=== PATIENT | female | born 1945 | race Caucasian/White ===

== ENCOUNTER 2016-08-27 12:50 | Emergency (ER) | payer OTHER ==
[~2016-08-27] VITALS: Ht 170.2 cm; Wt 98.1 kg
[~2016-08-27 12:50] MED LIST: ALPR1TAB3 PO; BUSP1TAB46 PO; CALC500C70 PO; EZET10TA47 PO; PARO30TA PO; SIMV40TA2 PO
[2016-08-27 12:54] VITALS: TEMP 37; Ht 170.2 cm; Wt 98.1 kg
[2016-08-27] MEDS ORDERED: BENZOCAIN/TETRACA/BUTAM SPRAY 200 APPLN/20 GM SPRY ONE (13:46)
[2016-08-27] MEDS ORDERED: CANNULA ONE ×2 (13:46)
--- NOTE | 2016-08-27 13:47 | EMERGENCY ROOM VISIT NOTE ---
ED Visit Note First contact with patient: 13:36 CHIEF COMPLAINT: Infection of the face HISTORY OF PRESENT ILLNESS: This 70-year-old female patient presents to the emergency department ambulatory after they noticed a hard, red, tender area beneath the left nare. The patient states it has been there for several days. She saw her family doctor 2 days ago and was started on Bactrim. She states that she squeezed it this morning and felt as though she got some pus out of it but it is now more painful and more swollen. She contacted her family doctor who referred her to the emergency department. It is slowly getting larger, more painful and tender. No fever, chills, or loss of appetite. There has been drainage from the area. There was no injury to the area preceding the infection. They rate the pain as sharp and 10/10. They have tried Bactrim and squeezing it. The patient has no history of subcutaneous abscesses. REVIEW OF SYSTEMS: A 6 system review of systems was completed with positives and pertinent negatives listed in the HPI. ALLERGIES: Known drug allergies MEDICATIONS: See nursing notes PMH: Asthma SOCIAL HISTORY: The patient lives locally PHYSICAL EXAM: Vital Signs: Reviewed Nurse's notes, vital signs stable. GENERAL : This is a 70 year old female, no acute distress, non toxic in appearance, well -developed well-nourished. SKIN: There is an erythematous indurated area beneath the left naris which measures about 0.5 cm in diameter. It is scabbed and indurated without fluctuance. There is a zone of inflammation around it but no lymphangitis. Capillary refill less than 2 seconds. EMERGENCY DEPARTMENT COURSE: I examined the patient. Initially, I did attempt to unroofing the scab with an 18-gauge needle. Cetacaine was used to attempt to topically anesthetize the skin. I was unable to unwilling the entire scab as the patient did not tolerate it. Therefore, incision and drainage was performed. After saline and Betadine cleansing and 3 mL of 1% buffered lidocaine anesthesia, the abscess was incised with a number 11 scalpel blade. There was no purulent drainage. There is a small amount of blood. There is no deep cavity. The area was cleaned with sterile saline and dressed with bacitracin and a bulky bandage. The patient tolerated the procedure well. The patient is already taking Bactrim. She will also be placed on Keflex. She was given Percocet in emergency department and will be given a small prescription for oxycodone. She states she has a follow-up appointment with her family doctor in 48 hours and is encouraged to keep this appointment for recheck. She should return sooner with any worsening swelling, fevers, pain. The patient was also seen and examined by Dr. da silva who agrees with the assessment and treatment plan. Blood pressure screening: The patient was found to have an elevated blood pressure and was referred to their primary care doctor for recheck and further treatment Medication Reconciliation: I attest that I have personally reviewed the patient' s current medication list. The patient was discharged home in stable condition. Problem List Medical Problems: (1) Asthma Status: Chronic Current/Historical Medications Scheduled Alprazolam (Xanax), 1 MG PO HS Buspirone Hcl (Buspirone Hcl), 7.5 MG PO BID Calcium/Vitamin D (Os-Vivek 500 Plus D), 1 TAB PO QPM Cephalexin Monohydrate (Keflex), 500 MG PO TID Ezetimibe (Zetia), 10 MG PO DAILY Paroxetine Hcl (Paxil), 60 MG PO DAILY Simvastatin (Zocor), 40 MG PO QPM Scheduled PRN Oxycodone Ir (Roxicodone Ir), 1-2 TAB PO Q4H PRN for Pain Allergies Coded Allergies: No Known Allergies (Verified , 08/27/16) Vital Signs Date Time Temp Pulse Resp B/P (MAP) Pulse Ox O2 Delivery O2 Flow Rate FiO2 08/27/16 15:15 76 18 200/110 92 08/27/16 12:54 37.0 89 20 198/115 93 Room Air Medications Administered Medications (Trade) Dose Ordered Sig/Kasie Route Start Time Stop Time Status Last Admin Dose Admin Benzocaine/ Butamben/ Tetracaine HCl (Cetacaine Christmas) 1 appln STK-MED ONCE .ROUTE 08/27/16 13:46 08/27/16 13:47 DC 08/27/16 13:46 1 APPLN Lidocaine HCl (Buffered Lidocaine 1% Inj) 20 ml NOW ONCE INFIL 08/27/16 14:00 08/27/16 14:01 DC 08/27/16 14:05 20 ML Oxycodone/ Acetaminophen (Percocet 5-325mg Tab) 1 tab NOW ONCE PO 08/27/16 14:00 08/27/16 14:01 DC 08/27/16 14:05 1 TAB Diphtheria/ Pertussis/Tetanus Vacc (Adacel Inj) 0.5 ml ONCE ONCE IM. 08/27/16 15:30 08/27/16 15:31 DC 08/27/16 15:23 0.5 ML Departure Information Impression Primary Impression: Facial cellulitis Dispostion Home / Self-Care Condition GOOD Prescriptions Oxycodone Ir (Roxicodone Ir) 5 Mg Tab 1-2 TAB PO Q4H Y for Pain, #15 TAB For Initial Treatment Prov: Marlene Huynh PA-C 08/27/16 Cephalexin Monohydrate (Keflex) 500 Mg Cap 500 MG PO TID for 7 Days, #21 CAP Prov: Marlene Huynh PA-C 08/27/16 Referrals Merlin Barrios M.D. (PCP) Patient Instructions ED [facility] Infec Abx Tx Only, [facility] Additional Instructions Continue the Bactrim as prescribed, until finished At the Keflex every 8 hours until finished Recheck with your family doctor on Sunday as scheduled Oxy IR 1-2 tablets every 4-6 hrs as needed for worse pain. No driving or alcohol use with Oxy IR. Return with any fevers, worsening swelling, worsening pain Do not squeeze or poke the area
[2016-08-27] MEDS ORDERED: XYLOCAINE 1%/SOD BICARB 20 ML VIAL INFIL ONE (14:00)
[2016-08-27] MEDS ORDERED: OXYCODONE/ACETAMINOPHEN 5-325 TAB PO ONE (14:00)
[2016-08-27] MEDS ORDERED: OXYC1TAB3 PO (14:35)
[2016-08-27] MEDS ORDERED: CEPH500C PO (14:35)
[2016-08-27 15:15] VITALS: BP 200/110; PULSE 76; O2SAT 92
[2016-08-27] MEDS ORDERED: DIPHTHERIA/TETANUS/PERTUSSIS 0.5 ML SYR/VIAL IM. ONE (15:30)
== END 2016-08-27 15:20 | disposition home or self-care (01) ==
LOC: C.EDB 12:51 → C.EDD 15:20
DX: L03.211 Cellulitis of face (principal); J45.909 Unspecified asthma, uncomplicated; Z23 Encounter for immunization

== ENCOUNTER → 2017-05-15 | Outpatient (CLI) | payer OTHER ==
[~2017-05-15] MED LIST changes: +APIX1TAB3 PO; +CALC-5 PO; +METO25TA4 PO; +OPTIRAY 320 IV PRN; +OXYC1TAB3 PO
--- NOTE | 2017-05-15 16:17 | DIAGNOSTIC IMAGING REPORT ---
CT OF THE CHEST WITH IV CONTRAST CLINICAL HISTORY: Pulmonary nodule. New opacity right medial lung base on chest radiograph. COMPARISON STUDY: Chest CT December 26, 2007, July 07, 2011 and chest radiograph May 26, 2015. TECHNIQUE: Following IV administration of 99 mL of Optiray-320, helical axial images of the chest were obtained. Sagittal and coronal reconstructions were viewed as well as maximal intensity projections on an independent 3-D workstation. A dose lowering technique was utilized adhering to the principles of ALARA. CT DOSE: 624.01 mGy.cm FINDINGS: No enlarged axillary, mediastinal or hilar lymph nodes are present. The size of the heart is at the upper limits of normal. There is no pneumothorax or pleural effusion. Linear right middle lobe and right lower lobe opacity represents atelectasis. There is no consolidation to suggest pneumonia. There are secretions within right lower lobe segmental bronchi. There is mild bronchial wall thickening. No suspicious osseous lesions are present. Prominent upper abdominal lymph nodes remain unchanged and CT of April 30, 2013. IMPRESSION: 1. No suspicious pulmonary nodules. Linear right middle lobe and right lower lobe opacities consistent with atelectasis. 2. No acute intrathoracic findings. Electronically signed by: Aston Dougherty M.D. 05/15/2017 4:16 PM Dictated Date/Time: 05/15/2017 4:10 PM
== END | disposition home or self-care (01) ==
LOC: C.CTS 15:46
PROVIDERS: ATTEND Family Medicine
DX: R91.1 Solitary pulmonary nodule (principal)

== ENCOUNTER 2017-05-18 14:35 | Emergency (ER) | payer OTHER ==
[~2017-05-18] VITALS: Ht 172.7 cm; Wt 99.9 kg
[~2017-05-18 14:35] MED LIST changes: -APIX1TAB3 PO; -BUSP1TAB46 PO; -CALC-5 PO; -METO25TA4 PO; -OPTIRAY 320 IV PRN
[2017-05-18 14:36] VITALS: TEMP 36.8
[2017-05-18] MEDS ORDERED: DILTIAZEM HCL 5 MG/ML 5 ML VIAL IV STA (14:54)
--- NOTE | 2017-05-18 15:09 | DIAGNOSTIC IMAGING REPORT ---
CHEST ONE VIEW PORTABLE CLINICAL HISTORY: EVALUATE RESPIRATORY DISTRESS.DYSPNEA dyspnea COMPARISON STUDY: 05/26/2015 FINDINGS: Mild cardiomegaly. Slight increase in pulmonary vasculature. Bibasilar atelectatic change. IMPRESSION: Mild cardiomegaly. Mild bibasilar atelectasis. The above report was generated using voice recognition software. It may contain grammatical, syntax or spelling errors. Electronically signed by: Merlin Preciado M.D. 05/18/2017 3:08 PM Dictated Date/Time: 05/18/2017 3:07 PM
[2017-05-18 15:14] VITALS: O2SAT 93; Ht 172.7 cm; Wt 99.9 kg
[2017-05-18 15:41] LABS: ISTAT CREATININE 0.8 mg/dl (0.6-1.3); ISTAT IONIZED CALCIUM 1.11 mmol/l (1.12-1.32)
[2017-05-18 15:42] LABS: BASO % 0.4 %; BASO ABS # 0.03 K/uL (0-0.2); EOS % 9.3 %; EOS ABS # 0.78 K/uL (0-0.5); HEMATOCRIT 46.9 % (37-47); HEMOGLOBIN 16.2 g/dL (12.0-16.0); IG# 0.01 K/uL (0.00-0.02); LYMPH % 34.1 %; LYMPH ABS # 2.86 K/uL (1.2-3.4); MEAN CELL VOLUME 96.1 fL (80-100); MEAN CORPUSCULAR HEMOGLOBIN 33.2 pg (25-34); MEAN CORPUSCULAR HGB CONC 34.5 g/dl (32-36); MONO % 6.2 %; MONO ABS # 0.52 K/uL (0.11-0.59); NEUT % 49.9 %; NEUT ABS # 4.19 K/uL (1.4-6.5); PLATELET COUNT 255 K/uL (130-400); RED CELL DISTRIBUTION WIDTH CV 14.3 % (11.5-14.5); RED CELL DISTRIBUTION WIDTH SD 50.9 fL (36.4-46.3); WHITE BLOOD COUNT 8.39 K/uL (4.8-10.8)
[2017-05-18] MEDS ORDERED: CALC-5 PO (15:44)
[2017-05-18 15:53] LABS: PTT PATIENT 26.3 SECONDS (21.0-31.0)
[2017-05-18] MEDS ORDERED: METOPROLOL SUCC 50MG EXT REL TAB PO STA (16:01)
[2017-05-18 16:07] LABS: ALBUMIN 3.3 gm/dl (3.4-5.0); CALCIUM 8.6 mg/dl (8.5-10.1); CREATININE 0.83 mg/dl (0.60-1.20)
[2017-05-18] MEDS ORDERED: APIXABAN 2.5 MG TAB PO STA (16:08)
[2017-05-18 16:18] LABS: PHOSPHORUS 3.9 mg/dl (2.5-4.9); TOTAL PROTEIN 6.6 gm/dl (6.4-8.2)
[2017-05-18] MEDS ORDERED: METO25TA4 PO (17:00)
[2017-05-18] MEDS ORDERED: APIX1TAB3 PO (17:00)
--- NOTE | 2017-05-18 17:00 | EMERGENCY ROOM VISIT NOTE ---
History Report prepared by Jennifer: Dawson Rollins Under the Supervision of: Dr. Seamus Flaherty M.D. First contact with patient: 14:41 Chief Complaint: CARDIAC ASSESSMENT Stated Complaint: HEART FLUTTER History of Present Illness The patient is a 71 year old white female with a past medical history of asthma , GERD, HLD, depression who presents to the ED with a cc of intermittent heart palpitations beginning a few weeks ago. Patient was seen by PCP today for symptoms of pneumonia and was found to have an irregular heart rhythm. Describes her palpitations as "fluttering" sensations in her chest. Positive shortness of breath, diaphoresis, and chest heaviness. Breathing worsened with laying down and exertion. Negative leg swelling, abdominal pain, vomiting. No problems with eating, drinking, defecation, or urination. No recent prolonged travel, or antibiotic use. No history of blood clots. Source of History: patient Onset: A few weeks ago Position: chest Quality: other ("fluttering" sensation) Timing: intermittent Associated Symptoms: + diaphoresis, + chest pain (heaviness), + SOB, + nausea, No vomiting Note: Negative leg swelling. Review of Systems See HPI for pertinent positives and negatives. A total of ten systems were reviewed and were otherwise negative. Past Medical & Surgical Medical Problems: (1) Asthma (2) Depressive Disorder Nec (3) Esophageal Reflux (4) Hyperlipidemia Nec/Nos Family History Heart disease Social History Smoking Status: Current Every Day Smoker Alcohol Use: none Drug Use: none Marital Status: single Housing Status: lives alone Occupation Status: retired Current/Historical Medications Scheduled Alprazolam (Xanax), 1 MG PO HS Apixaban (Eliquis), 5 MG PO BID Buspirone Hcl (Buspirone Hcl), 7.5 MG PO BID Calcium-Magnesium W/ Vitamin D (Calcium 500), 500 MG PO DAILY Ezetimibe (Zetia), 10 MG PO DAILY Metoprolol Succinate (Toprol Xl), 1 TAB PO DAILY Paroxetine Hcl (Paxil), 60 MG PO DAILY Simvastatin (Zocor), 40 MG PO QPM Allergies Coded Allergies: No Known Allergies (Verified , 08/27/16) Physical Exam Vital Signs Date Time Temp Pulse Resp B/P (MAP) Pulse Ox O2 Delivery O2 Flow Rate FiO2 05/18/17 17:16 107 20 165/112 92 Room Air 05/18/17 16:45 90 16 93 Room Air 05/18/17 16:31 133/84 05/18/17 16:15 56 22 92 05/18/17 16:10 63 14 148/78 92 Room Air 05/18/17 16:05 66 18 92 Room Air 05/18/17 16:01 125/87 05/18/17 16:00 62 22 91 Room Air 05/18/17 15:55 72 18 91 Room Air 05/18/17 15:50 78 16 91 05/18/17 15:46 131/80 05/18/17 15:45 75 15 91 05/18/17 15:40 76 19 92 05/18/17 15:35 77 20 92 05/18/17 15:33 79 18 121/81 94 Room Air 05/18/17 15:31 121/81 05/18/17 15:30 74 23 91 05/18/17 15:26 92 05/18/17 15:25 106 15 91 05/18/17 15:20 153 22 93 05/18/17 15:16 153 05/18/17 15:16 139/99 05/18/17 15:15 151 21 94 05/18/17 15:14 94 Room Air 05/18/17 15:14 93 Room Air 05/18/17 15:06 132/107 05/18/17 14:36 36.8 155 17 148/92 92 Room Air Physical Exam GENERAL: Awake, alert, well-appearing, NAD HENT: Normocephalic, atraumatic. EYES: Normal conjunctiva. Sclera non-icteric. NECK: Supple. No nuchal rigidity. FROM. RESPIRATORY: Trace wheezing on the right side. CARDIAC: Tachycardic rate, regular rhythm, no MRG ABDOMEN: Soft, NTND, BS+ MSK: No chest wall TTP, no LE edema NEURO: GCS 15, CN 2-12 intact, moves all 4s on command SKIN: No rash or jaundice noted. Medical Decision & Procedures ER Provider Diagnostic Interpretation: Radiology results as stated below per my review and radiologist interpretation: CHEST ONE VIEW PORTABLE FINDINGS: Mild cardiomegaly. Slight increase in pulmonary vasculature. Bibasilar atelectatic change. IMPRESSION: Mild cardiomegaly. Mild bibasilar atelectasis. The above report was generated using voice recognition software. It may contain grammatical, syntax or spelling errors. Electronically signed by: Merlin Preciado M.D. 05/18/2017 3:08 PM Laboratory Results 05/18/17 15:20 Red Blood Count 4.88, Mean Corpuscular Volume 96.1, Mean Corpuscular Hemoglobin 33.2, Mean Corpuscular Hemoglobin Concent 34.5, Mean Platelet Volume 10.0, Neutrophils (%) (Auto) 49.9, Lymphocytes (%) (Auto) 34.1, Monocytes (%) (Auto) 6.2, Eosinophils (%) (Auto) 9.3, Basophils (%) (Auto) 0.4, Neutrophils # (Auto) 4.19, Lymphocytes # (Auto) 2.86, Monocytes # (Auto) 0.52, Eosinophils # (Auto) 0.78, Basophils # (Auto) 0.03 05/18/17 15:20 Test 05/18/17 15:20 05/18/17 15:29 05/18/17 15:30 White Blood Count 8.39 K/uL (4.8-10.8) Red Blood Count 4.88 M/uL (4.2-5.4) Hemoglobin 16.2 g/dL (12.0-16.0) Hematocrit 46.9 % (37-47) Mean Corpuscular Volume 96.1 fL (80-100) Mean Corpuscular Hemoglobin 33.2 pg (25-34) Mean Corpuscular Hemoglobin Concent 34.5 g/dl (32-36) Platelet Count 255 K/uL (130-400) Mean Platelet Volume 10.0 fL (7.4-10.4) Neutrophils (%) (Auto) 49.9 % Lymphocytes (%) (Auto) 34.1 % Monocytes (%) (Auto) 6.2 % Eosinophils (%) (Auto) 9.3 % Basophils (%) (Auto) 0.4 % Neutrophils # (Auto) 4.19 K/uL (1.4-6.5) Lymphocytes # (Auto) 2.86 K/uL (1.2-3.4) Monocytes # (Auto) 0.52 K/uL (0.11-0.59) Eosinophils # (Auto) 0.78 K/uL (0-0.5) Basophils # (Auto) 0.03 K/uL (0-0.2) RDW Standard Deviation 50.9 fL (36.4-46.3) RDW Coefficient of Variation 14.3 % (11.5-14.5) Immature Granulocyte % (Auto) 0.1 % Immature Granulocyte # (Auto) 0.01 K/uL (0.00-0.02) Prothrombin Time 10.7 SECONDS (9.0-12.0) Prothromb Time International Ratio 1.0 (0.9-1.1) Activated Partial Thromboplast Time 26.3 SECONDS (21.0-31.0) Partial Thromboplastin Ratio 1.0 Est Creatinine Clear Calc Drug Dose 76.8 ml/min Estimated GFR () 82.2 Estimated GFR (Non- 70.9 BUN/Creatinine Ratio 27.1 (10-20) Calcium Level 8.6 mg/dl (8.5-10.1) Phosphorus Level 3.9 mg/dl (2.5-4.9) Magnesium Level 2.3 mg/dl (1.8-2.4) Total Bilirubin 0.7 mg/dl (0.2-1) Aspartate Amino Transf (AST/SGOT) 50 U/L (15-37) Alanine Aminotransferase (ALT/SGPT) 49 U/L (12-78) Alkaline Phosphatase 59 U/L (45-117) Troponin I 0.024 ng/ml (0-0.045) Pro-B-Type Natriuretic Peptide 1201 pg/ml (0-900) Total Protein 6.6 gm/dl (6.4-8.2) Albumin 3.3 gm/dl (3.4-5.0) Globulin 3.3 gm/dl (2.5-4.0) Albumin/Globulin Ratio 1.0 (0.9-2) Thyroid Stimulating Hormone (TSH) 2.590 uIu/ml (0.300-4.500) Bedside Troponin I < 0.030 ng/ml (0-0.045) Bedside Hemoglobin 16.3 g/dl (12.0-16.0) Bedside Hematocrit 48 % (37-47) Bedside Sodium 143 mEq/L (135-144) Bedside Potassium 4.0 mEq/L (3.3-5.0) Bedside Chloride 105 mEq/L (101-112) Bedside Total CO2 30 mEq/l (24-31) Anion Gap 13.0 mmol/L (16-25) Bedside Blood Urea Nitrogen 23 mg/dl (7-18) Bedside Creatinine 0.8 mg/dl (0.6-1.3) Bedside Glucose (other) 104 mg/dl (70-99) Bedside Ionized Calcium (Eriberto) 1.11 mmol/l (1.12-1.32) Laboratory results reviewed by me Medications Administered Medications (Trade) Dose Ordered Sig/Kasie Route Start Time Stop Time Status Last Admin Dose Admin Diltiazem HCl (Cardizem Inj) 25 mg NOW STAT IV 05/18/17 14:54 05/18/17 14:55 DC 05/18/17 15:21 25 MG Metoprolol Succinate (Toprol Xl Tab) 25 mg ONE STAT PO 05/18/17 16:01 05/18/17 16:02 DC 05/18/17 16:11 25 MG Apixaban (Eliquis Tab) 5 mg ONE STAT PO 05/18/17 16:08 05/18/17 16:10 DC 05/18/17 16:56 5 MG ECG Per My Interpretation Indication: palpitations Rate (beats per minute): V-rate 156 Rhythm: atrial flutter (2-1 conduction) Findings: T-wave inversion (slight, lateral leads), other (Normal intervals. Right axis deviation. ) Change: Repeat ECG shows Atrial Flutter with a variable block (more consistently 3-1). Ventricular rate of 85. TWI's seen laterally. ED Course 1445: The patient was evaluated in room C7. A complete history and physical exam was performed. 1702: I reevaluated the patient. Discussed results and discharge instructions: she verbalized understanding and agreement. The patient is ready for discharge. Medical Decision The patient is a 71 year old white female with a past medical history of asthma , GERD, HLD, depression who presents to the ED with a cc of intermittent heart palpitations beginning a few weeks ago. Differential diagnosis: Etiologies such as premature contractions, electrolyte abnormality, cardiac dysrhythmia, thyroid dysfunction, pulmonary embolism, infection, gastrointestinal, as well as others were entertained. Patient was seen and evaluated the bedside. Patient did complain of some rapid heart rate and some dyspnea. Patient states symptoms for approximately several weeks. Patient was seen by her primary care physician who noted she had an elevated heart rate and was referred in here. Patient denies any prior history of DVT or PE. Denies any recent prolonged car or plane travel. Patient denies any chest pains. Patient did have blood work, EKG, troponin, chest x-ray. Patient's EKG likely to show 2-1 atrial flutter. Patient was given 25 mg of Cardizem IV, and patient did have improvement in her ventricular rate with a variable but mostly 3-1 conduction in the 80s and 90s. Upon reassessment of the patient the patient was feeling improved. [id number] of 3. I discussed the patient with the on-call clinical engineering manager who recommended apixaban, Toprol 25 mg daily, and would call the patient to schedule a follow-up as well as outpatient echocardiogram. Upon reassessment the patient was feeling improved and no longer had any acute symptomatic complaints. Patient did receive her first dose of Toprol and apixaban. The patient prescriptions were provided. Patient was deemed suitable for outpatient follow-up and treatment at this time after consultation with the clinical engineering manager who agreed with the assessment and plan. Patient was given strict follow-up, discharge, and return precautions. All questions were answered. Patient was deemed suitable for outpatient follow-up at this time. Patient agreed with the plan of care and was safely discharged home. Medication Reconcilliation Current Medication List: was personally reviewed by me Blood Pressure Screening Patient's blood pressure: Normal blood pressure Blood pressure disposition: Did not require urgent referral Consults Time Called: [phone] Consulting Physician: Dr. Mora - Cardiology Returned Call: [phone] Discussed the patient's case. Dr. Mora recommends starting on Metoprolol, and NOAC. Will call patient to schedule follow up and outpatient echo. Impression Primary Impression: Atrial flutter with rapid ventricular response Additional Impression: SOB (shortness of breath) Critical Care I have personally spent greater than 35 minutes of critical care time in the direct management of this patient. This includes bedside care, interpretation of diagnostic studies, and testing, discussion with consultants, patient, and family members, and other required patient management activities. This 35 minutes is in excess of all separately billable procedures. Scribe Attestation The scribe's documentation has been prepared under my direction and personally reviewed by me in its entirety. I confirm that the note above accurately reflects all work, treatment, procedures, and medical decision making performed by me. Departure Information Dispostion Home / Self-Care Prescriptions Metoprolol Succinate (TOPROL XL) 25 Mg Tabcr 1 TAB PO DAILY for 30 Days, #30 TAB 5 Refills Prov: Seamus Flaherty M.D. 05/18/17 Apixaban (ELIQUIS) 5 Mg Tab 5 MG PO BID for 30 Days, #60 TAB Prov: Seamus Flaherty M.D. 05/18/17 Referrals Merlin Barrios M.D. (PCP) Patient Instructions Apixaban oral tablets, Atrial Flutter, My [facility] Additional Instructions Please return to the emergency department if you have worsening or recurrent symptoms not amenable to at-home treatment. Please call for a follow-up appointment with her primary care physician. Please take your medications as prescribed. If you have other concerns and/or complaints please feel free to also call your primary care physician's office or return the ED for further evaluation, management, and treatment. Please consider smoking cessation. Take your medications as prescribed. You will have a phonecall to arrange f/u with the clinical engineering manager likely within the week. If you do not receive a call by Sunday please call Dr. Mora's office to arrange a f/u appointment. You have been examined and treated today on an emergency basis only. This is not a substitute for, or an effort to provide, complete comprehensive medical care. It is impossible to recognize and treat all injuries or illnesses in a single emergency department visit. It is therefore important that you follow up closely with [facility], your PCP, and/or your specialist(s). Call as soon as possible for an appointment. Thank you for your time and consideration. I look forward to speaking with you again soon. Please don't hesitate to call us if you have any questions. Problem Qualifiers
[2017-05-18] MEDS ORDERED: BUSP1TAB46 PO (17:10)
[2017-05-18 17:16] VITALS: BP 165/112; PULSE 107; O2SAT 92
== END 2017-05-18 17:50 | disposition home or self-care (01) ==
LOC: C.EDB 14:35 → C.EDC 17:50
DX: I48.92 Unspecified atrial flutter (principal); J45.909 Unspecified asthma, uncomplicated; K21.9 Gastro-esophageal reflux disease without esophagitis; E78.5 Hyperlipidemia, unspecified; F32.9 Major depressive disorder, single episode, unspecified; F17.210 Nicotine dependence, cigarettes, uncomplicated; Z79.01 Long term (current) use of anticoagulants; Z79.899 Other long term (current) drug therapy

== ENCOUNTER 2017-11-13 14:50 | Observation (INO) | payer OTHER ==
[~2017-11-13] VITALS: Ht 172.7 cm; Wt 97.6 kg
[2017-11-13] VITALS (7 sets, daily range): BP systolic 134–180; BP diastolic 77–109; PULSE 62–78; TEMP 36.6–36.7; O2SAT 92; Ht 172.7 cm; Wt 97.6 kg
[~2017-11-13 14:50] MED LIST changes: +APIX1TAB3 PO; +ASCO500T16 PO; +BUSP1TAB46 PO; -CALC500C70 PO; +CALCTAB7 PO; +CHOL1000 PO; +CRS/10 PO; +CYAN10005 PO; +IBUP-1050 PO; +LSN10 PO; +METO25TA3 PO; -OXYC1TAB3 PO; -SIMV40TA2 PO; +SUMA100T16 PO; +VNTHFA/IN INH
--- NOTE | 2017-11-13 15:11 | EMERGENCY ROOM VISIT NOTE ---
History Report prepared by Jennifer: Mohamud Srivastava Under the Supervision of: Dr. Seamus Flaherty M.D. First contact with patient: 14:55 Stated Complaint: SOB/AFIB History of Present Illness The patient is a 71 year old white female with a past medical history of HTN, Hyperlipidemia, COPD, A-Flutter status post CTI Ablation May 2017 who is on Eliquis who presents to the Emergency Room with complaints of chest pain, shortness of breath, and rapid heart rate since yesterday. The patient states the symptoms started x26 hours ago and gradually came on. She states the symptoms have been constant, and notes nothing makes it worse. She does note the symptoms have started to get better at this time, but are still present. The patient states she is still an active 1 PPD smoker. She denies any leg swelling or unexplained recent weight gain. The patient denies a history of blood clots. The patient states she does note see a Zoo Director. Source of History: patient Onset: x1 day Position: chest Symptom Intensity: moderate Quality: ache Timing: constant Modifying Factors (Relieving): rest Associated Symptoms: + chills, + chest pain, + SOB, No fevers, No headache, No cough, No nausea, No vomiting, No abdominal pain, No diarrhea Review of Systems See HPI for pertinent positives and negatives. A total of ten systems were reviewed and were otherwise negative. Constitutional: No fever, No chills Respiratory: + shortness of breath Cardiovascular: + chest pain Abdomen: No pain, No nausea, No vomiting, No diarrhea Past Medical & Surgical Medical Problems: (1) Anxiety (2) Atrial flutter (3) COPD (chronic obstructive pulmonary disease) (4) Depressive Disorder Nec (5) Esophageal Reflux (6) Hyperlipidemia Nec/Nos (7) Hypertension (8) Left ventricular diastolic dysfunction (9) Tobacco abuse Surgical Problems: (1) History of breast biopsy (2) History of discectomy (3) History of laparoscopy (4) Status post ablation of atrial flutter Family History Heart disease Social History Smoking Status: Current Every Day Smoker Alcohol Use: none Drug Use: none Marital Status: single Housing Status: lives alone Occupation Status: retired Current/Historical Medications Scheduled Alprazolam (Xanax), 1.5 MG PO HS Apixaban (Eliquis), 5 MG PO BID Ascorbic Acid (Ascorbic Acid), 500 MG PO DAILY Buspirone Hcl (Buspirone Hcl), 7.5 MG PO BID Calcium Carbonate-Vitamin D W/ (Caltrate 600 Plus), 1 TAB PO DAILY Cholecalciferol (Vitamin D3), 1 TAB PO DAILY Cyanocobalamin (Vitamin B-12), 1,000 MCG PO DAILY Ibuprofen (Advil), 200 MG PO HS Lisinopril (Zestril), 10 MG PO QAM Paroxetine (Paroxetine HCl), 2 TAB PO DAILY Rosuvastatin Calcium (Crestor), 10 MG PO DAILY Sumatriptan Succinate (Imitrex), 100 MG PO PRN Allergies Coded Allergies: No Known Allergies (Verified , 11/13/17) Physical Exam Vital Signs Date Time Temp Pulse Resp B/P (MAP) Pulse Ox O2 Delivery O2 Flow Rate FiO2 11/13/17 16:31 177/92 11/13/17 16:27 48 17 92 11/13/17 16:01 165/83 11/13/17 15:58 45 16 91 Room Air 11/13/17 15:32 136/94 11/13/17 15:28 48 17 93 Room Air 11/13/17 15:19 95 Room Air 11/13/17 15:08 53 15 132/90 93 Room Air 11/13/17 15:05 48 11/13/17 14:57 37.1 49 149/76 95 Room Air 11/13/17 14:57 95 Room Air Physical Exam GENERAL: Wearing sunglasses. Awake, alert, well-appearing, NAD HENT: Normocephalic, atraumatic. EYES: Normal conjunctiva. Sclera non-icteric. PERRL. No anisocoria. NECK: Supple. No nuchal rigidity. FROM. RESPIRATORY: Crackles right base No rhonchi or wheezing. CARDIAC: Bradycardic. no MRG ABDOMEN: Soft, NTND, BS+ MSK: No calf pain. Negative Maia's sign. No chest wall TTP, no LE edema NEURO: GCS 15, CN 2-12 intact, moves all 4s on command SKIN: No rash or jaundice noted. Medical Decision & Procedures ER Provider Diagnostic Interpretation: Radiology results as stated below per my review and radiologist interpretation: CHEST ONE VIEW PORTABLE HISTORY: 71 years-old Female EVALUATE RESPIRATORY DISTRESS.DYSPNEA acute respiratory distress COMPARISON: Chest radiograph 05/18/2017 TECHNIQUE: Portable AP view of the chest. FINDINGS: The cardiac silhouette is mildly enlarged. Subsegmental bibasilar opacities redemonstrated. No pneumothorax, pleural effusion or overt pulmonary edema. Degenerative changes of the shoulders and spine. IMPRESSION: 1. Cardiomegaly without overt pulmonary edema. 2. Subsegmental bibasilar opacities suggest atelectasis/scarring. Laboratory Results 11/13/17 15:35 Red Blood Count 4.90, Mean Corpuscular Volume 95.9, Mean Corpuscular Hemoglobin 32.4, Mean Corpuscular Hemoglobin Concent 33.8, Mean Platelet Volume 10.0, Neutrophils (%) (Auto) 50.2, Lymphocytes (%) (Auto) 32.1, Monocytes (%) (Auto) 7.3, Eosinophils (%) (Auto) 9.9, Basophils (%) (Auto) 0.4, Neutrophils # (Auto) 3.81, Lymphocytes # (Auto) 2.43, Monocytes # (Auto) 0.55, Eosinophils # (Auto) 0.75, Basophils # (Auto) 0.03 11/13/17 15:35 Test 11/13/17 15:35 11/13/17 16:10 White Blood Count 7.58 K/uL (4.8-10.8) Red Blood Count 4.90 M/uL (4.2-5.4) Hemoglobin 15.9 g/dL (12.0-16.0) Hematocrit 47.0 % (37-47) Mean Corpuscular Volume 95.9 fL (80-100) Mean Corpuscular Hemoglobin 32.4 pg (25-34) Mean Corpuscular Hemoglobin Concent 33.8 g/dl (32-36) Platelet Count 226 K/uL (130-400) Mean Platelet Volume 10.0 fL (7.4-10.4) Neutrophils (%) (Auto) 50.2 % Lymphocytes (%) (Auto) 32.1 % Monocytes (%) (Auto) 7.3 % Eosinophils (%) (Auto) 9.9 % Basophils (%) (Auto) 0.4 % Neutrophils # (Auto) 3.81 K/uL (1.4-6.5) Lymphocytes # (Auto) 2.43 K/uL (1.2-3.4) Monocytes # (Auto) 0.55 K/uL (0.11-0.59) Eosinophils # (Auto) 0.75 K/uL (0-0.5) Basophils # (Auto) 0.03 K/uL (0-0.2) RDW Standard Deviation 50.1 fL (36.4-46.3) RDW Coefficient of Variation 14.2 % (11.5-14.5) Immature Granulocyte % (Auto) 0.1 % Immature Granulocyte # (Auto) 0.01 K/uL (0.00-0.02) Prothrombin Time 10.7 SECONDS (9.0-12.0) Prothromb Time International Ratio 1.0 (0.9-1.1) Activated Partial Thromboplast Time 28.8 SECONDS (21.0-31.0) Partial Thromboplastin Ratio 1.1 Anion Gap 8.0 mmol/L (3-11) Est Creatinine Clear Calc Drug Dose 97.5 ml/min Estimated GFR () 103.5 Estimated GFR (Non- 89.3 BUN/Creatinine Ratio 31.6 (10-20) Calcium Level 8.8 mg/dl (8.5-10.1) Phosphorus Level 4.4 mg/dl (2.5-4.9) Magnesium Level 2.2 mg/dl (1.8-2.4) Total Bilirubin 0.2 mg/dl (0.2-1) Aspartate Amino Transf (AST/SGOT) 41 U/L (15-37) Alanine Aminotransferase (ALT/SGPT) 51 U/L (12-78) Alkaline Phosphatase 71 U/L (45-117) Troponin I < 0.015 ng/ml (0-0.045) Pro-B-Type Natriuretic Peptide 347 pg/ml (0-900) Total Protein 6.6 gm/dl (6.4-8.2) Albumin 3.2 gm/dl (3.4-5.0) Globulin 3.4 gm/dl (2.5-4.0) Albumin/Globulin Ratio 0.9 (0.9-2) Thyroid Stimulating Hormone (TSH) 1.520 uIu/ml (0.300-4.500) Urine Color YELLOW Urine Appearance CLEAR (CLEAR) Urine pH 6.0 (4.5-7.5) Urine Specific [place] 1.020 (1.000-1.030) Urine Protein NEG (NEG) Urine Glucose (UA) NEG (NEG) Urine Ketones NEG (NEG) Urine Occult Blood NEG (NEG) Urine Nitrite NEG (NEG) Urine Bilirubin NEG (NEG) Urine Urobilinogen NEG (NEG) Urine Leukocyte Esterase SMALL (NEG) Urine WBC (Auto) 5-10 /hpf (0-5) Urine RBC (Auto) 0-4 /hpf (0-4) Urine Hyaline Casts (Auto) 1-5 /lpf (0-5) Urine Epithelial Cells (Auto) 5-10 /lpf (0-5) Urine Bacteria (Auto) NEG (NEG) Laboratory results reviewed by me ECG Per My Interpretation Indication: chest pain, SOB/dyspnea Rate (beats per minute): 53 Rhythm: other (Junctional escape rhythm) Findings: other (ventricular rate of 53, single PAC noted) Comparison ECG Date: Rhythm has changed when compared to May 2017, otherwise no significant changes Medical Decision Nursing notes reviewed. Ancillary studies and prior records reviewed. The patient is a 71 year old white female with a past medical history of HTN, Hyperlipidemia, COPD, A-Flutter status post CTI Ablation May 2017 who is on Eliquis who presents to the Emergency Room with complaints of chest pain, shortness of breath, and rapid heart rate since yesterday. Differential diagnosis: Etiologies such as infections, reactive airway disease, pneumonia, pneumothorax , COPD, CHF, cardiac ischemia, pulmonary embolism, musculoskeletal, gastrointestinal, as well as others were entertained. Patient was seen and evaluated the bedside. The patient is presenting with complaints of some shortness of breath and did complain of some palpitations. The patient does have a known history of atrial flutter and has been taking Toprol as well as blood thinning medication. The patient also did have an ablation completed back in May. The patient was referred from cardiology clinic. The patient does still smoke and she was counseled on smoking cessation. Patient did have blood work completed along with EKG troponin chest x-ray. Patient's chest x-ray shows atelectasis. EKG does show a possible junctional rhythm with a PAC. Difficult to see if the patient does have distinct P waves. Patient's other blood work is fairly unremarkable. I did discuss the case with the on-call accounts manager who did evaluate the patient at the bedside and recommended observation and with talked about a possible treadmill stress in the morning. I did convey this to the on-call hospitalist who agreed to further evaluate and treat the patient. Of note the patient reportedly had been continuing to take her Cardizem and had been told to stop this. This may be contributory to her bradycardia. Medication Reconcilliation Current Medication List: was personally reviewed by me Blood Pressure Screening Patient's blood pressure: Elevated blood pressure Blood pressure disposition: Referred to PCP Consults Consulting Physician: Dr. Boles Returned Call: [phone] Recommends observation, cardiac work up and possible treadmill stress test in AM. Additional Consults: Time Called: 1633 Consulted Physician: Dr. Sepulveda ([facility] Hospitalist) Returned Call: [phone] Additional Comments: Agrees to Admit Impression Primary Impression: SOB (shortness of breath) Additional Impressions: Junctional bradycardia Encounter for smoking cessation counseling Scribe Attestation The scribe's documentation has been prepared under my direction and personally reviewed by me in its entirety. I confirm that the note above accurately reflects all work, treatment, procedures, and medical decision making performed by me. Departure Information Dispostion Being Evaluated By Hospitalist Referrals Merlin Barrios M.D. (PCP) Forms HOME CARE DOCUMENTATION FORM, IMPORTANT VISIT INFORMATION Patient Instructions My [facility] Problem Qualifiers
--- NOTE | 2017-11-13 15:35 | DIAGNOSTIC IMAGING REPORT ---
CHEST ONE VIEW PORTABLE HISTORY: 71 years-old Female EVALUATE RESPIRATORY DISTRESS.DYSPNEA acute respiratory distress COMPARISON: Chest radiograph 05/18/2017 TECHNIQUE: Portable AP view of the chest. FINDINGS: The cardiac silhouette is mildly enlarged. Subsegmental bibasilar opacities redemonstrated. No pneumothorax, pleural effusion or overt pulmonary edema. Degenerative changes of the shoulders and spine. IMPRESSION: 1. Cardiomegaly without overt pulmonary edema. 2. Subsegmental bibasilar opacities suggest atelectasis/scarring. The above report was generated using voice recognition software. It may contain grammatical, syntax or spelling errors. Electronically signed by: John Andrews M.D. 11/13/2017 3:34 PM Dictated Date/Time: 11/13/2017 3:33 PM
[2017-11-13 15:43] LABS: BASO % 0.4 %; BASO ABS # 0.03 K/uL (0-0.2); EOS % 9.9 %; EOS ABS # 0.75 K/uL (0-0.5); HEMOGLOBIN 15.9 g/dL (12.0-16.0); IG# 0.01 K/uL (0.00-0.02); LYMPH % 32.1 %; LYMPH ABS # 2.43 K/uL (1.2-3.4); MEAN CELL VOLUME 95.9 fL (80-100); MEAN CORPUSCULAR HEMOGLOBIN 32.4 pg (25-34); MEAN CORPUSCULAR HGB CONC 33.8 g/dl (32-36); MONO % 7.3 %; MONO ABS # 0.55 K/uL (0.11-0.59); NEUT % 50.2 %; NEUT ABS # 3.81 K/uL (1.4-6.5); PLATELET COUNT 226 K/uL (130-400); RED CELL DISTRIBUTION WIDTH CV 14.2 % (11.5-14.5); RED CELL DISTRIBUTION WIDTH SD 50.1 fL (36.4-46.3); WHITE BLOOD COUNT 7.58 K/uL (4.8-10.8)
[2017-11-13 15:52] LABS: PTT PATIENT 28.8 SECONDS (21.0-31.0)
[2017-11-13 16:10] LABS: ALBUMIN 3.2 gm/dl (3.4-5.0); ALKALINE PHOSPHATASE 71 U/L (45-117); ALT/SGPT 51 U/L (12-78); AST/SGOT 41 U/L (15-37); BLOOD UREA NITROGEN 21 mg/dl (7-18); CALCIUM 8.8 mg/dl (8.5-10.1); CARBON DIOXIDE 26 mmol/L (21-32); CREATININE 0.65 mg/dl (0.60-1.20); GLUCOSE 90 mg/dl (70-99); PHOSPHORUS 4.4 mg/dl (2.5-4.9); POTASSIUM 4.3 mmol/L (3.5-5.1); SODIUM 141 mmol/L (136-145); TOTAL PROTEIN 6.6 gm/dl (6.4-8.2)
[2017-11-13] MEDS ORDERED: ACETAMINOPHEN 325 MG TAB PO PRN (17:15)
[2017-11-13] MEDS ORDERED: LEVALBUTEROL/IPRATROPIUM NEB INH PRN ×2 (17:15→17:30)
[2017-11-13] MEDS ORDERED: IPRATROPIUM BROMIDE NEB SOLN 0.02% 2.5 ML VIAL INH PRN (17:45)
[2017-11-13] MEDS ORDERED: LEVALBUTEROL 1.25MG/0.5ML NEB INH PRN (17:45)
--- NOTE | 2017-11-13 17:56 | History and Physical ---
History & Physical Date & Time of Service: Nov 13, 2017 at 17:30 Chief Complaint: Sob/Afib Primary Care Physician: Merlin Barrios M.D. History of Present Illness Source: patient This is a 71 year old white female with a PMH of Paroxysmal Atrial Flutter s/p ablation on 06/19/[address] Wilson, HTN, HLD, COPD, Tobacco Abuse, Anxiety, Depression, Left Ventricular Diastolic Dysfunction who presents to [facility] from outpatient cardiology office secondary to Bradycardia. Yesterday around 1 PM while resting in seated position she had episode lasted 1 hour with symptoms including diaphoresis, chills, feeling faint , pain in left arm, shortness of breath, palpitation. Nothing made symptoms better or worse. Symptoms resolved on their own. She tried to eat food, thought she was hungry but this did not help. Never had anything like this in the past. She denies syncope. She followed up in outpatient cardiology office today secondary to symptoms in which it was noted she had sinus bradycardia with possible junctional rhythm therefore referred to ED for further evaluation. Currently she feels, "fine." Denies fever, chills, sweats, lightheadedness, dizziness, chest pain, shortness of breath, wheezing, palpitations, nausea, vomiting, diarrhea. She has had no change in bowel or bladder habits. Appetite is normal. She is status post atrial flutter ablation on 06/19/17. She was treated with metoprolol, diltiazem, Eliquis for her atrial flutter. In July in follow-up with Dr. Wilson it was recommended to stop metoprolol secondary to bradycardia. When she returned to outpatient cardiology October 18, seen by Marisabel Palma PA-C it was recommended to stop diltiazem secondary to bradycardia. She had a ZIO monitor which did not reveal any A. fib/atrial flutter. Patient admits that she stopped her diltiazem for approximately 4-5 days; however restarted it for unknown reason. In the ED lab work was relatively unremarkable, troponin negative, BNP 347, TSH 1.52, chest x- ray cardiomegaly, atelectasis. EKG revealed junctional rhythm with bradycardia 53 bpm. Past Medical/Surgical History Medical Problems: (1) Anxiety Status: Chronic (2) Atrial flutter Permanent Comment: s/p Ablation 06/19/[address] Wilson Status: Chronic (3) COPD (chronic obstructive pulmonary disease) Status: Chronic (4) Depressive Disorder Nec Status: Chronic (5) Esophageal Reflux Status: Chronic (6) Hyperlipidemia Nec/Nos Status: Chronic (7) Hypertension Status: Chronic (8) Left ventricular diastolic dysfunction Permanent Comment: last echo 08/21/17 EF 55-59% with left ventricular DD Status: Chronic (9) Tobacco abuse Status: Chronic Surgical Problems: (1) History of breast biopsy Status: Chronic (2) History of discectomy Status: Chronic (3) History of laparoscopy Permanent Comment: endometriosis Status: Chronic (4) Status post ablation of atrial flutter Status: Chronic Family History Diabetes mellitus BROTHER SISTER FHx: thyroid disease MOTHER, Age:92 SISTER SISTER Social History Smoking Status: Current Every Day Smoker (50 pack year history) Smokeless Tobacco Use: No Alcohol Use: rare, 1-2x per year Drug Use: none Marital Status: single Housing status: lives alone Immunizations History of Influenza Vaccine: Yes Influenza Vaccine Date: Dec 07, 2015 History of Tetanus Vaccine?: Yes Tetanus Immunization Date: Jan 15, 2008 History of Pneumococcal: Yes Pneumococcal Date: Nov 07, 2016 History of Hepatitis B Vaccine: Unknown Allergies Coded Allergies: No Known Allergies (Verified , 11/13/17) Home Medications Scheduled Alprazolam (Xanax), 1.5 MG PO HS Apixaban (Eliquis), 5 MG PO BID Ascorbic Acid (Ascorbic Acid), 500 MG PO DAILY Buspirone Hcl (Buspirone Hcl), 7.5 MG PO BID Calcium Carbonate-Vitamin D W/ (Caltrate 600 Plus), 1 TAB PO DAILY Cholecalciferol (Vitamin D3), 1 TAB PO DAILY Cyanocobalamin (Vitamin B-12), 1,000 MCG PO DAILY Ibuprofen (Advil), 200 MG PO HS Lisinopril (Zestril), 10 MG PO QAM Paroxetine (Paroxetine HCl), 2 TAB PO DAILY Rosuvastatin Calcium (Crestor), 10 MG PO DAILY Sumatriptan Succinate (Imitrex), 100 MG PO PRN Review of Systems As noted per HPI, 10 systems reviewed and negative unless noted above. Physical Exam Vital Signs Date Time Temp Pulse Resp B/P (MAP) Pulse Ox O2 Delivery O2 Flow Rate FiO2 8/21/18 16:31 177/92 11/13/17 16:27 48 17 92 11/13/17 16:01 165/83 11/13/17 15:58 45 16 91 Room Air 11/13/17 15:32 136/94 11/13/17 15:28 48 17 93 Room Air 11/13/17 15:19 95 Room Air 11/13/17 15:08 53 15 132/90 93 Room Air 11/13/17 15:05 48 11/13/17 14:57 37.1 49 149/76 95 Room Air 11/13/17 14:57 95 Room Air General Appearance: WD/WN (F, lying in bed), no apparent distress, + obese Head: normocephalic, atraumatic Eyes: normal inspection, PERRL, sclerae normal ENT: normal ENT inspection, + pertinent finding (Mucous membranes moist) Neck: supple, no adenopathy, thyroid normal, no JVD Respiratory/Chest: chest non-tender, lungs clear, normal breath sounds, no respiratory distress, no accessory muscle use, + wheezing (expiratory wheezing throughout, not cleared with cough, ) Cardiovascular: no edema, no gallop, no JVD, no murmur, normal peripheral pulses, + bradycardia Abdomen/GI: normal bowel sounds, non tender, soft, + distended (secondary to obesity) Back: normal inspection, no muscle spasm, normal range of motion Extremities/Musculoskelatal: normal inspection, no calf tenderness, normal capillary refill, no pedal edema, normal range of motion 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, alert, normal mood/affect, oriented x 3 Skin: normal color, no rash Lymphatic: no adenopathy Diagnostics Laboratory Results Results Past 24 Hours Test 11/13/17 15:35 11/13/17 16:10 Range/Units White Blood Count 7.58 4.8-10.8 K/uL Red Blood Count 4.90 4.2-5.4 M/uL Hemoglobin 15.9 12.0-16.0 g/dL Hematocrit 47.0 37-47 % Mean Corpuscular Volume 95.9 80-100 fL Mean Corpuscular Hemoglobin 32.4 25-34 pg Mean Corpuscular Hemoglobin Concent 33.8 32-36 g/dl Platelet Count 226 130-400 K/uL Mean Platelet Volume 10.0 7.4-10.4 fL Neutrophils (%) (Auto) 50.2 % Lymphocytes (%) (Auto) 32.1 % Monocytes (%) (Auto) 7.3 % Eosinophils (%) (Auto) 9.9 % Basophils (%) (Auto) 0.4 % Neutrophils # (Auto) 3.81 1.4-6.5 K/uL Lymphocytes # (Auto) 2.43 1.2-3.4 K/uL Monocytes # (Auto) 0.55 0.11-0.59 K/uL Eosinophils # (Auto) 0.75 0-0.5 K/uL Basophils # (Auto) 0.03 0-0.2 K/uL RDW Standard Deviation 50.1 36.4-46.3 fL RDW Coefficient of Variation 14.2 11.5-14.5 % Immature Granulocyte % (Auto) 0.1 % Immature Granulocyte # (Auto) 0.01 0.00-0.02 K/uL Prothrombin Time 10.7 9.0-12.0 SECONDS Prothromb Time International Ratio 1.0 0.9-1.1 Activated Partial Thromboplast Time 28.8 21.0-31.0 SECONDS Partial Thromboplastin Ratio 1.1 Sodium Level 141 136-145 mmol/L Potassium Level 4.3 3.5-5.1 mmol/L Chloride Level 107 98-107 mmol/L Carbon Dioxide Level 26 21-32 mmol/L Anion Gap 8.0 3-11 mmol/L Blood Urea Nitrogen 21 7-18 mg/dl Creatinine 0.65 0.60-1.20 mg/dl Est Creatinine Clear Calc Drug Dose 97.5 ml/min Estimated GFR () 103.5 Estimated GFR (Non- 89.3 BUN/Creatinine Ratio 31.6 10-20 Random Glucose 90 70-99 mg/dl Calcium Level 8.8 8.5-10.1 mg/dl Phosphorus Level 4.4 2.5-4.9 mg/dl Magnesium Level 2.2 1.8-2.4 mg/dl Total Bilirubin 0.2 0.2-1 mg/dl Aspartate Amino Transf (AST/SGOT) 41 15-37 U/L Alanine Aminotransferase (ALT/SGPT) 51 12-78 U/L Alkaline Phosphatase 71 45-117 U/L Troponin I < 0.015 0-0.045 ng/ml Pro-B-Type Natriuretic Peptide 347 0-900 pg/ml Total Protein 6.6 6.4-8.2 gm/dl Albumin 3.2 3.4-5.0 gm/dl Globulin 3.4 2.5-4.0 gm/dl Albumin/Globulin Ratio 0.9 0.9-2 Thyroid Stimulating Hormone (TSH) 1.520 0.300-4.500 uIu/ml Urine Color YELLOW Urine Appearance CLEAR CLEAR Urine pH 6.0 4.5-7.5 Urine Specific [place] 1.020 1.000-1.030 Urine Protein NEG NEG Urine Glucose (UA) NEG NEG Urine Ketones NEG NEG Urine Occult Blood NEG NEG Urine Nitrite NEG NEG Urine Bilirubin NEG NEG Urine Urobilinogen NEG NEG Urine Leukocyte Esterase SMALL NEG Urine WBC (Auto) 5-10 0-5 /hpf Urine RBC (Auto) 0-4 0-4 /hpf Urine Hyaline Casts (Auto) 1-5 0-5 /lpf Urine Epithelial Cells (Auto) 5-10 0-5 /lpf Urine Bacteria (Auto) NEG NEG Diagnostic Radiology CXR: cardiomegaly, b/l atelectasis EKG 53bpm with junctional rhythm, QTC 416 Impression Assessment and Plan This is a 71 year old white female with a PMH of Paroxysmal Atrial Flutter s/p ablation on 06/19/[address] Wilson, HTN, HLD, COPD, Tobacco Abuse, Anxiety, Depression, Left Ventricular Diastolic Dysfunction who presents to [facility] from outpatient cardiology office secondary to Bradycardia. She is status post atrial flutter ablation on 06/19/17. She was treated with metoprolol, diltiazem, Eliquis for her atrial flutter. In July in follow-up with Dr. Wilson it was recommended to stop metoprolol secondary to bradycardia. When she returned to outpatient cardiology October 18, seen by Marisabel Palma PA-C it was recommended to stop diltiazem secondary to bradycardia. She had a ZIO monitor which did not reveal any A. fib/atrial flutter. Patient admits that she stopped her diltiazem for approximately 4-5 days; however restarted it for unknown reason. In the ED lab work was relatively unremarkable, troponin negative, BNP 347, TSH 1.52, chest x-ray cardiomegaly, atelectasis. EKG revealed junctional rhythm with bradycardia 53 bpm. BRADYCARDIA WITH JUNCTIONAL RHYTHM -admit to telemetry under observation -Repeat ECG in a.m. -N.p.o. after midnight -Resting echo in a.m. -Cardiology consulted, spoke with Dr. Boles -Avoid BB and CCB. Diltiazem discontinued -Maintain adequate blood pressure -CBC, BMP in a.m. PAROXYSMAL ATRIAL FLUTTER -Continue Eliquis -Stop diltiazem -Monitor on telemetry HTN -bp currently on high side, monitor -continue lisinopril -monitor for hypotension HLD -continue statin therapy LEFT VENTRICULAR DIASTOLIC DYSFUNCTION -continue Lisinopril -Resting Echo in a.m. COPD -recommend tobacco cessation -add levalbuterol/ipratropium q6hr prn for SOB/Wheezing -Patient most likely could benefit from ICS/ TOBACCO ABUSE -nicotine patch 21mg -recommend tobacco cessation ANXIETY -continue buspar, xanax DEPRESSION -continue paxil, mood stable DISPOSITION -discharge to home when medical able ADDENDUM: This is a 71 year old female with paroxysmal atrial flutter s/p ablation on long -term anticoagulation, HTN, HLD, tobacco use disorder, COPD, depression/anxiety - presents with dizziness, sweatiness, shortness of breath, etc. Currently patient is not having any symptoms. Was sent by cardiology for stress test. On exam: wheezing diffusely, bradycardic Plan: hold CCB, B-micky NPO after midnight resting echo, possible stress echo nebs for her wheezing counseled on smoking cessation Resuscitation Status DNR Spoke with patient and wishes to be DNR VTE Prophylaxis Will order VTE Prophylaxis: Yes (We will continue eliquis)
[2017-11-13] MEDS ORDERED: PARO30TA4 PO (18:01)
[2017-11-13] MEDS ORDERED: IV FLUIDS COMPLETED PRN (18:30)
[2017-11-13] MEDS ORDERED: ENALAPRILAT IV 1.25 MG in DEXTROSE 5% 25ML 25 ML IV STA (19:55)
[2017-11-13] MEDS: BusPIRone 15 MG TAB PO SCH (20:21)
[2017-11-13] MEDS: APIXABAN 5 MG TAB PO SCH (20:23)
[2017-11-13] MEDS ORDERED: IBUPROFEN 200 MG TAB PO SCH (21:00)
[2017-11-13] MEDS ORDERED: IPRATROPIUM BROMIDE NEB SOLN 0.02% 2.5 ML VIAL INH SCH (21:00)
[2017-11-13] MEDS ORDERED: ALPRAZOLAM 0.5 MG TAB PO SCH (21:00)
[2017-11-13] MEDS ORDERED: LEVALBUTEROL 1.25MG/0.5ML NEB INH SCH (21:00)
[2017-11-13] MEDS ORDERED: HydrALAZINE 10 MG TAB PO PRN (23:30)
[2017-11-14 03:01] VITALS: BP_SYST 109; BP_SYST 148; BP_DIAS 67; BP_DIAS 75; PULSE 68; TEMP 36.7; O2SAT 91
[2017-11-14 06:57] VITALS: BP 152/92; PULSE 68; TEMP 36.8; O2SAT 90
[2017-11-14 07:08] LABS: HEMATOCRIT 47.8 % (37-47); MEAN CELL VOLUME 96.8 fL (80-100); MEAN CORPUSCULAR HEMOGLOBIN 32.4 pg (25-34); MEAN CORPUSCULAR HGB CONC 33.5 g/dl (32-36); MEAN PLATELET VOLUME 10.2 fL (7.4-10.4); PLATELET COUNT 230 K/uL (130-400); RED CELL DISTRIBUTION WIDTH CV 14.2 % (11.5-14.5); RED CELL DISTRIBUTION WIDTH SD 50.7 fL (36.4-46.3); WHITE BLOOD COUNT 7.02 K/uL (4.8-10.8)
[2017-11-14 07:23] LABS: CALCIUM 8.5 mg/dl (8.5-10.1); CREATININE 0.69 mg/dl (0.60-1.20); POTASSIUM 3.9 mmol/L (3.5-5.1)
[2017-11-14 08:00] VITALS: PULSE 64; O2SAT 90
[2017-11-14] MEDS: APIXABAN 5 MG TAB PO SCH (08:04)
[2017-11-14] MEDS: BusPIRone 15 MG TAB PO SCH (08:05)
--- NOTE | 2017-11-14 08:42 | ECHOCARDIOGRAM REPORT ---
*NOTICE TO RECEIVING [employer] This information is strictly Confidential and protected under [place] law. [place] law prohibits you from making any further disclosure of this information unless further disclosure is expressly permitted by the written consent of the person to whom it pertains or is authorized by law. A general authorization for the release of medical or other information is not sufficient for this purpose. Hospital accepts no responsibility if the information is made available to any other person, INCLUDING THE PATIENT. Interpretation Summary * Name: PACO JOHNSON Study Date: 11/14/2017 06:37 AM BP: 152/92 mmHg * Patient Location: C.2T\S\S243\S\1 HR: 57 * : 1945 (M/d/yyyy) Gender: Female Height: 68 in * Age: 71 yrs Ethnicity: CA Weight: 217 lb * Ordering Physician: Ayse White * Referring Physician: Self, Referred * Performed By: Marlene Collins RDCS * * Reason For Study: BRADYCARDIA * BSA: 2.1 m2 * -- Conclusions -- * No significant change compared to previous study of 08/21/17. * Normal LV chamber size with mild concentric LVH. * Normal LV systolic function, EF 60-65%. * No segmental left ventricular wall motion abnormalities are noted. * Grade I diastolic dysfunction. * No significant valvular pathology. Procedure Details * A contrast injection of Definity was performed to improve assessment of LV function. * Contrast was injected into an intravenous site in the right arm. * One vial of Definity ultrasound contrast was diluted in normal saline to a total volume of 10 ml. A total of '2' ml of solution was administered during imaging. * Lot # [id number] of Definity utilized for procedure. * Expiration date 1 OCT 11. * The attending nurse who injected the contrast agent was ZULEMA SAWYER RN. Left Ventricle * The left ventricle is normal in size. * There is mild concentric left ventricular hypertrophy. * Ejection Fraction = 60-65%. * Left ventricular systolic function is normal. * No segmental left ventricular wall motion abnormalities are noted. * The left ventricular wall motion is normal. Right Ventricle * The right ventricular cavity size is normal (basal dimension <4.2 cm in right ventricular apical 4-chamber view). * The right ventricular systolic function is normal as assessed by tricuspid annular plane systolic excursion (TAPSE) (normal >1.5 cm). Atria * The left atrial size is normal. * Right atrial size is normal. * No ASD detected; PFO is not assessed. Mitral Valve * The mitral valve is normal in structure and function. Tricuspid Valve * The tricuspid valve is normal in structure and function. Aortic Valve * The aortic valve is normal in structure and function. Pulmonic Valve * The pulmonary valve is not well seen, but the Doppler examination is normal without significant regurgitation or stenosis. Great Vessels * The aortic root is normal size. Pericardium/Pleural * There is no pericardial effusion. Left Ventricular Diastolic Function * Grade I diastolic dysfunction, (abnormal relaxation pattern). MMode 2D Measurements and Calculations IVSd 1.4 cm IVSs 2.0 cm LVIDd 4.3 cm LVIDs 2.9 cm LVPWd 1.3 cm LVPWs 1.5 cm IVS/LVPW 1.1 FS 32.7 % EDV(Teich) 83.6 ml ESV(Teich) 32.3 ml EF(Teich) 61.4 % EDV(cubed) 80.2 ml ESV(cubed) 24.5 ml EF(cubed) 69.5 % % IVS thick 42.7 % % LVPW thick 18.2 % LV mass(C)d 218.4 grams LV mass(C)dI 103.2 grams/m\S\2 LV mass(C)s 199.5 grams LV mass(C)sI 94.3 grams/m\S\2 SV(Teich) 51.4 ml SI(Teich) 24.3 ml/m\S\2 SV(cubed) 55.8 ml SI(cubed) 26.3 ml/m\S\2 LVAd ap4 31.1 cm\S\2 LVLd ap4 7.9 cm EDV(MOD-sp4) 98.2 ml EDV(sp4-el) 103.8 ml LVAs ap4 17.2 cm\S\2 LVLs ap4 6.4 cm ESV(MOD-sp4) 39.7 ml ESV(sp4-el) 39.2 ml EF(MOD-sp4) 59.6 % EF(sp4-el) 62.2 % LVAd ap2 29.4 cm\S\2 LVLd ap2 7.5 cm EDV(MOD-sp2) 92.7 ml EDV(sp2-el) 97.3 ml LVAs ap2 15.9 cm\S\2 LVLs ap2 6.4 cm ESV(MOD-sp2) 33.7 ml ESV(sp2-el) 33.5 ml EF(MOD-sp2) 63.6 % EF(sp2-el) 65.6 % LVLd %diff -5.19 % EDV(MOD-bp) 97.8 ml LVLs %diff 0.28 % ESV(MOD-bp) 36.7 ml EF(MOD-bp) 62.5 % SV(MOD-sp4) 58.5 ml SI(MOD-sp4) 27.6 ml/m\S\2 SV(MOD-sp2) 58.9 ml SI(MOD-sp2) 27.9 ml/m\S\2 SV(MOD-bp) 61.1 ml SI(MOD-bp) 28.9 ml/m\S\2 SV(sp4-el) 64.6 ml SI(sp4-el) 30.5 ml/m\S\2 SV(sp2-el) 63.8 ml SI(sp2-el) 30.2 ml/m\S\2 Doppler Measurements and Calculations MV E max montrell 57.4 cm/sec MV A max montrell 65.1 cm/sec MV E/A 0.88 MV dec time 0.37 sec Ao V2 max 138.0 cm/sec Ao max PG 7.6 mmHg Ao max PG (full) 2.1 mmHg LV V1 max PG 5.5 mmHg LV V1 max 117.7 cm/sec
[2017-11-14] MEDS ORDERED: CYANOCOBALAMIN 500 MCG TAB (VIT B-12) PO SCH (09:00)
[2017-11-14] MEDS ORDERED: ASCORBIC ACID 500 MG TAB PO SCH (09:00)
[2017-11-14] MEDS ORDERED: LISINOPRIL 10 MG TAB PO SCH (09:00)
[2017-11-14] MEDS ORDERED: CALCIUM 600MG + VIT D 400 IU TAB PO SCH (09:00)
[2017-11-14] MEDS ORDERED: NICOTINE 21 MG/24 HR TDSY TD SCH (09:00)
[2017-11-14] MEDS ORDERED: CHOLECALCIFEROL 1000 INTER.UNIT TAB PO SCH (09:00)
[2017-11-14] MEDS ORDERED: PAROXETINE 30 MG TAB PO SCH (09:00)
[2017-11-14] MEDS ORDERED: ROSUVASTATIN CALCIUM 10 MG TAB PO SCH (09:00)
--- NOTE | 2017-11-14 11:41 | Progress Note ---
Medicine Progress Note Date & Time of Visit: Nov 14, 2017 at 11:33. Subjective seen resting in bed, comfortable in good spirits states she feels better denies dizziness, chest pain, palpitations, dyspnea no other symptoms Objective Last 8 Hrs Date Time Temp Pulse Resp B/P (MAP) Pulse Ox O2 Delivery O2 Flow Rate FiO2 11/14/17 08:00 90 Room Air 11/14/17 08:00 64 11/14/17 06:57 36.8 68 18 152/92 (112) 90 Room Air Physical Exam: General- oriented x 3 not in distress, speaks in sentences with no effort Head- atraumatic Eyes- PERRL, EOMI, anicteric ENT- oropharynx clear Neck- supple, no JVD, no adenopathy, no thyromegaly Lungs- clear breath sounds bilaterally, no rales/wheezes Heart- regular rhythm; no murmur, normal rate Abdomen- normal bowel sounds, soft, nontender Extremities- no pretibial edema, no calf tenderness Neuro- alert, oriented x 3; no gross focal deficits Skin- warm & dry Laboratory Results: Last 24 Hours Test 11/13/17 15:35 11/13/17 16:10 11/14/17 06:24 White Blood Count 7.58 K/uL 7.02 K/uL Red Blood Count 4.90 M/uL 4.94 M/uL Hemoglobin 15.9 g/dL 16.0 g/dL Hematocrit 47.0 % 47.8 % Mean Corpuscular Volume 95.9 fL 96.8 fL Mean Corpuscular Hemoglobin 32.4 pg 32.4 pg Mean Corpuscular Hemoglobin Concent 33.8 g/dl 33.5 g/dl Platelet Count 226 K/uL 230 K/uL Mean Platelet Volume 10.0 fL 10.2 fL Neutrophils (%) (Auto) 50.2 % Lymphocytes (%) (Auto) 32.1 % Monocytes (%) (Auto) 7.3 % Eosinophils (%) (Auto) 9.9 % Basophils (%) (Auto) 0.4 % Neutrophils # (Auto) 3.81 K/uL Lymphocytes # (Auto) 2.43 K/uL Monocytes # (Auto) 0.55 K/uL Eosinophils # (Auto) 0.75 K/uL Basophils # (Auto) 0.03 K/uL RDW Standard Deviation 50.1 fL 50.7 fL RDW Coefficient of Variation 14.2 % 14.2 % Immature Granulocyte % (Auto) 0.1 % Immature Granulocyte # (Auto) 0.01 K/uL Prothrombin Time 10.7 SECONDS Prothromb Time International Ratio 1.0 Activated Partial Thromboplast Time 28.8 SECONDS Partial Thromboplastin Ratio 1.1 Sodium Level 141 mmol/L 142 mmol/L Potassium Level 4.3 mmol/L 3.9 mmol/L Chloride Level 107 mmol/L 106 mmol/L Carbon Dioxide Level 26 mmol/L 29 mmol/L Anion Gap 8.0 mmol/L 8.0 mmol/L Blood Urea Nitrogen 21 mg/dl 17 mg/dl Creatinine 0.65 mg/dl 0.69 mg/dl Est Creatinine Clear Calc Drug Dose 97.5 ml/min 91.8 ml/min Estimated GFR () 103.5 101.5 Estimated GFR (Non- 89.3 87.6 BUN/Creatinine Ratio 31.6 25.1 Random Glucose 90 mg/dl 94 mg/dl Calcium Level 8.8 mg/dl 8.5 mg/dl Phosphorus Level 4.4 mg/dl Magnesium Level 2.2 mg/dl Total Bilirubin 0.2 mg/dl Aspartate Amino Transf (AST/SGOT) 41 U/L Alanine Aminotransferase (ALT/SGPT) 51 U/L Alkaline Phosphatase 71 U/L Troponin I < 0.015 ng/ml Pro-B-Type Natriuretic Peptide 347 pg/ml Total Protein 6.6 gm/dl Albumin 3.2 gm/dl Globulin 3.4 gm/dl Albumin/Globulin Ratio 0.9 Thyroid Stimulating Hormone (TSH) 1.520 uIu/ml Urine Color YELLOW Urine Appearance CLEAR Urine pH 6.0 Urine Specific [place] 1.020 Urine Protein NEG Urine Glucose (UA) NEG Urine Ketones NEG Urine Occult Blood NEG Urine Nitrite NEG Urine Bilirubin NEG Urine Urobilinogen NEG Urine Leukocyte Esterase SMALL Urine WBC (Auto) 5-10 /hpf Urine RBC (Auto) 0-4 /hpf Urine Hyaline Casts (Auto) 1-5 /lpf Urine Epithelial Cells (Auto) 5-10 /lpf Urine Bacteria (Auto) NEG Assessment & Plan This is a 71 year old white female with a PMH of Paroxysmal Atrial Flutter s/p ablation on 06/19/[address] Wilson, HTN, HLD, COPD, Tobacco Abuse, Anxiety, Depression, Left Ventricular Diastolic Dysfunction who presents to [facility] from outpatient cardiology office secondary to Bradycardia. She is status post atrial flutter ablation on 06/19/17. She was treated with metoprolol, diltiazem, Eliquis for her atrial flutter. In July in follow-up with Dr. Wilson it was recommended to stop metoprolol secondary to bradycardia. When she returned to outpatient cardiology October 18, seen by Marisabel Palma PA-C it was recommended to stop diltiazem secondary to bradycardia. She had a ZIO monitor which did not reveal any A. fib/atrial flutter. Patient admits that she stopped her diltiazem for approximately 4-5 days; however restarted it for unknown reason. In the ED lab work was relatively unremarkable, troponin negative, BNP 347, TSH 1.52, chest x-ray cardiomegaly, atelectasis. EKG revealed junctional rhythm with bradycardia 53 bpm. BRADYCARDIA SECONDARY TO DILTIAZEM - patient observed in Tele overnight HR improved from 40s to 60s - Echo: * No significant change compared to previous study of 08/21/17. * Normal LV chamber size with mild concentric LVH. * Normal LV systolic function, EF 60-65%. * No segmental left ventricular wall motion abnormalities are noted. * Grade I diastolic dysfunction. * No significant valvular pathology. - Cardiology consulted Dr. Boles no other cardiac testing at this time - discussed with and emphasized with patient that she is not to take Diltiazem anymore patient verbalized understanding and agreement - cleared for discharge by Dr. Boles PAROXYSMAL ATRIAL FLUTTER -Continue Eliquis HTN -continue lisinopril HLD -continue statin therapy LEFT VENTRICULAR DIASTOLIC DYSFUNCTION - patient is euvolemic COPD -recommend tobacco cessation - not in exacerbation TOBACCO ABUSE -nicotine patch 21mg -recommend tobacco cessation ANXIETY -continue buspar, xanax DEPRESSION -continue paxil, mood stable DISPOSITION d/c home ff up with PCP in 3-5 days, details in d/c instructions ff up with Cardiology as scheduled Current Inpatient Medications: Current Inpatient Medications Medications (Trade) Dose Ordered Sig/Kasie Route Start Time Stop Time Status Last Admin Dose Admin Acetaminophen (Tylenol Tab) 650 mg Q4H PRN PO 11/13/17 17:15 12/13/17 17:14 Apixaban (Eliquis) 5 mg BID PO 11/13/17 21:00 12/13/17 20:59 11/14/17 08:04 5 MG Ascorbic Acid (Vitamin C Tab) 500 mg DAILY PO 11/14/17 09:00 12/14/17 08:59 11/14/17 08:04 500 MG Calcium/Vitamin D (Caltrate Plus Tab) 1 tab DAILY PO 11/14/17 09:00 12/14/17 08:59 11/14/17 08:05 1 TAB Cholecalciferol (Vitamin D Tab) 1,000 inter.unit DAILY PO 11/14/17 09:00 12/14/17 08:59 11/14/17 08:04 1,000 INTER.UNIT Cyanocobalamin (Vitamin B-12 Tab) 1,000 mcg DAILY PO 11/14/17 09:00 12/14/17 08:59 11/14/17 08:04 1,000 MCG Ibuprofen (Advil Tab) 200 mg HS PO 11/13/17 21:00 12/13/17 20:59 11/13/17 20:21 200 MG Lisinopril (Zestril Tab) 10 mg QAM PO 11/14/17 09:00 12/14/17 08:59 11/14/17 08:05 10 MG Buspirone HCl (BusPAR TAB) 7.5 mg BID PO 11/13/17 21:00 12/13/17 20:59 11/14/17 08:05 7.5 MG Nicotine (Nicoderm Cq 21MG Patch) 1 patch QAM TD 11/14/17 09:00 12/14/17 08:59 11/14/17 08:06 1 PATCH Miscellaneous (Remove Nicoderm Patch) 1 ea HS N/A 11/13/17 21:00 12/13/17 20:59 Ipratropium [place] (Atrovent 0.02% 0.5MG/2.5ML Neb) 0.5 mg Q6R PRN INH 11/13/17 17:45 12/13/17 17:44 Levalbuterol (Xopenex 1.25MG/ 0.5ML Neb) 1.25 mg Q6R PRN INH 11/13/17 17:45 12/13/17 17:44 Alprazolam (Xanax Tab) 1.5 mg HS PO 11/13/17 21:00 12/13/17 20:59 11/13/17 23:47 1.5 MG Paroxetine HCl (pAXil) 60 mg DAILY PO 11/14/17 09:00 12/14/17 08:59 11/14/17 08:05 60 MG Miscellaneous (Iv Fluids Completed) 1 ea PRN PRN N/A 11/13/17 18:30 11/13/18 18:29 Hydralazine HCl (Apresoline Tab) 10 mg QID PRN PO 11/13/17 23:30 12/13/17 23:29 11/14/17 00:10 10 MG Rosuvastatin Calcium (Crestor Tab) 10 mg HS PO 11/15/17 21:00 12/14/17 08:59
--- NOTE | 2017-11-14 11:53 | Discharge Instructions ---
Discharge Instructions Date of Service Nov 14, 2017. Admission Reason for Admission: Bradycardia Discharge Discharge Diagnosis / Problem: SLOW HEART RATE SECONDARY TO DILTIAZEM Discharge Goals Goal(s): Diagnostic testing, Therapeutic intervention Activity Recommendations Activity Limitations: as noted below (RESUME ACTIVITY GRADUALLY TOLERATED) Lifting Limitations: until after follow-up appointment Exercise/Sports Limitations: until after follow-up appointment Driving or Machine Use: NO DRIVING UNTIL RE-EVALUATED BY PRIMARY CARE PHYSICIAN . Instructions / Follow-Up Instructions / Follow-Up DO NOT TAKE DILTIAZEM OR METOPROLOL UNLESS ADVISED BY YOUR DOCTOR. PLASE BE CAREFUL WITH TAKING YOUR MEDICATIONS AND FOLLOW INSTRUCTIONS CAREFULLY. CALL PRIMARY CARE PHYSICIAN OR RETURN TO ER IMMEDIATELY IF WITH RECURRENCE OF SYMPTOMS, DIZZINESS, WEAKNESS, PALPITATIONS, NAUSEA, CHEST PAIN, SHORTNESS OF BREATH. FOLLOW UP WITH DR. LOVE ON SUNDAY, NOVEMBER 21, 2017 AT 10:45AM. FOLLOW UP WITH PLASTIC EXTRUDING MACHINE OPERATOR SCHEDULED. Current Hospital Diet Patient's current hospital diet: AHA Diet (Heart Healthy) Discharge Diet Recommended Diet: AHA Diet (Heart Healthy) Procedures Procedures Performed: ECHOCARDIOGRAM Pending Studies Studies pending at discharge: no Medical Emergencies . Who to Call and When: Medical Emergencies: If at any time you feel your situation is an emergency, please call 911 immediately. . Non-Emergent Contact Non-Emergency issues call your: Primary Care Provider, Manager Diesel Call Non-Emergent contact if: you have a fever, you have any medication questions . . "Provider Documentation" section prepared by Killian Fontana. .
[2017-11-14 11:55] VITALS: BP 143/82; PULSE 73; TEMP 37; O2SAT 90
[2017-11-14 12:00] VITALS: O2SAT 90
--- NOTE | 2017-11-14 12:14 | CARDIOLOGY CONSULTATION ---
DATE OF CONSULTATION: 11/13/2017 CONSULTATION REQUESTED BY: Ayse White PA-C REASON FOR CONSULTATION: Bradycardia with junctional escape rhythm. HISTORY OF PRESENT ILLNESS: Ms. Wilder is a very pleasant 71-year-old woman who normally follows with Dr. Wilson and Marisabel Palma of our cardiology practice. The patient underwent aflutter ablation in June with Dr. Wilson and after performing outpatient telemetry monitoring, she was instructed to discontinue Eliquis and diltiazem. Unfortunately, there was some confusion on the patient's part and she stopped her diltiazem for 4 days, but then restarted on 11/12/2017. The patient states that she woke up and became very dizzy, developed significant diaphoresis, lightheadedness and felt very weak. She initially called into our cardiology office and was recommend she go to the Emergency Room; however, the patient states that she preferred to wait it out overnight and see how she did. Then on 11/13/2017, she walked in to [facility] cardiology office requesting to be seen. She was seen urgently by Dr. Merino. A 12-lead EKG was performed which showed sinus lashanda with competing junctional rhythm and possible AV dissociation and she was taken by EMS to [facility]. At that time, she was not sure if she was still taking the diltiazem, but was confused, but today after further thought, she realized that she has been taking it even though she was instructed not to. Now, her lightheadedness, dizziness and sweating have resolved and she feels back to normal. PAST SURGICAL HISTORY: 1. Atrial flutter ablation, June 2017. 2. Breast biopsy. 3. Foot surgery. 4. Lumbar discectomy. 5. Hernia repair. 6. Colonoscopy. 7. x2. 8. Eye surgery. MEDICAL ILLNESSES: 1. Atrial flutter, status post ablation. 2. Mild COPD. 3. History of migraines. 4. Spastic dysphonia. 5. Chronic back pain. 6. Tobacco abuse. 7. Anxiety. FAMILY HISTORY: Noncontributory. SOCIAL HISTORY: The patient is a lifelong smoker, continues to smoke. Drinks occasional alcohol. Denies any recreational drug use. She is with 2 children. She is retired. REVIEW OF SYSTEMS: As per HPI, all other review of systems reviewed and negative at this time. ALLERGIES: No known drug allergies. MEDICATIONS AN OUTPATIENT: 1. Lisinopril 10 mg daily. 2. Paxil daily. 3. Xanax daily. 4. Crestor 10 mg daily. PHYSICAL EXAMINATION: VITALS: Temperature 36.8, pulse 64, respiratory rate 12, blood pressure 152/92. GENERAL: Awake, alert, oriented x3, in no acute distress. HEENT: Normocephalic, atraumatic. Pupils equal, round, reactive to light and accommodation. Extraocular muscles intact. Anicteric sclerae. Moist mucous membranes. NECK: No JVD, no bruit. CARDIOVASCULAR: Regular. Positive S4. Normal S1 and S2. No S3. No murmurs or rubs. PULMONARY: Clear to auscultation bilaterally. No rales, rhonchi, or wheezing. ABDOMEN: Bowel sounds x4, soft. No rebound, guarding, tenderness. No organomegaly. EXTREMITIES: No clubbing, cyanosis or edema. +2 pedal pulses bilaterally. SKIN: Warm and dry. TEST RESULTS: A 12-lead EKG performed in the Emergency Department independently reviewed shows a junctional rhythm with retrograde conduction and occasional PVCs. Repeat EKG this a.m. shows sinus bradycardia. A 2D echocardiogram performed 11/14/2017 was read as no significant change compared to previous study of 08/21/2017, normal LV chamber size, mild concentric LVH, normal LV systolic function, EF 60-65%, no segmental left ventricular wall motion abnormalities are noted, grade 1 diastolic dysfunction, no significant valvular pathology. IMPRESSION: 1. A junctional bradycardia due to accidental medication ingestion, resolved. 2. History of atrial flutter, status post ablation. RECOMMENDATIONS: It was my pleasure to see Mrs. Wilder in consultation today. From a cardiac standpoint, it appears that her transient bradycardia is easily explained by her mistakenly taking her diltiazem and given the fact that after being without the medication for 24 hours, her heart rates are now back in the 70s. No further testing is necessary. So, it is okay to discharge the patient to home from a cardiac standpoint. She is already scheduled for followup with Dr. Prabhakar in April. I recommend she follow up as scheduled.
[2017-11-14 15:30] VITALS: BP 143/82; PULSE 73; TEMP 37; O2SAT 90
[2017-11-15] MEDS ORDERED: ROSUVASTATIN CALCIUM 10 MG TAB PO SCH (21:00)
== END 2017-11-14 16:47 | disposition home or self-care (01) ==
LOC: EDBD 14:50 → C.EDA 14:51 → C.2T 17:07 → ENRESERV 17:25
PROVIDERS: ADMIT Family Medicine; ATTEND Internal Medicine
DX: R00.1 Bradycardia, unspecified (principal); T46.1X1A Poisoning by calcium-channel blockers, accidental (unintentional), initial encounter; I48.91 Unspecified atrial fibrillation; I48.92 Unspecified atrial flutter; F41.9 Anxiety disorder, unspecified; I10 Essential (primary) hypertension; J44.9 Chronic obstructive pulmonary disease, unspecified; F17.210 Nicotine dependence, cigarettes, uncomplicated; F32.9 Major depressive disorder, single episode, unspecified; K21.9 Gastro-esophageal reflux disease without esophagitis; E78.5 Hyperlipidemia, unspecified; Z79.01 Long term (current) use of anticoagulants; Z79.899 Other long term (current) drug therapy; Z83.3 Family history of diabetes mellitus; Z82.49 Family history of ischemic heart disease and other diseases of the circulatory system; Z66 Do not resuscitate

== ENCOUNTER 2018-05-10 08:02 | Inpatient (IN) ==
[2018-05-10] MEDS ORDERED: ALBUT/IPRATROP 3MG/0.5MG NEB 3 ML VIAL NEB ONE (08:18)
[2018-05-10] MEDS ORDERED: methylPREDNISolone 125 MG/2 ML VIAL IV STA (08:18)
[2018-05-10 08:31] LABS: Basophils # (auto) 0.02 K/uL (0-0.2); Basophils % (auto) 0.2 %; Eosinophils # (auto) 0.02 K/uL (0-0.5); Eosinophils % (auto) 0.2 %; Hematocrit (blood only) 50.3 % (37-47); Hemoglobin 16.7 g/dL (12.0-16.0); Immature Granulocytes # (auto) 0.02 K/uL (0.00-0.02); Immature Granulocytes % (auto) 0.2 %; Lymphocytes # (auto) 2.31 K/uL (1.2-3.4); Mean Corpuscular Hgb Conc 33.2 g/dL (32-36); Mean Corpuscular Volume 98.4 fL (80-100); Mean Platelet Volume 9.8 fL (7.4-10.4); Monocytes # (auto) 0.87 K/uL (0.11-0.59); Monocytes % (auto) 7.9 %; Neutrophils # (auto) 7.76 K/uL (1.4-6.5); Neutrophils % (auto) 70.5 %; Platelet Count 237 K/uL (130-400); RDW Coefficient of Variation 14.3 % (11.5-14.5); RDW Standard Deviation 51.9 fL (36.4-46.3); Red Blood Count 5.11 M/uL (4.2-5.4)
[2018-05-10 08:33] LABS: iSTAT Hemoglobin 17.7 g/dl (12.0-16.0); iSTAT Ionized Calcium 1.11 mmol/l (1.12-1.32)
--- NOTE | 2018-05-10 08:36 | Emergency Department Note ---
History of Present Illness General Chief complaint: Shortness of Breath/Dyspnea Time Seen by Provider: 05/10/18 08:06 History of Present Illness 72-year-old female with a history of COPD and atrial flutter presents the ER via EMS with chief complaint of shortness of breath. The patient states that she has had cold symptoms with head congestion and cough for several days. She does not know if she has had a fever. The patient admits to severe chest tightness and not being able to breathe. The patient states that she was seen by her family doctor, Dr. Tavera and was placed on Augmentin and prednisone. She took the 2 days worth of 40 mg a day of the prednisone. She has also taken the Augmentin as directed. The patient states her symptoms continue to worsen. She normally uses 2.3 L of oxygen at night but that is not helping her at all. She also has been doing a nebulizer every evening for months. She is taking all other medications as prescribed. She did not take her medications today. Home Medications Home Medications Medication Instructions Recorded Confirmed Type albuterol sulfate [ProAir HFA] 1 inh INHALATION PRN 05/10/18 History alprazolam 1.5 mg PO QPM 05/10/18 05/10/18 History amoxicillin-pot clavulanate 1 tab PO BID 05/10/18 05/10/18 History ascorbic acid (vitamin C) [Vitamin 500 mg PO QPM 05/10/18 05/10/18 History C] aspirin 81 mg PO DAILY 05/10/18 05/10/18 History calcium carbonate-vitamin D3 1 tab PO BID 05/10/18 05/10/18 History [Caltrate 600 + D] cyanocobalamin (vitamin B-12) 1,000 mcg PO QPM 05/10/18 05/10/18 History [Vitamin B-12] ibuprofen 200 mg PO DIRECTED PRN 05/10/18 05/10/18 History lisinopril 10 mg PO QPM 05/10/18 05/10/18 History omega 2-nks-lgs-fish oil [Fish Oil] 1 cap PO QPM 05/10/18 05/10/18 History paroxetine HCl 60 mg PO HS 05/10/18 05/10/18 History prednisone 10 mg PO UD 05/10/18 05/10/18 History rosuvastatin 10 mg PO HS 05/10/18 05/10/18 History sumatriptan succinate [Imitrex] 1 dose PO DIRECTED PRN 05/10/18 05/10/18 History Allergies Allergy/AdvReac Type Severity Reaction Status Date / Time No Known Allergies Allergy Verified 05/10/18 08:32 Past Med/Surg History Medical History Hypertension (Chronic) Tobacco abuse (Chronic) COPD (chronic obstructive pulmonary disease) (Chronic) Anxiety (Chronic) Atrial flutter (Chronic) "s/p Ablation 06/19/[address] Wilson" Left ventricular diastolic dysfunction (Chronic) "last echo 08/21/17 EF 55-59% with left ventricular DD" Surgical History History of discectomy (Chronic) History of breast biopsy (Chronic) History of laparoscopy (Chronic) "endometriosis" Status post ablation of atrial flutter (Chronic) Family History Father Hypertension Brother Diabetes Social History Current Living Situation: Alone Feels Safe at Home: Yes Safety Concerns: Feels Safe At This Time Smoking Status: Current every day smoker Tobacco Type: cigarettes Cigarettes per Day: 1 PPD Do You Dip or Chew Tobacco: No Second Hand Exposure: Yes Tobacco Cessation Education Requested by Patient: No Hx Alcohol Use: Yes Alcohol type: wine Alcohol Intake Frequency: holidays/ special occasions only Hx Substance Use: No Beliefs That Will Affect Care: None Preferred Language: Algerian Communication Ability: Effective Communication Ability Comment: Inhibited only by SOB. Glass Blowing Instructor Required: No Review of Systems A total of 10 systems reviewed and were otherwise negative Physical Exam Vital Signs Vital Signs - 24 hr 05/10/18 08:09 05/10/18 08:15 05/10/18 08:17 Temperature 37.1 C Temperature Source Oral Sepsis Recent Fever Within 48 Hours No Sepsis Action Taken by Nursing No Action Required Pulse Rate 116 H Pulse Rate [Finger] Pulse Rhythm Pulse Rhythm [Finger] Pulse Strength [Finger] Respiratory Rate 36 H Respiratory Effort / Characteristics Respiratory Depth Respiratory Pattern Blood Pressure 225/144 H Blood Pressure [Left Arm] Blood Pressure Mean 171 Blood Pressure Mean [Left Arm] Blood Pressure Position [Left Arm] Pulse Oximetry 88 L 88 L 94 Oxygen Delivery Method Room Air Room Air Oxymask Oxygen Flow Rate 7 05/10/18 08:35 05/10/18 08:56 05/10/18 09:00 Temperature Temperature Source Sepsis Recent Fever Within 48 Hours Sepsis Action Taken by Nursing Pulse Rate 104 H Pulse Rate [Finger] 104 H 106 H Pulse Rhythm Regular Pulse Rhythm [Finger] Regular Pulse Strength [Finger] Respiratory Rate 31 H 20 30 H Respiratory Effort / Characteristics Spontaneous Short of Breath Respiratory Depth Respiratory Pattern Blood Pressure Blood Pressure [Left Arm] 181/105 H Blood Pressure Mean Blood Pressure Mean [Left Arm] 130 Blood Pressure Position [Left Arm] Pulse Oximetry 97 96 95 Oxygen Delivery Method Oxymask Oxymask Oxymask Oxygen Flow Rate 7 7 05/10/18 10:21 05/10/18 10:32 05/10/18 11:04 Temperature Temperature Source Sepsis Recent Fever Within 48 Hours Sepsis Action Taken by Nursing Pulse Rate Pulse Rate [Finger] 106 H Pulse Rhythm Pulse Rhythm [Finger] Regular Pulse Strength [Finger] Respiratory Rate 28 H Respiratory Effort / Characteristics Accessory Muscle Use Labored Short of Breath SOB on Exertion Respiratory Depth Shallow Respiratory Pattern Regular Blood Pressure Blood Pressure [Left Arm] 177/89 H Blood Pressure Mean Blood Pressure Mean [Left Arm] 118 Blood Pressure Position [Left Arm] Pulse Oximetry 97 Oxygen Delivery Method Oxymask Oxymask Oxymask Oxygen Flow Rate 6 6 6 05/10/18 11:19 05/10/18 12:08 05/10/18 14:05 Temperature 37.4 C Temperature Source Oral Sepsis Recent Fever Within 48 Hours Sepsis Action Taken by Nursing Pulse Rate Pulse Rate [Finger] 110 H 91 H Pulse Rhythm Pulse Rhythm [Finger] Regular Pulse Strength [Finger] Normal Respiratory Rate 20 22 Respiratory Effort / Characteristics Non-Labored Spontaneous SOB on Exertion Non-Labored Spontaneous SOB on Exertion Non-Labored Respiratory Depth Normal Normal Respiratory Pattern Regular Regular Blood Pressure Blood Pressure [Left Arm] 155/95 H Blood Pressure Mean Blood Pressure Mean [Left Arm] 115 Blood Pressure Position [Left Arm] Sitting Pulse Oximetry 95 83 L Oxygen Delivery Method Oxymask Oxymask Room Air Oxygen Flow Rate 3 3 PHYSICAL EXAM: Vital Signs were reviewed: Reviewed Nurse's notes and agree. Oxygen saturation is 88 % on room air which is low. GENERAL: 72-year-old female appears in respiratory distress MENTAL STATUS: Alert, oriented, coherent. EARS: Canals clear. TMs good light reflex, no erythema or fluid level noted. NOSE: Nasal mucosa with moderate erythema engorgement. PHARYNX: No erythema, no edema noted. No exudate noted. Airway is adequate. NECK: Supple, non-tender. No lymphadenopathy noted. LUNGS: Patient has diffuse inspiratory and expiratory wheezing bilaterally. Also rhonchi throughout both lung milner. . CARDIAC: Tachycardic at a rate of 115, normal rhythm without murmur. SKIN: No rashes noted. Course Administered Medications Azithromycin 500 mg/ Dextrose 255 mls @ 125 mls/hr IV DAILY HUSSEIN Stop: 05/17/18 10:14 Last Admin: 05/10/18 13:30 Dose: 125 mls/hr Ceftriaxone Sodium (Rocephin) 1,000 mg in 50 mls @ 100 mls/hr IV DAILY HUSSEIN Stop: 05/17/18 10:14 Last Infusion: 05/10/18 10:44 Dose: 0 mls/hr Admin: 05/10/18 10:14 Dose: 100 mls/hr Sodium Chloride (Nss 1000ml) 1,000 mls @ 80 mls/hr IV .[id number] HUSSEIN Stop: 06/09/18 10:14 Last Infusion: 05/10/18 13:31 Dose: 0 mls/hr Admin: 05/10/18 10:16 Dose: 80 mls/hr Ipratropium [place] (Atrovent 0.02% 0.5mg/2.5ml) 0.5 mg INH Q4R HUSSEIN Stop: 06/09/18 15:59 Last Admin: 05/10/18 13:55 Dose: 0.5 mg Levalbuterol HCl (Xopenex 1.25mg/0.5ml Neb) 1.25 mg INH Q4R HUSSEIN Stop: 06/09/18 15:59 Last Admin: 05/10/18 13:55 Dose: 1.25 mg Sumatriptan Succinate (Imitrex) 100 mg PO UD PRN PRN Reason: Migraine Headache Stop: 06/09/18 12:29 Last Admin: 05/10/18 13:30 Dose: 100 mg Discontinued Medications Albuterol (Duoneb) 12 ml NEB ONE ONE Stop: 05/10/18 08:19 Last Admin: 05/10/18 08:53 Dose: 12 ml Methylprednisolone (Solumedrol) 125 mg IV NOW STA Stop: 05/10/18 08:19 Last Admin: 05/10/18 08:46 Dose: 125 mg Medical Decision Making Medical Records Attestation: I reviewed the patient's medical records. Home Medications Current Medication List: was personally reviewed by me Laboratory Data Attestation: I reviewed the patient's lab results. Result diagrams: 05/10/18 08:15 05/10/18 08:15 Lab Results 05/10/18 05/10/18 05/10/18 Range/Units 08:05 08:15 08:15 WBC 11.00 H (4.8-10.8) K/uL RBC 5.11 (4.2-5.4) M/uL Hgb 16.7 H (12.0-16.0) g/dL POC Hgb (12.0-16.0) g/dl Hct 50.3 H (37-47) % POC Hct (37-47) % MCV 98.4 (80-100) fL MCH 32.7 (25-34) pg MCHC 33.2 (32-36) g/dL RDW Std Deviation 51.9 H (36.4-46.3) fL RDW Coeff of Bryan 14.3 (11.5-14.5) % Plt Count 237 (130-400) K/uL MPV 9.8 (7.4-10.4) fL Immature Gran % (Auto) 0.2 % Neut % (Auto) 70.5 % Lymph % (Auto) 21.0 % Mora % (Auto) 7.9 % Eos % (Auto) 0.2 % Baso % (Auto) 0.2 % Immature Gran # (Auto) 0.02 (0.00-0.02) K/uL Neut # (Auto) 7.76 H (1.4-6.5) K/uL Lymph # (Auto) 2.31 (1.2-3.4) K/uL Mora # (Auto) 0.87 H (0.11-0.59) K/uL Eos # (Auto) 0.02 (0-0.5) K/uL Baso # (Auto) 0.02 (0-0.2) K/uL PT (9.0-12.0) Seconds INR (0.9-1.1) ABG pH (7.35-7.45) ABG pCO2 (35-46) mmHg ABG pO2 (80-95) mm/Hg ABG HCO3 (19-24) mmol/L ABG O2 Saturation (90-95) % ABG Base Excess (-9-1.8) mEq/L Scotty Test (Pos) Barometric Pressure mm/Hg Oxygen Given POC Sodium (135-144) mEq/L Sodium 140 (136-145) mmol/L POC Potassium (3.3-5.0) mEq/L Potassium 3.6 (3.5-5.1) mmol/L POC Chloride (101-112) mEq/L Chloride 104 (98-107) mmol/L Carbon Dioxide 31 (21-32) mmol/L POC Total CO2 (24-31) mEq/l Anion Gap 5.0 (3-11) POC Anion Gap (16-25) mmol/L POC BUN (7-18) mg/dl BUN 15 (7-18) mg/dl Creatinine 0.70 (0.6-1.2) mg/dl POC Creatinine (0.6-1.3) mg/dl Est Cr Clr Drug Dosing 90.3 ml/min Est GFR ( Amer) 100.3 Est GFR (Non-Af Amer) 86.6 BUN/Creatinine Ratio 21.2 H (10-20) Glucose 145 H (70-99) mg/dl POC Glucose (other) (70-99) mg/dl POC Lactic Acid Issac (0.90-1.70) mmol/L Calcium 8.6 (8.5-10.1) mg/dl POC Ioniz Calcium Eriberto (1.12-1.32) mmol/l Total Bilirubin 0.5 (0.2-1) mg/dl AST 33 (15-37) U/L ALT 40 (12-78) U/L Alkaline Phosphatase 70 (45-117) U/L Troponin I (0-0.045) ng/ml Total Protein 7.8 (6.4-8.2) gm/dl Albumin 3.7 (3.4-5.0) gm/dl Globulin 4.1 H (2.5-4.0) gm/dl Albumin/Globulin Ratio 0.9 (0.9-2) Lipase 79 (73-393) U/L Urine Color Yellow Urine Appearance Clear (Clear) Urine pH 7.0 (4.5-7.5) Ur Specific [place] 1.017 (1.000-1.030) Urine Protein 4+ H (Negative) Urine Glucose (UA) Trace H (Negative) Urine Ketones Negative (Negative) Urine Blood Trace H (Negative) Urine Nitrite Negative (Negative) Urine Bilirubin Negative (Negative) Urine Urobilinogen Negative (Negative) Ur Leukocyte Esterase Negative (Negative) Urine WBC (Auto) 1-5 (0-5) /hpf Urine RBC (Auto) 0-4 (0-4) /hpf U Hyaline Cast (Auto) 1-5 (0-5) /lpf U Epithel Cells (Auto) >30 H (0-5) /lpf Urine Bacteria (Auto) Negative (Negative) Ur Renal Epithelial Cell Not Reportable Influenza Type A Ag (Neg) Influenza Type B Ag (Neg) 05/10/18 05/10/18 05/10/18 Range/Units 08:15 08:15 08:19 WBC (4.8-10.8) K/uL RBC (4.2-5.4) M/uL Hgb (12.0-16.0) g/dL POC Hgb 17.7 H (12.0-16.0) g/dl Hct (37-47) % POC Hct 52 H (37-47) % MCV (80-100) fL MCH (25-34) pg MCHC (32-36) g/dL RDW Std Deviation (36.4-46.3) fL RDW Coeff of Bryan (11.5-14.5) % Plt Count (130-400) K/uL MPV (7.4-10.4) fL Immature Gran % (Auto) % Neut % (Auto) % Lymph % (Auto) % Mora % (Auto) % Eos % (Auto) % Baso % (Auto) % Immature Gran # (Auto) (0.00-0.02) K/uL Neut # (Auto) (1.4-6.5) K/uL Lymph # (Auto) (1.2-3.4) K/uL Mora # (Auto) (0.11-0.59) K/uL Eos # (Auto) (0-0.5) K/uL Baso # (Auto) (0-0.2) K/uL PT 10.3 (9.0-12.0) Seconds INR 1.0 (0.9-1.1) ABG pH (7.35-7.45) ABG pCO2 (35-46) mmHg ABG pO2 (80-95) mm/Hg ABG HCO3 (19-24) mmol/L ABG O2 Saturation (90-95) % ABG Base Excess (-9-1.8) mEq/L Scotty Test (Pos) Barometric Pressure mm/Hg Oxygen Given POC Sodium 142 (135-144) mEq/L Sodium (136-145) mmol/L POC Potassium 3.6 (3.3-5.0) mEq/L Potassium (3.5-5.1) mmol/L POC Chloride 100 L (101-112) mEq/L Chloride (98-107) mmol/L Carbon Dioxide (21-32) mmol/L POC Total CO2 30 (24-31) mEq/l Anion Gap (3-11) POC Anion Gap 16.0 (16-25) mmol/L POC BUN 14 (7-18) mg/dl BUN (7-18) mg/dl Creatinine (0.6-1.2) mg/dl POC Creatinine 0.5 L (0.6-1.3) mg/dl Est Cr Clr Drug Dosing ml/min Est GFR ( Amer) Est GFR (Non-Af Amer) BUN/Creatinine Ratio (10-20) Glucose (70-99) mg/dl POC Glucose (other) 149 H (70-99) mg/dl POC Lactic Acid Issac (0.90-1.70) mmol/L Calcium (8.5-10.1) mg/dl POC Ioniz Calcium Eriberto 1.11 L (1.12-1.32) mmol/l Total Bilirubin (0.2-1) mg/dl AST (15-37) U/L ALT (12-78) U/L Alkaline Phosphatase (45-117) U/L Troponin I 0.075 H* (0-0.045) ng/ml Total Protein (6.4-8.2) gm/dl Albumin (3.4-5.0) gm/dl Globulin (2.5-4.0) gm/dl Albumin/Globulin Ratio (0.9-2) Lipase (73-393) U/L Urine Color Urine Appearance (Clear) Urine pH (4.5-7.5) Ur Specific [place] (1.000-1.030) Urine Protein (Negative) Urine Glucose (UA) (Negative) Urine Ketones (Negative) Urine Blood (Negative) Urine Nitrite (Negative) Urine Bilirubin (Negative) Urine Urobilinogen (Negative) Ur Leukocyte Esterase (Negative) Urine WBC (Auto) (0-5) /hpf Urine RBC (Auto) (0-4) /hpf U Hyaline Cast (Auto) (0-5) /lpf U Epithel Cells (Auto) (0-5) /lpf Urine Bacteria (Auto) (Negative) Ur Renal Epithelial Cell Influenza Type A Ag (Neg) Influenza Type B Ag (Neg) 05/10/18 05/10/18 05/10/18 Range/Units 08:23 08:50 10:40 WBC (4.8-10.8) K/uL RBC (4.2-5.4) M/uL Hgb (12.0-16.0) g/dL POC Hgb (12.0-16.0) g/dl Hct (37-47) % POC Hct (37-47) % MCV (80-100) fL MCH (25-34) pg MCHC (32-36) g/dL RDW Std Deviation (36.4-46.3) fL RDW Coeff of Bryan (11.5-14.5) % Plt Count (130-400) K/uL MPV (7.4-10.4) fL Immature Gran % (Auto) % Neut % (Auto) % Lymph % (Auto) % Mora % (Auto) % Eos % (Auto) % Baso % (Auto) % Immature Gran # (Auto) (0.00-0.02) K/uL Neut # (Auto) (1.4-6.5) K/uL Lymph # (Auto) (1.2-3.4) K/uL Mora # (Auto) (0.11-0.59) K/uL Eos # (Auto) (0-0.5) K/uL Baso # (Auto) (0-0.2) K/uL PT (9.0-12.0) Seconds INR (0.9-1.1) ABG pH 7.38 (7.35-7.45) ABG pCO2 51 H (35-46) mmHg ABG pO2 87 (80-95) mm/Hg ABG HCO3 29 H (19-24) mmol/L ABG O2 Saturation 96.5 H (90-95) % ABG Base Excess 3.1 H (-9-1.8) mEq/L Scotty Test Pos (Pos) Barometric Pressure 722.1 mm/Hg Oxygen Given 7 POC Sodium (135-144) mEq/L Sodium (136-145) mmol/L POC Potassium (3.3-5.0) mEq/L Potassium (3.5-5.1) mmol/L POC Chloride (101-112) mEq/L Chloride (98-107) mmol/L Carbon Dioxide (21-32) mmol/L POC Total CO2 (24-31) mEq/l Anion Gap (3-11) POC Anion Gap (16-25) mmol/L POC BUN (7-18) mg/dl BUN (7-18) mg/dl Creatinine (0.6-1.2) mg/dl POC Creatinine (0.6-1.3) mg/dl Est Cr Clr Drug Dosing ml/min Est GFR ( Amer) Est GFR (Non-Af Amer) BUN/Creatinine Ratio (10-20) Glucose (70-99) mg/dl POC Glucose (other) (70-99) mg/dl POC Lactic Acid Issac 1.66 (0.90-1.70) mmol/L Calcium (8.5-10.1) mg/dl POC Ioniz Calcium Eriberto (1.12-1.32) mmol/l Total Bilirubin (0.2-1) mg/dl AST (15-37) U/L ALT (12-78) U/L Alkaline Phosphatase (45-117) U/L Troponin I (0-0.045) ng/ml Total Protein (6.4-8.2) gm/dl Albumin (3.4-5.0) gm/dl Globulin (2.5-4.0) gm/dl Albumin/Globulin Ratio (0.9-2) Lipase (73-393) U/L Urine Color Urine Appearance (Clear) Urine pH (4.5-7.5) Ur Specific [place] (1.000-1.030) Urine Protein (Negative) Urine Glucose (UA) (Negative) Urine Ketones (Negative) Urine Blood (Negative) Urine Nitrite (Negative) Urine Bilirubin (Negative) Urine Urobilinogen (Negative) Ur Leukocyte Esterase (Negative) Urine WBC (Auto) (0-5) /hpf Urine RBC (Auto) (0-4) /hpf U Hyaline Cast (Auto) (0-5) /lpf U Epithel Cells (Auto) (0-5) /lpf Urine Bacteria (Auto) (Negative) Ur Renal Epithelial Cell Influenza Type A Ag Neg for Influ A (Neg) Influenza Type B Ag Neg for Influ B (Neg) Imaging Data Attestation: I personally reviewed and interpreted this imaging study as follows : My Impression: Bilateral lower lobe infiltrates Radiologist's Impression: XR chest 1V portable CLINICAL HISTORY: Shortness of breath. COMPARISON STUDY: Chest CT May 15, 2017 and chest radiograph November 13, 2017. FINDINGS: Lung points are normal. There is no pneumothorax or pleural effusion. There is no evidence for pulmonary edema. Cardiomediastinal silhouette is stable. Mild left lower opacity has developed. Minimal right lower lung opacity is unchanged. IMPRESSION: Interval development of mild left basilar opacity which may reflect pneumonia or atelectasis. Radiographic follow-up is recommended. Electronically signed by: Aston Dougherty M.D. 05/10/2018 8:46 AM ECG Data Attestation: I personally reviewed and interpreted this ECG as follows: Indication: SOB/dyspnea Rate (beats per minute): 115 Rhythm: normal sinus Findings: + nonspecific-ST abn Blood Pressure Blood Pressure Findings: Elevated blood pressure MDM Narrative The patient was evaluated. The patient was placed on supplemental oxygen of 11 L. She was placed on a conveyor monitor. IV access was obtained. The patient was given Solu-Medrol 125 mg IV. She was given an hour-long DuoNeb. Lactic acid [id number] was 1.66. Ice tests were reviewed. Sodium 142 potassium 3.6 glucose 149 BUN 14 and creatinine 0.5. CBC and differential, renal profile , LFTs were ordered. Chest x-ray was ordered interpreted by the radiologist and myself as above with a new infiltrate noted at the left base.. Rapid influenza was negative for influenza B and influenza A. Labs are reviewed and were unremarkable. White count was only slightly elevated at 11. The nurse took the patient off oxygen briefly and her O2 sat went down to 88. Currently after receiving a breathing treatment she is satting 97% on 6 L of oxygen. The patient was independently evaluated by Dr. Anne who agrees with treatment plan. The hospitalist was consulted for admission. Attending Attestation: Loren Anne MD independently saw and evaluated this patient and agree with history and physical is otherwise documented by the physician learning and development assistant. See their note for full details. Impression & Plan Pneumonia, COPD with hypoxia Discharge Plan Visit Data *Final* Discharge Date/Time: 05/10/18 10:32 Chief Complaint: Shortness of Breath/Dyspnea ED Provider: Luis Antonio Anne ED Midlevel Provider: Chelsey Preciado Discharge Problem: Pneumonia, COPD with hypoxia Patient Disposition: Admitted As Inpatient Condition: Good Discharge Instructions Interventions: ED Discharge Assessment Last Done: 05/10/18 10:32
[2018-05-10 08:41] LABS: Albumin Level 3.7 gm/dl (3.4-5.0); BUN Creatinine Ratio 21.2 (10-20); Calcium 8.6 mg/dl (8.5-10.1); Creatinine Clr Calc Pharmacy 90.3 ml/min; Est GFR (African American) 100.3; Est GFR (Non-African American) 86.6; Potassium 3.6 mmol/L (3.5-5.1)
[2018-05-10 08:43] LABS: Appearance Urine Clear (Clear); Bacteria Urine Automated Negative (Negative); Bilirubin Urine Negative (Negative); Color Urine Yellow; Epithelial Cell Urine Auto >30 /lpf (0-5); Glucose Urine UA Trace (Negative); Ketones Urine Negative (Negative); Leukocyte Esterase Urine Negative (Negative); Nitrite Urine Negative (Negative); Protein Urine 4+ (Negative); Specific Gravity Urine 1.017 (1.000-1.030); Urobilinogen Urine Negative (Negative)
[2018-05-10 08:43] LABS: Albumin Globulin Ratio 0.9 (0.9-2); Bilirubin,Total 0.5 mg/dl (0.2-1); Globulin 4.1 gm/dl (2.5-4.0); Total Protein 7.8 gm/dl (6.4-8.2)
--- NOTE | 2018-05-10 08:48 | XRay Report ---
XR chest 1V portable CLINICAL HISTORY: Shortness of breath. COMPARISON STUDY: Chest CT May 15, 2017 and chest radiograph November 13, 2017. FINDINGS: Lung points are normal. There is no pneumothorax or pleural effusion. There is no evidence for pulmonary edema. Cardiomediastinal silhouette is stable. Mild left lower opacity has developed. M inimal right lower lung opacity is unchanged. IMPRESSION: Interval development of mild left basilar opacity which may reflect pneumonia or atelect asis. Radiographic follow-up is recommended. Electronically signed by: Aston Dougherty M.D. 05/10/2018 8:46 AM
[2018-05-10] MEDS: cefTRIAXone SODIUM 1,000 MG/50 ML BAG IV SCH (10:14)
[2018-05-10] MEDS: SODIUM CHLORIDE 0.9% 1000ML 1,000 ML IV SCH ×2 (10:16→23:12)
[2018-05-10 11:02] LABS: Allen Test Pos (Pos); HCO3 ABG 29 mmol/L (19-24); Oxygen Saturation ABG 96.5 % (90-95); PCO2 ABG 51 mmHg (35-46); PO2 ABG 87 mm/Hg (80-95); pH ABG 7.38 (7.35-7.45)
[2018-05-10] MEDS ORDERED: ONDANSETRON INJ 2 MG/ML 2 ML VIAL IV PRN (11:18)
[2018-05-10] MEDS ORDERED: ACETAMINOPHEN 325 MG TAB PO PRN (11:18)
[2018-05-10] MEDS ORDERED: SUMAtriptan succinate 100 MG TAB PO PRN (12:30)
[2018-05-10] MEDS: AZITHROMYCIN 500 MG in DEXTROSE 5% 250 ML IV SCH (13:30)
[2018-05-10] MEDS: IPRATROPIUM BROMIDE NEB SOLN 0.02% 2.5 ML VIAL INH SCH ×3 (13:55→23:41)
[2018-05-10] MEDS: LEVALBUTEROL 1.25MG/0.5ML NEB INH SCH ×3 (13:55→23:41)
[2018-05-10] MEDS ORDERED: LEVALBUTEROL HCL 1.25 MG/3 ML NEB NEB SCH (14:00)
[2018-05-10] MEDS ORDERED: XOPENEX/ATROVENT 1.25mg/0.5MG NEB COMBO NEB SCH (14:00)
[2018-05-10 14:21] LABS: Prothrombin Time 10.3 Seconds (9.0-12.0)
--- NOTE | 2018-05-10 15:02 | History & Physical Report ---
Date of Service May 10, 2018 Assessment & Plan (1) Acute respiratory failure with hypoxia: (2) COPD exacerbation: (3) Pneumonia: -admit to tele -Patient presenting from home with reports of worsening cough and shortness of breath x 1 week -In the ED, hypoxic on room air at 87%, CXR showing left basilar opacity suggestive of pneumonia -WBC 11K, mildly tachycardic (tachycardia likely due to neb/resp distress); BP stable, afebrile, lactic acid 1.6 -Do not suspect sespsis -s/p neb and solumedrol 125mg in the ED -start azithro and ceftriaxone -IV steroids, around the clock nebs, pulmonary toilet with IS and flutter valve -wean 02 as able (4) Abnormal EKG: (5) Elevated troponin: -EKG demonstrates ST depressions in the inferior and lateral leads - likely tachycardia induced -no reports of chest pain, initial trop 0.075 -mild trop bump likley due to demand ischemia from hypoxia -continue trend cardiac enzymes, if significant elevation, consider echo / cardio consult -of note, patient was evaluated by cardiology as an outpatient one month ago and was advised a stress test however patient no-showed for the appt; would not advise stress testing at this time due to acute illness however do recommend close outpatient follow up (6) Hypertension: -BP elevated, likely situational -continue home dose of Lisinopril, make adjustments as needed (7) Atrial flutter: -s/p ablation -currently in NSR -was advised by cardio to stop rate controlling meds due to bradycardia, anticoagulation also no longer indicated (8) Tobacco abuse: -nicotine patch -patient counseled regarding tobacco cessation (9) Anxiety: -continue Xanax and paroxetine (10) DVT prophylaxis: -SQ Lovenox History of Present Illness Chief Complaint: Cough, shortness of breath Primary Care Provider: Mrelin A Denis 72-year-old female who presents to the ED for evaluation of cough and shortness of breath. Patient reports she has not felt well since Jimbo. She reports she was on a course of medications for upper respiratory infection however does not remember which ones or specifically when she was taking them. She reports her sister at the beginning of the year and she feels as though her health has been going downhill since. She notices her breathing getting worse over the past week or so. She was seen by her PCP a couple of days ago who placed her on Augmentin and prednisone taper. Patient reports persistent shortness of breath with exertion and dry nonproductive cough. She reports chest tightness however denies chest pain or pressure. No fevers or chills. She denies lightheadedness, dizziness, diaphoresis, syncopal events. No abdominal pain, nausea, vomiting, diarrhea. She denies any urinary symptoms. In the ER, patient was saturating 88% on room air. She required oxygen 7 L via oxygen mask to maintain saturations ~ 95%. CXR shows interval development of mild left basilar opacity which may reflect pneumonia or atelectasis. She was given Solu-Medrol 125 mg IV and nebulizer treatment. Allergies Allergy/AdvReac Type Severity Reaction Status Date / Time No Known Allergies Allergy Verified 05/10/18 08:32 Home Medications Home Medications Medication Instructions Recorded Confirmed Type albuterol sulfate [ProAir HFA] 1 inh INHALATION PRN 05/10/18 History alprazolam 1.5 mg PO QPM 05/10/18 05/10/18 History amoxicillin-pot clavulanate 1 tab PO BID 05/10/18 05/10/18 History ascorbic acid (vitamin C) [Vitamin 500 mg PO QPM 05/10/18 05/10/18 History C] aspirin 81 mg PO DAILY 05/10/18 05/10/18 History calcium carbonate-vitamin D3 1 tab PO BID 05/10/18 05/10/18 History [Caltrate 600 + D] cyanocobalamin (vitamin B-12) 1,000 mcg PO QPM 05/10/18 05/10/18 History [Vitamin B-12] ibuprofen 200 mg PO DIRECTED PRN 05/10/18 05/10/18 History lisinopril 10 mg PO QPM 05/10/18 05/10/18 History omega 7-[id number]-[id number]-fish oil [Fish Oil] 1 cap PO QPM 05/10/18 05/10/18 History paroxetine HCl 60 mg PO HS 05/10/18 05/10/18 History prednisone 10 mg PO UD 05/10/18 05/10/18 History rosuvastatin 10 mg PO HS 05/10/18 05/10/18 History sumatriptan succinate [Imitrex] 1 dose PO DIRECTED PRN 05/10/18 05/10/18 History Past Med/Surg History Medical History Hypertension (Chronic) Tobacco abuse (Chronic) COPD (chronic obstructive pulmonary disease) (Chronic) Anxiety (Chronic) Atrial flutter (Chronic) "s/p Ablation 06/19/[address] Wilson" Left ventricular diastolic dysfunction (Chronic) "last echo 08/21/17 EF 55-59% with left ventricular DD" Surgical History History of discectomy (Chronic) History of breast biopsy (Chronic) History of laparoscopy (Chronic) "endometriosis" Status post ablation of atrial flutter (Chronic) Family History Father Hypertension Brother Diabetes Social History Current Living Situation: Alone Feels Safe at Home: Yes Safety Concerns: Feels Safe At This Time Smoking Status: Current every day smoker Tobacco Type: cigarettes Cigarettes per Day: 1 PPD Do You Dip or Chew Tobacco: No Second Hand Exposure: Yes Tobacco Cessation Education Requested by Patient: No Hx Alcohol Use: Yes Alcohol type: wine Alcohol Intake Frequency: holidays/ special occasions only Hx Substance Use: No Beliefs That Will Affect Care: None Preferred Language: Korean Communication Ability: Effective Communication Ability Comment: Inhibited only by SOB. Fur Buyer Required: No Review of Systems ROS per HPI, all other systems reviewed and negative Physical Exam 2 Vital Signs (Past 24 Hours): Last Vital Signs Temp 37.4 C 05/10/18 11:19 Pulse 91 H 05/10/18 14:05 Resp 22 05/10/18 14:05 BP 155/95 H 05/10/18 11:19 Pulse Ox 83 L 05/10/18 14:05 Constitutional: WD/WN, vitals as above Eyes: PERRL, conjunctivae normal, anicteric sclerae ENMT: external ear and nose normal, oropharynx normal Respiratory: + labored breathing (Mild) and + audible wheezes; + not able to speak in complete sentence (Mild difficulty) Auscultation: + diminished lung sounds and + wheezes (Bilateral, expiratory) Cardiovascular: Rate/Rhythm: regular rhythm and + tachycardic Vessels: normal peripheral pulses Extremities: no edema Gastrointestinal (Abdomen): normal bowel sounds, soft, nontender, no hepatosplenomegaly Musculoskeletal: no cyanosis or clubbing, extremities motor strength 5/5 Skin: no rashes, warm and dry Neurologic: PERRL, EOMI, accommodation nl, no face palsy, no dysarthria Psychiatric: A+Ox3, euthymic affect Results & Data Laboratory Results Laboratory Last Values WBC 11.00 K/uL (4.8-10.8) H 05/10/18 08:15 RBC 5.11 M/uL (4.2-5.4) 05/10/18 08:15 Hgb 16.7 g/dL (12.0-16.0) H 05/10/18 08:15 POC Hgb 17.7 g/dl (12.0-16.0) H 05/10/18 08:19 Hct 50.3 % (37-47) H 05/10/18 08:15 POC Hct 52 % (37-47) H 05/10/18 08:19 MCV 98.4 fL (80-100) 05/10/18 08:15 MCH 32.7 pg (25-34) 05/10/18 08:15 MCHC 33.2 g/dL (32-36) 05/10/18 08:15 RDW Std Deviation 51.9 fL (36.4-46.3) H 05/10/18 08:15 RDW Coeff of Bryan 14.3 % (11.5-14.5) 05/10/18 08:15 Plt Count 237 K/uL (130-400) 05/10/18 08:15 MPV 9.8 fL (7.4-10.4) 05/10/18 08:15 Immature Gran % (Auto) 0.2 % 05/10/18 08:15 Neut % (Auto) 70.5 % 05/10/18 08:15 Lymph % (Auto) 21.0 % 05/10/18 08:15 [place] % (Auto) 7.9 % 05/10/18 08:15 Eos % (Auto) 0.2 % 05/10/18 08:15 Baso % (Auto) 0.2 % 05/10/18 08:15 Immature Gran # (Auto) 0.02 K/uL (0.00-0.02) 05/10/18 08:15 Neut # (Auto) 7.76 K/uL (1.4-6.5) H 05/10/18 08:15 Lymph # (Auto) 2.31 K/uL (1.2-3.4) 05/10/18 08:15 [place] # (Auto) 0.87 K/uL (0.11-0.59) H 05/10/18 08:15 Eos # (Auto) 0.02 K/uL (0-0.5) 05/10/18 08:15 Baso # (Auto) 0.02 K/uL (0-0.2) 05/10/18 08:15 PT 10.3 Seconds (9.0-12.0) 05/10/18 08:15 INR 1.0 (0.9-1.1) 05/10/18 08:15 ABG pH 7.38 (7.35-7.45) 05/10/18 10:40 ABG pCO2 51 mmHg (35-46) H 05/10/18 10:40 ABG pO2 87 mm/Hg (80-95) 05/10/18 10:40 ABG HCO3 29 mmol/L (19-24) H 05/10/18 10:40 ABG O2 Saturation 96.5 % (90-95) H 05/10/18 10:40 ABG Base Excess 3.1 mEq/L (-9-1.8) H 05/10/18 10:40 Scotty Test Pos (Pos) 05/10/18 10:40 Barometric Pressure 722.1 mm/Hg 05/10/18 10:40 Oxygen Given 7 05/10/18 10:40 POC Sodium 142 mEq/L (135-144) 05/10/18 08:19 Sodium 140 mmol/L (136-145) 05/10/18 08:15 POC Potassium 3.6 mEq/L (3.3-5.0) 05/10/18 08:19 Potassium 3.6 mmol/L (3.5-5.1) 05/10/18 08:15 POC Chloride 100 mEq/L (101-112) L 05/10/18 08:19 Chloride 104 mmol/L (98-107) 05/10/18 08:15 Carbon Dioxide 31 mmol/L (21-32) 05/10/18 08:15 POC Total CO2 30 mEq/l (24-31) 05/10/18 08:19 Anion Gap 5.0 (3-11) 05/10/18 08:15 POC Anion Gap 16.0 mmol/L (16-25) 05/10/18 08:19 POC BUN 14 mg/dl (7-18) 05/10/18 08:19 BUN 15 mg/dl (7-18) 05/10/18 08:15 Creatinine 0.70 mg/dl (0.6-1.2) 05/10/18 08:15 POC Creatinine 0.5 mg/dl (0.6-1.3) L 05/10/18 08:19 Est Cr Clr Drug Dosing 90.3 ml/min 05/10/18 08:15 Est GFR ( Amer) 100.3 05/10/18 08:15 Est GFR (Non-Af Amer) 86.6 05/10/18 08:15 BUN/Creatinine Ratio 21.2 (10-20) H 05/10/18 08:15 Glucose 145 mg/dl (70-99) H 05/10/18 08:15 POC Glucose (other) 149 mg/dl (70-99) H 05/10/18 08:19 POC Lactic Acid Issac 1.66 mmol/L (0.90-1.70) 05/10/18 08:23 Calcium 8.6 mg/dl (8.5-10.1) 05/10/18 08:15 POC Ioniz Calcium Eriberto 1.11 mmol/l (1.12-1.32) L 05/10/18 08:19 Total Bilirubin 0.5 mg/dl (0.2-1) 05/10/18 08:15 AST 33 U/L (15-37) 05/10/18 08:15 ALT 40 U/L (12-78) 05/10/18 08:15 Alkaline Phosphatase 70 U/L (45-117) 05/10/18 08:15 Troponin I 0.075 ng/ml (0-0.045) H* 05/10/18 08:15 Total Protein 7.8 gm/dl (6.4-8.2) 05/10/18 08:15 Albumin 3.7 gm/dl (3.4-5.0) 05/10/18 08:15 Globulin 4.1 gm/dl (2.5-4.0) H 05/10/18 08:15 Albumin/Globulin Ratio 0.9 (0.9-2) 05/10/18 08:15 Lipase 79 U/L (73-393) 05/10/18 08:15 Urine Color Yellow 05/10/18 08:05 Urine Appearance Clear (Clear) 05/10/18 08:05 Urine pH 7.0 (4.5-7.5) 05/10/18 08:05 Ur Specific [place] 1.017 (1.000-1.030) 05/10/18 08:05 Urine Protein 4+ (Negative) H 05/10/18 08:05 Urine Glucose (UA) Trace (Negative) H 05/10/18 08:05 Urine Ketones Negative (Negative) 05/10/18 08:05 Urine Blood Trace (Negative) H 05/10/18 08:05 Urine Nitrite Negative (Negative) 05/10/18 08:05 Urine Bilirubin Negative (Negative) 05/10/18 08:05 Urine Urobilinogen Negative (Negative) 05/10/18 08:05 Ur Leukocyte Esterase Negative (Negative) 05/10/18 08:05 Urine WBC (Auto) 1-5 /hpf (0-5) 05/10/18 08:05 Urine RBC (Auto) 0-4 /hpf (0-4) 05/10/18 08:05 U Hyaline Cast (Auto) 1-5 /lpf (0-5) 05/10/18 08:05 U Epithel Cells (Auto) >30 /lpf (0-5) H 05/10/18 08:05 Urine Bacteria (Auto) Negative (Negative) 05/10/18 08:05 Ur Renal Epithelial Cell Not Reportable 05/10/18 08:05 Influenza Type A Ag Neg for Influ A (Neg) 05/10/18 08:50 Influenza Type B Ag Neg for Influ B (Neg) 05/10/18 08:50 Diagnostic Findings CXR IMPRESSION: Interval development of mild left basilar opacity which may reflect pneumonia or atelectasis. Radiographic follow-up is recommended. Code Status & VTE Plan VTE Prophylaxis Plan VTE Prophylaxis will be ordered: Yes Supervising Physician Co-Signing Physician Notes Attending Addendum: care coordinated with KAREEN Chen please refer to her notes for full details, I agree with her notes patient seen and examined, records reviewed by myself as well on exam, patient seen resting in bed, comfortable, not in distress states she feels improved compared to admission still has dry cough no chest pain, headache, dizziness, nausea/vomiting, palpitaitons no other symptoms VS noted and reviewed oriented x 2, not in distress, speaks in sentences with no effort nor accessory muscle use normal rate, regular rhythm, no murmurs mild scattered wheeze and rhonchi bilaterally non distended, soft, nontender no bipedal edema, erythema, warmth no neuro deficits WBC 11 Hg 16 Crea 0.7 ASSESSMENT AND PLAN PNEUMONIA, COPD EXACERBATION Ceftri, Azithro Solumedrol Nebs ELEVATED TROPONIN denies chest pain EKG no signs of acute ischemia likely from demand ischemia secondary to hypoxia, tachycardia, hypertension repeat level at 930pm may need heparin drip if continues to trend up other diagnoses and plan of care as per KAREEN Chen's notes Killian Fontana MD
[2018-05-10] MEDS: methylPREDNISolone 40 MG in SYRINGE 0 ML IV SCH ×2 (15:46→23:37)
[2018-05-10] MEDS: LISINOPRIL 10 MG TAB PO SCH (16:48)
[2018-05-10] MEDS: NICOTINE 21 MG/24 HR TDSY TD SCH (17:12)
[2018-05-10] MEDS ORDERED: ENOXAPARIN INJ 40 MG/0.4 ML SYR SQ SCH (18:00)
[2018-05-10] MEDS ORDERED: AMLODIPINE BESYLATE 5 MG TAB PO PRN (18:39)
[2018-05-10] MEDS: PARoxetine HCl 20 MG TAB PO SCH (20:34)
[2018-05-10] MEDS: ROSUVASTATIN CALCIUM 10 MG TAB PO SCH (20:35)
[2018-05-10] MEDS: ALPRAZolam 0.5 MG TABLET PO SCH (20:40)
[2018-05-10] MEDS ORDERED: LISINOPRIL 10 MG TAB PO SCH (21:00)
[2018-05-10] MEDS ORDERED: LACTATED RINGER'S 1,000 ML IV ONE (23:15)
[2018-05-10] MEDS ORDERED: OPTIRAY 320 125ml IV PRN (23:22)
--- NOTE | 2018-05-11 00:42 | Hospitalist Progress Note ---
Date of Service May 11, 2018 Subjective Made aware by RN of increasing troponin levels. Initiate IV heparin if CT angio head negative for significant vascular ectasia as per discussion with AM provider. Physical Exam 2 Vital Signs (Past 24 Hours): Last Vital Signs Temp 37 C 05/10/18 23:34 Pulse 90 05/10/18 23:42 Resp 16 05/10/18 23:42 BP 161/87 H 05/10/18 23:34 Pulse Ox 93 05/10/18 23:42
[2018-05-11] MEDS ORDERED: Heparin IV Standard *NO* Bolus IV ONE (00:45)
[2018-05-11 01:52] LABS: Partial Thromboplastin Ratio 1.1; Partial Thromboplastin Time 28.1 Seconds (21.0-31.0)
[2018-05-11] MEDS ORDERED: HEPARIN IV BOLUS 6,000 UNITS in SYRINGE 0 ML IV ONE (02:12)
[2018-05-11] MEDS: HEPARIN STANDARD DEXTROSE 25,000 UNITS/500 ML IV SCH ×2 (02:24→17:42)
[2018-05-11] MEDS: LEVALBUTEROL 1.25MG/0.5ML NEB INH SCH ×6 (03:19→23:26)
[2018-05-11] MEDS: IPRATROPIUM BROMIDE NEB SOLN 0.02% 2.5 ML VIAL INH SCH ×6 (03:19→23:26)
[2018-05-11] MEDS: NICOTINE 21 MG/24 HR TDSY TD SCH (07:58)
[2018-05-11] MEDS: ASPIRIN 81 MG ECTAB PO SCH (07:58)
[2018-05-11] MEDS: methylPREDNISolone 40 MG in SYRINGE 0 ML IV SCH ×3 (07:58→23:52)
--- NOTE | 2018-05-11 08:27 | Hospitalist Progress Note ---
Date of Service May 11, 2018 Assessment & Plan (1) Acute respiratory failure with hypoxia: (2) COPD exacerbation: (3) Pneumonia: -admit to tele -Patient presenting from home with reports of worsening cough and shortness of breath x 1 week -In the ED, hypoxic on room air at 87%, CXR showing left basilar opacity suggestive of pneumonia -WBC 11K, mildly tachycardic (tachycardia likely due to neb/resp distress); BP stable, afebrile, lactic acid 1.6 - clinically improving obtain sputum cultures - continue Ceftri, Azithro Nebs Solumedrol - wean off O2 - may benefit from Advair smoking cessation counselling (4) Abnormal EKG: (5) Elevated troponin: -of note, patient was evaluated by cardiology as an outpatient one month ago and was advised a stress test however patient no-showed for the appt; would not advise stress testing at this time due to acute illness however do recommend close outpatient follow up - troponin trended up to 3 EKG inverted t waves anterior leads - patient chest pain free - possible NSTEMI vs Demand Ischemia started on Heparin drip added Metoprolol tartrate 12.5mg BID (monitor HR, has history of bradycardia) already on ASA, Crestor CT angio head ordered to evaluate vascular ectasia noted in 2013 (6) Hypertension: uncontrolled added Metoprolol tartrate 12.5mg BID (monitor HR, has history of bradycardia) continue Lisinopril (7) Atrial flutter: -s/p ablation -currently in NSR -was advised by cardio to stop rate controlling meds due to bradycardia, anticoagulation also no longer indicated in light of elevated troponin with ekg changes, added Metoprolol tartrate 12.5mg BID (monitor HR, has history of bradycardia) (8) Tobacco abuse: -nicotine patch -patient counseled regarding tobacco cessation (9) Anxiety: -continue Xanax and paroxetine - feels anxious, hypervigilant all the time 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 - discussed with patient she is agreeable for Psych consultation (10) DVT prophylaxis: on Heparin drip Disposition pending anticipate d/c home when medically stable Subjective ff up for pneumonia, copd exacerbation, elevated troponins seen sitting up in bed, having breakfast states she continues to feel improved no dyspnea, less cough and sputum production, less chest congestion denies chest pain, palpitations, nausea, dizziness, headache 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 notes paranoid statements from patient she reports her screen printing loader unloader has been "stalking" her for the past 15 years, blocking phone calls/emails states she always feels anxious, hypervigilant has been taking Paroxetine for years, not able to see a therapist due to cost denies depression, states her mood is positive this morning no other symptoms Physical Exam 2 Vital Signs (Past 24 Hours): Last Vital Signs Temp 36.9 C 05/11/18 07:56 Pulse 94 H 05/11/18 07:56 Resp 16 05/11/18 07:56 BP 147/88 H 05/11/18 07:56 Pulse Ox 96 05/11/18 07:56 Physical Exam: General- oriented x 3, not in distress, speaks in sentences with no effort or accessory muscle use Eyes- anicteric Neck- no JVD Lungs- faint occasional wheeze bilaterally no crackles good air entry bilaterally Heart- normal rate, regular rhythm; no murmurs Abdomen- normal bowel sounds, nondistended, soft, nontender Extremities- no pretibial edema, no calf tenderness Neuro- alert, oriented x 3; no gross focal neurologic deficits Skin- warm & dry Psych- affect appropriate, mood bright, denies suicidality Results & Data Laboratory Results Laboratory Results - last 24 hr 05/10/18 05/10/18 05/10/18 08:05 08:15 08:15 WBC 11.00 H RBC 5.11 Hgb 16.7 H POC Hgb Hct 50.3 H POC Hct MCV 98.4 MCH 32.7 MCHC 33.2 RDW Std Deviation 51.9 H RDW Coeff of Bryan 14.3 Plt Count 237 MPV 9.8 Immature Gran % (Auto) 0.2 Neut % (Auto) 70.5 Lymph % (Auto) 21.0 [place] % (Auto) 7.9 Eos % (Auto) 0.2 Baso % (Auto) 0.2 Immature Gran # (Auto) 0.02 Neut # (Auto) 7.76 H Lymph # (Auto) 2.31 [place] # (Auto) 0.87 H Eos # (Auto) 0.02 Baso # (Auto) 0.02 PT INR APTT PTT Ratio ABG pH ABG pCO2 ABG pO2 ABG HCO3 ABG O2 Saturation ABG Base Excess Scotty Test Barometric Pressure Oxygen Given POC Sodium Sodium 140 POC Potassium Potassium 3.6 POC Chloride Chloride 104 Carbon Dioxide 31 POC Total CO2 Anion Gap 5.0 POC Anion Gap POC BUN BUN 15 Creatinine 0.70 POC Creatinine Est Cr Clr Drug Dosing 90.3 Est GFR ( Amer) 100.3 Est GFR (Non-Af Amer) 86.6 BUN/Creatinine Ratio 21.2 H Glucose 145 H POC Glucose (other) POC Lactic Acid Issac Calcium 8.6 POC Ioniz Calcium Eriberto Total Bilirubin 0.5 AST 33 ALT 40 Alkaline Phosphatase 70 Troponin I Total Protein 7.8 Albumin 3.7 Globulin 4.1 H Albumin/Globulin Ratio 0.9 Lipase 79 Urine Color Yellow Urine Appearance Clear Urine pH 7.0 Ur Specific [place] 1.017 Urine Protein 4+ H Urine Glucose (UA) Trace H Urine Ketones Negative Urine Blood Trace H Urine Nitrite Negative Urine Bilirubin Negative Urine Urobilinogen Negative Ur Leukocyte Esterase Negative Urine WBC (Auto) 1-5 Urine RBC (Auto) 0-4 U Hyaline Cast (Auto) 1-5 U Epithel Cells (Auto) >30 H Urine Bacteria (Auto) Negative Ur Renal Epithelial Cell Not Reportable Influenza Type A Ag Influenza Type B Ag 05/10/18 05/10/18 05/10/18 08:15 08:15 08:19 WBC RBC Hgb POC Hgb 17.7 H Hct POC Hct 52 H MCV MCH MCHC RDW Std Deviation RDW Coeff of Bryan Plt Count MPV Immature Gran % (Auto) Neut % (Auto) Lymph % (Auto) [place] % (Auto) Eos % (Auto) Baso % (Auto) Immature Gran # (Auto) Neut # (Auto) Lymph # (Auto) [place] # (Auto) Eos # (Auto) Baso # (Auto) PT 10.3 INR 1.0 APTT PTT Ratio ABG pH ABG pCO2 ABG pO2 ABG HCO3 ABG O2 Saturation ABG Base Excess Scotty Test Barometric Pressure Oxygen Given POC Sodium 142 Sodium POC Potassium 3.6 Potassium POC Chloride 100 L Chloride Carbon Dioxide POC Total CO2 30 Anion Gap POC Anion Gap 16.0 POC BUN 14 BUN Creatinine POC Creatinine 0.5 L Est Cr Clr Drug Dosing Est GFR ( Amer) Est GFR (Non-Af Amer) BUN/Creatinine Ratio Glucose POC Glucose (other) 149 H POC Lactic Acid Issac Calcium POC Ioniz Calcium Eriberto 1.11 L Total Bilirubin AST ALT Alkaline Phosphatase Troponin I 0.075 H* Total Protein Albumin Globulin Albumin/Globulin Ratio Lipase Urine Color Urine Appearance Urine pH Ur Specific [place] Urine Protein Urine Glucose (UA) Urine Ketones Urine Blood Urine Nitrite Urine Bilirubin Urine Urobilinogen Ur Leukocyte Esterase Urine WBC (Auto) Urine RBC (Auto) U Hyaline Cast (Auto) U Epithel Cells (Auto) Urine Bacteria (Auto) Ur Renal Epithelial Cell Influenza Type A Ag Influenza Type B Ag 05/10/18 05/10/18 05/10/18 08:23 08:50 10:40 WBC RBC Hgb POC Hgb Hct POC Hct MCV MCH MCHC RDW Std Deviation RDW Coeff of Bryan Plt Count MPV Immature Gran % (Auto) Neut % (Auto) Lymph % (Auto) [place] % (Auto) Eos % (Auto) Baso % (Auto) Immature Gran # (Auto) Neut # (Auto) Lymph # (Auto) [place] # (Auto) Eos # (Auto) Baso # (Auto) PT INR APTT PTT Ratio ABG pH 7.38 ABG pCO2 51 H ABG pO2 87 ABG HCO3 29 H ABG O2 Saturation 96.5 H ABG Base Excess 3.1 H Scotty Test Pos Barometric Pressure 722.1 Oxygen Given 7 POC Sodium Sodium POC Potassium Potassium POC Chloride Chloride Carbon Dioxide POC Total CO2 Anion Gap POC Anion Gap POC BUN BUN Creatinine POC Creatinine Est Cr Clr Drug Dosing Est GFR ( Amer) Est GFR (Non-Af Amer) BUN/Creatinine Ratio Glucose POC Glucose (other) POC Lactic Acid Issac 1.66 Calcium POC Ioniz Calcium Eriberto Total Bilirubin AST ALT Alkaline Phosphatase Troponin I Total Protein Albumin Globulin Albumin/Globulin Ratio Lipase Urine Color Urine Appearance Urine pH Ur Specific [place] Urine Protein Urine Glucose (UA) Urine Ketones Urine Blood Urine Nitrite Urine Bilirubin Urine Urobilinogen Ur Leukocyte Esterase Urine WBC (Auto) Urine RBC (Auto) U Hyaline Cast (Auto) U Epithel Cells (Auto) Urine Bacteria (Auto) Ur Renal Epithelial Cell Influenza Type A Ag Neg for Influ A Influenza Type B Ag Neg for Influ B 05/10/18 05/10/18 05/11/18 15:37 21:35 01:27 WBC RBC Hgb POC Hgb Hct POC Hct MCV MCH MCHC RDW Std Deviation RDW Coeff of Bryan Plt Count MPV Immature Gran % (Auto) Neut % (Auto) Lymph % (Auto) [place] % (Auto) Eos % (Auto) Baso % (Auto) Immature Gran # (Auto) Neut # (Auto) Lymph # (Auto) [place] # (Auto) Eos # (Auto) Baso # (Auto) PT INR APTT 28.1 PTT Ratio 1.1 ABG pH ABG pCO2 ABG pO2 ABG HCO3 ABG O2 Saturation ABG Base Excess Scotty Test Barometric Pressure Oxygen Given POC Sodium Sodium POC Potassium Potassium POC Chloride Chloride Carbon Dioxide POC Total CO2 Anion Gap POC Anion Gap POC BUN BUN Creatinine POC Creatinine Est Cr Clr Drug Dosing Est GFR ( Amer) Est GFR (Non-Af Amer) BUN/Creatinine Ratio Glucose POC Glucose (other) POC Lactic Acid Issac Calcium POC Ioniz Calcium Eriberto Total Bilirubin AST ALT Alkaline Phosphatase Troponin I 2.780 H* 3.760 H* Total Protein Albumin Globulin Albumin/Globulin Ratio Lipase Urine Color Urine Appearance Urine pH Ur Specific [place] Urine Protein Urine Glucose (UA) Urine Ketones Urine Blood Urine Nitrite Urine Bilirubin Urine Urobilinogen Ur Leukocyte Esterase Urine WBC (Auto) Urine RBC (Auto) U Hyaline Cast (Auto) U Epithel Cells (Auto) Urine Bacteria (Auto) Ur Renal Epithelial Cell Influenza Type A Ag Influenza Type B Ag
--- NOTE | 2018-05-11 08:49 | Cardiology Consultation ---
Date of Consultation May 11, 2018 Assessment & Plan (1) NSTEMI (non-ST elevated myocardial infarction): The troponin elevation is a little bit beyond what I would consider just from stress due to hypoxia. She most likely had a non-STEMI and given her history of cigarette smoking most likely has underlying coronary artery disease. She is currently clinically stable and I believe conservative management is indicated at this time. I would continue to treat her pneumonia and exacerbation of COPD. I would agree with starting heparin as well as a beta -micky. I would be careful with the beta-micky due to her acute pulmonary problems. I do not believe that this is congestive heart failure and I would lean more towards exacerbation of COPD and pneumonia. She is currently on aspirin and I will add Plavix to her medical regimen. I have stopped her IV fluids as she is not dehydrated and eating a normal diet. An echocardiogram is pending which I will review when it is completed. (2) COPD exacerbation: (3) Pneumonia: (4) Acute respiratory failure with hypoxia: (5) Tobacco abuse: History of Present Illness Attending Physician: Killian Fontana MD History of Present Illness This is a pleasant 72-year-old female who has been followed in our practice most recently by Dr. Prabhakar. She has a history of atrial flutter and is status post isthmus ablation. After that procedure she had some bradycardia and junctional rhythm felt due to continued calcium channel blockers after the ablation. Once the diltiazem was discontinued, she had no additional bradycardia arrhythmias and overall has done well. She was admitted with acute exacerbation of COPD and pneumonia. She was hypoxic on admission. There were no acute changes on her EKG that would suggest ACS however, after admission she has had an elevation in her cardiac troponins. This morning she is pain-free. She feels less short of breath. On the monitor she is maintained a sinus rhythm Allergies Allergy/AdvReac Type Severity Reaction Status Date / Time No Known Allergies Allergy Verified 05/10/18 08:32 Home Medications Home Medications Medication Instructions Recorded Confirmed Type albuterol sulfate [ProAir HFA] 1 inh INHALATION PRN 05/10/18 History alprazolam 1.5 mg PO QPM 05/10/18 05/10/18 History amoxicillin-pot clavulanate 1 tab PO BID 05/10/18 05/10/18 History ascorbic acid (vitamin C) [Vitamin 500 mg PO QPM 05/10/18 05/10/18 History C] aspirin 81 mg PO DAILY 05/10/18 05/10/18 History calcium carbonate-vitamin D3 1 tab PO BID 05/10/18 05/10/18 History [Caltrate 600 + D] cyanocobalamin (vitamin B-12) 1,000 mcg PO QPM 05/10/18 05/10/18 History [Vitamin B-12] ibuprofen 200 mg PO DIRECTED PRN 05/10/18 05/10/18 History lisinopril 10 mg PO QPM 05/10/18 05/10/18 History omega 1-dbj-xto-fish oil [Fish Oil] 1 cap PO QPM 05/10/18 05/10/18 History paroxetine HCl 60 mg PO HS 05/10/18 05/10/18 History prednisone 10 mg PO UD 05/10/18 05/10/18 History rosuvastatin 10 mg PO HS 05/10/18 05/10/18 History sumatriptan succinate [Imitrex] 1 dose PO DIRECTED PRN 05/10/18 05/10/18 History Patient History Medical History Hypertension (Chronic) Tobacco abuse (Chronic) COPD (chronic obstructive pulmonary disease) (Chronic) Anxiety (Chronic) Atrial flutter (Chronic) "s/p Ablation 06/19/[address] Wilson" Left ventricular diastolic dysfunction (Chronic) "last echo 08/21/17 EF 55-59% with left ventricular DD" Surgical History History of discectomy (Chronic) History of breast biopsy (Chronic) History of laparoscopy (Chronic) "endometriosis" Status post ablation of atrial flutter (Chronic) Social History marital status: Single Current Living Situation: Alone Feels Safe at Home: Yes Safety Concerns: Feels Safe At This Time Smoking Status: Current every day smoker Tobacco Type: cigarettes Cigarettes per Day: 1 PPD Do You Dip or Chew Tobacco: No Second Hand Exposure: Yes Tobacco Cessation Education Requested by Patient: No Hx Alcohol Use: Yes Alcohol type: wine Alcohol Intake Frequency: holidays/ special occasions only Hx Substance Use: No Beliefs That Will Affect Care: None Communication Ability: Effective Review of Systems Review of Systems: See HPI for pertinent positives. All other 10 point review of systems are negative. Physical Exam 2 Vital Signs (Past 24 Hours): Last Vital Signs Temp 36.9 C 05/11/18 07:56 Pulse 94 H 05/11/18 07:56 Resp 16 05/11/18 07:56 BP 147/88 H 05/11/18 07:56 Pulse Ox 96 05/11/18 07:56 Physical Exam: General: no acute distress and stated age Head: normocephalic, no masses, lesions, tenderness or abnormalities Eyes: conjunctiva are pink and non-injected, sclera clear Neck: supple, no adenopathy, no bruits, normal jugular venous pulse, no hepatojugular reflux Chest: normal shape and normal respiratory effort Lungs: Diffuse wheezing and rhonchi and rales at the left base. Cardiac Exam: - regular rate & rhythm, no murmurs gallops or rubs - normal S1, normal S2 Pulses: 2(+) throughout Abdomen: abdomen soft, non-tender, no abnormal masses and no hepatosplenomegaly Musculoskeletal: no gait disturbance, no joint inflammation, no deforming arthritis Extremities: no edema and no cyanosis Neuro: grossly normal exam Results & Data Laboratory Results Laboratory Results - last 24 hr 05/10/18 05/10/18 05/10/18 08:05 08:15 08:15 PT 10.3 INR 1.0 APTT PTT Ratio ABG pH ABG pCO2 ABG pO2 ABG HCO3 ABG O2 Saturation ABG Base Excess Scotty Test Barometric Pressure Oxygen Given Troponin I 0.075 H* Ur Renal Epithelial Cell Not Reportable Influenza Type A Ag Influenza Type B Ag 05/10/18 05/10/18 05/10/18 08:50 10:40 15:37 PT INR APTT PTT Ratio ABG pH 7.38 ABG pCO2 51 H ABG pO2 87 ABG HCO3 29 H ABG O2 Saturation 96.5 H ABG Base Excess 3.1 H Scotty Test Pos Barometric Pressure 722.1 Oxygen Given 7 Troponin I 2.780 H* Ur Renal Epithelial Cell Influenza Type A Ag Neg for Influ A Influenza Type B Ag Neg for Influ B 05/10/18 05/11/18 21:35 01:27 PT INR APTT 28.1 PTT Ratio 1.1 ABG pH ABG pCO2 ABG pO2 ABG HCO3 ABG O2 Saturation ABG Base Excess Scotty Test Barometric Pressure Oxygen Given Troponin I 3.760 H* Ur Renal Epithelial Cell Influenza Type A Ag Influenza Type B Ag Medications Administered Current Inpatient Medications Acetaminophen (Tylenol) 650 mg PO Q4H PRN PRN Reason: Pain or Fever Stop: 06/09/18 11:17 Alprazolam (Xanax) 1.5 mg PO QPM HUSSEIN Stop: 06/09/18 20:59 Last Admin: 05/10/18 20:40 Dose: 1.5 mg Amlodipine Besylate (Norvasc) 2.5 mg PO DAILY PRN PRN Reason: Hypertension Stop: 06/09/18 18:38 Aspirin (Ecotrin Ectab) 81 mg PO DAILY [facility] Stop: 06/10/18 08:59 Last Admin: 05/11/18 07:58 Dose: 81 mg Clopidogrel Bisulfate (Plavix) 75 mg PO QAM [facility] Stop: 06/10/18 08:59 Azithromycin 500 mg/ Dextrose 255 mls @ 125 mls/hr IV DAILY [facility] Stop: 05/17/18 10:14 Last Infusion: 05/10/18 15:49 Dose: Infused Ceftriaxone Sodium (Rocephin) 1,000 mg in 50 mls @ 100 mls/hr IV DAILY [facility] Stop: 05/17/18 10:14 Last Admin: 05/11/18 08:50 Dose: 50 mls/hr Methylprednisolone 40 mg/ (Syringe) 0.64 mls @ 1.5 mls/min IV Q8H [facility] Stop: 06/09/18 15:59 Last Admin: 05/11/18 07:58 Dose: 1.5 mls/min Heparin Sodium/Dextrose (Heparin Sodium/Dextrose) 25,000 units in 500 mls @ 28 mls/hr IV .[id number] [facility]; Protocol Stop: 06/10/18 01:00 Last Admin: 05/11/18 02:24 Dose: 1,400 units/hr, 28 mls/hr Ioversol (Optiray 320 125ml) 119 ml IV ONCE PRN PRN Reason: Interaction Checking Stop: 05/14/18 23:21 Last Admin: 05/10/18 23:22 Dose: 119 ml Ipratropium [place] (Atrovent 0.02% 0.5mg/2.5ml) 0.5 mg INH Q4R HUSSEIN Stop: 06/09/18 15:59 Last Admin: 05/11/18 07:30 Dose: 0.5 mg Levalbuterol HCl (Xopenex 1.25mg/0.5ml Neb) 1.25 mg INH Q4R HUSSEIN Stop: 06/09/18 15:59 Last Admin: 05/11/18 07:30 Dose: 1.25 mg Lisinopril (Zestril) 10 mg PO QPM HUSSEIN Stop: 06/09/18 16:44 Last Admin: 05/10/18 16:48 Dose: 10 mg Miscellaneous (Remove Nicoderm Patch) 1 ea N/A HS HUSSEIN Stop: 06/09/18 20:59 Last Admin: 05/10/18 21:14 Dose: Not Given Nicotine (Nicoderm Cq) 21 mg TD QAM HUSSEIN Stop: 06/09/18 16:44 Last Admin: 05/11/18 07:58 Dose: 21 mg Ondansetron HCl (Zofran) 4 mg IV Q6H PRN PRN Reason: Nausea Stop: 06/09/18 11:17 Paroxetine HCl (Paxil) 60 mg PO HS HUSSEIN Stop: 06/09/18 20:59 Last Admin: 05/10/18 20:34 Dose: 60 mg Rosuvastatin Calcium (Crestor) 10 mg PO HS HUSSEIN Stop: 06/09/18 20:59 Last Admin: 05/10/18 20:35 Dose: 10 mg Sumatriptan Succinate (Imitrex) 100 mg PO UD PRN PRN Reason: Migraine Headache Stop: 06/09/18 12:29 Last Admin: 05/10/18 13:30 Dose: 100 mg
[2018-05-11] MEDS: cefTRIAXone SODIUM 1,000 MG/50 ML BAG IV SCH (08:50)
[2018-05-11] MEDS ORDERED: METOPROLOL TARTRATE 25 MG TAB PO SCH ×3 (09:00→21:00)
[2018-05-11 09:12] LABS: Basophils # (auto) 0.01 K/uL (0-0.2); Basophils % (auto) 0.1 %; Hematocrit (blood only) 46.7 % (37-47); Hemoglobin 15.5 g/dL (12.0-16.0); Immature Granulocytes # (auto) 0.03 K/uL (0.00-0.02); Immature Granulocytes % (auto) 0.2 %; Lymphocytes # (auto) 0.99 K/uL (1.2-3.4); Mean Corpuscular Volume 98.3 fL (80-100); Monocytes % (auto) 6.4 %; Neutrophils # (auto) 12.12 K/uL (1.4-6.5); Neutrophils % (auto) 86.3 %; Platelet Count 238 K/uL (130-400); RDW Coefficient of Variation 14.5 % (11.5-14.5); RDW Standard Deviation 52.1 fL (36.4-46.3); Red Blood Count 4.75 M/uL (4.2-5.4); White Blood Count 14.05 K/uL (4.8-10.8)
[2018-05-11 09:17] LABS: Mean Corpuscular Hgb Conc 33.2 g/dL (32-36)
[2018-05-11 09:23] LABS: BUN Creatinine Ratio 18.1 (10-20); Calcium 8.4 mg/dl (8.5-10.1); Creatinine Clr Calc Pharmacy 71.6 ml/min; Est GFR (African American) 80.5; Est GFR (Non-African American) 69.4; Potassium 3.8 mmol/L (3.5-5.1)
[2018-05-11 09:24] LABS: Partial Thromboplastin Ratio 2.1
[2018-05-11] MEDS: AZITHROMYCIN 500 MG in DEXTROSE 5% 250 ML IV SCH (09:25)
[2018-05-11] MEDS: CLOPIDOGREL BISULFATE 75 MG TAB PO SCH (09:25)
[2018-05-11] MEDS ORDERED: PERFLUTREN LIPID MICROSPHERE (DEFINITY) IV ONE (09:27)
[2018-05-11 09:31] LABS: Troponin I 2.23 ng/ml (0-0.045)
[2018-05-11 09:48] LABS: Partial Thromboplastin Time 54.7 Seconds (21.0-31.0)
--- NOTE | 2018-05-11 11:22 | CT Scan Report ---
CT angio head wo/w CLINICAL HISTORY: hx intracranial vascular ectasia (asperdrpanlilio) COMPARISON STUDY: Head CT and CTA of the head April 30, 2013. TECHNIQUE: Unenhanced and arterial phase imaging of the head was performed. Intravenous injection of 119 cc of Optiray 320 IV was uneventful. Sagittal and coronal reconstructions were viewed as well as maximal intensity projections on an independent 3-D workstation. Study was performed utilizing automa lucas exposure control for dose reduction and according to ALARA principles. FINDINGS: No acute intracranial hemorrhage, midline shift or mass effect is present. Ventricular syst em is stable. Basilar cisterns are patent. There are no extra-axial collections. Mild white matter hy podensity suggests small vessel disease. There are no findings to suggest acute dural sinus thrombosi s or acute territorial infarct. There are no significant calvarial abnormalities. There is mild sinus mucosal thickening. The bilateral M1, M2, A1 and A2 segments are patent. Slight prominence of the right MCA trifurcation is similar to exam of April 30, 2013. No saccular aneurysm is identified. There is no abrupt vessel cut off. There is no dissection. The appearance of the intracranial vessels is similar to prior exam . IMPRESSION: 1. No acute intracranial findings. 2. Unremarkable CTA of the head. No change in slight prominence of the right MCA trifurcation since C TA of April 30, 2013. No saccular aneurysm. No abrupt vessel cut. Electronically signed by: Aston Dougherty M.D. 05/11/2018 11:21 AM
--- NOTE | 2018-05-11 11:55 | CT Scan Report ---
CT ANGIOGRAPHY OF THE CHEST, PULMONARY EMBOLUS PROTOCOL CLINICAL HISTORY: Shortness of breath. Evaluate for pulmonary embolus. COMPARISON STUDY: Chest CT May 15, 2017. Chest radiograph performed earlier today. TECHNIQUE: Following IV administration of 119 mL of Optiray-320, helical axial images of the chest we re obtained utilizing the pulmonary embolus protocol. Maximal intensity projections and sagittal and coronal reformats were viewed on an independent 3D workstation. IV contrast was administered withou t complication. Automated exposure control was utilized for the study. A dose lowering technique wa s utilized adhering to the principles of ALARA. FINDINGS: No pulmonary emboli are identified. There is no thoracic aortic dissection. No enlarged th oracic lymph nodes are present. A small hiatal hernia is present. Linear opacities reflect atelectasi s. There is no consolidation. No pneumothorax or pleural effusions are noted. There is minimal tree-i n-bud opacity within the left lung apex. Bony thorax is unremarkable as is the upper abdomen. IMPRESSION: 1. No pulmonary emboli identified. 2. No consolidation. Linear opacities scattered throughout the lungs suggestive of atelectasis. Electronically signed by: Aston Dougherty M.D. 05/11/2018 11:54 AM
[2018-05-11] MEDS ORDERED: METOPROLOL TARTRATE 25 MG TAB PO ONE (17:00)
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
[2018-05-11] MEDS ORDERED: NITROGLYCERIN SL 0.4 MG/TAB TAB SL PRN (18:59)
[2018-05-11] MEDS ORDERED: NITROGLYCERIN SL 0.4 MG/TAB TAB ONE (19:00)
[2018-05-11] MEDS: NITROGLYCERIN 2% OINTMENT 30GM TUBE EXT SCH (19:32)
[2018-05-11] MEDS: ALPRAZolam 0.5 MG TABLET PO SCH (20:25)
[2018-05-11] MEDS: PARoxetine HCl 20 MG TAB PO SCH (20:26)
[2018-05-11] MEDS: ROSUVASTATIN CALCIUM 10 MG TAB PO SCH (20:26)
[2018-05-11] MEDS: LISINOPRIL 10 MG TAB PO SCH (20:27)
[2018-05-11] MEDS ORDERED: OLANZapine 10 MG/2.1 ML SDV IM PRN (22:16)
[2018-05-11] MEDS ORDERED: OLANZapine 10 MG/2.1 ML SDV IM ONE (22:30)
[2018-05-11] MEDS ORDERED: OLANZapine 10 MG/2.1 ML SDV IM STA (22:50)
[2018-05-11] MEDS ORDERED: NICOTINE POLACRILEX 2 MG GUM MT PRN (22:51)
[2018-05-12] MEDS: NITROGLYCERIN 2% OINTMENT 30GM TUBE EXT SCH ×4 (00:50→17:20)
[2018-05-12] MEDS: LEVALBUTEROL 1.25MG/0.5ML NEB INH SCH ×6 (03:13→23:25)
[2018-05-12] MEDS: IPRATROPIUM BROMIDE NEB SOLN 0.02% 2.5 ML VIAL INH SCH ×6 (03:13→23:25)
[2018-05-12 07:08] LABS: Partial Thromboplastin Ratio 3.6
[2018-05-12 07:29] LABS: Partial Thromboplastin Time 94.7 Seconds (21.0-31.0)
[2018-05-12] MEDS: cefTRIAXone SODIUM 1,000 MG/50 ML BAG IV SCH (08:58)
[2018-05-12] MEDS: methylPREDNISolone 40 MG in SYRINGE 0 ML IV SCH ×2 (08:59→21:34)
[2018-05-12] MEDS: ASPIRIN 81 MG ECTAB PO SCH (08:59)
[2018-05-12] MEDS: CLOPIDOGREL BISULFATE 75 MG TAB PO SCH (09:00)
[2018-05-12] MEDS ORDERED: METOPROLOL TARTRATE 25 MG TAB PO SCH (09:00)
[2018-05-12] MEDS: NICOTINE 21 MG/24 HR TDSY TD SCH (09:00)
[2018-05-12] MEDS: AZITHROMYCIN 500 MG in DEXTROSE 5% 250 ML IV SCH (09:01)
[2018-05-12 09:13] LABS: Calcium 8.3 mg/dl (8.5-10.1); Creatinine Clr Calc Pharmacy 75.2 ml/min; Est GFR (African American) 81.7; Est GFR (Non-African American) 70.4; Potassium 4.3 mmol/L (3.5-5.1)
[2018-05-12 09:19] LABS: Troponin I 0.938 ng/ml (0-0.045)
--- NOTE | 2018-05-12 12:00 | Cardiology Progress Note ---
Date of Service May 12, 2018 Assessment & Plan (1) NSTEMI (non-ST elevated myocardial infarction): As mentioned above the events of last night with EKG changes are of concern despite cardiac markers decreasing. I think prior to discharge she will require cardiac catheterization. I would like to have her exacerbation of COPD and pneumonia further treated before we proceed. I will reevaluate her tomorrow. If she continues to improve then we may consider trying for Sunday. Of course if she has additional chest pain or becomes unstable then we will proceed earlier. So far she is doing well and has not had a real chest pain since we started her on nitro paste yesterday. The psychiatry consult is appreciated. (2) COPD exacerbation: (3) Pneumonia: (4) Acute respiratory failure with hypoxia: (5) Tobacco abuse: Subjective The patient's cardiac markers have been trending down since her peak 2 days ago. Unfortunately, she did have additional chest pain last night which was relieved with one sublingual nitroglycerin. The EKG during this event however, is concerning with T wave inversions in the inferior leads suggesting ischemia. The psychiatry consult is appreciated. Physical Exam 2 Vital Signs (Past 24 Hours): Last Vital Signs Temp 36.8 C 05/12/18 11:28 Pulse 56 L 05/12/18 11:28 Resp 18 05/12/18 11:28 BP 102/53 L 05/12/18 11:28 Pulse Ox 94 05/12/18 11:28 Physical Exam: General: no acute distress and stated age Head: normocephalic, no masses, lesions, tenderness or abnormalities Eyes: conjunctiva are pink and non-injected, sclera clear Neck: supple, no adenopathy, no bruits, normal jugular venous pulse, no hepatojugular reflux Chest: normal shape and normal respiratory effort Lungs: clear to auscultation and percussion Cardiac Exam: - regular rate & rhythm, no murmurs gallops or rubs - normal S1, normal S2 Pulses: 2(+) throughout Abdomen: abdomen soft, non-tender, no abnormal masses and no hepatosplenomegaly Musculoskeletal: no gait disturbance, no joint inflammation, no deforming arthritis Extremities: no edema and no cyanosis Neuro: grossly normal exam Results & Data Laboratory Results Laboratory Results - last 24 hr 05/12/18 05/12/18 06:04 06:04 APTT 94.7 H* PTT Ratio 3.6 Sodium 142 Potassium 4.3 Chloride 104 Carbon Dioxide 34 H Anion Gap 4.0 BUN 24 H D Creatinine 0.83 Est Cr Clr Drug Dosing 75.2 Est GFR ( Amer) 81.7 Est GFR (Non-Af Amer) 70.4 BUN/Creatinine Ratio 29.0 H Glucose 143 H Calcium 8.3 L Troponin I 0.938 H* Medications Administered Current Inpatient Medications Acetaminophen (Tylenol) 650 mg PO Q4H PRN PRN Reason: Pain or Fever Stop: 06/09/18 11:17 Alprazolam (Xanax) 1.5 mg PO QPM [facility] Stop: 06/09/18 20:59 Last Admin: 05/11/18 20:25 Dose: 1.5 mg Amlodipine Besylate (Norvasc) 2.5 mg PO DAILY PRN PRN Reason: Hypertension Stop: 06/09/18 18:38 Aspirin (Ecotrin Ectab) 81 mg PO DAILY [facility] Stop: 06/10/18 08:59 Last Admin: 05/12/18 08:59 Dose: 81 mg Clopidogrel Bisulfate (Plavix) 75 mg PO QAM [facility] Stop: 06/10/18 08:59 Last Admin: 05/12/18 09:00 Dose: 75 mg Azithromycin 500 mg/ Dextrose 255 mls @ 125 mls/hr IV DAILY [facility] Stop: 05/17/18 10:14 Last Infusion: 05/12/18 11:07 Dose: Infused Ceftriaxone Sodium (Rocephin) 1,000 mg in 50 mls @ 100 mls/hr IV DAILY [facility] Stop: 05/17/18 10:14 Last Infusion: 05/12/18 10:30 Dose: Infused Heparin Sodium/Dextrose (Heparin Sodium/Dextrose) 25,000 units in 500 mls @ 25 mls/hr IV .[id number] [facility]; Protocol Stop: 06/10/18 01:00 Last Titration: 05/12/18 07:31 Dose: 1,250 units/hr, 25 mls/hr Methylprednisolone 40 mg/ (Syringe) 0.64 mls @ 1.5 mls/min IV Q12H [facility] Stop: 06/11/18 20:59 Ioversol (Optiray 320 125ml) 119 ml IV ONCE PRN PRN Reason: Interaction Checking Stop: 05/14/18 23:21 Last Admin: 05/10/18 23:22 Dose: 119 ml Ipratropium [place] (Atrovent 0.02% 0.5mg/2.5ml) 0.5 mg INH Q4R [facility] Stop: 06/09/18 15:59 Last Admin: 05/12/18 11:17 Dose: 0.5 mg Levalbuterol HCl (Xopenex 1.25mg/0.5ml Neb) 1.25 mg INH Q4R [facility] Stop: 06/09/18 15:59 Last Admin: 05/12/18 11:17 Dose: 1.25 mg Lisinopril (Zestril) 10 mg PO QPM [facility] Stop: 06/09/18 16:44 Last Admin: 05/11/18 20:27 Dose: 10 mg Miscellaneous (Remove Nicoderm Patch) 1 ea N/A HS [facility] Stop: 06/09/18 20:59 Last Admin: 05/11/18 20:26 Dose: Not Given Nicotine (Nicoderm Cq) 21 mg TD QAM [facility] Stop: 06/09/18 16:44 Last Admin: 05/12/18 09:00 Dose: 21 mg Nicotine Polacrilex (Nicorette 2mg) 1 piece MT Q1H PRN PRN Reason: smoking urge Stop: 06/10/18 22:50 Nitroglycerin (Nitrostat) 0.4 mg SL UD PRN PRN Reason: Chest Pain Stop: 06/10/18 18:58 Nitroglycerin (Nitro-Bid 2%) 0.5 inch EXT Q6H [facility] Stop: 06/10/18 19:14 Last Admin: 05/12/18 07:17 Dose: Not Given Olanzapine (Zyprexa) 2.5 mg IM Q4H PRN PRN Reason: Anxiety/Agitation Stop: 06/10/18 22:15 Ondansetron HCl (Zofran) 4 mg IV Q6H PRN PRN Reason: Nausea Stop: 06/09/18 11:17 Last Admin: 05/11/18 18:54 Dose: 4 mg Paroxetine HCl (Paxil) 60 mg PO HS [facility] Stop: 06/09/18 20:59 Last Admin: 05/11/18 20:26 Dose: 60 mg Rosuvastatin Calcium (Crestor) 10 mg PO HS [facility] Stop: 06/09/18 20:59 Last Admin: 05/11/18 20:26 Dose: 10 mg Sumatriptan Succinate (Imitrex) 100 mg PO UD PRN PRN Reason: Migraine Headache Stop: 06/09/18 12:29 Last Admin: 05/10/18 13:30 Dose: 100 mg
[2018-05-12] MEDS: HEPARIN STANDARD DEXTROSE 25,000 UNITS/500 ML IV SCH (12:20)
--- NOTE | 2018-05-12 12:39 | Psychiatric Progress Note ---
Date of Service May 12, 2018 Impression / Recommendations Impression Patient demonstrated some impulsivity and mild agitation overnight receiving IM olanzapine 2.5 mg x2. Still cannot r/o possibility of waxing and waning mental status assoc w/ delirium. This morning she appears notably more relaxed, at ease , and less preoccupied with delusional thought content. While the olanzapine is not preferred from a metabolic standpoint, it does have a low risk for QTc prolongation and will continue olanzapine at 2.5 mg p.o. nightly for now to temporize her delusions, reduce anxiety, and prophylax against impulsive or agitated behaviors to improve her safety here in the hospital. Patient was ultimately agreeable to allowing us to talk with her son in her presence when he visits today and hopefully this will help to clarify her diagnosis as it remains unclear if her delusions are long-standing and chronic or a more recent development which might suggest an organic etiology or possibly associated with worsening depression however this is not typical for the psychosis associated with depression. At the present time it remains unclear if she will require long-term treatment with an antipsychotic. We again reviewed some of the common risks and benefits associated with olanzapine and she will require monitoring for EPS/tardive dyskinesia, and potential metabolic side effects. 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 nightly for now. Will schedule olanzapine at dinnertime as she is taking standing benzodiazepine at at bedtime. If she ultimately remains on the antipsychotic, future consideration to optimize sedating effect of the antipsychotic at bedtime may provide opportunity to wean her from the Xanax - will attempt to expand database w/ son today as able (2) Depression: 05/12 -affect brighter and more at ease today. Possibly associated with olanzapine treatment last evening. Olanzapine is FDA approved for augmentation of antidepressants and she may glean some mood benefit from this medication (3) Generalized anxiety disorder: (4) Bereavement: Risk Factors Assessment Do You Have Access To A Gun?: No Interval History Chief Complaint "They thought I had another heart attack but I feel a lot better". Review of Systems Notes Chest pain resolved. Denies hallucinations overnight or presently. Denies confusion. Subjective Subjective Patient was seen & assessed and interval progress reviewed with treatment team. Patient had a bit of an uneventful night with some mild agitation resulting in IM olanzapine 2.5 mg x2. It appears her attempt to leave the unit was motivated by a desire to smoke. She is provided with nicotine supplementation. Patient has also complained of recurrence of chest pain and it appears she may require cardiac catheterization within the next few days. At times her QTc interval has been above 500. On interview this morning the patient demonstrates a more relaxed demeanor and smiles more easily. She frames her behavior last night as "just something I do when I am in the hospital. I try to escape so that I can smoke." She indicates that she would have returned after her smoke. She acknowledges that smoking is counterproductive to her medical health and agrees that she should consider quitting while in the hospital and receiving nicotine supplementation. She smokes 1 pack/day at home. She is fully oriented. She demonstrates mildly delayed retrieval at times and calculation is a little imprecise and she requires 2 attempts to correctly spell world backwards. She does not spontaneously demonstrate paranoia during interview today and she does not spontaneously disclose concerns regarding her delusional persecutory beliefs. She is aware that she may require a catheterization and appears resigned to the need for additional medical workup. Physical Exam Psychiatric Orientation: alert, oriented x 3 and cooperative Apperance: + disheveled She is laying with her head at the foot of her bed Eye Contact: + fair eye contact Motor Behavior: + psychomotor retardation Speech: normal rate/rhythm/volume of speech (More spontaneous today) Affect: no depressed affect (Affect is a little brighter and more at ease today) "Better" Thought Process: thought association intact (She is seemingly less delusionally preoccupied and perseverative this morning) She does not spontaneously disclose paranoid ideation apart from wariness regarding contact with son Hallucinations: no auditory hallucinations and no visual hallucinations Cognition: language grossly intact Insight: + limited insight Judgement: + limited judgement Vital Signs (Past 24 Hours) Last Vital Signs Temp 36.8 C 05/12/18 11:28 Pulse 56 L 05/12/18 11:28 Resp 18 05/12/18 11:28 BP 102/53 L 05/12/18 11:28 Pulse Ox 94 05/12/18 11:28 Results & Data Laboratory Results Laboratory Results - last 24 hr 05/12/18 05/12/18 06:04 06:04 APTT 94.7 H* PTT Ratio 3.6 Sodium 142 Potassium 4.3 Chloride 104 Carbon Dioxide 34 H Anion Gap 4.0 BUN 24 H D Creatinine 0.83 Est Cr Clr Drug Dosing 75.2 Est GFR ( Amer) 81.7 Est GFR (Non-Af Amer) 70.4 BUN/Creatinine Ratio 29.0 H Glucose 143 H Calcium 8.3 L Troponin I 0.938 H* Current Inpatient Medications Current Inpatient Medications: Current Inpatient Medications Acetaminophen (Tylenol) 650 mg PO Q4H PRN PRN Reason: Pain or Fever Stop: 06/09/18 11:17 Alprazolam (Xanax) 1.5 mg PO QPM [facility] Stop: 06/09/18 20:59 Last Admin: 05/11/18 20:25 Dose: 1.5 mg Amlodipine Besylate (Norvasc) 2.5 mg PO DAILY PRN PRN Reason: Hypertension Stop: 06/09/18 18:38 Aspirin (Ecotrin Ectab) 81 mg PO DAILY [facility] Stop: 06/10/18 08:59 Last Admin: 05/12/18 08:59 Dose: 81 mg Clopidogrel Bisulfate (Plavix) 75 mg PO QAM [facility] Stop: 06/10/18 08:59 Last Admin: 05/12/18 09:00 Dose: 75 mg Azithromycin 500 mg/ Dextrose 255 mls @ 125 mls/hr IV DAILY [facility] Stop: 05/17/18 10:14 Last Infusion: 05/12/18 11:07 Dose: Infused Ceftriaxone Sodium (Rocephin) 1,000 mg in 50 mls @ 100 mls/hr IV DAILY [facility] Stop: 05/17/18 10:14 Last Infusion: 05/12/18 10:30 Dose: Infused Heparin Sodium/Dextrose (Heparin Sodium/Dextrose) 25,000 units in 500 mls @ 25 mls/hr IV .[id number] [facility]; Protocol Stop: 06/10/18 01:00 Last Titration: 05/12/18 07:31 Dose: 1,250 units/hr, 25 mls/hr Methylprednisolone 40 mg/ (Syringe) 0.64 mls @ 1.5 mls/min IV Q12H [facility] Stop: 06/11/18 20:59 Ioversol (Optiray 320 125ml) 119 ml IV ONCE PRN PRN Reason: Interaction Checking Stop: 05/14/18 23:21 Last Admin: 05/10/18 23:22 Dose: 119 ml Ipratropium Adona (Atrovent 0.02% 0.5mg/2.5ml) 0.5 mg INH Q4R [facility] Stop: 06/09/18 15:59 Last Admin: 05/12/18 11:17 Dose: 0.5 mg Levalbuterol HCl (Xopenex 1.25mg/0.5ml Neb) 1.25 mg INH Q4R [facility] Stop: 06/09/18 15:59 Last Admin: 05/12/18 11:17 Dose: 1.25 mg Lisinopril (Zestril) 10 mg PO QPM [facility] Stop: 06/09/18 16:44 Last Admin: 05/11/18 20:27 Dose: 10 mg Miscellaneous (Remove Nicoderm Patch) 1 ea N/A HS [facility] Stop: 06/09/18 20:59 Last Admin: 05/11/18 20:26 Dose: Not Given Nicotine (Nicoderm Cq) 21 mg TD QAM [facility] Stop: 06/09/18 16:44 Last Admin: 05/12/18 09:00 Dose: 21 mg Nicotine Polacrilex (Nicorette 2mg) 1 piece MT Q1H PRN PRN Reason: smoking urge Stop: 06/10/18 22:50 Nitroglycerin (Nitrostat) 0.4 mg SL UD PRN PRN Reason: Chest Pain Stop: 06/10/18 18:58 Nitroglycerin (Nitro-Bid 2%) 0.5 inch EXT Q6H [facility] Stop: 06/10/18 19:14 Last Admin: 05/12/18 12:14 Dose: Not Given Olanzapine (Zyprexa) 2.5 mg IM Q4H PRN PRN Reason: Anxiety/Agitation Stop: 06/10/18 22:15 Ondansetron HCl (Zofran) 4 mg IV Q6H PRN PRN Reason: Nausea Stop: 06/09/18 11:17 Last Admin: 05/11/18 18:54 Dose: 4 mg Paroxetine HCl (Paxil) 60 mg PO [facility] Stop: 06/09/18 20:59 Last Admin: 05/11/18 20:26 Dose: 60 mg Rosuvastatin Calcium (Crestor) 10 mg PO HS [facility] Stop: 06/09/18 20:59 Last Admin: 05/11/18 20:26 Dose: 10 mg Sumatriptan Succinate (Imitrex) 100 mg PO UD PRN PRN Reason: Migraine Headache Stop: 06/09/18 12:29 Last Admin: 05/10/18 13:30 Dose: 100 mg CPT Code CPT Code 44287
[2018-05-12 15:30] LABS: Partial Thromboplastin Ratio 2.7
[2018-05-12] MEDS: OLANZAPINE 2.5 MG TAB PO SCH (16:10)
[2018-05-12 16:21] LABS: Partial Thromboplastin Time 69.5 Seconds (21.0-31.0)
--- NOTE | 2018-05-12 16:24 | Hospitalist Progress Note ---
Date of Service May 12, 2018 Assessment & Plan (1) Acute respiratory failure with hypoxia: (2) COPD exacerbation: (3) Pneumonia: -admit to tele -Patient presenting from home with reports of worsening cough and shortness of breath x 1 week -In the ED, hypoxic on room air at 87%, CXR showing left basilar opacity suggestive of pneumonia -WBC 11K, mildly tachycardic (tachycardia likely due to neb/resp distress); BP stable, afebrile, lactic acid 1.6 - wheezing resolving - continue Ceftri, Azithro Nebs Solumedrol --> taper down to q12h - wean off O2 - may benefit from Advair smoking cessation counselling (4) Abnormal EKG: (5) Elevated troponin: NSTEMI -of note, patient was evaluated by cardiology as an outpatient one month ago and was advised a stress test however patient no-showed for the appt; would not advise stress testing at this time due to acute illness however do recommend close outpatient follow up - troponin trending down EKG inverted t waves anterior leads and inferior leads--> improved today -- continue Heparin continue Nitropaste Metoprolol discontinued due to bradycardia already on ASA, Crestor CT angio head ordered to evaluate vascular ectasia noted in 2013: unchanged -- plan for possible Cardiac Cath on (6) Hypertension: Nitropaste added BP improved continue Lisinopril monitor (7) Atrial flutter: -s/p ablation -currently in NSR -was advised by cardio to stop rate controlling meds due to bradycardia, anticoagulation also no longer indicated (8) Tobacco abuse: -nicotine patch -patient counseled regarding tobacco cessation (9) Anxiety: -continue Xanax and paroxetine - feels anxious, hypervigilant all the time 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 - Psych consulted - Zyprexa HS ordered - monitor response (10) DVT prophylaxis: on Heparin drip Disposition pending anticipate d/c home when medically stable Subjective ff up for copd exacerbation, NSTEMI required Zyprexa overnight for agitation seen resting in bed, sitting up comfortable RN at bedside throughout whole encounter in good spirits states she feels better today chest pain free breathing and cough continues to improve states mood is fine, denies anxiety no other symptoms Physical Exam 2 Vital Signs (Past 24 Hours): Last Vital Signs Temp 36.8 C 05/12/18 11:28 Pulse 63 05/12/18 15:12 Resp 18 05/12/18 15:12 BP 102/53 L 05/12/18 11:28 Pulse Ox 94 05/12/18 15:12 Physical Exam: General- oriented x 2, not in distress, speaks in sentences with no effort or accessory muscle use Eyes- anicteric Neck- no JVD Lungs- diminished breath sounds but clear bilaterally no wheezing/rhonchi Heart- normal rate, regular rhythm; no murmurs Abdomen- normal bowel sounds, nondistended, soft, nontender Extremities- no pretibial edema, no calf tenderness Neuro- alert, oriented x 2; no gross focal neurologic deficits Skin- warm & dry Results & Data Laboratory Results Laboratory Results - last 24 hr 05/12/18 05/12/18 06:04 06:04 APTT 94.7 H* PTT Ratio 3.6 Sodium 142 Potassium 4.3 Chloride 104 Carbon Dioxide 34 H Anion Gap 4.0 BUN 24 H D Creatinine 0.83 Est Cr Clr Drug Dosing 75.2 Est GFR ( Amer) 81.7 Est GFR (Non-Af Amer) 70.4 BUN/Creatinine Ratio 29.0 H Glucose 143 H Calcium 8.3 L Troponin I 0.938 H*
[2018-05-12] MEDS: ROSUVASTATIN CALCIUM 10 MG TAB PO SCH (21:32)
[2018-05-12] MEDS: PARoxetine HCl 20 MG TAB PO SCH (21:33)
[2018-05-12] MEDS: ALPRAZolam 0.5 MG TABLET PO SCH (21:34)
[2018-05-12] MEDS: LISINOPRIL 10 MG TAB PO SCH (21:35)
[2018-05-13] MEDS: NITROGLYCERIN 2% OINTMENT 30GM TUBE EXT SCH ×4 (00:41→20:05)
[2018-05-13] MEDS: LEVALBUTEROL 1.25MG/0.5ML NEB INH SCH ×5 (03:21→19:33)
[2018-05-13] MEDS: IPRATROPIUM BROMIDE NEB SOLN 0.02% 2.5 ML VIAL INH SCH ×5 (03:22→19:33)
[2018-05-13 05:49] LABS: Hematocrit (blood only) 45.9 % (37-47); Hemoglobin 14.7 g/dL (12.0-16.0); Mean Corpuscular Volume 101.3 fL (80-100); Mean Platelet Volume 9.9 fL (7.4-10.4); Platelet Count 219 K/uL (130-400); RDW Coefficient of Variation 14.5 % (11.5-14.5); RDW Standard Deviation 53.9 fL (36.4-46.3); Red Blood Count 4.53 M/uL (4.2-5.4); White Blood Count 9.46 K/uL (4.8-10.8)
[2018-05-13 06:18] LABS: BUN Creatinine Ratio 35.4 (10-20); Calcium 7.9 mg/dl (8.5-10.1); Creatinine Clr Calc Pharmacy 80.9 ml/min; Est GFR (African American) 89.4; Est GFR (Non-African American) 77.1; Potassium 4.5 mmol/L (3.5-5.1)
[2018-05-13 06:27] LABS: Partial Thromboplastin Ratio 3.1
[2018-05-13] MEDS: HEPARIN STANDARD DEXTROSE 25,000 UNITS/500 ML IV SCH (07:28)
[2018-05-13] MEDS: NICOTINE 21 MG/24 HR TDSY TD SCH (07:30)
[2018-05-13] MEDS: CLOPIDOGREL BISULFATE 75 MG TAB PO SCH (07:31)
[2018-05-13] MEDS: methylPREDNISolone 40 MG in SYRINGE 0 ML IV SCH ×2 (07:32→20:07)
[2018-05-13] MEDS: ASPIRIN 81 MG ECTAB PO SCH (07:32)
[2018-05-13] MEDS: cefTRIAXone SODIUM 1,000 MG/50 ML BAG IV SCH (07:32)
--- NOTE | 2018-05-13 09:44 | Cardiology Progress Note ---
Date of Service May 13, 2018 Assessment & Plan (1) NSTEMI (non-ST elevated myocardial infarction): The patient's pneumonia and COPD have improved. 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 At this point I recommended that we proceed with a cardiac catheterization. I explained the risk benefit and intent of the procedure to her including the potential for a catheter-based intervention. She is understanding and willing to proceed. We will performed this study later today. (2) COPD exacerbation: (3) Pneumonia: (4) Acute respiratory failure with hypoxia: (5) Tobacco abuse: Subjective The patient had an uneventful night. No additional chest pain. Physical Exam 2 Vital Signs (Past 24 Hours): Last Vital Signs Temp 37.0 C 05/13/18 07:43 Pulse 64 05/13/18 08:00 Resp 20 05/13/18 07:43 BP 114/54 L 05/13/18 07:43 Pulse Ox 96 05/13/18 07:43 Physical Exam: General: no acute distress and stated age Head: normocephalic, no masses, lesions, tenderness or abnormalities Eyes: conjunctiva are pink and non-injected, sclera clear Neck: supple, no adenopathy, no bruits, normal jugular venous pulse, no hepatojugular reflux Chest: normal shape and normal respiratory effort Lungs: clear to auscultation and percussion Cardiac Exam: - regular rate & rhythm, no murmurs gallops or rubs - normal S1, normal S2 Pulses: 2(+) throughout Abdomen: abdomen soft, non-tender, no abnormal masses and no hepatosplenomegaly Musculoskeletal: no gait disturbance, no joint inflammation, no deforming arthritis Extremities: no edema and no cyanosis Neuro: grossly normal exam Results & Data Laboratory Results Laboratory Results - last 24 hr 05/12/18 05/13/18 05/13/18 14:46 05:26 05:26 WBC 9.46 RBC 4.53 Hgb 14.7 Hct 45.9 MCV 101.3 H MCH 32.5 MCHC 32.0 RDW Std Deviation 53.9 H RDW Coeff of Bryan 14.5 Plt Count 219 MPV 9.9 APTT 69.5 H* PTT Ratio 2.7 Sodium 141 Potassium 4.5 Chloride 104 Carbon Dioxide 34 H Anion Gap 3.0 BUN 27 H Creatinine 0.77 Est Cr Clr Drug Dosing 80.9 Est GFR ( Amer) 89.4 Est GFR (Non-Af Amer) 77.1 BUN/Creatinine Ratio 35.4 H Glucose 150 H Calcium 7.9 L 05/13/18 05:26 WBC RBC Hgb Hct MCV MCH MCHC RDW Std Deviation RDW Coeff of Bryan Plt Count MPV APTT 80.0 H* PTT Ratio 3.1 Sodium Potassium Chloride Carbon Dioxide Anion Gap BUN Creatinine Est Cr Clr Drug Dosing Est GFR ( Amer) Est GFR (Non-Af Amer) BUN/Creatinine Ratio Glucose Calcium Medications Administered Current Inpatient Medications Acetaminophen (Tylenol) 650 mg PO Q4H PRN PRN Reason: Pain or Fever Stop: 06/09/18 11:17 Alprazolam (Xanax) 1.5 mg PO QPM [facility] Stop: 06/09/18 20:59 Last Admin: 05/12/18 21:34 Dose: 1.5 mg Amlodipine Besylate (Norvasc) 2.5 mg PO DAILY PRN PRN Reason: Hypertension Stop: 06/09/18 18:38 Aspirin (Ecotrin Ectab) 81 mg PO DAILY [facility] Stop: 06/10/18 08:59 Last Admin: 05/13/18 07:32 Dose: 81 mg Clopidogrel Bisulfate (Plavix) 75 mg PO QAM [facility] Stop: 06/10/18 08:59 Last Admin: 05/13/18 07:31 Dose: 75 mg Azithromycin 500 mg/ Dextrose 255 mls @ 125 mls/hr IV DAILY [facility] Stop: 05/17/18 10:14 Last Infusion: 05/12/18 11:07 Dose: Infused Ceftriaxone Sodium (Rocephin) 1,000 mg in 50 mls @ 100 mls/hr IV DAILY [facility] Stop: 05/17/18 10:14 Last Infusion: 05/13/18 08:06 Dose: Infused Methylprednisolone 40 mg/ (Syringe) 0.64 mls @ 1.5 mls/min IV Q12H [facility] Stop: 06/11/18 20:59 Last Admin: 05/13/18 07:32 Dose: 1.5 mls/min Sodium Chloride (Nss 1000ml) 1,000 mls @ 1 mls/hr IV .Q24H [facility] Stop: 06/12/18 09:44 Ioversol (Optiray 320 125ml) 119 ml IV ONCE PRN PRN Reason: Interaction Checking Stop: 05/14/18 23:21 Last Admin: 05/10/18 23:22 Dose: 119 ml Ipratropium Kamas (Atrovent 0.02% 0.5mg/2.5ml) 0.5 mg INH Q4R [facility] Stop: 06/09/18 15:59 Last Admin: 05/13/18 07:01 Dose: 0.5 mg Levalbuterol HCl (Xopenex 1.25mg/0.5ml Neb) 1.25 mg INH Q4R [facility] Stop: 06/09/18 15:59 Last Admin: 05/13/18 07:01 Dose: 1.25 mg Lisinopril (Zestril) 10 mg PO QPM [facility] Stop: 06/09/18 16:44 Last Admin: 05/12/18 21:35 Dose: 10 mg Miscellaneous (Remove Nicoderm Patch) 1 ea N/A HS [facility] Stop: 06/09/18 20:59 Last Admin: 05/12/18 21:34 Dose: Not Given Nicotine (Nicoderm Cq) 21 mg TD QAM [facility] Stop: 06/09/18 16:44 Last Admin: 05/13/18 07:30 Dose: 21 mg Nicotine Polacrilex (Nicorette 2mg) 1 piece MT Q1H PRN PRN Reason: smoking urge Stop: 06/10/18 22:50 Nitroglycerin (Nitrostat) 0.4 mg SL UD PRN PRN Reason: Chest Pain Stop: 06/10/18 18:58 Nitroglycerin (Nitro-Bid 2%) 0.5 inch EXT Q6H [facility] Stop: 06/10/18 19:14 Last Admin: 05/13/18 08:59 Dose: Not Given Olanzapine (Zyprexa) 2.5 mg IM Q4H PRN PRN Reason: Anxiety/Agitation Stop: 06/10/18 22:15 Olanzapine (Zyprexa) 2.5 mg PO QDD [facility] Stop: 06/11/18 16:29 Last Admin: 05/12/18 16:10 Dose: 2.5 mg Ondansetron HCl (Zofran) 4 mg IV Q6H PRN PRN Reason: Nausea Stop: 06/09/18 11:17 Last Admin: 05/11/18 18:54 Dose: 4 mg Paroxetine HCl (Paxil) 60 mg PO HS [facility] Stop: 06/09/18 20:59 Last Admin: 05/12/18 21:33 Dose: 60 mg Rosuvastatin Calcium (Crestor) 10 mg PO HS [facility] Stop: 06/09/18 20:59 Last Admin: 05/12/18 21:32 Dose: 10 mg Sumatriptan Succinate (Imitrex) 100 mg PO UD PRN PRN Reason: Migraine Headache Stop: 06/09/18 12:29 Last Admin: 05/10/18 13:30 Dose: 100 mg
[2018-05-13] MEDS ORDERED: SODIUM CHLORIDE 0.9% 1000ML 1,000 ML IV SCH (09:45)
[2018-05-13] MEDS: AZITHROMYCIN 500 MG in DEXTROSE 5% 250 ML IV SCH (09:46)
--- NOTE | 2018-05-13 11:46 | Psychiatric Progress Note ---
Date of Service May 13, 2018 Impression / Recommendations Impression Although there may be a component of delirium affecting her symptoms and behavior here, the patient's son reports several year history of a false, fixed belief that her assistant prosecuting attorney is stalking her, which has resulted in her remaining in her home when it is dark out, and at times misidentifying her son as the assistant prosecuting attorney when he calls her. She appears to meet criteria for delusional disorder. Olanzapine was started to target delusions, reduce anxiety , and decrease impulsivity and agitation. She will need outpatient psychiatric follow-up as well as therapy. 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 nightly for now. Will schedule olanzapine at dinnertime as she is taking standing benzodiazepine at at bedtime. If she ultimately remains on the antipsychotic, future consideration to optimize sedating effect of the antipsychotic at bedtime may provide opportunity to wean her from the Xanax - will attempt to expand database w/ son today as able 05/13 -son provides information indicating the patient has endorsed false, fixed beliefs for years that her assistant prosecuting attorney has been stalking her, and most appropriate diagnosis at this time is delusional disorder. Continue olanzapine , and refer for outpatient mental health treatment (liaison nurse will assist with referral). The patient's son denies any acute safety concerns, and it appears that she has been functioning safely at home for years despite her delusional thinking. -Agree with Dr. Florence's recommendation to taper off alprazolam, as it may disinhibit her and increases her risk of falls and memory impairment. Present on Admission?: Yes (2) Depression: 05/12 -affect brighter and more at ease today. Possibly associated with olanzapine treatment last evening. Olanzapine is FDA approved for augmentation of antidepressants and she may glean some mood benefit from this medication 05/13 -patient reports mood is improving and more stable. Present on Admission?: Yes (3) Bereavement: 05/13 - Refer for outpatient therapy. Present on Admission?: Yes Risk Factors Assessment Male: No : Yes Do You Have Access To A Gun?: No Health Problems: Yes Mental Health Diagnoses: Yes Substance Use Disorders: No Previous Attempt: No Family History of Suicide: No Previous Psychiatric Hospitalization: No Hopelessness: No Protective Factors Assessment : No Responsible for Young Children: No Employed: No Stable Relationships: Yes Supportive Family: Yes Good Rapport with Provider: Yes Absence of Any Risk Factors Above: Yes (No suicidal or homicidal thoughts, no history of violence or self injury.) Interval History Chief Complaint "I had a question for you, but I forgot what it was". Review of Systems Notes Denies daytime sedation. Reports memory problems. Subjective Subjective Patient was seen & assessed, and chart reviewed. She was seen by Dr. Florence over the weekend, and started on olanzapine, while home doses of alprazolam 1.5 mg daily and paroxetine 60 mg at bedtime were continued. On my assessment today, she states that the olanzapine has been very helpful for sleep , which she describes as "wonderful." This in turn has helped her mood, which she describes as "really level, which is unusual for me." She states that mood is typically "up and down a lot," and is willing to follow up with a psychiatrist and therapist for ongoing treatment as an outpatient. She denies hallucinations and paranoia, and does not voice any delusions during the interview. The psychiatric liaison nurse spoke with her son yesterday for collateral information, who reported that she has a long history of depression and anxiety , as well as prescription medication abuse, which the patient did not want him to discuss further. He also reported that she has voiced a delusion that her assistant prosecuting attorney is stalking her for many years, which has resulted in her refusal to go outside of her house after sunset. At times she believes that her son is a assistant prosecuting attorney when he calls her on the phone. Although he expressed concern about her thinking, he did not feel that she is a danger to herself or others, stated that she completes her ADLs independently, goes out to run errands during the day, and denied any safety concerns with her being discharged home. Physical Exam Psychiatric Orientation: alert and cooperative Apperance: appropriately dressed, appropriately groomed and appeared stated age Eye Contact: + fair eye contact Motor Behavior: no abnormal motor movements Lying in bed, with a stuffed animal next to her. Speech: normal rate/rhythm/volume of speech Affect: euthymic affect and mood congruent with affect Mood: no depressed mood and no anxious mood Thought Process: goal directed thought process Thought Content: reality based without delusions Suicidal Thoughts: denies suicidal thoughts Homicidal Thoughts: denies homicidal thoughts Hallucinations: no auditory hallucinations and no visual hallucinations Cognition: recent memory grossly intact, attention grossly intact and language grossly intact Vital Signs (Past 24 Hours) Last Vital Signs Temp 37.0 C 05/13/18 07:43 Pulse 68 05/13/18 10:58 Resp 16 05/13/18 10:58 BP 114/54 L 05/13/18 07:43 Pulse Ox 93 05/13/18 10:58 Results & Data Laboratory Results Laboratory Results - last 24 hr 05/12/18 05/13/18 05/13/18 14:46 05:26 05:26 WBC 9.46 RBC 4.53 Hgb 14.7 Hct 45.9 MCV 101.3 H MCH 32.5 MCHC 32.0 RDW Std Deviation 53.9 H RDW Coeff of Bryan 14.5 Plt Count 219 MPV 9.9 APTT 69.5 H* PTT Ratio 2.7 Sodium 141 Potassium 4.5 Chloride 104 Carbon Dioxide 34 H Anion Gap 3.0 BUN 27 H Creatinine 0.77 Est Cr Clr Drug Dosing 80.9 Est GFR ( Amer) 89.4 Est GFR (Non-Af Amer) 77.1 BUN/Creatinine Ratio 35.4 H Glucose 150 H Calcium 7.9 L 05/13/18 05:26 WBC RBC Hgb Hct MCV MCH MCHC RDW Std Deviation RDW Coeff of Bryan Plt Count MPV APTT 80.0 H* PTT Ratio 3.1 Sodium Potassium Chloride Carbon Dioxide Anion Gap BUN Creatinine Est Cr Clr Drug Dosing Est GFR ( Amer) Est GFR (Non-Af Amer) BUN/Creatinine Ratio Glucose Calcium Current Inpatient Medications Current Inpatient Medications: Current Inpatient Medications Acetaminophen (Tylenol) 650 mg PO Q4H PRN PRN Reason: Pain or Fever Stop: 06/09/18 11:17 Alprazolam (Xanax) 1.5 mg PO QPM HUSSEIN Stop: 06/09/18 20:59 Last Admin: 05/12/18 21:34 Dose: 1.5 mg Amlodipine Besylate (Norvasc) 2.5 mg PO DAILY PRN PRN Reason: Hypertension Stop: 06/09/18 18:38 Aspirin (Ecotrin Ectab) 81 mg PO DAILY HUSSEIN Stop: 06/10/18 08:59 Last Admin: 05/13/18 07:32 Dose: 81 mg Azithromycin (Zithromax) 500 mg PO DAILY HUSSEIN Stop: 05/16/18 09:01 Clopidogrel Bisulfate (Plavix) 75 mg PO QAM HUSSEIN Stop: 06/10/18 08:59 Last Admin: 05/13/18 07:31 Dose: 75 mg Ceftriaxone Sodium (Rocephin) 1,000 mg in 50 mls @ 100 mls/hr IV DAILY HUSSEIN Stop: 05/17/18 10:14 Last Infusion: 05/13/18 08:06 Dose: Infused Methylprednisolone 40 mg/ (Syringe) 0.64 mls @ 1.5 mls/min IV Q12H HUSSEIN Stop: 06/11/18 20:59 Last Admin: 05/13/18 07:32 Dose: 1.5 mls/min Sodium Chloride (Nss 1000ml) 1,000 mls @ 98 mls/hr IV .[id number] HUSSEIN Stop: 06/12/18 09:44 Ioversol (Optiray 320 125ml) 119 ml IV ONCE PRN PRN Reason: Interaction Checking Stop: 05/14/18 23:21 Last Admin: 05/10/18 23:22 Dose: 119 ml Ipratropium [place] (Atrovent 0.02% 0.5mg/2.5ml) 0.5 mg INH Q4R HUSSEIN Stop: 06/09/18 15:59 Last Admin: 05/13/18 10:56 Dose: 0.5 mg Levalbuterol HCl (Xopenex 1.25mg/0.5ml Neb) 1.25 mg INH Q4R HUSSEIN Stop: 06/09/18 15:59 Last Admin: 05/13/18 10:56 Dose: 1.25 mg Lisinopril (Zestril) 10 mg PO QPM HUSSEIN Stop: 06/09/18 16:44 Last Admin: 05/12/18 21:35 Dose: 10 mg Miscellaneous (Remove Nicoderm Patch) 1 ea N/A HS [facility] Stop: 06/09/18 20:59 Last Admin: 05/12/18 21:34 Dose: Not Given Nicotine (Nicoderm Cq) 21 mg TD QAM HUSSEIN Stop: 06/09/18 16:44 Last Admin: 05/13/18 07:30 Dose: 21 mg Nicotine Polacrilex (Nicorette 2mg) 1 piece MT Q1H PRN PRN Reason: smoking urge Stop: 06/10/18 22:50 Nitroglycerin (Nitrostat) 0.4 mg SL UD PRN PRN Reason: Chest Pain Stop: 06/10/18 18:58 Nitroglycerin (Nitro-Bid 2%) 0.5 inch EXT Q6H HUSSEIN Stop: 06/10/18 19:14 Last Admin: 05/13/18 08:59 Dose: Not Given Olanzapine (Zyprexa) 2.5 mg IM Q4H PRN PRN Reason: Anxiety/Agitation Stop: 06/10/18 22:15 Olanzapine (Zyprexa) 2.5 mg PO QDD HUSSEIN Stop: 06/11/18 16:29 Last Admin: 05/12/18 16:10 Dose: 2.5 mg Ondansetron HCl (Zofran) 4 mg IV Q6H PRN PRN Reason: Nausea Stop: 06/09/18 11:17 Last Admin: 05/11/18 18:54 Dose: 4 mg Paroxetine HCl (Paxil) 60 mg PO HS HUSSEIN Stop: 06/09/18 20:59 Last Admin: 05/12/18 21:33 Dose: 60 mg Rosuvastatin Calcium (Crestor) 10 mg PO HS HUSSEIN Stop: 06/09/18 20:59 Last Admin: 05/12/18 21:32 Dose: 10 mg Sumatriptan Succinate (Imitrex) 100 mg PO UD PRN PRN Reason: Migraine Headache Stop: 06/09/18 12:29 Last Admin: 05/10/18 13:30 Dose: 100 mg CPT Code CPT Code [id number]
[2018-05-13 13:49] LABS: Partial Thromboplastin Time 53.2 Seconds (21.0-31.0)
[2018-05-13] MEDS ORDERED: MIDAZOLAM HCL 1 MG/ML 2ML VIAL ONE (15:19)
[2018-05-13] MEDS ORDERED: HEPARIN (PORCINE) 1000 UNIT/ML 10 ML (CATH LAB USE ONLY) ONE (15:19)
[2018-05-13] MEDS ORDERED: NiCARDipine HCL INJ 2.5 MG/ML 10 ML AMP ONE (15:19)
[2018-05-13] MEDS ORDERED: fentaNYL citrate 100 MCG/2 ML VIAL ONE (15:19)
[2018-05-13] MEDS ORDERED: NITROGLYCERIN/D5W 100MCG/ML 20ML SYR ONE (15:21)
[2018-05-13] MEDS ORDERED: ADENOSINE IV SOLN 3 MG/ML 20 ML VIAL IV ONE (16:19)
--- NOTE | 2018-05-13 16:28 | Cardiac Catheterization ---
Date of Service May 13, 2018 Cardiac Cath Report Cardiac Cath Report History: This is a 72-year-old female with a history of cigarette smoking and previous isthmus ablation for atrial flutter. She presented with respiratory failure due to acute exacerbation of COPD with pneumonia. Her cardiac troponins were elevated after admission. She also had additional chest pain relieved with sublingual nitroglycerin at which time she had EKG changes. Procedure: 1. Coronary angiography Procedure summary: After informed consent was obtained the patient was taken to the cardiac catheterization lab where she was prepped and draped in usual manner for right transradial approach. Preformed 5 Syrian diagnostic catheters were utilized for the coronary angiograms. Following the procedure the patient underwent FFR of the LAD and then was returned to her room in stable condition. ACC data: Start time 1538 End time 1615 Opening aortic pressure 110/72 Closing aortic pressure 122/73 LV pressure�valve not crossed Sedation Versed 1 mg IV IV fluid 32 cc normal saline Contrast 93 cc VIS Fluoroscopy time 3.7 minutes Radiation 1707 mGy The AP 10,000 [id number] AUC score 9 Right dominant system Coronary angiography: Selective injections of the left coronary artery revealed the left main trunk to be widely patent. There is a high ramus branch from the left circumflex artery which is widely patent. The left circumflex artery consists principally of a large lateral marginal branch which supplies the majority of the lateral myocardium. The left circumflex system is widely patent. The LAD system bifurcates distally into 2 almost equal size branches all the way to the apex of the heart. There is a single large first diagonal branch. Just before the takeoff of this diagonal branch there is a 60-70% eccentric stenosis. The remainder of the left anterior descending system is widely patent. Selective injections of the right coronary artery reveal it to be dominant. The right coronary artery is widely patent. Summary: The patient has single-vessel coronary artery disease with a 60-70% proximal eccentric stenosis of the LAD. The remainder the coronary anatomy is widely patent. Recommendations: The case will be reviewed by interventional cardiology for FFR and possible stenting of the LAD.
--- NOTE | 2018-05-13 16:51 | Cardiac Catheterization ---
Cardiac Cath Procedure Full Procedure Date May 13, 2018 Pre-Procedure Diagnosis Pre-Procedure Diagnosis: Non STEMI AUC Score AUC Score: 7 Post-Procedure Diagnosis Post-Procedure Diagnosis: Moderate CAD Procedure(s) Performed Procedure(s) Performed: Fractional Flow [address] Administrative Engineer Khris Yun MD [employer] Worker Helper(s) FFR of mid LAD For full details of patient's coronary angiography please see cath report dictated by Dr. Haynes. Next Briefly, patient found to have a moderate stenosis in a large caliber proximal to mid LAD at the bifurcation of first diagonal. Decision made to proceed with further assessment with FFR. Procedure: �Left main cannulated with EBU 3.5 guide �Straight FFR wire placed into distal LAD �IFR 0.93 �FFR 0.88 �Post procedure angiography revealed no apparent complications Summary: 1. Nonobstructive moderate proximal to mid LAD disease FFR 0.88 Recommendations: Continued ASCVD risk factor modification per Dr. Haynes Estimated Blood Loss Estimated Blood Loss: None Medication(s) Medication(s): Fentanyl, Heparin, Nitroglycerin and Versed Summary of Findings -- Hemodynamics Rest Ao:: 132/68/97 Final Ao: 149/78/110 LV: -- Recommendations Recommendations: Medical Therapy and/or Counseling Specimens Specimens: None Radiation Exposure (mGy) 2098 Contrast (mls) 123 Fluids (cc crystalloids) Fluids (cc crystalloids): 35 Drains Drains: none Anesthesia moderate Procedural Complication(s) None Disposition PCU ACC Data: [place] Cardiac Status Clinical evaluation leading to the procedure CAD Presenation: Non STEMI Anginal Classification: CCS III Heart Failure: No Cardiogenic Shock within 24 Hours: No Cardiac Arrest within 24 Hours: No Imaging Studies Past 6 Months: Yes Stress Studies Past 6 Months: No Diagnostic Physicians Name: Khris Yun MD Status: Elective Closure Device Percutaneous Entry Location: Radial Closure Device: Radial Band Recommendations: Medical Therapy and/or Counseling Intraprocedure Events Significant Disection: No Perforation: No
[2018-05-13] MEDS: OLANZAPINE 2.5 MG TAB PO SCH (17:05)
[2018-05-13] MEDS: SODIUM CHLORIDE 0.9% 1000ML 1,000 ML IV SCH (17:05)
[2018-05-13] MEDS: ROSUVASTATIN CALCIUM 10 MG TAB PO SCH (20:06)
[2018-05-13] MEDS: ALPRAZolam 0.5 MG TABLET PO SCH (20:06)
[2018-05-13] MEDS: PARoxetine HCl 20 MG TAB PO SCH (20:06)
[2018-05-13] MEDS: LISINOPRIL 10 MG TAB PO SCH (20:07)
[2018-05-14] MEDS: NITROGLYCERIN 2% OINTMENT 30GM TUBE EXT SCH ×2 (00:06→08:30)
[2018-05-14] MEDS: LEVALBUTEROL 1.25MG/0.5ML NEB INH SCH ×3 (01:51→14:05)
[2018-05-14] MEDS: IPRATROPIUM BROMIDE NEB SOLN 0.02% 2.5 ML VIAL INH SCH ×3 (01:53→14:05)
--- NOTE | 2018-05-14 03:56 | Hospitalist Progress Note ---
Date of Service May 14, 2018 delayed entry date of service as noted above seen with RN Liset murphy whole encounter Assessment & Plan (1) Acute respiratory failure with hypoxia: (2) COPD exacerbation: (3) Pneumonia: -admit to tele -Patient presenting from home with reports of worsening cough and shortness of breath x 1 week -In the ED, hypoxic on room air at 87%, CXR showing left basilar opacity suggestive of pneumonia -WBC 11K, mildly tachycardic (tachycardia likely due to neb/resp distress); BP stable, afebrile, lactic acid 1.6 - wheezing resolved - continue Ceftri, Azithro Nebs Solumedrol --> tapered down to q12h - wean off O2 smoking cessation counselling (4) Abnormal EKG: (5) Elevated troponin: NSTEMI -of note, patient was evaluated by cardiology as an outpatient one month ago and was advised a stress test however patient no-showed for the appt; would not advise stress testing at this time due to acute illness however do recommend close outpatient follow up - troponin trending down EKG inverted t waves anterior leads and inferior leads--> improved -- placed on Heparin, Nitropaste Metoprolol discontinued due to bradycardia already on ASA, Crestor CT angio head ordered to evaluate vascular ectasia noted in 2013: unchanged -- s/p Cardiac Cath by Dr. Yun Nonobstructive moderate proximal to mid LAD disease FFR 0.88 Recommendations: Continued ASCVD risk factor modification per Dr. Haynes -- chest pain free on ASA, Plavix (6) Hypertension: Nitropaste added BP improved continue Lisinopril monitor (7) Atrial flutter: -s/p ablation -currently in NSR -was advised by cardio to stop rate controlling meds due to bradycardia, anticoagulation also no longer indicated (8) Tobacco abuse: -nicotine patch -patient counseled regarding tobacco cessation (9) Anxiety: -continue Xanax and paroxetine - feels anxious, hypervigilant all the time reports being "stalked" by her stack yield engineer for 15 years - Psych consulted - Zyprexa HS ordered - improving continue to monitor (10) DVT prophylaxis: was on Heparin drip Disposition pending anticipate d/c home when medically stable PT OT Subjective ff up for copd exacerbation, NSTEMI s/p Cardiac cath seen resting in bed, comfortable states she feels continued improvement no dyspnea, less cough no chest pain mood is better, no anxiety/depression no other symptoms Physical Exam 2 Vital Signs (Past 24 Hours): Last Vital Signs Temp 37.0 C 05/14/18 03:51 Pulse 86 05/14/18 03:51 Resp 19 05/14/18 03:51 BP 143/90 H 05/14/18 03:51 Pulse Ox 92 05/14/18 03:51 Physical Exam: General- oriented x 3, not in distress, speaks in sentences with no effort or accessory muscle use Eyes- anicteric Neck- no JVD Lungs- better air entry, no wheezing, rales Heart- normal rate, regular rhythm; no murmurs Abdomen- normal bowel sounds, nondistended, soft, nontender Extremities- no pretibial edema, no calf tenderness Neuro- alert, oriented x 3; no gross focal neurologic deficits Skin- warm & dry Results & Data Laboratory Results Laboratory Results - last 24 hr 05/14/18 05/14/18 05/14/18 05:36 05:36 05:36 APTT 24.0 PTT Ratio 0.9 Sodium 140 Potassium 4.4 Chloride 104 Carbon Dioxide 32 Anion Gap 4.0 BUN 22 H Creatinine 0.69 Est Cr Clr Drug Dosing 90.2 Est GFR ( Amer) 100.8 Est GFR (Non-Af Amer) 87.0 BUN/Creatinine Ratio 31.7 H Glucose 123 H Estimat Average Glucose 134 Hemoglobin A1c 6.3 H Calcium 7.6 L
[2018-05-14] MEDS: SODIUM CHLORIDE 0.9% 1000ML 1,000 ML IV SCH (06:10)
[2018-05-14 06:32] LABS: BUN Creatinine Ratio 31.7 (10-20); Calcium 7.6 mg/dl (8.5-10.1); Creatinine Clr Calc Pharmacy 90.2 ml/min; Est GFR (African American) 100.8; Potassium 4.4 mmol/L (3.5-5.1)
[2018-05-14 06:55] LABS: Partial Thromboplastin Ratio 0.9
[2018-05-14 06:57] LABS: Estimated Average Glucose 134 mg/dl
[2018-05-14] MEDS: cefTRIAXone SODIUM 1,000 MG/50 ML BAG IV SCH (08:29)
[2018-05-14] MEDS: AZITHROMYCIN 250 MG TAB PO SCH (08:29)
[2018-05-14] MEDS: NICOTINE 21 MG/24 HR TDSY TD SCH (08:29)
[2018-05-14] MEDS: CLOPIDOGREL BISULFATE 75 MG TAB PO SCH (08:29)
[2018-05-14] MEDS: ASPIRIN 81 MG ECTAB PO SCH (08:29)
[2018-05-14] MEDS: methylPREDNISolone 40 MG in SYRINGE 0 ML IV SCH ×2 (08:30→21:52)
[2018-05-14] MEDS ORDERED: ISOSORBIDE MONO EXTENDED REL 30 MG TABCR PO ONE (12:44)
[2018-05-14] MEDS ORDERED: AMLODIPINE BESYLATE 5 MG TAB PO PRN (12:44)
--- NOTE | 2018-05-14 12:59 | Cardiology Progress Note ---
Date of Service May 14, 2018 Assessment & Plan (1) NSTEMI (non-ST elevated myocardial infarction): The patient had single-vessel coronary artery disease of proximal or mid LAD. It was tested with an FFR and found not to be hemodynamically non- significant however, given her presentation with elevated troponins and EKG changes she at least has a component coronary spasm. I will change her Nitropaste to isosorbide mononitrate. She will also be started on a calcium channel micky. Her lisinopril will also be increased because of hypertension. Increase her Crestor to a moderate/high dose at 20 mg daily. 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 Subjective No new cardiac complaints today. She does have difficult to control hypertension plan we will make medication adjustments. She will also need to be on a moderate to high dose of statin so I will increase her atorvastatin to 20 mg daily. Her IV fluids can be stopped today. Physical Exam 2 Vital Signs (Past 24 Hours): Last Vital Signs Temp 37 C 05/14/18 11:30 Pulse 68 05/14/18 11:30 Resp 16 05/14/18 11:30 BP 184/90 H 05/14/18 11:57 Pulse Ox 89 L 05/14/18 11:30 Physical Exam: General: no acute distress and stated age Head: normocephalic, no masses, lesions, tenderness or abnormalities Eyes: conjunctiva are pink and non-injected, sclera clear Neck: supple, no adenopathy, no bruits, normal jugular venous pulse, no hepatojugular reflux Chest: normal shape and normal respiratory effort Lungs: clear to auscultation and percussion Cardiac Exam: - regular rate & rhythm, no murmurs gallops or rubs - normal S1, normal S2 Pulses: 2(+) throughout Abdomen: abdomen soft, non-tender, no abnormal masses and no hepatosplenomegaly Musculoskeletal: no gait disturbance, no joint inflammation, no deforming arthritis Extremities: no edema and no cyanosis Neuro: grossly normal exam Results & Data Laboratory Results Laboratory Results - last 24 hr 05/13/18 05/14/18 05/14/18 13:00 05:36 05:36 APTT 53.2 H* 24.0 PTT Ratio 2.0 0.9 Sodium 140 Potassium 4.4 Chloride 104 Carbon Dioxide 32 Anion Gap 4.0 BUN 22 H Creatinine 0.69 Est Cr Clr Drug Dosing 90.2 Est GFR ( Amer) 100.8 Est GFR (Non-Af Amer) 87.0 BUN/Creatinine Ratio 31.7 H Glucose 123 H Estimat Average Glucose Hemoglobin A1c Calcium 7.6 L 05/14/18 05:36 APTT PTT Ratio Sodium Potassium Chloride Carbon Dioxide Anion Gap BUN Creatinine Est Cr Clr Drug Dosing Est GFR ( Amer) Est GFR (Non-Af Amer) BUN/Creatinine Ratio Glucose Estimat Average Glucose 134 Hemoglobin A1c 6.3 H Calcium
[2018-05-14] MEDS: OLANZAPINE 2.5 MG TAB PO SCH (16:51)
[2018-05-14] MEDS ORDERED: LEVALBUTEROL 1.25MG/0.5ML NEB INH PRN (18:57)
[2018-05-14] MEDS ORDERED: IPRATROPIUM BROMIDE NEB SOLN 0.02% 2.5 ML VIAL INH PRN (18:57)
[2018-05-14] MEDS ORDERED: LISINOPRIL 20 MG TAB PO SCH (21:00)
[2018-05-14] MEDS ORDERED: ROSUVASTATIN CALCIUM 20 MG TAB PO SCH (21:00)
[2018-05-14] MEDS: ALPRAZolam 0.5 MG TABLET PO SCH (21:52)
[2018-05-14] MEDS: PARoxetine HCl 20 MG TAB PO SCH (21:54)
[2018-05-15 06:07] LABS: Hemoglobin 14.7 g/dL (12.0-16.0); Mean Corpuscular Hgb Conc 32.7 g/dL (32-36); Mean Corpuscular Volume 99.8 fL (80-100); Mean Platelet Volume 9.8 fL (7.4-10.4); Platelet Count 227 K/uL (130-400); RDW Coefficient of Variation 14.2 % (11.5-14.5); RDW Standard Deviation 52.1 fL (36.4-46.3); Red Blood Count 4.51 M/uL (4.2-5.4); White Blood Count 6.99 K/uL (4.8-10.8)
--- NOTE | 2018-05-15 06:09 | Hospitalist Progress Note ---
Date of Service May 15, 2018 delayed entry date of service 05/14/18 JODI Hutchins at bedside [facility] whole encounter Assessment & Plan (1) Acute respiratory failure with hypoxia: (2) COPD exacerbation: (3) Pneumonia: -admit to tele -Patient presenting from home with reports of worsening cough and shortness of breath x 1 week -In the ED, hypoxic on room air at 87%, CXR showing left basilar opacity suggestive of pneumonia -WBC 11K, mildly tachycardic (tachycardia likely due to neb/resp distress); BP stable, afebrile, lactic acid 1.6 - wheezing resolved - continue Ceftri, Azithro Nebs changed to PRN Solumedrol --> tapered down to q12h--> transition to Prednisone tomorrow - wean off O2 smoking cessation counselling - 2 step walk test prior to discharge (4) Abnormal EKG: (5) Elevated troponin: NSTEMI -of note, patient was evaluated by cardiology as an outpatient one month ago and was advised a stress test however patient no-showed for the appt; would not advise stress testing at this time due to acute illness however do recommend close outpatient follow up - troponin trending down EKG inverted t waves anterior leads and inferior leads--> improved -- placed on Heparin, Nitropaste Metoprolol discontinued due to bradycardia already on ASA, Crestor CT angio head ordered to evaluate vascular ectasia noted in 2013: unchanged -- s/p Cardiac Cath by Dr. Yun Nonobstructive moderate proximal to mid LAD disease FFR 0.88 Recommendations: Continued ASCVD risk factor modification per Dr. Haynes -- chest pain free on ASA, Plavix (6) Hypertension: Imdur and Amlodipine started Lisinopril increased monitor BP (7) Atrial flutter: -s/p ablation -currently in NSR -was advised by cardio to stop rate controlling meds due to bradycardia, anticoagulation also no longer indicated (8) Tobacco abuse: -nicotine patch -patient counseled regarding tobacco cessation (9) Anxiety: -continue Xanax and paroxetine - feels anxious, hypervigilant all the time reports being "stalked" by her chemical engineering professor for 15 years - Psych consulted - Zyprexa HS ordered - improving continue to monitor (10) DVT prophylaxis: was on Heparin drip SCDs Disposition pending anticipate d/c home when medically stable, will need home health [facility] PT OT ff up with PCP, Cardiology, Psych Subjective ff up for COPD , NSTEMI seen resting in bed, comforatable in good spirits states she feels improved daily no chest pain, dyspnea, dizziness no cough, sputum mood also better, denies anxiety/depression symptoms no other symptoms Physical Exam 2 Vital Signs (Past 24 Hours): Last Vital Signs Temp 36.7 C 05/15/18 03:23 Pulse 56 L 05/15/18 03:23 Resp 16 05/15/18 03:23 BP 161/86 H 05/15/18 03:23 Pulse Ox 90 05/15/18 03:23 Physical Exam: General- oriented x 3, not in distress, speaks in sentences with no effort or accessory muscle use Eyes- anicteric Neck- no JVD Lungs- clear BS BL, no rales/wheezes Heart- normal rate, regular rhythm; no murmurs Abdomen- normal bowel sounds, nondistended, soft, nontender Extremities- no pretibial edema, no calf tenderness Neuro- alert, oriented x 3; no gross focal neurologic deficits Skin- warm & dry Psych- appropriate affect, mood is happy Results & Data Laboratory Results all noted and reviewed
[2018-05-15 06:38] LABS: Partial Thromboplastin Ratio 0.9; Partial Thromboplastin Time 24.2 Seconds (21.0-31.0)
[2018-05-15 06:42] LABS: BUN Creatinine Ratio 25.1 (10-20); Creatinine Clr Calc Pharmacy 78.2 ml/min; Est GFR (African American) 84.1; Est GFR (Non-African American) 72.6; Potassium 4.9 mmol/L (3.5-5.1)
[2018-05-15] MEDS ORDERED: ISOSORBIDE MONO EXTENDED REL 30 MG TABCR PO SCH (09:00)
[2018-05-15] MEDS ORDERED: AMLODIPINE BESYLATE 5 MG TAB PO SCH (09:00)
--- NOTE | 2018-05-15 09:41 | Cardiology Progress Note ---
Date of Service May 15, 2018 Assessment & Plan (1) NSTEMI (non-ST elevated myocardial infarction): The patient had single-vessel coronary artery disease of proximal or mid LAD. It was tested with an FFR and found not to be hemodynamically non- significant however, given her presentation with elevated troponins and EKG changes she at least has a component coronary spasm. The patient is currently tolerating her medications. Her blood pressure is still little bit elevated and I will increase her lisinopril to 20 mg daily. At this point I believe the patient could be discharged to outpatient follow-up and I will make arrangements for her to be seen through our clinic. 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 Subjective The patient had an uneventful night. She is currently ambulating in the [place] without difficulty. She has no new cardiac complaints today. Physical Exam 2 Vital Signs (Past 24 Hours): Last Vital Signs Temp 36.8 C 05/15/18 08:28 Pulse 69 05/15/18 08:28 Resp 18 05/15/18 08:28 BP 154/72 H 05/15/18 08:28 Pulse Ox 99 05/15/18 08:28 Physical Exam: General: no acute distress and stated age Head: normocephalic, no masses, lesions, tenderness or abnormalities Eyes: conjunctiva are pink and non-injected, sclera clear Neck: supple, no adenopathy, no bruits, normal jugular venous pulse, no hepatojugular reflux Chest: normal shape and normal respiratory effort Lungs: clear to auscultation and percussion Cardiac Exam: - regular rate & rhythm, no murmurs gallops or rubs - normal S1, normal S2 Pulses: 2(+) throughout Abdomen: abdomen soft, non-tender, no abnormal masses and no hepatosplenomegaly Musculoskeletal: no gait disturbance, no joint inflammation, no deforming arthritis Extremities: no edema and no cyanosis Neuro: grossly normal exam
[2018-05-15] MEDS: CLOPIDOGREL BISULFATE 75 MG TAB PO SCH (10:03)
[2018-05-15] MEDS: AZITHROMYCIN 250 MG TAB PO SCH (10:03)
[2018-05-15] MEDS: cefTRIAXone SODIUM 1,000 MG/50 ML BAG IV SCH (10:05)
[2018-05-15] MEDS: ASPIRIN 81 MG ECTAB PO SCH (10:05)
[2018-05-15] MEDS: NICOTINE 21 MG/24 HR TDSY TD SCH (10:06)
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
[2018-05-15] MEDS ORDERED: AMOXICILLIN/CLAVULANATE 875 MG TAB PO SCH (17:00)
[2018-05-15] MEDS ORDERED: LISINOPRIL 40 MG TAB PO SCH (21:00)
[2018-05-15] MEDS ORDERED: FLUTICASONE/SALMETEROL 100/50 (ADVAIR) 14 PUFF/1 INHALER INH SCH (21:00)
[2018-05-16] MEDS ORDERED: predniSONE 20 MG TAB PO SCH (09:00)
== END 2018-05-15 16:18 | disposition home health service (06) | DRG 280 ==
LOC: ED 08:02 → 2E 10:03 → SUATTDRO 10:03 → 2E 10:32
PROC: CLB.CCO (2018-05-13 09:30)

== ENCOUNTER 2020-02-10 11:53 | Inpatient (IN) ==
[2020-02-10 12:33] LABS: Basophils # (auto) 0.01 K/uL (0-0.2); Basophils % (auto) 0.2 %; Eosinophils # (auto) 0.02 K/uL (0-0.5); Eosinophils % (auto) 0.3 %; Hematocrit (blood only) 45.9 % (37-47); Hemoglobin 15.4 g/dL (12.0-16.0); Immature Granulocytes # (auto) 0.03 K/uL (0.00-0.02); Immature Granulocytes % (auto) 0.5 %; Lymphocytes # (auto) 0.87 K/uL (1.2-3.4); Lymphocytes % (auto) 13.3 %; Mean Corpuscular Hemoglobin 32.6 pg (25-34); Mean Corpuscular Hgb Conc 33.6 g/dL (32-36); Mean Corpuscular Volume 97.2 fL (80-100); Mean Platelet Volume 9.8 fL (7.4-10.4); Monocytes # (auto) 0.55 K/uL (0.11-0.59); Monocytes % (auto) 8.4 %; Neutrophils # (auto) 5.04 K/uL (1.4-6.5); Neutrophils % (auto) 77.3 %; Platelet Count 246 K/uL (130-400); RDW Coefficient of Variation 14.7 % (11.5-14.5); RDW Standard Deviation 52.3 fL (36.4-46.3); Red Blood Count 4.72 M/uL (4.2-5.4); White Blood Count 6.52 K/uL (4.8-10.8)
[2020-02-10 12:49] LABS: INR 1.1 (0.9-1.1); Partial Thromboplastin Ratio 1.2; Partial Thromboplastin Time 32.1 Seconds (21.0-31.0)
[2020-02-10] MEDS ORDERED: ALBUTEROL HFA 8 GM INHALER INH ONE (12:49)
[2020-02-10] MEDS ORDERED: DEXAMETHASONE SOD INJ 10 MG/ML VIAL IV ONE (12:49)
[2020-02-10] MEDS ORDERED: ACETAMINOPHEN 1,000 MG/100 ML VIAL IV STA (12:50)
[2020-02-10] MEDS ORDERED: CEFEPIME 2,000 MG/20 ML VIAL IV STA (12:50)
[2020-02-10] MEDS ORDERED: ONDANSETRON INJ 2 MG/ML 2 ML VIAL IV STA (12:51)
[2020-02-10] MEDS ORDERED: HYDROmorphone INJ 0.5 MG/0.5 ML SYR IV PRN (12:51)
[2020-02-10 12:53] LABS: Albumin Level 2.9 gm/dl (3.4-5.0); BUN Creatinine Ratio 13.6 (10-20); Calcium 8.4 mg/dl (8.5-10.1); Creatinine Clr Calc Pharmacy 100.7 ml/min; Est GFR (Non-African American) 88.8; Magnesium 1.8 mg/dl (1.8-2.4); Potassium 3.8 mmol/L (3.5-5.1)
[2020-02-10 12:57] LABS: Albumin Globulin Ratio 0.7 (0.9-2); Bilirubin,Total 0.6 mg/dl (0.2-1); Globulin 3.9 gm/dl (2.5-4.0); Total Protein 6.8 gm/dl (6.4-8.2); Troponin I 0.017 ng/ml (0-0.045)
[2020-02-10 13:04] LABS: iSTAT Creatinine 0.6 mg/dl (0.6-1.3); iSTAT Ionized Calcium 1.06 mmol/l (1.12-1.32); iSTAT Potassium 3.9 mmol/L (3.3-5.0)
--- NOTE | 2020-02-10 13:24 | XRay Report ---
SINGLE VIEW CHEST CLINICAL HISTORY: Sepsis. FINDINGS: An AP, portable, upright chest radiograph is compared to study dated 02/03/2020. The examin ation is degraded by portable technique and patient rotation. The heart is enlarged. There is mild pu lmonary vascular congestion. Airspace consolidation is seen at both lung bases. No large pleural effu massimo or pneumothorax is seen. The skeletal structures are osteopenic. The bony thorax is grossly inta ct. IMPRESSION: 1. Cardiomegaly with mild pulmonary vascular congestion. 2. Airspace consolidation is seen at both lung bases. Correlate clinically for evidence of pneumonia/ aspiration pneumonitis. Radiographic follow-up to resolution is recommended. ACT 112: Negative or not required by law. Electronically signed by: Stevo Jackson M.D. 02/10/2020 1:23 PM
[2020-02-10 14:33] LABS: C Reactive Protein 7.04 mg/dl (0-0.29); Ferritin 212.3 ng/ml (8-388)
--- NOTE | 2020-02-10 14:34 | History & Physical Report ---
Date of Service February 10, 2020 Assessment & Plan (1) Pneumonia due to COVID-19 virus: Admitted with cough, fever, shortness of breath, hypoxia Chest x-ray shows bibasilar consolidation, COVID-19 positive Patient started with IV dexamethasone in the ER given 10 mg x 1 dose Patient will be continued with dexamethasone 6 mg IV daily for total 10 days Steroid can be changed to equivalent glucocorticoid: Prednisone 40 mg daily to complete the course when clinically appropriate Patient started with a remdesivir as per protocol-complete total 5 days of treatment Daily LFTs will be monitored while on IV remdesivir Chest x-ray suggestive of possible aspiration, will continue patient on empiric antibiotic with IV Zosyn, added doxycycline Aspiration precaution Consult speech when clinically appropriate [facility] infectious disease consult requested (2) COVID-19: Management as outlined above (3) Hypoxia: Due to COVID-19 pneumonia, Continue supplemental oxygen to keep SPO2 above 90%, as needed inhalers, IV dexamethasone and remdesivir as per protocol (4) CAD (coronary artery disease): Complaint of chest pain, ongoing shortness of breath dyspnea on exertion secondary to COVID-19 pneumonia Continue outpatient cardiac meds (5) COPD (chronic obstructive pulmonary disease): Treatment for COVID-19 pneumonia as outlined above, No audible wheeze, continue outpatient inhalers Started with dexamethasone secondary to Covid 19 pneumonia Nausea /vomiting /diarrhea : symptoms has improved now Stool for C. difficile, stool culture ordered CT abdomen/pelvis : IMPRESSION: 1. There is right basilar airspace consolidation. Correlate clinically for evidence of pneumonia/aspiration pneumonitis. 2. There is mild wall thickening and edema involving the gastric antrum with faint perigastric inflammation. This could be seen in the setting of gastritis or possibly ulcer disease and clinical correlation will be required. Nonemergent follow-up with endoscopy is recommended to assess for the less likely possibility of underlying mass lesion. 3. There is mild to moderate diverticulosis of the left colon without CT evidence of acute diverticulitis. Continue PPI for possible GERD/peptic ulcer disease Outpatient EGD after patient completely recovered from COVID-19 infection (6) Hypertension: Blood pressure stable, continue outpatient meds CODE STATUS: Full code DVT prophylaxis subcu Lovenox 40 mg twice daily as per Covid 19 DVT prophylaxis protocol Disposition: Patient will need PT OT evaluation prior to discharge home, social service consulted for discharge planning History of Present Illness Chief Complaint: Weakness Primary Care Provider: Merlin Barrios MD This is a 74 y/o female with a PMH of CAD with hx of NSTEMI, COPD, HTN, dyslipidemia, atrial flutter, anxiety, depression, and prediabetes who presented to the ED today via EMS. Of note, pt underwent right knee arthroscopy on 01/21/20 and was discharged home. However, she apparently fell multiple times at home and was subsequently evaluated in the ED on 01/22/20. From there, she was sent to rehab and subsequently discharged home. Pt was again seen in the ED on 02/03/20 due to recurrent falls and lumbar contusion. Work-up was negative for fracture so pt was discharged to home. Her Epic chart was extensively reviewed. She called into her PCP office this morning due to complaints of progressive weakness, abdominal pain, vomiting and diarrhea for the past few weeks. They offered her an office visit but she reported being too ill to come to the office so EMS was ultimately called and patient was brought to the ED. In the ED, she was noted to be febrile and hypoxic. Pt was unaware of any known contact with someone who has COVID-19 but testing in the ED was positive. Allergies Allergy/AdvReac Type Severity Reaction Status Date / Time No Known Allergies Allergy Verified 02/03/20 16:53 Home Medications Medication Instructions Recorded Confirmed Type Caltrate 600 plus D 1 tab PO BID 05/10/18 02/10/20 History alprazolam 1 mg PO HS 05/10/18 02/10/20 History ascorbic acid (vitamin C) [Vitamin 500 mg PO DAILY 05/10/18 02/10/20 History C] aspirin 81 mg PO HS 05/10/18 02/10/20 History omega 5-[id number]-ngz-fish oil [Fish Oil] 1 cap PO HS 05/10/18 02/10/20 History paroxetine HCl 60 mg PO HS 05/10/18 02/10/20 History lisinopril 10 mg PO QPM 08/11/18 02/10/20 History albuterol sulfate 2 puff INHALATION Q6H PRN 01/14/19 02/10/20 History cyanocobalamin (vitamin B-12) 1,000 mcg PO HS 01/14/19 02/10/20 History nitroglycerin 0.4 mg SUBLINGUAL USEASDIRECTD PRN 01/14/19 02/10/20 History sumatriptan succinate 100 mg PO UD PRN 01/14/19 02/10/20 History rosuvastatin 40 mg PO HS 10/10/19 02/10/20 History tizanidine 4 mg PO TID PRN 12/26/19 02/10/20 History oxycodone-acetaminophen [Percocet] 1 tab PO Q4H PRN #20 tab 01/21/20 02/10/20 Rx ibuprofen 400 mg PO Q6H PRN 02/03/20 02/03/20 History fluticasone propion-salmeterol 1 inh INHALATION BID 02/10/20 02/10/20 History [Advair Diskus] umeclidinium [Incruse Ellipta] 1 inh INHALATION DAILY 02/10/20 02/10/20 History Past Med/Surg History Medical History Anxiety and depression Atrial flutter s/p ablation 05/2017. Follows with [facility] cardio. CAD (coronary artery disease) Nonobstructive by 2018 cardiac cath. NSTEMI ruled 2/2 coronary spasm. COPD (chronic obstructive pulmonary disease) 2.5 LPM VIA N/C ONLY AT HS. Advair daily, rarely using rescue inhaler, ~ 3x per month Continues to smoke 1ppd Degenerative disc disease Hyperlipidemia Hypertension Myocardial Infarction NSTEMI 04/2018 [facility] On home oxygen therapy 2.5L AT HS Osteoarthritis Sleep apnea "MILD" ONLY WEARS O2 AT 2.5L AT HS Tobacco abuse Surgical History History of breast biopsy History of cardiac cath 04/2018 for NSTEMI, Nonobstructive moderate proximal to mid LAD disease. History of cardiac radiofrequency ablation 2018 History of section X 2 History of colonoscopy History of dilatation and curettage History of discectomy LUMBAR History of eye surgery RT EYE (CAN'T REMEMBER WHAT FOR) History of laparoscopy 2/2 endometriosis History of open reduction and internal fixation (ORIF) procedure RT ANKLE History of tooth extraction Family History Father Hypertension Brother Diabetes Depression Family history of diabetes mellitus Sister Depression Family history of diabetes mellitus Social History Smoking Status: Current every day smoker Tobacco Type: Cigarettes Cigarettes Per Day: 20 DAILY; Second Hand Exposure: No; Do You Dip or Chew Tobacco: No; Tobacco Cessation Education Requested by Patient: No Hx Alcohol Use: No Hx Substance Use: No Preferred Language: Singaporean Communication Ability: Effective Visual Impairment: No Limitations Hearing Ability: Normal Chemical Weigher Required: No Beliefs That Will Affect Care: None marital status: Single Current Living Situation: Alone Other Information That Helps Us Care for You: No Feels Safe at Home: Yes Safety Concerns: Feels Safe At This Time Assistive Devices: Cane Review of Systems Review of Systems: All systems reviewed & are unremarkable except as noted in HPI & below Constitutional: + fever, + chills, + sweats, + body aches, + fatigue, + malaise and + weakness Respiratory: + cough, + dyspnea, + dyspnea on exertion and + pain with cough Cardiovascular: + dyspnea, + dyspnea on exertion and + orthopnea Gastrointestinal: + abdominal pain, + nausea and + diarrhea/loose stools; no vomiting Neurologic: + generalized weakness Physical Exam Constitutional: WD/WN, vitals as above + ill appearing Eyes: + anicteric sclerae ENMT: external ear and nose normal, oropharynx normal Neck: trachea midline, no thyromegaly Respiratory: no respiratory distress Auscultation: + diminished lung sounds, + crackles, + wheezes and + pleural rub present Cardiovascular: Rate/Rhythm: regular rate and regular rhythm Extremities: no edema Gastrointestinal (Abdomen): Percussion/Palpation: abdomen soft; abdomen nontender Skin: no rashes, warm and dry Neurologic: PERRL, EOMI, accommodation nl, no face palsy, no dysarthria no focal motor deficits Psychiatric: A+Ox3, euthymic affect Results & Data Results & Data ([facility]) Vital Signs (Past 12 Hours) Vital Signs Temp Pulse Resp BP Pulse Ox 02/10/20 13:01 88 28 H 91 02/10/20 13:00 82 29 H 158/106 H 91 02/10/20 12:45 87 27 H 157/99 H 92 02/10/20 12:30 85 29 H 165/95 H 92 02/10/20 12:26 39.4 C H 90 18 186/127 H 90 02/10/20 12:23 87 20 193/105 H 94 02/10/20 12:15 86 26 H 02/10/20 12:04 85 27 H 90 02/10/20 12:00 85 20 186/127 H 90 Laboratory Results Laboratory Results - last 24 hr 02/10/20 02/10/20 02/10/20 12:18 12:18 12:18 WBC 6.52 RBC 4.72 Hgb 15.4 POC Hgb Hct 45.9 POC Hct MCV 97.2 MCH 32.6 MCHC 33.6 RDW Std Deviation 52.3 H RDW Coeff of Bryan 14.7 H Plt Count 246 MPV 9.8 Immature Gran % (Auto) 0.5 Neut % (Auto) 77.3 Lymph % (Auto) 13.3 Wilson % (Auto) 8.4 Eos % (Auto) 0.3 Baso % (Auto) 0.2 Neut # (Auto) 5.04 Lymph # (Auto) 0.87 L Wilson # (Auto) 0.55 Eos # (Auto) 0.02 Baso # (Auto) 0.01 Immature Gran # (Auto) 0.03 H ESR PT 12.0 INR 1.1 APTT 32.1 H PTT Ratio 1.2 POC Sodium Sodium 136 POC Potassium Potassium 3.8 POC Chloride Chloride 101 Carbon Dioxide 27 POC Total CO2 Anion Gap 8.0 POC Anion Gap POC BUN BUN 9 Creatinine 0.62 POC Creatinine Est Cr Clr Drug Dosing 100.7 Est GFR ( Amer) 103.0 Est GFR (Non-Af Amer) 88.8 BUN/Creatinine Ratio 13.6 Glucose 115 H POC Glucose (other) Lactate Calcium 8.4 L POC Ioniz Calcium Eriberto Magnesium 1.8 Ferritin Total Bilirubin 0.6 AST 30 ALT 22 Alkaline Phosphatase 52 Lactate Dehydrogenase Troponin I 0.017 C-Reactive Protein Total Protein 6.8 Albumin 2.9 L Globulin 3.9 Albumin/Globulin Ratio 0.7 L Procalcitonin COVID-19 Eval Order SARS-CoV-2, RNA, NAAT Blood Type Antibody Screen 02/10/20 02/10/20 02/10/20 12:18 12:18 12:18 WBC RBC Hgb POC Hgb Hct POC Hct MCV MCH MCHC RDW Std Deviation RDW Coeff of Bryan Plt Count MPV Immature Gran % (Auto) Neut % (Auto) Lymph % (Auto) Wilson % (Auto) Eos % (Auto) Baso % (Auto) Neut # (Auto) Lymph # (Auto) Wilson # (Auto) Eos # (Auto) Baso # (Auto) Immature Gran # (Auto) ESR PT INR APTT PTT Ratio POC Sodium Sodium POC Potassium Potassium POC Chloride Chloride Carbon Dioxide POC Total CO2 Anion Gap POC Anion Gap POC BUN BUN Creatinine POC Creatinine Est Cr Clr Drug Dosing Est GFR ( Amer) Est GFR (Non-Af Amer) BUN/Creatinine Ratio Glucose POC Glucose (other) Lactate 1.1 Calcium POC Ioniz Calcium Eriberto Magnesium Ferritin Total Bilirubin AST ALT Alkaline Phosphatase Lactate Dehydrogenase Troponin I C-Reactive Protein Total Protein Albumin Globulin Albumin/Globulin Ratio Procalcitonin < 0.05 COVID-19 Eval [facility] SARS-CoV-2, RNA, NAAT Blood Type Antibody Screen 02/10/20 02/10/20 02/10/20 12:18 12:41 13:09 WBC RBC Hgb POC Hgb 16.0 Hct POC Hct 47 MCV MCH MCHC RDW Std Deviation RDW Coeff of Bryan Plt Count MPV Immature Gran % (Auto) Neut % (Auto) Lymph % (Auto) Wilson % (Auto) Eos % (Auto) Baso % (Auto) Neut # (Auto) Lymph # (Auto) Wilson # (Auto) Eos # (Auto) Baso # (Auto) Immature Gran # (Auto) ESR PT INR APTT PTT Ratio POC Sodium 136 Sodium POC Potassium 3.9 Potassium POC Chloride 96 L Chloride Carbon Dioxide POC Total CO2 28 Anion Gap POC Anion Gap 16.0 POC BUN 8 BUN Creatinine POC Creatinine 0.6 Est Cr Clr Drug Dosing Est GFR ( Amer) Est GFR (Non-Af Amer) BUN/Creatinine Ratio Glucose POC Glucose (other) 117 H Lactate Calcium POC Ioniz Calcium Eriberto 1.06 L Magnesium Ferritin Total Bilirubin AST ALT Alkaline Phosphatase Lactate Dehydrogenase Troponin I C-Reactive Protein Total Protein Albumin Globulin Albumin/Globulin Ratio Procalcitonin COVID-19 Eval Order SARS-CoV-2, RNA, NAAT POSITIVE A* Blood Type O Positive Antibody Screen NEGATIVE 02/10/20 02/10/20 02/10/20 13:09 13:09 13:09 WBC RBC Hgb POC Hgb Hct POC Hct MCV MCH MCHC RDW Std Deviation RDW Coeff of Bryan Plt Count MPV Immature Gran % (Auto) Neut % (Auto) Lymph % (Auto) Wilson % (Auto) Eos % (Auto) Baso % (Auto) Neut # (Auto) Lymph # (Auto) Wilson # (Auto) Eos # (Auto) Baso # (Auto) Immature Gran # (Auto) ESR 45 H PT INR APTT PTT Ratio POC Sodium Sodium POC Potassium Potassium POC Chloride Chloride Carbon Dioxide POC Total CO2 Anion Gap POC Anion Gap POC BUN BUN Creatinine POC Creatinine Est Cr Clr Drug Dosing Est GFR ( Amer) Est GFR (Non-Af Amer) BUN/Creatinine Ratio Glucose POC Glucose (other) Lactate Calcium POC Ioniz Calcium Eriberto Magnesium Ferritin Pending Total Bilirubin AST ALT Alkaline Phosphatase Lactate Dehydrogenase 363 H Troponin I C-Reactive Protein Pending Total Protein Albumin Globulin Albumin/Globulin Ratio Procalcitonin COVID-19 Eval Order SARS-CoV-2, RNA, NAAT Blood Type Antibody Screen Diagnostic Findings Portable chest x-ray: IMPRESSION: 1. Cardiomegaly with mild pulmonary vascular congestion. 2. Airspace consolidation is seen at both lung bases. Correlate clinically for evidence of pneumonia/aspiration pneumonitis. Radiographic follow-up to resolution is recommended. CT abdomen pelvis with IV contrast: IMPRESSION: 1. There is right basilar airspace consolidation. Correlate clinically for evidence of pneumonia/aspiration pneumonitis. 2. There is mild wall thickening and edema involving the gastric antrum with faint perigastric inflammation. This could be seen in the setting of gastritis or possibly ulcer disease and clinical correlation will be required. Nonemergent follow-up with endoscopy is recommended to assess for the less likely possibility of underlying mass lesion. 3. There is mild to moderate diverticulosis of the left colon without CT evidence of acute diverticulitis. 4. Additional findings as above. Medications Administered Hydromorphone HCl (Hydromorphone Inj 0.5 Mg/0.5 Ml Syr) 0.5 mg IV Q15M PRN PRN Reason: Pain Stop: 02/24/20 12:50 Last Admin: 02/10/20 13:23 Dose: 0.5 mg Documented by: [id number] Discontinued Medications Albuterol (Albuterol Hfa 8 Gm Inhaler) 2 puffs INH NOW ONE Stop: 02/10/20 12:50 Last Admin: 02/10/20 13:31 Dose: 2 puffs Documented by: [id number] Dexamethasone (Dexamethasone Sod Inj 10 Mg/Ml Vial) 10 mg IV NOW ONE Stop: 02/10/20 12:50 Last Admin: 02/10/20 13:26 Dose: 10 mg Documented by: [id number] Acetaminophen (Ofirmev) 1,000 mg in 100 mls @ 400 mls/hr IV NOW STA Stop: 02/10/20 13:04 Last Admin: 02/10/20 13:24 Dose: 400 mls/hr Documented by: [id number] Cefepime HCl (Maxipime) 2,000 mg in 20 mls @ 5 mls/min IV NOW STA Stop: 02/10/20 12:53 Last Admin: 02/10/20 13:31 Dose: 5 mls/min Documented by: [id number] Ondansetron HCl (Ondansetron Inj 2 Mg/Ml 2 Ml Vial) 4 mg IV NOW STA Stop: 02/10/20 12:52 Last Admin: 02/10/20 13:21 Dose: 4 mg Documented by: [id number] Code Status & VTE Plan Code Status Full code VTE Prophylaxis Plan VTE Prophylaxis will be ordered: Yes (1) CAD (coronary artery disease) Associated angina: without angina Coronary Disease-Associated Artery/Lesion type: false pass artery [place] vs. transplanted heart: false pass heart Qualified Code(s): I25.10 - Atherosclerotic heart disease of false pass coronary artery without angina pectoris (2) COPD (chronic obstructive pulmonary disease) COPD type: COPD with acute exacerbation Qualified Code(s): J44.1 - Chronic obstructive pulmonary disease with (acute) exacerbation (3) Hypertension Hypertension type: essential hypertension Qualified Code(s): I10 - Essential (primary) hypertension
[2020-02-10] MEDS ORDERED: IOVERSOL 100ml IV ONE (15:43)
--- NOTE | 2020-02-10 16:20 | CT Scan Report ---
CT SCAN OF THE ABDOMEN AND PELVIS WITH IV CONTRAST CLINICAL HISTORY: Left lower quadrant abdominal pain. COMPARISON STUDY: Abdominal CT dated 10/30/2019. TECHNIQUE: Following the IV administration of 94 cc of Optiray 320, CT scan of the abdomen and pelvi s is performed from the lung bases to the proximal femora. Images are reviewed in the axial, sagittal , and coronal planes. IV contrast was administered without complication. A dose lowering technique wa s utilized adhering to the principles of ALARA. CT DOSE: 973.56 mGycm FINDINGS: Lung bases: The heart is normal in size and without pericardial effusion. There is airspace consolida tion at the right lung base. Atelectasis is seen at the left lung base. A punctate calcified granulom a seen in the right lower lobe. No pleural effusion is identified. There is a small hiatal hernia. Liver: The contrast-enhanced liver is normal in size, contour, and attenuation. There is no intrahepa tic biliary ductal dilatation. The hepatic veins and portal veins are patent. Gallbladder: Unremarkable. Spleen: Normal in size and attenuation. Pancreas: Moderately atrophic and grossly unremarkable. Adrenal glands: Mild nodularity of the adrenal glands is unchanged. Kidneys: The contrast enhanced kidneys demonstrate cortical atrophy and are without hydronephrosis. T he kidneys enhance symmetrically. Abdominal vasculature: The abdominal aorta is normal in course and caliber noting mild atheroscleroti c calcification. Bowel: There is mild wall thickening edema of the gastric antrum with surrounding infiltration. This is best seen on axial image #165. A 1 cm perigastric lymph node is seen on image #176. There is mild to moderate diverticulosis of the left colon without CT evidence of acute diverticulitis. No bowel ob struction is seen. The appendix is well-visualized and normal. Peritoneum: There is no intraperitoneal free air or abdominal ascites. There is evidence of previous ventral hernia repair. A fat-containing ventral hernia is seen in the right upper quadrant abdominal wall on image #111. A fat-containing umbilical hernia is seen on image #251. Lymphadenopathy: None. Pelvic viscera: The bladder, uterus, and adnexa are normal as visualized. Skeletal structures: The skeletal structures are osteopenic. There is moderate lumbosacral spondylosi s. Postlaminectomy change is seen in the lower lumbar spine. No lytic or blastic lesions are seen. IMPRESSION: 1. There is right basilar airspace consolidation. Correlate clinically for evidence of pneumonia/aspi ration pneumonitis. 2. There is mild wall thickening and edema involving the gastric antrum with faint perigastric inflam mation. This could be seen in the setting of gastritis or possibly ulcer disease and clinical correla tion will be required. Nonemergent follow-up with endoscopy is recommended to assess for the less lik scott possibility of underlying mass lesion. 3. There is mild to moderate diverticulosis of the left colon without CT evidence of acute diverticul itis. 4. Additional findings as above. ACT 112: Negative or not required by law. Electronically signed by: Stevo Jackson M.D. 02/10/2020 3:59 PM
[2020-02-10] MEDS ORDERED: ACETAMINOPHEN 325 MG TAB PO PRN (16:25)
[2020-02-10] MEDS ORDERED: NITROGLYCERIN SL 0.4 MG/TAB TAB SL PRN ×2 (16:25→20:36)
[2020-02-10] MEDS ORDERED: PIPERACILL/TAZOBAC CONSULT ACTIVE PRN (16:36)
[2020-02-10] MEDS ORDERED: LEVALBUTEROL TARTRATE 15 GM HFA.AER.AD INH PRN (16:38)
[2020-02-10] MEDS ORDERED: PIPERACILLIN/TAZOBACTAM 3.375 GM in DEXTROSE 5% 100 ML IV SCH (16:45)
--- NOTE | 2020-02-10 16:52 | Emergency Department Note ---
History of Present Illness General Chief complaint: Abdominal Pain Stated complaint: Abd pain Fever Hypoxia Time Seen by Provider: 02/10/20 12:01 Source: patient, EMS, RN notes reviewed and old records reviewed Mode of arrival: EMS Limitations: no limitations History of Present Illness Provider complaint: Abdominal pain Onset (ago): day(s) 1 Location: abdomen Radiation: back Severity: moderate Pain Consistency: + intermittent Maximum Pain Intensity: 5 Current Pain Intensity: 5 Quality: + aching Relieved By: + immobilization Associated symptoms: + fever/chills, + nausea/vomiting and + shortness of breath; no chest pain, no diaphoresis and no headaches Treatments prior to arrival: none This is a 74-year-old female who presents emergency department complaining of abdominal pain diarrhea fevers chills aches. The patient reports she recently had knee surgery several weeks ago. She then went to rehab and was discharged to home almost 1 week ago. Since that time starting yesterday the patient developed fevers chills body aches and pains she is also complaining of left lower quadrant abdominal pain. She describes the pain as an ache. She reports movement makes the pain worse however immobilization makes the pain better. She has not taken anything for the pain today. Home Medications Medication Instructions Recorded Confirmed Type Caltrate 600 plus D 1 tab PO BID 05/10/18 02/10/20 History alprazolam 1 mg PO HS 05/10/18 02/10/20 History ascorbic acid (vitamin C) [Vitamin 500 mg PO DAILY 05/10/18 02/10/20 History C] aspirin 81 mg PO HS 05/10/18 02/10/20 History omega 5-xxz-szj-fish oil [Fish Oil] 1 cap PO HS 05/10/18 02/10/20 History paroxetine HCl 60 mg PO HS 05/10/18 02/10/20 History lisinopril 10 mg PO QPM 08/11/18 02/10/20 History albuterol sulfate 2 puff INHALATION Q6H PRN 01/14/19 02/10/20 History cyanocobalamin (vitamin B-12) 1,000 mcg PO HS 01/14/19 02/10/20 History nitroglycerin 0.4 mg SUBLINGUAL USEASDIRECTD PRN 01/14/19 02/10/20 History sumatriptan succinate 100 mg PO UD PRN 01/14/19 02/10/20 History rosuvastatin 40 mg PO HS 10/10/19 02/10/20 History tizanidine 4 mg PO TID PRN 12/26/19 02/10/20 History oxycodone-acetaminophen [Percocet] 1 tab PO Q4H PRN #20 tab 01/21/20 02/10/20 Rx ibuprofen 400 mg PO Q6H PRN 02/03/20 02/03/20 History fluticasone propion-salmeterol 1 inh INHALATION BID 02/10/20 02/10/20 History [Advair Diskus] umeclidinium [Incruse Ellipta] 1 inh INHALATION DAILY 02/10/20 02/10/20 History Allergies Allergy/AdvReac Type Severity Reaction Status Date / Time No Known Allergies Allergy Verified 02/03/20 16:53 Past Med/Surg History Medical History Anxiety and depression Atrial flutter s/p ablation 05/2017. Follows with [facility] cardio. CAD (coronary artery disease) Nonobstructive by 2018 cardiac cath. NSTEMI ruled 2/2 coronary spasm. COPD (chronic obstructive pulmonary disease) 2.5 LPM VIA N/C ONLY AT HS. Advair daily, rarely using rescue inhaler, ~ 3x per month Continues to smoke 1ppd Degenerative disc disease Hyperlipidemia Hypertension Myocardial Infarction NSTEMI 04/2018 [facility] On home oxygen therapy 2.5L AT HS Osteoarthritis Sleep apnea "MILD" ONLY WEARS O2 AT 2.5L AT HS Tobacco abuse Surgical History History of breast biopsy History of cardiac cath 04/2018 for NSTEMI, Nonobstructive moderate proximal to mid LAD disease. History of cardiac radiofrequency ablation 2018 History of section X 2 History of colonoscopy History of dilatation and curettage History of discectomy LUMBAR History of eye surgery RT EYE (CAN'T REMEMBER WHAT FOR) History of laparoscopy 2/2 endometriosis History of open reduction and internal fixation (ORIF) procedure RT ANKLE History of tooth extraction Family History Father Hypertension Brother Diabetes Depression Family history of diabetes mellitus Sister Depression Family history of diabetes mellitus Social History Smoking Status: Current every day smoker Tobacco Type: Cigarettes Cigarettes Per Day: 20 DAILY; Second Hand Exposure: No; Do You Dip or Chew Tobacco: No; Tobacco Cessation Education Requested by Patient: No Hx Alcohol Use: No Hx Substance Use: No Preferred Language: Gabonese Communication Ability: Effective Visual Impairment: No Limitations Hearing Ability: Normal Utility [employer] Required: No Beliefs That Will Affect Care: None marital status: Single Current Living Situation: Alone Other Information That Helps Us Care for You: No Feels Safe at Home: Yes Safety Concerns: Feels Safe At This Time Assistive Devices: Cane Review of Systems A total of 10 systems reviewed and were otherwise negative Physical Exam Vital Signs Vital Signs - 24 hr 02/10/20 12:00 02/10/20 12:04 02/10/20 12:15 Temperature Temperature Source Pulse Rate 85 85 86 Pulse Rate from SpO2 Sensor 86 88 Respiratory Rate 20 27 H 26 H Blood Pressure 186/127 H Blood Pressure Mean 144 Pulse Oximetry 90 90 Oxygen Delivery Method Oxygen Flow Rate 2 2 2 Sepsis Recent Fever Within 48 Hours Sepsis New/Unexplained Change in Mental Status Sepsis Action Taken by Nursing 02/10/20 12:23 02/10/20 12:26 02/10/20 12:30 Temperature 39.4 C H Temperature Source Oral Pulse Rate 87 90 85 Pulse Rate from SpO2 Sensor 85 86 Respiratory Rate 20 18 29 H Blood Pressure 193/105 H 186/127 H 165/95 H Blood Pressure Mean 120 146 107 Pulse Oximetry 94 90 92 Oxygen Delivery Method Room Air Oxygen Flow Rate 2 2 Sepsis Recent Fever Within 48 Hours Yes Sepsis New/Unexplained Change in Mental Status No Sepsis Action Taken by Nursing No Action Required 02/10/20 12:45 02/10/20 13:00 02/10/20 13:01 Temperature Temperature Source Pulse Rate 87 82 88 Pulse Rate from SpO2 Sensor 88 84 87 Respiratory Rate 27 H 29 H 28 H Blood Pressure 157/99 H 158/106 H Blood Pressure Mean 112 134 Pulse Oximetry 92 91 91 Oxygen Delivery Method Oxygen Flow Rate 2 2 2 Sepsis Recent Fever Within 48 Hours Sepsis New/Unexplained Change in Mental Status Sepsis Action Taken by Nursing 02/10/20 13:15 02/10/20 13:30 02/10/20 13:31 Temperature Temperature Source Pulse Rate 92 H 89 89 Pulse Rate from SpO2 Sensor 87 91 H 90 Respiratory Rate 19 19 17 Blood Pressure 170/117 H 194/85 H Blood Pressure Mean 130 122 Pulse Oximetry 93 91 91 Oxygen Delivery Method Oxygen Flow Rate Sepsis Recent Fever Within 48 Hours Sepsis New/Unexplained Change in Mental Status Sepsis Action Taken by Nursing 02/10/20 13:45 02/10/20 14:00 02/10/20 14:19 Temperature Temperature Source Pulse Rate 87 92 H 97 H Pulse Rate from SpO2 Sensor Respiratory Rate 16 18 17 Blood Pressure Blood Pressure Mean Pulse Oximetry Oxygen Delivery Method Oxygen Flow Rate Sepsis Recent Fever Within 48 Hours Sepsis New/Unexplained Change in Mental Status Sepsis Action Taken by Nursing 02/10/20 14:20 02/10/20 14:30 02/10/20 14:31 Temperature Temperature Source Pulse Rate 93 H 88 88 Pulse Rate from SpO2 Sensor 96 H Respiratory Rate 21 19 20 Blood Pressure 183/101 H 165/88 H Blood Pressure Mean 123 103 Pulse Oximetry 84 L Oxygen Delivery Method Oxygen Flow Rate Sepsis Recent Fever Within 48 Hours Sepsis New/Unexplained Change in Mental Status Sepsis Action Taken by Nursing VITAL SIGNS - Vital signs and nursing notes were reviewed. GENERAL - 74-year-old female appearing ill. Communicates well with provider and answers questions appropriately. SKIN - Without rashes. HEAD - NC/AT. EYES - PERRL with EOMI bilaterally. Sclera anicteric. Palpebral conjunctiva pink and moist with no injection noted. EARS - No deformities of external structures noted on gross examination bilaterally. No pain elicited with palpation of the tragus bilaterally. External auditory canals without discharge or otorrhea. Tympanic membranes pearly gerard without retraction or bulging. No fluid or purulent material visualized behind the TM. Handle of malleus, umbo, cone of light, pars tensa/flaccid all easily visualized. NOSE - Midline and without cyanosis. No epistaxis or purulent drainage noted. Septum midline without deviation or septal hematoma noted. MOUTH/OROPHARYNX - Without perioral cyanosis. Buccal mucosa pink and moist and without leukoplakia. Tongue midline with equal elevation of palate bilaterally. No tonsillar hypertrophy, erythema, or exudates noted. dentition noted. NECK - Neck with FROM. Supple to palpation. lymphadenopathy noted. No nuchal rigidity. LUNGS - Chest wall symmetric without accessory muscle use, intercostals retractions, or central cyanosis. Normal vesicular breath sounds CTA B/L. No wheezes, rales, or rhonchi appreciated. CARDIAC - RRR with S1/S2. No murmur, rubs, or gallops appreciated. ABDOMEN - + tenderness LLQ EXTREMITIES - No clubbing or peripheral cyanosis. No pretibial edema present. +3/5 radial, posterior tibial, and dorsalis pedis pulses palpated throughout. +5/5 strength noted in UE/LE bilaterally. NEUROLOGIC - Cranial nerves II through XII grossly intact. Sensory intact to light touch throughout. Patellar reflexes +2/4. PSYCH - A&Ox3 and cooperates fully with examiner. Pt is very pleasant and interacts well with examiner. Course Administered Medications Hydromorphone HCl (Hydromorphone Inj 0.5 Mg/0.5 Ml Syr) 0.5 mg IV Q15M PRN PRN Reason: Pain Stop: 02/24/20 12:50 Last Admin: 02/10/20 13:23 Dose: 0.5 mg Documented by: [id number] Doxycycline Hyclate 100 mg/ (Dextrose) 110 mls @ 50 mls/hr IV BID@0800,1999 HUSSEIN Stop: 02/17/20 16:59 Last Admin: 02/10/20 17:40 Dose: 50 mls/hr Documented by: [id number] Discontinued Medications Albuterol (Albuterol Hfa 8 Gm Inhaler) 2 puffs INH NOW ONE Stop: 02/10/20 12:50 Last Admin: 02/10/20 13:31 Dose: 2 puffs Documented by: [id number] Dexamethasone (Dexamethasone Sod Inj 10 Mg/Ml Vial) 10 mg IV NOW ONE Stop: 02/10/20 12:50 Last Admin: 02/10/20 13:26 Dose: 10 mg Documented by: [id number] Acetaminophen (Ofirmev) 1,000 mg in 100 mls @ 400 mls/hr IV NOW STA Stop: 02/10/20 13:04 Last Infusion: 02/10/20 13:40 Dose: 0 mls/hr Documented by: [id number] Admin: 02/10/20 13:24 Dose: 400 mls/hr Documented by: [id number] Cefepime HCl (Maxipime) 2,000 mg in 20 mls @ 5 mls/min IV NOW STA Stop: 02/10/20 12:53 Last Admin: 02/10/20 13:31 Dose: 5 mls/min Documented by: [id number] Remdesivir 200 mg/ Sodium (Chloride) 250 mls @ 125 mls/hr IV ONE ONE; Protocol Stop: 02/10/20 18:59 Last Admin: 02/10/20 17:40 Dose: 125 mls/hr Documented by: [id number] Piperacillin Sod/Tazobactam (Sod 3.375 gm/ Dextrose) 115 mls @ 28.75 mls/hr IV Q8H [facility]; Protocol Stop: 02/17/20 16:44 Last Admin: 02/10/20 17:40 Dose: Not Given Documented by: [id number] Piperacillin Sod/Tazobactam (Sod 3.375 gm/ Dextrose) 115 mls @ 230 mls/hr IV ONE ONE; Protocol Stop: 02/10/20 17:29 Last Infusion: 02/10/20 18:15 Dose: 0 mls/hr Documented by: [id number] Admin: 02/10/20 17:40 Dose: 230 mls/hr Documented by: [id number] Ondansetron HCl (Ondansetron Inj 2 Mg/Ml 2 Ml Vial) 4 mg IV NOW STA Stop: 02/10/20 12:52 Last Admin: 02/10/20 13:21 Dose: 4 mg Documented by: [id number] Medical Decision Making Differential Diagnosis Appendicitis, ovarian cyst, ovarian torsion, ectopic , TOA, PID, infections, diverticulitis, UTI, obstruction, mesenteric ischemia, aortic pathology, inflammatory bowel disease, renal colic, PUD, pancreatitis, biliary pathology, hernia, volvulus, constipation, as well as other pathologies. Medical Records Attestation: I reviewed the patient's medical records. Home Medications Current Medication List: was personally reviewed by me Laboratory Data Attestation: I reviewed the patient's lab results. Result diagrams: 02/10/20 12:18 02/10/20 12:18 Lab Results 02/10/20 02/10/20 02/10/20 Range/Units 12:18 12:18 12:18 WBC 6.52 (4.8-10.8) K/uL RBC 4.72 (4.2-5.4) M/uL Hgb 15.4 (12.0-16.0) g/dL POC Hgb (12.0-16.0) g/dl Hct 45.9 (37-47) % POC Hct (37-47) % MCV 97.2 (80-100) fL MCH 32.6 (25-34) pg MCHC 33.6 (32-36) g/dL RDW Std Deviation 52.3 H (36.4-46.3) fL RDW Coeff of Bryan 14.7 H (11.5-14.5) % Plt Count 246 (130-400) K/uL MPV 9.8 (7.4-10.4) fL Immature Gran % (Auto) 0.5 % Neut % (Auto) 77.3 % Lymph % (Auto) 13.3 % Elliott % (Auto) 8.4 % Eos % (Auto) 0.3 % Baso % (Auto) 0.2 % Neut # (Auto) 5.04 (1.4-6.5) K/uL Lymph # (Auto) 0.87 L (1.2-3.4) K/uL Elliott # (Auto) 0.55 (0.11-0.59) K/uL Eos # (Auto) 0.02 (0-0.5) K/uL Baso # (Auto) 0.01 (0-0.2) K/uL Immature Gran # (Auto) 0.03 H (0.00-0.02) K/uL ESR (0-21) mm/hr PT 12.0 (9.0-12.0) Seconds INR 1.1 (0.9-1.1) APTT 32.1 H (21.0-31.0) Seconds PTT Ratio 1.2 POC Sodium (135-144) mmol/L Sodium 136 (136-145) mmol/L POC Potassium (3.3-5.0) mmol/L Potassium 3.8 (3.5-5.1) mmol/L POC Chloride (101-112) mmol/L Chloride 101 (98-107) mmol/L Carbon Dioxide 27 (21-32) mmol/L POC Total CO2 (24-31) mmol/L Anion Gap 8.0 (3-11) POC Anion Gap (16-25) mmol/L POC BUN (7-18) mg/dl BUN 9 (7-18) mg/dl Creatinine 0.62 (0.6-1.2) mg/dl POC Creatinine (0.6-1.3) mg/dl Est Cr Clr Drug Dosing 100.7 ml/min Est GFR ( Amer) 103.0 Est GFR (Non-Af Amer) 88.8 BUN/Creatinine Ratio 13.6 (10-20) Glucose 115 H (70-99) mg/dl POC Glucose (other) (70-99) mg/dl Lactate (0.4-2.0) mmol/L Calcium 8.4 L (8.5-10.1) mg/dl POC Ioniz Calcium Eriberto (1.12-1.32) mmol/l Magnesium 1.8 (1.8-2.4) mg/dl Ferritin (8-388) ng/ml Total Bilirubin 0.6 (0.2-1) mg/dl AST 30 (15-37) U/L ALT 22 (12-78) U/L Alkaline Phosphatase 52 (45-117) U/L Lactate Dehydrogenase (84-246) U/L Troponin I 0.017 (0-0.045) ng/ml C-Reactive Protein (0-0.29) mg/dl Total Protein 6.8 (6.4-8.2) gm/dl Albumin 2.9 L (3.4-5.0) gm/dl Globulin 3.9 (2.5-4.0) gm/dl Albumin/Globulin Ratio 0.7 L (0.9-2) Procalcitonin (0-0.5) ng/ml COVID-19 Eval Order SARS-CoV-2, RNA, NAAT (NEGATIVE) Blood Type Antibody Screen 02/10/20 02/10/20 02/10/20 Range/Units 12:18 12:18 12:18 WBC (4.8-10.8) K/uL RBC (4.2-5.4) M/uL Hgb (12.0-16.0) g/dL POC Hgb (12.0-16.0) g/dl Hct (37-47) % POC Hct (37-47) % MCV (80-100) fL MCH (25-34) pg MCHC (32-36) g/dL RDW Std Deviation (36.4-46.3) fL RDW Coeff of Bryan (11.5-14.5) % Plt Count (130-400) K/uL MPV (7.4-10.4) fL Immature Gran % (Auto) % Neut % (Auto) % Lymph % (Auto) % Elliott % (Auto) % Eos % (Auto) % Baso % (Auto) % Neut # (Auto) (1.4-6.5) K/uL Lymph # (Auto) (1.2-3.4) K/uL Elliott # (Auto) (0.11-0.59) K/uL Eos # (Auto) (0-0.5) K/uL Baso # (Auto) (0-0.2) K/uL Immature Gran # (Auto) (0.00-0.02) K/uL ESR (0-21) mm/hr PT (9.0-12.0) Seconds INR (0.9-1.1) APTT (21.0-31.0) Seconds PTT Ratio POC Sodium (135-144) mmol/L Sodium (136-145) mmol/L POC Potassium (3.3-5.0) mmol/L Potassium (3.5-5.1) mmol/L POC Chloride (101-112) mmol/L Chloride (98-107) mmol/L Carbon Dioxide (21-32) mmol/L POC Total CO2 (24-31) mmol/L Anion Gap (3-11) POC Anion Gap (16-25) mmol/L POC BUN (7-18) mg/dl BUN (7-18) mg/dl Creatinine (0.6-1.2) mg/dl POC Creatinine (0.6-1.3) mg/dl Est Cr Clr Drug Dosing ml/min Est GFR ( Amer) Est GFR (Non-Af Amer) BUN/Creatinine Ratio (10-20) Glucose (70-99) mg/dl POC Glucose (other) (70-99) mg/dl Lactate 1.1 (0.4-2.0) mmol/L Calcium (8.5-10.1) mg/dl POC Ioniz Calcium Eriberto (1.12-1.32) mmol/l Magnesium (1.8-2.4) mg/dl Ferritin (8-388) ng/ml Total Bilirubin (0.2-1) mg/dl AST (15-37) U/L ALT (12-78) U/L Alkaline Phosphatase (45-117) U/L Lactate Dehydrogenase (84-246) U/L Troponin I (0-0.045) ng/ml C-Reactive Protein (0-0.29) mg/dl Total Protein (6.4-8.2) gm/dl Albumin (3.4-5.0) gm/dl Globulin (2.5-4.0) gm/dl Albumin/Globulin Ratio (0.9-2) Procalcitonin < 0.05 (0-0.5) ng/ml COVID-19 Eval [email or web address] SARS-CoV-2, RNA, NAAT (NEGATIVE) Blood Type Antibody Screen 02/10/20 02/10/20 02/10/20 Range/Units 12:18 12:41 13:09 WBC (4.8-10.8) K/uL RBC (4.2-5.4) M/uL Hgb (12.0-16.0) g/dL POC Hgb 16.0 (12.0-16.0) g/dl Hct (37-47) % POC Hct 47 (37-47) % MCV (80-100) fL MCH (25-34) pg MCHC (32-36) g/dL RDW Std Deviation (36.4-46.3) fL RDW Coeff of Bryan (11.5-14.5) % Plt Count (130-400) K/uL MPV (7.4-10.4) fL Immature Gran % (Auto) % Neut % (Auto) % Lymph % (Auto) % Elliott % (Auto) % Eos % (Auto) % Baso % (Auto) % Neut # (Auto) (1.4-6.5) K/uL Lymph # (Auto) (1.2-3.4) K/uL Elliott # (Auto) (0.11-0.59) K/uL Eos # (Auto) (0-0.5) K/uL Baso # (Auto) (0-0.2) K/uL Immature Gran # (Auto) (0.00-0.02) K/uL ESR (0-21) mm/hr PT (9.0-12.0) Seconds INR (0.9-1.1) APTT (21.0-31.0) Seconds PTT Ratio POC Sodium 136 (135-144) mmol/L Sodium (136-145) mmol/L POC Potassium 3.9 (3.3-5.0) mmol/L Potassium (3.5-5.1) mmol/L POC Chloride 96 L (101-112) mmol/L Chloride (98-107) mmol/L Carbon Dioxide (21-32) mmol/L POC Total CO2 28 (24-31) mmol/L Anion Gap (3-11) POC Anion Gap 16.0 (16-25) mmol/L POC BUN 8 (7-18) mg/dl BUN (7-18) mg/dl Creatinine (0.6-1.2) mg/dl POC Creatinine 0.6 (0.6-1.3) mg/dl Est Cr Clr Drug Dosing ml/min Est GFR ( Amer) Est GFR (Non-Af Amer) BUN/Creatinine Ratio (10-20) Glucose (70-99) mg/dl POC Glucose (other) 117 H (70-99) mg/dl Lactate (0.4-2.0) mmol/L Calcium (8.5-10.1) mg/dl POC Ioniz Calcium Eriberto 1.06 L (1.12-1.32) mmol/l Magnesium (1.8-2.4) mg/dl Ferritin (8-388) ng/ml Total Bilirubin (0.2-1) mg/dl AST (15-37) U/L ALT (12-78) U/L Alkaline Phosphatase (45-117) U/L Lactate Dehydrogenase (84-246) U/L Troponin I (0-0.045) ng/ml C-Reactive Protein (0-0.29) mg/dl Total Protein (6.4-8.2) gm/dl Albumin (3.4-5.0) gm/dl Globulin (2.5-4.0) gm/dl Albumin/Globulin Ratio (0.9-2) Procalcitonin (0-0.5) ng/ml COVID-19 Eval Order SARS-CoV-2, RNA, NAAT POSITIVE A* (NEGATIVE) Blood Type O Positive Antibody Screen NEGATIVE 02/10/20 02/10/20 02/10/20 Range/Units 13:09 13:09 13:09 WBC (4.8-10.8) K/uL RBC (4.2-5.4) M/uL Hgb (12.0-16.0) g/dL POC Hgb (12.0-16.0) g/dl Hct (37-47) % POC Hct (37-47) % MCV (80-100) fL MCH (25-34) pg MCHC (32-36) g/dL RDW Std Deviation (36.4-46.3) fL RDW Coeff of Bryan (11.5-14.5) % Plt Count (130-400) K/uL MPV (7.4-10.4) fL Immature Gran % (Auto) % Neut % (Auto) % Lymph % (Auto) % Elliott % (Auto) % Eos % (Auto) % Baso % (Auto) % Neut # (Auto) (1.4-6.5) K/uL Lymph # (Auto) (1.2-3.4) K/uL Elliott # (Auto) (0.11-0.59) K/uL Eos # (Auto) (0-0.5) K/uL Baso # (Auto) (0-0.2) K/uL Immature Gran # (Auto) (0.00-0.02) K/uL ESR 45 H (0-21) mm/hr PT (9.0-12.0) Seconds INR (0.9-1.1) APTT (21.0-31.0) Seconds PTT Ratio POC Sodium (135-144) mmol/L Sodium (136-145) mmol/L POC Potassium (3.3-5.0) mmol/L Potassium (3.5-5.1) mmol/L POC Chloride (101-112) mmol/L Chloride (98-107) mmol/L Carbon Dioxide (21-32) mmol/L POC Total CO2 (24-31) mmol/L Anion Gap (3-11) POC Anion Gap (16-25) mmol/L POC BUN (7-18) mg/dl BUN (7-18) mg/dl Creatinine (0.6-1.2) mg/dl POC Creatinine (0.6-1.3) mg/dl Est Cr Clr Drug Dosing ml/min Est GFR ( Amer) Est GFR (Non-Af Amer) BUN/Creatinine Ratio (10-20) Glucose (70-99) mg/dl POC Glucose (other) (70-99) mg/dl Lactate (0.4-2.0) mmol/L Calcium (8.5-10.1) mg/dl POC Ioniz Calcium Eriberto (1.12-1.32) mmol/l Magnesium (1.8-2.4) mg/dl Ferritin 212.3 (8-388) ng/ml Total Bilirubin (0.2-1) mg/dl AST (15-37) U/L ALT (12-78) U/L Alkaline Phosphatase (45-117) U/L Lactate Dehydrogenase 363 H (84-246) U/L Troponin I (0-0.045) ng/ml C-Reactive Protein 7.04 H (0-0.29) mg/dl Total Protein (6.4-8.2) gm/dl Albumin (3.4-5.0) gm/dl Globulin (2.5-4.0) gm/dl Albumin/Globulin Ratio (0.9-2) Procalcitonin (0-0.5) ng/ml COVID-19 Eval Order SARS-CoV-2, RNA, NAAT (NEGATIVE) Blood Type Antibody Screen Imaging Data Radiologist's Impression: [place], [place] [phone] CT Scan Report Patient: PACO JOHNSON Admit Date: 02/10/20 MR#: [id number] Address1: Elieser HARVEY Acct ID:[id number] Address2: Date: 1945 [facility] Zip: [place] [address] Age: 74 Location: 2E Sex: F Room/Bed: [facility] Att Phy: Renee Mares MD Diagnosis: COVID-19, HYPOXIA Fransisca Phy: Merlin Barrios MD Service Date: 02/10/20 Fam Phy: Interpreting Phy: Stevo Jackson MD Admit Phy: Renee Mares MD Ordering Phy: Johnathon Bocanegra MD cc: ~ CT SCAN OF THE ABDOMEN AND PELVIS WITH IV CONTRAST CLINICAL HISTORY: Left lower quadrant abdominal pain. COMPARISON STUDY: Abdominal CT dated 10/30/2019. TECHNIQUE: Following the IV administration of 94 cc of Optiray 320, CT scan of the abdomen and pelvis is performed from the lung bases to the proximal femora. Images are reviewed in the axial, sagittal, and coronal planes. IV contrast was administered without complication. A dose lowering technique was utilized adhering to the principles of ALARA. CT DOSE: 973.56 mGycm FINDINGS: Lung bases: The heart is normal in size and without pericardial effusion. There is airspace consolidation at the right lung base. Atelectasis is seen at the left lung base. A punctate calcified granuloma seen in the right lower lobe. No pleural effusion is identified. There is a small hiatal hernia. Liver: The contrast-enhanced liver is normal in size, contour, and attenuation. There is no intrahepatic biliary ductal dilatation. The hepatic veins and portal veins are patent. Gallbladder: Unremarkable. Spleen: Normal in size and attenuation. Pancreas: Moderately atrophic and grossly unremarkable. Adrenal glands: Mild nodularity of the adrenal glands is unchanged. Kidneys: The contrast enhanced kidneys demonstrate cortical atrophy and are without hydronephrosis. The kidneys enhance symmetrically. Abdominal vasculature: The abdominal aorta is normal in course and caliber noting mild atherosclerotic calcification. Bowel: There is mild wall thickening edema of the gastric antrum with surrounding infiltration. This is best seen on axial image #165. A 1 cm perigastric lymph node is seen on image #176. There is mild to moderate dive rticulosis of the left colon without CT evidence of acute diverticulitis. No bowel obstruction is seen. The appendix is well-visualized and normal. Peritoneum: There is no intraperitoneal free air or abdominal ascites. There is evidence of previous ventral hernia repair. A fat-containing ventral hernia is seen in the right upper quadrant abdominal wall on image #111. A fat-containing umbilical hernia is seen on image #251. Lymphadenopathy: None. Pelvic viscera: The bladder, uterus, and adnexa are normal as visualized. Skeletal structures: The skeletal structures are osteopenic. There is moderate lumbosacral spondylosis. Postlaminectomy change is seen in the lower lumbar spine. No lytic or blastic lesions are seen. IMPRESSION: 1. There is right basilar airspace consolidation. Correlate clinically for evidence of pneumonia/aspiration pneumonitis. 2. There is mild wall thickening and edema involving the gastric antrum with faint perigastric inflammation. This could be seen in the setting of gastritis or possibly ulcer disease and clinical correlation will be required. Nonemergent follow-up with endoscopy is recommended to assess for the less likely possibility of underlying mass lesion. 3. There is mild to moderate diverticulosis of the left colon without CT evidence of acute diverticulitis. 4. Additional findings as above. ACT 112: Negative or not required by law. Electronically signed by: Stevo Jackson M.D. 02/10/2020 3:59 PM Dictated: 02/10/20 1549 Transcribed: 02/10/201548 [facility], [id number] XRay Report Patient: PACO JOHNSON Date: 02/10/20MR#: [id number]: [address] ID:[id number]: Date: 1945[facility] Zip: [place], [place] [address]Hko: 74Location: EDSex: FRoom/Bed:Att Phy:Diagnosis: Abd pain Fever HypoxiaPri Phy: Merlin Barrios MDService Date: 02/10/20Fa Phy:Interpreting Phy: Stevo Jackson MDAdmit Phy: Ordering Phy: Johnathon Bocanegra MD cc: ~ SINGLE VIEW CHEST CLINICAL HISTORY: Sepsis. FINDINGS: An AP, portable, upright chest radiograph is compared to study dated 02/03/2020. The examination is degraded by portable technique and patient rotation. The heart is enlarged. There is mild pulmonary vascular congestion. Airspace consolidation is seen at both lung bases. No large pleural effusion or pneumothorax is seen. The skeletal structures are osteopenic. The bony thorax is grossly intact. IMPRESSION: 1. Cardiomegaly with mild pulmonary vascular congestion. 2. Airspace consolidation is seen at both lung bases. Correlate clinically for evidence of pneumonia/aspiration pneumonitis. Radiographic follow-up to resolution is recommended. ACT 112: Negative or not required by law. Electronically signed by: Stevo Jackson M.D. 02/10/2020 1:23 PM Dictated: 02/10/20 1322Transcribed: 02/10/20 1322 ECG Data Attestation: I personally reviewed and interpreted this ECG as follows: Indication: abdominal pain Rate (beats per minute): 88 Rhythm: sinus tachycardia Findings: + mobitz I block; no ST depression and no ST elevation Comparison ECG Date: from (02/03/2020) Change: the following changes noted (Sinus Tach with 2nd degree has replaced NSR) MDM Narrative This 74-year-old female who presents emergency department complaining generalized aches and pains. Patient is running a fever here. She is positive for Covid. She is hypoxic and is requiring oxygen. She was placed on oxygen and given 10 mg of Decadron. She was also started on cefepime. She appears to have Covid pneumonia on her chest x-ray. She does not have an elevation in her white blood cell count. I did discuss these findings with the hospitalist service due to the fact that the patient is requiring oxygen. She was also typed and screened Patient was seen and evaluated as above in room C10. Review was performed of nursing notes and vital signs. I did review pertinent previous visits and patient history. After obtaining a thorough history and physical examination the above work up was performed. An order was placed for continuous cardiac monitoring. The monitor shows a rate of 82 with Normal SInus rhythm. The patient was evaluated during the global COVID-19 pandemic, and that diagnosis was suspected/considered upon their initial presentation. Their evaluation, treatment and testing was consistent with current guidelines for patients who present with complaints or symptoms that may be related to COVID- 19. Impression & Plan COVID-19, Pneumonia, Hypoxia Critical Care Time I have personally spent greater than 90 minutes of critical care time in the direct management of this patient. This includes bedside care, interpretation of diagnostic studies, and testing, discussion with consultants, patient, and family members, and other required patient management activities. This 90 minutes is in excess of all separately billable procedures. Discharge Plan Visit Data Chief Complaint: Abdominal Pain Stated Complaint: Abd pain Fever Hypoxia ED Provider: Johnathon Bocanegra Discharge Problem: COVID-19, Pneumonia, Hypoxia Patient Disposition: Admitted As Inpatient Discharge Instructions Interventions: ED Discharge Assessment Last Done: 02/10/20 15:15 Discharge Problem: Pneumonia Qualifiers: Pneumonia type: due to unspecified organism Laterality: unspecified laterality Lung location: unspecified part of lung Qualified Code(s): J18.9 - Pneumonia, unspecified organism
[2020-02-10] MEDS ORDERED: PIPERACILLIN/TAZOBACTAM 3.375 GM in DEXTROSE 5% 100 ML IV ONE (17:00)
[2020-02-10] MEDS ORDERED: REMDESIVIR 200 MG in SODIUM CHLORIDE 0.9% 210 ML IV ONE (17:00)
--- NOTE | 2020-02-10 17:01 | Electrocardiogram Report ---
Test Reason : Blood Pressure : / mmHG Vent. Rate : 088 BPM Atrial Rate : 101 BPM P-R Int : 000 ms QRS Dur : 098 ms QT Int : 332 ms P-R-T Axes : 064 -03 102 degrees QTc Int : 401 ms Sinus tachycardia with frequent Premature atrial complexes Nonspecific ST and T wave abnormality Abnormal ECG When compared with ECG of 03-FEB-2020 16:02, No significant change Confirmed by Adin Wood ([id number]) on 02/10/2020 5:00:57 PM Referred By: Confirmed By:Adin Wood
[2020-02-10] MEDS: DOXYCYCLINE HYCLATE 100 MG in DEXTROSE 5% 100 ML IV SCH (17:40)
[2020-02-10] MEDS: ENOXAPARIN INJ 40 MG/0.4 ML SYR SQ SCH (20:22)
[2020-02-10] MEDS ORDERED: oxyCODONE/ACETAMINOPHEN 5mg/325mg TAB PO PRN (20:36)
[2020-02-10] MEDS ORDERED: SODIUM CHLORIDE 0.9% 1000ML 1,000 ML IV SCH (20:45)
[2020-02-10] MEDS: SODIUM CHLORIDE 0.9% 10ML FLUSH IV SCH (21:42)
[2020-02-10] MEDS: SUCRALFATE 1 GM/10 ML UDC PO SCH (21:44)
[2020-02-10] MEDS: lisinopril 10 MG TAB PO SCH (21:44)
[2020-02-10] MEDS: ASPIRIN 81 MG ECTAB PO SCH (21:44)
[2020-02-10] MEDS: PARoxetine HCL 20 MG TAB PO SCH (21:45)
[2020-02-10] MEDS: ROSUVASTATIN CALCIUM 20 MG TAB PO SCH (21:45)
[2020-02-10] MEDS: OMEGA-3 (PURIFIED FISH OIL) 1 GM CAP PO SCH (21:45)
[2020-02-10] MEDS: CYANOCOBALAMIN 500 MCG TABLET (VITAMIN B-12) PO SCH (21:46)
[2020-02-10] MEDS: ALPRAZolam 0.5 MG TABLET PO SCH (21:48)
[2020-02-10] MEDS: PIPERACILLIN/TAZOBACTAM 3.375 GM in DEXTROSE 5% 100 ML IV SCH (21:49)
[2020-02-11] MEDS: PIPERACILLIN/TAZOBACTAM 3.375 GM in DEXTROSE 5% 100 ML IV SCH ×2 (05:52→13:21)
[2020-02-11 06:20] LABS: Basophils # (auto) 0.01 K/uL (0-0.2); Basophils % (auto) 0.2 %; Hematocrit (blood only) 43.6 % (37-47); Hemoglobin 14.2 g/dL (12.0-16.0); Immature Granulocytes # (auto) 0.05 K/uL (0.00-0.02); Immature Granulocytes % (auto) 1.2 %; Lymphocytes # (auto) 0.82 K/uL (1.2-3.4); Lymphocytes % (auto) 19.4 %; Mean Corpuscular Hemoglobin 32.2 pg (25-34); Mean Corpuscular Hgb Conc 32.6 g/dL (32-36); Mean Corpuscular Volume 98.9 fL (80-100); Mean Platelet Volume 10.1 fL (7.4-10.4); Monocytes # (auto) 0.33 K/uL (0.11-0.59); Monocytes % (auto) 7.8 %; Neutrophils # (auto) 3.02 K/uL (1.4-6.5); Neutrophils % (auto) 71.4 %; Platelet Count 262 K/uL (130-400); RDW Coefficient of Variation 14.8 % (11.5-14.5); RDW Standard Deviation 53.7 fL (36.4-46.3); Red Blood Count 4.41 M/uL (4.2-5.4); White Blood Count 4.23 K/uL (4.8-10.8)
[2020-02-11 06:42] LABS: Albumin Level 2.4 gm/dl (3.4-5.0); Bilirubin Direct 0.2 mg/dl (0-0.2); Calcium 8.3 mg/dl (8.5-10.1); Creatinine Clr Calc Pharmacy 82.3 ml/min; Est GFR (African American) 92.5; Est GFR (Non-African American) 79.8
[2020-02-11 06:45] LABS: Bilirubin,Total 0.4 mg/dl (0.2-1); Total Protein 5.8 gm/dl (6.4-8.2)
[2020-02-11] MEDS: DOXYCYCLINE HYCLATE 100 MG in DEXTROSE 5% 100 ML IV SCH ×2 (08:06→20:34)
[2020-02-11] MEDS: CALCIUM 600MG + VIT D 400 IU TAB PO SCH ×2 (08:09→20:28)
[2020-02-11] MEDS: UMECLIDINIUM BROMIDE 62.5MCG/BLISTER 7 PUFFS/INHALER INH SCH (08:09)
[2020-02-11] MEDS: tiZANidine HCL 4 MG TABLET PO PRN ×2 (08:09→20:26)
[2020-02-11] MEDS: ASCORBIC ACID 500 MG TAB PO SCH (08:09)
[2020-02-11] MEDS: FLUTICASONE/VILANTEROL 100/25MCG 14 PUFFS/INHALER INH SCH (08:09)
[2020-02-11] MEDS: dexAMETHasone 6 MG in SYRINGE 0 ML IV SCH (08:09)
[2020-02-11] MEDS: SUCRALFATE 1 GM/10 ML UDC PO SCH ×4 (08:10→20:29)
[2020-02-11] MEDS: PANTOprazole 40 MG TAB PO SCH (08:10)
[2020-02-11] MEDS: ENOXAPARIN INJ 40 MG/0.4 ML SYR SQ SCH ×2 (08:10→20:26)
--- NOTE | 2020-02-11 16:10 | Hospitalist Progress Note ---
Date of Service February 11, 2020 Assessment & Plan (1) Pneumonia due to COVID-19 virus: Symptoms reported since post op period, roughly 01/22. Usually patient is on no oxygen supplementation during the day and uses 2-3 L PM at night. Uses daily inhalers for a h/o COPD and reports compliance with these. Recent GI issues thought to be COVID related. Cont supportive care efforts. Cont dexamethasone, remdesivir. Will further discuss convalescent plasma with her moving forward as notes do not reflect an initial discussion about this. Check inflammatory markers in am. Receiving broad abx in addition to this including Zosyn and doxycycline. Will change this to Rocephin and doxycycline to complete the course. Although there was concern for aspiration, and the patient has had some vomiting reported at home she is clinically improved overall, and passed her speech evaluation today without issue. It is noted that procalcitonin was negative initially and the CXR revealed bilateral infiltrates, with a RLL infiltrate more clearly seen on the CT a/p. Throat spray PRN, start scheduled Tylenol for covid-associated muscle aches. Avoid narcotics if possible as patient has GI upset from COVID. (2) Hypoxia: Inceased needs from baseline 2/ #1. Cont current medical management and wean as tolerated. (3) CAD (coronary artery disease): chronic, stable, no events on telemetry review overnight. Cont current medical therapy. (4) COPD (chronic obstructive pulmonary disease): chronic, stable, not in exacerbation. Cont current inhaler therapy and dexamethasone as above. (5) Hypertension: controlled, cont lisinopril per home regimen. (6) Abnormal CT scan, stomach: There is mild wall thickening edema of the gastric antrum with surrounding infiltration. Mass cannot be excluded and a nonurgent endoscopic follow-up is recommended. Cont supportive care for upset stomach/nausea PRN. (7) DVT prophylaxis: Lovenox 40mg SQ q12h Full Code-sone is mPOA Dispo-cont monitoring in COVID unit. Plan for home when medically stable but may need PT/OT to work with her if not from a physical standpoint, she could use the motivation. Tylenol will also help with the aches and hopefully help to mobilize her more around the room. Pt instructed to prone when able. She verbalized understanding with intent to change position as much as able. Rosa Olvera DO [facility] Hospitalist Admission and Anticipated Discharge Date Admission Date: February 10, 2020 Subjective 74 yo F with symptoms reported for the past 3 weeks, admitted on 02/09 with COVID-19 pneumonia reports having all over body aches feels nauseous with occasional vomiting since all this started. feels overall clinically better today than yesterday thought she may have gotten infected from a recent rehab stay for her R knee where she was post-op. states she was seen by her ortho post-op and had stitches removed. knee is feeling well. some sore throat. Review of Systems Review of Systems: All systems reviewed & are unremarkable except as noted in Subjective Physical Exam Physical Exam: CONSTITUTIONAL: WNWD, vitals as above, generally well- appearing EYES: normal conjunctivae, no scleral icterus ENT: external ear and nose normal, MMM NECK: trachea midline RESPIRATORY: clear to auscultation bilaterally, no crackles, rales or wheezes, normal respiratory effort CARDIOVASCULAR: regular rate and rhythm, S1 and 2 heard without murmurs, gallops or rubs, no JVD, no peripheral edema GASTROINTESTINAL: soft, nontender, protuberant, no distension, no guarding. MUSCULOSKELETAL: strength 5/5 throughout, head is normocephalic and atraumatic, painful with movement around the bed. SKIN: warm and dry NEUROLOGIC: CN 2-12 grossly intact, normal cognition, normal speech, no tremor. No gross focal deficits. PSYCHIATRIC: alert cooperative and oriented to person, place and time. Results & Data Results & Data ([facility]) Vital Signs (Past 12 Hours) Vital Signs Temp Pulse Resp BP BP Pulse Ox 02/11/20 15:57 65 20 119/63 91 02/11/20 12:47 36.6 C 70 24 128/68 02/11/20 07:23 36.6 C 70 20 142/85 H 90 02/11/20 04:21 36.6 C 72 18 143/95 H 90 Laboratory Results Short CBC 02/11/20 Range/Units 05:37 WBC 4.23 L (4.8-10.8) K/uL Hgb 14.2 (12.0-16.0) g/dL Hct 43.6 (37-47) % Plt Count 262 (130-400) K/uL BMP 02/11/20 05:37 Sodium 138 Potassium 4.0 Chloride 103 Carbon Dioxide 28 BUN 17 D Creatinine 0.74 Glucose 130 H Calcium 8.3 L Liver Function 02/11/20 Range/Units 05:37 Total Bilirubin 0.4 (0.2-1) mg/dl Direct Bilirubin 0.2 (0-0.2) mg/dl AST 24 (15-37) U/L ALT 17 (12-78) U/L Alkaline Phosphatase 44 L (45-117) U/L Albumin 2.4 L (3.4-5.0) gm/dl Medications Administered Current Inpatient Medications Acetaminophen (Acetaminophen 325 Mg Tab) 650 mg PO Q4H PRN PRN Reason: Pain or Fever Stop: 03/11/20 16:24 Alprazolam (Alprazolam 0.5 Mg Tablet) 1 mg PO HS@1999 [facility] Stop: 03/11/20 20:59 Last Admin: 02/10/20 21:48 Dose: 1 mg Documented by: Ascorbic Acid (Ascorbic Acid 500 Mg Tab) 500 mg PO DAILY@0800 [facility] Stop: 03/12/20 07:59 Last Admin: 02/11/20 08:09 Dose: 500 mg Documented by: Aspirin (Aspirin 81 Mg Ectab) 81 mg PO HS@1999 [facility] Stop: 03/11/20 20:59 Last Admin: 02/10/20 21:44 Dose: 81 mg Documented by: Cyanocobalamin (Cyanocobalamin 500 Mcg Tablet (Vitamin B-12)) 1,000 mcg PO HS@1999 [facility] Stop: 03/11/20 20:59 Last Admin: 02/10/20 21:46 Dose: 1,000 mcg Documented by: Enoxaparin Sodium (Enoxaparin Inj 40 Mg/0.4 Ml Syr) 40 mg SQ Q12H [facility] Stop: 03/11/20 19:59 Last Admin: 02/11/20 08:10 Dose: 40 mg Documented by: Fish Oil ([place]-3 (Purified Fish Oil) 1 Gm Cap) 1 gm PO HS@1999 [facility] Stop: 03/11/20 20:59 Last Admin: 02/10/20 21:45 Dose: 1 gm Documented by: Fluticasone/Vilanterol (Fluticasone/Vilanterol 100/25mcg 14 Puffs/Inhaler) 1 puffs INH DAILY@0800 [facility]; Protocol Stop: 03/12/20 07:59 Last Admin: 02/11/20 08:09 Dose: 1 puffs Documented by: Dexamethasone 6 mg/ Syringe 1.5 mls @ 1 mls/min IV DAILY@0800 [facility] Stop: 02/19/20 08:02 Last Admin: 02/11/20 08:09 Dose: 1 mls/min Documented by: Remdesivir 100 mg/ Sodium (Chloride) 250 mls @ 250 mls/hr IV Q24H [facility]; Protocol Stop: 02/14/20 17:59 Doxycycline Hyclate 100 mg/ (Dextrose) 110 mls @ 50 mls/hr IV BID@ [facility] Stop: 02/17/20 16:59 Last Infusion: 02/11/20 10:55 Dose: Infused Documented by: Piperacillin Sod/Tazobactam (Sod 3.375 gm/ Dextrose) 115 mls @ 28.75 mls/hr IV Q8H [facility]; Protocol Stop: 02/17/20 21:59 Last Admin: 02/11/20 13:21 Dose: 28.8 mls/hr Documented by: Levalbuterol HCl (Levalbuterol Tartrate 15 Gm Hfa.Aer.Ad) 2 puffs INH QID PRN PRN Reason: wheeze Stop: 03/11/20 16:39 Lisinopril (Lisinopril 10 Mg Tab) 10 mg PO QPM@1999 [facility] Stop: 03/11/20 20:59 Last Admin: 02/10/20 21:44 Dose: 10 mg Documented by: Miscellaneous Information (Piperacill/Tazobac Consult Active) 1 ea N/A UD PRN PRN Reason: Consult Stop: 03/11/20 16:35 Multivitamins/Minerals (Calcium 600mg + Vit D 400 Iu Tab) 1 tab PO BID@ [facility] Stop: 03/12/20 07:59 Last Admin: 02/11/20 08:09 Dose: 1 tab Documented by: Nitroglycerin (Nitroglycerin Sl 0.4 Mg/Tab Tab) 0.4 mg SL UD PRN PRN Reason: Chest Pain Stop: 03/11/20 16:24 Oxycodone/Acetaminophen (Oxycodone/Acetaminophen 5mg/325mg Tab) 1 tab PO Q4H PRN PRN Reason: pain Stop: 02/24/20 20:35 Pantoprazole Sodium (Pantoprazole 40 Mg Tab) 40 mg PO QAM [facility] Stop: 03/12/20 08:59 Last Admin: 02/11/20 08:10 Dose: 40 mg Documented by: Paroxetine HCl (Paroxetine Hcl 20 Mg Tab) 60 mg PO HS@1999 [facility] Stop: 03/11/20 20:59 Last Admin: 02/10/20 21:45 Dose: 60 mg Documented by: Rosuvastatin Calcium (Rosuvastatin Calcium 20 Mg Tab) 40 mg PO HS@1999 [facility] Stop: 03/11/20 20:59 Last Admin: 02/10/20 21:45 Dose: 40 mg Documented by: Sodium Chloride (Sodium Chloride 0.9% 10ml Flush) 30 ml IV Q24H [facility] Stop: 02/14/20 17:01 Last Admin: 02/10/20 21:42 Dose: Not Given Documented by: Sucralfate (Sucralfate 1 Gm/10 Ml Udc) 1 gm PO QID [facility] Stop: 03/11/20 20:59 Last Admin: 02/11/20 12:44 Dose: 1 gm Documented by: Sumatriptan Succinate (Sumatriptan Succinate 100 Mg Tab) 100 mg PO UD PRN PRN Reason: Migraine Headache Stop: 03/11/20 20:35 Tizanidine HCl (Tizanidine Hcl 4 Mg Tablet) 4 mg PO TID PRN PRN Reason: MUSCLE SPASMS Stop: 03/11/20 20:35 Last Admin: 02/11/20 08:09 Dose: 4 mg Documented by: Umeclidinium [place] (Umeclidinium [place] 62.5mcg/Blister 7 Puffs/Inhaler) 1 puffs INH DAILY@0800 [facility] Stop: 03/12/20 07:59 Last Admin: 02/11/20 08:09 Dose: 1 puffs Documented by: (1) CAD (coronary artery disease) Associated angina: without angina Coronary Disease-Associated Artery/Lesion type: [place] artery [place] vs. transplanted heart: [place] heart Qualified Code(s): I25.10 - Atherosclerotic heart disease of [place] coronary artery without angina pectoris (2) COPD (chronic obstructive pulmonary disease) COPD type: COPD with acute exacerbation Qualified Code(s): J44.1 - Chronic obstructive pulmonary disease with (acute) exacerbation (3) Hypertension Hypertension type: essential hypertension Qualified Code(s): I10 - Essential (primary) hypertension
[2020-02-11] MEDS: REMDESIVIR 100 MG in SODIUM CHLORIDE 0.9% 230 ML IV SCH (17:19)
[2020-02-11] MEDS ORDERED: CHLORASEPTIC 1.4% SOLN 180 ML BTL MT PRN (20:23)
[2020-02-11] MEDS: ROSUVASTATIN CALCIUM 20 MG TAB PO SCH (20:26)
[2020-02-11] MEDS: ASPIRIN 81 MG ECTAB PO SCH (20:27)
[2020-02-11] MEDS: PARoxetine HCL 20 MG TAB PO SCH (20:28)
[2020-02-11] MEDS: lisinopril 10 MG TAB PO SCH (20:28)
[2020-02-11] MEDS: CYANOCOBALAMIN 500 MCG TABLET (VITAMIN B-12) PO SCH (20:28)
[2020-02-11] MEDS: OMEGA-3 (PURIFIED FISH OIL) 1 GM CAP PO SCH (20:29)
[2020-02-11] MEDS: ALPRAZolam 0.5 MG TABLET PO SCH (20:33)
[2020-02-11] MEDS ORDERED: ACETAMINOPHEN 325 MG TAB PO PRN (21:08)
[2020-02-11] MEDS: SODIUM CHLORIDE 0.9% 10ML FLUSH IV SCH (21:13)
[2020-02-11] MEDS ORDERED: ACETAMINOPHEN 500 MG TAB PO SCH (22:00)
[2020-02-11] MEDS: IBUPROFEN 600 MG TAB PO PRN (22:50)
[2020-02-12 03:50] LABS: Appearance Urine Clear (Clear); Bacteria Urine Automated Negative (Negative); Bilirubin Urine Negative (Negative); Blood Urine Negative (Negative); Color Urine Yellow; Glucose Urine UA Negative (Negative); Ketones Urine Trace (Negative); Leukocyte Esterase Urine Trace (Negative); Nitrite Urine Negative (Negative); Protein Urine Negative (Negative); RBC Urine Automated 0-4 /hpf (0-4); Urobilinogen Urine Negative (Negative); pH Urine 5.5 (4.5-7.5)
[2020-02-12 06:37] LABS: Basophils # (auto) 0.01 K/uL (0-0.2); Basophils % (auto) 0.1 %; Hematocrit (blood only) 39.3 % (37-47); Hemoglobin 13.2 g/dL (12.0-16.0); Immature Granulocytes # (auto) 0.04 K/uL (0.00-0.02); Immature Granulocytes % (auto) 0.4 %; Lymphocytes # (auto) 1.14 K/uL (1.2-3.4); Lymphocytes % (auto) 12.4 %; Mean Corpuscular Hemoglobin 32.6 pg (25-34); Mean Corpuscular Hgb Conc 33.6 g/dL (32-36); Mean Platelet Volume 10.3 fL (7.4-10.4); Monocytes # (auto) 0.72 K/uL (0.11-0.59); Monocytes % (auto) 7.8 %; Neutrophils # (auto) 7.32 K/uL (1.4-6.5); Neutrophils % (auto) 79.3 %; Platelet Count 286 K/uL (130-400); RDW Coefficient of Variation 14.7 % (11.5-14.5); RDW Standard Deviation 53.1 fL (36.4-46.3); Red Blood Count 4.05 M/uL (4.2-5.4); White Blood Count 9.23 K/uL (4.8-10.8)
[2020-02-12 07:06] LABS: BUN Creatinine Ratio 33.3 (10-20); Calcium 8.2 mg/dl (8.5-10.1); Creatinine Clr Calc Pharmacy 78.4 ml/min; Est GFR (African American) 85.5; Est GFR (Non-African American) 73.7; Magnesium 2.2 mg/dl (1.8-2.4); Potassium 3.9 mmol/L (3.5-5.1)
[2020-02-12 07:11] LABS: C Reactive Protein 3.09 mg/dl (0-0.29); Ferritin 163.3 ng/ml (8-388); Phosphorus 3.9 mg/dl (2.5-4.9)
[2020-02-12] MEDS: ASCORBIC ACID 500 MG TAB PO SCH (07:23)
[2020-02-12] MEDS: CALCIUM 600MG + VIT D 400 IU TAB PO SCH ×2 (07:23→20:17)
[2020-02-12] MEDS: cefTRIAXone SODIUM 2,000 MG in DEXTROSE 5% 50 ML IV SCH (07:23)
[2020-02-12] MEDS: DOXYCYCLINE HYCLATE 100 MG in DEXTROSE 5% 100 ML IV SCH ×2 (07:23→20:34)
[2020-02-12] MEDS: UMECLIDINIUM BROMIDE 62.5MCG/BLISTER 7 PUFFS/INHALER INH SCH (07:23)
[2020-02-12] MEDS: dexAMETHasone 6 MG in SYRINGE 0 ML IV SCH (07:23)
[2020-02-12] MEDS: ENOXAPARIN INJ 40 MG/0.4 ML SYR SQ SCH ×2 (07:24→20:17)
[2020-02-12] MEDS: tiZANidine HCL 4 MG TABLET PO PRN (07:24)
[2020-02-12] MEDS: FLUTICASONE/VILANTEROL 100/25MCG 14 PUFFS/INHALER INH SCH (07:24)
[2020-02-12] MEDS: PANTOprazole 40 MG TAB PO SCH (07:25)
[2020-02-12] MEDS: IBUPROFEN 600 MG TAB PO PRN (08:04)
[2020-02-12] MEDS: REMDESIVIR 100 MG in SODIUM CHLORIDE 0.9% 230 ML IV SCH (16:43)
[2020-02-12] MEDS: SODIUM CHLORIDE 0.9% 10ML FLUSH IV SCH (16:43)
--- NOTE | 2020-02-12 18:16 | Hospitalist Progress Note ---
Date of Service February 12, 2020 Assessment & Plan (1) Pneumonia due to COVID-19 virus: (2) Hypoxia: COVID 19 POSITIVE Present on admission with worsening SOB associated with hypoxia, cough and fever CXR showed right basilar airspace consolidation. Correlate clinically for evidence of pneumonia/aspiration pneumonitis. CXR on admission showed airspace consolidation is seen at both lung bases. Inflammatory marker ESR trending down from 45, CRP from 7.04 to 3.09, ferritin wnl and procalcitonin normal Continue dexamethasone and Remdesevir to complete 5 days course Continue oxygen supplement and inhaler therapy Will continue Rocephin and doxy for now for possible aspiration Pneumonia Advised pt to continue with proning Clinically improved (3) CAD (coronary artery disease): Continue aspirin and statin Stable (4) COPD (chronic obstructive pulmonary disease): Continue oxygen supplement and dexamethasone and inaler (5) Hypertension: BP stable Continue Lisinopril per home regimen. (6) Abnormal CT scan, stomach: There is mild wall thickening edema of the gastric antrum with surrounding infiltration. Mass cannot be excluded and a nonurgent endoscopic follow-up is recommended. Will need outpatient follow up Elevated BS Mostly due to IV steroid Will check Hba1c in am Will start on insulin sliding scale (7) DVT prophylaxis: Continue Lovenox 40mg SQ q12h CODE STATUS Full Code Disposition Continue monitoring in COVID unit. Admission and Anticipated Discharge Date Admission Date: February 10, 2020 Subjective Pt was seen and examined Lying in bed with no distress Pt said that she feels a little better She continues to cough a lot She said that her breathing is ok with the oxygen supplement She denies any chest pain, palpitation, dizziness and fever Physical Exam Physical Exam: General- No acute distress Head- atraumatic Eyes- PERRL, EOMI, ENT- oropharynx clear Neck- supple, no JVD Lungs- No wheezing and no crackles Heart- regular rhythm; no murmur Abdomen- normal bowel sounds, soft, nontender Extremities- no calf tenderness Neuro- alert, oriented x 3; PERRL, EOMI; no facial palsy; no dysarthria Skin- warm & dry Results & Data Results & Data ([facility]) Vital Signs (Past 12 Hours) Vital Signs Temp Pulse Resp BP Pulse Ox 02/12/20 16:13 36.8 C 56 L 18 123/67 92 11/19/20 12:07 36.9 C 50 L 20 115/66 92 02/12/20 08:43 36.6 C 68 18 111/63 93 (1) CAD (coronary artery disease) Associated angina: without angina Coronary Disease-Associated Artery/Lesion type: [place] artery [place] vs. transplanted heart: [place] heart Qualified Code(s): I25.10 - Atherosclerotic heart disease of [place] coronary artery without angina pectoris (2) COPD (chronic obstructive pulmonary disease) COPD type: COPD with acute exacerbation Qualified Code(s): J44.1 - Chronic obstructive pulmonary disease with (acute) exacerbation (3) Hypertension Hypertension type: essential hypertension Qualified Code(s): I10 - Essential (primary) hypertension
[2020-02-12] MEDS: ONDANSETRON INJ 2 MG/ML 2 ML VIAL IV PRN (18:17)
[2020-02-12] MEDS ORDERED: GLUCOSE 40% GEL 15 GM TUBE PO PRN (19:47)
[2020-02-12] MEDS ORDERED: CARBOHYDRATES FOR HYPOGLYCEMIA PO PRN (19:47)
[2020-02-12] MEDS ORDERED: GLUCOSE 10 TABS/TUBE PO PRN (19:47)
[2020-02-12] MEDS ORDERED: GLUCAGON FOR INJ 1 MG VIAL SQ PRN (19:47)
[2020-02-12] MEDS ORDERED: DEXTROSE 50% 50 ML SYRINGE IV PRN (19:47)
[2020-02-12] MEDS: lisinopril 10 MG TAB PO SCH (20:17)
[2020-02-12] MEDS: ASPIRIN 81 MG ECTAB PO SCH (20:17)
[2020-02-12] MEDS: ROSUVASTATIN CALCIUM 20 MG TAB PO SCH (20:17)
[2020-02-12] MEDS: OMEGA-3 (PURIFIED FISH OIL) 1 GM CAP PO SCH (20:17)
[2020-02-12] MEDS: CYANOCOBALAMIN 500 MCG TABLET (VITAMIN B-12) PO SCH (20:17)
[2020-02-12] MEDS: PARoxetine HCL 20 MG TAB PO SCH (20:17)
[2020-02-12] MEDS: ALPRAZolam 0.5 MG TABLET PO SCH (20:17)
[2020-02-12] MEDS: CALCIUM CARBONATE 500 MG CHEWABLE TAB PO PRN (20:34)
[2020-02-12] MEDS: INSULIN ASPART 100 UNITS/ML 3 ML PEN SC SCH (20:50)
[2020-02-13] MEDS ORDERED: lisinopril 10 MG TAB PO STA ×2 (04:10→21:29)
[2020-02-13 07:34] LABS: Basophils # (auto) 0.01 K/uL (0-0.2); Basophils % (auto) 0.1 %; Hematocrit (blood only) 40.5 % (37-47); Hemoglobin 13.2 g/dL (12.0-16.0); Immature Granulocytes # (auto) 0.05 K/uL (0.00-0.02); Immature Granulocytes % (auto) 0.6 %; Lymphocytes # (auto) 1.12 K/uL (1.2-3.4); Lymphocytes % (auto) 13.7 %; Mean Corpuscular Hgb Conc 32.6 g/dL (32-36); Mean Corpuscular Volume 98.1 fL (80-100); Mean Platelet Volume 10.5 fL (7.4-10.4); Monocytes # (auto) 0.76 K/uL (0.11-0.59); Monocytes % (auto) 9.3 %; Neutrophils # (auto) 6.25 K/uL (1.4-6.5); Neutrophils % (auto) 76.3 %; Platelet Count 351 K/uL (130-400); RDW Coefficient of Variation 14.6 % (11.5-14.5); RDW Standard Deviation 52.3 fL (36.4-46.3); Red Blood Count 4.13 M/uL (4.2-5.4); White Blood Count 8.19 K/uL (4.8-10.8)
[2020-02-13 08:00] LABS: BUN Creatinine Ratio 29.2 (10-20); Calcium 8.7 mg/dl (8.5-10.1); Creatinine Clr Calc Pharmacy 91.2 ml/min; Est GFR (African American) 99.9; Est GFR (Non-African American) 86.2
[2020-02-13 08:19] LABS: Estimated Average Glucose 128 mg/dl; Hemoglobin A1C 6.1 % (4.5-5.6)
[2020-02-13] MEDS: INSULIN ASPART 100 UNITS/ML 3 ML PEN SC SCH ×4 (08:37→21:23)
[2020-02-13] MEDS: DOXYCYCLINE HYCLATE 100 MG in DEXTROSE 5% 100 ML IV SCH ×2 (08:50→20:25)
[2020-02-13] MEDS: dexAMETHasone 6 MG in SYRINGE 0 ML IV SCH (08:51)
[2020-02-13] MEDS: PANTOprazole 40 MG TAB PO SCH (08:51)
[2020-02-13] MEDS: CALCIUM 600MG + VIT D 400 IU TAB PO SCH ×2 (08:51→20:10)
[2020-02-13] MEDS: ASCORBIC ACID 500 MG TAB PO SCH (08:51)
[2020-02-13] MEDS: UMECLIDINIUM BROMIDE 62.5MCG/BLISTER 7 PUFFS/INHALER INH SCH (08:52)
[2020-02-13] MEDS: FLUTICASONE/VILANTEROL 100/25MCG 14 PUFFS/INHALER INH SCH (08:52)
[2020-02-13] MEDS: ENOXAPARIN INJ 40 MG/0.4 ML SYR SQ SCH ×2 (08:52→20:09)
[2020-02-13] MEDS: cefTRIAXone SODIUM 2,000 MG in DEXTROSE 5% 50 ML IV SCH (11:24)
[2020-02-13] MEDS: REMDESIVIR 100 MG in SODIUM CHLORIDE 0.9% 230 ML IV SCH (17:54)
[2020-02-13] MEDS: SODIUM CHLORIDE 0.9% 10ML FLUSH IV SCH (18:32)
--- NOTE | 2020-02-13 19:16 | Hospitalist Progress Note ---
Date of Service February 13, 2020 Assessment & Plan (1) Pneumonia due to COVID-19 virus: (2) Hypoxia: COVID 19 POSITIVE Present on admission with worsening SOB associated with hypoxia, cough and fever CXR showed right basilar airspace consolidation. Correlate clinically for evidence of pneumonia/aspiration pneumonitis. CXR on admission showed airspace consolidation is seen at both lung bases. Inflammatory marker ESR trending down from 45, CRP from 7.04 to 3.09, ferritin wnl and procalcitonin normal Continue dexamethasone and Remdesevir to complete 5 days course Continue oxygen supplement and inhaler therapy Continue Rocephin and doxy for now for possible aspiration Pneumonia Advised pt to continue with proning Clinically improved (3) CAD (coronary artery disease): Continue aspirin and statin Stable (4) COPD (chronic obstructive pulmonary disease): Continue oxygen supplement and dexamethasone and inaler (5) Hypertension: BP stable Continue Lisinopril per home regimen. (6) Abnormal CT scan, stomach: There is mild wall thickening edema of the gastric antrum with surrounding infiltration. Mass cannot be excluded and a nonurgent endoscopic follow-up is recommended. Will need outpatient follow up Elevated BS Mostly due to IV steroid Hba1c 6.1 on 02/13/20 Continue novolog sliding scale Continue monitor BS (7) DVT prophylaxis: Continue Lovenox 40mg SQ q12h CODE STATUS Full Code Disposition Continue monitoring in COVID unit. Admission and Anticipated Discharge Date Admission Date: February 10, 2020 Subjective Pt was seen and examined Lying in bed with no distress Pt said that she feels a little better compared to yesterday She said that her cough improves Denies any chest pain, palpitation, dizziness and fever Physical Exam Physical Exam: General- No acute distress Head- atraumatic Eyes- PERRL, EOMI, ENT- oropharynx clear Neck- supple, no JVD Lungs- No wheezing and no crackles Heart- regular rhythm; no murmur Abdomen- normal bowel sounds, soft, nontender Extremities- no calf tenderness Neuro- alert, oriented x 3; PERRL, EOMI; no facial palsy; no dysarthria Skin- warm & dry Results & Data Results & Data ([facility]) Vital Signs (Past 12 Hours) Vital Signs Temp Pulse Pulse Resp BP BP Pulse Ox 02/13/20 15:43 36.5 C 67 22 176/78 H 91 02/13/20 11:11 37.1 C 59 L 19 176/96 H 92 02/13/20 08:00 61 02/13/20 07:27 37.1 C 60 18 176/75 H 93 (1) CAD (coronary artery disease) Associated angina: without angina Coronary Disease-Associated Artery/Lesion type: [place] artery [place] vs. transplanted heart: [place] heart Qualified Code(s): I25.10 - Atherosclerotic heart disease of [place] coronary artery without angina pectoris (2) COPD (chronic obstructive pulmonary disease) COPD type: COPD with acute exacerbation Qualified Code(s): J44.1 - Chronic obstructive pulmonary disease with (acute) exacerbation (3) Hypertension Hypertension type: essential hypertension Qualified Code(s): I10 - Essential (primary) hypertension
[2020-02-13] MEDS: ALPRAZolam 0.5 MG TABLET PO SCH (20:09)
[2020-02-13] MEDS: ASPIRIN 81 MG ECTAB PO SCH (20:09)
[2020-02-13] MEDS: lisinopril 10 MG TAB PO SCH (20:09)
[2020-02-13] MEDS: CALCIUM CARBONATE 500 MG CHEWABLE TAB PO PRN (20:09)
[2020-02-13] MEDS: ROSUVASTATIN CALCIUM 20 MG TAB PO SCH (20:09)
[2020-02-13] MEDS: PARoxetine HCL 20 MG TAB PO SCH (20:10)
[2020-02-13] MEDS: OMEGA-3 (PURIFIED FISH OIL) 1 GM CAP PO SCH (20:10)
[2020-02-13] MEDS: CYANOCOBALAMIN 500 MCG TABLET (VITAMIN B-12) PO SCH (20:10)
[2020-02-13 22:13] LABS: Partial Thromboplastin Ratio 1.1; Partial Thromboplastin Time 30.1 Seconds (21.0-31.0)
[2020-02-14] MEDS ORDERED: lisinopril 10 MG TAB PO STA (00:28)
[2020-02-14] MEDS: SUMAtriptan succinate 100 MG TAB PO PRN (05:31)
[2020-02-14 06:50] LABS: Basophils # (auto) 0.01 K/uL (0-0.2); Basophils % (auto) 0.1 %; Hematocrit (blood only) 41.8 % (37-47); Hemoglobin 13.6 g/dL (12.0-16.0); Immature Granulocytes # (auto) 0.15 K/uL (0.00-0.02); Immature Granulocytes % (auto) 1.9 %; Lymphocytes % (auto) 13.9 %; Mean Corpuscular Hemoglobin 31.9 pg (25-34); Mean Corpuscular Hgb Conc 32.5 g/dL (32-36); Mean Corpuscular Volume 97.9 fL (80-100); Mean Platelet Volume 10.5 fL (7.4-10.4); Monocytes # (auto) 0.96 K/uL (0.11-0.59); Monocytes % (auto) 12.1 %; Neutrophils # (auto) 5.72 K/uL (1.4-6.5); Platelet Count 339 K/uL (130-400); RDW Coefficient of Variation 14.7 % (11.5-14.5); RDW Standard Deviation 52.8 fL (36.4-46.3); Red Blood Count 4.27 M/uL (4.2-5.4); White Blood Count 7.94 K/uL (4.8-10.8)
[2020-02-14 07:27] LABS: BUN Creatinine Ratio 25.9 (10-20); Calcium 8.2 mg/dl (8.5-10.1); Creatinine Clr Calc Pharmacy 91.1 ml/min; Est GFR (African American) 99.9; Est GFR (Non-African American) 86.2
[2020-02-14] MEDS: FLUTICASONE/VILANTEROL 100/25MCG 14 PUFFS/INHALER INH SCH (08:47)
[2020-02-14] MEDS: INSULIN ASPART 100 UNITS/ML 3 ML PEN SC SCH ×4 (08:47→20:33)
[2020-02-14] MEDS: ASCORBIC ACID 500 MG TAB PO SCH (08:48)
[2020-02-14] MEDS: CALCIUM 600MG + VIT D 400 IU TAB PO SCH ×2 (08:48→19:46)
[2020-02-14] MEDS: ENOXAPARIN INJ 40 MG/0.4 ML SYR SQ SCH ×2 (08:48→19:45)
[2020-02-14] MEDS: PANTOprazole 40 MG TAB PO SCH (08:48)
[2020-02-14] MEDS: UMECLIDINIUM BROMIDE 62.5MCG/BLISTER 7 PUFFS/INHALER INH SCH (08:49)
[2020-02-14] MEDS: dexAMETHasone 6 MG in SYRINGE 0 ML IV SCH (08:52)
[2020-02-14] MEDS: DOXYCYCLINE HYCLATE 100 MG in DEXTROSE 5% 100 ML IV SCH ×2 (08:52→19:45)
[2020-02-14] MEDS: cefTRIAXone SODIUM 2,000 MG in DEXTROSE 5% 50 ML IV SCH (08:52)
--- NOTE | 2020-02-14 16:46 | Hospitalist Progress Note ---
Date of Service February 14, 2020 Assessment & Plan (1) Pneumonia due to COVID-19 virus: (2) Hypoxia: COVID 19 POSITIVE Present on admission with worsening SOB associated with hypoxia, cough and fever CXR showed right basilar airspace consolidation. Correlate clinically for evidence of pneumonia/aspiration pneumonitis. CXR on admission showed airspace consolidation is seen at both lung bases. Inflammatory marker ESR trending down from 45, CRP from 7.04 to 3.09, ferritin wnl and procalcitonin normal Continue dexamethasone will complete Remdesevir course today Continue oxygen supplement and inhaler therapy Continue Rocephin and doxy for now for possible aspiration Pneumonia Advised pt to continue with proning Clinically improved (3) CAD (coronary artery disease): Continue aspirin and statin Stable (4) COPD (chronic obstructive pulmonary disease): Continue oxygen supplement and dexamethasone and inaler (5) Hypertension: BP elevated possible related to steroid Lisinopril increased to 40mg will add hydralazine prn (6) Abnormal CT scan, stomach: There is mild wall thickening edema of the gastric antrum with surrounding infiltration. Mass cannot be excluded and a nonurgent endoscopic follow-up is recommended. Will need outpatient follow up Elevated BS Mostly due to IV steroid Hba1c 6.1 on 02/13/20 Continue novolog sliding scale Continue monitor BS (7) DVT prophylaxis: Continue Lovenox 40mg SQ q12h CODE STATUS Full Code Disposition Continue monitoring in COVID unit. Admission and Anticipated Discharge Date Admission Date: February 10, 2020 Subjective Pt was seen and examined Lying in bed with no distress Pt said that her breathing is much better spoke to case investigator and pt not interested to go to [facility] or [facility] denies any chest pain, palpitation, dizziness and fever Physical Exam Physical Exam: General- No acute distress Head- atraumatic Eyes- PERRL, EOMI, ENT- oropharynx clear Neck- supple, no JVD Lungs- No wheezing and no crackles Heart- regular rhythm; no murmur Abdomen- normal bowel sounds, soft, nontender Extremities- no calf tenderness Neuro- alert, oriented x 3; PERRL, EOMI; no facial palsy; no dysarthria Skin- warm & dry Results & Data Results & Data ([facility]) Vital Signs (Past 12 Hours) Vital Signs Temp Pulse Resp BP BP Pulse Ox 02/14/20 15:20 37.3 C 60 18 177/90 H 94 02/14/20 11:17 37.2 C 65 20 133/73 92 02/14/20 07:47 36.9 C 49 L 18 162/79 H 95 (1) CAD (coronary artery disease) Associated angina: without angina Coronary Disease-Associated Artery/Lesion type: [place] artery [place] vs. transplanted heart: [place] heart Qualified Code(s): I25.10 - Atherosclerotic heart disease of [place] coronary artery without angina pectoris (2) COPD (chronic obstructive pulmonary disease) COPD type: COPD with acute exacerbation Qualified Code(s): J44.1 - Chronic obstructive pulmonary disease with (acute) exacerbation (3) Hypertension Hypertension type: essential hypertension Qualified Code(s): I10 - Essential (primary) hypertension
[2020-02-14] MEDS: REMDESIVIR 100 MG in SODIUM CHLORIDE 0.9% 230 ML IV SCH (17:35)
[2020-02-14] MEDS: SODIUM CHLORIDE 0.9% 10ML FLUSH IV SCH (17:36)
[2020-02-14] MEDS: CALCIUM CARBONATE 500 MG CHEWABLE TAB PO PRN (19:44)
[2020-02-14] MEDS: PARoxetine HCL 20 MG TAB PO SCH (19:44)
[2020-02-14] MEDS: OMEGA-3 (PURIFIED FISH OIL) 1 GM CAP PO SCH (19:44)
[2020-02-14] MEDS: hydrALAZINE HCL 20 MG/ML VIAL IV PRN (19:45)
[2020-02-14] MEDS: CYANOCOBALAMIN 500 MCG TABLET (VITAMIN B-12) PO SCH (19:45)
[2020-02-14] MEDS: ROSUVASTATIN CALCIUM 20 MG TAB PO SCH (19:45)
[2020-02-14] MEDS: ASPIRIN 81 MG ECTAB PO SCH (19:45)
[2020-02-14] MEDS: lisinopril 40 MG TAB PO SCH (19:45)
[2020-02-14] MEDS: ALPRAZolam 0.5 MG TABLET PO SCH (19:45)
[2020-02-14] MEDS ORDERED: lisinopril 10 MG TAB PO SCH (20:00)
[2020-02-15] MEDS: SUMAtriptan succinate 100 MG TAB PO PRN ×2 (00:14→20:23)
[2020-02-15] MEDS: hydrALAZINE HCL 20 MG/ML VIAL IV PRN ×2 (03:36→20:38)
--- NOTE | 2020-02-15 06:23 | Electrocardiogram Report ---
Test Reason : Blood Pressure : / mmHG Vent. Rate : 059 BPM Atrial Rate : 059 BPM P-R Int : 154 ms QRS Dur : 094 ms QT Int : 388 ms P-R-T Axes : 049 003 077 degrees QTc Int : 384 ms Sinus bradycardia with marked sinus arrhythmia Otherwise normal ECG When compared with ECG of 10-FEB-2020 12:04, Premature atrial complexes are no longer Present Vent. rate has decreased BY 29 BPM Confirmed by Farhat Vazquez ([id number]) on 02/15/2020 6:22:56 AM Referred By: REFERRED SELF Confirmed By:Farhat Vazquez
[2020-02-15 07:17] LABS: Basophils # (auto) 0.02 K/uL (0-0.2); Basophils % (auto) 0.2 %; Hematocrit (blood only) 45.8 % (37-47); Hemoglobin 14.9 g/dL (12.0-16.0); Immature Granulocytes # (auto) 0.19 K/uL (0.00-0.02); Immature Granulocytes % (auto) 1.7 %; Lymphocytes # (auto) 1.55 K/uL (1.2-3.4); Lymphocytes % (auto) 14.2 %; Mean Corpuscular Hemoglobin 31.6 pg (25-34); Mean Corpuscular Hgb Conc 32.5 g/dL (32-36); Mean Corpuscular Volume 97.2 fL (80-100); Mean Platelet Volume 10.3 fL (7.4-10.4); Monocytes # (auto) 1.07 K/uL (0.11-0.59); Monocytes % (auto) 9.8 %; Neutrophils # (auto) 8.11 K/uL (1.4-6.5); Neutrophils % (auto) 74.1 %; Platelet Count 399 K/uL (130-400); RDW Coefficient of Variation 14.5 % (11.5-14.5); RDW Standard Deviation 51.8 fL (36.4-46.3); Red Blood Count 4.71 M/uL (4.2-5.4); White Blood Count 10.94 K/uL (4.8-10.8)
[2020-02-15 07:36] LABS: BUN Creatinine Ratio 25.2 (10-20); Calcium 9.2 mg/dl (8.5-10.1); Creatinine Clr Calc Pharmacy 95.3 ml/min; Est GFR (African American) 101.4; Est GFR (Non-African American) 87.5
[2020-02-15] MEDS: INSULIN ASPART 100 UNITS/ML 3 ML PEN SC SCH ×4 (08:30→20:43)
[2020-02-15] MEDS: ENOXAPARIN INJ 40 MG/0.4 ML SYR SQ SCH ×2 (08:35→20:26)
[2020-02-15] MEDS: ASCORBIC ACID 500 MG TAB PO SCH (08:35)
[2020-02-15] MEDS: dexAMETHasone 6 MG in SYRINGE 0 ML IV SCH (08:35)
[2020-02-15] MEDS: PANTOprazole 40 MG TAB PO SCH (08:35)
[2020-02-15] MEDS: CALCIUM 600MG + VIT D 400 IU TAB PO SCH ×2 (08:35→20:27)
[2020-02-15] MEDS: UMECLIDINIUM BROMIDE 62.5MCG/BLISTER 7 PUFFS/INHALER INH SCH (08:37)
[2020-02-15] MEDS: FLUTICASONE/VILANTEROL 100/25MCG 14 PUFFS/INHALER INH SCH (08:37)
[2020-02-15] MEDS: DOXYCYCLINE HYCLATE 100 MG in DEXTROSE 5% 100 ML IV SCH ×2 (08:39→20:29)
[2020-02-15] MEDS: cefTRIAXone SODIUM 2,000 MG in DEXTROSE 5% 50 ML IV SCH (08:40)
--- NOTE | 2020-02-15 18:35 | Hospitalist Progress Note ---
Date of Service February 15, 2020 Assessment & Plan (1) Pneumonia due to COVID-19 virus: (2) Hypoxia: COVID 19 POSITIVE Present on admission with worsening SOB associated with hypoxia, cough and fever CXR showed right basilar airspace consolidation. Correlate clinically for evidence of pneumonia/aspiration pneumonitis. CXR on admission showed airspace consolidation is seen at both lung bases. Inflammatory marker ESR trending down from 45, CRP from 7.04 to 3.09, ferritin wnl and procalcitonin normal Continue dexamethasone Completed 5 days course of Remdesevir Continue oxygen supplement and inhaler therapy Continue Rocephin and doxy for now for possible aspiration Pneumonia Advised pt to continue with proning Clinically improved significantly (3) CAD (coronary artery disease): Continue aspirin and statin Stable (4) COPD (chronic obstructive pulmonary disease): Continue oxygen supplement and dexamethasone and inaler (5) Hypertension: BP elevated possible related to steroid Lisinopril increased to 40mg will add hydralazine prn (6) Abnormal CT scan, stomach: There is mild wall thickening edema of the gastric antrum with surrounding infiltration. Mass cannot be excluded and a nonurgent endoscopic follow-up is recommended. Will need outpatient follow up Elevated BS Mostly due to IV steroid Hba1c 6.1 on 02/13/20 Continue novolog sliding scale Continue monitor BS S/P Right knee arthroscopy with partial medial meniscectomy performed by Dr. Arauz on 01/20 Continue PT/OT Fall precaution Might consider rehab (7) DVT prophylaxis: Continue Lovenox 40mg SQ q12h CODE STATUS Full Code Disposition Continue monitoring in COVID unit. Admission and Anticipated Discharge Date Admission Date: February 10, 2020 Subjective Pt was seen and examined Sitting in bed with no distress eating lunch Her breathing improves significantly She is not coughing anymore She does not feel that she can take care herself if she goes home She is thinking about to go to rehab Denies any chest pain, palpitation, dizziness and fever Physical Exam Physical Exam: General- No acute distress Head- atraumatic Eyes- PERRL, EOMI, ENT- oropharynx clear Neck- supple, no JVD Lungs- No wheezing and no crackles Heart- regular rhythm; no murmur Abdomen- normal bowel sounds, soft, nontender Extremities- no calf tenderness Neuro- alert, oriented x 3; PERRL, EOMI; no facial palsy; no dysarthria Skin- warm & dry Results & Data Results & Data ([facility]) Vital Signs (Past 12 Hours) Vital Signs Temp Pulse Resp BP Pulse Ox 02/15/20 16:40 37 C 76 17 152/84 H 89 L 02/15/20 07:57 37.3 C 75 151/79 H 93 (1) CAD (coronary artery disease) Associated angina: without angina Coronary Disease-Associated Artery/Lesion type: [place] artery [place] vs. transplanted heart: [place] heart Qualified Code(s): I25.10 - Atherosclerotic heart disease of [place] coronary artery without angina pectoris (2) COPD (chronic obstructive pulmonary disease) COPD type: COPD with acute exacerbation Qualified Code(s): J44.1 - Chronic obstructive pulmonary disease with (acute) exacerbation (3) Hypertension Hypertension type: essential hypertension Qualified Code(s): I10 - Essential (primary) hypertension
[2020-02-15] MEDS: ONDANSETRON INJ 2 MG/ML 2 ML VIAL IV PRN (18:54)
[2020-02-15] MEDS: ASPIRIN 81 MG ECTAB PO SCH (20:24)
[2020-02-15] MEDS: CYANOCOBALAMIN 500 MCG TABLET (VITAMIN B-12) PO SCH (20:25)
[2020-02-15] MEDS: OMEGA-3 (PURIFIED FISH OIL) 1 GM CAP PO SCH (20:25)
[2020-02-15] MEDS: lisinopril 40 MG TAB PO SCH (20:25)
[2020-02-15] MEDS: PARoxetine HCL 20 MG TAB PO SCH (20:25)
[2020-02-15] MEDS: ROSUVASTATIN CALCIUM 20 MG TAB PO SCH (20:26)
[2020-02-15] MEDS: ALPRAZolam 0.5 MG TABLET PO SCH (20:29)
[2020-02-15] MEDS: CALCIUM CARBONATE 500 MG CHEWABLE TAB PO PRN (22:00)
[2020-02-16 08:00] LABS: Est GFR (African American) 101.9; Est GFR (Non-African American) 87.9
[2020-02-16] MEDS: INSULIN ASPART 100 UNITS/ML 3 ML PEN SC SCH ×4 (08:20→20:57)
[2020-02-16] MEDS: cefTRIAXone SODIUM 2,000 MG in DEXTROSE 5% 50 ML IV SCH (09:23)
[2020-02-16] MEDS: DOXYCYCLINE HYCLATE 100 MG in DEXTROSE 5% 100 ML IV SCH ×2 (09:23→19:51)
[2020-02-16] MEDS: UMECLIDINIUM BROMIDE 62.5MCG/BLISTER 7 PUFFS/INHALER INH SCH (09:24)
[2020-02-16] MEDS: dexAMETHasone 6 MG in SYRINGE 0 ML IV SCH (09:24)
[2020-02-16] MEDS: ENOXAPARIN INJ 40 MG/0.4 ML SYR SQ SCH ×2 (09:24→19:46)
[2020-02-16] MEDS: ASCORBIC ACID 500 MG TAB PO SCH (09:24)
[2020-02-16] MEDS: PANTOprazole 40 MG TAB PO SCH (09:24)
[2020-02-16] MEDS: FLUTICASONE/VILANTEROL 100/25MCG 14 PUFFS/INHALER INH SCH (09:24)
[2020-02-16] MEDS: CALCIUM 600MG + VIT D 400 IU TAB PO SCH ×2 (09:25→19:47)
[2020-02-16] MEDS: NICOTINE 21 MG/24 HR TDSY TD SCH (11:30)
--- NOTE | 2020-02-16 17:44 | Hospitalist Progress Note ---
Date of Service February 16, 2020 Assessment & Plan (1) Pneumonia due to COVID-19 virus: (2) Hypoxia: COVID 19 POSITIVE Present on admission with worsening SOB associated with hypoxia, cough and fever CXR showed right basilar airspace consolidation. Correlate clinically for evidence of pneumonia/aspiration pneumonitis. CXR on admission showed airspace consolidation is seen at both lung bases. Inflammatory marker ESR trending down from 45, CRP from 7.04 to 3.09, ferritin wnl and procalcitonin normal Continue dexamethasone Completed 5 days course of Remdesevir Continue oxygen supplement and inhaler therapy Continue Rocephin and doxy for now for possible aspiration Pneumonia Advised pt to continue with proning 2 step exercise order, but pt refused to do it Clinically improved significantly (3) CAD (coronary artery disease): Continue aspirin and statin Stable (4) COPD (chronic obstructive pulmonary disease): Continue oxygen supplement and dexamethasone and inaler (5) Hypertension: BP elevated possible related to steroid Lisinopril increased to 40mg will add hydralazine prn (6) Abnormal CT scan, stomach: There is mild wall thickening edema of the gastric antrum with surrounding infiltration. Mass cannot be excluded and a nonurgent endoscopic follow-up is recommended. Will need outpatient follow up Elevated BS Mostly due to IV steroid Hba1c 6.1 on 02/13/20 Continue novolog sliding scale Continue monitor BS S/P Right knee arthroscopy with partial medial meniscectomy performed by Dr. Arauz on 01/20 Continue PT/OT Fall precaution Consider inpatient rehab (7) DVT prophylaxis: Continue Lovenox 40mg SQ q12h CODE STATUS Full Code Disposition Continue monitoring in COVID unit. Admission and Anticipated Discharge Date Admission Date: February 10, 2020 Subjective Pt was seen and examined Sitting in bed with no distress Pt said that she feels much better She is very anxious to go home because she has no help I spoke to his son over the phone that lives in [place] Pt refused to get 2 step done and did not participate any therapy today Denies any chest pain, palpitation, dizziness and SOB Physical Exam Physical Exam: General- No acute distress Head- atraumatic Eyes- PERRL, EOMI, ENT- oropharynx clear Neck- supple, no JVD Lungs- No wheezing and no crackles Heart- regular rhythm; no murmur Abdomen- normal bowel sounds, soft, nontender Extremities- no calf tenderness Neuro- alert, oriented x 3; PERRL, EOMI; no facial palsy; no dysarthria Skin- warm & dry Results & Data Results & Data ([facility]) Vital Signs (Past 12 Hours) Vital Signs Temp Pulse Pulse Resp BP BP Pulse Ox 02/16/20 15:27 37.0 C 74 18 130/62 91 02/16/20 08:00 73 02/16/20 07:59 36.9 C 74 18 159/69 H 94 (1) CAD (coronary artery disease) Associated angina: without angina Coronary Disease-Associated Artery/Lesion type: [place] artery [place] vs. transplanted heart: [place] heart Qualified Code(s): I25.10 - Atherosclerotic heart disease of [place] coronary artery without angina pectoris (2) COPD (chronic obstructive pulmonary disease) COPD type: COPD with acute exacerbation Qualified Code(s): J44.1 - Chronic obstructive pulmonary disease with (acute) exacerbation (3) Hypertension Hypertension type: essential hypertension Qualified Code(s): I10 - Essential (primary) hypertension
[2020-02-16] MEDS: ROSUVASTATIN CALCIUM 20 MG TAB PO SCH (19:44)
[2020-02-16] MEDS: lisinopril 40 MG TAB PO SCH (19:45)
[2020-02-16] MEDS: ASPIRIN 81 MG ECTAB PO SCH (19:45)
[2020-02-16] MEDS: CYANOCOBALAMIN 500 MCG TABLET (VITAMIN B-12) PO SCH (19:45)
[2020-02-16] MEDS: OMEGA-3 (PURIFIED FISH OIL) 1 GM CAP PO SCH (19:45)
[2020-02-16] MEDS: PARoxetine HCL 20 MG TAB PO SCH (19:45)
[2020-02-16] MEDS: ALPRAZolam 0.5 MG TABLET PO SCH (19:51)
[2020-02-17] MEDS: DOXYCYCLINE HYCLATE 100 MG in DEXTROSE 5% 100 ML IV SCH (07:23)
[2020-02-17] MEDS: NICOTINE 21 MG/24 HR TDSY TD SCH (07:23)
[2020-02-17] MEDS: dexAMETHasone 6 MG in SYRINGE 0 ML IV SCH (07:23)
[2020-02-17] MEDS: UMECLIDINIUM BROMIDE 62.5MCG/BLISTER 7 PUFFS/INHALER INH SCH (07:24)
[2020-02-17] MEDS: FLUTICASONE/VILANTEROL 100/25MCG 14 PUFFS/INHALER INH SCH (07:24)
[2020-02-17] MEDS: ENOXAPARIN INJ 40 MG/0.4 ML SYR SQ SCH ×2 (07:25→20:42)
[2020-02-17] MEDS: CALCIUM 600MG + VIT D 400 IU TAB PO SCH ×2 (07:25→20:40)
[2020-02-17] MEDS: ASCORBIC ACID 500 MG TAB PO SCH (07:26)
[2020-02-17] MEDS: PANTOprazole 40 MG TAB PO SCH (07:27)
[2020-02-17] MEDS: INSULIN ASPART 100 UNITS/ML 3 ML PEN SC SCH ×4 (08:26→20:52)
[2020-02-17] MEDS: cefTRIAXone SODIUM 2,000 MG in DEXTROSE 5% 50 ML IV SCH (09:37)
--- NOTE | 2020-02-17 19:09 | Hospitalist Progress Note ---
Date of Service February 17, 2020 Assessment & Plan (1) Pneumonia due to COVID-19 virus: (2) Hypoxia: COVID 19 POSITIVE Present on admission with worsening SOB associated with hypoxia, cough and fever CXR showed right basilar airspace consolidation. Correlate clinically for evidence of pneumonia/aspiration pneumonitis. CXR on admission showed airspace consolidation is seen at both lung bases. Inflammatory marker ESR trending down from 45, CRP from 7.04 to 3.09, ferritin wnl and procalcitonin normal Continue dexamethasone Completed 5 days course of Remdesevir Continue oxygen supplement and inhaler therapy Continue Rocephin and doxy for now for possible aspiration Pneumonia Advised pt to continue with proning 2 step exercise order, but pt refused to do it Clinically improved significantly (3) CAD (coronary artery disease): Continue aspirin and statin Stable (4) COPD (chronic obstructive pulmonary disease): Continue oxygen supplement and dexamethasone and inaler (5) Hypertension: BP elevated possible related to steroid Lisinopril increased to 40mg On hydralazine prn (6) Abnormal CT scan, stomach: There is mild wall thickening edema of the gastric antrum with surrounding infiltration. Mass cannot be excluded and a nonurgent endoscopic follow-up is recommended. Will need outpatient follow up Elevated BS Mostly due to IV steroid Hba1c 6.1 on 02/13/20 Continue novolog sliding scale Continue monitor BS S/P Right knee arthroscopy with partial medial meniscectomy performed by Dr. Arauz on 01/20 Continue PT/OT Fall precaution Consider inpatient rehab (7) DVT prophylaxis: Continue Lovenox 40mg SQ q12h CODE STATUS Full Code Disposition Continue monitoring in COVID unit. waiting for placement to rehab Admission and Anticipated Discharge Date Admission Date: February 10, 2020 Subjective Pt was seen and examined Lying in bed with no distress Pt said that she feels much better today She does not want to go to E, but agreed to go to [facility] if she can get a private room She said that she walked with therapy today Denies any chest pain, palpitation, dizziness and SOB Physical Exam Physical Exam: General- No acute distress Head- atraumatic Eyes- PERRL, EOMI, ENT- oropharynx clear Neck- supple, no JVD Lungs- No wheezing and no crackles Heart- regular rhythm; no murmur Abdomen- normal bowel sounds, soft, nontender Extremities- no calf tenderness Neuro- alert, oriented x 3; PERRL, EOMI; no facial palsy; no dysarthria Skin- warm & dry Results & Data Results & Data ([facility]) Vital Signs (Past 12 Hours) Vital Signs Temp Pulse Pulse Resp BP BP Pulse Ox 02/17/20 15:50 37.1 C 64 18 160/79 H 94 02/17/20 11:31 36.9 C 70 19 133/63 93 02/17/20 11:15 02/17/20 07:50 36.7 C 72 21 140/81 92 02/17/20 07:12 68 Pulse Ox Pulse Ox 02/17/20 15:50 02/17/20 11:31 02/17/20 11:15 94 90 02/17/20 07:50 02/17/20 07:12 (1) CAD (coronary artery disease) Coronary Disease-Associated Artery/Lesion type: [place] artery [place] vs. transplanted heart: [place] heart Associated angina: without angina Qualified Code(s): I25.10 - Atherosclerotic heart disease of [place] coronary artery without angina pectoris (2) COPD (chronic obstructive pulmonary disease) COPD type: COPD with acute exacerbation Qualified Code(s): J44.1 - Chronic obstructive pulmonary disease with (acute) exacerbation (3) Hypertension Hypertension type: essential hypertension Qualified Code(s): I10 - Essential (primary) hypertension
[2020-02-17] MEDS: ROSUVASTATIN CALCIUM 20 MG TAB PO SCH (20:41)
[2020-02-17] MEDS: ASPIRIN 81 MG ECTAB PO SCH (20:41)
[2020-02-17] MEDS: OMEGA-3 (PURIFIED FISH OIL) 1 GM CAP PO SCH (20:44)
[2020-02-17] MEDS: CYANOCOBALAMIN 500 MCG TABLET (VITAMIN B-12) PO SCH (20:44)
[2020-02-17] MEDS: lisinopril 40 MG TAB PO SCH (20:44)
[2020-02-17] MEDS: PARoxetine HCL 20 MG TAB PO SCH (20:45)
[2020-02-17] MEDS: ALPRAZolam 0.5 MG TABLET PO SCH (20:53)
[2020-02-18] MEDS: UMECLIDINIUM BROMIDE 62.5MCG/BLISTER 7 PUFFS/INHALER INH SCH (08:24)
[2020-02-18] MEDS: CALCIUM 600MG + VIT D 400 IU TAB PO SCH (08:24)
[2020-02-18] MEDS: FLUTICASONE/VILANTEROL 100/25MCG 14 PUFFS/INHALER INH SCH (08:24)
[2020-02-18] MEDS: PANTOprazole 40 MG TAB PO SCH (08:25)
[2020-02-18] MEDS: ASCORBIC ACID 500 MG TAB PO SCH (08:25)
[2020-02-18] MEDS: ENOXAPARIN INJ 40 MG/0.4 ML SYR SQ SCH (08:26)
[2020-02-18] MEDS: NICOTINE 21 MG/24 HR TDSY TD SCH (08:27)
[2020-02-18] MEDS: INSULIN ASPART 100 UNITS/ML 3 ML PEN SC SCH ×2 (08:28→12:48)
[2020-02-18] MEDS: cefTRIAXone SODIUM 2,000 MG in DEXTROSE 5% 50 ML IV SCH (08:42)
[2020-02-18] MEDS ORDERED: predniSONE 20 MG TAB PO SCH (09:00)
--- NOTE | 2020-02-18 18:04 | Discharge Summary ---
Date of Service February 18, 2020 Admission HPI Per Admitting Provider This is a 74 y/o female with a PMH of CAD with hx of NSTEMI, COPD, HTN, dyslipidemia, atrial flutter, anxiety, depression, and prediabetes who presented to the ED today via EMS. Of note, pt underwent right knee arthroscopy on 01/21/20 and was discharged home. However, she apparently fell multiple times at home and was subsequently evaluated in the ED on 01/22/20. From there, she was sent to rehab and subsequently discharged home. Pt was again seen in the ED on 02/03/20 due to recurrent falls and lumbar contusion. Work-up was negative for fracture so pt was discharged to home. Her Epic chart was extensively reviewed. She called into her PCP office this morning due to complaints of progressive weakness, abdominal pain, vomiting and diarrhea for the past few weeks. They offered her an office visit but she reported being too ill to come to the office so EMS was ultimately called and patient was brought to the ED. In the ED, she was noted to be febrile and hypoxic. Pt was unaware of any known contact with someone who has COVID-19 but testing in the ED was positive. Principal Diagnosis RESPIRATORY FAILURE COVID 19 S/P Right knee arthroscopy with partial medial meniscectomy performed by Dr. Arauz on 01/20 Discharge Exam Constitutional WD/WN, vitals as above + ill appearing Eyes + anicteric sclerae ENMT external ear and nose normal, oropharynx normal Neck trachea midline, no thyromegaly Respiratory no respiratory distress Auscultation: + diminished lung sounds, + crackles, + wheezes and + pleural rub present Cardiovascular Rate/Rhythm: regular rate and regular rhythm Extremities: no edema Gastrointestinal (Abdomen) Percussion/Palpation: abdomen soft; abdomen nontender Skin no rashes, warm and dry Neurologic PERRL, EOMI, accommodation nl, no face palsy, no dysarthria no focal motor deficits Psychiatric A+Ox3, euthymic affect Discharge Data Allergies Allergy/AdvReac Type Severity Reaction Status Date / Time No Known Allergies Allergy Verified 02/03/20 16:53 Consultations 02/10/20 13:49 ED Decision to Admit Stat 02/10/20 20:50 Consult Infectious Diseases Routine Ordered Studies 02/10/20 12:08 CT abd pelvis IV con only Stat Hospital Course (1) Pneumonia due to COVID-19 virus: respiratory status improve, no cough /denies of any SOB requiring 2 L 02 , was on 2-3L o2 at night before admission was on IV dexamethasone, changed to PO prednsione 40 mg daily to complete total 10 days tx completed IV remdesivir. completed abx tx for underlying community acquired pneumonia (2) Hypoxia: due to COVID 19 pneumonia Present on admission with worsening SOB associated with hypoxia, cough and fever CXR showed right basilar airspace consolidation. Correlate clinically for evidence of pneumonia/aspiration pneumonitis. CXR on admission showed airspace consolidation is seen at both lung bases. Inflammatory marker ESR trending down from 45, CRP from 7.04 to 3.09, ferritin wnl and procalcitonin normal Continue steroid to complete 10 days tx Completed 5 days course of Remdesevir Continue oxygen supplement and inhaler therapy Continue Rocephin and doxy for now for possible aspiration Pneumonia Advised pt to continue with proning 2 step exercise order, but pt refused to do it Clinically improved significantly stable to be discharged to rehab (3) CAD (coronary artery disease): Continue aspirin and statin Stable (4) COPD (chronic obstructive pulmonary disease): no wheeze on steroid for COVID 19 pneumonia (5) Hypertension: BP improved after adjusting meds Lisinopril increased to 40mg (6) Abnormal CT scan, stomach: There is mild wall thickening edema of the gastric antrum with surrounding infiltration. Mass cannot be excluded and a nonurgent endoscopic follow-up is recommended. Will need outpatient GI follow up Elevated BS Mostly due to IV steroid Hba1c 6.1 on 02/13/20 Continue novolog sliding scale Continue monitor BS S/P Right knee arthroscopy with partial medial meniscectomy performed by Dr. Arauz on 01/20 Continue PT/OT Fall precaution pt is discharged to SNF will be discharged on PO Eliquis 2.5 mg BID for DVT prophylaxis ( high risk given recent Rt knee surgery and COVID 19 infection ) (7) DVT prophylaxis: was treated with Lovenox 40mg SQ q12h while in patient will be discharged with PO Eliquis for 4 weeks CODE STATUS Full Code Disposition discharged to SNF today Total Time Total Time Spent Total Time Spent (In Minutes): approx 30 mins Total Time Includes: Discharge Planning and Medication Reconciliation Discharge Plan Discharge Items Patient Disposition: Transfer [facility] Reason For Visit: COVID-19, HYPOXIA Discharge Diagnosis: RESPIRATORY FAILURE COVID 19 S/P Right knee arthroscopy with partial medial meniscectomy performed by Dr. Arauz on 01/20 Activity: As commented below Activity Comment: CONTINUE PHYSICAL THERAPY /OCCUPATIONAL THERAPY Non-emergency contact: Primary Care Provider Call non-emergency contact if: you have any medication questions Follow-up/Referrals: Merlin Barrios MD [Primary Care Provider] - (Date & Time 02/20/2020 12:20 PM Provider Merlin Barrios MD [facility] PLEASE NOTE: THIS IS A TELEPHONE APPOINTMENT. YOUR PHYSICIAN WILL CALL YOU ON THE TELEPHONE AT THE APPOINTMENT TIME. IF YOU HAVE ANY QUESTIONS, PLEASE CALL ) Diet: Carb Count or DM1 and Heart Healthy Addtl Attending Provider Instructions: YOU WILL NEED TO ASSESS FOR HOME OXYGEN NEEDS BEFORE DISCHARGED TO HOME FROM REHAB FOLLOW UP WITH GI IN CLINIC IN 406 WEEKS FOR CONSIDERATION OF EGD Pending Studies at Discharge: No Stand-Alone Forms: My [facility] Skilled Items Patient informed of condition?: Yes DNR: No Discharge Level of Care: Skilled Communicable Disease: Yes Discharge Prognosis: Stable Lines: None Urinary Catheter: No Medications and DC Order Prescriptions: New prednisone 20 mg Tablet 40 mg PO DAILY 2 Days Qty: 4 RF: 0 pantoprazole 40 mg Tablet,Delayed Release (Dr/Ec) 40 mg PO QAM 30 Days Qty: 30 RF: 0 lisinopril [Zestril] 40 mg Tablet 40 mg PO QPM@2000 Qty: 0 RF: 0 Eliquis 2.5 mg tablet 2.5 mg PO Q12H Qty: 30 RF: 0 Continued fluticasone propion-salmeterol [Advair Diskus] 100-50 mcg/dose blister with device 1 inh INHALATION BID RF: 0 Incruse Ellipta 62.5 mcg/actuation blister with device 1 inh INHALATION DAILY RF: 0 alprazolam 1 mg Tablet 1 mg PO HS Qty: 10 RF: 0 oxycodone-acetaminophen [Percocet] 5-325 mg tablet 1 tab PO Q4H PRN (Reason: pain) Qty: 20 RF: 0 ascorbic acid (vitamin C) [Vitamin C] 1,000 mg Tablet 500 mg PO DAILY RF: 0 paroxetine HCl 30 mg tablet 60 mg PO HS RF: 0 omega 5-izi-ynt-fish oil [Fish Oil] 1,000 mg (120 mg-180 mg) Capsule 1 cap PO HS RF: 0 aspirin 81 mg Tablet,Delayed Release (Dr/Ec) 81 mg PO HS RF: 0 Caltrate 600 plus D 600 mg (1,500 mg)-800 unit Tablet,Chewable 1 tab PO BID RF: 0 sumatriptan succinate 100 mg Tablet 100 mg PO UD PRN (Reason: Migraine Headache) RF: 0 cyanocobalamin (vitamin B-12) 1,000 mcg Tablet 1,000 mcg PO HS RF: 0 nitroglycerin 0.4 mg Tablet, Sublingual 0.4 mg sublingual USEASDIRECTD PRN (Reason: Chest Pain) RF: 0 albuterol sulfate 90 mcg/actuation Hfa Aerosol Inhaler 2 puff INHALATION Q6H PRN (Reason: SHORT OF BREATH) RF: 0 rosuvastatin 40 mg tablet 40 mg PO HS RF: 0 tizanidine 4 mg Tablet 4 mg PO TID PRN (Reason: MUSCLE SPASMS) RF: 0 ibuprofen 200 mg Tablet 400 mg PO Q6H PRN (Reason: Pain) RF: 0 Discontinued lisinopril 10 mg tablet 10 mg PO QPM RF: 0 Discharge Orders: Discharge Order (Routine); Ordered 02/18/20 Ordered By: Renee Grove/Other Patient Handouts: Prediabetes, A1C, Disinfecting Your Home of COVID-19, How COVID-19 Spreads, Symptoms of COVID-19 Infection Admission Data Admit Date/Time: 02/10/20 14:40 Attending Provider: Renee Mares Admit Provider: Renee Mares Primary Care Provider: Merlin Barrios Other Providers: Renee Mares ; Epifanio Diaz ; Ty Amin ; Tal Galloway I. ; Relily Reveles II ; Nyasia Plunkett ; Merlin Aly ; [facility] ; [facility] [place] ; [facility], ; Dianna Garber Other Interventions: Discharge Summary Assessment (RN) Last Done: 02/18/20 15:09
== END 2020-02-18 17:53 | DRG 177 ==
LOC: ED 11:53 → 2E 14:40 → SUATTDRO 14:40 → 2E 15:15

== ENCOUNTER 2021-11-09 20:10 | Inpatient (IN) ==
--- NOTE | 2021-11-09 20:19 | Emergency Department Note ---
Impression & Plan Acute exacerbation of chronic obstructive pulmonary disease (COPD), Tobacco abuse, Acute electrocardiogram changes ED Provider Note NAME: PACO JOHNSON AGE: 75 SEX: F : 1945 ARRIVES VIA: Walk-In INFORMANT: Patient, ED PROVIDER(S): Seamus Flaherty MD Chief Complaint: Shortness of breath HPI: Patient presents due to concern for shortness of breath. The patient does have a known history of COPD and is a smoker. The patient has had symptoms for approximately 1 week in duration with an increase in sputum production. Patient does wear oxygen as needed as well as at nighttime and has been using it more frequently and has been using her inhalers more frequently but without improvement in symptoms. No prior history of DVT or PE. The patient denies any chest pains. Patient does relate that her symptoms of gotten increasingly worse. Does complain of worsening symptoms with exertion. Patient denies any leg swelling or calf pain. Patient denies any recent surgeries procedures or hospitalizations. ROS: See HPI for pertinent positives and negatives. A total of 10 systems were reviewed and otherwise negative. Past medical history: See below Surgical history: See below Social history: See below Physical Exam: GENERAL: NAD, non-toxic. Wearing glasses EYE EXAM: Normal conjunctiva. PERRL, no anisocoria and EOM's grossly intact w/o pain. NECK: Supple, no nuchal rigidity, no adenopathy, non-tender. No signs of meningismus. FROM of the neck with good chin to chest and neck extension. No stridor. LUNGS: Occasional crackles with wheezing in the bilateral lower lungs but more prominent on the right side. Normal chest wall mechanics. HEART: NSR, no MRG. ABDOMEN: Abdomen soft, non-tender, normo-active bowel sounds, no masses, no rebound or guarding. BACK: No CVA TTP. SKIN: No rashes and no bruising. UPPER EXTREMITIES: Upper extremities are grossly normal. LOWER EXTREMITIES: Grossly normal, no edema. Negative Homans' sign bilaterally. NEURO EXAM: A&O x3, cranial nerves II-XII grossly intact, normal speech, moves all 4 extremities. Differential diagnoses: Reactive airway disease, pneumonia, pneumothorax, COPD, CHF, infections, cardiac ischemia, pulmonary embolism, musculoskeletal, gastrointestinal, as well as other pathologies. Course: Patient was seen and evaluated the bedside. Full history physical exam was performed. EKG interpreted by me Sinus rhythm, rate of 71, normal intervals, normal axis, T wave version in V2, lateral, and high lateral leads. T wave versions in the high lateral are old while T wave version in the lateral leads are new from comparison completed February 13, 2021. Repeat EKG interpreted by me Sinus rhythm, rate of 78, normal intervals, left axis deviation, T wave version in V2 as well as in the lateral and high lateral leads. This appears grossly unchanged from comparison completed earlier. Imaging Studies: Chest x-ray as interpreted by me Bibasilar densities which may be consistent with atelectasis versus pneumonia Cardiac monitoring: An order was placed for continuous cardiac monitoring. The monitor shows a rate of 75 with sinus rhythm. MDM: Patient presented due to concern for shortness of breath. Blood work is obtain ed along with an EKG troponin and chest x-ray. The patient did have duo nebs given in addition to Solu-Medrol and magnesium. Patient has a normal white count and hemoglobin with a normal platelet count. Kidney function is unremarkable. Troponin is not elevated. Patient's EKG does show some nons pecific changes in lateral leads. No STEMI. COVID-negative. Patient's chest x- ray by read my read does show bibasilar densities which may be atelectatic but in light of the patient's COPD history and increasing sputum production may be a pneumonia. Patient does not describe purulent sputum but the patient was treated with Rocephin and azithromycin as a precaution. I did reevaluate the patient who stated that she felt better after treatments. I did speak the on- call hospitalist Dr. Jeffery and the patient was admitted to the medicine service. Patient did have some left-sided chest pain when I was speaking the patient. This was brief. Patient did have a repeat EKG completed would which did not show any acute obvious changes at this time. Patient was admitted by Dr. Jeffery. Past Med/Surg History Medical History Anxiety and depression Atrial flutter s/p ablation 05/2017. Follows with [facility] cardio. CAD (coronary artery disease) Nonobstructive by 2018 cardiac cath. NSTEMI ruled 2/2 coronary spasm. COPD (chronic obstructive pulmonary disease) 2.5 LPM VIA N/C ONLY AT HS. Advair daily, rarely using rescue inhaler, ~ 3x per month Continues to smoke 1ppd Degenerative disc disease Hyperlipidemia Hypertension Myocardial Infarction NSTEMI 04/2018 [facility] On home oxygen therapy 2.5L AT HS Osteoarthritis Sleep apnea "MILD" ONLY WEARS O2 AT 2.5L AT HS Tobacco abuse Surgical History History of breast biopsy History of cardiac cath 04/2018 for NSTEMI, Nonobstructive moderate proximal to mid LAD disease. History of cardiac radiofrequency ablation 2018 History of section X 2 History of colonoscopy History of dilatation and curettage History of discectomy LUMBAR History of eye surgery RT EYE (CAN'T REMEMBER WHAT FOR) History of laparoscopy / endometriosis History of open reduction and internal fixation (ORIF) procedure RT ANKLE History of tooth extraction Family History Father Hypertension Brother Diabetes Depression Family history of diabetes mellitus Sister Depression Family history of diabetes mellitus Social History Smoking Status: Current every day smoker Tobacco Type: Cigars Cigarettes Per Day: 20 DAILY; Second Hand Exposure: No; Hx Alcohol Use: No Hx Substance Use: No Preferred Language: Turkish Communication Ability: Effective Visual Impairment: No Limitations Hearing Ability: Normal 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 Beliefs That Will Affect Care: None marital status: Current Living Situation: Alone How many Children do You have: 2 Feels Safe at Home: Declines to Answer Assistive Devices: Cane Allergies Allergies Allergy/AdvReac Type Severity Reaction Status Date / Time No Known Allergies Allergy Verified 12/07/20 15:42 Home Meds Home Medications Medication Instructions Recorded Confirmed ascorbic acid (vitamin C) 1,000 mg 500 mg PO DAILY 05/10/18 12/07/20 tablet (Vitamin C) aspirin 81 mg tablet,delayed 81 mg PO HS 05/10/18 12/07/20 release calcium carbonate 600 mg-vitamin 1 tab PO BID 05/10/18 12/07/20 D3 20 mcg (800 unit) chewable tablet (Caltrate 600 plus D) omega 3-wrt-mmi-fish oil 1,000 mg 1 cap PO HS 05/10/18 12/07/20 (120 mg-180 mg) capsule (Fish Oil) paroxetine HCl 30 mg tablet 60 mg PO HS 05/10/18 12/07/20 albuterol sulfate 90 mcg/actuation 2 puff inhalation Q6H PRN SHORT OF 01/14/19 12/07/20 aerosol inhaler BREATH cyanocobalamin (vitamin B-12) 1,000 mcg PO HS 01/14/19 12/07/20 1,000 mcg tablet nitroglycerin 0.4 mg sublingual 0.4 mg sublingual USEASDIRECTD PRN 01/14/19 12/07/20 tablet Chest Pain sumatriptan succinate 100 mg tablet 100 mg PO UD PRN Migraine Headache 01/14/19 12/07/20 rosuvastatin 40 mg tablet 40 mg PO HS 10/10/19 12/07/20 tizanidine 4 mg tablet 4 mg PO TID PRN MUSCLE SPASMS 12/26/19 12/07/20 ibuprofen 200 mg tablet 400 mg PO Q6H PRN Pain 02/03/20 12/07/20 fluticasone 100 mcg-salmeterol 50 1 inh inhalation BID 02/10/20 12/07/20 mcg/dose blistr powdr for inhalation (Advair Diskus) umeclidinium 62.5 mcg/actuation 1 inh inhalation DAILY 02/10/20 12/07/20 blister powder for inhalation (Incruse Ellipta) lisinopril 10 mg tablet 10 mg PO DAILY 12/07/20 12/07/20 Previous Rx's Medication Instructions Recorded alprazolam 1 mg tablet 1 mg PO HS #10 tabs 02/18/20 benzonatate 100 mg capsule 100 mg PO TID PRN cough #30 caps 12/07/20 (Whit Lang) Results & Data (ED) Vital Signs Vital Signs - 24 hr 11/09/21 20:11 11/09/21 20:41 11/09/21 20:51 Temperature 36.8 C 36.8 C Temperature Source Temporal Artery Scan Oral Pulse Rate 86 69 Pulse Rate [Apical] 67 Pulse Rhythm Regular Pulse Rhythm [Apical] Regular Pulse Strength [Apical] Normal Respiratory Rate 18 20 20 Respiratory Effort / Characteristics Non-Labored Spontaneous Non-Labored Spontaneous Respiratory Depth Normal Normal Respiratory Pattern Regular Blood Pressure 216/123 H Blood Pressure [Right Arm] 204/116 H Blood Pressure Mean 154 Blood Pressure Mean [Right Arm] 145 Blood Pressure Position [Right Arm] Lying Pulse Oximetry 92 93 93 Oxygen Delivery Method Room Air Room Air Room Air Sepsis Recent Fever Within 48 Hours No Sepsis New/Unexplained Change in Mental Status N/A Sepsis Action Taken by Nursing No Action Required Home Medications Current Medication List: was personally reviewed by me Laboratory Data Attestation: I reviewed the patient's lab results. Result diagrams: 11/09/21 20:54 11/09/21 20:54 Lab Results 11/09/21 11/09/21 11/09/21 Range/Units 20:54 20:54 20:54 WBC 6.90 (4.8-10.8) K/ul RBC 4.86 (3.93-5.22) M/uL Hgb 15.7 (12.0-16.0) g/dl Hct 47.5 H (34.1-44.9) % MCV 97.7 (80.0-100.0) fL MCH 32.3 (25.0-34.0) pg MCHC 33.1 (32.0-36.0) g/dL RDW Std Deviation 47.8 H (36.4-46.3) fL RDW Coeff of Bryan 13.2 (11.5-14.5) % Plt Count 220 (130-400) K/uL MPV 9.3 L (9.4-12.3) fL Immature Gran % (Auto) 0.4 % Neut % (Auto) 49.2 % Lymph % (Auto) 33.3 % [place] % (Auto) 6.8 % Eos % (Auto) 9.9 % Baso % (Auto) 0.4 % Neut # (Auto) 3.39 (1.4-6.5) K/uL Lymph # (Auto) 2.30 (1.2-3.4) K/uL [place] # (Auto) 0.47 (0.24-0.82) K/uL Eos # (Auto) 0.68 H (0-0.50) K/uL Baso # (Auto) 0.03 (0-0.2) K/uL Immature Gran # (Auto) 0.03 H (0.00-0.02) K/uL Sodium 142 (136-145) mmol/L Potassium 3.9 (3.5-5.1) mmol/L Chloride 105 (98-107) mmol/L Carbon Dioxide 30 (21-32) mmol/L Anion Gap 7 (3-11) BUN 14 (6-23) mg/dl Creatinine 0.66 (0.6-1.2) mg/dl Est Cr Clr Drug Dosing 100.2 ml/min Est GFR ( Amer) 100.2 ml/min Est GFR (Non-Af Amer) 86.4 ml/min BUN/Creatinine Ratio 21.2 H (10-20) Glucose 116 H (70-99(Fasting)) mg/dl Calcium 9.1 (8.5-10.1) mg/dl Total Bilirubin 0.5 (0.2-1.0) mg/dl AST 41 H (13-39) U/L ALT 42 (7-52) U/L Alkaline Phosphatase 59 (34-104) U/L Troponin I High Sens 12.8 (0-14) pg/ml Total Protein 6.4 (6.0-8.3) gm/dl Albumin 3.8 (3.4-5.0) gm/dl Globulin 2.6 (2.5-4.0) gm/dl Albumin/Globulin Ratio 1.5 (0.9-2) SARS-CoV-2, RNA, NAAT NEGATIVE (NEGATIVE) Administered Medications Discontinued Medications Albuterol (Albut/Ipratrop 3mg/0.5mg Neb 3 Ml Vial) 6 ml INH NOW STA Stop: 11/09/21 20:27 Last Admin: 11/09/21 21:04 Dose: 6 ml Documented By: DIMA Azithromycin (Azithromycin 250 Mg Tab) 500 mg PO NOW ONE Stop: 11/09/21 20:27 Last Admin: 11/09/21 21:04 Dose: 500 mg Documented By: DIMA Magnesium Sulfate/Dextrose (Magnesium Sulfate / D5w) 1 gm in 100 mls @ 100 mls/hr IV Q1H HUSSEIN Stop: 11/09/21 22:29 Last Admin: 11/09/21 22:10 Dose: 100 mls/hr Documented By: Infusion: 11/09/21 22:09 Dose: 0 mls/hr Documented By: Admin: 11/09/21 21:05 Dose: 100 mls/hr Documented By: DIMA Ceftriaxone Sodium (Rocephin) 2,000 mg in 70 mls @ 140 mls/hr IV NOW STA Stop: 11/09/21 20:55 Last Infusion: 11/09/21 22:10 Dose: 0 mls/hr Documented By: Admin: 11/09/21 21:05 Dose: 140 mls/hr Documented By: DIMA Methylprednisolone (Methylprednisolone 125 Mg/2 Ml Vial) 60 mg IV NOW STA Stop: 11/09/21 20:27 Last Admin: 11/09/21 21:04 Dose: 60 mg Documented By: DIMA Discharge Plan Visit Data Chief Complaint: Referred by Doctor Stated Complaint: REF BY ED Provider: Seamus Flaherty Discharge Problem: Acute exacerbation of chronic obstructive pulmonary disease (COPD), Tobacco abuse, Acute electrocardiogram changes Patient Disposition: Admitted As Inpatient Forms Stand Alone Forms: [facility] Prescriptions Prescriptions: No Action fluticasone propion-salmeterol [Advair Diskus] 100-50 mcg/dose blister with device 1 inh INHALATION BID Incruse Ellipta 62.5 mcg/actuation blister with device 1 inh INHALATION DAILY alprazolam 1 mg Tablet 1 mg PO HS Qty: 10 0RF ascorbic acid (vitamin C) [Vitamin C] 1,000 mg Tablet 500 mg PO DAILY paroxetine HCl 30 mg tablet 60 mg PO HS omega 2-oyg-zkr-fish oil [Fish Oil] 1,000 mg (120 mg-180 mg) Capsule 1 cap PO HS aspirin 81 mg Tablet,Delayed Release (Dr/Ec) 81 mg PO HS Caltrate 600 plus D 600 mg (1,500 mg)-800 unit Tablet,Chewable 1 tab PO BID sumatriptan succinate 100 mg Tablet 100 mg PO UD PRN (Reason: Migraine Headache) cyanocobalamin (vitamin B-12) 1,000 mcg Tablet 1,000 mcg PO HS nitroglycerin 0.4 mg Tablet, Sublingual 0.4 mg sublingual USEASDIRECTD PRN (Reason: Chest Pain) albuterol sulfate 90 mcg/actuation Hfa Aerosol Inhaler 2 puff INHALATION Q6H PRN (Reason: SHORT OF BREATH) rosuvastatin 40 mg tablet 40 mg PO HS tizanidine 4 mg Tablet 4 mg PO TID PRN (Reason: MUSCLE SPASMS) ibuprofen 200 mg Tablet 400 mg PO Q6H PRN (Reason: Pain) lisinopril 10 mg tablet 10 mg PO DAILY benzonatate [Tessalon Perles] 100 mg capsule 100 mg PO TID PRN (Reason: cough) Qty: 30 0RF Referrals Referrals: Merlin Barrios MD [Primary Care Provider] -
[2021-11-09] MEDS ORDERED: ALBUT/IPRATROP 3MG/0.5MG NEB 3 ML VIAL INH STA (20:26)
[2021-11-09] MEDS ORDERED: methylPREDNISolone 125 MG/2 ML VIAL IV STA (20:26)
[2021-11-09] MEDS ORDERED: AZITHROMYCIN 250 MG TAB PO ONE (20:26)
[2021-11-09] MEDS ORDERED: cefTRIAXone SODIUM 2,000 MG/70 ML BAG IV STA (20:26)
[2021-11-09] MEDS: MAGNESIUM SULFATE / D5W 1 GM/100 ML BAG IV SCH ×2 (21:05→22:10)
[2021-11-09 21:06] LABS: Basophils # (auto) 0.03 K/uL (0-0.2); Basophils % (auto) 0.4 %; Eosinophils # (auto) 0.68 K/uL (0-0.50); Eosinophils % (auto) 9.9 %; Hematocrit (blood only) 47.5 % (34.1-44.9); Hemoglobin 15.7 g/dl (12.0-16.0); Immature Granulocytes # (auto) 0.03 K/uL (0.00-0.02); Immature Granulocytes % (auto) 0.4 %; Lymphocytes % (auto) 33.3 %; Mean Corpuscular Hemoglobin 32.3 pg (25.0-34.0); Mean Corpuscular Hgb Conc 33.1 g/dL (32.0-36.0); Mean Corpuscular Volume 97.7 fL (80.0-100.0); Mean Platelet Volume 9.3 fL (9.4-12.3); Monocytes # (auto) 0.47 K/uL (0.24-0.82); Monocytes % (auto) 6.8 %; Neutrophils # (auto) 3.39 K/uL (1.4-6.5); Neutrophils % (auto) 49.2 %; Platelet Count 220 K/uL (130-400); RDW Coefficient of Variation 13.2 % (11.5-14.5); RDW Standard Deviation 47.8 fL (36.4-46.3); Red Blood Count 4.86 M/uL (3.93-5.22)
[2021-11-09 21:28] LABS: Albumin Globulin Ratio 1.5 (0.9-2); Albumin Level 3.8 gm/dl (3.4-5.0); BUN Creatinine Ratio 21.2 (10-20); Bilirubin,Total 0.5 mg/dl (0.2-1.0); Calcium 9.1 mg/dl (8.5-10.1); Creatinine Clr Calc Pharmacy 100.2 ml/min; Est GFR (African American) 100.2 ml/min; Est GFR (Non-African American) 86.4 ml/min; Globulin 2.6 gm/dl (2.5-4.0); Potassium 3.9 mmol/L (3.5-5.1); Total Protein 6.4 gm/dl (6.0-8.3)
[2021-11-09 21:34] LABS: Troponin I High Sensitivity 12.8 pg/ml (0-14)
[2021-11-10] MEDS ORDERED: LEVALBUTEROL HCL 1.25 MG/3 ML NEB NEB PRN (01:57)
[2021-11-10] MEDS ORDERED: ALBUTEROL HFA 8 GM INHALER INH PRN (01:57)
[2021-11-10] MEDS ORDERED: BENZONATATE 100 MG CAPSULE PO PRN (01:57)
[2021-11-10] MEDS ORDERED: ASPIRIN CHEW 324 MG PO STA (01:57)
[2021-11-10] MEDS ORDERED: XOPENEX/ATROVENT 1.25mg/0.5MG NEB COMBO NEB SCH (01:57)
[2021-11-10] MEDS: NITROGLYCERIN 2% OINTMENT 30GM TUBE EXT SCH ×2 (02:27→08:40)
--- NOTE | 2021-11-10 02:42 | History and Physical Report ---
DATE OF ADMISSION: 11/09/2021. CHIEF COMPLAINT: Chest pain and shortness of breath. HISTORY OF PRESENT ILLNESS: A 75-year-old female with past medical history significant for prediabetes, hyperlipidemia, COPD, hypertension, history of CAD, history of migraine, spastic dysphonia, depression, delusional disorder, ongoing tobacco abuse, anxiety, history of mild sleep apnea, uses oxygen in the nighttime, history of atrial flutter, status post ablation, history of non-ST elevated DC, presents with shortness of breath going on for last 1 week with cough and also with chest pain going on for last 1 week. Chest pain is mostly mild, but once in a while it gets severe. When she came in, chest pain was 6/10 in severity, and currently it is resolved. She is also having some cough. Denies any fevers. Feeling dizzy. She had migraine headaches a couple of times last week, which is unusual for her. Denies any blurred visions. Has some postnasal drip, has some sore throat, no difficulty swallowing. No nausea, no abdominal pain. Normal bowel and bladder movements. Ambulating okay with a cane. Lives alone. She is still smoking. ALLERGIES: No known drug allergies. PAST MEDICAL HISTORY: As mentioned above. PAST SURGICAL HISTORY: Biopsy of the breast, , colonoscopy, lumbar diskectomy, ventral hernia repair, laparoscopy for endometriosis, right eye surgery, foot surgery. MEDICATIONS: As per [facility], the patient is on lovastatin 40 mg p.o. daily, alprazolam 1 mg p.o. daily, oxygen 2 liters at bedtime, Advair Diskus 100/50 one inhalation b.i.d., paroxetine 60 mg p.o. daily, albuterol 2 puffs p.r.n., nitroglycerin 0.4 mg p.r.n., lisinopril 10 mg p.o. daily, Incruse Ellipta one inhalation daily, [place] 3 fatty acid 1000 mg p.o. daily, Caltrate 600 daily, Artificial Tears daily, vitamin C 500 mg p.o. daily, vitamin B12 1000 mcg p.o. daily, albuterol nebulization p.r.n. FAMILY HISTORY: Significant for father of heart disorder in mid 70s, had hypertension; mother had thyroid disorder, heart attack, in the mid 70s; sister has breast cancer, diabetes, heart disease, thyroid disorder; brother has heart attack, diabetes. SOCIAL HISTORY: . Smokes 1 pack a day for last 55 years. Alcohol rare, no drug use. REVIEW OF SYSTEMS: As per HPI. Rest of the review of systems is negative. PHYSICAL EXAMINATION: GENERAL: The patient is obese, not in acute distress. VITAL SIGNS: Temperature 36.8, pulse 73, respiratory rate 20, blood pressure 202/104, oxygen 97% on room air. HEENT: Pupils equal, round and reactive to light. Oral mucosa moist. NECK: No JVD. No neck masses. CARDIOVASCULAR: S1 and S2 heard. Regular rate and rhythm. No murmur, no gallop. RESPIRATORY SYSTEM: Normal AP diameter. No accessory muscle use. Mild bilateral wheezing and mild rhonchi. ABDOMEN: Soft, bowel sounds present, nontender, no distention. CENTRAL NERVOUS SYSTEM: Cranial nerves II-XII grossly intact, nonfocal. EXTREMITIES: Mild pedal edema present, no erythema seen. LABORATORY DATA: WBC 6.9, hemoglobin 15.7, hematocrit 47.5, platelets 220. Sodium 142, potassium 3.9, chloride 105, bicarb 20, BUN 14, creatinine 0.6, serum glucose 116, calcium 9.1, total bilirubin 0.5, AST 41, ALT 42, alkaline phosphatase 59. Troponin I high sensitivity 12.8. SARS-CoV-2 rapid test negative. IMAGING DATA: Chest x-ray, no obvious findings. EKG: Shows sinus rhythm with marked sinus arrhythmia at a rate of 71. T-wave inversion more evident in lateral leads, but they were present in previous EKG also. ASSESSMENT AND PLAN: This is a 75-year-old female who presents with shortness of breath and chest pain. 1. Shortness of breath: Chronic obstructive pulmonary disease exacerbation, ongoing tobacco abuse. Received Solu-Medrol and nebs in the ER. Will continue with Solu-Medrol 40 mg t.i.d., nebs around the clock and p.r.n. Continue home inhalers. Placed on p.o. doxycycline and monitor in the tele floor. 2. Chest pain: Troponin is negative. EKG is showing some worsening T-wave in the lateral leads. Will follow the serial enzymes, echo. Will keep her n.p.o. after midnight. Consult cardiology in the a.m. for further recommendations. 3. Hypertensive urgency: Continue her lisinopril. Placed on nitroglycerin paste and labetalol p.r.n. Could be contributing to her chest pain. 4. History of coronary artery disease: As per the cardiology notes, she had 60% or 70% stenosis of the proximal left anterior descending and medical management was recommended. As per the EPIC, aspirin was stopped, but will place on aspirin for now and continue her statin. Await Cardiology input. 5. History of atrial flutter: Status post successful cavotricuspid isthmus ablation in May 2017. 6. History of bradycardia after ablation and the patient's diltiazem was discontinued. 7. History of hyperlipidemia: Continue statin. 8. History of prediabetes: Diabetic diet. Follow HbA1c levels. 9. History of migraine: Will monitor. 10. History of depression, delusional disorder: On paroxetine. 11. History of tobacco use disorder: Counselling on smoking cessation. 12. History of anxiety: On alprazolam. 13. History of nocturnal hypoxia and mild sleep apnea: On oxygen while sleeping. 14. Deep venous thrombosis prophylaxis: Will be placed on Lovenox. DISPOSITION: Closely monitor in the tele floor. Level 1 full code. Expect to discharge home and follow with family doctor. Social service to help with discharge planning. Job ID: [id number] DUANE
[2021-11-10] MEDS: IPRATROPIUM BROMIDE NEB SOLN 0.02% 2.5 ML VIAL INH SCH ×4 (03:00→19:37)
[2021-11-10] MEDS: LEVALBUTEROL 1.25MG/0.5ML NEB INH SCH ×4 (03:14→19:37)
[2021-11-10] MEDS: methylPREDNISolone 40 MG in SYRINGE 0 ML IV SCH ×3 (05:37→20:56)
[2021-11-10] MEDS: ENOXAPARIN INJ 40 MG/0.4 ML SYR SQ SCH ×2 (05:37→20:52)
[2021-11-10 05:54] LABS: Basophils # (auto) 0.01 K/uL (0-0.2); Basophils % (auto) 0.2 %; Eosinophils # (auto) 0.01 K/uL (0-0.50); Eosinophils % (auto) 0.2 %; Hematocrit (blood only) 47.6 % (34.1-44.9); Hemoglobin 16.1 g/dl (12.0-16.0); Immature Granulocytes # (auto) 0.01 K/uL (0.00-0.02); Immature Granulocytes % (auto) 0.2 %; Lymphocytes # (auto) 1.07 K/uL (1.2-3.4); Lymphocytes % (auto) 18.9 %; Mean Corpuscular Hemoglobin 32.2 pg (25.0-34.0); Mean Corpuscular Hgb Conc 33.8 g/dL (32.0-36.0); Mean Corpuscular Volume 95.2 fL (80.0-100.0); Mean Platelet Volume 9.2 fL (9.4-12.3); Monocytes # (auto) 0.06 K/uL (0.24-0.82); Monocytes % (auto) 1.1 %; Neutrophils # (auto) 4.49 K/uL (1.4-6.5); Neutrophils % (auto) 79.4 %; Platelet Count 216 K/uL (130-400); RDW Coefficient of Variation 12.8 % (11.5-14.5); RDW Standard Deviation 44.6 fL (36.4-46.3); White Blood Count 5.65 K/ul (4.8-10.8)
[2021-11-10] MEDS: NICOTINE 21 MG/24 HR TDSY TD SCH (06:16)
[2021-11-10 06:20] LABS: Troponin I High Sensitivity 9.8 pg/ml (0-14)
[2021-11-10 06:24] LABS: BUN Creatinine Ratio 20.6 (10-20); Calcium 8.9 mg/dl (8.5-10.1); Creatinine Clr Calc Pharmacy 90.3 ml/min; Est GFR (African American) 99.2 ml/min; Est GFR (Non-African American) 85.6 ml/min; Magnesium 2.1 mg/dl (1.7-2.4); Potassium 4.2 mmol/L (3.5-5.1)
--- NOTE | 2021-11-10 06:35 | XRay Report ---
XR chest 1V portable HISTORY: 75 years-old Female Dyspnea acute shortness of breath COMPARISON: Chest radiograph 02/13/2021 TECHNIQUE: Portable AP view of the chest FINDINGS: Cardiac silhouette is enlarged. Pulmonary vascular congestion. Mild bibasilar opacities with blunting of the costophrenic angles. No pneumothorax or large pleural effusion. Degenerative changes of the s houlders and spine. IMPRESSION: 1. Cardiomegaly with pulmonary vascular congestion. 2. Bibasilar opacities favor atelectasis. ACT 112: Negative or not required by law. The above report was generated using voice recognition software. It may contain grammatical, syntax o r spelling errors. Electronically signed by: Jimmie Andrews M.D. 11/10/2021 6:34 AM
[2021-11-10 07:06] LABS: Estimated Average Glucose 126 mg/dl
[2021-11-10] MEDS: ASPIRIN 81 MG ECTAB PO SCH (08:31)
[2021-11-10] MEDS: ASCORBIC ACID 500 MG TAB PO SCH (08:31)
[2021-11-10] MEDS: UMECLIDINIUM BROMIDE 62.5MCG/BLISTER 7 PUFFS/INHALER INH SCH (08:34)
[2021-11-10] MEDS: DOXYCYCLINE HYCLATE 100 MG CAP PO SCH ×2 (08:40→20:54)
[2021-11-10] MEDS ORDERED: lisinopril 10 MG TAB PO SCH (09:00)
--- NOTE | 2021-11-10 09:37 | Cardiology Consultation ---
Date of Consultation November 10, 2021 Assessment & Plan (1) Acute exacerbation of chronic obstructive pulmonary disease (COPD): (2) Hypertensive urgency: (3) Chest pain at rest: (4) Abnormal EKG: (5) ASCVD (arteriosclerotic cardiovascular disease): (6) Dyslipidemia, goal LDL below 70: Plan COPD exacerbation. As per Hospitalist. Tobacco cessation recommended. Hypertension, hypertensive heart disease, hypertensive urgency. Increase lisinopril to 20 mg/day. Add low dose beta-micky therapy cautiously, carvedilol 3.125 mg twice a day. Add amlodipine 5 mg/day. Discontinue nitro paste, RE: headaches, nausea. Atypical chest pain, at rest. Abnormal EKG, more pronounced anterolateral ST-T wave abnormality; results similar to prior through the years. High sensitivity Troponin I negative. Resting echocardiography with normal wall motion, normal left ventricular systolic function. Continue aspirin, high intensity statin therapy, and as needed sublingual nitroglycerin. Add low dose beta-micky therapy and calcium channel micky therapy as above. Recommend referral for p harmacological stress testing once blood pressure is appropriately controlled and patient is over the acute COPD exacerbation Dyslipidemia. Continue high intensity statin therapy, rosuvastatin 40 mg/day. Recommend targeting an optimal LDL cholesterol goal of less than 70 mg/deciliter. Atrial flutter. 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 Supervising Physician Co-Signing Physician Notes 75-year-old female admitted with COPD exacerbation and chest discomfort. Cardiac enzymes within normal limits. ECG demonstrating lateral ST-T wave abnormality which is chronic and unchanged compared to prior studies. No recurrent chest discomfort since admission. Blood pressure markedly elevated. PE: VSS. Gen: NAD, AAO x3. Heart: Regular rhythm, normal S1-S2. No murmur. Lungs: Diminished breath sounds bilaterally. Soft right-sided end expiratory wheeze. Extremities: No edema. Neuro: No focal deficits. A/P: Agree with above PA-C history, physical exam, assessment and plan. Titrate lisinopril and add amlodipine to improve blood pressure control. Cautious addition of beta-micky therapy. ECG personally reviewed without significant changes compared to previous. Patient chest pain-free currently. Recommend further evaluation with pharmacologic stress testing when COPD exacerbation has resolved. Other cardiovascular medications including high intensity statin therapy and aspirin will be continued. Smoking cessation strongly advised. Thank you for allowing me to participate in the care of your patient. History of Present Illness Reason for Consultation: Chest pain, elevated blood pressure Requesting Physician: Jose D Attending Physician: Zac History of Present Illness Ms. aSmantha Wilder is a 75 year old female who presented to the [facility] Emergency Room with a chief complaint of worsening shorntess of breath. Patient notes worsening dyspnea over the last week or so, cough productive of sputum, increased oxygen demands. She describes chest discomfort that is reproducible with palpation of the chest and 2-3 attacks of chest pain occurring last Sunday and again two nights ago. The pain involved the entire chest bilaterallly and was nonradiating, lasting for about 15 mintues, occurred at rest (while sitting at home watching television). EKG on presentation revealed sinus rhythm at 71 bpm with sinus arrhythmia with ST-T wave changes laterally that are similar to prior tracings through the years. A second EKG on the day of admission revealed sinus rhythm at 78 bpm with sinus arrhythmia with similar ST-T wave changes anterolaterally. EKG this morning reveals sinus rhythm at 75 bpm with premature supraventricular complexes and more prominent T wave changes. High sensitivity Troponin I on presentation was 12.8 then 9.8 pg/ml. Resting echocardiography this morning showed no significant change compared to prior - normal LV wall motion, normal LV systolic funciton, EF 60-65%, mild concentric LVH, Grade I diastolic dysfunction. RV size and function was normal. No significant valvular pathology observed. Blood pressure was 216/123 on presentation and has remained elevated throughout. Additional complaints include a headache since admission that she attributes to abrupt tobacco cessation on presentation, typically smoking 1 ppd. She notes a history of sinus headaches and migraines. She notes dizziness and nausea "like when I had the Covid." She describes having brain fog since having Covid approximately two years ago. She describes being shaky, weak, and having no energy. She notes that all she wants to do is sleep. Cardiac history 1. Atrial flutter status post May 2017 successful caval tricuspid isthmus ablation with post procedure monitor revealing no recurrence leading to discontinuation of anticoagulation. 2. Type 2 NSTEMI associated with pneumonia/COPD exacerbation in April 2018. After her pulmonary status improved she underwent coronary angiography on 05/13/2018, revealing an intermediate 60-70% stenosis of the proximal LAD just before the bifurcation of a large diagonal branch that was not hemodynamically significant by FFR. 3. Hypertension 4. Dyslipidemia Allergies Allergy/AdvReac Type Severity Reaction Status Date / Time No Known Allergies Allergy Verified 12/07/20 15:42 Home Medications Medication Instructions Recorded Confirmed Type ascorbic acid (vitamin C) 1,000 mg 500 mg PO DAILY 05/10/18 12/07/20 History tablet (Vitamin C) aspirin 81 mg tablet,delayed 81 mg PO HS 05/10/18 12/07/20 History release calcium carbonate 600 mg-vitamin 1 tab PO BID 05/10/18 12/07/20 History D3 20 mcg (800 unit) chewable tablet (Caltrate 600 plus D) omega 6-tkp-iay-fish oil 1,000 mg 1 cap PO HS 05/10/18 12/07/20 History (120 mg-180 mg) capsule (Fish Oil) paroxetine HCl 30 mg tablet 60 mg PO HS 05/10/18 12/07/20 History albuterol sulfate 90 mcg/actuation 2 puff inhalation Q6H PRN SHORT OF 01/14/19 12/07/20 History aerosol inhaler BREATH cyanocobalamin (vitamin B-12) 1,000 mcg PO HS 01/14/19 12/07/20 History 1,000 mcg tablet nitroglycerin 0.4 mg sublingual 0.4 mg sublingual USEASDIRECTD PRN 01/14/19 12/07/20 History tablet Chest Pain sumatriptan succinate 100 mg tablet 100 mg PO UD PRN Migraine Headache 01/14/19 12/07/20 History rosuvastatin 40 mg tablet 40 mg PO HS 10/10/19 12/07/20 History tizanidine 4 mg tablet 4 mg PO TID PRN MUSCLE SPASMS 12/26/19 12/07/20 History ibuprofen 200 mg tablet 400 mg PO Q6H PRN Pain 02/03/20 12/07/20 History fluticasone 100 mcg-salmeterol 50 1 inh inhalation BID 02/10/20 12/07/20 History mcg/dose blistr powdr for inhalation (Advair Diskus) umeclidinium 62.5 mcg/actuation 1 inh inhalation DAILY 02/10/20 12/07/20 History blister powder for inhalation (Incruse Ellipta) alprazolam 1 mg tablet 1 mg PO HS #10 tabs 02/18/20 12/07/20 Rx benzonatate 100 mg capsule 100 mg PO TID PRN cough #30 caps 12/07/20 Rx (Tessalnéstor Lang) lisinopril 10 mg tablet 10 mg PO DAILY 12/07/20 12/07/20 History Patient History Medical History Anxiety and depression Atrial flutter s/p ablation 05/2017. Follows with [facility] cardio. CAD (coronary artery disease) Nonobstructive by 2018 cardiac cath. NSTEMI ruled 2/2 coronary spasm. COPD (chronic obstructive pulmonary disease) 2.5 LPM VIA N/C ONLY AT HS. Advair daily, rarely using rescue inhaler, ~ 3x per month Continues to smoke 1ppd Degenerative disc disease Hyperlipidemia Hypertension Myocardial Infarction NSTEMI 04/2018 [facility] On home oxygen therapy 2.5L AT HS Osteoarthritis Sleep apnea "MILD" ONLY WEARS O2 AT 2.5L AT HS Tobacco abuse Surgical History History of breast biopsy History of cardiac cath 04/2018 for NSTEMI, Nonobstructive moderate proximal to mid LAD disease. History of cardiac radiofrequency ablation 2018 History of section X 2 History of colonoscopy History of dilatation and curettage History of discectomy LUMBAR History of eye surgery RT EYE (CAN'T REMEMBER WHAT FOR) History of laparoscopy 2/2 endometriosis History of open reduction and internal fixation (ORIF) procedure RT ANKLE History of tooth extraction Family History Father Hypertension Brother Diabetes Depression Family history of diabetes mellitus Sister Depression Family history of diabetes mellitus Social History Smoking Status: Current every day smoker Tobacco Type: Cigars Cigarettes Per Day: 20 DAILY; Second Hand Exposure: No; Hx Alcohol Use: No Hx Substance Use: No Preferred Language: Italian Communication Ability: Effective Visual Impairment: No Limitations Hearing Ability: Normal Vp Home Health Required: No Beliefs That Will Affect Care: None marital status: Current Living Situation: Alone How many Children do You have: 2 Feels Safe at Home: Yes Safety Concerns: Feels Safe At This Time Assistive Devices: Cane, Oxygen - at Night and Walker Review of Systems Review of Systems: Complete Review of Systems is as stated above, negative, or noncontributory. Physical Exam Physical Exam: General: A&Ox3. NAD. Elevated BMI HENT: Normocephalic. Atraumatic. Eyes: PER. Conjunctiva pink, sclera clear. Neck: ? Left carotid bruit. No JVD. No HJR. Heart: Regular at 84 bpm. Distant heart sounds. No murmur appreciated. No rub. Lungs: Diminished. Decreased. Poor air exchange. Faint right sided wheeze. Abdomen: +BS. Soft. Nontender. No masses or organomegaly. Extremities: No clubbing, cyanosis, or edema. Limited neurological examination is without focal deficits. Pulses: radial=2/4, posterior tibial=1/4. Results & Data ([facility]) Vital Signs (Past 12 Hours) Vital Signs Temp Pulse Pulse Resp BP BP BP 11/10/21 07:42 83 11/10/21 07:41 36.4 C L 89 12 195/102 H 11/10/21 07:21 69 18 11/10/21 04:12 36.3 C L 80 18 11/10/21 04:09 89 11/10/21 01:50 11/10/21 01:50 36.3 C L 84 22 183/123 H 11/10/21 03:01 11/10/21 01:08 79 14 189/104 H 11/10/21 01:00 74 20 11/09/21 23:00 73 20 202/104 H 11/09/21 22:10 80 20 Pulse Ox O2 Del Method O2 Flow Rate 11/10/21 07:42 11/10/21 07:41 91 Nasal Cannula 2 11/10/21 07:21 94 Nasal Cannula 2 11/10/21 04:12 93 Nasal Cannula 2.0 11/10/21 04:09 11/10/21 01:50 Room Air, Nasal Cannula 2 11/10/21 01:50 92 Nasal Cannula 2 11/10/21 03:01 2 11/10/21 01:08 93 Room Air 11/10/21 01:00 97 Room Air 11/09/21 23:00 97 Room Air 11/09/21 22:10 97 Room Air Laboratory Results Cardiac Enzymes 11/09/21 11/10/21 Range/Units 20:54 05:39 AST 41 H (13-39) U/L Troponin I High Sens 12.8 9.8 (0-14) pg/ml CBC 11/09/21 11/10/21 Range/Units 20:54 05:39 WBC 6.90 5.65 (4.8-10.8) K/ul RBC 4.86 5.00 (3.93-5.22) M/uL Hgb 15.7 16.1 H (12.0-16.0) g/dl Hct 47.5 H 47.6 H (34.1-44.9) % Plt Count 220 216 (130-400) K/uL Neut # (Auto) 3.39 4.49 (1.4-6.5) K/uL Lymph # (Auto) 2.30 1.07 L (1.2-3.4) K/uL [place]ack[place]ord # (Auto) 0.47 0.06 L (0.24-0.82) K/uL Eos # (Auto) 0.68 H 0.01 (0-0.50) K/uL Baso # (Auto) 0.03 0.01 (0-0.2) K/uL Comprehensive Metabolic Panel 11/09/21 11/10/21 Range/Units 20:54 05:39 Sodium 142 138 (136-145) mmol/L Potassium 3.9 4.2 (3.5-5.1) mmol/L Chloride 105 103 (98-107) mmol/L Carbon Dioxide 30 29 (21-32) mmol/L BUN 14 14 (6-23) mg/dl Creatinine 0.66 0.68 (0.6-1.2) mg/dl Glucose 116 H 140 H (70-99(Fasting)) mg/dl Calcium 9.1 8.9 (8.5-10.1) mg/dl AST 41 H (13-39) U/L ALT 42 (7-52) U/L Alkaline Phosphatase 59 (34-104) U/L Total Protein 6.4 (6.0-8.3) gm/dl Albumin 3.8 (3.4-5.0) gm/dl Intake and Output 11/09/21 11/10/21 11/10/21 22:59 06:59 14:59 Intake Total 170 / 270 100 / 270 Balance 170 / 270 100 / 270 Intake: IV 170 / 270 100 / 270 Magnesium Sulfate / D5w 1 gm In 100 / 200 100 / 200 100 ml @ 100 mls/hr IV Q1H HUSSEIN Rx#:[id number] cefTRIAXone SODIUM 2,000 mg In 70 / 70 70 ml @ 140 mls/hr IV NOW STA Rx#:[id number] Other: Other Intake Source NPO # Unmeasured Voids 1 Weight 119.6 kg 104.2 kg Weight Measurement Method Built in Bedscale Standing Scale Diagnostic Findings Telemetry: Sinus in the 70's and 80's. No significant bradycardia. No atrial a rrhythmias.
[2021-11-10] MEDS: lisinopril 20 MG TAB PO SCH (09:42)
[2021-11-10] MEDS: amLODIPine BESYLATE 5 MG TAB PO SCH (10:54)
[2021-11-10] MEDS: carvediloL 3.125 MG TAB PO SCH ×2 (10:54→20:55)
[2021-11-10] MEDS ORDERED: ALPRAZolam 0.5 MG TABLET PO STA ×2 (10:59→11:23)
[2021-11-10] MEDS ORDERED: LORazepam 0.5 MG TAB PO STA (11:17)
[2021-11-10] MEDS: LABETALOL HCL IV 5 MG/ML 20ML IV PRN (11:25)
--- NOTE | 2021-11-10 12:48 | Electrocardiogram Report ---
Test Reason : Blood Pressure : / mmHG Vent. Rate : 071 BPM Atrial Rate : 071 BPM P-R Int : 144 ms QRS Dur : 098 ms QT Int : 370 ms P-R-T Axes : 062 -21 127 degrees QTc Int : 402 ms Sinus rhythm with marked sinus arrhythmia Abnormal ECG When compared with ECG of 13-FEB-2021 20:21, T wave inversion more evident in Lateral leads Confirmed by Adin Wood ([id number]) on 11/10/2021 12:48:13 PM Referred By: REFERRED SELF Confirmed By:Adin Wood
--- NOTE | 2021-11-10 12:50 | Electrocardiogram Report ---
Test Reason : Blood Pressure : / mmHG Vent. Rate : 078 BPM Atrial Rate : 078 BPM P-R Int : 160 ms QRS Dur : 102 ms QT Int : 392 ms P-R-T Axes : 062 -21 138 degrees QTc Int : 446 ms Sinus rhythm with marked sinus arrhythmia Abnormal ECG When compared with ECG of 09-NOV-2021 20:34, (unconfirmed) No significant change was found Confirmed by Adin Wood ([id number]) on 11/10/2021 12:50:26 PM Referred By: REFERRED SELF Confirmed By:Adin Wood
--- NOTE | 2021-11-10 12:54 | Electrocardiogram Report ---
Test Reason : Blood Pressure : / mmHG Vent. Rate : 075 BPM Atrial Rate : 075 BPM P-R Int : 160 ms QRS Dur : 092 ms QT Int : 406 ms P-R-T Axes : 066 -26 119 degrees QTc Int : 453 ms Sinus rhythm with Premature supraventricular complexes Abnormal ECG When compared with ECG of 09-NOV-2021 22:46, (unconfirmed) Premature supraventricular complexes are now Present T wave inversion more evident in Anterolateral leads Confirmed by Adin Wood ([id number]) on 11/10/2021 12:54:45 PM Referred By: REFERRED SELF Confirmed By:Adin Wood
[2021-11-10] MEDS ORDERED: LABETALOL HCL IV 5 MG/ML 20ML IV STA (14:59)
--- NOTE | 2021-11-10 15:01 | Hospitalist Progress Note ---
Date of Service November 10, 2021 Assessment & Plan (1) Acute exacerbation of chronic obstructive pulmonary disease (COPD): Plan: Admitted with increasing shortness of breath noted to have wheezing all over Chest x-ray did not show pneumonia She was started with intravenous Solu-Medrol and nebulized bronchodilator and IV doxycycline Clinically improving (2) Chest pain at rest: Plan: Complaint to have nonspecific chest pain Has significant cardiac disease including CAD and history of atrial flutter Serial troponins have been negative for any ACS Appreciate cardiology input and recommendation Echo of the heart showed EF of 60 to 65%, there is mild concentric LVH, grade 1 diastolic dysfunction, RV size is normal, RV systolic function is qualitatively normal and no significant valvular pathology (3) Hypertensive urgency: Plan: Noted to have very high blood pressure on admission Remained hypertensive at 211/119 Lisinopril dose has been increased to 20 mg from 10 mg and Amlodipine 5 mg and carvedilol were added this morning We will continue with as needed intravenous labetalol (4) CAD (coronary artery disease): (5) Atrial flutter: Plan: Heart rate remains elevated at 100 Denies any chest pain and/or palpitation (6) Hypertension: Plan: As above (7) Depression: Plan: Has history of anxiety and depression We will continue current medications including Xanax (8) Dyslipidemia, goal LDL below 70: Plan: Continue statin Admission and Anticipated Discharge Date Admission Date: November 09, 2021 Subjective 11/10/2021 The patient was seen and examined in telemetry unit She has been complaining of headache, nausea without vomiting and generalized discomfort due to anxiety Denies any chest pain and/or palpitation Her shortness of breath is better Review of Systems Review of Systems: All systems reviewed and are unremarkable except as noted below Respiratory: Minimal shortness of breath at rest Psychiatric: Generalized anxiety Physical Exam Physical Exam: Lying in bed with some distress due to headache and nausea Constitutional: well developed, well nourished, + ill appearing and + obese Eyes: PERRL, conjunctivae normal, anicteric sclerae ENMT: external ear and nose normal, oropharynx normal Neck: trachea midline, no thyromegaly Respiratory: no respiratory distress Auscultation: + diminished lung sounds, + crackles (Bibasilar) and + wheezes (Minimal wheezing all over) Gastrointestinal (Abdomen): Inspection/Auscultation: normal bowel sounds; abdomen not distended Percussion/Palpation: abdomen soft; abdomen nontender Musculoskeletal: No acute arthritis in any joint Neurologic: normal touch/pain/proprioception and moves all extremities; no focal motor deficits and not confused Psychiatric: Very anxious Lymphatic: no cervical or axillary lymphadenopathy Results & Data Results & Data ([facility]) Vital Signs (Past 12 Hours) Vital Signs Temp Pulse Pulse Resp BP Pulse Ox O2 Del Method 11/10/21 11:48 36.5 C 100 H 22 211/119 H 91 Room Air 11/10/21 10:53 102 H 195/118 H 11/10/21 10:15 Nasal Cannula 11/10/21 09:40 179/108 H 11/10/21 07:42 83 11/10/21 07:41 36.4 C L 89 12 195/102 H 91 Nasal Cannula 11/10/21 07:21 69 18 94 Nasal Cannula 11/10/21 04:12 36.3 C L 80 18 93 Nasal Cannula 11/10/21 04:09 89 11/10/21 03:01 O2 Flow Rate 11/10/21 11:48 11/10/21 10:53 11/10/21 10:15 2 11/10/21 09:40 11/10/21 07:42 11/10/21 07:41 2 11/10/21 07:21 2 11/10/21 04:12 2.0 11/10/21 04:09 11/10/21 03:01 2 Laboratory Results Short CBC 11/09/21 11/10/21 Range/Units 20:54 05:39 WBC 6.90 5.65 (4.8-10.8) K/ul Hgb 15.7 16.1 H (12.0-16.0) g/dl Hct 47.5 H 47.6 H (34.1-44.9) % Plt Count 220 216 (130-400) K/uL BMP 11/09/21 11/10/21 20:54 05:39 Sodium 142 138 Potassium 3.9 4.2 Chloride 105 103 Carbon Dioxide 30 29 BUN 14 14 Creatinine 0.66 0.68 Glucose 116 H 140 H Calcium 9.1 8.9 Liver Function 11/09/21 Range/Units 20:54 Total Bilirubin 0.5 (0.2-1.0) mg/dl AST 41 H (13-39) U/L ALT 42 (7-52) U/L Alkaline Phosphatase 59 (34-104) U/L Albumin 3.8 (3.4-5.0) gm/dl Medications Administered Current Inpatient Medications Acetaminophen (Acetaminophen 325 Mg Tab) 650 mg PO Q4H PRN PRN Reason: Pain or Fever Stop: 12/10/21 01:56 Albuterol (Albuterol Hfa 8 Gm Inhaler) 2 puffs INH Q6H PRN PRN Reason: SHORT OF BREATH Stop: 12/10/21 01:56 Alprazolam (Alprazolam 0.5 Mg Tablet) 1 mg PO HS HUSSEIN Stop: 12/10/21 20:59 Amlodipine Besylate (Amlodipine Besylate 5 Mg Tab) 5 mg PO QAM HUSSEIN Stop: 12/10/21 10:29 Last Admin: 11/10/21 10:54 Dose: 5 mg Ascorbic Acid (Ascorbic Acid 500 Mg Tab) 500 mg PO DAILY HUSSEIN Stop: 12/10/21 08:59 Last Admin: 11/10/21 08:31 Dose: 500 mg Aspirin (Aspirin 81 Mg Ectab) 81 mg PO DAILY HUSSEIN Stop: 12/10/21 08:59 Last Admin: 11/10/21 08:31 Dose: 81 mg Benzonatate (Benzonatate 100 Mg Capsule) 100 mg PO TID PRN PRN Reason: cough Stop: 12/10/21 01:56 Carvedilol (Carvedilol 3.125 Mg Tab) 3.125 mg PO BID HUSSEIN Stop: 12/10/21 10:29 Last Admin: 11/10/21 10:54 Dose: 3.125 mg Cyanocobalamin (Cyanocobalamin (B-12) 500 Mcg Tablet) 1,000 mcg PO HS HUSSEIN Stop: 12/10/21 20:59 Doxycycline Hyclate (Doxycycline Hyclate 100 Mg Cap) 100 mg PO BID HUSSEIN Stop: 11/17/21 08:59 Last Admin: 11/10/21 08:40 Dose: 100 mg Enoxaparin Sodium (Enoxaparin Inj 40 Mg/0.4 Ml Syr) 40 mg SQ Q12 [facility]USSEIN Stop: 12/10/21 04:59 Last Admin: 11/10/21 05:37 Dose: Not Given Methylprednisolone 40 mg/ (Syringe) 0.64 mls @ 1.5 mls/min IV Q8H HUSSEIN Stop: 12/10/21 04:59 Last Admin: 11/10/21 12:09 Dose: 1.5 mls/min Ipratropium Palo (Ipratropium [place] Neb Soln 0.02% 2.5 Ml Vial) 0.5 mg INH Q6R [facility]USSEIN Stop: 12/10/21 01:56 Last Admin: 11/10/21 14:14 Dose: Not Given Labetalol HCl (Labetalol Hcl Iv 5 Mg/Ml 20ml) 10 mg IV Q4H PRN PRN Reason: Hypertension Stop: 12/10/21 01:56 Last Admin: 11/10/21 11:25 Dose: 10 mg Levalbuterol HCl (Levalbuterol 1.25mg/0.5ml Neb) 1.25 mg INH Q6R HUSSEIN Stop: 12/10/21 01:56 Last Admin: 11/10/21 14:15 Dose: Not Given Levalbuterol HCl (Levalbuterol Hcl 1.25 Mg/3 Ml Neb) 1.25 mg NEB Q4H PRN; Protocol PRN Reason: Shortness Of Breath Or Wheezing Stop: 12/10/21 01:56 Lisinopril (Lisinopril 20 Mg Tab) 20 mg PO DAILY [facility] Stop: 12/10/21 08:59 Last Admin: 11/10/21 09:42 Dose: 20 mg Miscellaneous (Remove Nicoderm Patch) 1 each N/A DAILY@0859 [facility] Stop: 12/11/21 08:58 Nicotine (Nicotine 21 Mg/24 Hr Tdsy) 21 mg TD QAM [facility] Stop: 12/10/21 05:49 Last Admin: 11/10/21 06:16 Dose: 21 mg Nitroglycerin (Nitroglycerin Sl 0.4 Mg/Tab Tab) 0.4 mg SL UD PRN PRN Reason: Chest Pain Stop: 12/10/21 01:56 Paroxetine HCl (Paroxetine Hcl 20 Mg Tab) 60 mg PO HS [facility]IN Stop: 12/10/21 20:59 Rosuvastatin Calcium (Rosuvastatin Calcium 20 Mg Tab) 40 mg PO HS [facility]IN Stop: 12/10/21 20:59 Sumatriptan Succinate (Sumatriptan Succinate 100 Mg Tab) 100 mg PO DAILY PRN PRN Reason: Migraine Headache Stop: 12/10/21 01:56 Umeclidinium Palo (Umeclidinium [place] 62.5mcg/Blister 7 Puffs/Inhaler) 1 puffs INH DAILY [facility]IN Stop: 12/10/21 08:59 Last Admin: 11/10/21 08:34 Dose: 1 puffs (1) CAD (coronary artery disease) Coronary Disease-Associated Artery/Lesion type: ruby artery [place] vs. transplanted heart: ruby heart Associated angina: without angina Qualified Code(s): I25.10 - Atherosclerotic heart disease of ruby coronary artery without angina pectoris (2) Hypertension Hypertension type: essential hypertension Qualified Code(s): I10 - Essential (primary) hypertension
[2021-11-10] MEDS: ALPRAZolam 0.5 MG TABLET PO SCH (20:52)
[2021-11-10] MEDS: ROSUVASTATIN CALCIUM 20 MG TAB PO SCH (20:54)
[2021-11-10] MEDS: CYANOCOBALAMIN (B-12) 500 MCG TABLET PO SCH (20:55)
[2021-11-10] MEDS: PARoxetine HCL 20 MG TAB PO SCH (20:55)
[2021-11-10] MEDS: SUMAtriptan succinate 100 MG TAB PO PRN (23:36)
[2021-11-11] MEDS: IPRATROPIUM BROMIDE NEB SOLN 0.02% 2.5 ML VIAL INH SCH ×4 (01:28→19:15)
[2021-11-11] MEDS: LEVALBUTEROL 1.25MG/0.5ML NEB INH SCH ×4 (01:28→19:15)
[2021-11-11] MEDS: methylPREDNISolone 40 MG in SYRINGE 0 ML IV SCH (04:29)
[2021-11-11 07:19] LABS: Basophils # (auto) 0.01 K/uL (0-0.2); Basophils % (auto) 0.1 %; Hemoglobin 16.6 g/dl (12.0-16.0); Immature Granulocytes # (auto) 0.04 K/uL (0.00-0.02); Immature Granulocytes % (auto) 0.3 %; Lymphocytes # (auto) 1.23 K/uL (1.2-3.4); Lymphocytes % (auto) 10.3 %; Mean Corpuscular Hemoglobin 32.5 pg (25.0-34.0); Mean Corpuscular Hgb Conc 33.9 g/dL (32.0-36.0); Mean Corpuscular Volume 95.9 fL (80.0-100.0); Mean Platelet Volume 9.4 fL (9.4-12.3); Monocytes # (auto) 0.23 K/uL (0.24-0.82); Monocytes % (auto) 1.9 %; Neutrophils # (auto) 10.39 K/uL (1.4-6.5); Neutrophils % (auto) 87.4 %; Platelet Count 235 K/uL (130-400); RDW Coefficient of Variation 13.2 % (11.5-14.5); RDW Standard Deviation 46.7 fL (36.4-46.3); Red Blood Count 5.11 M/uL (3.93-5.22)
[2021-11-11 07:45] LABS: BUN Creatinine Ratio 29.6 (10-20); Calcium 9.4 mg/dl (8.5-10.1); Est GFR (African American) 96.6 ml/min; Est GFR (Non-African American) 83.3 ml/min; Magnesium 2.1 mg/dl (1.7-2.4); Potassium 4.2 mmol/L (3.5-5.1)
[2021-11-11] MEDS: carvediloL 3.125 MG TAB PO SCH ×2 (08:59→20:23)
[2021-11-11] MEDS: ASPIRIN 81 MG ECTAB PO SCH (09:00)
[2021-11-11] MEDS: lisinopril 20 MG TAB PO SCH (09:00)
[2021-11-11] MEDS: DOXYCYCLINE HYCLATE 100 MG CAP PO SCH ×2 (09:00→20:24)
[2021-11-11] MEDS: amLODIPine BESYLATE 5 MG TAB PO SCH (09:01)
[2021-11-11] MEDS: ASCORBIC ACID 500 MG TAB PO SCH (09:01)
[2021-11-11] MEDS: NICOTINE 21 MG/24 HR TDSY TD SCH (09:02)
[2021-11-11] MEDS: UMECLIDINIUM BROMIDE 62.5MCG/BLISTER 7 PUFFS/INHALER INH SCH (09:02)
[2021-11-11] MEDS: ENOXAPARIN INJ 40 MG/0.4 ML SYR SQ SCH (09:03)
--- NOTE | 2021-11-11 10:34 | Electrocardiogram Report ---
Test Reason : Blood Pressure : / mmHG Vent. Rate : 071 BPM Atrial Rate : 071 BPM P-R Int : 174 ms QRS Dur : 100 ms QT Int : 422 ms P-R-T Axes : 062 -10 169 degrees QTc Int : 458 ms Sinus rhythm with marked sinus arrhythmia Abnormal ECG When compared with ECG of 10-NOV-2021 05:22, Premature supraventricular complexes are no longer Present Nonspecific T wave abnormality now evident in Inferior leads Confirmed by Adin Wood ([id number]) on 11/11/2021 10:34:36 AM Referred By: REFERRED SELF Confirmed By:Adin Wood
--- NOTE | 2021-11-11 11:33 | Cardiology Progress Note ---
Date of Service November 11, 2021 Assessment & Plan (1) Acute exacerbation of chronic obstructive pulmonary disease (COPD): (2) Hypertensive urgency: (3) Chest pain at rest: (4) Abnormal EKG: (5) ASCVD (arteriosclerotic cardiovascular disease): (6) Dyslipidemia, goal LDL below 70: Plan COPD exacerbation. As per Hospitalist. Tobacco cessation recommended. Hypertension, hypertensive heart disease, hypertensive urgency. Blood pressures have improved from a high of 216/123 on presentation to 150/73 this morning, following titration of lisinopril to 20 mg/day, the addition of carvedilol 3.125 mg BID, and the addition of amlodipine 5 mg/day. Continue as prescribed for now. Atypical chest pain, at rest. Abnormal EKG, more pronounced anterolateral ST-T wave abnormality; results similar to prior through the years. High sensitivity Troponin I negative. Resting echocardiography with normal wall motion, normal left ventricular systolic function. Continue aspirin, high intensity statin therapy, as needed sublingual nitroglycerin, low dose beta-micky therapy, and calcium channel micky therapy as above. Recommend pharmacological stress testing once blood pressure is appropriately controlled and patient is over the acute COPD exacerbation, as an outpatient. Dyslipidemia. Continue high intensity statin therapy, rosuvastatin 40 mg/day. Recommend targeting an optimal LDL cholesterol goal of less than 70 mg/dL Atrial flutter. 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 Admission and Anticipated Discharge Date Admission Date: November 09, 2021 Supervising Physician Co-Signing Physician Notes 75-year-old female admitted with COPD exacerbation and chest discomfort. Respiratory status and blood pressure improving. Telemetry reveals sinus rhythm. No orthopnea or PND. Tolerating medication changes listed above. PE: VSS. Gen: NAD, AAO x3. Heart: Regular rhythm, normal S1-S2. No murmur. Lungs: Diminished breath sounds bilaterally. B/L expiratory wheeze. Extremities: No edema. Neuro: No focal deficits. A/P: Agree with above PA-C history, physical exam, assessment and plan. Continue current antihypertensive medications including cautious addition of beta-micky therapy. Outpatient pharmacologic stress test when COPD exacerbation has resolved. Smoking cessation advised. Cardiology will sign off for the weekend. Please call with any concerns/questions. Subjective Patient seen and examined. Chart, medications, and telemetry reviewed. Patient feels better overall. Headaches have resolved. Breathing has improved. No further chest pain. Ongoing cough, chronic expiratory wheezing. EKG this morning reveals sinus rhythm at 71 bpm with sinus arrhythmia and stable ST-T wave changes anterolaterally. Continuous telemetry monitoring reveals sinus rhythm predominantly in the 60s and 70s. No significant bradycardia. No atrial arrhythmias. Review of Systems Review of Systems: Complete Review of Systems is as stated above, negative, or noncontributory. Physical Exam Physical Exam: General: A&Ox3. NAD. Elevated BMI HENT: Normocephalic. Atraumatic. Eyes: PER. Conjunctiva pink, sclera clear. Neck: ? Left carotid bruit. No JVD. No HJR. Heart: Regular at 72 bpm. Distant heart sounds. No murmur appreciated. No rub. Lungs: Diminished. Decreased. Poor air exchange. Diffuse expiratory wheezing heard throughout. Abdomen: +BS. Soft. Nontender. No masses or organomegaly. Extremities: No clubbing, cyanosis, or edema. Limited neurological examination is without focal deficits. Pulses: radial=2/4, posterior tibial=1/4. Results & Data ([facility]) Vital Signs (Past 12 Hours) Vital Signs Temp Pulse Pulse Resp BP Pulse Ox Pulse Ox 11/11/21 08:12 90 11/11/21 08:00 61 11/11/21 08:00 11/11/21 08:00 90 11/11/21 07:16 71 17 90 11/11/21 01:57 93 11/11/21 03:00 36.7 C 78 18 150/73 H 96 11/11/21 01:29 64 18 94 11/11/21 00:33 67 O2 Del Method O2 Del Method O2 Flow Rate O2 Flow Rate 11/11/21 08:12 Room Air 11/11/21 08:00 11/11/21 08:00 Room Air 11/11/21 08:00 Room Air 11/11/21 07:16 Room Air 11/11/21 01:57 Nasal Cannula 3 11/11/21 03:00 Nasal Cannula 3 11/11/21 01:29 Nasal Cannula 3 11/11/21 00:33 Laboratory Results Cardiac Enzymes 11/10/21 11/10/21 Range/Units 11:02 17:44 Troponin I High Sens 8.5 12.2 (0-14) pg/ml CBC 11/11/21 Range/Units 07:02 WBC 11.90 H (4.8-10.8) K/ul RBC 5.11 (3.93-5.22) M/uL Hgb 16.6 H (12.0-16.0) g/dl Hct 49.0 H (34.1-44.9) % Plt Count 235 (130-400) K/uL Neut # (Auto) 10.39 H (1.4-6.5) K/uL Lymph # (Auto) 1.23 (1.2-3.4) K/uL [place] # (Auto) 0.23 L (0.24-0.82) K/uL Eos # (Auto) 0.00 (0-0.50) K/uL Baso # (Auto) 0.01 (0-0.2) K/uL Comprehensive Metabolic Panel 11/11/21 Range/Units 07:02 Sodium 136 (136-145) mmol/L Potassium 4.2 (3.5-5.1) mmol/L Chloride 101 (98-107) mmol/L Carbon Dioxide 26 (21-32) mmol/L BUN 21 (6-23) mg/dl Creatinine 0.71 (0.6-1.2) mg/dl Glucose 149 H (70-99(Fasting)) mg/dl Calcium 9.4 (8.5-10.1) mg/dl Intake and Output 11/10/21 11/11/21 11/11/21 22:59 06:59 14:59 Intake Total 300 / 1020 720 / 1020 Output Total 300 / 301 Balance 300 / 719 420 / 719 Intake: Oral 300 / 1020 720 / 1020 Output: Urine 300 / 300 Other: # Unmeasured Voids 2 Weight 104.2 kg 103 kg Weight Measurement Method Built in [facility]
[2021-11-11] MEDS: LABETALOL HCL IV 5 MG/ML 20ML IV PRN ×2 (11:48→18:00)
--- NOTE | 2021-11-11 15:49 | Hospitalist Progress Note ---
Date of Service November 11, 2021 Assessment & Plan (1) Acute exacerbation of chronic obstructive pulmonary disease (COPD): Plan: Admitted with increasing shortness of breath noted to have wheezing all over Chest x-ray did not show pneumonia She was started with intravenous Solu-Medrol and nebulized bronchodilator and IV doxycycline Clinically improving Will change the Solu-Medrol to oral prednisone from tomorrow We will get PT and OT evaluation and possible discharge in a day or 2 (2) Chest pain at rest: Plan: Complaint to have nonspecific chest pain Has significant cardiac disease including CAD and history of atrial flutter Serial troponins have been negative for any ACS Appreciate cardiology input and recommendation Echo of the heart showed EF of 60 to 65%, there is mild concentric LVH, grade 1 diastolic dysfunction, RV size is normal, RV systolic function is qualitatively normal and no significant valvular pathology No more chest pain and no ACS Pharmacological stress test as an outpatient (3) Hypertensive urgency: Plan: Noted to have very high blood pressure on admission Remained hypertensive at 211/119 Lisinopril dose has been increased to 20 mg from 10 mg and Amlodipine 5 mg and carvedilol were added this morning We will continue with as needed intravenous labetalol Blood pressure is well controlled (4) CAD (coronary artery disease): (5) Atrial flutter: Plan: Heart rate remains elevated at 100 Denies any chest pain and/or palpitation (6) Hypertension: Plan: As above (7) Depression: Plan: Has history of anxiety and depression We will continue current medications including Xanax (8) Dyslipidemia, goal LDL below 70: Plan: Continue statin Admission and Anticipated Discharge Date Admission Date: November 09, 2021 Subjective 11/10/2021 The patient was seen and examined in telemetry unit She has been complaining of headache, nausea without vomiting and generalized discomfort due to anxiety Denies any chest pain and/or palpitation Her shortness of breath is better 11/11/2021 The patient was seen and examined in telemetry unit She has been feeling much better but complains to have severe attacks of migr saravanan for that she has to take Imitrex Her blood pressure seems to be stable Her breathing is much better Review of Systems Review of Systems: All systems reviewed and are unremarkable except as noted below Neurologic: Migraine headache Physical Exam Physical Exam: Lying in bed with some distress due to headache and nausea Constitutional: well developed, well nourished, + ill appearing and + obese Eyes: PERRL, conjunctivae normal, anicteric sclerae ENMT: external ear and nose normal, oropharynx normal Neck: trachea midline, no thyromegaly Respiratory: no respiratory distress Auscultation: + diminished lung sounds, + crackles (Bibasilar) and + wheezes (Minimal wheezing all over) Gastrointestinal (Abdomen): Inspection/Auscultation: normal bowel sounds; abdomen not distended Percussion/Palpation: abdomen soft; abdomen nontender Musculoskeletal: No acute arthritis in any joint Neurologic: normal touch/pain/proprioception and moves all extremities; no focal motor deficits and not confused Psychiatric: Very anxious Lymphatic: no cervical or axillary lymphadenopathy Results & Data Results & Data ([facility]) Vital Signs (Past 12 Hours) Vital Signs Temp Pulse Pulse Resp BP Pulse Ox Pulse Ox 11/11/21 13:27 71 19 92 11/11/21 11:00 36.5 C 83 16 110/72 97 11/11/21 08:12 90 11/11/21 08:00 61 11/11/21 08:00 11/11/21 08:00 90 11/11/21 07:16 71 17 90 O2 Del Method O2 Del Method O2 Flow Rate 11/11/21 13:27 Nasal Cannula 2 11/11/21 11:00 11/11/21 08:12 Room Air 11/11/21 08:00 11/11/21 08:00 Room Air 11/11/21 08:00 Room Air 11/11/21 07:16 Room Air Laboratory Results Short CBC 11/11/21 Range/Units 07:02 WBC 11.90 H (4.8-10.8) K/ul Hgb 16.6 H (12.0-16.0) g/dl Hct 49.0 H (34.1-44.9) % Plt Count 235 (130-400) K/uL BMP 11/11/21 07:02 Sodium 136 Potassium 4.2 Chloride 101 Carbon Dioxide 26 BUN 21 Creatinine 0.71 Glucose 149 H Calcium 9.4 Medications Administered Current Inpatient Medications Acetaminophen (Acetaminophen 325 Mg Tab) 650 mg PO Q4H PRN PRN Reason: Pain or Fever Stop: 12/10/21 01:56 Albuterol (Albuterol Hfa 8 Gm Inhaler) 2 puffs INH Q6H PRN PRN Reason: SHORT OF BREATH Stop: 12/10/21 01:56 Alprazolam (Alprazolam 0.5 Mg Tablet) 1 mg PO HS HUSSEIN Stop: 12/10/21 20:59 Last Admin: 11/10/21 20:52 Dose: 1 mg Amlodipine Besylate (Amlodipine Besylate 5 Mg Tab) 5 mg PO QAM HUSSEIN Stop: 12/10/21 10:29 Last Admin: 11/11/21 09:01 Dose: 5 mg Ascorbic Acid (Ascorbic Acid 500 Mg Tab) 500 mg PO DAILY HUSSEIN Stop: 12/10/21 08:59 Last Admin: 11/11/21 09:01 Dose: 500 mg Aspirin (Aspirin 81 Mg Ectab) 81 mg PO DAILY HUSSEIN Stop: 12/10/21 08:59 Last Admin: 11/11/21 09:00 Dose: 81 mg Benzonatate (Benzonatate 100 Mg Capsule) 100 mg PO TID PRN PRN Reason: cough Stop: 12/10/21 01:56 Last Admin: 11/11/21 12:26 Dose: 100 mg Carvedilol (Carvedilol 3.125 Mg Tab) 3.125 mg PO BID HUSSEIN Stop: 12/10/21 10:29 Last Admin: 11/11/21 08:59 Dose: 3.125 mg Cyanocobalamin (Cyanocobalamin (B-12) 500 Mcg Tablet) 1,000 mcg PO HS HUSSEIN Stop: 12/10/21 20:59 Last Admin: 11/10/21 20:55 Dose: 1,000 mcg Doxycycline Hyclate (Doxycycline Hyclate 100 Mg Cap) 100 mg PO BID HUSSEIN Stop: 11/17/21 08:59 Last Admin: 11/11/21 09:00 Dose: 100 mg Enoxaparin Sodium (Enoxaparin Inj 40 Mg/0.4 Ml Syr) 40 mg SQ Q12 HUSSEIN Stop: 12/10/21 04:59 Last Admin: 11/11/21 09:03 Dose: 40 mg Ipratropium [place] (Ipratropium [place] Neb Soln 0.02% 2.5 Ml Vial) 0.5 mg INH Q6R HUSSEIN Stop: 12/10/21 01:56 Last Admin: 11/11/21 13:27 Dose: 0.5 mg Labetalol HCl (Labetalol Hcl Iv 5 Mg/Ml 20ml) 10 mg IV Q4H PRN PRN Reason: Hypertension Stop: 12/10/21 01:56 Last Admin: 11/11/21 11:48 Dose: 10 mg Levalbuterol HCl (Levalbuterol 1.25mg/0.5ml Neb) 1.25 mg INH Q6R HUSSEIN Stop: 12/10/21 01:56 Last Admin: 11/11/21 13:27 Dose: 1.25 mg Levalbuterol HCl (Levalbuterol Hcl 1.25 Mg/3 Ml Neb) 1.25 mg NEB Q4H PRN; Protocol PRN Reason: Shortness Of Breath Or Wheezing Stop: 12/10/21 01:56 Lisinopril (Lisinopril 20 Mg Tab) 20 mg PO DAILY [facility] Stop: 12/10/21 08:59 Last Admin: 11/11/21 09:00 Dose: 20 mg Miscellaneous (Remove Nicoderm Patch) 1 each N/A DAILY@0859 [facility] Stop: 12/11/21 08:58 Last Admin: 11/11/21 08:59 Dose: 1 each Nicotine (Nicotine 21 Mg/24 Hr Tdsy) 21 mg TD QAM HUSSEIN Stop: 12/10/21 05:49 Last Admin: 11/11/21 09:02 Dose: 21 mg Nitroglycerin (Nitroglycerin Sl 0.4 Mg/Tab Tab) 0.4 mg SL UD PRN PRN Reason: Chest Pain Stop: 12/10/21 01:56 Paroxetine HCl (Paroxetine Hcl 20 Mg Tab) 60 mg PO HS [facility] Stop: 12/10/21 20:59 Last Admin: 11/10/21 20:55 Dose: 60 mg Prednisone (Prednisone 20 Mg Tab) 40 mg PO DAILY HUSSEIN Stop: 12/12/21 08:59 Rosuvastatin Calcium (Rosuvastatin Calcium 20 Mg Tab) 40 mg PO HS [facility] Stop: 12/10/21 20:59 Last Admin: 11/10/21 20:54 Dose: 40 mg Sumatriptan Succinate (Sumatriptan Succinate 100 Mg Tab) 100 mg PO DAILY PRN PRN Reason: Migraine Headache Stop: 12/10/21 01:56 Last Admin: 11/10/21 23:36 Dose: 100 mg Umeclidinium [place] (Umeclidinium [place] 62.5mcg/Blister 7 Puffs/Inhaler) 1 puffs INH DAILY HUSSEIN Stop: 12/10/21 08:59 Last Admin: 11/11/21 09:02 Dose: 1 puffs (1) CAD (coronary artery disease) Coronary Disease-Associated Artery/Lesion type: [place] artery [place] vs. transplanted heart: [place] heart Associated angina: without angina Qualified Code(s): I25.10 - Atherosclerotic heart disease of [place] coronary artery without angina pectoris (2) Hypertension Hypertension type: essential hypertension Qualified Code(s): I10 - Essential (primary) hypertension
[2021-11-11] MEDS ORDERED: LORazepam 2 MG/1 ML VIAL IV STA (17:45)
[2021-11-11] MEDS: NITROGLYCERIN SL 0.4 MG/TAB TAB SL PRN ×2 (17:55→18:00)
[2021-11-11] MEDS ORDERED: MoRPHine SULFATE 4 MG/ML 1 ML CARP\\VIAL IV STA ×2 (18:02→20:58)
--- NOTE | 2021-11-11 18:06 | Communication Note ---
Date of Service: November 11, 2021 The patient complained to have severe chest pain in the precordial area and around the left breast associated with minimal shortness of breath but noted to have very high blood pressure of systolic more than 200 Stat EKG was unremarkable and stat troponin has been sent She received sublingual nitro x2 without much improvement of the precordial pain Will give 4 mg of morphine IV for anxiety and pain She has been feeling better with this management at the bedside Pressure has been improving and her pain seems to be improving to Will observe in the telemetry unit DR Regino mora
[2021-11-11] MEDS ORDERED: Heparin IV Adult Wt-Based Standard *NO* Bolus Protocol IV SCH (19:48)
[2021-11-11] MEDS ORDERED: HEPARIN SODIUM/DEXTROSE 25,000 UNITS/500 ML BAG IV SCH (20:15)
[2021-11-11] MEDS: NITROGLYCERIN 2% OINTMENT 30GM TUBE EXT SCH (20:22)
[2021-11-11] MEDS: CYANOCOBALAMIN (B-12) 500 MCG TABLET PO SCH (20:24)
[2021-11-11] MEDS: PARoxetine HCL 20 MG TAB PO SCH (20:24)
[2021-11-11] MEDS: ROSUVASTATIN CALCIUM 20 MG TAB PO SCH (20:24)
[2021-11-11 21:21] LABS: INR 1.1 (0.9-1.1); Partial Thromboplastin Ratio 0.9; Partial Thromboplastin Time 25.6 Seconds (21.0-31.0); Prothrombin Time 11.4 Seconds (9.0-12.0)
[2021-11-11] MEDS: ALPRAZolam 0.5 MG TABLET PO SCH (21:25)
[2021-11-12] MEDS: IPRATROPIUM BROMIDE NEB SOLN 0.02% 2.5 ML VIAL INH SCH ×4 (01:09→19:06)
[2021-11-12] MEDS: LEVALBUTEROL 1.25MG/0.5ML NEB INH SCH ×4 (01:09→19:06)
[2021-11-12] MEDS: NITROGLYCERIN 2% OINTMENT 30GM TUBE EXT SCH ×2 (01:58→08:08)
[2021-11-12 03:39] LABS: Basophils # (auto) 0.01 K/uL (0-0.2); Basophils % (auto) 0.1 %; Eosinophils # (auto) 0.01 K/uL (0-0.50); Eosinophils % (auto) 0.1 %; Hematocrit (blood only) 44.2 % (34.1-44.9); Hemoglobin 14.8 g/dl (12.0-16.0); Immature Granulocytes # (auto) 0.03 K/uL (0.00-0.02); Immature Granulocytes % (auto) 0.3 %; Lymphocytes # (auto) 2.38 K/uL (1.2-3.4); Lymphocytes % (auto) 21.8 %; Mean Corpuscular Hemoglobin 32.6 pg (25.0-34.0); Mean Corpuscular Hgb Conc 33.5 g/dL (32.0-36.0); Mean Corpuscular Volume 97.4 fL (80.0-100.0); Mean Platelet Volume 9.2 fL (9.4-12.3); Monocytes # (auto) 0.84 K/uL (0.24-0.82); Monocytes % (auto) 7.7 %; Neutrophils # (auto) 7.64 K/uL (1.4-6.5); Platelet Count 217 K/uL (130-400); RDW Coefficient of Variation 13.5 % (11.5-14.5); RDW Standard Deviation 48.3 fL (36.4-46.3); Red Blood Count 4.54 M/uL (3.93-5.22); White Blood Count 10.91 K/ul (4.8-10.8)
[2021-11-12 04:04] LABS: BUN Creatinine Ratio 35.1 (10-20); Calcium 8.5 mg/dl (8.5-10.1); Creatinine Clr Calc Pharmacy 79.3 ml/min; Est GFR (African American) 87.5 ml/min; Est GFR (Non-African American) 75.5 ml/min; Potassium 4.2 mmol/L (3.5-5.1)
[2021-11-12 04:07] LABS: Partial Thromboplastin Ratio 2.8
[2021-11-12 04:11] LABS: Partial Thromboplastin Time 77.6 Seconds (21.0-31.0)
[2021-11-12 04:12] LABS: Troponin I High Sensitivity 111.9 pg/ml (0-14)
[2021-11-12] MEDS: lisinopril 20 MG TAB PO SCH (08:06)
[2021-11-12] MEDS: ASCORBIC ACID 500 MG TAB PO SCH (08:06)
[2021-11-12] MEDS: predniSONE 20 MG TAB PO SCH (08:06)
[2021-11-12] MEDS: amLODIPine BESYLATE 5 MG TAB PO SCH (08:07)
[2021-11-12] MEDS: DOXYCYCLINE HYCLATE 100 MG CAP PO SCH ×2 (08:07→21:23)
[2021-11-12] MEDS: ASPIRIN 81 MG ECTAB PO SCH (08:07)
[2021-11-12] MEDS: carvediloL 3.125 MG TAB PO SCH ×2 (08:07→21:24)
[2021-11-12] MEDS: NICOTINE 21 MG/24 HR TDSY TD SCH (08:07)
[2021-11-12] MEDS: UMECLIDINIUM BROMIDE 62.5MCG/BLISTER 7 PUFFS/INHALER INH SCH (08:08)
--- NOTE | 2021-11-12 08:19 | Communication Note ---
Date of Service: November 12, 2021 Patient was till having chest pain radiating to left arm after morphine. Troponin elevated at 130. EKG no acute findings. Placed on nitropaste, started on iv heparin, npo after midnight, and repeat troponin levels. Gave another dose of morphine. Cardiology already consulted.Thanks
[2021-11-12 11:01] LABS: Partial Thromboplastin Ratio 3.9
--- NOTE | 2021-11-12 11:45 | Cardiology Progress Note ---
Date of Service November 12, 2021 Assessment & Plan (1) Acute exacerbation of chronic obstructive pulmonary disease (COPD): (2) Hypertensive urgency: (3) Chest pain at rest: (4) Abnormal EKG: (5) ASCVD (arteriosclerotic cardiovascular disease): (6) Dyslipidemia, goal LDL below 70: Plan COPD exacerbation. As per Hospitalist. Tobacco cessation recommended. Hypertension, hypertensive heart disease, hypertensive urgency. Blood pressures have improved from a high of 216/123 on presentation to 150/73 this morning, following titration of lisinopril to 20 mg/day, the addition of carvedilol 3.125 mg BID, and the addition of amlodipine 5 mg/day. Continue as prescribed for now. Atypical chest pain, at rest. Abnormal EKG, more pronounced anterolateral ST-T wave abnormality; results similar to prior through the years. High sensitivity Troponin I negative. Resting echocardiography with normal wall motion, normal left ventricular systolic function. Continue aspirin, high intensity statin therapy, as needed sublingual nitroglycerin, low dose beta-micky therapy, and calcium channel micky therapy as above. Recommend pharmacological stress testing once blood pressure is appropriately controlled and patient is over the acute COPD exacerbation, as an outpatient. Dyslipidemia. Continue high intensity statin therapy, rosuvastatin 40 mg/day. Recommend targeting an optimal LDL cholesterol goal of less than 70 mg/dL Atrial flutter. 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 11/12/2021 Slowly improving as blood pressure improves. Episode of chest discomfort last night and persistent throughout the night not aided by sublingual nitroglycerin, relieved with morphine. Troponins elevated but flat no acute EKG changes. Patient has a history of known single-vessel branch coronary artery disease by cardiac catheterization 2019 suspect exacerbation of symptoms in association with hypertensive urgency and acute pulmonary complaints We will discontinue IV heparin Add oral isosorbide mononitrate at 60 mg/day to above regimen. No further room to titrate carvedilol given resting bradycardia. Continue lisinopril and amlodipine Taper corticosteroids when able Admission and Anticipated Discharge Date Admission Date: November 09, 2021 Subjective Patient seen and examined, chart, medications, telemetry reviewed. Patient notable for hypertensive event last evening with associated persistent chest pain no acute changes on EKG Begun on IV heparin. Troponins elevated but flat Current with chronic pain respiratory status improved. Hypertension slowly improving with relative resting bradycardia Review of Systems Review of Systems: All systems reviewed & are unremarkable except as noted in Subjective Physical Exam Physical Exam: General: A&Ox3. NAD. Elevated BMI HENT: Normocephalic. Atraumatic. Eyes: PER. Conjunctiva pink, sclera clear. Neck: No JVD. No HJR. Heart: Regular at 72 bpm. Distant heart sounds. No murmur appreciated. No rub. Lungs: Diminished. Decreased. Poor air exchange. Diffuse expiratory wheezing heard throughout. Abdomen: +BS. Soft. Nontender. No masses or organomegaly. Extremities: No clubbing, cyanosis, or edema. Limited neurological examination is without focal deficits. Pulses: radial=2/4, posterior tibial=1/4. Results & Data ([facility]) Vital Signs (Past 12 Hours) Vital Signs Temp Pulse Pulse Resp BP Pulse Ox O2 Del Method 11/12/21 08:00 51 L 11/12/21 08:00 Nasal Cannula 11/12/21 08:11 36.9 C 48 L 18 159/91 H 95 Room Air 11/12/21 07:06 71 16 95 Nasal Cannula 11/12/21 04:00 36.6 C 61 18 166/81 H 91 11/12/21 01:55 78 143/83 H 11/12/21 01:09 70 18 95 Nasal Cannula O2 Flow Rate 11/12/21 08:00 11/12/21 08:00 2 11/12/21 08:11 11/12/21 07:06 3 11/12/21 04:00 11/12/21 01:55 11/12/21 01:09 3 Laboratory Results Laboratory Results - last 24 hr 11/11/21 11/11/21 11/11/21 17:58 17:59 20:51 WBC RBC Hgb Hct MCV MCH MCHC RDW Std Deviation RDW Coeff of Bryan Plt Count MPV Immature Gran % (Auto) Neut % (Auto) Lymph % (Auto) [place] % (Auto) Eos % (Auto) Baso % (Auto) Neut # (Auto) Lymph # (Auto) [place] # (Auto) Eos # (Auto) Baso # (Auto) Immature Gran # (Auto) PT 11.4 INR 1.1 APTT 25.6 PTT Ratio 0.9 Sodium Potassium Chloride Carbon Dioxide Anion Gap BUN Creatinine Est Cr Clr Drug Dosing Est GFR ( Amer) Est GFR (Non-Af Amer) BUN/Creatinine Ratio Glucose POC Glucose 184 H Calcium Troponin I High Sens 138.2 H* D 11/12/21 11/12/21 11/12/21 00:19 03:26 03:26 WBC 10.91 H RBC 4.54 Hgb 14.8 Hct 44.2 MCV 97.4 MCH 32.6 MCHC 33.5 RDW Std Deviation 48.3 H RDW Coeff of Bryan 13.5 Plt Count 217 MPV 9.2 L Immature Gran % (Auto) 0.3 Neut % (Auto) 70.0 Lymph % (Auto) 21.8 [place] % (Auto) 7.7 Eos % (Auto) 0.1 Baso % (Auto) 0.1 Neut # (Auto) 7.64 H Lymph # (Auto) 2.38 [place] # (Auto) 0.84 H Eos # (Auto) 0.01 Baso # (Auto) 0.01 Immature Gran # (Auto) 0.03 H PT INR APTT 77.6 H* PTT Ratio 2.8 Sodium Potassium Chloride Carbon Dioxide Anion Gap BUN Creatinine Est Cr Clr Drug Dosing Est GFR ( Amer) Est GFR (Non-Af Amer) BUN/Creatinine Ratio Glucose POC Glucose Calcium Troponin I High Sens 118.2 H* 11/12/21 11/12/21 03:26 10:14 WBC RBC Hgb Hct MCV MCH MCHC RDW Std Deviation RDW Coeff of Bryan Plt Count MPV Immature Gran % (Auto) Neut % (Auto) Lymph % (Auto) [place] % (Auto) Eos % (Auto) Baso % (Auto) Neut # (Auto) Lymph # (Auto) [place] # (Auto) Eos # (Auto) Baso # (Auto) Immature Gran # (Auto) PT INR APTT 107.0 H* PTT Ratio 3.9 Sodium 139 Potassium 4.2 Chloride 105 Carbon Dioxide 29 Anion Gap 5 BUN 27 H Creatinine 0.77 Est Cr Clr Drug Dosing 79.3 Est GFR ( Amer) 87.5 Est GFR (Non-Af Amer) 75.5 BUN/Creatinine Ratio 35.1 H Glucose 124 H POC Glucose Calcium 8.5 Troponin I High Sens 111.9 H*
[2021-11-12] MEDS ORDERED: ISOSORBIDE MONO EXTENDED REL 30 MG TABCR PO SCH (12:00)
[2021-11-12] MEDS: ISOSORBIDE MONO EXTENDED REL 60 MG TABCR PO SCH (13:07)
[2021-11-12] MEDS: ENOXAPARIN INJ 40 MG/0.4 ML SYR SQ SCH ×2 (13:07→23:03)
--- NOTE | 2021-11-12 15:18 | Hospitalist Progress Note ---
Date of Service November 12, 2021 Assessment & Plan (1) Acute exacerbation of chronic obstructive pulmonary disease (COPD): Plan: Admitted with increasing shortness of breath noted to have wheezing all over Chest x-ray did not show pneumonia She was started with intravenous Solu-Medrol and nebulized bronchodilator and IV doxycycline Clinically improving Will change the Solu-Medrol to oral prednisone from tomorrow We will get PT and OT evaluation and possible discharge in a day or 2 (2) Chest pain at rest: Plan: Complaint to have nonspecific chest pain Has significant cardiac disease including CAD and history of atrial flutter Serial troponins have been negative for any ACS Appreciate cardiology input and recommendation Echo of the heart showed EF of 60 to 65%, there is mild concentric LVH, grade 1 diastolic dysfunction, RV size is normal, RV systolic function is qualitatively normal and no significant valvular pathology No more chest pain and no ACS Pharmacological stress test as an outpatient Significant chest in the evening of 11/11/2021 Did not relieve with sublingual nitro x2 but later on relieved with intravenous morphine of 4 mg Initial EKG was unremarkable and troponin noted to be elevated at 130s She was started with intravenous heparin by the night doctor Subsequent troponin came out to be negative and EKG did not show any change Elevation of troponin likely secondary to a stress induced cardiac ischemia secondary to high blood pressure Heparin discontinued Appreciate cardiology recommendation of adding isosorbide mononitrate (3) Hypertensive urgency: Plan: Noted to have very high blood pressure on admission Remained hypertensive at 211/119 Lisinopril dose has been increased to 20 mg from 10 mg and Amlodipine 5 mg and carvedilol were added this morning We will continue with as needed intravenous labetalol Blood pressure is well controlled (4) CAD (coronary artery disease): (5) Atrial flutter: Plan: Heart rate remains elevated at 100 Denies any chest pain and/or palpitation (6) Hypertension: Plan: As above (7) Depression: Plan: Has history of anxiety and depression We will continue current medications including Xanax (8) Dyslipidemia, goal LDL below 70: Plan: Continue statin Admission and Anticipated Discharge Date Admission Date: November 09, 2021 Subjective 11/10/2021 The patient was seen and examined in telemetry unit She has been complaining of headache, nausea without vomiting and generalized discomfort due to anxiety Denies any chest pain and/or palpitation Her shortness of breath is better 11/11/2021 The patient was seen and examined in telemetry unit She has been feeling much better but complains to have severe attacks of migraine for that she has to take Imitrex Her blood pressure seems to be stable Her breathing is much better 11/12/2021 The patient was seen and examined in telemetry unit Still complains some precordial pain Denies any other symptoms No shortness of breath, wheezing, nausea and or vomiting Review of Systems Review of Systems: All systems reviewed and are unremarkable except as noted below Respiratory: Minimal shortness of breath at rest Neurologic: Migraine headache Psychiatric: Generalized anxiety Physical Exam Physical Exam: Lying in bed without any acute distress Constitutional: well developed, well nourished, + ill appearing and + obese Eyes: PERRL, conjunctivae normal, anicteric sclerae ENMT: external ear and nose normal, oropharynx normal Neck: trachea midline, no thyromegaly Respiratory: no respiratory distress Auscultation: + diminished lung sounds, + crackles (Bibasilar) and + wheezes (Minimal wheezing all over) Chest (Breasts): Additional Comments: Significant tenderness over costochondral junction on the left side on palpation Gastrointestinal (Abdomen): Inspection/Auscultation: normal bowel sounds; abdomen not distended Percussion/Palpation: abdomen soft; abdomen nontender Musculoskeletal: No acute arthritis involving any of the joint Neurologic: normal touch/pain/proprioception and moves all extremities; no focal motor deficits and not confused Lymphatic: no cervical or axillary lymphadenopathy Results & Data Results & Data ([facility]) Vital Signs (Past 12 Hours) Vital Signs Temp Pulse Pulse Resp BP Pulse Ox O2 Del Method 11/12/21 14:07 69 16 93 Nasal Cannula 11/12/21 12:39 36.8 C 58 L 16 168/94 H 91 Nasal Cannula 11/12/21 08:00 51 L 11/12/21 08:00 Nasal Cannula 11/12/21 08:11 36.9 C 48 L 18 159/91 H 95 Room Air 11/12/21 07:06 71 16 95 Nasal Cannula 11/12/21 04:00 36.6 C 61 18 166/81 H 91 O2 Flow Rate 11/12/21 14:07 3 11/12/21 12:39 3 11/12/21 08:00 11/12/21 08:00 2 11/12/21 08:11 11/12/21 07:06 3 11/12/21 04:00 Laboratory Results Short CBC 11/12/21 Range/Units 03:26 WBC 10.91 H (4.8-10.8) K/ul Hgb 14.8 (12.0-16.0) g/dl Hct 44.2 (34.1-44.9) % Plt Count 217 (130-400) K/uL BMP 11/12/21 03:26 Sodium 139 Potassium 4.2 Chloride 105 Carbon Dioxide 29 BUN 27 H Creatinine 0.77 Glucose 124 H Calcium 8.5 Medications Administered Current Inpatient Medications Acetaminophen (Acetaminophen 325 Mg Tab) 650 mg PO Q4H PRN PRN Reason: Pain or Fever Stop: 12/10/21 01:56 Albuterol (Albuterol Hfa 8 Gm Inhaler) 2 puffs INH Q6H PRN PRN Reason: SHORT OF BREATH Stop: 12/10/21 01:56 Alprazolam (Alprazolam 0.5 Mg Tablet) 1 mg PO HS [facility] Stop: 12/10/21 20:59 Last Admin: 11/11/21 21:25 Dose: 1 mg Amlodipine Besylate (Amlodipine Besylate 5 Mg Tab) 5 mg PO QAM [facility] Stop: 12/10/21 10:29 Last Admin: 11/12/21 08:07 Dose: 5 mg Ascorbic Acid (Ascorbic Acid 500 Mg Tab) 500 mg PO DAILY [facility] Stop: 12/10/21 08:59 Last Admin: 11/12/21 08:06 Dose: 500 mg Aspirin (Aspirin 81 Mg Ectab) 81 mg PO DAILY [facility] Stop: 12/10/21 08:59 Last Admin: 11/12/21 08:07 Dose: 81 mg Benzonatate (Benzonatate 100 Mg Capsule) 100 mg PO TID PRN PRN Reason: cough Stop: 12/10/21 01:56 Last Admin: 11/11/21 12:26 Dose: 100 mg Carvedilol (Carvedilol 3.125 Mg Tab) 3.125 mg PO BID [facility] Stop: 12/10/21 10:29 Last Admin: 11/12/21 08:07 Dose: 3.125 mg Cyanocobalamin (Cyanocobalamin (B-12) 500 Mcg Tablet) 1,000 mcg PO HS [facility] Stop: 12/10/21 20:59 Last Admin: 11/11/21 20:24 Dose: 1,000 mcg Doxycycline Hyclate (Doxycycline Hyclate 100 Mg Cap) 100 mg PO BID [facility] Stop: 11/17/21 08:59 Last Admin: 11/12/21 08:07 Dose: 100 mg Enoxaparin Sodium (Enoxaparin Inj 40 Mg/0.4 Ml Syr) 40 mg SQ Q12H [facility] Stop: 12/12/21 11:59 Last Admin: 11/12/21 13:07 Dose: 40 mg Ipratropium [place] (Ipratropium [place] Neb Soln 0.02% 2.5 Ml Vial) 0.5 mg INH Q6R [facility] Stop: 12/10/21 01:56 Last Admin: 11/12/21 14:07 Dose: 0.5 mg Isosorbide Mononitrate (Isosorbide [place] Extended Rel 60 Mg Tabcr) 60 mg PO QAM [facility] Stop: 12/12/21 11:59 Last Admin: 11/12/21 13:07 Dose: 60 mg Labetalol HCl (Labetalol Hcl Iv 5 Mg/Ml 20ml) 10 mg IV Q4H PRN PRN Reason: Hypertension Stop: 12/10/21 01:56 Last Admin: 11/11/21 18:00 Dose: 10 mg Levalbuterol HCl (Levalbuterol 1.25mg/0.5ml Neb) 1.25 mg INH Q6R [facility] Stop: 12/10/21 01:56 Last Admin: 11/12/21 14:06 Dose: 1.25 mg Levalbuterol HCl (Levalbuterol Hcl 1.25 Mg/3 Ml Neb) 1.25 mg NEB Q4H PRN; Protocol PRN Reason: Shortness Of Breath Or Wheezing Stop: 12/10/21 01:56 Lisinopril (Lisinopril 20 Mg Tab) 20 mg PO DAILY [facility] Stop: 12/10/21 08:59 Last Admin: 11/12/21 08:06 Dose: 20 mg Miscellaneous (Remove Nicoderm Patch) 1 each N/A DAILY@0859 [facility] Stop: 12/11/21 08:58 Last Admin: 11/12/21 08:08 Dose: 1 each Nicotine (Nicotine 21 Mg/24 Hr Tdsy) 21 mg TD QAM [facility] Stop: 12/10/21 05:49 Last Admin: 11/12/21 08:07 Dose: 21 mg Nitroglycerin (Nitroglycerin Sl 0.4 Mg/Tab Tab) 0.4 mg SL UD PRN PRN Reason: Chest Pain Stop: 12/10/21 01:56 Last Admin: 11/11/21 18:00 Dose: 0.4 mg Paroxetine HCl (Paroxetine Hcl 20 Mg Tab) 60 mg PO HS [facility] Stop: 12/10/21 20:59 Last Admin: 11/11/21 20:24 Dose: 60 mg Prednisone (Prednisone 20 Mg Tab) 40 mg PO DAILY [facility] Stop: 12/12/21 08:59 Last Admin: 11/12/21 08:06 Dose: 40 mg Rosuvastatin Calcium (Rosuvastatin Calcium 20 Mg Tab) 40 mg PO HS [facility] Stop: 12/10/21 20:59 Last Admin: 11/11/21 20:24 Dose: 40 mg Sumatriptan Succinate (Sumatriptan Succinate 100 Mg Tab) 100 mg PO DAILY PRN PRN Reason: Migraine Headache Stop: 12/10/21 01:56 Last Admin: 11/10/21 23:36 Dose: 100 mg Umeclidinium [place] (Umeclidinium [place] 62.5mcg/Blister 7 Puffs/Inhaler) 1 puffs INH DAILY [facility] Stop: 12/10/21 08:59 Last Admin: 11/12/21 08:08 Dose: 1 puffs (1) CAD (coronary artery disease) Coronary Disease-Associated Artery/Lesion type: [place] artery [place] vs. transplanted heart: [place] heart Associated angina: without angina Qualified Code(s): I25.10 - Atherosclerotic heart disease of [place] coronary artery witho ut angina pectoris (2) Hypertension Hypertension type: essential hypertension Qualified Code(s): I10 - Essential (primary) hypertension
[2021-11-12] MEDS: ROSUVASTATIN CALCIUM 20 MG TAB PO SCH (21:23)
[2021-11-12] MEDS: ALPRAZolam 0.5 MG TABLET PO SCH (21:23)
[2021-11-12] MEDS: PARoxetine HCL 20 MG TAB PO SCH (21:24)
[2021-11-12] MEDS: CYANOCOBALAMIN (B-12) 500 MCG TABLET PO SCH (21:24)
--- NOTE | 2021-11-12 22:21 | Electrocardiogram Report ---
Test Reason : Blood Pressure : / mmHG Vent. Rate : 088 BPM Atrial Rate : 088 BPM P-R Int : 158 ms QRS Dur : 092 ms QT Int : 342 ms P-R-T Axes : 054 -14 100 degrees QTc Int : 413 ms Normal sinus rhythm with sinus arrhythmia Nonspecific T wave abnormality Abnormal ECG When compared with ECG of 11-NOV-2021 04:44, T wave inversion less evident in Anterolateral leads Confirmed by Farhat Vazquez ([id number]) on 11/12/2021 10:20:58 PM Referred By: REFERRED SELF Confirmed By:Farhat Vazquez
--- NOTE | 2021-11-12 22:53 | Electrocardiogram Report ---
Test Reason : Blood Pressure : / mmHG Vent. Rate : 066 BPM Atrial Rate : 066 BPM P-R Int : 154 ms QRS Dur : 098 ms QT Int : 416 ms P-R-T Axes : 051 -01 134 degrees QTc Int : 436 ms Sinus rhythm with marked sinus arrhythmia T wave abnormality, consider anterior ischemia Abnormal ECG When compared with ECG of 11-NOV-2021 17:39, Inverted T waves have replaced nonspecific T wave abnormality in Anterior leads Confirmed by Farhat Vazquez ([id number]) on 11/12/2021 10:53:08 PM Referred By: REFERRED SELF Confirmed By:Farhat Vazquez
[2021-11-12] MEDS: SUMAtriptan succinate 100 MG TAB PO PRN (23:44)
[2021-11-13] MEDS: LEVALBUTEROL 1.25MG/0.5ML NEB INH SCH ×4 (00:07→19:27)
[2021-11-13] MEDS: IPRATROPIUM BROMIDE NEB SOLN 0.02% 2.5 ML VIAL INH SCH ×4 (00:08→19:27)
[2021-11-13] MEDS: ACETAMINOPHEN 325 MG TAB PO PRN ×3 (05:05→21:56)
--- NOTE | 2021-11-13 07:19 | Electrocardiogram Report ---
Test Reason : Blood Pressure : / mmHG Vent. Rate : 052 BPM Atrial Rate : 052 BPM P-R Int : 152 ms QRS Dur : 100 ms QT Int : 456 ms P-R-T Axes : 048 -02 167 degrees QTc Int : 424 ms Sinus bradycardia with marked sinus arrhythmia Abnormal ECG When compared with ECG of 11-NOV-2021 20:04, No significant change was found Confirmed by Farhat Vazquez ([id number]) on 11/13/2021 7:18:57 AM Referred By: REFERRED SELF Confirmed By:Farhat Vazquez
[2021-11-13 07:33] LABS: BUN Creatinine Ratio 35.5 (10-20); Calcium 8.4 mg/dl (8.5-10.1); Creatinine Clr Calc Pharmacy 79.9 ml/min; Est GFR (African American) 88.9 ml/min; Est GFR (Non-African American) 76.7 ml/min; Magnesium 2.2 mg/dl (1.7-2.4); Potassium 3.6 mmol/L (3.5-5.1)
[2021-11-13] MEDS: predniSONE 20 MG TAB PO SCH (08:07)
[2021-11-13] MEDS: ASPIRIN 81 MG ECTAB PO SCH (08:07)
[2021-11-13] MEDS: NICOTINE 21 MG/24 HR TDSY TD SCH (08:07)
[2021-11-13] MEDS: DOXYCYCLINE HYCLATE 100 MG CAP PO SCH ×2 (08:07→20:04)
[2021-11-13] MEDS: ASCORBIC ACID 500 MG TAB PO SCH (08:07)
[2021-11-13] MEDS: lisinopril 20 MG TAB PO SCH (08:08)
[2021-11-13] MEDS: UMECLIDINIUM BROMIDE 62.5MCG/BLISTER 7 PUFFS/INHALER INH SCH (08:08)
[2021-11-13] MEDS: amLODIPine BESYLATE 5 MG TAB PO SCH (08:08)
[2021-11-13] MEDS: carvediloL 3.125 MG TAB PO SCH ×2 (08:08→20:05)
[2021-11-13] MEDS: ISOSORBIDE MONO EXTENDED REL 60 MG TABCR PO SCH (09:55)
[2021-11-13] MEDS: ENOXAPARIN INJ 40 MG/0.4 ML SYR SQ SCH ×2 (11:57→23:23)
--- NOTE | 2021-11-13 12:45 | Cardiology Progress Note ---
Date of Service November 13, 2021 Assessment & Plan (1) Acute exacerbation of chronic obstructive pulmonary disease (COPD): (2) Hypertensive urgency: (3) Chest pain at rest: (4) Abnormal EKG: (5) ASCVD (arteriosclerotic cardiovascular disease): (6) Dyslipidemia, goal LDL below 70: Plan COPD exacerbation. As per Hospitalist. Tobacco cessation recommended. Hypertension, hypertensive heart disease, hypertensive urgency. Blood pressures have improved from a high of 216/123 on presentation to 150/73 this morning, following titration of lisinopril to 20 mg/day, the addition of carvedilol 3.125 mg BID, and the addition of amlodipine 5 mg/day. Continue as prescribed for now. Atypical chest pain, at rest. Abnormal EKG, more pronounced anterolateral ST-T wave abnormality; results similar to prior through the years. High sensitivity Troponin I negative. Resting echocardiography with normal wall motion, normal left ventricular systolic function. Continue aspirin, high intensity statin therapy, as needed sublingual nitroglycerin, low dose beta-micky therapy, and calcium channel micky therapy as above. Recommend pharmacological stress testing once blood pressure is appropriately controlled and patient is over the acute COPD exacerbation, as an outpatient. Dyslipidemia. Continue high intensity statin therapy, rosuvastatin 40 mg/day. Recommend targeting an optimal LDL cholesterol goal of less than 70 mg/dL Atrial flutter. 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 11/12/2021 Slowly improving as blood pressure improves. Episode of chest discomfort last night and persistent throughout the night not aided by sublingual nitroglycerin, relieved with morphine. Troponins elevated but flat no acute EKG changes. Patient has a history of known single-vessel branch coronary artery disease by cardiac catheterization 2019 suspect exacerbation of symptoms in association with hypertensive urgency and acute pulmonary complaints We will discontinue IV heparin Add oral isosorbide mononitrate at 60 mg/day to above regimen. No further room to titrate carvedilol given resting bradycardia. Continue lisinopril and amlodipine Taper corticosteroids when able 11/13/2021 Slowly improving today blood pressure trending towards better control no chest pain discomfort this morning. Recommend continuing multiple drug regimen expect several days before full combination and therapy efficacy Recommend stress nuclear imaging post hospital discharge Admission and Anticipated Discharge Date Admission Date: November 09, 2021 Subjective Patient seen and examined, chart, medications, telemetry reviewed. Patient awakened from sleep. No current complaints of chest pain or discomfort. Blood pressure trending towards better control with multiple new medications initiated Review of Systems Review of Systems: All systems reviewed & are unremarkable except as noted in Subjective Physical Exam Physical Exam: General: A&Ox3. NAD. Elevated BMI HENT: Normocephalic. Atraumatic. Eyes: PER. Conjunctiva pink, sclera clear. Neck: No JVD. No HJR. Heart: Regular at 72 bpm. Distant heart sounds. No murmur appreciated. No rub. Lungs: Diminished. Decreased. Poor air exchange. Diffuse expiratory wheezing heard throughout. Abdomen: +BS. Soft. Nontender. No masses or organomegaly. Extremities: No clubbing, cyanosis, or edema. Limited neurological examination is without focal deficits. Pulses: radial=2/4, posterior tibial=1/4. Results & Data ([facility]) Vital Signs (Past 12 Hours) Vital Signs Temp Pulse Pulse Resp BP Pulse Ox Pulse Ox 11/13/21 11:45 37.3 C 74 18 162/93 H 91 11/13/21 11:52 91 11/13/21 07:40 36.7 C 53 L 20 136/73 95 11/13/21 07:58 11/13/21 07:39 71 18 95 11/13/21 03:20 36.6 C 58 L 16 161/84 H 94 Pulse Ox O2 Del Method O2 Flow Rate O2 Flow Rate O2 Flow Rate 11/13/21 11:45 11/13/21 11:52 83 L 2 0 11/13/21 07:40 Nasal Cannula 2 11/13/21 07:58 Nasal Cannula 2 11/13/21 07:39 Nasal Cannula 2 11/13/21 03:20 Nasal Cannula 2 Laboratory Results Laboratory Results - last 24 hr 11/13/21 06:44 Sodium 140 Potassium 3.6 Chloride 104 Carbon Dioxide 32 Anion Gap 4 BUN 27 H Creatinine 0.76 Est Cr Clr Drug Dosing 79.9 Est GFR ( Amer) 88.9 Est GFR (Non-Af Amer) 76.7 BUN/Creatinine Ratio 35.5 H Glucose 133 H Calcium 8.4 L Magnesium 2.2
--- NOTE | 2021-11-13 13:26 | Hospitalist Progress Note ---
Date of Service November 13, 2021 Assessment & Plan (1) Acute exacerbation of chronic obstructive pulmonary disease (COPD): Plan: Admitted with increasing shortness of breath noted to have wheezing all over Chest x-ray did not show pneumonia She was started with intravenous Solu-Medrol and nebulized bronchodilator and IV doxycycline Clinically improving Will change the Solu-Medrol to oral prednisone from tomorrow We will get PT and OT evaluation and possible discharge in a day or 2 Likely discharge tomorrow (2) Chest pain at rest: Plan: Complaint to have nonspecific chest pain Has significant cardiac disease including CAD and history of atrial flutter Serial troponins have been negative for any ACS Appreciate cardiology input and recommendation Echo of the heart showed EF of 60 to 65%, there is mild concentric LVH, grade 1 diastolic dysfunction, RV size is normal, RV systolic function is qualitatively normal and no significant valvular pathology No more chest pain and no ACS Pharmacological stress test as an outpatient Significant chest in the evening of 11/11/2021 Did not relieve with sublingual nitro x2 but later on relieved with intravenous morphine of 4 mg Initial EKG was unremarkable and troponin noted to be elevated at 130s She was started with intravenous heparin by the night doctor Subsequent troponin came out to be negative and EKG did not show any change Elevation of troponin likely secondary to a stress induced cardiac ischemia secondary to high blood pressure Heparin discontinued Appreciate cardiology recommendation of adding isosorbide mononitrate Denies any more chest pain (3) Hypertensive urgency: Plan: Noted to have very high blood pressure on admission Remained hypertensive at 211/119 Lisinopril dose has been increased to 20 mg from 10 mg and Amlodipine 5 mg and carvedilol were added this morning We will continue with as needed intravenous labetalol Blood pressure is well controlled-occasionally blood pressure is going as high as 162/93 (4) CAD (coronary artery disease): (5) Atrial flutter: Plan: Heart rate remains elevated at 100 Denies any chest pain and/or palpitation (6) Hypertension: Plan: As above (7) Depression: Plan: Has history of anxiety and depression We will continue current medications including Xanax (8) Dyslipidemia, goal LDL below 70: Plan: Continue statin Admission and Anticipated Discharge Date Admission Date: November 09, 2021 Subjective 11/10/2021 The patient was seen and examined in telemetry unit She has been complaining of headache, nausea without vomiting and generalized discomfort due to anxiety Denies any chest pain and/or palpitation Her shortness of breath is better 11/11/2021 The patient was seen and examined in telemetry unit She has been feeling much better but complains to have severe attacks of migraine for that she has to take Imitrex Her blood pressure seems to be stable Her breathing is much better 11/12/2021 The patient was seen and examined in telemetry unit Still complains some precordial pain Denies any other symptoms No shortness of breath, wheezing, nausea and or vomiting 11/13/2021 The patient was seen and examined in telemetry unit She remained stable and denies any more precordial pain Denies any shortness of breath or palpitation at rest We will get PT and OT evaluation and to a step O2 saturation prior to discharge tomorrow Review of Systems Review of Systems: All systems reviewed and are unremarkable except as noted below Respiratory: Minimal shortness of breath at rest Neurologic: Migraine headache Psychiatric: Generalized anxiety Physical Exam Physical Exam: Lying in bed without any acute distress Constitutional: well developed, well nourished, + ill appearing and + obese Eyes: PERRL, conjunctivae normal, anicteric sclerae ENMT: external ear and nose normal, oropharynx normal Neck: trachea midline, no thyromegaly Respiratory: no respiratory distress Auscultation: + diminished lung sounds, + crackles (Bibasilar) and + wheezes (Minimal wheezing all over) Cardiovascular: Rate/Rhythm: regular rate and regular rhythm; not tachycardic Heart Sounds: normal S1 and normal S2; no murmur Extremities: + edema (Trace edema bilaterally) Gastrointestinal (Abdomen): Inspection/Auscultation: normal bowel sounds; abdomen not distended Percussion/Palpation: abdomen soft; abdomen nontender Musculoskeletal: No acute arthritis in any joint Neurologic: normal touch/pain/proprioception and moves all extremities; no focal motor deficits and not confused Lymphatic: no cervical or axillary lymphadenopathy Results & Data Results & [facility] ([facility]) Vital Signs (Past 12 Hours) Vital Signs Temp Pulse Pulse Resp BP Pulse Ox Pulse Ox 11/13/21 13:20 70 20 96 11/13/21 11:45 37.3 C 74 18 162/93 H 91 11/13/21 11:52 91 11/13/21 07:40 36.7 C 53 L 20 136/73 95 11/13/21 07:58 11/13/21 07:39 71 18 95 11/13/21 03:20 36.6 C 58 L 16 161/84 H 94 Pulse Ox O2 Del Method O2 Flow Rate O2 Flow Rate O2 Flow Rate 11/13/21 13:20 Nasal Cannula 2 11/13/21 11:45 11/13/21 11:52 83 L 2 0 11/13/21 07:40 Nasal Cannula 2 11/13/21 07:58 Nasal Cannula 2 11/13/21 07:39 Nasal Cannula 2 11/13/21 03:20 Nasal Cannula 2 Laboratory Results BMP 11/13/21 06:44 Sodium 140 Potassium 3.6 Chloride 104 Carbon Dioxide 32 BUN 27 H Creatinine 0.76 Glucose 133 H Calcium 8.4 L Medications Administered Current Inpatient Medications Acetaminophen (Acetaminophen 325 Mg Tab) 650 mg PO Q4H PRN PRN Reason: Pain or Fever Stop: 12/10/21 01:56 Last Admin: 11/13/21 05:05 Dose: 650 mg Albuterol (Albuterol Hfa 8 Gm Inhaler) 2 puffs INH Q6H PRN PRN Reason: SHORT OF BREATH Stop: 12/10/21 01:56 Alprazolam (Alprazolam 0.5 Mg Tablet) 1 mg PO HS [facility] Stop: 12/10/21 20:59 Last Admin: 11/12/21 21:23 Dose: 1 mg Amlodipine Besylate (Amlodipine Besylate 5 Mg Tab) 5 mg PO QAM [facility] Stop: 12/10/21 10:29 Last Admin: 11/13/21 08:08 Dose: 5 mg Ascorbic Acid (Ascorbic Acid 500 Mg Tab) 500 mg PO DAILY [facility] Stop: 12/10/21 08:59 Last Admin: 11/13/21 08:07 Dose: 500 mg Aspirin (Aspirin 81 Mg Ectab) 81 mg PO DAILY [facility] Stop: 12/10/21 08:59 Last Admin: 11/13/21 08:07 Dose: 81 mg Benzonatate (Benzonatate 100 Mg Capsule) 100 mg PO TID PRN PRN Reason: cough Stop: 12/10/21 01:56 Last Admin: 11/11/21 12:26 Dose: 100 mg Carvedilol (Carvedilol 3.125 Mg Tab) 3.125 mg PO BID [facility] Stop: 12/10/21 10:29 Last Admin: 11/13/21 08:08 Dose: 3.125 mg Cyanocobalamin (Cyanocobalamin (B-12) 500 Mcg Tablet) 1,000 mcg PO HS [facility] Stop: 12/10/21 20:59 Last Admin: 11/12/21 21:24 Dose: 1,000 mcg Doxycycline Hyclate (Doxycycline Hyclate 100 Mg Cap) 100 mg PO BID [facility] Stop: 11/17/21 08:59 Last Admin: 11/13/21 08:07 Dose: 100 mg Enoxaparin Sodium (Enoxaparin Inj 40 Mg/0.4 Ml Syr) 40 mg SQ Q12H [facility] Stop: 12/12/21 11:59 Last Admin: 11/13/21 11:57 Dose: 40 mg Ipratropium [place] (Ipratropium [place] Neb Soln 0.02% 2.5 Ml Vial) 0.5 mg INH Q6R [facility] Stop: 12/10/21 01:56 Last Admin: 11/13/21 13:19 Dose: 0.5 mg Isosorbide Mononitrate (Isosorbide [place] Extended Rel 60 Mg Tabcr) 60 mg PO QAM [facility] Stop: 12/12/21 11:59 Last Admin: 11/13/21 09:55 Dose: 60 mg Labetalol HCl (Labetalol Hcl Iv 5 Mg/Ml 20ml) 10 mg IV Q4H PRN PRN Reason: Hypertension Stop: 12/10/21 01:56 Last Admin: 11/11/21 18:00 Dose: 10 mg Levalbuterol HCl (Levalbuterol 1.25mg/0.5ml Neb) 1.25 mg INH Q6R [facility] Stop: 12/10/21 01:56 Last Admin: 11/13/21 13:19 Dose: 1.25 mg Levalbuterol HCl (Levalbuterol Hcl 1.25 Mg/3 Ml Neb) 1.25 mg NEB Q4H PRN; Protocol PRN Reason: Shortness Of Breath Or Wheezing Stop: 12/10/21 01:56 Lisinopril (Lisinopril 20 Mg Tab) 20 mg PO DAILY [facility] Stop: 12/10/21 08:59 Last Admin: 11/13/21 08:08 Dose: 20 mg Miscellaneous (Remove Nicoderm Patch) 1 each N/A DAILY@0859 [facility] Stop: 12/11/21 08:58 Last Admin: 11/13/21 08:08 Dose: 1 each Nicotine (Nicotine 21 Mg/24 Hr Tdsy) 21 mg TD QAM [facility] Stop: 12/10/21 05:49 Last Admin: 11/13/21 08:07 Dose: 21 mg Nitroglycerin (Nitroglycerin Sl 0.4 Mg/Tab Tab) 0.4 mg SL UD PRN PRN Reason: Chest Pain Stop: 12/10/21 01:56 Last Admin: 11/11/21 18:00 Dose: 0.4 mg Paroxetine HCl (Paroxetine Hcl 20 Mg Tab) 60 mg PO HS [facility] Stop: 12/10/21 20:59 Last Admin: 11/12/21 21:24 Dose: 60 mg Prednisone (Prednisone 20 Mg Tab) 40 mg PO DAILY [facility] Stop: 12/12/21 08:59 Last Admin: 11/13/21 08:07 Dose: 40 mg Rosuvastatin Calcium (Rosuvastatin Calcium 20 Mg Tab) 40 mg PO HS [facility] Stop: 12/10/21 20:59 Last Admin: 11/12/21 21:23 Dose: 40 mg Sumatriptan Succinate (Sumatriptan Succinate 100 Mg Tab) 100 mg PO DAILY PRN PRN Reason: Migraine Headache Stop: 12/10/21 01:56 Last Admin: 11/12/21 23:44 Dose: 100 mg Umeclidinium [place] (Umeclidinium [place] 62.5mcg/Blister 7 Puffs/Inhaler) 1 puffs INH DAILY [facility] Stop: 12/10/21 08:59 Last Admin: 11/13/21 08:08 Dose: 1 puffs (1) CAD (coronary artery disease) Coronary Disease-Associated Artery/Lesion type: [place] artery [place] vs. transplanted heart: [place] heart Associated angina: without angina Qualified Code(s): I25.10 - Atherosclerotic heart disease of [place] coronary artery without angina pectoris (2) Hypertension Hypertension type: essential hypertension Qualified Code(s): I10 - Essential (primary) hypertension
[2021-11-13] MEDS: CYANOCOBALAMIN (B-12) 500 MCG TABLET PO SCH (20:05)
[2021-11-13] MEDS: ROSUVASTATIN CALCIUM 20 MG TAB PO SCH (20:05)
[2021-11-13] MEDS: PARoxetine HCL 20 MG TAB PO SCH (20:05)
[2021-11-13] MEDS: ALPRAZolam 0.5 MG TABLET PO SCH (21:56)
[2021-11-14] MEDS: IPRATROPIUM BROMIDE NEB SOLN 0.02% 2.5 ML VIAL INH SCH ×3 (00:06→12:58)
[2021-11-14] MEDS: LEVALBUTEROL 1.25MG/0.5ML NEB INH SCH ×3 (00:06→12:58)
[2021-11-14] MEDS: ASCORBIC ACID 500 MG TAB PO SCH (08:20)
[2021-11-14] MEDS: ASPIRIN 81 MG ECTAB PO SCH (08:20)
[2021-11-14] MEDS: lisinopril 20 MG TAB PO SCH (08:20)
[2021-11-14] MEDS: predniSONE 20 MG TAB PO SCH (08:21)
[2021-11-14] MEDS: NICOTINE 21 MG/24 HR TDSY TD SCH (08:21)
[2021-11-14] MEDS: carvediloL 3.125 MG TAB PO SCH (08:22)
[2021-11-14] MEDS: amLODIPine BESYLATE 5 MG TAB PO SCH (08:22)
[2021-11-14] MEDS: DOXYCYCLINE HYCLATE 100 MG CAP PO SCH (08:22)
[2021-11-14] MEDS: ISOSORBIDE MONO EXTENDED REL 60 MG TABCR PO SCH (08:22)
[2021-11-14] MEDS: UMECLIDINIUM BROMIDE 62.5MCG/BLISTER 7 PUFFS/INHALER INH SCH (08:23)
--- NOTE | 2021-11-14 13:06 | Hospitalist Progress Note ---
Date of Service November 14, 2021 Assessment & Plan (1) Acute exacerbation of chronic obstructive pulmonary disease (COPD): Plan: Admitted with increasing shortness of breath noted to have wheezing all over Chest x-ray did not show pneumonia She was started with intravenous Solu-Medrol and nebulized bronchodilator and IV doxycycline Clinically improving Will change the Solu-Medrol to oral prednisone from tomorrow We will get PT and OT evaluation and possible discharge in a day or 2 Has had PT evaluation and recommended home Remains stable without any shortness of breath at rest Two-step O2 saturation test recommended 3 L of oxygen with ambulation She will be discharged home this afternoon (2) Chest pain at rest: Plan: Complaint to have nonspecific chest pain Has significant cardiac disease including CAD and history of atrial flutter Serial troponins have been negative for any ACS Appreciate cardiology input and recommendation Echo of the heart showed EF of 60 to 65%, there is mild concentric LVH, grade 1 diastolic dysfunction, RV size is normal, RV systolic function is qualitatively normal and no significant valvular pathology No more chest pain and no ACS Pharmacological stress test as an outpatient Significant chest in the evening of 11/11/2021 Did not relieve with sublingual nitro x2 but later on relieved with intravenous morphine of 4 mg Initial EKG was unremarkable and troponin noted to be elevated at 130s She was started with intravenous heparin by the night doctor Subsequent troponin came out to be negative and EKG did not show any change Elevation of troponin likely secondary to a stress induced cardiac ischemia secondary to high blood pressure Heparin discontinued Appreciate cardiology recommendation of adding isosorbide mononitrate Denies any more chest pain Remained stable (3) Hypertensive urgency: Plan: Noted to have very high blood pressure on admission Remained hypertensive at 211/119 Lisinopril dose has been increased to 20 mg from 10 mg and Amlodipine 5 mg and carvedilol were added this morning We will continue with as needed intravenous labetalol Blood pressure is well controlled-occasionally blood pressure is going as high as 162/93 Blood pressure remains controlled with current medication (4) CAD (coronary artery disease): (5) Atrial flutter: Plan: Heart rate remains elevated at 100 Denies any chest pain and/or palpitation (6) Hypertension: Plan: As above (7) Depression: Plan: Has history of anxiety and depression We will continue current medications including Xanax (8) Dyslipidemia, goal LDL below 70: Plan: Continue statin Admission and Anticipated Discharge Date Admission Date: November 09, 2021 Subjective 11/10/2021 The patient was seen and examined in telemetry unit She has been complaining of headache, nausea without vomiting and generalized discomfort due to anxiety Denies any chest pain and/or palpitation Her shortness of breath is better 11/11/2021 The patient was seen and examined in telemetry unit She has been feeling much better but complains to have severe attacks of migraine for that she has to take Imitrex Her blood pressure seems to be stable Her breathing is much better 11/12/2021 The patient was seen and examined in telemetry unit Still complains some precordial pain Denies any other symptoms No shortness of breath, wheezing, nausea and or vomiting 11/13/2021 The patient was seen and examined in telemetry unit She remained stable and denies any more precordial pain Denies any shortness of breath or palpitation at rest We will get PT and OT evaluation and to a step O2 saturation prior to discharge tomorrow 11/14/2021 The patient was seen and examined in telemetry unit She has been feeling much better and denies any significant symptoms No more chest pain and or wheezing at rest She has had 2 step O2 saturation test and she will need 3 L with ambulation Review of Systems Review of Systems: All systems reviewed and are unremarkable except as noted below Respiratory: Minimal shortness of breath at rest Neurologic: Migraine headache Psychiatric: Generalized anxiety Physical Exam Physical Exam: Lying in bed without any acute distress Constitutional: well developed, well nourished and + obese; not ill appearing Eyes: PERRL, conjunctivae normal, anicteric sclerae ENMT: external ear and nose normal, oropharynx normal Neck: trachea midline, no thyromegaly Respiratory: no respiratory distress Auscultation: + diminished lung sounds, + crackles (Bibasilar) and + wheezes (Minimal wheezing all over) Cardiovascular: Rate/Rhythm: regular rate and regular rhythm; not tachycardic Heart Sounds: normal S1 and normal S2; no murmur Extremities: + edema (Trace edema bilaterally) Gastrointestinal (Abdomen): Inspection/Auscultation: normal bowel sounds; abdomen not distended Percussion/Palpation: abdomen soft; abdomen nontender Musculoskeletal: No acute arthritis in any joint Neurologic: normal touch/pain/proprioception and moves all extremities; no focal motor deficits and not confused Psychiatric: A+Ox3, euthymic affect Lymphatic: no cervical or axillary lymphadenopathy Results & Data Results & Data ([facility]) Vital Signs (Past 12 Hours) Vital Signs Temp Pulse Pulse Pulse Pulse Pulse Pulse 11/14/21 12:58 81 11/14/21 12:25 37.0 C 66 11/14/21 08:00 11/14/21 10:36 11/14/21 08:52 81 73 73 75 11/14/21 08:04 37.1 C 63 11/14/21 07:03 84 11/14/21 04:00 36.8 C 55 L Pulse Resp Resp Resp Resp Resp Resp 11/14/21 12:58 18 11/14/21 12:25 20 11/14/21 08:00 11/14/21 10:36 11/14/21 08:52 68 19 19 19 18 18 11/14/21 08:04 20 11/14/21 07:03 18 11/14/21 04:00 16 BP BP Pulse Ox Pulse Ox Pulse Ox Pulse Ox Pulse Ox 11/14/21 12:58 94 11/14/21 12:25 146/74 H 90 11/14/21 08:00 11/14/21 10:36 11/14/21 08:52 86 L 92 86 L 94 11/14/21 08:04 175/94 H 94 11/14/21 07:03 92 11/14/21 04:00 167/90 H 95 Pulse Ox O2 Del Method O2 Del Method O2 Flow Rate O2 Flow Rate O2 Flow Rate 11/14/21 12:58 Nasal Cannula 2 11/14/21 12:25 Nasal Cannula 3.5 11/14/21 08:00 Nasal Cannula 11/14/21 10:36 Nasal Cannula 3 11/14/21 08:52 92 2 3 11/14/21 08:04 Nasal Cannula 4 11/14/21 07:03 Nasal Cannula 2 11/14/21 04:00 Room Air Medications Administered Current Inpatient Medications Acetaminophen (Acetaminophen 325 Mg Tab) 650 mg PO Q4H PRN PRN Reason: Pain or Fever Stop: 12/10/21 01:56 Last Admin: 11/13/21 21:56 Dose: 650 mg Albuterol (Albuterol Hfa 8 Gm Inhaler) 2 puffs INH Q6H PRN PRN Reason: SHORT OF BREATH Stop: 12/10/21 01:56 Alprazolam (Alprazolam 0.5 Mg Tablet) 1 mg PO HS [facility] Stop: 12/10/21 20:59 Last Admin: 11/13/21 21:56 Dose: 1 mg Amlodipine Besylate (Amlodipine Besylate 5 Mg Tab) 5 mg PO QAM [facility] Stop: 12/10/21 10:29 Last Admin: 11/14/21 08:22 Dose: 5 mg Ascorbic Acid (Ascorbic Acid 500 Mg Tab) 500 mg PO DAILY [facility] Stop: 12/10/21 08:59 Last Admin: 11/14/21 08:20 Dose: 500 mg Aspirin (Aspirin 81 Mg Ectab) 81 mg PO DAILY [facility] Stop: 12/10/21 08:59 Last Admin: 11/14/21 08:20 Dose: 81 mg Benzonatate (Benzonatate 100 Mg Capsule) 100 mg PO TID PRN PRN Reason: cough Stop: 12/10/21 01:56 Last Admin: 11/11/21 12:26 Dose: 100 mg Carvedilol (Carvedilol 3.125 Mg Tab) 3.125 mg PO BID [facility] Stop: 12/10/21 10:29 Last Admin: 11/14/21 08:22 Dose: 3.125 mg Cyanocobalamin (Cyanocobalamin (B-12) 500 Mcg Tablet) 1,000 mcg PO HS [facility] Stop: 12/10/21 20:59 Last Admin: 11/13/21 20:05 Dose: 1,000 mcg Doxycycline Hyclate (Doxycycline Hyclate 100 Mg Cap) 100 mg PO BID [facility] Stop: 11/17/21 08:59 Last Admin: 11/14/21 08:22 Dose: 100 mg Enoxaparin Sodium (Enoxaparin Inj 40 Mg/0.4 Ml Syr) 40 mg SQ Q12H [facility] Stop: 12/12/21 11:59 Last Admin: 11/13/21 23:23 Dose: 40 mg Ipratropium [place] (Ipratropium [place] Neb Soln 0.02% 2.5 Ml Vial) 0.5 mg INH Q6R [facility] Stop: 12/10/21 01:56 Last Admin: 11/14/21 12:58 Dose: 0.5 mg Isosorbide Mononitrate (Isosorbide [place] Extended Rel 60 Mg Tabcr) 60 mg PO QAM [facility] Stop: 12/12/21 11:59 Last Admin: 11/14/21 08:22 Dose: 60 mg Labetalol HCl (Labetalol Hcl Iv 5 Mg/Ml 20ml) 10 mg IV Q4H PRN PRN Reason: Hypertension Stop: 12/10/21 01:56 Last Admin: 11/11/21 18:00 Dose: 10 mg Levalbuterol HCl (Levalbuterol 1.25mg/0.5ml Neb) 1.25 mg INH Q6R [facility] Stop: 12/10/21 01:56 Last Admin: 11/14/21 12:58 Dose: 1.25 mg Levalbuterol HCl (Levalbuterol Hcl 1.25 Mg/3 Ml Neb) 1.25 mg NEB Q4H PRN; Protocol PRN Reason: Shortness Of Breath Or Wheezing Stop: 12/10/21 01:56 Lisinopril (Lisinopril 20 Mg Tab) 20 mg PO DAILY [facility] Stop: 12/10/21 08:59 Last Admin: 11/14/21 08:20 Dose: 20 mg Miscellaneous (Remove Nicoderm Patch) 1 each N/A DAILY@0859 [facility] Stop: 12/11/21 08:58 Last Admin: 11/14/21 08:22 Dose: 1 each Nicotine (Nicotine 21 Mg/24 Hr Tdsy) 21 mg TD QAM [facility] Stop: 12/10/21 05:49 Last Admin: 11/14/21 08:21 Dose: 21 mg Nitroglycerin (Nitroglycerin Sl 0.4 Mg/Tab Tab) 0.4 mg SL UD PRN PRN Reason: Chest Pain Stop: 12/10/21 01:56 Last Admin: 11/11/21 18:00 Dose: 0.4 mg Paroxetine HCl (Paroxetine Hcl 20 Mg Tab) 60 mg PO HS [facility] Stop: 12/10/21 20:59 Last Admin: 11/13/21 20:05 Dose: 60 mg Prednisone (Prednisone 20 Mg Tab) 40 mg PO DAILY [facility] Stop: 12/12/21 08:59 Last Admin: 11/14/21 08:21 Dose: 40 mg Rosuvastatin Calcium (Rosuvastatin Calcium 20 Mg Tab) 40 mg PO HS [facility] Stop: 12/10/21 20:59 Last Admin: 11/13/21 20:05 Dose: 40 mg Sumatriptan Succinate (Sumatriptan Succinate 100 Mg Tab) 100 mg PO DAILY PRN PRN Reason: Migraine Headache Stop: 12/10/21 01:56 Last Admin: 11/12/21 23:44 Dose: 100 mg Umeclidinium [place] (Umeclidinium [place] 62.5mcg/Blister 7 Puffs/Inhaler) 1 puffs INH DAILY [facility] Stop: 12/10/21 08:59 Last Admin: 11/14/21 08:23 Dose: 1 puffs (1) CAD (coronary artery disease) Coronary Disease-Associated Artery/Lesion type: [place] artery [place] vs. transplanted heart: [place] heart Associated angina: without angina Qualified Code(s): I25.10 - Atherosclerotic heart disease of [place] coronary artery without angina pectoris (2) Hypertension Hypertension type: essential hypertension Qualified Code(s): I10 - Essential (primary) hypertension
--- NOTE | 2021-11-15 08:23 | Discharge Summary ---
Date of Service November 15, 2021 Admission HPI Per Admitting Provider DICTATED BY:Bjorn Jeffery MD DATE OF ADMISSION: 11/09/2021. CHIEF COMPLAINT: Chest pain and shortness of breath. HISTORY OF PRESENT ILLNESS: A 75-year-old female with past medical history significant for prediabetes, hyperlipidemia, COPD, hypertension, history of CAD, history of migraine, spastic dysphonia, depression, delusional disorder, ongoing tobacco abuse, anxiety, history of mild sleep apnea, uses oxygen in the nighttime, history of atrial flutter, status post ablation, history of non-ST elevated MA, presents with shortness of breath going on for last 1 week with cough and also with chest pain going on for last 1 week. Chest pain is mostly mild, but once in a while it gets severe. When she came in, chest pain was 6/10 in severity, and currently it is resolved. She is also having some cough. Denies any fevers. Feeling dizzy. She had migraine headaches a couple of times last week, which is unusual for her. Denies any blurred visions. Has some postnasal drip, has some sore throat, no difficulty swallowing. No nausea, no abdominal pain. Normal bowel and bladder movements. Ambulating okay with a cane. Lives alone. She is still smoking. Admission Exam Per Admitting Provider GENERAL: The patient is obese, not in acute distress. VITAL SIGNS: Temperature 36.8, pulse 73, respiratory rate 20, blood pressure 202/104, oxygen 97% on room air. HEENT: Pupils equal, round and reactive to light. Oral mucosa moist. NECK: No JVD. No neck masses. CARDIOVASCULAR: S1 and S2 heard. Regular rate and rhythm. No murmur, no gallop. RESPIRATORY SYSTEM: Normal AP diameter. No accessory muscle use. Mild bilateral wheezing and mild rhonchi. ABDOMEN: Soft, bowel sounds present, nontender, no distention. CENTRAL NERVOUS SYSTEM: Cranial nerves II-XII grossly intact, nonfocal. EXTREMITIES: Mild pedal edema present, no erythema seen. Principal Diagnosis Acute exacerbation of COPD, chest pain-no ACS, hypertensive urgency, depression Discharge Exam Lying in bed without any acute distress Constitutional well developed, well nourished and + obese; not ill appearing Eyes PERRL, conjunctivae normal, anicteric sclerae ENMT external ear and nose normal, oropharynx normal Neck trachea midline, no thyromegaly Respiratory no respiratory distress Auscultation: + diminished lung sounds, + crackles (Bibasilar) and + wheezes (Minimal wheezing all over) Cardiovascular Rate/Rhythm: regular rate and regular rhythm; not tachycardic Heart Sounds: normal S1 and normal S2; no murmur Extremities: + edema (Trace edema bilaterally) Gastrointestinal (Abdomen) Inspection/Auscultation: normal bowel sounds; abdomen not distended Percussion/Palpation: abdomen soft; abdomen nontender Neurologic normal touch/pain/proprioception and moves all extremities; no focal motor deficits and not confused Psychiatric A+Ox3, euthymic affect Lymphatic no cervical or axillary lymphadenopathy Discharge Data Allergies Allergy/AdvReac Type Severity Reaction Status Date / Time No Known Allergies Allergy Verified 12/07/20 15:42 Consultations 11/09/21 21:56 ED Decision to Admit Stat 11/10/21 08:00 Consult Cardiology Routine Hospital Course (1) Acute exacerbation of chronic obstructive pulmonary disease (COPD): Admitted with increasing shortness of breath noted to have wheezing all over Chest x-ray did not show pneumonia She was started with intravenous Solu-Medrol and nebulized bronchodilator and IV doxycycline Clinically improving Will change the Solu-Medrol to oral prednisone from tomorrow We will get PT and OT evaluation and possible discharge in a day or 2 Has had PT evaluation and recommended home Remains stable without any shortness of breath at rest Two-step O2 saturation test recommended 3 L of oxygen with ambulation She will be discharged home this afternoon (2) Chest pain at rest: Complaint to have nonspecific chest pain Has significant cardiac disease including CAD and history of atrial flutter Serial troponins have been negative for any ACS Appreciate cardiology input and recommendation Echo of the heart showed EF of 60 to 65%, there is mild concentric LVH, grade 1 diastolic dysfunction, RV size is normal, RV systolic function is qualitatively normal and no significant valvular pathology No more chest pain and no ACS Pharmacological stress test as an outpatient Significant chest in the evening of 11/11/2021 Did not relieve with sublingual nitro x2 but later on relieved with intravenous morphine of 4 mg Initial EKG was unremarkable and troponin noted to be elevated at 130s She was started with intravenous heparin by the night doctor Subsequent troponin came out to be negative and EKG did not show any change Elevation of troponin likely secondary to a stress induced cardiac ischemia secondary to high blood pressure Heparin discontinued Appreciate cardiology recommendation of adding isosorbide mononitrate Denies any more chest pain Remained stable (3) Hypertensive urgency: Noted to have very high blood pressure on admission Remained hypertensive at 211/119 Lisinopril dose has been increased to 20 mg from 10 mg and Amlodipine 5 mg and carvedilol were added this morning We will continue with as needed intravenous labetalol Blood pressure is well controlled-occasionally blood pressure is going as high as 162/93 Blood pressure remains controlled with current medication (4) CAD (coronary artery disease): (5) Atrial flutter: Heart rate remains elevated at 100 Denies any chest pain and/or palpitation (6) Hypertension: As above (7) Depression: Has history of anxiety and depression We will continue current medications including Xanax (8) Dyslipidemia, goal LDL below 70: Continue statin Total Time Total Time Spent Total Time Spent (In Minutes): 35 minutes Discharge Plan Discharge Items Patient Disposition: Home - Home Health Services Reason For Visit: SOB/CHEST PAIN Discharge Diagnosis: Acute exacerbation of COPD, chest pain-no ACS, hypertensive urgency, depression Activity: Resume your previous activity Non-emergency contact: Primary Care Provider Call non-emergency contact if: you have any medication questions and your symptoms worsen Follow-up/Referrals: Merlin Barrios MD [Primary Care Provider] - (Date & Time 11/18/2021 3:00 PM Provider Merlin Barrios MD [facility] ) Diet: Heart Healthy and Low Sodium (2gm) Addtl Attending Provider Instructions: Please take precautions to avoid fall Please take your medications as advised Finish the course of antibiotic Please have follow-up appointment with your healthcare provider Pending Studies at Discharge: No Stand-Alone Forms: My [employer], Smoking Cessation Medications and DC Order Prescriptions: New doxycycline hyclate 100 mg Capsule 100 mg PO BID Qty: 10 0RF lisinopril 20 mg Tablet 20 mg PO DAILY Qty: 30 0RF nicotine [Nicoderm CQ] 21 mg/24 hr Patch 24 Hour 21 mg transdermal QAM 30 Days Qty: 30 0RF amlodipine [Norvasc] 5 mg Tablet 5 mg PO QAM Qty: 30 0RF carvedilol 3.125 mg Tablet 3.125 mg PO BID Qty: 60 0RF isosorbide mononitrate 60 mg Tablet Extended Release 24 Hr 60 mg PO QAM Qty: 30 0RF prednisone 10 mg tablet 10 mg PO UD Qty: 30 0RF Rx Instructions: 4 a day for 3 days, 3 a day for 3 days, 2 a day for 3 days and then 1 a day for 3 days Continued fluticasone propion-salmeterol [Advair Diskus] 100-50 mcg/dose blister with device 1 inh INHALATION BID Incruse Ellipta 62.5 mcg/actuation blister with device 1 inh INHALATION DAILY alprazolam 1 mg Tablet 1 mg PO HS Qty: 10 0RF ascorbic acid (vitamin C) [Vitamin C] 1,000 mg Tablet 500 mg PO DAILY paroxetine HCl 30 mg tablet 60 mg PO HS omega [id number]-fish oil [Fish Oil] 1,000 mg (120 mg-180 mg) Capsule 1 cap PO HS aspirin 81 mg Tablet,Delayed Release (Dr/Ec) 81 mg PO HS Caltrate 600 plus D 600 mg (1,500 mg)-800 unit Tablet,Chewable 1 tab PO BID sumatriptan succinate 100 mg Tablet 100 mg PO UD PRN (Reason: Migraine Headache) cyanocobalamin (vitamin B-12) 1,000 mcg Tablet 1,000 mcg PO HS nitroglycerin 0.4 mg Tablet, Sublingual 0.4 mg sublingual USEASDIRECTD PRN (Reason: Chest Pain) albuterol sulfate 90 mcg/actuation Hfa Aerosol Inhaler 2 puff INHALATION Q6H PRN (Reason: SHORT OF BREATH) rosuvastatin 40 mg tablet 40 mg PO HS tizanidine 4 mg Tablet 4 mg PO TID PRN (Reason: MUSCLE SPASMS) benzonatate [Tessalon Perles] 100 mg capsule 100 mg PO TID PRN (Reason: cough) Qty: 30 0RF Discontinued ibuprofen 200 mg Tablet 400 mg PO Q6H PRN (Reason: Pain) lisinopril 10 mg tablet 10 mg PO DAILY Discharge Orders: Discharge Order (Routine); Ordered 11/14/21 Ordered By: [place]a [place]/Other Patient Handouts: Prediabetes, 5 Steps for Eating Healthier Admission Data Admit Date/Time: 11/09/21 23:06 Attending Provider: Shagufta Frank Admit Provider: Bjorn Jeffery Primary Care Provider: Merlin Barrios Other Providers: Bjorn Jeffery ; Juan Boles ; Kb Prabhakar ; Modesto Mora ; Rob Merino ; Juan Haynes ; Merlin Hastings ; Marisabel Palma ; Latanya Wilson ; Liset Gaitan ; Nicanor Osborn Other Interventions: Discharge Summary Assessment (RN) Last Done: 11/14/21 13:34
== END 2021-11-14 16:30 | disposition home health service (06) | DRG 191 ==
LOC: ED 20:10 → 2S 23:06
DX: F17.210 Nicotine dependence, cigarettes, uncomplicated; I25.2 Old myocardial infarction; R07.89 Other chest pain; E78.5 Hyperlipidemia, unspecified; I25.10 Atherosclerotic heart disease of native coronary artery without angina pectoris; R94.31 Abnormal electrocardiogram [ECG] [EKG]; I10 Essential (primary) hypertension; J44.1 Chronic obstructive pulmonary disease with (acute) exacerbation; F32.A Depression, unspecified; R73.03 Prediabetes; I48.92 Unspecified atrial flutter; I16.0 Hypertensive urgency

== ENCOUNTER 2022-01-16 04:50 | Inpatient (IN) ==
[2022-01-16] MEDS ORDERED: MAGNESIUM SULFATE / D5W 1 GM/100 ML BAG IV STA (04:58)
[2022-01-16] MEDS ORDERED: ALBUT/IPRATROP 3MG/0.5MG NEB 3 ML VIAL NEB STA ×2 (04:58→06:17)
--- NOTE | 2022-01-16 05:14 | Emergency Department Note ---
History of Present Illness General Chief complaint: Shortness of Breath/Dyspnea Time Seen by Provider: 01/16/22 04:52 Source: patient and EMS Mode of arrival: EMS Limitations: no limitations History of Present Illness Provider complaint: Increased shortness of breath Onset (ago): day(s) Maximum Pain Intensity: 9 This is a 76-year-old female presents with increasing shortness of breath of the last several days. Patient does wear oxygen at home at night, not typically during the day. She does have a history of COPD and only recently quit smoking. Patient states she was admitted with a similar episode approximately a month ago. Patient states she does have MDI/nebulizer treatments at home which she has been using although she does not feel they are helping her as much. She states she has had increased cough, nasal congestion, rhinorrhea, sore throat, and is now developed bilateral rib pain from all of her coughing. She denies any change in the color of her sputum and denies any hemoptysis. She denies fevers and chills. Denies any known sick contacts. EMS gave patient additional nebulizer treatments as well as Solu-Medrol 125 mg in route. Home Medications Medication Instructions Recorded Confirmed Type ascorbic acid (vitamin C) 1,000 mg 500 mg PO DAILY 05/10/18 01/16/22 History tablet (Vitamin C) aspirin 81 mg tablet,delayed 81 mg PO HS 05/10/18 01/16/22 History release calcium carbonate 600 mg-vitamin 1 tab PO BID 05/10/18 01/16/22 History D3 20 mcg (800 unit) chewable tablet (Caltrate 600 plus D) omega 1-hdv-rtn-fish oil 1,000 mg 1 cap PO HS 05/10/18 01/16/22 History (120 mg-180 mg) capsule (Fish Oil) paroxetine HCl 30 mg tablet 60 mg PO DAILY 05/10/18 01/16/22 History albuterol sulfate 90 mcg/actuation 2 puff inhalation Q6H PRN SHORT OF 01/14/19 01/16/22 History aerosol inhaler BREATH cyanocobalamin (vitamin B-12) 1,000 mcg PO HS 01/14/19 01/16/22 History 1,000 mcg tablet nitroglycerin 0.4 mg sublingual 0.4 mg sublingual USEASDIRECTD PRN 01/14/19 01/16/22 History tablet Chest Pain sumatriptan succinate 100 mg tablet 100 mg PO UD PRN Migraine Headache 01/14/19 01/16/22 History rosuvastatin 40 mg tablet 40 mg PO HS 10/10/19 01/16/22 History fluticasone 100 mcg-salmeterol 50 1 inh inhalation BID 02/10/20 01/16/22 History mcg/dose blistr powdr for inhalation (Advair Diskus) umeclidinium 62.5 mcg/actuation 1 inh inhalation DAILY 02/10/20 01/16/22 History blister powder for inhalation (Incruse Ellipta) alprazolam 1 mg tablet 1 mg PO HS #10 tabs 02/18/20 01/16/22 Rx amlodipine 5 mg tablet (Norvasc) 5 mg PO QAM #30 tabs 11/14/21 01/16/22 Rx carvedilol 3.125 mg tablet 3.125 mg PO BID #60 tabs 11/14/21 01/16/22 Rx isosorbide mononitrate 60 mg 60 mg PO QAM #30 tabs 11/14/21 01/16/22 Rx tablet,extended release 24 hr lisinopril 20 mg tablet 20 mg PO DAILY #30 tabs 11/14/21 01/16/22 Rx Allergies Allergy/AdvReac Type Severity Reaction Status Date / Time No Known Allergies Allergy Verified 12/07/20 15:42 Past Med/Surg History Medical History Anxiety and depression Atrial flutter s/p ablation 05/2017. Follows with [facility] cardio. CAD (coronary artery disease) Nonobstructive by 2019 cardiac cath. NSTEMI ruled 2/2 coronary spasm. COPD (chronic obstructive pulmonary disease) 2.5 LPM VIA N/C ONLY AT HS. Advair daily, rarely using rescue inhaler, ~ 3x per month Continues to smoke 1ppd COVID-19 Degenerative disc disease Delusional disorder Hyperlipidemia Hypertension Migraines Myocardial Infarction NSTEMI 04/2018 [facility] NSTEMI (non-ST elevated myocardial infarction) On home oxygen therapy 2.5L AT HS Osteoarthritis Prediabetes Sleep apnea "MILD" ONLY WEARS O2 AT 2.5L AT HS Tear of lateral meniscus of right knee Tear of medial meniscus of right knee Tobacco abuse Surgical History History of breast biopsy History of cardiac cath 04/2018 for NSTEMI, Nonobstructive moderate proximal to mid LAD disease. History of cardiac radiofrequency ablation 2018 History of section X 2 History of colonoscopy History of dilatation and curettage History of discectomy LUMBAR History of eye surgery RT EYE (CAN'T REMEMBER WHAT FOR) History of laparoscopy 2/2 endometriosis History of open reduction and internal fixation (ORIF) procedure RT ANKLE History of tooth extraction Family History Father Hypertension Brother Diabetes Depression Family history of diabetes mellitus Sister Depression Family history of diabetes mellitus Social History Smoking Status: Former smoker Tobacco Type: Cigarettes Cigarettes Per Day: 10; Second Hand Exposure: No; Tobacco Cessation Education Requested by Patient: No Hx Alcohol Use: Yes Alcohol type: hard liquor Hx Substance Use: No Preferred Language: Cymraes Communication Ability: Effective Visual Impairment: No Limitations Hearing Ability: Normal Wind Site Manager Required: No Beliefs That Will Affect Care: None marital status: Current Living Situation: Alone How many Children do You have: 2 Other Information That Helps Us Care for You: No Feels Safe at Home: Yes Safety Concerns: Feels Safe At This Time Assistive Devices: Cane and Walker Assistive Devices Comment: does not have cane Review of Systems A total of 10 systems reviewed and were otherwise negative All systems reviewed & are unremarkable except as noted in HPI & below Physical Exam Vital Signs Vital Signs - 24 hr 01/16/22 04:53 01/16/22 05:03 01/16/22 05:30 Temperature 37.0 C Temperature Source Axillary Pulse Rate 75 75 Pulse Rate from SpO2 Sensor 75 Respiratory Rate 24 24 Blood Pressure 187/120 H 173/89 H Blood Pressure Mean 142 117 Pulse Oximetry 87 L 92 93 Oxygen Delivery Method Room Air Nasal Cannula Nasal Cannula Oxygen Flow Rate 3 3 Sepsis New/Unexplained Change in Mental Status N/A Sepsis Action Taken by Nursing No Action Required 01/16/22 06:00 01/16/22 06:30 01/16/22 07:00 Temperature Temperature Source Pulse Rate 67 68 Pulse Rate from SpO2 Sensor 65 73 Respiratory Rate 24 18 Blood Pressure 179/103 H 185/86 H 177/88 H Blood Pressure Mean 128 119 117 Pulse Oximetry 92 92 Oxygen Delivery Method Nasal Cannula Nasal Cannula Oxygen Flow Rate 3 3 Sepsis New/Unexplained Change in Mental Status Sepsis Action Taken by Nursing 01/16/22 07:00 Temperature Temperature Source Pulse Rate 74 Pulse Rate from SpO2 Sensor Respiratory Rate 21 Blood Pressure Blood Pressure Mean Pulse Oximetry 94 Oxygen Delivery Method Nasal Cannula Oxygen Flow Rate 3 Sepsis New/Unexplained Change in Mental Status Sepsis Action Taken by Nursing GENERAL: alert, well appearing, well nourished, no distress, non-toxic, BMI>35 EYE EXAM: normal conjunctiva, PERRL and EOM's grossly intact OROPHARYNX: no exudate, no erythema, lips, buccal mucosa, and tongue normal and mucous membranes are moist NECK: supple, no nuchal rigidity, no adenopathy, non-tender LUNGS: Coarse b/l to auscultation. Normal chest wall mechanics, no w/r/r, mild pursed lip breathing and conversational dyspnea HEART: no murmurs, S1 normal and S2 normal ABDOMEN: abdomen soft, non-tender, normo-active bowel sounds, no masses, no rebound or guarding. BACK: Back is symmetrical on inspection and there is no deformity, no midline tenderness, no CVA tenderness. SKIN: no rashes and no bruising UPPER EXTREMITIES: upper extremities are grossly normal. FROM, nml pulses b/l. LOWER EXTREMITIES: No pitting edema. FROM, nml pulses b/l. NEURO EXAM: Normal sensorium, cranial nerves II-XII grossly intact, normal speech, no gross weakness of arms, no gross weakness of legs. Gross sensation intact. Course Course 0602: Patient states she is feeling better at rest. Will try ambulatory trial. 0815: Administered Medications Acetaminophen (Acetaminophen 325 Mg Tab) 650 mg PO Q4H PRN PRN Reason: Pain or Fever Stop: 02/15/22 13:23 Last Admin: 01/16/22 13:50 Dose: 650 mg Documented By: FRANDY Albuterol (Albut/Ipratrop 3mg/0.5mg Neb 3 Ml Vial) 3 ml NEB QIDR [facility]; Protocol Stop: 02/15/22 13:23 Last Admin: 01/18/22 10:46 Dose: 3 ml Documented By: JBZoë Admin: 01/18/22 07:04 Dose: 3 ml Documented By: Admin: 01/17/22 20:00 Dose: Not Given Documented By: Admin: 01/17/22 14:13 Dose: 3 ml Documented By: Admin: 01/17/22 11:18 Dose: 3 ml Documented By: Admin: 01/17/22 06:20 Dose: 3 ml Documented By: Admin: 01/16/22 19:09 Dose: 3 ml Documented By: Admin: 01/16/22 14:51 Dose: 3 ml Documented By: Admin: 01/16/22 14:51 Dose: Not Given Documented By: NOLAN Alprazolam (Alprazolam 0.5 Mg Tablet) 1 mg PO HUSSEIN Stop: 02/15/22 20:59 Last Admin: 01/17/22 20:19 Dose: 1 mg Documented By: Admin: 01/16/22 20:51 Dose: 1 mg Documented By: JESSICA Amlodipine Besylate (Amlodipine Besylate 5 Mg Tab) 5 mg PO QA HUSSEIN Stop: 02/16/22 08:59 Last Admin: 01/18/22 09:29 Dose: 5 mg Documented By: Admin: 01/17/22 08:22 Dose: 5 mg Documented By: GERALD Aspirin (Aspirin 81 Mg Ectab) 81 mg PO HUSSEIN Stop: 02/15/22 20:59 Last Admin: 01/17/22 20:20 Dose: 81 mg Documented By: Admin: 01/16/22 21:34 Dose: 81 mg Documented By: JESSICA Azithromycin (Azithromycin 250 Mg Tab) 500 mg PO Q24H HUSSEIN Stop: 01/23/22 15:44 Last Admin: 01/17/22 15:19 Dose: 500 mg Documented By: Admin: 01/16/22 16:49 Dose: 500 mg Documented By: GERALD Carvedilol (Carvedilol 3.125 Mg Tab) 3.125 mg PO BID HUSSEIN Stop: 02/15/22 20:59 Last Admin: 01/18/22 09:29 Dose: 3.125 mg Documented By: Admin: 01/17/22 20:21 Dose: 3.125 mg Documented By: Admin: 01/17/22 08:22 Dose: 3.125 mg Documented By: Admin: 01/16/22 20:52 Dose: 3.125 mg Documented By: JESSICA Cyanocobalamin (Cyanocobalamin (B-12) 500 Mcg Tablet) 1,000 mcg PO HS HUSSEIN Stop: 02/15/22 20:59 Last Admin: 01/17/22 20:21 Dose: 1,000 mcg Documented By: Admin: 01/16/22 20:52 Dose: 1,000 mcg Documented By: JESSICA Enoxaparin Sodium (Enoxaparin Inj 40 Mg/0.4 Ml Syr) 40 mg SQ QAM HUSSEIN Stop: 02/16/22 08:59 Last Admin: 01/18/22 09:29 Dose: 40 mg Documented By: Admin: 01/17/22 15:16 Dose: 40 mg Documented By: Admin: 01/17/22 09:29 Dose: Not Given Documented By: GERALD Ceftriaxone Sodium 2,000 mg/ (Dextrose) 70 mls @ 100 mls/hr IV Q24H HUSSEIN; Protocol Stop: 01/23/22 15:44 Last Infusion: 01/17/22 16:07 Dose: 0 mls/hr Documented By: Admin: 01/17/22 15:09 Dose: 100 mls/hr Documented By: Infusion: 01/16/22 17:20 Dose: 0 mls/hr Documented By: Admin: 01/16/22 16:35 Dose: 100 mls/hr Documented By: GERALD Methylprednisolone 40 mg/ (Syringe) 0.64 mls @ 1.5 mls/min IV DAILY HUSSEIN Stop: 02/17/22 08:59 Last Admin: 01/18/22 09:31 Dose: 1.5 mls/min Documented By: FEDERICO Isosorbide Mononitrate (Isosorbide Cascade Extended Rel 60 Mg Tabcr) 60 mg PO QAM HUSSEIN Stop: 02/16/22 08:59 Last Admin: 01/18/22 09:28 Dose: 60 mg Documented By: Admin: 01/17/22 08:22 Dose: 60 mg Documented By: GERALD Lisinopril (Lisinopril 10 Mg Tab) 30 mg PO DAILY HUSSEIN Stop: 02/16/22 03:59 Last Admin: 01/18/22 09:28 Dose: 30 mg Documented By: Admin: 01/17/22 04:24 Dose: 30 mg Documented By: JESSICA Miscellaneous (Remove Nicoderm Patch) 1 each N/A DAILY@0859 [facility] Stop: 02/16/22 08:58 Last Admin: 01/18/22 09:31 Dose: 1 each Documented By: Admin: 01/17/22 08:51 Dose: 1 each Documented By: GERALD Nicotine (Nicotine 14 Mg/24 Hr Patch) 14 mg TD QAM HUSSEIN Stop: 02/15/22 13:29 Last Admin: 01/18/22 09:28 Dose: 14 mg Documented By: Admin: 01/17/22 08:23 Dose: 14 mg Documented By: Admin: 01/16/22 13:50 Dose: 14 mg Documented By: FRANDY Paroxetine HCl (Paroxetine Hcl 20 Mg Tab) 60 mg PO DAILY HUSSEIN Stop: 02/16/22 08:59 Last Admin: 01/18/22 09:29 Dose: 60 mg Documented By: Admin: 01/17/22 08:22 Dose: 60 mg Documented By: GERALD Rosuvastatin Calcium (Rosuvastatin Calcium 20 Mg Tab) 40 mg PO HS [facility] Stop: 02/15/22 20:59 Last Admin: 01/17/22 20:21 Dose: 40 mg Documented By: Admin: 01/16/22 20:52 Dose: 40 mg Documented By: JESSICA Discontinued Medications Albuterol (Albut/Ipratrop 3mg/0.5mg Neb 3 Ml Vial) 3 ml NEB NOW STA; Protocol Stop: 01/16/22 04:59 Last Admin: 01/16/22 05:10 Dose: 3 ml Documented By: MADALYN Albuterol (Albut/Ipratrop 3mg/0.5mg Neb 3 Ml Vial) 3 ml NEB NOW STA; Protocol Stop: 01/16/22 06:18 Last Admin: 01/16/22 06:34 Dose: 3 ml Documented By: ASAEL Co-signed By: MADALYN Magnesium Sulfate/Dextrose (Magnesium Sulfate / D5w) 1 gm in 100 mls @ 100 mls/hr IV NOW STA Stop: 01/16/22 05:57 Last Infusion: 01/16/22 06:12 Dose: 0 mls/hr Documented By: Admin: 01/16/22 05:21 Dose: 100 mls/hr Documented By: MADALYN Sodium Chloride (Nss 1000ml) 1,000 mls @ 125 mls/hr IV .Q8H HUSSEIN Stop: 02/15/22 04:59 Last Infusion: 01/16/22 15:49 Dose: 0 mls/hr Documented By: Admin: 01/16/22 15:02 Dose: 125 mls/hr Documented By: Infusion: 01/16/22 14:39 Dose: 0 mls/hr Documented By: Admin: 01/16/22 05:21 Dose: 125 mls/hr Documented By: MADALYN Acetaminophen (Ofirmev) 1,000 mg in 100 mls @ 400 mls/hr IV NOW STA Stop: 01/16/22 05:59 Last Infusion: 01/16/22 06:39 Dose: 0 mls/hr Documented By: Admin: 01/16/22 06:07 Dose: 400 mls/hr Documented By: GINGER Co-signed By: MADALYN Doxycycline Hyclate 100 mg/ (Dextrose) 110 mls @ 50 mls/hr IV NOW STA Stop: 01/16/22 10:31 Last Infusion: 01/16/22 12:19 Dose: 0 mls/hr Documented By: Admin: 01/16/22 10:02 Dose: 50 mls/hr Documented By: FRANDY Methylprednisolone 40 mg/ (Syringe) 0.64 mls @ 1.5 mls/min IV Q6H HUSSEIN Stop: 02/15/22 15:29 Last Admin: 01/17/22 20:19 Dose: 1.5 mls/min Documented By: Admin: 01/17/22 15:09 Dose: 1.5 mls/min Documented By: Admin: 01/17/22 08:22 Dose: 1.5 mls/min Documented By: Admin: 01/17/22 02:49 Dose: 1.5 mls/min Documented By: Admin: 01/16/22 21:34 Dose: 1.5 mls/min Documented By: Admin: 01/16/22 15:58 Dose: 1.5 mls/min Documented By: GERALD Methylprednisolone (Methylprednisolone 40 Mg/Ml Vial) 40 mg IV Q6H HUSSEIN Stop: 02/15/22 13:59 Last Admin: 01/16/22 15:56 Dose: Not Given Documented By: GERALD Sumatriptan Succinate (Sumatriptan Succinate 100 Mg Tab) 100 mg PO ONE STA Stop: 01/16/22 20:33 Last Admin: 01/16/22 20:50 Dose: 100 mg Documented By: JESSICA Sumatriptan Succinate (Sumatriptan Succinate 50 Mg Tab) 50 mg PO NOW STA Stop: 01/17/22 20:56 Last Admin: 01/17/22 22:29 Dose: 50 mg Documented By: JESSICA Medical Decision Making Differential Diagnosis Differential diagnoses includes but is not limited to pneumonia, bronchitis, COPD/Asthma exacerbation, pneumothorax, pulmonary embolism, congestive heart failure, acute coronary syndrome Medical Records Attestation: I reviewed the patient's medical records. Home Medications Current Medication List: was personally reviewed by me Laboratory Data Attestation: I reviewed the patient's lab results. Result diagrams: 01/17/22 06:54 01/17/22 06:54 Lab Results 01/16/22 01/16/22 01/16/22 Range/Units 05:08 05:08 05:08 WBC 7.01 (4.8-10.8) K/ul RBC 4.58 (3.93-5.22) M/uL Hgb 15.1 (12.0-16.0) g/dl Hct 44.7 (34.1-44.9) % MCV 97.6 (80.0-100.0) fL MCH 33.0 (25.0-34.0) pg MCHC 33.8 (32.0-36.0) g/dL RDW Std Deviation 47.8 H (36.4-46.3) fL RDW Coeff of Bryan 13.3 (11.5-14.5) % Plt Count 192 (130-400) K/uL MPV 9.8 (9.4-12.3) fL Immature Gran % (Auto) 0.3 % Neut % (Auto) 76.6 % Lymph % (Auto) 12.0 % Cascade % (Auto) 5.1 % Eos % (Auto) 5.7 % Baso % (Auto) 0.3 % Neut # (Auto) 5.37 (1.4-6.5) K/uL Lymph # (Auto) 0.84 L (1.2-3.4) K/uL Cascade # (Auto) 0.36 (0.24-0.82) K/uL Eos # (Auto) 0.40 (0-0.50) K/uL Baso # (Auto) 0.02 (0-0.2) K/uL Immature Gran # (Auto) 0.02 (0.00-0.02) K/uL Toxic Vacuolation 1+ Sodium 138 (136-145) mmol/L Potassium 4.0 (3.5-5.1) mmol/L Chloride 103 (98-107) mmol/L Carbon Dioxide 27 (21-32) mmol/L Anion Gap 8 (3-11) BUN 18 (6-23) mg/dl Creatinine 0.70 (0.6-1.2) mg/dl Est Cr Clr Drug Dosing 87.0 ml/min Est GFR ( Amer) 97.5 ml/min Est GFR (Non-Af Amer) 84.2 ml/min BUN/Creatinine Ratio 25.7 H (10-20) Glucose 200 H (70-99(Fasting)) mg/dl Calcium 9.4 (8.5-10.1) mg/dl Magnesium 1.9 (1.7-2.4) mg/dl Total Bilirubin 1.0 (0.2-1.0) mg/dl AST 31 (13-39) U/L ALT 23 (7-52) U/L Alkaline Phosphatase 53 (34-104) U/L Troponin I High Sens 11.3 D (0-14) pg/ml Total Protein 6.8 (6.0-8.3) gm/dl Albumin 4.2 (3.4-5.0) gm/dl Globulin 2.6 (2.5-4.0) gm/dl Albumin/Globulin Ratio 1.6 (0.9-2) Lipase 11 (11-82) U/L Adenovirus (PCR) Not Detected (NotDetected) B. pertussis DNA (PCR) Not Detected (NotDetected) B.parapertussis DNA PCR Not Detected (NotDetected) C. pneumoniae DNA (PCR) Not Detected (NotDetected) Coronavirus OC43 (PCR) Not Detected (NotDetected) Coronavirus HKU1 (PCR) Not Detected (NotDetected) Coronavirus 229E (PCR) Not Detected (NotDetected) SARS-CoV-2 (PCR) Not Detected (NotDetected) Coronavirus NL63 (PCR) Not Detected (NotDetected) Human Metapneumovir PCR Not Detected (NotDetected) Influenza Type A (PCR) Not Detected (NotDetected) Influenza Type B (PCR) Not Detected (NotDetected) M. pneumoniae (PCR) Not Detected (NotDetected) Parainfluenza 1 (PCR) Not Detected (NotDetected) Parainfluenza 2 (PCR) Not Detected (NotDetected) Parainfluenza 3 (PCR) Not Detected (NotDetected) Parainfluenza 4 (PCR) Not Detected (NotDetected) RSV (PCR) Not Detected (NotDetected) Entero/Rhino (PCR) Not Detected (NotDetected) Imaging Data My Impression: X-ray: I interpreted the following studies. Chest: A single view study of the chest was reviewed and was negative for focal infiltrate, effusion, pulmonary edema, or wide mediastinum. Mild CM. ECG Data Attestation: I personally reviewed and interpreted this ECG as follows: Indication: + SOB/dyspnea Rate (beats per minute): 72 Rhythm: + normal sinus ECG Intervals/blocks: + Normal QRS and + Normal QT ECG [place]: + Normal ECG ST segments: + Nonspecific ST abnormalities MDM Narrative An order was placed for continuous cardiac monitoring. The monitor shows a rate of _76__ with __normal sinus_ rhythm. This is a 76-year-old female presents emergency department due to increasing shortness of breath over the last few days, history of significant COPD and only recently quitting smoking. Patient does wear oxygen at night, however not typically during the day. She states she was using her MDIs at home very frequently without any significant relief. She states she felt significantly winded with any exertion, and was concerned that she also lives alone. Labs drawn and sent, chest x-ray performed. Patient given additional nebulizer treatments here. She had been given steroids by EMS in route. While patient reported feeling improved and had improvement in her work of breathing, she was still dyspneic and would easily desaturate with any attempts at ambulatory trial. Due to concern for risk, worsening condition, possible occult pneumonia, and patient social situation, case discussed with hospitalist for additional evaluation and management. Patient started on doxycycline as a precaution. This time I do not suspect other occult cardiac etiology of her symptoms. Impression & Plan Dyspnea, Tobacco abuse, Acute exacerbation of chronic obstructive pulmonary disease (COPD) Discharge Plan Visit Data Chief Complaint: Shortness of Breath/Dyspnea ED Provider: Keisha Ferraro Discharge Problem: Dyspnea, Tobacco abuse, Acute exacerbation of chronic obstructive pulmonary disease (COPD) Patient Disposition: Admitted As Inpatient Discharge Instructions Interventions: ED Discharge Assessment Last Done: 01/16/22 13:13
[2022-01-16] MEDS: SODIUM CHLORIDE 0.9% 1000ML 1,000 ML IV SCH ×2 (05:21→15:02)
[2022-01-16] MEDS ORDERED: ACETAMINOPHEN 1,000 MG/100 ML VIAL IV STA (05:45)
[2022-01-16 06:32] LABS: Albumin Globulin Ratio 1.6 (0.9-2); Albumin Level 4.2 gm/dl (3.4-5.0); BUN Creatinine Ratio 25.7 (10-20); Calcium 9.4 mg/dl (8.5-10.1); Est GFR (African American) 97.5 ml/min; Est GFR (Non-African American) 84.2 ml/min; Globulin 2.6 gm/dl (2.5-4.0); Magnesium 1.9 mg/dl (1.7-2.4); Total Protein 6.8 gm/dl (6.0-8.3); Troponin I High Sensitivity 11.3 pg/ml (0-14)
[2022-01-16 06:41] LABS: Hematocrit (blood only) 44.7 % (34.1-44.9); Hemoglobin 15.1 g/dl (12.0-16.0); Mean Corpuscular Hgb Conc 33.8 g/dL (32.0-36.0); Mean Corpuscular Volume 97.6 fL (80.0-100.0); Mean Platelet Volume 9.8 fL (9.4-12.3); Platelet Count 192 K/uL (130-400); RDW Coefficient of Variation 13.3 % (11.5-14.5); RDW Standard Deviation 47.8 fL (36.4-46.3); Red Blood Count 4.58 M/uL (3.93-5.22); White Blood Count 7.01 K/ul (4.8-10.8)
[2022-01-16 06:42] LABS: Basophils # (auto) 0.02 K/uL (0-0.2); Basophils % (auto) 0.3 %; Eosinophils % (auto) 5.7 %; Immature Granulocytes # (auto) 0.02 K/uL (0.00-0.02); Immature Granulocytes % (auto) 0.3 %; Lymphocytes # (auto) 0.84 K/uL (1.2-3.4); Monocytes # (auto) 0.36 K/uL (0.24-0.82); Monocytes % (auto) 5.1 %; Neutrophils # (auto) 5.37 K/uL (1.4-6.5); Neutrophils % (auto) 76.6 %; Toxic Vacuolation 1+
[2022-01-16 07:11] LABS: Adenovirus PCR Not Detected (NotDetected); Bordetella parapertussis PCR Not Detected (NotDetected); Bordetella pertussis PCR Not Detected (NotDetected); Chlamydia pneumoniae PCR Not Detected (NotDetected); Coronavirus 229E PCR Not Detected (NotDetected); Coronavirus CoV-2 (COVID19)PCR Not Detected (NotDetected); Coronavirus HKU1 PCR Not Detected (NotDetected); Coronavirus NL63 PCR Not Detected (NotDetected); Coronavirus OC43PCR Not Detected (NotDetected); Human Metapneumovirus PCR Not Detected (NotDetected); Influenza A PCR Not Detected (NotDetected); Influenza B PCR Not Detected (NotDetected); Mycoplasma pneumoniae PCR Not Detected (NotDetected); Parainfluenza Virus 1 PCR Not Detected (NotDetected); Parainfluenza Virus 2 PCR Not Detected (NotDetected); Parainfluenza Virus 3 PCR Not Detected (NotDetected); Parainfluenza Virus 4 PCR Not Detected (NotDetected); Respiratory Syncytial VirusPCR Not Detected (NotDetected); Rhinovirus/Enterovirus PCR Not Detected (NotDetected)
[2022-01-16] MEDS ORDERED: DOXYCYCLINE HYCLATE 100 MG in DEXTROSE 5% 100 ML IV STA (08:20)
--- NOTE | 2022-01-16 09:42 | History & Physical Report ---
Date of Service January 16, 2022 Assessment & Plan (1) Acute exacerbation of chronic obstructive pulmonary disease (COPD): Plan: Gradually worsening symptoms outpatient. Hypoxia noted in the ED with any exertion, which is new per pt. - Admit to PCU - IV Solumedrol 40 mg Q6 hrs, continue doxycycline started in the ED - DuoNebs Q6 hrs ATC and Q2 hrs prn SOB/Wheezing - Has appt to establish with outpatient pulm - Continue O2 for now - discussed with patient that she may need to wear with activity as well as at night moving forward - Incentive spirometry/flutter valve - PT/OT evaluations since pt lives alone (2) Hypoxia: (3) CAD (coronary artery disease): (4) Dyslipidemia, goal LDL below 70: (5) Generalized anxiety disorder: (6) Tobacco abuse: Plan: Pt willing to try nicotine patch - has been cutting back over the last few days from 1 PPD to 2 cig/day (7) Hypertension: (8) Prediabetes: Plan: Due to addition of solu-medrol will follow blood glucose - may need to add coverage depending on course (9) Delusional disorder: (10) Pneumonia: Plan Continue other home medications as appropriate Pt seen and reviewed with collaborating physician, Dr. Olvera. Plan of care discussed and as outlined above. Code Status: Full Code DVT Prophylaxis: Derek Pamla PA-C History of Present Illness Chief Complaint: Worsening shortness of breath Primary Care Provider: Merlin Barrios MD This is a 76 y/o female with a PMH of COPD, mild sleep apnea on O2 at , HTN, CAD with prior NSTEMI, prediabetes, hyperlipidemia, migraines, spastic dysphonia, depression, delusional disorder, prior atrial flutter s/p ablation, and anxiety presents with worsening shortness of breath and hypoxia. Pt reports that she saw PCP last week (01/12) for a routine follow-up and was feeling fine at this appointment. However, shortly after the appointment, she developed chills, fatigue, and worsening SOB, both at rest and with exertion. Her difficultly breathing has been increasing over the last few days. She woke up around 3 am today and decided to come to the ED for evaluation due to the severity of her symptoms. She wears oxygen at night at baseline (3L). She was admitted to [facility] in October with a COPD exacerbation - treated with steroids and doxycycline. It was recommended that she start using O2 with activity at home but pt reports that she has not been doing this. She has noted a cough productive of green mucus, no hemoptysis. She is wheezing even with taking inhalers as prescribed and using her albuterol inhaler "a lot" over the last few days. Initially the albuterol seemed to help but it no longer seems effective. Her entire chest and ribcage feels sore, which she attributes to the cough. Appetite is decreased with associated nausea but no vomiting or diarrhea. She has been dizzy at times and notes a PIÑA over the last two days. She reports that she has been taking her nitro multiple times over the last two days because she was anxious and thought she was dying and that the nitro might help. She denies syncope, peripheral edema, documented fever, dysuria or hematuria. She has noted neck pain and has chronic issues with back pain. She has a history of prediabetes but has not been modifying her diet and does not check her sugars. She is still smoking but reports she has cut back from 1 PPD to 2 cig per day over the last few days. She was recommended to use a nicotine patch in the past but she has not started this. In the ED, her sats have repeatedly dropped to the 80s with any exertion when off oxygen. Allergies Allergy/AdvReac Type Severity Reaction Status Date / Time No Known Allergies Allergy Verified 12/07/20 15:42 Home Medications Medication Instructions Recorded Confirmed Type ascorbic acid (vitamin C) 1,000 mg 500 mg PO DAILY 05/10/18 01/16/22 History tablet (Vitamin C) aspirin 81 mg tablet,delayed 81 mg PO HS 05/10/18 01/16/22 History release calcium carbonate 600 mg-vitamin 1 tab PO BID 05/10/18 01/16/22 History D3 20 mcg (800 unit) chewable tablet (Caltrate 600 plus D) omega 0-god-mcg-fish oil 1,000 mg 1 cap PO HS 05/10/18 01/16/22 History (120 mg-180 mg) capsule (Fish Oil) paroxetine HCl 30 mg tablet 60 mg PO DAILY 05/10/18 01/16/22 History albuterol sulfate 90 mcg/actuation 2 puff inhalation Q6H PRN SHORT OF 01/14/19 01/16/22 History aerosol inhaler BREATH cyanocobalamin (vitamin B-12) 1,000 mcg PO HS 01/14/19 01/16/22 History 1,000 mcg tablet nitroglycerin 0.4 mg sublingual 0.4 mg sublingual USEASDIRECTD PRN 01/14/19 01/16/22 History tablet Chest Pain sumatriptan succinate 100 mg tablet 100 mg PO UD PRN Migraine Headache 01/14/19 01/16/22 History rosuvastatin 40 mg tablet 40 mg PO HS 10/10/19 01/16/22 History fluticasone 100 mcg-salmeterol 50 1 inh inhalation BID 02/10/20 01/16/22 History mcg/dose blistr powdr for inhalation (Advair Diskus) umeclidinium 62.5 mcg/actuation 1 inh inhalation DAILY 02/10/20 01/16/22 History blister powder for inhalation (Incruse Ellipta) alprazolam 1 mg tablet 1 mg PO HS #10 tabs 02/18/20 01/16/22 Rx amlodipine 5 mg tablet (Norvasc) 5 mg PO QAM #30 tabs 11/14/21 01/16/22 Rx carvedilol 3.125 mg tablet 3.125 mg PO BID #60 tabs 11/14/21 01/16/22 Rx isosorbide mononitrate 60 mg 60 mg PO QAM #30 tabs 11/14/21 01/16/22 Rx tablet,extended release 24 hr lisinopril 20 mg tablet 20 mg PO DAILY #30 tabs 11/14/21 01/16/22 Rx Past Med/Surg History Medical History Anxiety and depression Atrial flutter s/p ablation 05/2017. Follows with [facility] cardio. CAD (coronary artery disease) Nonobstructive by 2018 cardiac cath. NSTEMI ruled 2/2 coronary spasm. COPD (chronic obstructive pulmonary disease) 2.5 LPM VIA N/C ONLY AT HS. Advair daily, rarely using rescue inhaler, ~ 3x per month Continues to smoke 1ppd COVID-19 Degenerative disc disease Delusional disorder Hyperlipidemia Hypertension Migraines Myocardial Infarction NSTEMI 04/2018 [facility] NSTEMI (non-ST elevated myocardial infarction) On home oxygen therapy 2.5L AT HS Osteoarthritis Prediabetes Sleep apnea "MILD" ONLY WEARS O2 AT 2.5L AT HS Tear of lateral meniscus of right knee Tear of medial meniscus of right knee Tobacco abuse Surgical History History of breast biopsy History of cardiac cath 04/2018 for NSTEMI, Nonobstructive moderate proximal to mid LAD disease. History of cardiac radiofrequency ablation 2018 History of section X 2 History of colonoscopy History of dilatation and curettage History of discectomy LUMBAR History of eye surgery RT EYE (CAN'T REMEMBER WHAT FOR) History of laparoscopy 2/2 endometriosis History of open reduction and internal fixation (ORIF) procedure RT ANKLE History of tooth extraction Family History Father Hypertension Brother Diabetes Depression Family history of diabetes mellitus Sister Depression Family history of diabetes mellitus Social History Smoking Status: Current every day smoker Tobacco Type: Cigarettes Cigarettes Per Day: 20 DAILY; Second Hand Exposure: No; Hx Alcohol Use: No Hx Substance Use: No Preferred Language: [place]uran Communication Ability: Effective Visual Impairment: No Limitations Hearing Ability: Normal Director Validation Required: No Beliefs That Will Affect Care: None marital status: Current Living Situation: Alone How many Children do You have: 2 Feels Safe at Home: Yes Assistive Devices: Cane, Oxygen - at Night and Walker Review of Systems Review of Systems: All systems reviewed & are unremarkable except as noted in HPI & below Constitutional: + chills, + fatigue and + anorexia; no fever Eyes: no diplopia Ear, Nose, Mouth, Throat: no nasal congestion and no sore throat Respiratory: + cough, + dyspnea, + dyspnea on exertion and + wheezing; no hemoptysis Cardiovascular: no palpitations, no syncope and no edema Gastrointestinal: + nausea; no vomiting, no diarrhea/loose stools and no blood in stools Genitourinary: no dysuria and no hematuria Musculoskeletal: + back pain Integumentary: no yellowing of the skin Neurologic: + generalized weakness, + dizziness and + headache(s) Psychiatric: + anxiety Physical Exam Constitutional: well developed and well nourished; no acute distress Eyes: + anicteric sclerae Neck: trachea midline Respiratory: no respiratory distress and no labored breathing Auscultation: + diminished lung sounds and + wheezes (occasional faint expiratory); no rales and no rhonchi Cardiovascular: Rate/Rhythm: regular rate and regular rhythm Vessels: dorsalis pedis pulses present and radial pulses present Extremities: no pedal edema mild diffuse chest wall tenderness Gastrointestinal (Abdomen): Inspection/Auscultation: normal bowel sounds; abdomen not distended Percussion/Palpation: abdomen soft; abdomen nontender Musculoskeletal: Head/Neck/Chest: normocephalic, head atraumatic and neck supple Skin: no jaundice Neurologic: moves all extremities; no focal motor deficits and not confused Psychiatric: Affect: + anxious affect Results & Data Results & Data ([facility]) Vital Signs (Past 12 Hours) Vital Signs Temp Pulse Resp BP Pulse Ox O2 Del Method O2 Flow Rate 01/16/22 07:00 74 21 94 Nasal Cannula 3 01/16/22 07:00 177/88 H 01/16/22 06:30 68 18 185/86 H 92 Nasal Cannula 3 01/16/22 06:00 67 24 179/103 H 92 Nasal Cannula 3 01/16/22 05:30 75 24 173/89 H 93 Nasal Cannula 3 01/16/22 05:03 92 Nasal Cannula 3 01/16/22 04:53 37.0 C 75 24 187/120 H 87 L Room Air Laboratory Results Laboratory Results - last 24 hr 01/16/22 01/16/22 01/16/22 05:08 05:08 05:08 WBC 7.01 RBC 4.58 Hgb 15.1 Hct 44.7 MCV 97.6 MCH 33.0 MCHC 33.8 RDW Std Deviation 47.8 H RDW Coeff of Bryan 13.3 Plt Count 192 MPV 9.8 Immature Gran % (Auto) 0.3 Neut % (Auto) 76.6 Lymph % (Auto) 12.0 [place] % (Auto) 5.1 Eos % (Auto) 5.7 Baso % (Auto) 0.3 Neut # (Auto) 5.37 Lymph # (Auto) 0.84 L [place] # (Auto) 0.36 Eos # (Auto) 0.40 Baso # (Auto) 0.02 Immature Gran # (Auto) 0.02 Toxic Vacuolation 1+ Sodium 138 Potassium 4.0 Chloride 103 Carbon Dioxide 27 Anion Gap 8 BUN 18 Creatinine 0.70 Est Cr Clr Drug Dosing 87.0 Est GFR ( Amer) 97.5 Est GFR (Non-Af Amer) 84.2 BUN/Creatinine Ratio 25.7 H Glucose 200 H Calcium 9.4 Magnesium 1.9 Total Bilirubin 1.0 AST 31 ALT 23 Alkaline Phosphatase 53 Troponin I High Sens 11.3 D Total Protein 6.8 Albumin 4.2 Globulin 2.6 Albumin/Globulin Ratio 1.6 Lipase 11 Adenovirus (PCR) Not Detected B. pertussis DNA (PCR) Not Detected B.parapertussis DNA PCR Not Detected C. pneumoniae DNA (PCR) Not Detected Coronavirus OC43 (PCR) Not Detected Coronavirus HKU1 (PCR) Not Detected Coronavirus 229E (PCR) Not Detected SARS-CoV-2 (PCR) Not Detected Coronavirus NL63 (PCR) Not Detected Human Metapneumovir PCR Not Detected Influenza Type A (PCR) Not Detected Influenza Type B (PCR) Not Detected M. pneumoniae (PCR) Not Detected Parainfluenza 1 (PCR) Not Detected Parainfluenza 2 (PCR) Not Detected Parainfluenza 3 (PCR) Not Detected Parainfluenza 4 (PCR) Not Detected RSV (PCR) Not Detected Entero/Rhino (PCR) Not Detected Diagnostic Findings Chest X-ray 01/16/22 - IMPRESSION: 1. Small left lower lung airspace opacity may represent atelectasis, pneumonia, and/or aspiration. 2. Cardiomegaly and mild pulmonary edema. Medications Administered Sodium Chloride (Nss 1000ml) 1,000 mls @ 125 mls/hr IV .Q8H [facility] Stop: 02/15/22 04:59 Last Admin: 01/16/22 05:21 Dose: 125 mls/hr Documented By: MADALYN Discontinued Medications Albuterol (Albut/Ipratrop 3mg/0.5mg Neb 3 Ml Vial) 3 ml NEB NOW STA; Protocol Stop: 01/16/22 04:59 Last Admin: 01/16/22 05:10 Dose: 3 ml Documented By: MADALYN Albuterol (Albut/Ipratrop 3mg/0.5mg Neb 3 Ml Vial) 3 ml NEB NOW STA; Protocol Stop: 01/16/22 06:18 Last Admin: 01/16/22 06:34 Dose: 3 ml Documented By: ASAEL Co-signed By: MADALYN Magnesium Sulfate/Dextrose (Magnesium Sulfate / D5w) 1 gm in 100 mls @ 100 mls/hr IV NOW STA Stop: 01/16/22 05:57 Last Infusion: 01/16/22 06:12 Dose: 0 mls/hr Documented By: Admin: 01/16/22 05:21 Dose: 100 mls/hr Documented By: MADALYN Acetaminophen (Ofirmev) 1,000 mg in 100 mls @ 400 mls/hr IV NOW STA Stop: 01/16/22 05:59 Last Infusion: 01/16/22 06:39 Dose: 0 mls/hr Documented By: Admin: 01/16/22 06:07 Dose: 400 mls/hr Documented By: ASAEL Co-signed By: MADALYN Code Status & VTE Plan VTE Prophylaxis Plan VTE Prophylaxis will be ordered: Yes Supervising Physician Co-Signing Physician Notes I have seen and examined the patient and have discussed the case with the provider above. I agree with the assessment and plan as stated with the following exceptions: 76-year-old female presented to the ER with increasing shortness of breath of the last couple of days. She was found to be hypoxic and only wears oxygen at home during the night, not typically during the day. She recently quit smoking and has a history of COPD that is known. She reports increased cough nasal congestion sore throat runny nose and now has bilateral rib pain from all of her coughing. EMS provider gave nebulizer treatments and Solu-Medrol 125 IV in route to the hospital. She also received additional nebulizer treatment after arriving in the ER. At this time she reports feeling better. Physical exam reveals an anxious appearing obese female in no acute distress who is speaking in full sentences. She does not have any increased work of breathing and submental oxygen is in place. She is mentating normally and able to give a history of the last couple of days. She is oriented to person place and time. Lung exam reveals decreased breath sounds throughout with no evidence of wheezing rhonchi or rales. Cardiac exam reveals S1/S2 with no evidence of murmurs rubs or gallops. Abdomen is obese, nondistended, nontender. She has no focal tenderness in her lower lateral ribs bilaterally. Work-up reveals normal CBC, normal BMP with the glucose of 200. Renal function is normal with a BUN 18 creatinine 0.70. Calcium, LFTs and bilirubin are all within normal limits. Highly sensitive troponin is normal at 11.3. Lipase is 11. Bio fire respiratory panel was negative chest x-ray revealed small left lower lung space opacity and mild pulmonary edema. EKG reveals sinus rhythm with PACs. There are ST changes that are unchanged from prior EKG. 76-year-old female presents with COPD exacerbation secondary to pneumonia. She is requiring a small amount of oxygen supplementation and not working too hard to breathe. She is improved after immediate treatment in the ER including nebulizer therapies and Solu-Medrol. Agree with plan to monitor her blood sugars. Given her history of metabolic syndrome. Her blood pressure is elevated, however, she is very anxious. We will continue to monitor this on the floor and if necessary give additional blood pressure medications and/or Xanax which she takes at home. We will discontinue IV fluids at this time given hypertension and pulmonary congestion on chest x-ray. There is no evidence of sepsis. We will adjust doxycycline to Rocephin and azithromycin. Agree with continuation of steroids at this point given history of wheezing for several days. Continue nebulizer therapy. Smoking cessation strongly advised. Nicotine patch was given. Patient has a history of delusional disorder which may be contributing to her anxiety. If she does not improve, may consider psychiatry consult. DO Wade (1) CAD (coronary artery disease) Associated angina: without angina Coronary Disease-Associated Artery/Lesion type: [place] artery [place] vs. transplanted heart: [place] heart Qualified Code(s): I25.10 - Atherosclerotic heart disease of [place] coronary artery without angina pectoris (2) Hypertension Hypertension type: essential hypertension Qualified Code(s): I10 - Essential (primary) hypertension (3) Pneumonia Pneumonia type: due to unspecified organism Laterality: left Lung location: lower lobe of lung Qualified Code(s): J18.9 - Pneumonia, unspecified organism
--- NOTE | 2022-01-16 12:10 | XRay Report ---
XR chest 1V portable CLINICAL HISTORY: sob TECHNIQUE: Single frontal radiograph of the chest was obtained. Comparison: Comparison is made to chest radiograph 11/09/2021 FINDINGS: No lines and tubes are seen. Cardiomegaly is noted. Prominence and cephalization of the vasculature i s seen. There is a small focus of airspace opacity in the left lower lobe. Eventration of the diaphra gm is noted in the right. No evidence of pleural effusion or pneumothorax. IMPRESSION: 1. Small left lower lung airspace opacity may represent atelectasis, pneumonia, and/or aspiration. 2. Cardiomegaly and mild pulmonary edema. ACT 112: Negative or not required by law. Electronically signed by: Cuong Alcazar M.D. 01/16/2022 12:09 PM
[2022-01-16] MEDS: NICOTINE 14 MG/24 HR PATCH TD SCH (13:50)
[2022-01-16] MEDS: ACETAMINOPHEN 325 MG TAB PO PRN (13:50)
[2022-01-16] MEDS: ALBUT/IPRATROP 3MG/0.5MG NEB 3 ML VIAL NEB SCH ×3 (14:51→19:09)
[2022-01-16] MEDS: methylPREDNISolone 40 MG in SYRINGE 0 ML IV SCH ×2 (15:58→21:34)
[2022-01-16] MEDS: cefTRIAXone SODIUM 2,000 MG in DEXTROSE 5% 50 ML IV SCH (16:35)
[2022-01-16] MEDS: AZITHROMYCIN 250 MG TAB PO SCH (16:49)
[2022-01-16] MEDS ORDERED: SUMAtriptan succinate 100 MG TAB PO STA (20:32)
[2022-01-16] MEDS: ALPRAZolam 0.5 MG TABLET PO SCH (20:51)
[2022-01-16] MEDS: CYANOCOBALAMIN (B-12) 500 MCG TABLET PO SCH (20:52)
[2022-01-16] MEDS: ROSUVASTATIN CALCIUM 20 MG TAB PO SCH (20:52)
[2022-01-16] MEDS: carvediloL 3.125 MG TAB PO SCH (20:52)
[2022-01-16] MEDS ORDERED: DOXYCYCLINE HYCLATE 100 MG CAP PO SCH (21:00)
[2022-01-16] MEDS: ASPIRIN 81 MG ECTAB PO SCH (21:34)
[2022-01-17] MEDS: methylPREDNISolone 40 MG in SYRINGE 0 ML IV SCH ×4 (02:49→20:19)
[2022-01-17] MEDS: lisinopril 10 MG TAB PO SCH (04:24)
--- NOTE | 2022-01-17 05:19 | Electrocardiogram Report ---
Test Reason : Blood Pressure : / mmHG Vent. Rate : 072 BPM Atrial Rate : 072 BPM P-R Int : 152 ms QRS Dur : 090 ms QT Int : 386 ms P-R-T Axes : 053 -28 134 degrees QTc Int : 422 ms Sinus rhythm with Premature atrial complexes Abnormal ECG When compared with ECG of 12-NOV-2021 06:06, Premature atrial complexes are now Present T wave inversion less evident in Anterior leads Confirmed by Farhat Vazquez ([id number]) on 01/17/2022 5:18:50 AM Referred By: REFERRED SELF Confirmed By:Farhat Vazquez
[2022-01-17] MEDS: ALBUT/IPRATROP 3MG/0.5MG NEB 3 ML VIAL NEB SCH ×4 (06:20→20:00)
[2022-01-17 07:37] LABS: Basophils # (auto) 0.01 K/uL (0-0.2); Basophils % (auto) 0.1 %; Hematocrit (blood only) 45.9 % (34.1-44.9); Hemoglobin 15.3 g/dl (12.0-16.0); Immature Granulocytes % (auto) 1.4 %; Lymphocytes # (auto) 1.01 K/uL (1.2-3.4); Lymphocytes % (auto) 14.4 %; Mean Corpuscular Hemoglobin 32.8 pg (25.0-34.0); Mean Corpuscular Hgb Conc 33.3 g/dL (32.0-36.0); Mean Corpuscular Volume 98.3 fL (80.0-100.0); Mean Platelet Volume 9.5 fL (9.4-12.3); Monocytes % (auto) 2.8 %; Neutrophils % (auto) 81.3 %; Platelet Count 212 K/uL (130-400); RDW Coefficient of Variation 13.7 % (11.5-14.5); RDW Standard Deviation 49.9 fL (36.4-46.3); Red Blood Count 4.67 M/uL (3.93-5.22); White Blood Count 7.02 K/ul (4.8-10.8)
[2022-01-17 08:08] LABS: BUN Creatinine Ratio 19.7 (10-20); Calcium 9.2 mg/dl (8.5-10.1); Creatinine Clr Calc Pharmacy 86.4 ml/min; Est GFR (African American) 95.9 ml/min; Est GFR (Non-African American) 82.7 ml/min; Potassium 4.3 mmol/L (3.5-5.1)
[2022-01-17] MEDS: PARoxetine HCL 20 MG TAB PO SCH (08:22)
[2022-01-17] MEDS: carvediloL 3.125 MG TAB PO SCH ×2 (08:22→20:21)
[2022-01-17] MEDS: amLODIPine BESYLATE 5 MG TAB PO SCH (08:22)
[2022-01-17] MEDS: ISOSORBIDE MONO EXTENDED REL 60 MG TABCR PO SCH (08:22)
[2022-01-17] MEDS: ENOXAPARIN INJ 40 MG/0.4 ML SYR SQ SCH ×3 (08:23→15:16)
[2022-01-17] MEDS: NICOTINE 14 MG/24 HR PATCH TD SCH (08:23)
[2022-01-17] MEDS ORDERED: lisinopril 20 MG TAB PO SCH (09:00)
[2022-01-17] MEDS: cefTRIAXone SODIUM 2,000 MG in DEXTROSE 5% 50 ML IV SCH (15:09)
[2022-01-17] MEDS: AZITHROMYCIN 250 MG TAB PO SCH (15:19)
--- NOTE | 2022-01-17 15:37 | Hospitalist Progress Note ---
Date of Service January 17, 2022 Assessment & Plan (1) Acute exacerbation of chronic obstructive pulmonary disease (COPD): Plan: Left lower lobe pneumonia Chest x-ray: Lower lobe pneumonia Remains on 2 L of oxygen via nasal cannula Sputum culture: Pending Continue Solu-Medrol 40 mg every 8 hours then prednisone taper Continue ceftriaxone plus azithromycin Continue DuoNeb 4 times daily (2) Hypoxia: Plan: Secondary to #1 (3) CAD (coronary artery disease): Plan: Continue usual aspirin, Imdur, carvedilol, lisinopril, Crestor (4) Dyslipidemia, goal LDL below 70: (5) Generalized anxiety disorder: Plan: Continue usual Paxil, Xanax (6) Tobacco abuse: Plan: Pt willing to try nicotine patch - has been cutting back over the last few days from 1 PPD to 2 cig/day (7) Hypertension: Plan: Continue usual meds per above (8) Prediabetes: Plan: A1c 6.0 BSG 1 57-1 64 (9) Delusional disorder: Plan Code Status: Full Code DVT Prophylaxis: Lovenox Disposition Discharge to home when medically stable May need oxygen supplement upon discharge Admission and Anticipated Discharge Date Admission Date: January 16, 2022 Subjective Follow-up for acute COPD exacerbation, pneumonia, etc. Seen resting in bed, sitting up, not in distress On 2 L of oxygen by nasal cannula States she feels improved compared to yesterday during admission Still having productive cough but less Breathing is improving No chills No chest pain No other symptom Review of Systems Review of Systems: all noted and negative except for above Physical Exam Physical Exam: General- oriented x 3, not in distress, speaks in sentences with no effort or accessory muscle use Eyes- anicteric Neck- no JVD Lungs- positive mild crackles in left base No wheezing Heart- normal rate, regular rhythm; no murmurs Abdomen- normal bowel sounds, nondistended, soft, no tenderness Extremities- no pretibial edema, no calf tenderness Neuro- alert, oriented x 3; no gross focal neurologic deficits Skin- warm & dry Results & Data Results & Data ([facility]) Vital Signs (Past 12 Hours) Vital Signs Temp Pulse Pulse Resp BP Pulse Ox Pulse Ox 01/17/22 14:13 78 18 92 01/17/22 11:43 92 01/17/22 11:19 72 20 96 01/17/22 10:48 36.6 C 87 18 101/41 L 92 01/17/22 07:30 78 01/17/22 07:30 01/17/22 07:44 36.9 C 79 20 175/104 H 91 01/17/22 06:21 88 20 92 01/17/22 05:41 145/78 H Pulse Ox Pulse Ox O2 Del Method O2 Flow Rate O2 Flow Rate O2 Flow Rate O2 Flow Rate 01/17/22 14:13 Nasal Cannula 3 01/17/22 11:43 91 84 L 3 3 0 01/17/22 11:19 Nasal Cannula 4 01/17/22 10:48 Nasal Cannula 4.0 01/17/22 07:30 01/17/22 07:30 Nasal Cannula 4 01/17/22 07:44 Nasal Cannula 4.0 01/17/22 06:21 Nasal Cannula 3 01/17/22 05:41 all noted and reviewed including below (1) CAD (coronary artery disease) Coronary Disease-Associated Artery/Lesion type: [place] artery [place] vs. transplanted heart: [place] heart Associated angina: without angina Qualified Code(s): I25.10 - Atherosclerotic heart disease of [place] coronary artery without angina pectoris (2) Hypertension Hypertension type: essential hypertension Qualified Code(s): I10 - Essential (primary) hypertension
[2022-01-17] MEDS: ALPRAZolam 0.5 MG TABLET PO SCH (20:19)
[2022-01-17] MEDS: ASPIRIN 81 MG ECTAB PO SCH (20:20)
[2022-01-17] MEDS: ROSUVASTATIN CALCIUM 20 MG TAB PO SCH (20:21)
[2022-01-17] MEDS: CYANOCOBALAMIN (B-12) 500 MCG TABLET PO SCH (20:21)
[2022-01-17] MEDS ORDERED: SUMAtriptan succinate 50 MG TAB PO STA (20:55)
[2022-01-18] MEDS: ALBUT/IPRATROP 3MG/0.5MG NEB 3 ML VIAL NEB SCH ×4 (07:04→19:33)
[2022-01-18] MEDS ORDERED: methylPREDNISolone 40 MG in SYRINGE 0 ML IV SCH (09:00)
[2022-01-18] MEDS: NICOTINE 14 MG/24 HR PATCH TD SCH (09:28)
[2022-01-18] MEDS: ISOSORBIDE MONO EXTENDED REL 60 MG TABCR PO SCH (09:28)
[2022-01-18] MEDS: lisinopril 10 MG TAB PO SCH (09:28)
[2022-01-18] MEDS: ENOXAPARIN INJ 40 MG/0.4 ML SYR SQ SCH (09:29)
[2022-01-18] MEDS: amLODIPine BESYLATE 5 MG TAB PO SCH (09:29)
[2022-01-18] MEDS: PARoxetine HCL 20 MG TAB PO SCH (09:29)
[2022-01-18] MEDS: carvediloL 3.125 MG TAB PO SCH ×2 (09:29→20:23)
[2022-01-18] MEDS ORDERED: COUGH DROP (SUGAR FREE) LOZ 24 LOZ/1 BOX BUCCAL ONE (11:24)
[2022-01-18] MEDS: ACETAMINOPHEN 325 MG TAB PO PRN (13:31)
--- NOTE | 2022-01-18 13:37 | Hospitalist Progress Note ---
Date of Service January 18, 2022 Assessment & Plan (1) Acute exacerbation of chronic obstructive pulmonary disease (COPD): Plan: - CXR with Left lower lobe pneumonia - Remains on 2 L of oxygen via nasal cannula - reportedly wears at home - IV steroids - transition to Prednisone 40mg daily for total of 5 days - continue abx for 5-7 days - duoneb prn - continue home inhalers - 2-step prior to discharge for home O2 requirements (2) CAD (coronary artery disease): Plan: - Continue usual aspirin, Imdur, carvedilol, lisinopril, Crestor - no chest pain currently - monitor (3) Dyslipidemia, goal LDL below 70: Plan: - continue statin (4) Generalized anxiety disorder: Plan: - Continue usual Paxil, Xanax (5) Tobacco abuse: Plan: - Pt willing to try nicotine patch - has been cutting back over the last few days from 1 PPD to 2 cig/day - smoking cessation encouraged (6) Hypertension: Plan: - Continue usual meds per above (7) Prediabetes: Plan: - A1c 6.0% - noted (8) Delusional disorder: Plan: - noted Plan Code Status: Full Code DVT Prophylaxis: Lovenox Disposition Discharge to home when medically stable May need oxygen supplement upon discharge Sahil Joseph MD Hospital Medicine Admission and Anticipated Discharge Date Admission Date: January 16, 2022 Subjective Patient admitted with COPD exacerbation, started on steroids and abx. Wears oxygen at home, patient reports at night. Requiring oxygen while inpatient. Patient reports improvement in her symptoms. Denies chest pain, shortness of breath, wheezing, n/v/d, abdominal pain, dysuria. Review of Systems Review of Systems: All systems reviewed & are unremarkable except as noted in Subjective Physical Exam Physical Exam: General- oriented x 3, not in distress, speaks in sentences with no effort or accessory muscle use Eyes- anicteric Neck- no JVD Lungs- positive mild crackles in left base No wheezing Heart- normal rate, regular rhythm; no murmurs Abdomen- normal bowel sounds, nondistended, soft, no tenderness Extremities- no pretibial edema, no calf tenderness Neuro- alert, oriented x 3; no gross focal neurologic deficits Skin- warm & dry Results & Data Results & Data ([facility]) Vital Signs (Past 12 Hours) Vital Signs Temp Pulse Pulse Resp BP Pulse Ox O2 Del Method 01/18/22 11:49 36.7 C 73 19 168/104 H 90 Nasal Cannula 01/18/22 08:00 74 01/18/22 08:00 Nasal Cannula 01/18/22 10:46 74 18 97 Nasal Cannula 01/18/22 08:00 36.6 C 83 18 156/79 H 97 01/18/22 07:05 83 18 98 Nasal Cannula 01/18/22 04:12 165/78 H 01/18/22 03:13 36.6 C 74 18 185/73 H 94 O2 Flow Rate 01/18/22 11:49 3.0 01/18/22 08:00 01/18/22 08:00 4 01/18/22 10:46 3 01/18/22 08:00 01/18/22 07:05 3 01/18/22 04:12 01/18/22 03:13 Diagnostic Findings Laboratory Results WBC 7.02 K/ul (4.8-10.8) 01/17/22 06:54 RBC 4.67 M/uL (3.93-5.22) 01/17/22 06:54 Hgb 15.3 g/dl (12.0-16.0) 01/17/22 06:54 Hct 45.9 % (34.1-44.9) H 01/17/22 06:54 MCV 98.3 fL (80.0-100.0) 01/17/22 06:54 MCH 32.8 pg (25.0-34.0) 01/17/22 06:54 MCHC 33.3 g/dL (32.0-36.0) 01/17/22 06:54 RDW Std Deviation 49.9 fL (36.4-46.3) H 01/17/22 06:54 RDW Coeff of Bryan 13.7 % (11.5-14.5) 01/17/22 06:54 Plt Count 212 K/uL (130-400) 01/17/22 06:54 MPV 9.5 fL (9.4-12.3) 01/17/22 06:54 Immature Gran % (Auto) 1.4 % 01/17/22 06:54 Neut % (Auto) 81.3 % 01/17/22 06:54 Lymph % (Auto) 14.4 % 01/17/22 06:54 [place] % (Auto) 2.8 % 01/17/22 06:54 Eos % (Auto) 0.0 % 01/17/22 06:54 Baso % (Auto) 0.1 % 01/17/22 06:54 Neut # (Auto) 5.70 K/uL (1.4-6.5) 01/17/22 06:54 Lymph # (Auto) 1.01 K/uL (1.2-3.4) L 01/17/22 06:54 [place] # (Auto) 0.20 K/uL (0.24-0.82) L 01/17/22 06:54 Eos # (Auto) 0.00 K/uL (0-0.50) 01/17/22 06:54 Baso # (Auto) 0.01 K/uL (0-0.2) 01/17/22 06:54 Immature Gran # (Auto) 0.10 K/uL (0.00-0.02) H 01/17/22 06:54 Toxic Vacuolation 1+ 01/16/22 05:08 Sodium 139 mmol/L (136-145) 01/17/22 06:54 Potassium 4.3 mmol/L (3.5-5.1) 01/17/22 06:54 Chloride 102 mmol/L (98-107) 01/17/22 06:54 Carbon Dioxide 32 mmol/L (21-32) 01/17/22 06:54 Anion Gap 5 (3-11) 01/17/22 06:54 BUN 14 mg/dl (6-23) 01/17/22 06:54 Creatinine 0.71 mg/dl (0.6-1.2) 01/17/22 06:54 Est Cr Clr Drug Dosing 86.4 ml/min 01/17/22 06:54 Est GFR ( Amer) 95.9 ml/min 01/17/22 06:54 Est GFR (Non-Af Amer) 82.7 ml/min 01/17/22 06:54 BUN/Creatinine Ratio 19.7 (10-20) 01/17/22 06:54 Glucose 165 mg/dl (70-99(Fasting)) H 01/17/22 06:54 POC Glucose 132 mg/dl (70-99) H 01/18/22 11:25 Calcium 9.2 mg/dl (8.5-10.1) 01/17/22 06:54 Magnesium 1.9 mg/dl (1.7-2.4) 01/16/22 05:08 Total Bilirubin 1.0 mg/dl (0.2-1.0) 01/16/22 05:08 AST 31 U/L (13-39) 01/16/22 05:08 ALT 23 U/L (7-52) 01/16/22 05:08 Alkaline Phosphatase 53 U/L (34-104) 01/16/22 05:08 Troponin I High Sens 11.3 pg/ml (0-14) D 01/16/22 05:08 Total Protein 6.8 gm/dl (6.0-8.3) 01/16/22 05:08 Albumin 4.2 gm/dl (3.4-5.0) 01/16/22 05:08 Globulin 2.6 gm/dl (2.5-4.0) 01/16/22 05:08 Albumin/Globulin Ratio 1.6 (0.9-2) 01/16/22 05:08 Lipase 11 U/L (11-82) 01/16/22 05:08 Adenovirus (PCR) Not Detected (NotDetected) 01/16/22 05:08 B. pertussis DNA (PCR) Not Detected (NotDetected) 01/16/22 05:08 B.parapertussis DNA PCR Not Detected (NotDetected) 01/16/22 05:08 C. pneumoniae DNA (PCR) Not Detected (NotDetected) 01/16/22 05:08 Coronavirus OC43 (PCR) Not Detected (NotDetected) 01/16/22 05:08 Coronavirus HKU1 (PCR) Not Detected (NotDetected) 01/16/22 05:08 Coronavirus 229E (PCR) Not Detected (NotDetected) 01/16/22 05:08 SARS-CoV-2 (PCR) Not Detected (NotDetected) 01/16/22 05:08 Coronavirus NL63 (PCR) Not Detected (NotDetected) 01/16/22 05:08 Human Metapneumovir PCR Not Detected (NotDetected) 01/16/22 05:08 Influenza Type A (PCR) Not Detected (NotDetected) 01/16/22 05:08 Influenza Type B (PCR) Not Detected (NotDetected) 01/16/22 05:08 M. pneumoniae (PCR) Not Detected (NotDetected) 01/16/22 05:08 Parainfluenza 1 (PCR) Not Detected (NotDetected) 01/16/22 05:08 Parainfluenza 2 (PCR) Not Detected (NotDetected) 01/16/22 05:08 Parainfluenza 3 (PCR) Not Detected (NotDetected) 01/16/22 05:08 Parainfluenza 4 (PCR) Not Detected (NotDetected) 01/16/22 05:08 RSV (PCR) Not Detected (NotDetected) 01/16/22 05:08 Entero/Rhino (PCR) Not Detected (NotDetected) 01/16/22 05:08 Impressions Chest X-Ray 01/16/22 04:58 XR chest 1V portable CLINICAL HISTORY: sob TECHNIQUE: Single frontal radiograph of the chest was obtained. Comparison: Comparison is made to chest radiograph 11/09/2021 FINDINGS: No lines and tubes are seen. Cardiomegaly is noted. Prominence and cephalization of the vasculature is seen. There is a small focus of airspace opacity in the left lower lobe. Eventration of the diaphragm is noted in the right. No evidence of pleural effusion or pneumothorax. IMPRESSION: 1. Small left lower lung airspace opacity may represent atelectasis, pneumonia, and/or aspiration. 2. Cardiomegaly and mild pulmonary edema. ACT 112: Negative or not required by law. Electronically signed by: Cuong Alcazar M.D. 01/16/2022 12:09 PM Medications Administered Current Inpatient Medications Acetaminophen (Acetaminophen 325 Mg Tab) 650 mg PO Q4H PRN PRN Reason: Pain or Fever Stop: 02/15/22 13:23 Last Admin: 01/18/22 13:31 Dose: 650 mg Albuterol (Albut/Ipratrop 3mg/0.5mg Neb 3 Ml Vial) 3 ml NEB QIDR [facility]; Protocol Stop: 02/15/22 13:23 Last Admin: 01/18/22 10:46 Dose: 3 ml Alprazolam (Alprazolam 0.5 Mg Tablet) 1 mg PO [facility] Stop: 02/15/22 20:59 Last Admin: 01/17/22 20:19 Dose: 1 mg Amlodipine Besylate ([facility]odipine Besylate 5 Mg Tab) [facility]: 02/16/22 08:59 Last Admin: 01/18/22 09:29 Dose: 5 mg Aspirin (Aspirin 81 Mg Ectab) 81 mg PO [facility] Stop: 02/15/22 20:59 Last Admin: 01/17/22 20:20 Dose: 81 mg Azithromycin (Azithromycin 250 Mg Tab) 500 mg PO Q24H [facility] Stop: 01/23/22 15:44 Last Admin: 01/17/22 15:19 Dose: 500 mg Carvedilol (Carvedilol 3.125 Mg Tab) 3.125 mg PO BID [facility] Stop: 02/15/22 20:59 Last Admin: 01/18/22 09:29 Dose: 3.125 mg Cyanocobalamin (Cyanocobalamin (B-12) 500 Mcg Tablet) 1,000 mcg PO [facility] Stop: 02/15/22 20:59 Last Admin: 01/17/22 20:21 Dose: 1,000 mcg Enoxaparin Sodium (Enoxaparin Inj 40 Mg/0.4 Ml Syr) 40 mg SQ QAM [facility] Stop: 02/16/22 08:59 Last Admin: 01/18/22 09:29 Dose: 40 mg Ceftriaxone Sodium 2,000 mg/ (Dextrose) 70 mls @ 100 mls/hr IV Q24H [facility]; Protocol Stop: 01/23/22 15:44 Last Infusion: 01/17/22 16:07 Dose: Infused Isosorbide Mononitrate (Isosorbide [place] Extended Rel 60 Mg Tabcr) [facility] [place] Stop: 02/16/22 08:59 Last Admin: 01/18/22 09:28 Dose: 60 mg Lisinopril (Lisinopril 10 Mg Tab) 30 mg PO DAILY [facility] Stop: 02/16/22 03:59 Last Admin: 01/18/22 09:28 Dose: 30 mg Miscellaneous (Remove Nicoderm Patch) 1 each N/A DAILY@0859 [facility] Stop: 02/16/22 08:58 Last Admin: 01/18/22 09:31 Dose: 1 each Nicotine (Nicotine 14 Mg/24 Hr Patch) 14 mg TD QAM [facility] Stop: 02/15/22 13:29 Last Admin: 01/18/22 09:28 Dose: 14 mg Paroxetine HCl (Paroxetine Hcl 20 Mg Tab) 60 mg PO DAILY [facility] Stop: 02/16/22 08:59 Last Admin: 01/18/22 09:29 Dose: 60 mg Prednisone (Prednisone 20 Mg Tab) 40 mg PO DAILY [facility] Stop: 02/17/22 13:44 Rosuvastatin Calcium (Rosuvastatin Calcium 20 Mg Tab) 40 mg PO HS [facility] Stop: 02/15/22 20:59 Last Admin: 01/17/22 20:21 Dose: 40 mg (1) CAD (coronary artery disease) Coronary Disease-Associated Artery/Lesion type: [place] artery [place] vs. transplanted heart: [place] heart Associated angina: without angina Qualified Code(s): I25.10 - Atherosclerotic heart disease of [place] coronary artery without angina pectoris (2) Hypertension Hypertension type: essential hypertension Qualified Code(s): I10 - Essential (primary) hypertension
[2022-01-18] MEDS: hydrOXYzine HCl 25 MG TAB PO PRN ×2 (15:27→23:32)
[2022-01-18] MEDS: BUTALBITAL/ACETAMIN/CAFFEINE TAB PO PRN ×2 (15:27→23:32)
[2022-01-18] MEDS: cefTRIAXone SODIUM 2,000 MG in DEXTROSE 5% 50 ML IV SCH (17:50)
[2022-01-18] MEDS: AZITHROMYCIN 250 MG TAB PO SCH (17:51)
[2022-01-18] MEDS: ROSUVASTATIN CALCIUM 20 MG TAB PO SCH (20:22)
[2022-01-18] MEDS: CYANOCOBALAMIN (B-12) 500 MCG TABLET PO SCH (20:22)
[2022-01-18] MEDS: ALPRAZolam 0.5 MG TABLET PO SCH (20:23)
[2022-01-18] MEDS: ASPIRIN 81 MG ECTAB PO SCH (20:23)
[2022-01-19] MEDS: ALBUT/IPRATROP 3MG/0.5MG NEB 3 ML VIAL NEB SCH ×3 (07:14→14:30)
[2022-01-19 07:29] LABS: Basophils # (auto) 0.01 K/uL (0-0.2); Basophils % (auto) 0.1 %; Hematocrit (blood only) 42.3 % (34.1-44.9); Hemoglobin 14.4 g/dl (12.0-16.0); Immature Granulocytes # (auto) 0.03 K/uL (0.00-0.02); Immature Granulocytes % (auto) 0.4 %; Lymphocytes # (auto) 2.17 K/uL (1.2-3.4); Lymphocytes % (auto) 26.3 %; Mean Corpuscular Hemoglobin 33.3 pg (25.0-34.0); Mean Corpuscular Volume 97.9 fL (80.0-100.0); Mean Platelet Volume 9.6 fL (9.4-12.3); Monocytes # (auto) 0.76 K/uL (0.24-0.82); Monocytes % (auto) 9.2 %; Neutrophils # (auto) 5.28 K/uL (1.4-6.5); Platelet Count 231 K/uL (130-400); RDW Coefficient of Variation 13.6 % (11.5-14.5); RDW Standard Deviation 49.3 fL (36.4-46.3); Red Blood Count 4.32 M/uL (3.93-5.22); White Blood Count 8.25 K/ul (4.8-10.8)
[2022-01-19 08:03] LABS: Albumin Globulin Ratio 1.7 (0.9-2); Albumin Level 3.5 gm/dl (3.4-5.0); BUN Creatinine Ratio 32.9 (10-20); Bilirubin,Total 0.4 mg/dl (0.2-1.0); Calcium 8.5 mg/dl (8.5-10.1); Creatinine Clr Calc Pharmacy 88.1 ml/min; Est GFR (African American) 97.5 ml/min; Est GFR (Non-African American) 84.2 ml/min; Globulin 2.1 gm/dl (2.5-4.0); Magnesium 2.3 mg/dl (1.7-2.4); Phosphorus 3.4 mg/dl (2.5-4.9); Potassium 4.1 mmol/L (3.5-5.1); Total Protein 5.6 gm/dl (6.0-8.3)
[2022-01-19] MEDS ORDERED: predniSONE 20 MG TAB PO SCH (09:00)
[2022-01-19] MEDS ORDERED: carvediloL 6.25 MG TAB PO SCH (09:00)
[2022-01-19] MEDS ORDERED: carvediloL 3.125 MG TAB PO SCH (09:00)
[2022-01-19] MEDS ORDERED: lisinopril 40 MG TAB PO SCH (09:00)
[2022-01-19] MEDS: NICOTINE 14 MG/24 HR PATCH TD SCH (09:07)
[2022-01-19] MEDS: amLODIPine BESYLATE 5 MG TAB PO SCH (09:09)
[2022-01-19] MEDS: ENOXAPARIN INJ 40 MG/0.4 ML SYR SQ SCH (09:14)
[2022-01-19] MEDS: ISOSORBIDE MONO EXTENDED REL 60 MG TABCR PO SCH (09:17)
[2022-01-19] MEDS: PARoxetine HCL 20 MG TAB PO SCH (09:19)
[2022-01-19] MEDS ORDERED: amLODIPine BESYLATE 5 MG TAB PO ONE (11:26)
--- NOTE | 2022-01-19 11:30 | Hospitalist Progress Note ---
Date of Service January 19, 2022 Assessment & Plan (1) Acute exacerbation of chronic obstructive pulmonary disease (COPD): Plan: - CXR with Left lower lobe pneumonia - Remains on 2 L of oxygen via nasal cannula - reportedly wears at home - IV steroids - transition to Prednisone 40mg daily for total of 5 days - continue abx for 5 days - duoneb prn - continue home inhalers - 2-step prior to discharge for home O2 requirements - will need 2L NC with ambulation (2) CAD (coronary artery disease): Plan: - Continue usual aspirin, Imdur, carvedilol, lisinopril, Crestor - no chest pain currently - monitor (3) Dyslipidemia, goal LDL below 70: Plan: - continue statin (4) Generalized anxiety disorder: Plan: - Continue usual Paxil, Xanax (5) Tobacco abuse: Plan: - Pt willing to try nicotine patch - has been cutting back over the last few days from 1 PPD to 2 cig/day - smoking cessation encouraged (6) Hypertension: Plan: - Continue usual meds per above (7) Prediabetes: Plan: - A1c 6.0% - noted (8) Delusional disorder: Plan: - noted Plan Code Status: Full Code DVT Prophylaxis: Lovenox Disposition Discharge to home when medically stable Discharge with 2L NC with ambulation. Sahil Joseph MD [facility] Medicine Admission and Anticipated Discharge Date Admission Date: January 16, 2022 Subjective Patient admitted with COPD exacerbation, started on steroids and abx. Wears oxygen at home, patient reports at night. Requiring oxygen while inpatient, has 2L NC at home. Patient reports improvement in her symptoms. Denies chest pain, shortness of breath, wheezing, n/v/d, abdominal pain, dysuria. Patient had 2 step and requiring oxygen 2L NC with ambulation Review of Systems Review of Systems: All systems reviewed & are unremarkable except as noted in Subjective Physical Exam Physical Exam: General- oriented x 3, not in distress, speaks in sentences with no effort or accessory muscle use Eyes- anicteric Neck- no JVD Lungs- CTAB, No wheezing Heart- normal rate, regular rhythm; no murmurs Abdomen- normal bowel sounds, nondistended, soft, no tenderness Extremities- no pretibial edema, no calf tenderness Neuro- alert, oriented x 3; no gross focal neurologic deficits Skin- warm & dry Results & Data Results & Data ([place]) Vital Signs (Past 12 Hours) Vital Signs Temp Pulse Pulse Pulse Pulse Pulse Pulse 01/19/22 11:00 36.6 C 77 01/19/22 09:51 92 H 84 86 87 01/19/22 09:00 58 L 01/19/22 09:00 01/19/22 07:30 36.7 C 01/19/22 07:00 56 L 01/19/22 07:15 71 01/19/22 03:00 36.8 C 71 Resp Resp Resp Resp Resp BP Pulse Ox 01/19/22 11:00 16 170/90 H 96 01/19/22 09:51 20 18 18 16 01/19/22 09:00 01/19/22 09:00 01/19/22 07:30 01/19/22 07:00 18 178/93 H 97 01/19/22 07:15 16 98 01/19/22 03:00 18 146/69 H 96 Pulse Ox Pulse Ox Pulse Ox Pulse Ox O2 Del Method O2 Flow Rate O2 Flow Rate 01/19/22 11:00 Nasal Cannula 2 01/19/22 09:51 90 86 L 90 93 2 01/19/22 09:00 01/19/22 09:00 Nasal Cannula 3 01/19/22 07:30 01/19/22 07:00 Nasal Cannula 2 01/19/22 07:15 Nasal Cannula 3 01/19/22 03:00 Nasal Cannula 3 Diagnostic Findings Laboratory Results WBC 8.25 K/ul (4.8-10.8) 01/19/22 06:41 RBC 4.32 M/uL (3.93-5.22) 01/19/22 06:41 Hgb 14.4 g/dl (12.0-16.0) 01/19/22 06:41 Hct 42.3 % (34.1-44.9) 01/19/22 06:41 MCV 97.9 fL (80.0-100.0) 01/19/22 06:41 MCH 33.3 pg (25.0-34.0) 01/19/22 06:41 MCHC 34.0 g/dL (32.0-36.0) 01/19/22 06:41 RDW Std Deviation 49.3 fL (36.4-46.3) H 01/19/22 06:41 RDW Coeff of Bryan 13.6 % (11.5-14.5) 01/19/22 06:41 Plt Count 231 K/uL (130-400) 01/19/22 06:41 MPV 9.6 fL (9.4-12.3) 01/19/22 06:41 Immature Gran % (Auto) 0.4 % 01/19/22 06:41 Neut % (Auto) 64.0 % 01/19/22 06:41 Lymph % (Auto) 26.3 % 01/19/22 06:41 [place] % (Auto) 9.2 % 01/19/22 06:41 Eos % (Auto) 0.0 % 01/19/22 06:41 Baso % (Auto) 0.1 % 01/19/22 06:41 Neut # (Auto) 5.28 K/uL (1.4-6.5) 01/19/22 06:41 Lymph # (Auto) 2.17 K/uL (1.2-3.4) 01/19/22 06:41 [place] # (Auto) 0.76 K/uL (0.24-0.82) 01/19/22 06:41 Eos # (Auto) 0.00 K/uL (0-0.50) 01/19/22 06:41 Baso # (Auto) 0.01 K/uL (0-0.2) 01/19/22 06:41 Immature Gran # (Auto) 0.03 K/uL (0.00-0.02) H 01/19/22 06:41 Toxic Vacuolation 1+ 01/16/22 05:08 Sodium 140 mmol/L (136-145) 01/19/22 06:41 Potassium 4.1 mmol/L (3.5-5.1) 01/19/22 06:41 Chloride 105 mmol/L (98-107) 01/19/22 06:41 Carbon Dioxide 30 mmol/L (21-32) 01/19/22 06:41 Anion Gap 5 (3-11) 01/19/22 06:41 BUN 23 mg/dl (6-23) 01/19/22 06:41 Creatinine 0.70 mg/dl (0.6-1.2) 01/19/22 06:41 Est Cr Clr Drug Dosing 88.1 ml/min 01/19/22 06:41 Est GFR ( Amer) 97.5 ml/min 01/19/22 06:41 Est GFR (Non-Af Amer) 84.2 ml/min 01/19/22 06:41 BUN/Creatinine Ratio 32.9 (10-20) H 01/19/22 06:41 Glucose 103 mg/dl (70-99(Fasting)) H 01/19/22 06:41 POC Glucose 100 mg/dl (70-99) H 01/19/22 10:58 Calcium 8.5 mg/dl (8.5-10.1) 01/19/22 06:41 Phosphorus 3.4 mg/dl (2.5-4.9) 01/19/22 06:41 Magnesium 2.3 mg/dl (1.7-2.4) 01/19/22 06:41 Total Bilirubin 0.4 mg/dl (0.2-1.0) 01/19/22 06:41 AST 25 U/L (13-39) 01/19/22 06:41 ALT 22 U/L (7-52) 01/19/22 06:41 Alkaline Phosphatase 38 U/L (34-104) 01/19/22 06:41 Troponin I High Sens 11.3 pg/ml (0-14) D 01/16/22 05:08 Total Protein 5.6 gm/dl (6.0-8.3) L 01/19/22 06:41 Albumin 3.5 gm/dl (3.4-5.0) 01/19/22 06:41 Globulin 2.1 gm/dl (2.5-4.0) L 01/19/22 06:41 Albumin/Globulin Ratio 1.7 (0.9-2) 01/19/22 06:41 Lipase 11 U/L (11-82) 01/16/22 05:08 Adenovirus (PCR) Not Detected (NotDetected) 01/16/22 05:08 B. pertussis DNA (PCR) Not Detected (NotDetected) 01/16/22 05:08 B.parapertussis DNA PCR Not Detected (NotDetected) 01/16/22 05:08 C. pneumoniae DNA (PCR) Not Detected (NotDetected) 01/16/22 05:08 Coronavirus OC43 (PCR) Not Detected (NotDetected) 01/16/22 05:08 Coronavirus HKU1 (PCR) Not Detected (NotDetected) 01/16/22 05:08 Coronavirus 229E (PCR) Not Detected (NotDetected) 01/16/22 05:08 SARS-CoV-2 (PCR) Not Detected (NotDetected) 01/16/22 05:08 Coronavirus NL63 (PCR) Not Detected (NotDetected) 01/16/22 05:08 Human Metapneumovir PCR Not Detected (NotDetected) 01/16/22 05:08 Influenza Type A (PCR) Not Detected (NotDetected) 01/16/22 05:08 Influenza Type B (PCR) Not Detected (NotDetected) 01/16/22 05:08 M. pneumoniae (PCR) Not Detected (NotDetected) 01/16/22 05:08 Parainfluenza 1 (PCR) Not Detected (NotDetected) 01/16/22 05:08 Parainfluenza 2 (PCR) Not Detected (NotDetected) 01/16/22 05:08 Parainfluenza 3 (PCR) Not Detected (NotDetected) 01/16/22 05:08 Parainfluenza 4 (PCR) Not Detected (NotDetected) 01/16/22 05:08 RSV (PCR) Not Detected (NotDetected) 01/16/22 05:08 Entero/Rhino (PCR) Not Detected (NotDetected) 01/16/22 05:08 Impressions Chest X-Ray 01/16/22 04:58 XR chest 1V portable CLINICAL HISTORY: sob TECHNIQUE: Single frontal radiograph of the chest was obtained. Comparison: Comparison is made to chest radiograph 11/09/2021 FINDINGS: No lines and tubes are seen. Cardiomegaly is noted. Prominence and cephalization of the vasculature is seen. There is a small focus of airspace opacity in the left lower lobe. Eventration of the diaphragm is noted in the right. No evidence of pleural effusion or pneumothorax. IMPRESSION: 1. Small left lower lung airspace opacity may represent atelectasis, pneumonia, and/or aspiration. 2. Cardiomegaly and mild pulmonary edema. ACT 112: Negative or not required by law. Electronically signed by: Cuong Alcazar M.D. 01/16/2022 12:09 PM Medications Administered Current Inpatient Medications Acetaminophen (Acetaminophen 325 Mg Tab) 650 mg PO Q4H PRN PRN Reason: Pain or Fever Stop: 02/15/22 13:23 Last Admin: 01/18/22 13:31 Dose: 650 mg Acetaminophen/Butalbital/Caffeine (Butalbital/Acetamin/Caffeine Tab) 1 tab PO Q4H PRN PRN Reason: Headache Stop: 01/20/22 15:01 Last Admin: 01/18/22 23:32 Dose: 1 tab Albuterol (Albut/Ipratrop 3mg/0.5mg Neb 3 Ml Vial) 3 ml NEB QIDR [facility]; Protocol Stop: 02/15/22 13:23 Last Admin: 01/19/22 11:17 Dose: Not Given Alprazolam (Alprazolam 0.5 Mg Tablet) 1 mg PO HS [facility] Stop: 02/15/22 20:59 Last Admin: 01/18/22 20:23 Dose: 1 mg Amlodipine Besylate (Amlodipine Besylate 5 Mg Tab) 5 mg PO QAM [facility] Stop: 02/16/22 08:59 Last Admin: 01/19/22 09:09 Dose: 5 mg Aspirin (Aspirin 81 Mg Ectab) 81 mg PO HS [facility] Stop: 02/15/22 20:59 Last Admin: 01/18/22 20:23 Dose: 81 mg Azithromycin (Azithromycin 250 Mg Tab) 500 mg PO Q24H [facility] Stop: 01/21/22 15:44 Last Admin: 01/18/22 17:51 Dose: 500 mg Carvedilol (Carvedilol 3.125 Mg Tab) 3.125 mg PO BID [facility] Stop: 02/18/22 08:59 Last Admin: 01/19/22 09:13 Dose: 3.125 mg Cyanocobalamin (Cyanocobalamin (B-12) 500 Mcg Tablet) 1,000 mcg PO HS [facility] Stop: 02/15/22 20:59 Last Admin: 01/18/22 20:22 Dose: 1,000 mcg Enoxaparin Sodium (Enoxaparin Inj 40 Mg/0.4 Ml Syr) 40 mg SQ QAM [facility] Stop: 02/16/22 08:59 Last Admin: 01/19/22 09:14 Dose: 40 mg Hydroxyzine HCl (Hydroxyzine Hcl 25 Mg Tab) 25 mg PO Q6 PRN PRN Reason: anxiety Stop: 02/17/22 15:00 Last Admin: 01/18/22 23:32 Dose: 25 mg Ceftriaxone Sodium 2,000 mg/ (Dextrose) 70 mls @ 100 mls/hr IV Q24H [facility]; Protocol Stop: 01/21/22 15:44 Last Infusion: 01/18/22 20:16 Dose: Infused Isosorbide Mononitrate (Isosorbide [place] Extended Rel 60 Mg Tabcr) 60 mg PO QAM [facility] Stop: 02/16/22 08:59 Last Admin: 01/19/22 09:17 Dose: 60 mg Lisinopril (Lisinopril 40 Mg Tab) 40 mg PO DAILY [facility] Stop: 02/18/22 08:59 Last Admin: 01/19/22 09:18 Dose: 40 mg Miscellaneous (Remove Nicoderm Patch) 1 each N/A DAILY@0859 [facility] Stop: 02/16/22 08:58 Last Admin: 01/19/22 09:09 Dose: 1 each Nicotine (Nicotine 14 Mg/24 Hr Patch) 14 mg TD QAM [facility] Stop: 02/15/22 13:29 Last Admin: 01/19/22 09:07 Dose: 14 mg Paroxetine HCl (Paroxetine Hcl 20 Mg Tab) 60 mg PO DAILY [facility] Stop: 02/16/22 08:59 Last Admin: 01/19/22 09:19 Dose: 60 mg Prednisone (Prednisone 20 Mg Tab) 40 mg PO DAILY [facility] Stop: 02/18/22 08:59 Last Admin: 01/19/22 09:20 Dose: 40 mg Rosuvastatin Calcium (Rosuvastatin Calcium 20 Mg Tab) 40 mg PO HS [facility] Stop: 02/15/22 20:59 Last Admin: 01/18/22 20:22 Dose: 40 mg (1) CAD (coronary artery disease) Coronary Disease-Associated Artery/Lesion type: [place] artery [place] vs. transplanted heart: [place] heart Associated angina: without angina Qualified Code(s): I25.10 - Atherosclerotic heart disease of [place] coronary artery without angina pectoris (2) Hypertension Hypertension type: essential hypertension Qualified Code(s): I10 - Essential (primary) hypertension
--- NOTE | 2022-01-19 14:56 | Discharge Summary ---
Date of Service January 19, 2022 Admission HPI Per Admitting Provider This is a 76 y/o female with a PMH of COPD, mild sleep apnea on O2 at , HTN, CAD with prior NSTEMI, prediabetes, hyperlipidemia, migraines, spastic dysphonia, depression, delusional disorder, prior atrial flutter s/p ablation, and anxiety presents with worsening shortness of breath and hypoxia. Pt reports that she saw PCP last week (01/12) for a routine follow-up and was feeling fine at this appointment. However, shortly after the appointment, she developed chills, fatigue, and worsening SOB, both at rest and with exertion. Her difficultly breathing has been increasing over the last few days. She woke up around 3 am today and decided to come to the ED for evaluation due to the severity of her symptoms. She wears oxygen at night at baseline (3L). She was admitted to [facility] in October with a COPD exacerbation - treated with steroids and doxycycline. It was recommended that she start using O2 with activity at home but pt reports that she has not been doing this. She has noted a cough productive of green mucus, no hemoptysis. She is wheezing even with taking inhalers as prescribed and using her albuterol inhaler "a lot" over the last few days. Initially the albuterol seemed to help but it no longer seems effective. Her entire chest and ribcage feels sore, which she attributes to the cough. Appetite is decreased with associated nausea but no vomiting or diarrhea. She has been dizzy at times and notes a PIÑA over the last two days. She reports that she has been taking her nitro multiple times over the last two days because she was anxious and thought she was dying and that the nitro might help. She denies syncope, peripheral edema, documented fever, dysuria or hematuria. She has noted neck pain and has chronic issues with back pain. She has a history of prediabetes but has not been modifying her diet and does not check her sugars. She is still smoking but reports she has cut back from 1 PPD to 2 cig per day over the last few days. She was recommended to use a nicotine patch in the past but she has not started this. In the ED, her sats have repeatedly dropped to the 80s with any exertion when off oxygen. Admission Exam Per Admitting Provider Constitutional: well developed and well nourished; no acute distress Eyes: + anicteric sclerae Neck: trachea midline Respiratory: no respiratory distress and no labored breathing Auscultation: + diminished lung sounds and + wheezes (occasional faint expiratory); no rales and no rhonchi Cardiovascular: Rate/Rhythm: regular rate and regular rhythm Vessels: dorsalis pedis pulses present and radial pulses present Extremities: no pedal edema mild diffuse chest wall tenderness Gastrointestinal (Abdomen): Inspection/Auscultation: normal bowel sounds; abdomen not distended Percussion/Palpation: abdomen soft; abdomen nontender Musculoskeletal: Head/Neck/Chest: normocephalic, head atraumatic and neck supple Skin: no jaundice Neurologic: moves all extremities; no focal motor deficits and not confused Psychiatric: Affect: + anxious affect Principal Diagnosis COPD exacerbation Discharge Exam General- oriented x 3, not in distress, speaks in sentences with no effort or accessory muscle use Eyes- anicteric Neck- no JVD Lungs- CTAB, No wheezing Heart- normal rate, regular rhythm; no murmurs Abdomen- normal bowel sounds, nondistended, soft, no tenderness Extremities- no pretibial edema, no calf tenderness Neuro- alert, oriented x 3; no gross focal neurologic deficits Skin- warm & dry Discharge Data Allergies Allergy/AdvReac Type Severity Reaction Status Date / Time No Known Allergies Allergy Verified 12/07/20 15:42 Consultations 01/16/22 09:02 ED Decision to Admit Stat Hospital Course (1) Acute exacerbation of chronic obstructive pulmonary disease (COPD): - CXR with Left lower lobe pneumonia - Remains on 2 L of oxygen via nasal cannula - reportedly wears at home - IV steroids - transition to Prednisone 40mg daily for total of 5 days - continue abx for 5 days - duoneb prn - continue home inhalers - 2-step prior to discharge for home O2 requirements - will need 2L NC with ambulation - patient ok for discharge to finish steroid and abx course with ambulatory oxygen - advised to reassess with PCP on follow up in about 1 week (2) CAD (coronary artery disease): - Continue usual aspirin, Imdur, carvedilol, lisinopril, Crestor - no chest pain currently - monitor (3) Dyslipidemia, goal LDL below 70: - continue statin (4) Generalized anxiety disorder: - Continue usual Paxil, Xanax (5) Tobacco abuse: - Pt willing to try nicotine patch - has been cutting back over the last few days from 1 PPD to 2 cig/day - smoking cessation encouraged (6) Hypertension: - Continue usual meds per above (7) Prediabetes: - A1c 6.0% - noted (8) Delusional disorder: - noted Plan Code Status: Full Code DVT Prophylaxis: Lovenox Disposition Discharge to home when medically stable Discharge with 2L NC with ambulation. Sahil Joseph MD [facility] Medicine Total Time Total Time Spent Total Time Spent (In Minutes): 27 Total Time Includes: Examination of the Patient, Discharge Planning and Medication Reconciliation Discharge Plan Discharge Items Patient Disposition: Home - Self-Care Reason For Visit: COPD EXACERBATION, HYPOXIA Discharge Diagnosis: COPD exacerbation Activity: Resume your previous activity Non-emergency contact: Primary Care Provider and Interventional Tech Call non-emergency contact if: you have any medication questions and your symptoms worsen Follow-up/Referrals: Merlin Barrios MD [Primary Care Provider] - (Date & Time 01/26/2022 10:20 AM Provider Merlin Barrios MD [facility] ) Diet: Heart Healthy Addtl Attending Provider Instructions: You were admitted for an exacerbation of your COPD. You were started on steroids, antibiotics, and breathing treatments with improvement. You were seen by physical therapy who felt you would be ok to return home on discharge. You were also seen by respiratory therapy who assessed your oxygen needs with activity. You will need 2L NC oxygen support with activity at home but should follow up with your Primary Care doctor to re assess this need in about 1 week, they can do this in the office. You should finish 2 more days of steroid and antibiotics with Augmentin. You should continue your inhalers that you take daily on discharge. Please follow up with your Primary Care doctor within 1 week of discharge. Pending Studies at Discharge: No Stand-Alone Forms: My [facility] eyefactive, Smoking Cessation Medications and DC Order Prescriptions: New ipratropium-albuterol 0.5 mg-3 mg(2.5 mg base)/3 mL Solution For Nebulization 3 ml NEB QIDR Qty: 90 0RF nicotine 7 mg/24 hr Patch 24 Hour 14 mg transdermal QAM Qty: 14 0RF prednisone 20 mg Tablet 40 mg PO DAILY Qty: 2 0RF amoxicillin-pot clavulanate 875-125 mg tablet 1 tab PO BID Qty: 4 0RF Continued fluticasone propion-salmeterol [Advair Diskus] 100-50 mcg/dose blister with device 1 inh INHALATION BID Incruse Ellipta 62.5 mcg/actuation blister with device 1 inh INHALATION DAILY alprazolam 1 mg Tablet 1 mg PO HS Qty: 10 0RF ascorbic acid (vitamin C) [Vitamin C] 1,000 mg Tablet 500 mg PO DAILY paroxetine HCl 30 mg tablet 60 mg PO DAILY omega 2-kfg-rli-fish oil [Fish Oil] 1,000 mg (120 mg-180 mg) Capsule 1 cap PO HS aspirin 81 mg Tablet,Delayed Release (Dr/Ec) 81 mg PO HS Caltrate 600 plus D 600 mg (1,500 mg)-800 unit Tablet,Chewable 1 tab PO BID sumatriptan succinate 100 mg Tablet 100 mg PO UD PRN (Reason: Migraine Headache) cyanocobalamin (vitamin B-12) 1,000 mcg Tablet 1,000 mcg PO HS nitroglycerin 0.4 mg Tablet, Sublingual 0.4 mg sublingual USEASDIRECTD PRN (Reason: Chest Pain) albuterol sulfate 90 mcg/actuation Hfa Aerosol Inhaler 2 puff INHALATION Q6H PRN (Reason: SHORT OF BREATH) rosuvastatin 40 mg tablet 40 mg PO HS amlodipine [Norvasc] 5 mg Tablet 5 mg PO QAM Qty: 30 0RF carvedilol 3.125 mg Tablet 3.125 mg PO BID Qty: 60 0RF isosorbide mononitrate 60 mg Tablet Extended Release 24 Hr 60 mg PO QAM Qty: 30 0RF Changed lisinopril 20 mg Tablet 40 mg PO DAILY Qty: 60 0RF Discharge Orders: Discharge Order (Routine); Ordered 01/19/22 Ordered By: Sahil Joseph Admission Data Admit Date/Time: 01/16/22 09:19 Attending Provider: Sahil Joseph Admit Provider: Rosa Olvera Primary Care Provider: Merlin Barrios Other Providers: Rosa Olvera
[2022-01-19] MEDS: AZITHROMYCIN 250 MG TAB PO SCH (16:20)
[2022-01-19] MEDS: cefTRIAXone SODIUM 2,000 MG in DEXTROSE 5% 50 ML IV SCH (16:25)
== END 2022-01-19 18:31 | disposition home or self-care (01) | DRG 190 ==
LOC: ED 04:50 → EDINP 09:19 → SUATTDRO 09:19 → 2S 13:13

== ENCOUNTER 2022-10-20 20:55 | Observation (INO) ==
[2022-10-20 21:34] LABS: Appearance Urine Clear (Clear); Bilirubin Urine Negative (Negative); Blood Urine Negative (Negative); Color Urine Yellow; Glucose Urine UA Negative (Negative); Ketones Urine Negative (Negative); Leukocyte Esterase Urine Negative (Negative); Nitrite Urine Negative (Negative); Protein Urine Negative (Negative); Specific Gravity Urine 1.005 (1.000-1.030); Urobilinogen Urine Negative (Negative)
[2022-10-20] MEDS ORDERED: METOCLOPRAMIDE HCL INJ 5 MG/ML 2 ML VIAL IV STA (21:35)
[2022-10-20] MEDS ORDERED: SODIUM CHLORIDE 0.9% 1000ML 500 ML IV ONE (21:35)
[2022-10-20] MEDS ORDERED: diphenhydrAMINE 50 MG/ML VIAL IV STA (21:35)
[2022-10-20 21:37] LABS: Basophils # (auto) 0.04 K/uL (0-0.2); Basophils % (auto) 0.6 %; Eosinophils # (auto) 0.98 K/uL (0-0.50); Eosinophils % (auto) 15.4 %; Hematocrit (blood only) 43.2 % (37.0-47.0); Hemoglobin 14.5 g/dl (12.0-16.0); Immature Granulocytes # (auto) 0.01 K/uL (0.01-0.20); Immature Granulocytes % (auto) 0.2 %; Lymphocytes # (auto) 2.27 K/uL (1.2-3.4); Lymphocytes % (auto) 35.7 %; Mean Corpuscular Hemoglobin 32.7 pg (25.0-34.0); Mean Corpuscular Hgb Conc 33.6 g/dL (32.0-36.0); Mean Corpuscular Volume 97.3 fL (80.0-100.0); Mean Platelet Volume 9.1 fL (9.4-12.4); Monocytes # (auto) 0.47 K/uL (0.11-0.59); Monocytes % (auto) 7.4 %; Neutrophils # (auto) 2.58 K/uL (1.40-6.50); Neutrophils % (auto) 40.7 %; Platelet Count 260 K/uL (130-400); RDW Coefficient of Variation 14.4 % (11.5-14.5); RDW Standard Deviation 51.8 fL (36.4-46.3); Red Blood Count 4.44 M/uL (4.20-5.40); White Blood Count 6.35 K/ul (4.8-10.8)
[2022-10-20 21:53] LABS: Alanine Aminotransferase 24 U/L (7-52); Albumin Globulin Ratio 1.6 (0.9-2); Albumin Level 3.9 gm/dl (3.4-5.0); Alkaline Phosphatase 52 U/L (34-104); Anion Gap 7 (3-11); Aspartate Aminotransferase 28 U/L (13-39); BUN Creatinine Ratio 21.1 (10-20); Bilirubin,Total 0.5 mg/dl (0.2-1.0); Blood Urea Nitrogen 15 mg/dl (6-23); Carbon Dioxide 28 mmol/L (21-32); Chloride 106 mmol/L (98-107); Est GFR (African American) 95.9 ml/min; Est GFR (Non-African American) 82.7 ml/min; Globulin 2.5 gm/dl (2.5-4.0); Glucose 103 mg/dl (70-99(Fasting)); Sodium 141 mmol/L (136-145); Total Protein 6.4 gm/dl (6.0-8.3)
--- NOTE | 2022-10-20 22:00 | CT Scan Report ---
CT SCAN OF THE BRAIN WITHOUT IV CONTRAST CLINICAL HISTORY: Headache. COMPARISON STUDY: CT of the brain dated 10/10/2019. TECHNIQUE: Unenhanced axial CT scan of the brain is performed from the vertex to the skull base. A do se lowering technique was utilized adhering to the principles of ALARA. CT DOSE: 703.85 mGy.cm FINDINGS: Brain parenchyma: There is age-related involutional change noting moderate subcortical and periventri cular microangiopathic disease. There is no hemorrhage, mass effect, or evidence of acute territorial ischemia by CT criteria. Garrett-white matter differentiation is preserved. No extra-axial fluid collec tion is seen. Ventricles, sulci, cisterns: Prominent secondary to involutional change. Intracranial vasculature: There is mild atherosclerotic calcification of the cavernous carotid arteri es. Calvarium: Unremarkable. Sinuses and mastoids: The visualized paranasal sinuses are clear. The mastoid air cells are well pneu matized. Orbits: The bony orbits are grossly intact. There are bilateral ocular lens implants. IMPRESSION: There is no hemorrhage, mass effect, or evidence of acute territorial ischemia by CT michael reyes. ACT 112: Negative or not required by law. Electronically signed by: Stevo Jackson M.D. 10/20/2022 9:58 PM
--- NOTE | 2022-10-20 22:04 | Emergency Department Note ---
History of Present Illness General Chief complaint: Headache Stated complaint: HEADACHE Time Seen by Provider: 10/20/22 21:22 History of Present Illness Maximum Pain Intensity: 7 This 76-year-old female presents to the ER complaining of severe headache for the past few days. Patient denies chest pain, dyspnea, numbness, tingling, localized weakness. Patient states she occasionally has some pain down the left arm. Patient states she used to have a history of migraines and nothing recent. She is tried multiple medications with no relief of symptoms. Home Medications Medication Instructions Recorded Confirmed Type ascorbic acid (vitamin C) 1,000 mg 500 mg PO DAILY 05/10/18 10/20/22 History tablet (Vitamin C) aspirin 81 mg tablet,delayed 81 mg PO HS 05/10/18 10/20/22 History release calcium carbonate 600 mg-vitamin 1 tab PO BID 05/10/18 10/20/22 History D3 20 mcg (800 unit) chewable tablet (Caltrate 600 plus D) omega [id number]-fish oil 1,000 mg 1 cap PO HS 05/10/18 10/20/22 History (120 mg-180 mg) capsule (Fish Oil) paroxetine HCl 30 mg tablet 60 mg PO DAILY 05/10/18 10/20/22 History albuterol sulfate 90 mcg/actuation 2 puff inhalation Q6H PRN SHORT OF 01/14/19 10/20/22 History aerosol inhaler BREATH cyanocobalamin (vitamin B-12) 1,000 mcg PO HS 01/14/19 10/20/22 History 1,000 mcg tablet nitroglycerin 0.4 mg sublingual 0.4 mg sublingual USEASDIRECTD PRN 01/14/19 10/20/22 History tablet Chest Pain sumatriptan succinate 100 mg tablet 100 mg PO UD PRN Migraine Headache 01/14/19 10/20/22 History rosuvastatin 40 mg tablet 40 mg PO HS 10/10/19 10/20/22 History fluticasone 100 mcg-salmeterol 50 1 inh inhalation AMHS 02/10/20 10/20/22 Hi story mcg/dose blistr powdr for inhalation (Advair Diskus) umeclidinium 62.5 mcg/actuation 1 inh inhalation DAILY 02/10/20 10/20/22 History blister powder for inhalation (Incruse Ellipta) alprazolam 1 mg tablet 1 mg PO HS #10 tabs 02/18/20 10/20/22 Rx amlodipine 5 mg tablet (Norvasc) 5 mg PO QAM #30 tabs 11/14/21 10/20/22 Rx carvedilol 3.125 mg tablet 3.125 mg PO BID #60 tabs 11/14/21 10/20/22 Rx isosorbide mononitrate 60 mg 60 mg PO QAM #30 tabs 11/14/21 10/20/22 Rx tablet,extended release 24 hr ipratropium 0.5 mg-albuterol 3 mg 3 ml NEB QIDR #90 mL 01/19/22 10/20/22 Rx (2.5 mg base)/3 mL nebulization soln gabapentin 300 mg capsule 300 mg PO BID PRN arm,leg pain 10/20/22 10/20/22 History lisinopril 40 mg tablet 40 mg PO QAM 10/20/22 10/20/22 History Allergies Allergy/AdvReac Type Severity Reaction Status Date / Time No Known Allergies Allergy Verified 10/20/22 23:13 Past Med/Surg History Medical History Acute exacerbation of chronic obstructive pulmonary disease (COPD) Anxiety and depression Atrial flutter s/p ablation 05/2017. Follows with [facility] cardio. CAD (coronary artery disease) Nonobstructive by 2018 cardiac cath. NSTEMI ruled 2/2 coronary spasm. COPD (chronic obstructive pulmonary disease) 2.5 LPM VIA N/C ONLY AT HS. Advair daily, rarely using rescue inhaler, ~ 3x per month Continues to smoke 1ppd COVID-19 Degenerative disc disease Hyperlipidemia Hypertension Migraines Myocardial Infarction NSTEMI 04/2018 [facility] NSTEMI (non-ST elevated myocardial infarction) On home oxygen therapy 2.5L AT HS Osteoarthritis Prediabetes Sleep apnea "MILD" ONLY WEARS O2 AT 2.5L AT HS Tear of lateral meniscus of right knee Tear of medial meniscus of right knee Surgical History History of breast biopsy History of cardiac cath 04/2018 for NSTEMI, Nonobstructive moderate proximal to mid LAD disease. History of cardiac radiofrequency ablation 2018 History of section X 2 History of colonoscopy History of dilatation and curettage History of discectomy LUMBAR History of eye surgery RT EYE (CAN'T REMEMBER WHAT FOR) History of laparoscopy 2/2 endometriosis History of open reduction and internal fixation (ORIF) procedure RT ANKLE History of tooth extraction Family History Father Hypertension Brother Diabetes Depression Family history of diabetes mellitus Sister Depression Family history of diabetes mellitus Social History Smoking Status: Current every day smoker Tobacco Type: Cigarettes Cigarettes Per Day: 10; Second Hand Exposure: No; Do You Dip or Chew Tobacco: No; Hx Alcohol Use: Yes Alcohol type: hard liquor Hx Substance Use: No Preferred Language: Maltese Communication Ability: Effective Communication Ability Comment: Inhibited only by SOB. Visual Impairment: No Limitations Hearing Ability: Normal Traffic Control Supervisor Required: No Beliefs That Will Affect Care: None marital status: Current Living Situation: Alone How many Children do You have: 2 Feels Safe at Home: Yes Assistive Devices: Cane and Walker Review of Systems A total of 10 systems reviewed and were otherwise negative Physical Exam Vital Signs Vital Signs - 24 hr 10/20/22 21:02 10/20/22 21:02 10/20/22 21:41 Temperature 36.9 C 36.9 C Temperature Source Oral Oral Pulse Rate 60 60 Pulse Rate [Apical] Pulse Rate from SpO2 Sensor Respiratory Rate 16 15 Respiratory Effort / Characteristics Respiratory Depth Blood Pressure 191/97 H Blood Pressure [Left Arm] Blood Pressure Mean 128 Blood Pressure Mean [Left Arm] Pulse Oximetry 94 Oxygen Delivery Method Room Air Oxygen Flow Rate Sepsis Recent Fever Within 48 Hours No Sepsis New/Unexplained Change in Mental Status N/A Sepsis Action Taken by Nursing No Action Required Oxygen Flow Rate - Titration Pulse Oximetry Post Tiitration 10/20/22 21:40 10/20/22 21:55 10/20/22 22:00 Temperature Temperature Source Pulse Rate 60 63 59 L Pulse Rate [Apical] Pulse Rate from SpO2 Sensor 60 62 60 Respiratory Rate 16 15 21 Respiratory Effort / Characteristics Respiratory Depth Blood Pressure Blood Pressure [Left Arm] Blood Pressure Mean Blood Pressure Mean [Left Arm] Pulse Oximetry 90 93 92 Oxygen Delivery Method Oxygen Flow Rate Sepsis Recent Fever Within 48 Hours Sepsis New/Unexplained Change in Mental Status Sepsis Action Taken by Nursing Oxygen Flow Rate - Titration Pulse Oximetry Post Tiitration 10/20/22 22:10 10/20/22 22:20 10/20/22 22:30 Temperature Temperature Source Pulse Rate 61 61 59 L Pulse Rate [Apical] Pulse Rate from SpO2 Sensor 64 59 L 60 Respiratory Rate 16 17 17 Respiratory Effort / Characteristics Respiratory Depth Blood Pressure Blood Pressure [Left Arm] Blood Pressure Mean Blood Pressure Mean [Left Arm] Pulse Oximetry 91 94 90 Oxygen Delivery Method Oxygen Flow Rate Sepsis Recent Fever Within 48 Hours Sepsis New/Unexplained Change in Mental Status Sepsis Action Taken by Nursing Oxygen Flow Rate - Titration Pulse Oximetry Post Tiitration 10/20/22 23:00 10/20/22 23:21 10/20/22 22:50 Temperature Temperature Source Pulse Rate 65 Pulse Rate [Apical] 63 Pulse Rate from SpO2 Sensor 64 Respiratory Rate 20 16 Respiratory Effort / Characteristics Non-Labored Spontaneous Respiratory Depth Normal Blood Pressure 159/77 H Blood Pressure [Left Arm] 159/77 H Blood Pressure Mean 104 Blood Pressure Mean [Left Arm] 104 Pulse Oximetry 92 88 L 94 Oxygen Delivery Method Room Air Room Air Nasal Cannula Oxygen Flow Rate 0 Sepsis Recent Fever Within 48 Hours Sepsis New/Unexplained Change in Mental Status Sepsis Action Taken by Nursing Oxygen Flow Rate - Titration 2.5 Pulse Oximetry Post Tiitration 95 10/20/22 23:00 10/20/22 23:10 10/20/22 23:20 Temperature Temperature Source Pulse Rate 62 69 68 Pulse Rate [Apical] Pulse Rate from SpO2 Sensor 61 67 65 Respiratory Rate 13 20 16 Respiratory Effort / Characteristics Respiratory Depth Blood Pressure Blood Pressure [Left Arm] Blood Pressure Mean Blood Pressure Mean [Left Arm] Pulse Oximetry 91 92 94 Oxygen Delivery Method Oxygen Flow Rate Sepsis Recent Fever Within 48 Hours Sepsis New/Unexplained Change in Mental Status Sepsis Action Taken by Nursing Oxygen Flow Rate - Titration Pulse Oximetry Post Tiitration 10/20/22 23:30 10/20/22 23:40 10/20/22 23:49 Temperature Temperature Source Pulse Rate 62 66 63 Pulse Rate [Apical] Pulse Rate from SpO2 Sensor 63 69 63 Respiratory Rate 15 15 16 Respiratory Effort / Characteristics Respiratory Depth Blood Pressure 173/81 H Blood Pressure [Left Arm] Blood Pressure Mean 111 Blood Pressure Mean [Left Arm] Pulse Oximetry 94 95 95 Oxygen Delivery Method Oxygen Flow Rate Sepsis Recent Fever Within 48 Hours Sepsis New/Unexplained Change in Mental Status Sepsis Action Taken by Nursing Oxygen Flow Rate - Titration Pulse Oximetry Post Tiitration 10/21/22 00:37 10/21/22 00:40 10/21/22 00:44 Temperature Temperature Source Pulse Rate Pulse Rate [Apical] Pulse Rate from SpO2 Sensor 61 63 61 Respiratory Rate Respiratory Effort / Characteristics Respiratory Depth Blood Pressure 191/97 H 163/91 H Blood Pressure [Left Arm] Blood Pressure Mean 128 115 Blood Pressure Mean [Left Arm] Pulse Oximetry 96 95 94 Oxygen Delivery Method Oxygen Flow Rate Sepsis Recent Fever Within 48 Hours Sepsis New/Unexplained Change in Mental Status Sepsis Action Taken by Nursing Oxygen Flow Rate - Titration Pulse Oximetry Post Tiitration 10/21/22 00:50 10/21/22 01:00 10/21/22 01:10 Temperature Temperature Source Pulse Rate Pulse Rate [Apical] Pulse Rate from SpO2 Sensor 59 L 58 L 59 L Respiratory Rate Respiratory Effort / Characteristics Respiratory Depth Blood Pressure 168/80 H Blood Pressure [Left Arm] Blood Pressure Mean 109 Blood Pressure Mean [Left Arm] Pulse Oximetry 95 94 94 Oxygen Delivery Method Oxygen Flow Rate Sepsis Recent Fever Within 48 Hours Sepsis New/Unexplained Change in Mental Status Sepsis Action Taken by Nursing Oxygen Flow Rate - Titration Pulse Oximetry Post Tiitration 10/21/22 01:20 10/21/22 01:30 10/21/22 01:40 Temperature Temperature Source Pulse Rate Pulse Rate [Apical] Pulse Rate from SpO2 Sensor 62 60 57 L Respiratory Rate Respiratory Effort / Characteristics Respiratory Depth Blood Pressure 183/89 H Blood Pressure [Left Arm] Blood Pressure Mean 120 Blood Pressure Mean [Left Arm] Pulse Oximetry 94 95 95 Oxygen Delivery Method Oxygen Flow Rate Sepsis Recent Fever Within 48 Hours Sepsis New/Unexplained Change in Mental Status Sepsis Action Taken by Nursing Oxygen Flow Rate - Titration Pulse Oximetry Post Tiitration 10/21/22 01:50 10/21/22 02:00 10/21/22 02:01 Temperature Temperature Source Pulse Rate Pulse Rate [Apical] Pulse Rate from SpO2 Sensor 58 L 75 61 Respiratory Rate Respiratory Effort / Characteristics Respiratory Depth Blood Pressure 160/100 H Blood Pressure [Left Arm] Blood Pressure Mean 120 Blood Pressure Mean [Left Arm] Pulse Oximetry 96 96 94 Oxygen Delivery Method Oxygen Flow Rate Sepsis Recent Fever Within 48 Hours Sepsis New/Unexplained Change in Mental Status Sepsis Action Taken by Nursing Oxygen Flow Rate - Titration Pulse Oximetry Post Tiitration 10/21/22 02:10 10/21/22 02:20 Temperature Temperature Source Pulse Rate Pulse Rate [Apical] Pulse Rate from SpO2 Sensor 61 57 L Respiratory Rate Respiratory Effort / Characteristics Respiratory Depth Blood Pressure Blood Pressure [Left Arm] Blood Pressure Mean Blood Pressure Mean [Left Arm] Pulse Oximetry 95 95 Oxygen Delivery Method Oxygen Flow Rate Sepsis Recent Fever Within 48 Hours Sepsis New/Unexplained Change in Mental Status Sepsis Action Taken by Nursing Oxygen Flow Rate - Titration Pulse Oximetry Post Tiitration VITALS: Vitals are noted on the nurse's note and reviewed by myself. Vital signs stable. GENERAL: Pleasant female following commands, in no acute distress, nondiaphoretic, well-developed well-nourished. SKIN: The skin was without rashes, erythema, edema, or bruising. There is no tenting of the skin. Capillary reflex less than 2 seconds. HEAD: Normocephalic atraumatic. EARS: External auditory canals clear, tympanic membranes pearly garrett without erythema or effusion bilaterally. EYES: Pupils equal round and reactive to light and accommodation. Conjunctivae without injection, sclerae without icterus. Extraocular movements intact. NOSE: Patent, turbinates without inflammation or discharge. No sinus tenderness. MOUTH: Mucous membranes moist. Pharynx without erythema or exudate. Uvula midline. Airway patent. Tongue does not deviate. NECK: Supple without nuchal rigidity. No lymphadenopathy. No thyromegaly. Cervical spine is nontender. No JVD. HEART: Regular rate and rhythm LUNGS: Clear to auscultation bilaterally without wheezes, rales or rhonchi. No retractions or accessory muscle use. ABDOMEN: Positive bowel sounds x 4. Normal tympanic percussion. Soft, nontender, without masses or organomegaly. Kim sign negative. No guarding or rebound tenderness. No CVA tenderness MUSCULOSKELETAL: No muscle atrophy, erythema, or edema noted. NEURO: Patient was alert and oriented to person place and time. Normal sensation to light and sharp touch. Cranial nerves II through XII grossly intact. No pronator drift. Cerebellar exam intact. No focal neurological deficits. Course Administered Medications Discontinued Medications Dexamethasone Sodium Phosphate (DexamethasonePf 10 Mg/Ml Vial) 10 mg IV NOW ONE Stop: 10/21/22 00:17 Last Admin: 10/21/22 00:30 Dose: 10 mg Documented By: DILLAN Diphenhydramine HCl (Diphenhydramine 50 Mg/Ml Vial) 12.5 mg IV NOW STA Stop: 10/20/22 21:36 Last Admin: 10/20/22 22:20 Dose: 12.5 mg Documented By: NOAH Sodium Chloride (Nss 1000ml) 500 mls @ 999 mls/hr IV .Q31M ONE Stop: 10/20/22 22:05 Last Infusion: 10/20/22 22:55 Dose: 0 mls/hr Documented By: Admin: 10/20/22 22:20 Dose: 999 mls/hr Documented By: NOAH Acetaminophen (Ofirmev) 1,000 mg in 100 mls @ 400 mls/hr IV NOW STA Stop: 10/20/22 23:09 Last Infusion: 10/20/22 23:21 Dose: 0 mls/hr Documented By: Admin: 10/20/22 23:01 Dose: 400 mls/hr Documented By: DILLAN Magnesium Sulfate/Dextrose (Magnesium Sulfate / D5w) 1 gm in 100 mls @ 100 mls/hr IV NOW STA Stop: 10/21/22 01:16 Last Infusion: 10/21/22 01:42 Dose: 0 mls/hr Documented By: Admin: 10/21/22 00:30 Dose: 100 mls/hr Documented By: DILLAN Ioversol (Ioversol 350 Mg 125ml Prefilled Syringe) 117 ml IV ONCE ONE Stop: 10/21/22 00:11 Last Admin: 10/21/22 00:10 Dose: 117 ml Documented By: AMOR Ketorolac Tromethamine (Ketorolac Tromethamine 15 Mg/Ml Vial) 10 mg IV NOW STA Stop: 10/21/22 00:17 Last Admin: 10/21/22 00:30 Dose: 10 mg Documented By: DILLAN Lorazepam (Lorazepam 2 Mg/1 Ml Vial) 0.5 mg IV NOW STA Stop: 10/20/22 22:56 Last Admin: 10/20/22 23:01 Dose: 0.5 mg Documented By: DILLAN Metoclopramide HCl (Metoclopramide Hcl Inj 5 Mg/Ml 2 Ml Vial) 10 mg IV NOW STA Stop: 10/20/22 21:36 Last Admin: 10/20/22 22:20 Dose: 10 mg Documented By: NOAH Morphine Sulfate (Morphine Sulfate 4 Mg/Ml 1 Ml Carp\\Vial) 4 mg IV NOW STA Stop: 10/21/22 01:40 Last Admin: 10/21/22 01:52 Dose: 4 mg Documented By: DILLAN Medical Decision Making Medical Records Attestation: I reviewed the patient's medical records. Home Medications Current Medication List: was personally reviewed by me Laboratory Data Attestation: I reviewed the patient's lab results. 10/20/22 21:10 10/20/22 21:10 Lab Results 10/20/22 10/20/22 10/20/22 Range/Units 21:10 21:10 21:10 WBC 6.35 (4.8-10.8) K/ul RBC 4.44 (4.20-5.40) M/uL Hgb 14.5 (12.0-16.0) g/dl Hct 43.2 (37.0-47.0) % MCV 97.3 (80.0-100.0) fL MCH 32.7 (25.0-34.0) pg MCHC 33.6 (32.0-36.0) g/dL RDW Std Deviation 51.8 H (36.4-46.3) fL RDW Coeff of Bryan 14.4 (11.5-14.5) % Plt Count 260 (130-400) K/uL MPV 9.1 L (9.4-12.4) fL Immature Gran % (Auto) 0.2 % Neut % (Auto) 40.7 % Lymph % (Auto) 35.7 % [place] % (Auto) 7.4 % Eos % (Auto) 15.4 % Baso % (Auto) 0.6 % Neut # (Auto) 2.58 (1.40-6.50) K/uL Lymph # (Auto) 2.27 (1.2-3.4) K/uL [place] # (Auto) 0.47 (0.11-0.59) K/uL Eos # (Auto) 0.98 H (0-0.50) K/uL Baso # (Auto) 0.04 (0-0.2) K/uL Immature Gran # (Auto) 0.01 (0.01-0.20) K/uL Sodium 141 (136-145) mmol/L Potassium 4.0 (3.5-5.1) mmol/L Chloride 106 (98-107) mmol/L Carbon Dioxide 28 (21-32) mmol/L Anion Gap 7 (3-11) BUN 15 (6-23) mg/dl Creatinine 0.71 (0.6-1.2) mg/dl Est Cr Clr Drug Dosing Not Reportable Est GFR ( Amer) 95.9 ml/min Est GFR (Non-Af Amer) 82.7 ml/min BUN/Creatinine Ratio 21.1 H (10-20) Glucose 103 H (70-99(Fasting)) mg/dl Calcium 9.0 (8.6-10.3) mg/dl Magnesium 2.1 (1.7-2.4) mg/dl Total Bilirubin 0.5 (0.2-1.0) mg/dl AST 28 (13-39) U/L ALT 24 (7-52) U/L Alkaline Phosphatase 52 (34-104) U/L Troponin I High Sens 7.7 (0-14) pg/ml Total Protein 6.4 (6.0-8.3) gm/dl Albumin 3.9 (3.4-5.0) gm/dl Globulin 2.5 (2.5-4.0) gm/dl Albumin/Globulin Ratio 1.6 (0.9-2) Urine Color Yellow Urine Appearance Clear (Clear) Urine pH 7.0 (4.5-7.5) Ur Specific [place] 1.005 (1.000-1.030) Urine Protein Negative (Negative) Urine Glucose (UA) Negative (Negative) Urine Ketones Negative (Negative) Urine Blood Negative (Negative) Urine Nitrite Negative (Negative) Urine Bilirubin Negative (Negative) Urine Urobilinogen Negative (Negative) Ur Leukocyte Esterase Negative (Negative) Lyme Disease IgG Ab (Negative) Lyme Disease IgM Ab (Negative) 10/20/22 Range/Units 21:10 WBC (4.8-10.8) K/ul RBC (4.20-5.40) M/uL Hgb (12.0-16.0) g/dl Hct (37.0-47.0) % MCV (80.0-100.0) fL MCH (25.0-34.0) pg MCHC (32.0-36.0) g/dL RDW Std Deviation (36.4-46.3) fL RDW Coeff of Bryan (11.5-14.5) % Plt Count (130-400) K/uL MPV (9.4-12.4) fL Immature Gran % (Auto) % Neut % (Auto) % Lymph % (Auto) % [place] % (Auto) % Eos % (Auto) % Baso % (Auto) % Neut # (Auto) (1.40-6.50) K/uL Lymph # (Auto) (1.2-3.4) K/uL [place] # (Auto) (0.11-0.59) K/uL Eos # (Auto) (0-0.50) K/uL Baso # (Auto) (0-0.2) K/uL Immature Gran # (Auto) (0.01-0.20) K/uL Sodium (136-145) mmol/L Potassium (3.5-5.1) mmol/L Chloride (98-107) mmol/L Carbon Dioxide (21-32) mmol/L Anion Gap (3-11) BUN (6-23) mg/dl Creatinine (0.6-1.2) mg/dl Est Cr Clr Drug Dosing Est GFR ( Amer) ml/min Est GFR (Non-Af Amer) ml/min BUN/Creatinine Ratio (10-20) Glucose (70-99(Fasting)) mg/dl Calcium (8.6-10.3) mg/dl Magnesium (1.7-2.4) mg/dl Total Bilirubin (0.2-1.0) mg/dl AST (13-39) U/L ALT (7-52) U/L Alkaline Phosphatase (34-104) U/L Troponin I High Sens (0-14) pg/ml Total Protein (6.0-8.3) gm/dl Albumin (3.4-5.0) gm/dl Globulin (2.5-4.0) gm/dl Albumin/Globulin Ratio (0.9-2) Urine Color Urine Appearance (Clear) Urine pH (4.5-7.5) Ur Specific [place] (1.000-1.030) Urine Protein (Negative) Urine Glucose (UA) (Negative) Urine Ketones (Negative) Urine Blood (Negative) Urine Nitrite (Negative) Urine Bilirubin (Negative) Urine Urobilinogen (Negative) Ur Leukocyte Esterase (Negative) Lyme Disease IgG Ab Negative (Negative) Lyme Disease IgM Ab Negative (Negative) Imaging Data Attestation: I personally reviewed and interpreted this imaging study as follows: Radiologist's Impression: Head CT 10/20/22 21:35 CT SCAN OF THE BRAIN WITHOUT IV CONTRAST CLINICAL HISTORY: Headache. COMPARISON STUDY: CT of the brain dated 10/10/2019. TECHNIQUE: Unenhanced axial CT scan of the brain is performed from the vertex to the skull base. A dose lowering technique was utilized adhering to the principles of ALARA. CT DOSE: 703.85 mGy.cm FINDINGS: Brain parenchyma: There is age-related involutional change noting moderate subcortical and periventricular microangiopathic disease. There is no hemorrhage, mass effect, or evidence of acute territorial ischemia by CT criteria. Garrett-white matter differentiation is preserved. No extra-axial fluid collection is seen. Ventricles, sulci, cisterns: Prominent secondary to involutional change. Intracranial vasculature: There is mild atherosclerotic calcification of the cavernous carotid arteries. Calvarium: Unremarkable. Sinuses and mastoids: The visualized paranasal sinuses are clear. The mastoid air cells are well pneumatized. Orbits: The bony orbits are grossly intact. There are bilateral ocular lens implants. IMPRESSION: There is no hemorrhage, mass effect, or evidence of acute territorial ischemia by CT criteria. ACT 112: Negative or not required by law. Electronically signed by: Stevo Jackson M.D. 10/20/2022 9:58 PM Chest X-Ray 10/20/22 21:36 SINGLE VIEW CHEST CLINICAL HISTORY: Generalized weakness. FINDINGS: An AP, portable, upright chest radiograph is compared to study dated 06/13/2022. Correlation is made with chest CT dated 05/10/2018. The heart is enlarged. The pulmonary vasculature is noncongested. Chronic interstitial thickening is similar to previous. Scarring/atelectasis is noted at the lung bases. The lungs and pleural spaces are otherwise clear. No pneumothorax is seen. The skeletal structures are osteopenic. The bony thorax is grossly intact. IMPRESSION: No acute cardiopulmonary abnormality. ACT 112: Negative or not required by law. Electronically signed by: Stevo Jackson M.D. 10/20/2022 10:27 PM Head CTA 10/20/22 22:57 Exam(s): CTA HEAD With Contrast IV Amt: 117 cc's EXAM: CT Angiography Head With Intravenous Contrast CLINICAL HISTORY: Severe headache. TECHNIQUE: Axial computed tomographic angiography images of the head with intravenous contrast. Automated exposure control was utilized for the study. A dose lowering technique was utilized adhering to the principles of ALARA. MIP reconstructed images were created and reviewed. CONTRAST: Patient received 117 cc's of IV contrast COMPARISON: No relevant prior studies available. FINDINGS: Right internal carotid artery: No acute findings. Intracranial segment is patent with no significant stenosis. No aneurysm. Right anterior cerebral artery: Unremarkable. No occlusion or significant stenosis. No aneurysm. Right middle cerebral artery: Unremarkable. No occlusion or significant stenosis. No aneurysm. Right posterior cerebral artery: Unremarkable. No occlusion or significant stenosis. No aneurysm. Right vertebral artery: Unremarkable as visualized. Left internal carotid artery: No acute findings. Intracranial segment is patent with no significant stenosis. No aneurysm. Left anterior cerebral artery: Unremarkable. No occlusion or significant stenosis. No aneurysm. Left middle cerebral artery: Unremarkable. No occlusion or significant stenosis. No aneurysm. Left posterior cerebral artery: Unremarkable. No occlusion or significant stenosis. No aneurysm. Left vertebral artery: Unremarkable as visualized. Basilar artery: Unremarkable. No occlusion or significant stenosis. No aneurysm. IMPRESSION: No acute finding of the arteries of the head. Electronically signed by: Britney Leahy MD 10/21/22 02:16 AM [facility] Narrative Prior records/ancillary studies reviewed. Additional history obtained from nursing. Triage Nursing notes reviewed. The patient's history was concerning for headache. Differential diagnosis: Etiologies such as migraine headache, meningitis, sinusitis, CO exposure, ICH, SAH, infection, tumor, headache, sinus thrombosis, arterial dissection, as well as others were entertained. Physical examination findings: As above. Non-focal. ER treatment provided: Reglan Benadryl IV fluids ordered Ativan and Tylenol was ordered Toradol Decadron and magnesium was ordered On reassessment the patient felt better. Diagnostics interpreted by me: ECG: Ordered for weakness EKG: Normal sinus, normal intervals, T wave inversion in aVL, no other acute ST changes. Impression sinus bradycardia independently interpreted by myself and unchanged from prior I think arrhythmia is unlikely. EKG shows normal sinus rhythm with no interval abnormalities such as QT prolongation or WPW. There are no findings to suggest Brugada syndrome. Cardiac monitoring in the emergency department reveals no tachycardic or bradycardic dysrhythmia. Hypertrophic cardiomyopathy was considered but there are no clear historical elements pointing toward this. EKG is not suggestive. The QRS voltage is not extremely large and there are no suggestive Q waves. The labs Independently Interpreted by myself revealed no worrisome leukocytosis, stable H&H, Negative urine Imaging studies: Head CT negative for intracranial bleed per my independent interpretation And report was reviewed as above. Chest x-ray with no acute consolidation, pneumothorax or free air per my independent interpretation CTA of the head negative for bleed per my independent interpretation. Report was reviewed as above. Consultation: A consultation was placed with the hospitalist. The case was discussed and diagnostics were reviewed. The patient was evaluated in the ER for further treatment. This appears to be consistent with intractable headache. Patient was given multiple rounds of pain meds and still having severe headache. Labs and diagnostics were independent turbid by myself. Imaging was negative. Medicine is consulted and the case was discussed. She will be admitted for the intractable migraine. Patient's had a headache for a week. No signs of meningitis. She was afebrile nontoxic. She was neurovascularly and neurologically intact. By the evaluation outlined above emergent etiologies such as meningitis, sinusitis, CO exposure, ICH, SAH, infection, temporal arteri tis, tumor, sinus thrombosis, arterial dissection, as well as others were deemed relatively unlikely. The pt informed about the findings as listed above. All questions were answered and pleased with the treatment. The chart was completed utilizing [employer] Speech voice recognition software. Grammatical errors, random word insertions, pronoun errors, and incomplete sentences are an occassional consequence of this system due to software limitations, ambient noise, and hardware issues. Any formal questions or concerns about the content, text, or information contained within the body of t his dictation should be directly addressed to the physician bricklayer's assistant for clarification. Impression & Plan Acute intractable headache Discharge Plan Visit Data Chief Complaint: Headache Stated Complaint: HEADACHE ED Provider: Angelo Robles ED Midlevel Provider: Meghan Breen Discharge Problem: Acute intractable headache Patient Disposition: Being Evaluated by Hospitalist Condition: Good Forms Stand Alone Forms: [employer] Prescriptions Prescriptions: No Action fluticasone propion-salmeterol [Advair Diskus] 100-50 mcg/dose blister with device 1 inh INHALATION AMHS Incruse Ellipta 62.5 mcg/actuation blister with device 1 inh INHALATION DAILY alprazolam 1 mg Tablet 1 mg PO HS Qty: 10 0RF ascorbic acid (vitamin C) [Vitamin C] 1,000 mg Tablet 500 mg PO DAILY paroxetine HCl 30 mg tablet 60 mg PO DAILY omega 8-chr-fig-fish oil [Fish Oil] 1,000 mg (120 mg-180 mg) Capsule 1 cap PO HS aspirin 81 mg Tablet,Delayed Release (Dr/Ec) 81 mg PO HS Caltrate 600 plus D 600 mg (1,500 mg)-800 unit Tablet,Chewable 1 tab PO BID sumatriptan succinate 100 mg Tablet 100 mg PO UD PRN (Reason: Migraine Headache) cyanocobalamin (vitamin B-12) 1,000 mcg Tablet 1,000 mcg PO HS nitroglycerin 0.4 mg Tablet, Sublingual 0.4 mg sublingual USEASDIRECTD PRN (Reason: Chest Pain) albuterol sulfate 90 mcg/actuation Hfa Aerosol Inhaler 2 puff INHALATION Q6H PRN (Reason: SHORT OF BREATH) rosuvastatin 40 mg tablet 40 mg PO HS amlodipine [Norvasc] 5 mg Tablet 5 mg PO QAM Qty: 30 0RF carvedilol 3.125 mg Tablet 3.125 mg PO BID Qty: 60 0RF isosorbide mononitrate 60 mg Tablet Extended Release 24 Hr 60 mg PO QAM Qty: 30 0RF ipratropium-albuterol 0.5 mg-3 mg(2.5 mg base)/3 mL Solution For Nebulization 3 ml NEB QIDR Qty: 90 0RF gabapentin 300 mg capsule 300 mg PO BID PRN (Reason: arm,leg pain) lisinopril 40 mg tablet 40 mg PO QAM Referrals Referrals: Merlin Barrios MD [Primary Care Provider] - Acute intractable headache Qualifiers: Headache type: tension-type Qualified Code(s): G44.201 - Tension-type headache, unspecified, intractable
--- NOTE | 2022-10-20 22:28 | XRay Report ---
SINGLE VIEW CHEST CLINICAL HISTORY: Generalized weakness. FINDINGS: An AP, portable, upright chest radiograph is compared to study dated 06/13/2022. Correlation is made with chest CT dated 05/10/2018. The heart is enlarged. The pulmonary vasculature is nonconges lucas. Chronic interstitial thickening is similar to previous. Scarring/atelectasis is noted at the melissa g bases. The lungs and pleural spaces are otherwise clear. No pneumothorax is seen. The skeletal stru ctures are osteopenic. The bony thorax is grossly intact. IMPRESSION: No acute cardiopulmonary abnormality. ACT 112: Negative or not required by law. Electronically signed by: Stevo Jackson M.D. 10/20/2022 10:27 PM
[2022-10-20 22:50] LABS: Magnesium 2.1 mg/dl (1.7-2.4)
[2022-10-20] MEDS ORDERED: LORazepam 2 MG/1 ML VIAL IV STA (22:55)
[2022-10-20] MEDS ORDERED: ACETAMINOPHEN 1,000 MG/100 ML VIAL IV STA (22:55)
[2022-10-20 22:57] LABS: Troponin I High Sensitivity 7.7 pg/ml (0-14)
[2022-10-20 23:20] LABS: Lyme Ab IgG w/WB Rflx Negative (Negative); Lyme Ab IgM w/WB Rflx Negative (Negative)
[2022-10-21] MEDS ORDERED: IOVERSOL 350 MG 125mL Prefilled Syringe IV ONE (00:10)
[2022-10-21] MEDS ORDERED: KETOROLAC TROMETHAMINE 15 MG/ML VIAL IV STA (00:16)
[2022-10-21] MEDS ORDERED: dexAMETHasone**PF** 10 MG/ML VIAL IV ONE (00:16)
[2022-10-21] MEDS ORDERED: MAGNESIUM SULFATE / D5W 1 GM/100 ML BAG IV STA (00:17)
--- NOTE | 2022-10-21 01:38 | Emergency Department Note ---
ED Visit Note Physician Evaluation Note: I have personally evaluated and examined this patient. I agree with assessment and plan of Jeri Breen PA-C. 76-year-old female who has had a gradually onset headache for the last week. No other symptoms or inciting events. She notes the headache is throbbing and diffuse. She notes it is so bad she is having trouble getting around her house. Denies any neck stiffness, neurologic deficits, fevers, chills, nausea, vomiting or other concerning signs or symptoms. She has received an extensive cocktail of medications while here in the ER without really any improvement in her pain. At this point will start small dose IV narcotic and consult hospitalist given the persistent headache. She has a CT head is negative and a CT angio which is pending. Normal white blood cell count no fever and no nuchal rigidity I think LP would not be indicated at this point. Angelo Robles MD
[2022-10-21] MEDS ORDERED: MoRPHine SULFATE 4 MG/ML 1 ML CARP\\VIAL IV STA (01:39)
--- NOTE | 2022-10-21 02:17 | CT Scan Report ---
Exam(s): CTA HEAD With Contrast IV Amt: 117 cc's EXAM: CT Angiography Head With Intravenous Contrast CLINICAL HISTORY: Severe headache. TECHNIQUE: Axial computed tomographic angiography images of the head with intravenous contrast. Automated exposure control was utilized for the study. A dose lowering technique was utilized adhering to the principles of ALARA. MIP reconstructed images were created and reviewed. CONTRAST: Patient received 117 cc's of IV contrast COMPARISON: No relevant prior studies available. FINDINGS: Right internal carotid artery: No acute findings. Intracranial segment is patent with no significant stenosis. No aneurysm. Right anterior cerebral artery: Unremarkable. No occlusion or significant stenosis. No aneurysm. Right middle cerebral artery: Unremarkable. No occlusion or significant stenosis. No aneurysm. Right posterior cerebral artery: Unremarkable. No occlusion or significant stenosis. No aneurysm. Right vertebral artery: Unremarkable as visualized. Left internal carotid artery: No acute findings. Intracranial segment is patent with no significant stenosis. No aneurysm. Left anterior cerebral artery: Unremarkable. No occlusion or significant stenosis. No aneurysm. Left middle cerebral artery: Unremarkable. No occlusion or significant stenosis. No aneurysm. Left posterior cerebral artery: Unremarkable. No occlusion or significant stenosis. No aneurysm. Left vertebral artery: Unremarkable as visualized. Basilar artery: Unremarkable. No occlusion or significant stenosis. No aneurysm. IMPRESSION: No acute finding of the arteries of the head. Electronically signed by: Britney Leahy MD 10/21/22 02:16 AM
--- NOTE | 2022-10-21 03:18 | History & Physical Report ---
Date of Service October 21, 2022 Assessment & Plan (1) Acute intractable headache: Plan: 76-year-old female presents intractable headache. Intractable headache History of migraines Going on for the last 2 weeks but OTC meds and sumatriptan not helping In the ER received extensive medications which did not help But states morphine helped CT head and CTA head unremarkable Will admit to hospital Pain control with IV Dilaudid as needed, IV fluids, clear liquid diet as patient has nausea Consult neurology in a.m. for further recommendations History of CAD On statin Imdur Coreg and aspirin COPD Chronic respiratory failure with 2.5 l oxygen at nighttime Continue home inhalers and nebs Hypertension Continue amlodipine, Coreg, Imdur and lisinopril Monitor blood pressure closely Hyperlipidemia continue statin Depression and anxiety continue paroxetine and Xanax Prediabetes follow HbA1c levels DVT prophylaxis Lovenox Disposition med/telemetry Full code History of Present Illness Chief Complaint: Intractable headache Primary Care Provider: Merlin Barrios MD 76-year-old female past med significant for hyperlipidemia and prediabetes COPD, chronic respiratory failure with 2.4 L oxygen in the nighttime, hypertension, CAD s/p cardiac cath 04/2018 showing 60 to 70% stenosis of the proximal LAD just before the bifurcation of large diagonal branch, history of classical migraines, spastic dysphonia, depression, delusional disorder, tobacco use disorder, anxiety, history of atrial flutter s/p successful isthmus ablation in May 2017 and postprocedure potline monitor revealed no recurrence of atrial arrhythmias and therefore anticoagulation was discontinued as per cardiology notes and also diltiazem discontinued because of sinus bradycardia with occasional junctional rhythm and A-V dissociation noted on EKG in October 2017 which was resolved after stopping diltiazem as per cardiology notes, presents with ongoing headaches for last 2 weeks. Patient is really getting worse. She was taking [id number] pain medications and also her sumatriptan but is not helping. Lights and sounds bothering her. In the ER she was given IV Tylenol, Decadron, IV Benadryl, IV Toradol, IV Ativan and IV magnesium and IV Reglan but still did not help her headache. She got a dose of morphine and says that took away half of her headache. Says has some blurred vision. No earache runny nose or sore throat. States has chronic cough from her COPD. Is having a lot of nausea but no vomiting. Because of nausea she is not eating much. Denies any fevers. No chest pain. Says she always has some shortness of breath. Denies abdominal pain. Normal bowel and bladder movements. Could not ambulate much because of her shortness of breath. Says her headaches are running okay at home. Says she seems like a log. Currently resting comfortably hemogram stable Allergies Allergy/AdvReac Type Severity Reaction Status Date / Time No Known Allergies Allergy Verified 10/20/22 23:13 Home Medications Medication Instructions Recorded Confirmed Type ascorbic acid (vitamin C) 1,000 mg 500 mg PO DAILY 05/10/18 10/20/22 History tablet (Vitamin C) aspirin 81 mg tablet,delayed 81 mg PO HS 05/10/18 10/20/22 History release calcium carbonate 600 mg-vitamin 1 tab PO BID 05/10/18 10/20/22 History D3 20 mcg (800 unit) chewable tablet (Caltrate 600 plus D) omega 5-cao-knt-fish oil 1,000 mg 1 cap PO HS 05/10/18 10/20/22 History (120 mg-180 mg) capsule (Fish Oil) paroxetine HCl 30 mg tablet 60 mg PO DAILY 05/10/18 10/20/22 History albuterol sulfate 90 mcg/actuation 2 puff inhalation Q6H PRN SHORT OF 01/14/19 10/20/22 History aerosol inhaler BREATH cyanocobalamin (vitamin B-12) 1,000 mcg PO HS 01/14/19 10/20/22 History 1,000 mcg tablet nitroglycerin 0.4 mg sublingual 0.4 mg sublingual USEASDIRECTD PRN 01/14/19 10/20/22 History tablet Chest Pain sumatriptan succinate 100 mg tablet 100 mg PO UD PRN Migraine Headache 01/14/19 10/20/22 History rosuvastatin 40 mg tablet 40 mg PO HS 10/10/19 10/20/22 History fluticasone 100 mcg-salmeterol 50 1 inh inhalation AMHS 02/10/20 10/20/22 History mcg/dose blistr powdr for inhalation (Advair Diskus) umeclidinium 62.5 mcg/actuation 1 inh inhalation DAILY 02/10/20 10/20/22 History blister powder for inhalation (Incruse Ellipta) alprazolam 1 mg tablet 1 mg PO HS #10 tabs 02/18/20 10/20/22 Rx amlodipine 5 mg tablet (Norvasc) 5 mg PO QAM #30 tabs 11/14/21 10/20/22 Rx carvedilol 3.125 mg tablet 3.125 mg PO BID #60 tabs 11/14/21 10/20/22 Rx isosorbide mononitrate 60 mg 60 mg PO QAM #30 tabs 11/14/21 10/20/22 Rx tablet,extended release 24 hr ipratropium 0.5 mg-albuterol 3 mg 3 ml NEB QIDR #90 mL 01/19/22 10/20/22 Rx (2.5 mg base)/3 mL nebulization soln gabapentin 300 mg capsule 300 mg PO BID PRN arm,leg pain 10/20/22 10/20/22 History lisinopril 40 mg tablet 40 mg PO QAM 10/20/22 10/20/22 History Past Med/Surg History Medical History Acute exacerbation of chronic obstructive pulmonary disease (COPD) Anxiety and depression Atrial flutter s/p ablation 05/2017. Follows with [facility]. CAD (coronary artery disease) Nonobstructive by 2018 cardiac cath. NSTEMI ruled 2/2 coronary spasm. COPD (chronic obstructive pulmonary disease) 2.5 LPM VIA N/C ONLY AT HS. Advair daily, rarely using rescue inhaler, ~ 3x per month Continues to smoke 1ppd COVID-19 Degenerative disc disease Hyperlipidemia Hypertension Migraines Myocardial Infarction NSTEMI 04/2018 [facility] NSTEMI (non-ST elevated myocardial infarction) On home oxygen therapy 2.5L AT HS Osteoarthritis Prediabetes Sleep apnea "MILD" ONLY WEARS O2 AT 2.5L AT HS Tear of lateral meniscus of right knee Tear of medial meniscus of right knee Surgical History History of breast biopsy History of cardiac cath 04/2018 for NSTEMI, Nonobstructive moderate proximal to mid LAD disease. History of cardiac radiofrequency ablation 2018 History of section X 2 History of colonoscopy History of dilatation and curettage History of discectomy LUMBAR History of eye surgery RT EYE (CAN'T REMEMBER WHAT FOR) History of laparoscopy 2/2 endometriosis History of open reduction and internal fixation (ORIF) procedure RT ANKLE History of tooth extraction Family History Father Hypertension Brother Diabetes Depression Family history of diabetes mellitus Sister Depression Family history of diabetes mellitus Social History Smoking Status: Current every day smoker Tobacco Type: Cigarettes Cigarettes Per Day: 10; Second Hand Exposure: No; Do You Dip or Chew Tobacco: No; Hx Alcohol Use: Yes Alcohol type: hard liquor Hx Substance Use: No Preferred Language: Danish Communication Ability: Effective Communication Ability Comment: Inhibited only by SOB. Visual Impairment: No Limitations Hearing Ability: Normal Import Export Agent Required: No Beliefs That Will Affect Care: None marital status: Current Living Situation: Alone How many Children do You have: 2 Feels Safe at Home: Yes Assistive Devices: Cane and Walker Review of Systems Review of Systems: All systems reviewed & are unremarkable except as noted in Subjective Physical Exam Physical Exam: General- Not in distress. Head- atraumatic Eyes- PERRL ENT- oropharynx clear Neck- supple, no JVD Lungs- clear to auscultation and percussion no added sounds Heart- regular rate and rhythm; no murmur, no gallop, Abdomen- normal bowel sounds, soft, nontender, no distension Extremities- no pretibial edema, no erythema Neuro- alert, oriented x 3; PERRL, no facial palsy; no dysarthria; motor 5/5 bilaterally obeys commands Skin- warm & dry Results & Data Results & Data Vital Signs (Past 12 Hours) Vital Signs Temp Pulse Pulse Resp BP BP Pulse Ox 10/21/22 02:20 95 10/21/22 02:10 95 10/21/22 02:01 160/100 H 94 10/21/22 02:00 96 10/21/22 01:50 96 10/21/22 01:40 95 10/21/22 01:30 183/89 H 95 10/21/22 01:20 94 10/21/22 01:10 94 10/21/22 01:00 168/80 H 94 10/21/22 00:50 95 10/21/22 00:44 163/91 H 94 10/21/22 00:40 95 10/21/22 00:37 191/97 H 96 10/20/22 23:49 63 16 173/81 H 95 10/20/22 23:40 66 15 95 10/20/22 23:30 62 15 94 10/20/22 23:20 68 16 94 10/20/22 23:10 69 20 92 10/20/22 23:00 62 13 91 10/20/22 22:50 65 16 159/77 H 94 10/20/22 23:21 88 L 10/20/22 23:00 63 20 159/77 H 92 10/20/22 22:30 59 L 17 90 10/20/22 22:20 61 17 94 10/20/22 22:10 61 16 91 10/20/22 22:00 59 L 21 92 10/20/22 21:55 63 15 93 10/20/22 21:40 60 16 90 10/20/22 21:41 60 10/20/22 21:02 36.9 C 15 10/20/22 21:02 36.9 C 60 16 191/97 H 94 O2 Del Method O2 Flow Rate 10/21/22 02:20 10/21/22 02:10 10/21/22 02:01 10/21/22 02:00 10/21/22 01:50 10/21/22 01:40 10/21/22 01:30 10/21/22 01:20 10/21/22 01:10 10/21/22 01:00 10/21/22 00:50 10/21/22 00:44 10/21/22 00:40 10/21/22 00:37 10/20/22 23:49 10/20/22 23:40 10/20/22 23:30 10/20/22 23:20 10/20/22 23:10 10/20/22 23:00 10/20/22 22:50 10/20/22 23:21 Room Air, Nasal Cannula 0 10/20/22 23:00 Room Air 10/20/22 22:30 10/20/22 22:20 10/20/22 22:10 10/20/22 22:00 10/20/22 21:55 10/20/22 21:40 10/20/22 21:41 10/20/22 21:02 10/20/22 21:02 Room Air Diagnostic Findings Laboratory Results WBC 6.35 K/ul (4.8-10.8) 10/20/22 21:10 RBC 4.44 M/uL (4.20-5.40) 10/20/22 21:10 Hgb 14.5 g/dl (12.0-16.0) 10/20/22 21:10 Hct 43.2 % (37.0-47.0) 10/20/22 21:10 MCV 97.3 fL (80.0-100.0) 10/20/22 21:10 MCH 32.7 pg (25.0-34.0) 10/20/22 21:10 MCHC 33.6 g/dL (32.0-36.0) 10/20/22 21:10 RDW Std Deviation 51.8 fL (36.4-46.3) H 10/20/22 21:10 RDW Coeff of Bryan 14.4 % (11.5-14.5) 10/20/22 21:10 Plt Count 260 K/uL (130-400) 10/20/22 21:10 MPV 9.1 fL (9.4-12.4) L 10/20/22 21:10 Immature Gran % (Auto) 0.2 % 10/20/22 21:10 Neut % (Auto) 40.7 % 10/20/22 21:10 Lymph % (Auto) 35.7 % 10/20/22 21:10 [place] % (Auto) 7.4 % 10/20/22 21:10 Eos % (Auto) 15.4 % 10/20/22 21:10 Baso % (Auto) 0.6 % 10/20/22 21:10 Neut # (Auto) 2.58 K/uL (1.40-6.50) 10/20/22 21:10 Lymph # (Auto) 2.27 K/uL (1.2-3.4) 10/20/22 21:10 [place] # (Auto) 0.47 K/uL (0.11-0.59) 10/20/22 21:10 Eos # (Auto) 0.98 K/uL (0-0.50) H 10/20/22 21:10 Baso # (Auto) 0.04 K/uL (0-0.2) 10/20/22 21:10 Immature Gran # (Auto) 0.01 K/uL (0.01-0.20) 10/20/22 21:10 Sodium 141 mmol/L (136-145) 10/20/22 21:10 Potassium 4.0 mmol/L (3.5-5.1) 10/20/22 21:10 Chloride 106 mmol/L (98-107) 10/20/22 21:10 Carbon Dioxide 28 mmol/L (21-32) 10/20/22 21:10 Anion Gap 7 (3-11) 10/20/22 21:10 BUN 15 mg/dl (6-23) 10/20/22 21:10 Creatinine 0.71 mg/dl (0.6-1.2) 10/20/22 21:10 Est Cr Clr Drug Dosing Not Reportable 10/20/22 21:10 Est GFR ( Amer) 95.9 ml/min 10/20/22 21:10 Est GFR (Non-Af Amer) 82.7 ml/min 10/20/22 21:10 BUN/Creatinine Ratio 21.1 (10-20) H 10/20/22 21:10 Glucose 103 mg/dl (70-99(Fasting)) H 10/20/22 21:10 Calcium 9.0 mg/dl (8.6-10.3) 10/20/22 21:10 Magnesium 2.1 mg/dl (1.7-2.4) 10/20/22 21:10 Total Bilirubin 0.5 mg/dl (0.2-1.0) 10/20/22 21:10 AST 28 U/L (13-39) 10/20/22 21:10 ALT 24 U/L (7-52) 10/20/22 21:10 Alkaline Phosphatase 52 U/L (34-104) 10/20/22 21:10 Troponin I High Sens 7.7 pg/ml (0-14) 10/20/22 21:10 Total Protein 6.4 gm/dl (6.0-8.3) 10/20/22 21:10 Albumin 3.9 gm/dl (3.4-5.0) 10/20/22 21:10 Globulin 2.5 gm/dl (2.5-4.0) 10/20/22 21:10 Albumin/Globulin Ratio 1.6 (0.9-2) 10/20/22 21:10 Urine Color Yellow 10/20/22 21:10 Urine Appearance Clear (Clear) 10/20/22 21:10 Urine pH 7.0 (4.5-7.5) 10/20/22 21:10 Ur Specific [place] 1.005 (1.000-1.030) 10/20/22 21:10 Urine Protein Negative (Negative) 10/20/22 21:10 Urine Glucose (UA) Negative (Negative) 10/20/22 21:10 Urine Ketones Negative (Negative) 10/20/22 21:10 Urine Blood Negative (Negative) 10/20/22 21:10 Urine Nitrite Negative (Negative) 10/20/22 21:10 Urine Bilirubin Negative (Negative) 10/20/22 21:10 Urine Urobilinogen Negative (Negative) 10/20/22 21:10 Ur Leukocyte Esterase Negative (Negative) 10/20/22 21:10 Lyme Disease IgG Ab Negative (Negative) 10/20/22 21:10 Lyme Disease IgM Ab Negative (Negative) 10/20/22 21:[address] 10/20/22 21:35 CT SCAN OF THE BRAIN WITHOUT IV CONTRAST CLINICAL HISTORY: Headache. COMPARISON STUDY: CT of the brain dated 10/10/2019. TECHNIQUE: Unenhanced axial CT scan of the brain is performed from the vertex to the skull base. A dose lowering technique was utilized adhering to the principles of ALARA. CT DOSE: 703.85 mGy.cm FINDINGS: Brain parenchyma: There is age-related involutional change noting moderate subcortical and periventricular microangiopathic disease. There is no hemorrhage, mass effect, or evidence of acute territorial ischemia by CT criteria. Garrett-white matter differentiation is preserved. No extra-axial fluid collection is seen. Ventricles, sulci, cisterns: Prominent secondary to involutional change. Intracranial vasculature: There is mild atherosclerotic calcification of the cavernous carotid arteries. Calvarium: Unremarkable. Sinuses and mastoids: The visualized paranasal sinuses are clear. The mastoid air cells are well pneumatized. Orbits: The bony orbits are grossly intact. There are bilateral ocular lens implants. IMPRESSION: There is no hemorrhage, mass effect, or evidence of acute territorial ischemia by CT criteria. ACT 112: Negative or not required by law. Electronically signed by: Stevo Jackson M.D. 10/20/2022 9:58 PM Chest X-Ray 10/20/22 21:36 SINGLE VIEW CHEST CLINICAL HISTORY: Generalized weakness. FINDINGS: An AP, portable, upright chest radiograph is compared to study dated 06/13/2022. Correlation is made with chest CT dated 05/10/2018. The heart is enlarged. The pulmonary vasculature is noncongested. Chronic interstitial thickening is similar to previous. Scarring/atelectasis is noted at the lung bases. The lungs and pleural spaces are otherwise clear. No pneumothorax is seen. The skeletal structures are osteopenic. The bony thorax is grossly intact. IMPRESSION: No acute cardiopulmonary abnormality. ACT 112: Negative or not required by law. Electronically signed by: Stevo Jackson M.D. 10/20/2022 10:27 PM Head CTA 10/20/22 22:57 Exam(s): CTA HEAD With Contrast IV Amt: 117 cc's EXAM: CT Angiography Head With Intravenous Contrast CLINICAL HISTORY: Severe headache. TECHNIQUE: Axial computed tomographic angiography images of the head with intravenous contrast. Automated exposure control was utilized for the study. A dose lowering technique was utilized adhering to the principles of ALARA. MIP reconstructed images were created and reviewed. CONTRAST: Patient received 117 cc's of IV contrast COMPARISON: No relevant prior studies available. FINDINGS: Right internal carotid artery: No acute findings. Intracranial segment is patent with no significant stenosis. No aneurysm. Right anterior cerebral artery: Unremarkable. No occlusion or significant stenosis. No aneurysm. Right middle cerebral artery: Unremarkable. No occlusion or significant stenosis. No aneurysm. Right posterior cerebral artery: Unremarkable. No occlusion or significant stenosis. No aneurysm. Right vertebral artery: Unremarkable as visualized. Left internal carotid artery: No acute findings. Intracranial segment is patent with no significant stenosis. No aneurysm. Left anterior cerebral artery: Unremarkable. No occlusion or significant stenosis. No aneurysm. Left middle cerebral artery: Unremarkable. No occlusion or significant stenosis. No aneurysm. Left posterior cerebral artery: Unremarkable. No occlusion or significant stenosis. No aneurysm. Left vertebral artery: Unremarkable as visualized. Basilar artery: Unremarkable. No occlusion or significant stenosis. No aneurysm. IMPRESSION: No acute finding of the arteries of the head. Electronically signed by: Britney Leahy MD 10/21/22 02:16 AM ECG Additional Comments: ECG sinus bradycardia with PACs at a rate of 57. Nonspecific T wave abnormalities Code Status & VTE Plan VTE Prophylaxis Plan VTE Prophylaxis will be ordered: Yes (1) Acute intractable headache Headache type: tension-type Qualified Code(s): G44.201 - Tension-type headache, unspecified, intractable
[2022-10-21] MEDS ORDERED: ACETAMINOPHEN 325 MG TAB PO PRN (03:57)
[2022-10-21] MEDS ORDERED: POLYETHYLENE (MIRALAX) 17 GM PACK PO PRN (03:57)
[2022-10-21] MEDS ORDERED: SUMAtriptan succinate 100 MG TAB PO PRN (03:57)
[2022-10-21] MEDS ORDERED: ALBUTEROL HFA 8 GM INHALER INH PRN (03:57)
[2022-10-21] MEDS ORDERED: GABAPENTIN 300 MG CAP PO PRN (03:57)
[2022-10-21] MEDS ORDERED: NITROGLYCERIN SL 0.4 MG/TAB TAB SL PRN ×2 (03:57)
[2022-10-21] MEDS: SODIUM CHLORIDE 0.9% 1000ML 1,000 ML IV SCH ×2 (04:29→14:54)
[2022-10-21] MEDS ORDERED: ALBUT/IPRATROP 3MG/0.5MG NEB 3 ML VIAL NEB SCH (07:00)
[2022-10-21 07:21] LABS: Basophils # (auto) 0.03 K/uL (0-0.2); Basophils % (auto) 0.6 %; Eosinophils # (auto) 0.05 K/uL (0-0.50); Eosinophils % (auto) 0.9 %; Hematocrit (blood only) 46.5 % (37.0-47.0); Hemoglobin 15.6 g/dl (12.0-16.0); Immature Granulocytes # (auto) 0.02 K/uL (0.01-0.20); Immature Granulocytes % (auto) 0.4 %; Lymphocytes % (auto) 16.5 %; Mean Corpuscular Hemoglobin 32.4 pg (25.0-34.0); Mean Corpuscular Hgb Conc 33.5 g/dL (32.0-36.0); Mean Corpuscular Volume 96.7 fL (80.0-100.0); Mean Platelet Volume 8.9 fL (9.4-12.4); Monocytes # (auto) 0.06 K/uL (0.11-0.59); Monocytes % (auto) 1.1 %; Neutrophils # (auto) 4.38 K/uL (1.40-6.50); Neutrophils % (auto) 80.5 %; Platelet Count 255 K/uL (130-400); RDW Standard Deviation 50.1 fL (36.4-46.3); Red Blood Count 4.81 M/uL (4.20-5.40); White Blood Count 5.44 K/ul (4.8-10.8)
[2022-10-21 07:34] LABS: BUN Creatinine Ratio 14.9 (10-20); Calcium 9.1 mg/dl (8.6-10.3); Est GFR (African American) 91.2 ml/min; Est GFR (Non-African American) 78.7 ml/min; Magnesium 2.3 mg/dl (1.7-2.4); Potassium 4.6 mmol/L (3.5-5.1)
[2022-10-21] MEDS: HYDROmorphone INJ 0.5 MG/0.5 ML SYR IV PRN ×2 (08:37→17:57)
[2022-10-21] MEDS: ONDANSETRON INJ 2 MG/ML 2 ML VIAL IV PRN ×2 (08:46→17:09)
[2022-10-21] MEDS ORDERED: ALBUT/IPRATROP 3MG/0.5MG NEB 3 ML VIAL NEB PRN (09:18)
[2022-10-21] MEDS: FLUTICASONE/VILANTEROL 100/25MCG 14 PUFFS/INHALER INH SCH (09:47)
[2022-10-21] MEDS: carvediloL 3.125 MG TAB PO SCH ×2 (09:47→20:52)
[2022-10-21] MEDS: PARoxetine HCL 20 MG TAB PO SCH (09:47)
[2022-10-21] MEDS: UMECLIDINIUM BROMIDE 62.5MCG/BLISTER 7 PUFFS/INHALER INH SCH (09:47)
[2022-10-21] MEDS: amLODIPine BESYLATE 5 MG TAB PO SCH (09:47)
[2022-10-21] MEDS: lisinopril 40 MG TAB PO SCH (09:47)
[2022-10-21] MEDS: ISOSORBIDE MONO EXTENDED REL 60 MG TABCR PO SCH (09:48)
[2022-10-21] MEDS: CALCIUM 600MG + VIT D 400 IU TAB PO SCH ×2 (09:48→20:51)
[2022-10-21] MEDS: ENOXAPARIN INJ 40 MG/0.4 ML SYR SQ SCH (09:48)
[2022-10-21] MEDS: ASCORBIC ACID 500 MG TAB PO SCH (09:48)
--- NOTE | 2022-10-21 10:43 | Electrocardiogram Report ---
Test Reason : Blood Pressure : / mmHG Vent. Rate : 057 BPM Atrial Rate : 057 BPM P-R Int : 156 ms QRS Dur : 094 ms QT Int : 358 ms P-R-T Axes : 061 -08 099 degrees QTc Int : 348 ms Sinus bradycardia with Premature atrial complexes Nonspecific T wave abnormality Abnormal ECG When compared with ECG of 13-JUN-2022 13:35, Premature atrial complexes are now Present T wave inversion no longer evident in Lateral leads QT has shortened Confirmed by Reese Garg ([id number]) on 10/21/2022 10:42:54 AM Referred By: REFERRED SELF Confirmed By:Reese Garg
--- NOTE | 2022-10-21 13:43 | Communication Note ---
Date of Service: October 21, 2022 Patient admitted this morning by Dr Jeffery for intractable migraine headache. Patient reports a distant history of migraine headache but with no migraine for years. Until 2 weeks ago when she developed a headache which is described as bilateral frontal and posterior. Associated with nausea, worsened with light. She has been taking 6-8 pills of ibuprofen and acetaminophen daily for the headache but with no relieve. Prior to the onset of her headache, she was also taking 6-8 pills of ibuprofen and acetaminophen a day for chronic groin pain. Suddenly her groin pain resolved at the same time of her headache onset. Noted that in the ER yesterday, she received Decadron 10mg, toradol 10mg, Magnesium 1gram, ativan 0.5mg IV, tylenol 1gram IV, benadryl 12.5mg IV, reglan 10mg IV. Despite this, she has ongoing headache. A/P- 1) Intractable migraine headache -I suspect this may be due to medication overuse given her history of daily ibuprofen and tylenol use -Will discontinue further doses of acetaminophen -Neurology consulted to help with management 2) Nausea -Zofran as needed
[2022-10-21] MEDS ORDERED: METOCLOPRAMIDE HCL INJ 5 MG/ML 2 ML VIAL IV PRN (13:44)
--- NOTE | 2022-10-21 13:51 | Neurology Consultation ---
Date of Consultation October 21, 2022 Assessment & Plan (1) Status migrainosus without intractable migraine: Plan A 76 year old female with history of chronic migraine headache not on prophylactic medicaitons using Imitrex 100 mg PRN for abortive admitted with Status migrainosus. Clinical symptoms or headache phenotype are consistent with migraine. CT and CTA head and Neck reassuring. Patient wiht long standing history of headaches as seen in 2000 for longstanding headaches by Dr. Burch. While inpatient recommend cIVF, Reglan 10 mg IV Qhr, Benadryl 25 mg IV Qh8, and Depakote 750 mg IV Q12 hr. For prophylactic medication recommend starting Gabapentin 300 mg TID. Neuro follow up as outpatient. Would recommend obtaining follow up MRI as well given abnormal MRI imaging in the past. May need open MRI scanner. History of Present Illness Reason for Consultation: Intractable migraine Requesting Physician: Dr. Rees Attending Physician: Debbie Rees MD History of Present Illness A 76 year old female with long standing history of chronic migraine headaches previously [place] [address] Burch and more recently following with PCP for chronic headaches admitted with intractable migraine with nausea. She has suffered from headaches for more then 50+ years per chart review. Has family history of migraines as well as abnormal MRI imaging in the past. No recent MRI brain imaging. She is reporting a throbbing holocephalic headaches associated with N/V and photo and phonophobia. She has been using Imitrex as needed. Was previosuly on Topamax but did not tolerate. Allergies Allergy/AdvReac Type Severity Reaction Status Date / Time No Known Allergies Allergy Verified 10/20/22 23:13 Home Medications Medication Instructions Recorded Confirmed Type ascorbic acid (vitamin C) 1,000 mg 500 mg PO DAILY 05/10/18 10/20/22 History tablet (Vitamin C) aspirin 81 mg tablet,delayed 81 mg PO HS 05/10/18 10/20/22 History release calcium carbonate 600 mg-vitamin 1 tab PO BID 05/10/18 10/20/22 History D3 20 mcg (800 unit) chewable tablet (Caltrate 600 plus D) omega 1-mkt-fyc-fish oil 1,000 mg 1 cap PO HS 05/10/18 10/20/22 History (120 mg-180 mg) capsule (Fish Oil) paroxetine HCl 30 mg tablet 60 mg PO DAILY 05/10/18 10/20/22 History albuterol sulfate 90 mcg/actuation 2 puff inhalation Q6H PRN SHORT OF 01/14/19 10/20/22 History aerosol inhaler BREATH cyanocobalamin (vitamin B-12) 1,000 mcg PO HS 01/14/19 10/20/22 History 1,000 mcg tablet nitroglycerin 0.4 mg sublingual 0.4 mg sublingual USEASDIRECTD PRN 01/14/19 10/20/22 History tablet Chest Pain sumatriptan succinate 100 mg tablet 100 mg PO UD PRN Migraine Headache 01/14/19 10/20/22 History rosuvastatin 40 mg tablet 40 mg PO HS 10/10/19 10/20/22 History fluticasone 100 mcg-salmeterol 50 1 inh inhalation AMHS 02/10/20 10/20/22 History mcg/dose blistr powdr for inhalation (Advair Diskus) umeclidinium 62.5 mcg/actuation 1 inh inhalation DAILY 02/10/20 10/20/22 History blister powder for inhalation (Incruse Ellipta) alprazolam 1 mg tablet 1 mg PO HS #10 tabs 02/18/20 10/20/22 Rx amlodipine 5 mg tablet (Norvasc) 5 mg PO QAM #30 tabs 11/14/21 10/20/22 Rx carvedilol 3.125 mg tablet 3.125 mg PO BID #60 tabs 11/14/21 10/20/22 Rx isosorbide mononitrate 60 mg 60 mg PO QAM #30 tabs 11/14/21 10/20/22 Rx tablet,extended release 24 hr ipratropium 0.5 mg-albuterol 3 mg 3 ml NEB QIDR #90 mL 01/19/22 10/20/22 Rx (2.5 mg base)/3 mL nebulization soln gabapentin 300 mg capsule 300 mg PO BID PRN arm,leg pain 10/20/22 10/20/22 History lisinopril 40 mg tablet 40 mg PO QAM 10/20/22 10/20/22 History Patient History Medical History Acute exacerbation of chronic obstructive pulmonary disease (COPD) Anxiety and depression Atrial flutter s/p ablation 05/2017. Follows with [facility] cardio. CAD (coronary artery disease) Nonobstructive by 2018 cardiac cath. NSTEMI ruled 2/2 coronary spasm. COPD (chronic obstructive pulmonary disease) 2.5 LPM VIA N/C ONLY AT HS. Advair daily, rarely using rescue inhaler, ~ 3x per month Continues to smoke 1ppd COVID-19 Degenerative disc disease Hyperlipidemia Hypertension Migraines Myocardial Infarction NSTEMI 04/2018 [facility] NSTEMI (non-ST elevated myocardial infarction) On home oxygen therapy 2.5L AT HS Osteoarthritis Prediabetes Sleep apnea "MILD" ONLY WEARS O2 AT 2.5L AT HS Tear of lateral meniscus of right knee Tear of medial meniscus of right knee Surgical History History of breast biopsy History of cardiac cath 04/2018 for NSTEMI, Nonobstructive moderate proximal to mid LAD disease. History of cardiac radiofrequency ablation 2018 History of section X 2 History of colonoscopy History of dilatation and curettage History of discectomy LUMBAR History of eye surgery RT EYE (CAN'T REMEMBER WHAT FOR) History of laparoscopy 2/2 endometriosis History of open reduction and internal fixation (ORIF) procedure RT ANKLE History of tooth extraction Family History Father Hypertension Brother Diabetes Depression Family history of diabetes mellitus Sister Depression Family history of diabetes mellitus Social History Smoking Status: Current every day smoker Tobacco Type: Cigarettes Cigarettes Per Day: 10; Second Hand Exposure: No; Do You Dip or Chew Tobacco: No; Hx Alcohol Use: No Hx Substance Use: No Preferred Language: Dominican Communication Ability: Effective Communication Ability Comment: Inhibited only by SOB. Visual Impairment: No Limitations Hearing Ability: Normal Chemistry Department Chair Required: No Beliefs That Will Affect Care: None marital status: Current Living Situation: Alone How many Children do You have: 2 Feels Safe at Home: Yes Safety Concerns: Feels Safe At This Time Assistive Devices: Cane and Walker Physical Exam Physical Exam: Seen on televideo. Awake and alert. Following commands. No distress. Face symmetric. Eyes midline. Neck supple. No involuntary movements. Moving all 4 extremities. Sensation intact. Speech is clear and fluent. Results & Data Vital Signs (Past 12 Hours) Vital Signs Temp Pulse Pulse Resp BP BP Pulse Ox 10/21/22 11:47 36.7 C 84 20 171/93 H 93 10/21/22 10:21 80 10/21/22 08:35 36.8 C 75 20 181/97 H 93 10/21/22 08:47 74 16 91 10/21/22 08:24 84 18 173/90 H 92 10/21/22 06:50 72 15 95 10/21/22 06:40 69 14 94 10/21/22 06:30 82 13 199/110 H 95 10/21/22 06:20 71 14 94 10/21/22 06:10 72 13 94 10/21/22 06:00 80 13 95 10/21/22 05:50 76 13 94 10/21/22 05:40 67 12 95 10/21/22 05:30 68 12 168/91 H 94 10/21/22 05:20 73 13 95 10/21/22 05:10 72 18 95 10/21/22 05:00 68 13 175/85 H 94 10/21/22 04:50 64 19 94 10/21/22 04:40 64 17 94 10/21/22 04:31 62 14 94 10/21/22 04:30 73 13 94 10/21/22 04:56 65 10/21/22 04:20 69 23 176/80 H 93 10/21/22 04:16 64 17 94 10/21/22 04:00 94 10/21/22 04:14 10/21/22 04:14 36.6 C 78 18 176/80 H 95 10/21/22 04:00 10/21/22 03:50 94 10/21/22 03:40 94 10/21/22 03:30 170/82 H 95 10/21/22 03:20 95 10/21/22 03:10 94 10/21/22 03:00 171/94 H 95 10/21/22 02:50 96 10/21/22 02:40 93 10/21/22 02:30 170/86 H 93 10/21/22 02:20 95 10/21/22 02:10 95 10/21/22 02:01 160/100 H 94 10/21/22 02:00 96 Pulse Ox O2 Del Method O2 Del Method O2 Flow Rate O2 Flow Rate 10/21/22 11:47 Room Air 10/21/22 10:21 10/21/22 08:35 Room Air 10/21/22 08:47 Room Air 10/21/22 08:24 Room Air 10/21/22 06:50 10/21/22 06:40 10/21/22 06:30 10/21/22 06:20 10/21/22 06:10 10/21/22 06:00 10/21/22 05:50 10/21/22 05:40 10/21/22 05:30 10/21/22 05:20 10/21/22 05:10 10/21/22 05:00 10/21/22 04:50 10/21/22 04:40 10/21/22 04:31 10/21/22 04:30 10/21/22 04:56 10/21/22 04:20 10/21/22 04:16 10/21/22 04:00 10/21/22 04:14 Nasal Cannula 2.5 10/21/22 04:14 Nasal Cannula 2.5 10/21/22 04:00 95 Nasal Cannula 2.5 10/21/22 03:50 10/21/22 03:40 10/21/22 03:30 10/21/22 03:20 10/21/22 03:10 10/21/22 03:00 10/21/22 02:50 10/21/22 02:40 10/21/22 02:30 10/21/22 02:20 10/21/22 02:10 10/21/22 02:01 10/21/22 02:[address] head and CTA head and neck Negative.
[2022-10-21] MEDS: GABAPENTIN 300 MG CAP PO SCH ×2 (14:55→20:50)
[2022-10-21] MEDS ORDERED: ALPRAZolam 0.5 MG TABLET PO SCH (21:00)
[2022-10-21] MEDS ORDERED: ASPIRIN 81 MG ECTAB PO SCH (21:00)
[2022-10-21] MEDS ORDERED: GABAPENTIN 300 MG CAP PO SCH (21:00)
[2022-10-21] MEDS ORDERED: CYANOCOBALAMIN (B-12) 500 MCG TABLET PO SCH (21:00)
[2022-10-21] MEDS ORDERED: ROSUVASTATIN CALCIUM 20 MG TAB PO SCH (21:00)
[2022-10-22] MEDS: ISOSORBIDE MONO EXTENDED REL 60 MG TABCR PO SCH (08:51)
[2022-10-22] MEDS: amLODIPine BESYLATE 5 MG TAB PO SCH (08:52)
[2022-10-22] MEDS: PARoxetine HCL 20 MG TAB PO SCH (08:52)
[2022-10-22] MEDS: ASCORBIC ACID 500 MG TAB PO SCH (08:52)
[2022-10-22] MEDS: GABAPENTIN 300 MG CAP PO SCH (08:52)
[2022-10-22] MEDS: carvediloL 3.125 MG TAB PO SCH (08:53)
[2022-10-22] MEDS: FLUTICASONE/VILANTEROL 100/25MCG 14 PUFFS/INHALER INH SCH (08:53)
[2022-10-22] MEDS: ENOXAPARIN INJ 40 MG/0.4 ML SYR SQ SCH (08:53)
[2022-10-22] MEDS: CALCIUM 600MG + VIT D 400 IU TAB PO SCH (08:53)
[2022-10-22] MEDS: lisinopril 40 MG TAB PO SCH (08:53)
[2022-10-22] MEDS: UMECLIDINIUM BROMIDE 62.5MCG/BLISTER 7 PUFFS/INHALER INH SCH (08:54)
--- NOTE | 2022-10-22 10:41 | Communication Note ---
Date of Service: October 22, 2022 By CMS guidelines, a determination that the admission or continued stay is not medically necessary has been made by a member of the UR committee and a physi ernie for this hospital stay, therefore a Code 44 will be completed and the Inpatient admission will be changed to outpatient.
--- NOTE | 2022-10-22 10:48 | Discharge Summary ---
Date of Service October 22, 2022 Admission HPI Per Admitting Provider 76-year-old female past med significant for hyperlipidemia and prediabetes COPD, chronic respiratory failure with 2.4 L oxygen in the nighttime, hypertension, CAD s/p cardiac cath 04/2018 showing 60 to 70% stenosis of the proximal LAD just before the bifurcation of large diagonal branch, history of classical migraines, spastic dysphonia, depression, delusional disorder, tobacco use disorder, anxiety, history of atrial flutter s/p successful isthmus ablation in May 2017 and postprocedure lunchroom monitor revealed no recurrence of atrial arrhythmias and therefore anticoagulation was discontinued as per cardiology notes and also diltiazem discontinued because of sinus bradycardia with occasional junctional rhythm and A-V dissociation noted on EKG in October 2017 which was resolved after stopping diltiazem as per cardiology notes, presents with ongoing headaches for last 2 weeks. Patient is really getting worse. She was taking dvhq-ucm-jrczses pain medications and also her sumatriptan but is not helping. Lights and sounds bothering her. In the ER she was given IV Tylenol, Decadron, IV Benadryl, IV Toradol, IV Ativan and IV magnesium and IV Reglan but still did not help her headache. She got a dose of morphine and says that took away half of her headache. Says has some blurred vision. No earache runny nose or sore throat. States has chronic cough from her COPD. Is having a lot of nausea but no vomiting. Because of nausea she is not eating much. Denies any fevers. No chest pain. Says she always has some shortness of breath. Denies abdominal pain. Normal bowel and bladder movements. Could not ambulate much because of her shortness of breath. Says her headaches are running okay at home. Says she seems like a log. Currently resting comfortably hemogram stable Principal Diagnosis Intractable Migraine headache Discharge Exam Patient feels well Her migraine has subsided Her nausea/vomiting has resolved She has been eating, ambulating in room independently and feels comfortable going home On exam, she appears well. Pleasant, comfortable. Breathing comfortably on room air. Heart sounds are regular rate and rhythm. Awake and spontaneously moving extremities. Answering questions appropriately. Discharge Data Allergies Allergy/AdvReac Type Severity Reaction Status Date / Time No Known Allergies Allergy Verified 10/20/22 23:13 Consultations 10/21/22 01:39 ED Decision to Admit Stat 10/21/22 08:00 Consult Neurology Routine Ordered Studies 10/20/22 21:35 CT head/brain wo con Stat 10/20/22 22:57 CTA head w con [CT angio head w con] Stat Hospital Course (1) Acute intractable headache: 76-year-old female with distant history of migraine headaches, CAD, COPD, hypertension, hyperlipidemia, depression, anxiety presents to the ER with an intractable migraine headache that was ongoing for the past 2 weeks Patient had a CTA head and CT head which were unremarkable. She had multiple medications administered in the ER with limited effect. She had ongoing nausea/vomiting/headache. Upon further investigation, she reports taking about 6-8 tablets of ibuprofen and acetaminophen daily for past several months due to groin pain. Her groin pain has since resolved but she now has an unrelenting migraine. It is likely that her current migraine was triggered by analgesic medication overuse and this was explained to her. She was seen by Neurology and started on gabapentin 300mg TID. With supportive care (IV fluids, IV reglan, IV zofran) and initiation of gabapentin by the next day, her migraine had resolved. She was able to tolerate food and has been independent in her room. She lives alone at home and feels comfortable returning home. She will need to re-establish care with Neurology for management of her migraine headache. She was given a prescription for gabapentin 300mg TID. Her remaining home medications were unchanged. Initially, with her severe unrelenting symptoms requiring IV medication management, it was expected she would require at least 2 midnight stay for f urther stabilization so she was admitted as an inpatient. However, she quickly improved after the first day and so she was discharged after only 1 midnight here. Total Time Total Time Spent Total Time Spent (In Minutes): 35 Discharge Plan Discharge Items Patient Disposition: Home - Self-Care Reason For Visit: INTRACTABLE HEADACHE Discharge Diagnosis: Intractable migraine headache Condition on Discharge: Good Activity: Resume your previous activity Non-emergency contact: Primary Care Provider and Neurologist Call non-emergency contact if: you have any medication questions and your symptoms worsen Follow-up/Referrals: Merlin Barrios MD [Primary Care Provider] - Rowdy Ag DO [Physician] - (Follow up for management of your migraine headache. ) Diet: Heart Healthy Addtl Attending Provider Instructions: You were admitted for an intractable migraine headache which has now subsided You were started on Gabapentin 300mg three times a day to prevent future migraine headaches You should follow up with Neurology for management of your migraines You may need an MRI of your brain (open preferable due to your claustrophobia, closed MRI if you can tolerate it) Avoid overusing acetaminophen (tylenol) and ibuprofen (motrin, advil) as this may trigger your migraine headaches Pending Studies at Discharge: No Stand-Alone Forms: My [facility], Smoking Cessation Medications and DC Order Prescriptions: New gabapentin 300 mg Capsule 300 mg PO TID Qty: 90 1RF Continued fluticasone propion-salmeterol [Advair Diskus] 100-50 mcg/dose blister with device 1 inh INHALATION AMHS Incruse Ellipta 62.5 mcg/actuation blister with device 1 inh INHALATION DAILY alprazolam 1 mg Tablet 1 mg PO HS Qty: 10 0RF ascorbic acid (vitamin C) [Vitamin C] 1,000 mg Tablet 500 mg PO DAILY paroxetine HCl 30 mg tablet 60 mg PO DAILY omega 1-jhl-qxx-fish oil [Fish Oil] 1,000 mg (120 mg-180 mg) Capsule 1 cap PO HS aspirin 81 mg Tablet,Delayed Release (Dr/Ec) 81 mg PO HS Caltrate 600 plus D 600 mg (1,500 mg)-800 unit Tablet,Chewable 1 tab PO BID sumatriptan succinate 100 mg Tablet 100 mg PO UD PRN (Reason: Migraine Headache) cyanocobalamin (vitamin B-12) 1,000 mcg Tablet 1,000 mcg PO HS nitroglycerin 0.4 mg Tablet, Sublingual 0.4 mg sublingual USEASDIRECTD PRN (Reason: Chest Pain) albuterol sulfate 90 mcg/actuation Hfa Aerosol Inhaler 2 puff INHALATION Q6H PRN (Reason: SHORT OF BREATH) rosuvastatin 40 mg tablet 40 mg PO HS amlodipine [Norvasc] 5 mg Tablet 5 mg PO QAM Qty: 30 0RF carvedilol 3.125 mg Tablet 3.125 mg PO BID Qty: 60 0RF isosorbide mononitrate 60 mg Tablet Extended Release 24 Hr 60 mg PO QAM Qty: 30 0RF ipratropium-albuterol 0.5 mg-3 mg(2.5 mg base)/3 mL Solution For Nebulization 3 ml NEB QIDR Qty: 90 0RF lisinopril 40 mg tablet 40 mg PO QAM Discontinued gabapentin 300 mg capsule 300 mg PO BID PRN (Reason: arm,leg pain) Discharge Orders: Discharge Order (Routine); Ordered 10/22/22 Ordered By: Debbie Rees Admission Data Admit Date/Time: 10/21/22 03:03 Attending Provider: Debbie Rees Admit Provider: Bjorn Jeffery Primary Care Provider: Merlin Barrios Other Providers: Bjorn Jeffery ; Beltran Vaughn ; Tigre Erwin ; Summer Barajas ; Shy Sy ; Latanya Montano ; Elijah Chahal ; Latanya Hatfield ; Juan Caraballo ; Drew Matthews ; Rowdy Ag ; Mateus Hines ; Areli Lizarraga ; Tanya Edmond ; Ryan Perez ; Sherwin Alvarez ; Ayleen Levine ; Ronen Leong ; Kaylen Price
--- NOTE | 2022-10-22 15:53 | Communication Note ---
Date of Service: October 22, 2022 By CMS guidelines, a determination that the admission or continued stay is not medically necessary has been made by a member of the UR committee and a phys ician for this hospital stay, therefore a Code 44 will be completed and the Inpatient admission will be changed to outpatient. Casa Coronel MD Member, Utilization Committee
== END 2022-10-22 13:11 | disposition home or self-care (01) ==
LOC: ED 20:55 → EDINP 10-21 03:03 → INTOOBSV 10-21 03:03 → 2N 10-21 08:24

== ENCOUNTER 2024-05-10 11:39 | Inpatient (IN) ==
--- OUTSIDE RECORDS SUMMARY | 2024-05-10 11:49 | External Medical Summary | Summary of Care ---
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 [address] [place] [address] Brina Barrios MD [address] [place] [address] Anxiety Allergies No known active allergiesdocumented as of this encounter (statuses as of 05/08/2024) Medications Cyanocobalamin (B-12) 1000 MCG TBCR Take by mouth. Activ e vitamin c (ASCORBIC ACID) 500 MG Tablet Take 1 Tablet by mouth in the morning. Active ARTIFICIAL TEARS 0.1-0.3 % ophthalmic solution Instill 1 Drop into eye 3 times a day as needed. Active Calcium Carbonate 1500 (600 Ca) MG Oral Tablet Take 1 Tablet by mouth 2 times a day with morning and evening meals. 018 Active [place]-3 Fatty Acids (FISH OIL) 1000 MG Capsule Take 1 Capsule by mouth at bedtime. Active Ipratropium-Albut sammie 0.5-2.5 (3) MG/3ML Inhalation Solution (Duoneb)Indicatio ns:COPD, group C, by GOLD 2017 classification (HCC) 3ml 4 times daily as needed with nebulizer 200 mL 5 022 Active oxygen IN GASIndications:CO PD, group C, by GOLD 2017 classification ([facility]) Use 2 L/min(Oxygen) as directed at bedtime. Use 2 liters oxygen with activity. Needs small oxygen tanks as unable to move large tanks. Use 2 LPM with sleep 1 Each 022 Active Nicotine 21 MG/24HR Transdermal Patch 24 Hour (Nicoderm CQ) Place 1 Patch topically on the skin daily. 28 Patch 023 Active Additional Information Patient not taking.Reported on 04/09/2024 SUMAtriptan Succinate 100 MG Oral TabletIndications :Migraine with aura TAKE 1 TABLET AT ONSET OF MIGRAINE, MAY REPEAT ONCE IN 2 HOURS 6 Tablet 3 023 Active Nitroglycerin 0.4 MG Sublingual Tablet Sublingual (Nitrostat)Indica tions:Coronary artery disease of bypass graft of [place] heart with stable angina pectoris ([facility]) Place 1 Tablet under the tongue every 5 minutes as needed for Pain, Chest. up to 3 doses in 15 minutes 75 Tablet 3 023 Active Isosorbide Mononitrate ER 60 MG Oral Tablet Extended Release 24 Hour (Imdur) TAKE 1 TABLET BY MOUTH EVERY DAY 90 Tablet 3 024 Active PARoxetine HCl 30 MG Oral Tablet (Paxil) TAKE 2 TABLETS BY MOUTH EVERY DAY 180 Tablet 3 024 Active Fluticasone Furoate-Vilantero l 100-25 MCG/ACT Inhalation Aerosol Powder Breath Activated (BREO ellipta) Inhale 1 Puff by mouth in the morning. 180 Blister Dosing Unit 3 024 Active Albuterol Sulfate HFA 108 (90 Base) MCG/ACT Inhalation Aerosol SolutionIndicatio ns:COPD exacerbation ([facility]) TAKE 2 PUFFS BY MOUTH EVERY 6 HOURS NEEDED FOR WHEEZE 54 g 3 024 Active Rosuvastatin Calcium 40 MG Oral Tablet (Crestor)Indicati ons:Dyslipidemia, goal LDL below 70 TAKE 1 TABLET BY MOUTH EVERY DAY 90 Tablet 3 024 Active Lisinopril 40 MG Oral TabletIndications :HTN, goal below 140/90 TAKE 1 TABLET BY MOUTH EVERY DAY IN THE MORNING 90 Tablet 3 024 Active Incruse Ellipta 62.5 MCG/ACT Inhalation Aerosol Powder Breath Activated (umeclidinium [place]) INHALE 1 PUFF BY MOUTH EVERY DAY 90 Each 3 024 Active amLODIPine Besylate 5 MG Oral Tablet (Norvasc) TAKE 1 TABLET BY MOUTH EVERY DAY IN THE MORNING 90 Tablet 3 024 Active hydrOXYzine HCl 25 MG Oral TabletIndications :Anxiety TAKE 1 TABLET BY MOUTH THREE TIMES A DAY NEEDED FOR ANXIETY 60 Tablet 3 024 Active Carvedilol 3.125 MG Oral Tablet (Coreg)Indication s:Essential hypertension with goal blood pressure less than 130/80,History of atrial flutter,Coronary artery disease of bypass graft of [place] heart with stable angina pectoris (HCC) Take 1 Tablet by mouth 2 times a day with morning and evening meals. 180 Tablet 3 024 Active Amoxicillin-Pot Clavulanate 875-125 MG Oral Tablet (Augmentin)Indica tions:COPD exacerbation (HCC) RESCUE KIT: TAKE 1 TABLET BY MOUTH EVERY 12 HOURS FOR 10 DAYS 20 Tablet 024 Active Additional Information Patient not taking.Reported on 04/09/2024 buPROPion HCl ER (XL) 150 MG Oral Tablet Extended Release 24 Hour (Wellbutrin XL)Indications:Jose han depression, recurrent, chronic (HCC) Take 1 Tablet by mouth in the morning. 90 Tablet 3 025 Active predniSONE 10 MG Oral Tablet (Deltasone)Indica tions:COPD, group D, by GOLD 2017 classification ([facility]) RESCUE KIT TAKE 5 TABS DAILY X2 DAYS, 4 TABS X2 DAYS, 3 TABS X2 DAYS, 2 TABS X2 DAYS, 1 TAB X2 DAYS For rescue pack. 30 Tablet 1 025 Active ALPRAZolam 1 MG Oral Tablet (xaNAX)Indication s:Anxiety TAKE 1 TABLET BY MOUTH EVERY DAY IN THE EVENING 30 Tablet 025 Active ALPRAZolam 1 MG Oral Tablet (xaNAX)Indication s:Anxiety TAKE 1 TABLET BY MOUTH EVERY DAY IN THE EVENING 30 Tablet 025 2024 Discontinued documented as of this encounter (statuses as of 05/08/2024) Active Problems Problem Noted Date Diagnosed Date Recurrent major depressive disorder 04/09/2024 Chronic respiratory failure with hypoxia 022 Coronary artery disease of b ypass graft of [place] heart with stable angina pectoris 01/12/2022 Prediabetes 12/28/2019 Essential hypertension with goal blood pressure less than 130/80 01/02/2019 Major depression, recurrent, chronic 09/06/2018 COPD, group D, by GOLD 2017 classification 09/02 Overview: Per COPD GOLD Classification History of non-ST elevation myocardial infarctio n (NSTEMI) 07/10/2018 History of atrial flutter 11/21/2017 Persistent insomnia 07/05/2016 Anxiety 07/05/2016 Tobacco use disorder 05/27/2014 Dyslipidemia, goal LDL below 70 02/27/2013 Overview (07/26/2015): ICD-10 update of inactive term Displacement of lumbar inter vertebral disc without myelopathy 01/09/2006 Spastic dysphonia 05/09/2001 CLASSICAL MIGRAINE WITHOU MENTION OF INTRACTABLE MIGRAINE 05/07/2000 documented as of this encounter (statuses as of 05/08/2024) Resolved Problems Problem Noted Date Diagnosed Date Resolved Date Delusional disorder 06/09/2020 04/09/19 25 Coronary artery disease invo lving [place] coronary artery without angina pectoris 10/17/2019 02/02/2022 Coronary artery disease invo lving coronary bypass graft of [place] heart without angina pectoris 01/02/2019 10/17/2019 Food insecurity 11/06/2017 11/09/2020 Overview: Per [facility] Protocol S/P ablation of atrial flutter 07/24/2017 05/16/2018 Typical atrial flutter 05/21/201711/21 Chronic bilateral low back p ain without sciatica 03/08/2016 08/28/2016 Anxiety state 12/07/2015 09/13/2016 COPD, mild 10/05/2014 09/04/2018 Overview: Per COPD GOLD Classification Viral URI with cough 05/27/2014 017 Vascular ectasias 05/07/2013 09/03/2018 Overview (05/07/2013): 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 04/30/13 Abnormal results of liver function studies 09/10/2011 05/16/2018 Genetic Sleep Disorder [facility] Other*[id number] 05/12/2011 10/21/2015 OBSTIPATION 10/07/2010 08/28/2016 Abdominal pain, generalized 10/07/2010 08/28/2016 Diarrhea 10/07/2010 08/28/2016 Pain in limb 10/07/2010 08/28/2016 Chronic rhinitis 04/16/2010 08/28/2016 Myalgia and myositis 04/16/2010 017 Other specified disease of h air and hair follicles 11/16/2009 08/28/2016 Chronic diarrhea 06/07/2009 08/28/2016 Other ventral hernia without mention of obstruction or gangrene 09/05/2007 09/03/2018 Preoperative cardiovascular examination 08/16/2007 08/28/2016 ADVANCE DIRECTIVE INFORMATION 12/23/2004 01/28/2024 Overview (12/23/2004): Yes, Copy scanned at patient level in the electronic medical record.(Go to Action, Patient File to view) Patient aware they must notify their healthcare provider of changes. Mixed dyslipidemia 08/15/2004 9 Overview (03/11/2009): Per Lipid Taxonomy. Other voice and resonance disorders 11/24/2003 08/28/2016 ABN MRI BRAIN 05/09/2001 05/16/2018 Screening for condition 05/07/200005/24 Overview (06/03/2008): Resolved per Screening Diagnosis Protocol #6 Bunion 04/17/2000 08/28/2016 Chronic sinusitis 04/22/1999 05/27/2014 Tobacco use disorder 04/22/1999 015 Major depressive disorder Overview (01/16/2017): ICD-10 update of inactive term HYPERLIPIDEMIA NEC-NOS 02/17 Overview (02/17/2009): Per Lipid Taxonomy ADULT PHYSICAL ABUSE 017 documented as of this encounter (statuses as of 05/08/2024) Immunizations Name Administration Dates Next Due COVID-19 mRNA, LNP-s, No Pre serve, 2-Dose Series (Truveris) 02/12/2021,06/12/2020,05/22/2020 COVID-19, LNP-s, No Preserve , Gustavo-sucrose, Ages 12+ (Pfizer) 10/06/2021 Covid-19, Mrna, Lnp-s, Pf, B ivalent, 30 Mcg, IM, 12 yrs and above (Pfizer) 01/15/2022 Pneumococcal Conjugate Vacc, 13 Valent (Prevnar) 10/05/2014 Pneumococcal Polysaccharide PPV23 (Pneumovax) 11/07/2016,02/09/2006 Seasonal Influenza Vac., MDV , IM, 0.5 mL (Fluzone) 12/10/2013,12/10/2013,12/15/2011,11/25,12/22/2009,01/15/2008,03/13/20 07,02/09/2006 12/23/2019 Seasonal Influenza Virus Vac cine, Unspecified Formulation 01/05/2021,11/17/2019,12/07/2015,01/24,12/10/2013,12/15/2011,12/15/19 11,12/22/2009,01/15/2008,03/13/2007,1 04/11/2005,01/20/2002,02/25/2001 Seasonal Influenza, High Dos e, Trivalent, PF, IM (Fluzone HD) 02/19/2024,11/17/2019,02/11/2019 Seasonal Influenza, Quadriva lent Hd (Fluzone Hd) 04/18/2023,01/10/2022,01/05/2021 Seasonal Influenza, Quadriva lent Hd, 65+ Yrs 11/14/2019 Seasonal Influenza, Quadriva lent, No Preserve, IM 12/07/2015,02/08/2015 TDAP (age 10 and older)(Boostrix) 11/21/2017 11/22/2027 TDAP, Age 7 and older, IM (Adacel) 01/15/2008 Varicella Zoster Vaccine (Adult) 09/01/2014 documented as of this encounter Social History Tobacco Use Types Packs/Day Years Used Date Smoking Tobacco: Every Day Cigarettes 1 55 Passive Smoke Exposure: Past Smokeless Tobacco: Never Alcohol Use Standard Drinks/Week Comments Yes 0 (1 standard drink = 0.6 oz pur e alcohol) rare PHQ-2 Answer Date Recorded PHQ Adult Total Score 17 07/16/2023 Hunger Vital Sign Answer Date Recorded Within the past 12 months, y ou worried that your food would run out before you got the money to buy more. Never true 02/19/20 24 Within the past 12 months, t he food you bought just didn't last and you didn't have money to get more. Never true 02/19/2024 Childcare Answer Date Recorded Do you feel overwhelmed with taking care of a child, family member or friend? No 02/19/2024 Does your family need help f inding childcare? (Household - for ages 0-17 years) Not on file 02/19/2024 Clothing Answer Date Recorded Have you been unable to get clothing when it was really needed? No 02/19/2024 Is your family able to get c lothes or diapers when needed? (Household - for ages 0-17 years) Not on file 02/19/2024 Personal Safety Answer Date Recorded Do you feel unsafe or have concerns for your saf ety? No 02/19/2024 Do you have concerns for you r family's safety? (Household - for ages 0-17 years) Not on file 02/19/2024 Utilities Answer Date Recorded Do you have trouble paying y our heating, water, or electric bill? No 02/19/2024 Is your family able to pay t he heat, water, or electric bill? (Household - for ages 0-17 years) Not on file 02/19/2024 Does your family have access to good internet? (Household - for ages 0-17 years) Not on file 02/19/2024 Employment Status Answer Date Recorded Are you unemployed or without regular income? No 02/19/2024 Does the household have a re gular source of income? (Household - for ages 0-17 years) Not on file 02/19/2024 Social Connections Answer Date Recorded How often do you feel lonely or isolated from th ose around you? Never 02/19/2024 Financial Resource Strain Answer Date R ecorded Do you have any trouble payi ng for your medications, or do you think you might in the future? No 02/19/2024 Does your family have troubl e paying for medicine? (Household - for ages 0-17 years) Not on file 02/19/2024 Transportation Needs Answer Date Record ed Do you have trouble getting a ride to medical visits or work? (Adult - for ages 18 years and over) Not on file 02/19/2024 Does your family have a hard time getting a ride to doctors visits? (Household - for ages 0-17 years) Not on file 02/19/2024 Has lack of transportation k ept you from medical appointments, meetings, work, or from getting things needed for daily living? Check all that apply. No 02/19/2024 Do you (or your family) have trouble finding or paying for a ride (transportation)? (Household - for ages 0-17 years) Not on file 02/19/2024 Housing Stability Answer Date Recorded Do you currently live in a s helter or have no steady place to sleep at night? No 02/19/2024 Do you think you are at risk of becoming homeless? (Adult - for ages 18 years and over) Not on file 02/19/2024 Does your family worry about paying for your home or becoming homeless? (Household - for ages 0-17 years) Not on file 1 04/20/2023 Are you homeless or worried that you might be in the future? No 02/19/2024 Are you (or your family) vinicio eless or worried that you might be in the future? (Household - for ages 0-17 years) Not on file Food Insecurity Answer Date Recorded Do you need food for this week? No 02/19/2024 Are you able to get enough f ood for your family? (Household - for ages 0-17 years) Not on file 02/19/2024 Does your family need food t his week? (Household - for ages 0-17 years) Not on file 02/19/2024 Do you always have enough fo od for your family? (Household - for ages 0-17 years) Not on file 02/19/2024 Food Insecurity Answer Date Recorded Within the past 12 months, y ou worried that your food would run out before you got the money to buy more. Never true 02/19/20 24 Within the past 12 months, t he food you bought just didn't last and you didn't have money to get more. Never true 02/19/2024 Do you need food for this week? No 02/19/2024 Comments No Sex and Gender Information Value Date Recorded Sex Assigned at Female 07/09/2018 1:14 PM EDT Legal Sex Female 7:21 AM EST Gender Identity Female 07/09/2018 1:14 PM EDT Sexual Orientation Straight 07/09/2018 1: 14 PM EDT Occupation Industry Job Start Date Job End Date Not on file Not on file Not on file Not on file documented as of this encounter Miscellaneous Notes * Telephone Encounter - Brina Barrios MD - 05/08/2024 1:55 PM ESTSigned Prescriptions: Disp Refills ALPRAZolam 1 MG Oral Tablet (xaNAX) 30 Tab*0 Sig: TAKE 1 TABLET BY MOUTH EVERY DAY IN THE EVENING Authorizing Provider: BRINA BARRIOS * Telephone Encounter - Monica Simmons [facility] - 05/07/2024 9:18 AM ESTPending Prescriptions: Disp Refills ALPRAZolam 1 MG Oral Tablet [Pharmacy Med *30 Tab*0 Sig: TAKE 1 TABLET BY MOUTH EVERY DAY IN THE EVENING * Telephone Encounter - Monica Simmons [facility] - 05/07/2024 9:15 AM EST I have reviewed the patients controlled substance dispensing history in the Prescription Drug Monitoring Program in compliance with the [facility] regulations before prescribing a controlled substance. PDMP checked on 05/07/2024. Pending Prescriptions: Disp Refills ALPRAZolam 1 MG Oral Tablet (xaNAX) [Phar*30 Tab*0 Sig: TAKE 1 TABLET BY MOUTH EVERY DAY IN THE EVENING Last Visit: 04/09/2024 (in office), Visit date not found (telemedicine) Next Visit: 06/27/2024 Date medication was last filled: 04/13/24 Date medication is due for refill: 05/12/24 Pharmacy: [id number] Is this request for a controlled substance? Yes and Urine Drug Screen Not completed Toxicology results: No results found. However, due to the size of the patient record, not all encounters were searched.Please check Results Review for a complete set of results. Please approve if appropriate. Thanks, Monica Simmons, PharmD Clinical Pharmacist [facility] [phone] 05/07/2024 9:18 AM documented in this encounter Plan of Treatment Upcoming Encounters Date Type Department Care Team (Late st Contact Info) Description 06/27/2024 9:40 AM EDT Office Visit [facility] [address] [place] [phone] Brina Barrios MD [address] [place] [phone] Health Maintenance Due Date Last Done Comments Alpha-1 Antitrypsin 12/17/1963 Adult Wellness Visit 11/07/2017 11/07/2016 *ADVANCE DIRECTIVE NOT ON FILE 09/07/2018 Colonoscopy 01/28/2022 01/28/2019, 01/25, 02/13/2017, Additional history exists DISCUSS TOBACCO CESSATION (REFER TO SMARTSET #3291) 02/02/2023 02/02/2022, 08/19/2021 COVID-19 Vaccine ( season) 2023 05/13/2023, 01/15/2022, 10/06/2021, Additional history exists HbA1c 04/18/2024 04/18/2023, 12/25, 10/01/2020, Additional history exists Depression Monitoring 07/15/2024 07/16/2023 , 07/11/2023, 07/11/2023 GFR 10/09/2024 10/10/2023, 03/27, 01/12/2022, Additional history exists Albumin/Creatinine Ratio 01/12/2025 01/12/2022 DXA Scan 02/18/2025 Postponed from 1945 (Patient Declined After Education) Zoster Vaccines (2 of 3) 02/18/2025 09/01/2014 Pos tponed from 10/27/2014 (Patient Declined After Education) O2 ASSESSMENT COMPLETED IN PAST YEAR FOR COPD 04/09/2025 04/09/2024 DTap/Tdap Vaccines (3 - Td or Tdap) 11/22/2027 11/21/2017, 01/15/2008, 09/20/1999 Pneumococcal Vaccine: 50+ Years Completed 11/07/2016, 10/05/2014, 02/09/2006 Lung Cancer Screening Completed 11/02/2020 , 03/12/2019, 05/15/2017 Influenza Vaccine (FLU shot) Completed 02/19/2024, 04/18/2023, 01/05/2023, Additional history exists HPV (Gardasil) Vaccine Aged Out No lo nger eligible based on patient's age to complete this topic Hepatitis B Vaccine Aged Out No longe r eligible based on patient's age to complete this topic MENINGOCOCCAL (MENACTRA/MENVEO) Aged Out No longer eligible based on patient's age to complete this topic documented as of this encounter Medical Devices Not on filedocumented as of this encounter Visit Diagnoses Diagnosis Anxiety Anxiety state, unspecified documented in this encounter Advance Directives * No Code Status (Latest Code Status on File) Date Activated Date Inactivated Comments 08/28/2003 2:18 PM 08/28/2003 2:18 PM 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
--- OUTSIDE RECORDS SUMMARY | 2024-05-10 11:49 | External Medical Summary | Summary of Care ---
Author Name Unknown Organization [facility] Address [address] [place] [address] Phone [phone] Care Team Providers Care Marine Design Engineer Name Role Phone Merlin Barrios MD Primary Care Provider Reason for Visit * Reason Onset Date Comments Encounter Created in Error 04/25/2024 Encounter Details Date Type Department Care Team (Late st Contact Info) Description 04/25/2024 Telephone Access Center, [facility] [address] [facility] *DO NOT REMOVE THIS DEPARTMENT* [place] R[place]IN [address] Services, Scheduling [address] [place] [address] Encounter Created in Error Allergies No known active allergiesdocumented as of this encounter (statuses as of 04/25/2024) Medications Cyanocobalamin (B-12) 1000 MCG TBCR Take [...] a day with morning and evening meals. 11/22/19 18 Active [place]-3 Fatty Acids (FISH OIL) 1000 MG Capsule Take 1 Capsule by mouth at bedtime. 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 Use 2 liters oxygen with activity. Needs small oxygen tanks as unable to move large tanks. Use 2 LPM with sleep 1 Each 02/03/20 22 Active Nicotine 21 MG/24HR Transdermal Patch 24 Hour (Nicoderm CQ) Place 1 Patch topically on the skin daily. 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 up to 3 doses in 15 minutes 75 Tablet 3 12/21/19 23 Active Isosorbide Mononitrate ER 60 MG Oral Tablet Extended Release 24 Hour (Imdur) TAKE 1 TABLET BY MOUTH EVERY DAY 90 Tablet 3 05/11/19 24 Active PARoxetine HCl 30 MG Oral Tablet (Paxil) TAKE 2 TABLETS BY MOUTH EVERY DAY 180 Tablet 3 06/23/19 24 Active Fluticasone Furoate-Vilanterol 100-25 MCG/ACT Inhalation Aerosol Powder Breath Activated (BREO ellipta) Inhale 1 Puff by mouth in the morning. 180 Blister Dosing Unit 3 07/02/19 24 Active Albuterol Sulfate HFA 108 (90 Base) MCG/ACT Inhalation Aerosol SolutionIndication s:COPD exacerbation (HCC) TAKE 2 PUFFS BY MOUTH EVERY 6 HOURS NEEDED FOR WHEEZE 54 g 3 09/11/19 24 Active Rosuvastatin Calcium 40 MG Oral Tablet (Crestor)Indicatio ns:Dyslipidemia, goal LDL below 70 TAKE 1 TABLET BY MOUTH EVERY DAY 90 Tablet 3 09/26/19 24 Active Lisinopril 40 MG Oral TabletIndications: HTN, goal below 140/90 TAKE 1 TABLET BY MOUTH EVERY DAY IN THE MORNING 90 Tablet 3 10/26/19 24 Active Incruse Ellipta 62.5 MCG/ACT Inhalation Aerosol Powder Breath Activated (umeclidinium [place]) INHALE 1 PUFF BY MOUTH EVERY DAY 90 Each 3 11/13/19 24 Active amLODIPine Besylate 5 MG Oral Tablet (Norvasc) TAKE 1 TABLET BY MOUTH EVERY DAY IN THE MORNING 90 Tablet 3 12/15/19 24 Active hydrOXYzine HCl 25 MG Oral TabletIndications: Anxiety TAKE 1 TABLET BY MOUTH THREE TIMES A DAY NEEDED FOR ANXIETY 60 Tablet 3 01/29/20 24 Active Carvedilol 3.125 MG Oral Tablet (Coreg)Indications :Essential hypertension with goal blood pressure less than 130/80,History of atrial flutter,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 180 Tablet 3 02/19/20 24 Active Amoxicillin-Pot Clavulanate 875-125 MG Oral Tablet (Augmentin)Indicat ions:COPD exacerbation (HCC) RESCUE KIT: TAKE 1 TABLET BY MOUTH EVERY 12 HOURS FOR 10 DAYS 20 Tablet 03/03/20 24 Active Additional Information Patient not taking.Reported on 04/09/2024 buPROPion HCl ER (XL) 150 MG Oral Tablet Extended Release 24 Hour (Wellbutrin XL)Indications:Fernandez or depression, recurrent, chronic (HCC) Take 1 Tablet by mouth in the morning. 90 Tablet 3 04/09/19 25 Active predniSONE 10 MG Oral Tablet (Deltasone)Indicat ions:COPD, group D, by GOLD 2017 classification (HCC) RESCUE KIT TAKE 5 TABS DAILY X2 DAYS, 4 TABS X2 DAYS, 3 TABS X2 DAYS, 2 TABS X2 DAYS, 1 TAB X2 DAYS For rescue pack. 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 01/12/2022 Prediabetes [...] as of this encounter (statuses as of 04/25/2024) Resolved Problems Problem Noted Date Diagnosed Date Resolved Date Delusional disorder 06/09/2020 04/09/19 25 Coronary artery disease invo lving [place] coronary artery without angina pectoris 10/17/2019 02/02/2022 Coronary artery disease invo lving coronary bypass graft of [place] heart without angina pectoris 01/02/2019 10/17/2019 Food [...] studies 09/10/2011 05/16/2018 Genetic Sleep Disorder Resea [facility] Other*[id number] 05/12/2011 10/21/2015 OBSTIPATION 10/07/2010 08/28/2016 Abdominal pain, [...] as of this encounter (statuses as of 04/25/2024) Immunizations Name Administration Dates Next Due COVID-19 mRNA, LNP-s, No Pre serve, 2-Dose Series ([employer]) 02/12/2021,06/12/2020,05/22/2020 COVID-19, LNP-s, No Preserve , Gustavo-sucrose, Ages 12+ ([employer]) 10/06/2021 Covid-19, Mrna, Lnp-s, Pf, B ivalent, [...] ages 0-17 years) Not on file 02/19/2024 Comments No Sex and Gender Information [...] encounter Miscellaneous Notes * Telephone Encounter - Jovita Zelaya OSA - 04/25/2024 12:59 PM EST Error documented in this encounter Plan of Treatment Upcoming Encounters Date Type Department Care Team (Late st Contact Info) Description 06/27/2024 9:40 AM EDT [facility] [place] [address] [phone] Merlin Barrios MD [address] [address] Health Maintenance Due Date Last Done Comments [...] Not on filedocumented as of this encounter Advance Directives * No Code Status (Latest Code Status on File) Date Activated Date Inactivated Comments 08/28/2003 2:18 PM 08/28/2003 2:18 PM Care Teams Marine Design Engineer Relationship Specialty Start Date End Date Merlin Barrios MD PCP - General 02/08/03 documented as of this encounter
--- OUTSIDE RECORDS SUMMARY | 2024-05-10 11:50 | External Medical Summary | Summary of Care ---
Author Name Unknown Organization [facility] Address [address] [place] [address] Phone [phone] Care Team Providers Care Community Planner Name Role Phone Merlin Barrios MD Primary Care Provider [phone] Encounter Details Date Type Department Care Team (Late st Contact Info) Description 04/17/2024 Population Health External Data Unspecified Department Allergies No known active allergiesdocumented as of this encounter (statuses as of 04/17/2024) Medications Cyanocobalamin (B-12) 1000 MCG TBCR Take [...] morning and evening meals. 11/22/19 18 Active [place]-3 Fatty Acids (FISH OIL) 1000 MG Capsule Take 1 Capsule by mouth at bedtime. 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) Take [...] as of this encounter (statuses as of 04/17/2024) Active Problems Problem Noted Date Diagnosed Date Recurrent major depressive disorder 04/09/2024 Chronic respiratory failure with hypoxia 022 Coronary artery disease of b ypass graft of [place] heart with stable angina pectoris 01/12/2022 Prediabetes [...] as of this encounter (statuses as of 04/17/2024) Resolved Problems Problem Noted Date Diagnosed Date Resolved Date Delusional disorder 06/09/2020 04/09/19 25 Coronary artery disease invo lving [place] coronary artery without angina pectoris 10/17/2019 02/02/2022 Coronary artery disease invo lving coronary bypass graft of [place] heart without angina pectoris 01/02/2019 10/17/2019 Food [...] Disorder Resea [facility] Other*[id number] 05/12/2011 10/21/2015 OBSTIPATION 10/07/2010 08/28/2016 Abdominal pain, [...] as of this encounter (statuses as of 04/17/2024) Immunizations Name Administration Dates Next Due COVID-19 mRNA, LNP-s, No Pre serve, 2-Dose Series (Search [employer] Phone) 02/12/2021,06/12/2020,05/22/2020 COVID-19, LNP-s, No Preserve , Gustavo-sucrose, Ages 12+ (Pfizer) 10/06/2021 Covid-19, Mrna, Lnp-s, Pf, B ivalent, 30 Mcg, IM, 12 yrs and above (Search to Phone) 01/15/2022 Pneumococcal Conjugate Vacc, 13 Valent (Prevnar) [...] 02/19/2024 Does the household have a re lar source of income? (Household - for ages [...] on file documented as of this encounter Plan of Treatment Upcoming Encounters Date Type Department Care Team (Late st Contact Info) Description 06/27/2024 9:40 AM EDT Office Visit [facility] Sia Roberts [address] [phone] Merlin Barrios MD [address] [address] Health Maintenance Due Date Last Done Comments Alpha-1 Antitrypsin 12/17/1963 Adult Wellness Visit 11/07/2017 11/07/2016 *ADVANCE DIRECTIVE NOT ON FILE 09/07/2018 Colonoscopy 01/28/2022 01/28/2019, 01/25, 02/13/2017, Additional history exists DISCUSS TOBACCO CESSATION (REFER TO SMARTSET #1640) 02/02/2023 02/02/2022, 08/19/2021 COVID-19 Vaccine ( season) [...] 2:18 PM 08/28/2003 2:18 PM Care Teams Community Planner Relationship Specialty Start Date End Date Merlin Barrios MD PCP - General 02/08/03 documented as of this encounter
--- OUTSIDE RECORDS SUMMARY | 2024-05-10 11:50 | External Medical Summary | Summary of Care ---
Author Name Unknown Organization [facility] Address [address] [place] [address] Phone [phone] Care Team Providers Care Roll Cutting Operator Name Role Phone Merlin Barrios MD Primary Care Provider [phone] Reason for Visit * Reason Onset Date Comments Encounter Created in Error 04/07/2024 Encounter Details Date Type Department Care Team (Late st Contact Info) Description 04/07/2024 Telephone [facility] [address] [place] [address] Merlin Barrios MD [address] [place] [address] Encounter Created in Error Allergies No known active allergiesdocumented as of this encounter (statuses as of 04/07/2024) Medications Cyanocobalamin (B-12) 1000 MCG TBCR Take [...] morning and evening meals. 11/22/19 18 Active [place]-3 Fatty Acids (FISH OIL) 1000 MG Capsule Take 1 Capsule by mouth at bedtime. 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 Use 2 liters oxygen with activity. Needs small oxygen tanks as unable to move large tanks. Use 2 LPM with sleep 1 Each 02/03/20 22 Active Nicotine 21 MG/24HR Transdermal Patch 24 Hour (Nicoderm CQ) Place 1 Patch topically on the skin daily. 28 Patch 05/26/19 23 Active Additional Information Patient not taking.Reported on 05/02/2023 SUMAtriptan Succinate 100 MG Oral TabletIndications: Migraine with aura TAKE 1 TABLET AT ONSET OF MIGRAINE, MAY REPEAT ONCE IN 2 HOURS 6 Tablet 3 09/19/19 23 Active Nitroglycerin 0.4 MG Sublingual Tablet Sublingual (Nitrostat)Indicat ions:Coronary artery disease of bypass graft of [place] heart with stable angina pectoris ([facility]) Place 1 Tablet under the tongue every [...] Base) MCG/ACT Inhalation Aerosol SolutionIndication s:COPD exacerbation ([facility]) TAKE 2 PUFFS BY MOUTH EVERY 6 [...] MCG/ACT Inhalation Aerosol Powder Breath Activated (umeclidinium [place]) INHALE 1 PUFF BY MOUTH EVERY DAY [...] flutter,Coronary artery disease of bypass graft of [place] heart with stable angina pectoris (HCC) Take 1 Tablet by mouth 2 times a day with morning and evening meals. 180 Tablet 3 02/19/20 24 Active Amoxicillin-Pot Clavulanate 875-125 MG Oral Tablet (Augmentin)Indicat ions:COPD exacerbation (HCC) RESCUE KIT: TAKE 1 TABLET BY MOUTH EVERY 12 HOURS FOR 10 DAYS 20 Tablet 03/03/20 24 Active predniSONE 10 MG Oral Tablet (Deltasone) RESCUE KIT TAKE 5 TABS DAILY X2 DAYS, 4 TABS X2 DAYS, 3 TABS X2 DAYS, 2 TABS X2 DAYS, 1 TAB X2 DAYS 30 Tablet 1 03/03/20 24 Active ALPRAZolam 1 MG Oral Tablet (xaNAX)Indications :Anxiety TAKE 1 TABLET BY MOUTH EVERY DAY IN THE EVENING 30 Tablet 03/06/20 24 Active documented as of this encounter (statuses as of 04/07/2024) Active Problems Problem Noted Date Diagnosed Date Chronic respiratory failure with hypoxia 022 Coronary artery disease of b ypass graft of [place] heart with stable angina pectoris 01/12/2022 Delusional disorder 06/09/2020 Prediabetes 12/28/2019 Essential hypertension with goal blood [...] as of this encounter (statuses as of 04/07/2024) Resolved Problems Problem Noted Date Diagnosed Date Resolved Date Coronary artery disease invo lving [place] coronary artery without angina pectoris 10/17/2019 02/02/2022 Coronary artery disease invo lving coronary bypass graft of [place] heart without angina pectoris 01/02/2019 10/17/2019 Food [...] studies 09/10/2011 05/16/2018 Genetic Sleep Disorder Resea [facility] Other*[id number] 05/12/2011 10/21/2015 OBSTIPATION 10/07/2010 08/28/2016 Abdominal pain, [...] as of this encounter (statuses as of 04/07/2024) Immunizations Name Administration Dates Next Due COVID-19 mRNA, LNP-s, No Pre serve, 2-Dose Series ([employer]) 02/12/2021,06/12/2020,05/22/2020 COVID-19, LNP-s, No Preserve , Gustavo-sucrose, Ages 12+ (Pfizer) 10/06/2021 Covid-19, Mrna, Lnp-s, Pf, B ivalent, 30 Mcg, IM, 12 yrs and above ([employer]) 01/15/2022 Pneumococcal Conjugate Vacc, 13 Valent (Prevnar) [...] No 02/19/2024 Does the household have a [facility] source of income? (Household - for ages [...] Care Team (Late st Contact Info) Description 04/09/2024 1:00 PM EST Office Visit [facility] [address] [phone] Seamus Peters MD [address] [address] 06/27/2024 9:40 AM EDT Office Visit [facility] [address] [phone] Merlin Barrios MD [address] [address] Health Maintenance Due Date Last Done Comments [...] Postponed from 1945 (Patient Declined After Education) O2 ASSESSMENT COMPLETED IN PAST YEAR FOR COPD 02/18/2025 02/19/2024 Zoster Vaccines (2 of 3) 02/18/2025 09/01/2014 Pos tponed from 10/27/2014 (Patient Declined After Education) DTap/Tdap Vaccines (3 - Td or Tdap) [...] 2:18 PM 08/28/2003 2:18 PM Care Teams Roll Cutting Operator Relationship Specialty Start Date End Date Merlin Barrios MD PCP - General 02/08/03 documented as of this encounter
--- OUTSIDE RECORDS SUMMARY | 2024-05-10 11:50 | External Medical Summary | Summary of Care ---
Author Name Unknown Organization [facility] Address [address] [place] [address] Phone [phone] Care Team Providers Care White [employer]wall Tire Buffer Name Role Phone Merlin Barrios MD Primary Care Provider [phone] Reason for Visit * Reason Onset Date Comments Advice 04/07/2024 Encounter Details Date Type Department Care Team (Late st Contact Info) Description 04/07/2024 Telephone [facility] [address] [place] [address] Merlin Barrios MD [address] [place] [address] Advice Allergies No known active allergiesdocumented as of [...] morning and evening meals. 11/22/19 18 Active [place]-3 Fatty Acids (FISH OIL) 1000 MG Capsule Take 1 Capsule by mouth at bedtime. Active Ipratropium-Albute rol 0.5-2.5 (3) MG/3ML Inhalation Solution (Duoneb)Indication s:COPD, group C, by GOLD 2017 classification (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) Use 2 L/min(Oxygen) as directed [...] ions:Coronary artery disease of bypass graft of [place] heart with stable angina pectoris ([facility]) Place 1 Tablet under the [...] Base) MCG/ACT Inhalation Aerosol SolutionIndication s:COPD exacerbation ([facility]) TAKE 2 PUFFS BY MOUTH [...] MCG/ACT Inhalation Aerosol Powder Breath Activated (umeclidinium [place]) INHALE 1 PUFF BY MOUTH EVERY DAY [...] flutter,Coronary artery disease of bypass graft of [place] heart with stable angina pectoris (HCC) Take [...] artery disease of b ypass graft of [place] heart with stable angina pectoris 01/12/2022 Delusional [...] Resolved Date Coronary artery disease invo lving [place] coronary artery without angina pectoris 10/17/2019 02/02/2022 Coronary artery disease invo lving coronary bypass graft of [place] heart without angina pectoris 01/02/2019 10/17/2019 Food [...] 05/16/2018 Genetic Sleep Disorder Resea [facility] Other*[id number] 05/12/2011 10/21/2015 OBSTIPATION 10/07/2010 08/28/2016 Abdominal pain, [...] mRNA, LNP-s, No Pre serve, 2-Dose Series ([employer]) 02/12/2021,06/12/2020,05/22/2020 COVID-19, LNP-s, No Preserve , Gustavo-sucrose, Ages 12+ (Pfizer) 10/06/2021 Covid-19, Mrna, Lnp-s, Pf, B ivalent, 30 Mcg, IM, 12 yrs and above ([employer]) 01/15/2022 Pneumococcal Conjugate Vacc, 13 Valent (Prevnar) [...] No 02/19/2024 Does the household have a [facility] source of income? (Household - [...] encounter Miscellaneous Notes * Telephone Encounter - Cleo Baig LPN - 04/07/2024 3:54 PM EST Pt is calling back to schedule ED f/u. Appt was scheduled 04/09/23. * Telephone Encounter - Evelyn Rice LPN - 04/07/2024 3:47 PM EST ED Follow Up [facility] Documentation Did patient call the office before going to ER: No When was patient seen: 03/10 Which ED: [facility] What were they seen for: Cough, difficulty breathing What testing did they have done: cxr and lab work What was the diagnosis(s) at discharge? COPD Exacerbation Any new medications prescribed: Yes, New medications: Prednisone, Augmentin How is patient feeling today: Continue to have cough and difficulty breathing Does patient have concerns today: Yes, Continues to have cough and difficulty breathing Was patient scheduled for a follow up appointment: No, reason follow up wasn't scheduled: attemptedto schedule office appt but she rides the van. She will call back to scheduled. * Telephone Encounter - Trini Nuñez OSA - 04/07/2024 3:45 PM EST Reason for patient's call: pt wanting to speak to a nurse in regards to not feeling better after completing the medication she received in the ER. Caller was transferred to Evelyn at the nurse line. documented in this encounter Plan of Treatment Upcoming Encounters Date Type Department Care Team (Late st Contact Info) Description 04/09/2024 1:00 PM EST Office Visit [facility] Roberts [address] [phone] JulySeamus MD [address] [address] 06/27/2024 9:40 AM EDT Office Visit [facility] Sia Roberts [address] [phone] Merlin Barrios MD [address] [address] Health Maintenance Due Date Last Done Comments Alpha-1 Antitrypsin 12/17/1963 Adult Wellness Visit 11/07/2017 11/07/2016 *ADVANCE DIRECTIVE NOT ON FILE 09/07/2018 Colonoscopy 01/28/2022 01/28/2019, 01/25, 02/13/2017, Additional history exists DISCUSS TOBACCO CESSATION (REFER TO SMARTSET #4724) 02/02/2023 02/02/2022, 08/19/2021 COVID-19 Vaccine ( season) [...] 2:18 PM 08/28/2003 2:18 PM Care Teams [employer] Buffer Relationship Specialty Start Date End Date Merlin Barrios MD PCP - General 02/08/03 documented as of this encounter
--- OUTSIDE RECORDS SUMMARY | 2024-05-10 11:50 | External Medical Summary | Summary of Care ---
Author Name Unknown Organization [facility] Address [address] [facility] [address] Phone [phone] Care Team Providers Care Global Compensation Manager Name Role Phone Brina Barrios MD Primary Care Provider [phone] Reason for Visit * Reason Comments eRx-Medication Refill Encounter Details Date Type Department Care Team (Late st Contact Info) Description 04/11/2024 Refill [facility] [address] [place] [address] Danny Poole MD [address] [place] [address] Anxiety Allergies No known active allergiesdocumented as of this encounter (statuses as of 04/13/2024) Medications Cyanocobalamin (B-12) 1000 MCG TBCR Take [...] with morning and evening meals. 018 Active [place]-3 Fatty Acids (FISH OIL) 1000 MG Capsule Take 1 Capsule by mouth at bedtime. Active Ipratropium-Albut sammie 0.5-2.5 (3) MG/3ML Inhalation Solution (Duoneb)Indicatio ns:COPD, group C, by GOLD 2017 classification (HCC) 3ml 4 times daily as needed with nebulizer 200 mL 5 022 Active oxygen IN GASIndications:CO PD, group C, by GOLD 2017 classification ([facility]) Use 2 L/min(Oxygen) as directed [...] tions:Coronary artery disease of bypass graft of [place] heart with stable angina pectoris ([facility]) Place 1 Tablet under the [...] Base) MCG/ACT Inhalation Aerosol SolutionIndicatio ns:COPD exacerbation ([facility]) TAKE 2 PUFFS BY MOUTH [...] MCG/ACT Inhalation Aerosol Powder Breath Activated (umeclidinium Mentor) INHALE 1 PUFF BY MOUTH EVERY DAY [...] flutter,Coronary artery disease of bypass graft of [place] heart with stable angina pectoris (HCC) Take 1 Tablet by mouth 2 times a day with morning and evening meals. 180 Tablet 3 024 Active Amoxicillin-Pot Clavulanate 875-125 MG Oral Tablet (Augmentin)Indica tions:COPD exacerbation (HCC) RESCUE KIT: TAKE 1 TABLET BY MOUTH EVERY 12 HOURS FOR 10 DAYS 20 Tablet Active Additional Information Patient not taking.Reported on 04/09/2024 buPROPion HCl ER (XL) 150 MG Oral Tablet Extended Release 24 Hour (Wellbutrin XL)Indications:Jose han depression, recurrent, chronic (HCC) Take 1 Tablet by mouth in the morning. 90 Tablet 3 025 Active predniSONE 10 MG Oral Tablet (Deltasone)Indica tions:COPD, group D, by GOLD 2017 classification ([facility]) RESCUE KIT TAKE 5 TABS DAILY X2 DAYS, 4 TABS X2 DAYS, 3 TABS X2 DAYS, 2 TABS X2 DAYS, 1 TAB X2 DAYS For rescue pack. 30 Tablet 1 025 Active Azithromycin 250 MG Oral Tablet (Zithromax)Indica tions:COPD, group D, by GOLD 2017 classification ([facility]) Take 2 tabs by mouth on the first day, then 1 tab daily on days two through five. For rescue pack. 6 Tablet 025 2024 Active ALPRAZolam 1 MG Oral Tablet (xaNAX)Indication s:Anxiety TAKE 1 TABLET BY MOUTH EVERY DAY IN THE EVENING 30 Tablet 025 Active ALPRAZolam 1 MG Oral Tablet (xaNAX)Indication s:Anxiety TAKE 1 TABLET BY MOUTH EVERY DAY IN THE EVENING 30 Tablet 024 2024 Discontinued documented as of this encounter (statuses as of 04/13/2024) Active Problems Problem Noted Date Diagnosed Date Recurrent major depressive disorder 04/09/2024 Chronic respiratory failure with hypoxia 022 Coronary artery disease of b ypass graft of [place] heart with stable angina pectoris 01/12/2022 Prediabetes [...] as of this encounter (statuses as of 04/13/2024) Resolved Problems Problem Noted Date Diagnosed Date Resolved Date Delusional disorder 06/09/2020 04/09/19 25 Coronary artery disease invo lving mo[place] coronary artery without angina pectoris 10/17/2019 02/02/2022 Coronary artery disease invo lving coronary bypass graft of [place] heart without angina pectoris 01/02/2019 10/17/2019 Food [...] studies 09/10/2011 05/16/2018 Genetic Sleep Disorder Resea [facility] Other*[id number] 05/12/2011 10/21/2015 OBSTIPATION 10/07/2010 08/28/2016 Abdominal pain, [...] as of this encounter (statuses as of 04/13/2024) Immunizations Name Administration Dates Next Due COVID-19 mRNA, LNP-s, No Pre serve, 2-Dose Series ([id number]) 02/12/2021,06/12/2020,05/22/2020 COVID-19, LNP-s, No Preserve , Gustavo-sucrose, [...] Telephone Encounter - Brina Barrios MD - 04/13/2024 8:26 AM ESTSigned Prescriptions: Disp Refills ALPRAZolam 1 MG Oral Tablet (xaNAX) 30 Tab*0 Sig: TAKE 1 TABLET BY MOUTH EVERY DAY IN THE EVENING Authorizing Provider: BRINA BARRIOS * Telephone Encounter - Jaja Damon [facility] - 04/12/2024 10:47 AM EST Pending Prescriptions: Disp Refills ALPRAZolam 1 MG Oral Tablet [Pharmacy Med *30 Tab*0 Sig: TAKE 1 TABLET BY MOUTH EVERY DAY IN THE EVENING * Telephone Encounter - Jaja Damon [facility] - 04/12/2024 10:46 AM EST I have reviewed the patients controlled substance dispensing history in the Prescription Drug Monitoring Program in compliance with the [facility] regulations before prescribing a controlled substance. PDMP checked on 04/12/2024. Pending Prescriptions: Disp Refills ALPRAZolam 1 MG Oral Tablet (xaNAX) [Phar*30 Tab*0 Sig: TAKE 1 TABLET BY MOUTH EVERY DAY IN THE EVENING Last Visit: 04/09/2024 (in office), Visit date not found (telemedicine) Next Visit: 06/27/2024 Date medication was last filled: 03/12 Date medication is due for refill: 04/10 Pharmacy: [id number] Is this request for a controlled substance? Yes and Urine Drug Screen Not completed Toxicology results: No results found. However, due to the size of the patient record, not all encounters were searched.Please check Results Review for a complete set of results. Please approve if appropriate. Thank you, Jaja Damon, PharmD Clinical Pharmacist [facility] ([facility]) 04/12/24 10:46 AM [phone] * Telephone Encounter - Zenaida Talamantes OSA - 04/12/2024 10:32 AM EST Pt calling to check status on med request. Pt will run out of meds on Sunday. She has 2 left and that's for today and tomorrow. Pls call in meds. documented in this encounter Plan of Treatment Upcoming Encounters Date Type Department Care Team (Late st Contact Info) Description 06/27/2024 9:40 AM EDT Office Visit [facility] Jane Altman [address] [place] [phone] Brina Barrios MD [address] [id number] Health Maintenance Due Date Last Done Comments Alpha-1 Antitrypsin 12/17/1963 Adult Wellness Visit 11/07/2017 11/07/2016 *ADVANCE DIRECTIVE NOT ON FILE 09/07/2018 Colonoscopy 01/28/2022 01/28/2019, 01/25, 02/13/2017, Additional history exists DISCUSS TOBACCO CESSATION (REFER TO SMARTSET #[id number]) 02/02/2023 02/02/2022, 08/19/2021 COVID-19 Vaccine ( season) [...] 2:18 PM 08/28/2003 2:18 PM Care Teams Global Compensation Manager Relationship Specialty Start Date End Date Brina Barrios MD PCP - General 02/08/03 documented as of this encounter
--- OUTSIDE RECORDS SUMMARY | 2024-05-10 11:50 | External Medical Summary | Summary of Care ---
Author Name Unknown Organization [facility] Address [address] [place] [address] Phone [phone] Care Team Providers Care Therapeutic Dietitian Name Role Phone Merlin Barrios MD Primary Care Provider [phone] Reason for Visit * Reason Comments Emergency Department Follow-Up Pt here t bulmaro for ER follow up Encounter Details Date Type Department Care Team (Late st Contact Info) Description 04/09/2024 1:00 PM EST Office Visit [facility] [address] [place] [address] JulySeamus MD [address] [place] [address] Prediabetes*; Risk and functional assessment; COPD, group D, by GOLD 2017 classification ([facility]); Chronic respiratory failure with hypoxia ([facility]); Recurrent major depressive disorder, remission status unspecified ([facility]); Major depression, recurrent, chronic ([facility]) Allergies No known active allergiesdocumented as of this encounter (statuses as of 04/09/2024) Medications Cyanocobalamin (B-12) 1000 MCG TBCR Take [...] morning and evening meals. 11/22/19 18 Active [place]-3 Fatty Acids (FISH OIL) 1000 MG Capsule Take 1 Capsule by mouth at bedtime. 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 [...] ions:Coronary artery disease of bypass graft of [place] heart with stable angina pectoris ([facility]) Place 1 Tablet under the tongue every [...] Base) MCG/ACT Inhalation Aerosol SolutionIndication s:COPD exacerbation ([facility]) TAKE 2 PUFFS BY MOUTH EVERY 6 [...] MCG/ACT Inhalation Aerosol Powder Breath Activated (umeclidinium [place]) INHALE 1 PUFF BY MOUTH EVERY DAY [...] flutter,Coronary artery disease of bypass graft of [place] heart with stable angina pectoris (HCC) Take 1 Tablet by mouth 2 times a day with morning and evening meals. 180 Tablet 3 02/19/20 24 Active Amoxicillin-Pot Clavulanate 875-125 MG Oral Tablet (Augmentin)Indicat ions:COPD exacerbation ([facility]) RESCUE KIT: TAKE 1 TABLET BY MOUTH EVERY 12 HOURS FOR 10 DAYS 20 Tablet 03/03/20 24 Active Additional Information Patient not taking.Reported on 04/09/2024 ALPRAZolam 1 MG Oral Tablet (xaNAX)Indications :Anxiety TAKE 1 TABLET BY MOUTH EVERY DAY IN THE EVENING 30 Tablet 03/06/20 24 Active buPROPion HCl ER (XL) 150 MG Oral Tablet Extended Release 24 Hour (Wellbutrin XL)Indications:Fernandez or depression, recurrent, chronic ([facility]) Take 1 Tablet by mouth in the morning. 90 Tablet 3 04/09/19 25 Active predniSONE 10 MG Oral Tablet (Deltasone)Indicat ions:COPD, group D, by GOLD 2017 classification ([facility]) RESCUE KIT TAKE 5 TABS DAILY X2 DAYS, 4 TABS X2 DAYS, 3 TABS X2 DAYS, 2 TABS X2 DAYS, 1 TAB X2 DAYS For rescue pack. 30 Tablet 1 04/09/19 25 Active Azithromycin 250 MG Oral Tablet (Zithromax)Indicat ions:COPD, group D, by GOLD 2017 classification ([facility]) Take 2 tabs by mouth on the first day, then 1 tab daily on days two through five. For rescue pack. 6 Tablet 04/09/19 25 025 Active predniSONE 10 MG Oral Tablet (Deltasone) RESCUE KIT TAKE 5 TABS DAILY X2 DAYS, 4 TABS X2 DAYS, 3 TABS X2 DAYS, 2 TABS X2 DAYS, 1 TAB X2 DAYS 30 Tablet 1 03/03/20 24 025 Discontin ued(Refil l) documented as of this encounter (statuses as of 04/09/2024) Active Problems Problem Noted Date Diagnosed Date Recurrent major depressive disorder 04/09/2024 Chronic respiratory failure with hypoxia 022 Coronary artery disease of b ypass graft of [place] heart with stable angina pectoris 01/12/2022 Prediabetes [...] as of this encounter (statuses as of 04/09/2024) Resolved Problems Problem Noted Date Diagnosed Date Resolved Date Delusional disorder 06/09/2020 04/09/19 25 Coronary artery disease invo lving [place] coronary artery without angina pectoris 10/17/2019 02/02/2022 Coronary artery disease invo lving coronary bypass graft of [place] heart without angina pectoris 01/02/2019 10/17/2019 Food [...] studies 09/10/2011 05/16/2018 Genetic Sleep Disorder Resea [facility] Other*[id number] 05/12/2011 10/21/2015 OBSTIPATION 10/07/2010 08/28/2016 Abdominal pain, [...] as of this encounter (statuses as of 04/09/2024) Immunizations Name Administration Dates Next Due COVID-19 mRNA, LNP-s, No Pre serve, 2-Dose Series ([employer]) 02/12/2021,06/12/2020,05/22/2020 COVID-19, LNP-s, No Preserve , Gustavo-sucrose, Ages 12+ (Pfizer) 10/06/2021 Covid-19, Mrna, Lnp-s, Pf, B ivalent, 30 Mcg, IM, 12 yrs and above ([employer]) 01/15/2022 Pneumococcal Conjugate Vacc, 13 Valent (Prevnar) [...] on file documented as of this encounter Last Filed Vital Signs Vital Sign Reading Time Taken Comments Blood Pressure 109/73 04/09/2024 12:08 PM EST Pulse 67 04/09/2024 12:08 PM EST Temperature 36.4 C (97.5 F) 04/09/2024 12:[address] Respiratory Rate 16 04/09/2024 12:08 PM EST Oxygen Saturation 91% 04/09/2024 12:08 PM EST Inhaled Oxygen Concentration - - Weight 98.2 kg (216 lb 6.4 oz) 04/09/2024 12:08 PM EST Height - - Body Mass Index 32.9 02/19/2024 11:46 AM EST documented in this encounter Patient Instructions * Patient Instructions* Joanna Jacinto LPN - 04/09/2024 12:11 PM EST Patient Instructions - Fall Prevention (This education is for all patients over 65 regardless of symptoms) Remember to take your current medications as prescribed. In order to prevent falls, you are encouraged to: Exercise Utilize assistive/adaptive devices Avoid multifocal lenses when walking Avoid hazards in home Maintain a regular toileting schedule Any questions please contact our office. Preventing Falls in the Home (This education is for all patients over 65 regardless of symptoms) As you get older, falls are more likely. Thats because your reaction time slows. Your muscles and joints may also get stiffer, making them less flexible. Illness, medications, and vision changes can also affect your balance. A fall could leave you unable to live on your own. To make your home safer, follow these tips: Floors Put nonskid pads under area rugs Remove throw rugs Replace worn floor coverings Tack carpets firmly to each step on carpeted stairs. Put nonskid strips on the edges of uncarpeted stairs Keep floors and stairs free of clutter and cords Arrange furniture so there are clear pathways Clean up any spills right away Bathrooms Install grab bars in the tub or shower Apply nonskid strips or put a nonskid rubber mat in the tub or shower Sit on a bath chair to bathe Use bathmats with nonskid backing Lighting Keep a flashlight in each room Put a nightlight along the pathway between the bedroom and the bathroom [place] Patient Education Copyright 2008 - 2010 [place] except where otherwise noted Preventing Falls: Exercises to Improve Balance, Flexibility, Strength, and Staying Power (This education is for all patients over 65 regardless of symptoms) Certain types of exercises may help make you less likely to fall. Try the ones below. Or do other exercises that your healthcare provider suggests. Depending on your health, you may need to start slowly. Dont let that stop you. Even small amounts of exercise can help you. Be sure to talk to yourhealthcare provider before starting any exercise program. Improve Balance Many types of exercise can help improve balance. Hugh chi and yoga are good examples. Heres another one to try. You can do it anytime and almost anywhere. Stand next to a counter or solid support. Push yourself up onto your tiptoes. Hold for 5 seconds. If you start to lose your balance, hold on to the counter. Rest and repeat 5 times. Work up to holding for 20 to 30 seconds, if you can. Increase Flexibility Being more flexible makes it easier for you to move around safely. Try exercises like the seated hamstring stretch. Sit in a chair and put one foot on a stool. Straighten your leg and reach with both hands down either side of your leg. Reach as far down your leg as you can. Hold for about 20 seconds. Go back to the starting position. Then repeat 5 times. Switch legs. Build Strength Resistance exercises help build strength. You can do them without equipment. Or you can use weights, elastic bands, or special machines. One such exercise is called the biceps curl. You can hold a 1 pound weight or even a can of soup. Do this exercise at least 3 times a week. Strive for everyday. Sit up straight in a chair. Keep your elbow close to your body and your wrist straight. Bend your arm, moving your hand up to your shoulder. Then slowly lower your arm. Repeat 5 times. Switch to the other arm. Build Your Staying Power Aerobic exercises make your heart and lungs stronger so you can keep moving longer. Walking and swimming are two of the best types of exercises you can do. Using a stationary bike is great, too. Find an aerobic exercise that you enjoy. Start slowly and build up. Even 5 minutes is helpful. Aimfor a goal of 30 minutes, at least 3 times a week. You dont have to do 30 minutes in one session. Break it up and walk a little throughout the day. More Helpful Tips Start easy. Slowly work up to doing more. Talk with your healthcare provider about the best exercises for you. Call senior centers or health clubs about exercise programs. If needed, have a family member watch you walk every so often to check your stability. Exercise with a friend. Choose an activity you both enjoy. Try exercises that you can do anytime, anywhere. Here are two examples. Have someone with you when you first try these: Practice walking by placing one foot right in front of the other. Stand up and sit down 10 times. Repeat this throughout the day. [place] Patient Education Copyright 2009 - 2010 [place] except where otherwise noted. Preventing Falls: Moving Safely Using a Cane or Walker (This education is for all patients over 65 regardless of symptoms) Keep the cane away from your feet so you dont trip. A walking aid, such as a cane or walker, can help you stay more independent and avoid falls. Remember to keep your walking aid within easy reach when youre in a chair or in bed. And learn how to use it safely so you dont injure yourself. Using a Cane If you have a stronger side, hold the cane on that side. Get your balance. Move the cane and your weaker leg forward. Support your weight on both the cane and your weaker side. Step with your stronger leg. Start again from step 1. If youre using a folding walker, be sure you know how to lock it open. Check that its locked open before each use. Using a Walker Roll the walker (or lift it, if youre using one without wheels) forward about 12 inches. Step forward with your weaker leg first. Use the walker to help keep your balance. Bring your other foot forward to the center of the walker. Start again from step 1. Helpful Tips Check with your healthcare provider about the right walking aid to use. Ask about a walker with a seat attached. Check the tips of your cane or walker to make sure they have nonskid covers. Move slowly from room to room. Dont emery. Sit down to get dressed. Use a bernice pack or backpack to keep your hands free. Get help for jobs that mean climbing, even on a stepstool. [employer] Patient Education Copyright 2008 - 2010 [place] except where otherwise noted. Urinary Incontinence Plan of Care Documentation: (This education is for all patients over 65 regardless of symptoms) Current medications reconciled. Patient encouraged to: Practice kegal exercises Provide education materials Use the restroom every 2 hours throughout the day Limit caffeine, alcohol, spicy foods and acidic foods Keep a bladder diary Limit fluid intake 3-4 hours before bed Lose weight Prevent constipation Take fluid pills at a time when you can get to the bathroom quickly Control sugar better if diabetic Limit fluid intake to 60 oz. per day Wear support stockings (TEDs)if you have edema Joanna Jacinto LPN 04/09/2024 Kegel Exercises Kegel exercises dont require special clothing or equipment. Theyre easy to learn and simple to do. And if you do them right, no one can tell youre doing them, so they can be done almost anywhere. Your doctor, nurse, or physical therapist can answer any questions you have and help you get started. A Weak Pelvic Floor The pelvic floor muscles may weaken due to aging, and vaginal childbirth, injury, surgery, chronic cough, or lack of exercise. If the pelvic floor is weak, your bladder and other pelvic organs may sag out of place. The urethra may also open too easily and allow urine to leak out. Kegel exercises can help you strengthen your pelvic floor muscles so they can better support the pelvic organs and control urine flow. How Kegel Exercises Are Done Try each of the Kegel exercises described below. When youre doing them, try not to move your leg, buttock, or stomach muscles. While youre urinating, try to stop the flow of urine. Start and stop it as often as you can. Contract as if you were stopping your urine stream, but do it when youre not urinating. Tighten your rectum as if trying not to pass gas. Contract your anus, but dont move your buttocks. Helpful Hints Do your Kegels as often as you can. The more you do them, the faster youll feel the results. Pick an activity you do often as a reminder. For instance, do your Kegels every time you sit down. Tighten your pelvic floor before you sneeze, get up from a chair, cough, laugh, or lift. This protects your pelvic floor from injury and can help prevent urine leakage. Try to hold each Kegel for a slow count to five. You probably wont be able to hold them for thatlong at first, but keep practicing. It will get easier as your pelvic floor gets stronger. Eventually, special weights that you place in your vagina may be recommended to help make your Kegels even more effective. [place] Patient Education Copyright 2008 - 2010 [place] except where otherwise noted. Here are some helpful tips for your urinary incontinence: (This education is for all patients over 65 regardless of symptoms) Practice Kegel exercises Use the restroom every 2 hours throughout the day Limit caffeine, alcohol, spicy foods, and acidic foods Keep a bladder diary Limit fluid intake 3-4 hours before bed Lose weight Prevent constipation Take fluid pills at a time when can get to the bathroom quickly Control sugar better if diabetic Limit fluid intake to 60 oz. per day Any questions, please feel free to contact our office. documented in this encounter Progress Notes * Seamus Peters MD - 04/09/2024 12:48 PM EST Images from the original note were not included. Subjective Samantha Wilder is a 78 year old female that presents for Emergency Department Follow-Up (Pt here today for ER follow up) History of Present Illness A 78-year-old patient with a significant past medical history of prediabetes, COPD, chronic respiratory failure with hypoxia, dyslipidemia, hypertension, coronary artery disease, depression, anxiety,and tobacco use presents for follow-up after multiple recent emergency room visits due to COPD exacerbation. The patient reports that her COPD symptoms, including shortness of breath and cough, initially improved after her last ER visit but have since worsened. She completed a course of steroids and amoxicillin without significant improvement. She also reports a significant increase in fatigue, generalized body aches, and depression. The patient describes her mood as persistently low, with a lack of interest in activities and a desire to sleep most of the day. She also reports a significant increase in sputum production, which is dark green and chunky. The patient continues to smoke and hasa history of home with forceps delivery. Objective Vitals: 04/09/24 1208 Temp: 97.5 F (36.4 C) Pulse: 67 Resp: 16 SpO2: 91% BP: 109/73 Physical Exam VITALS: SaO2- 91% CHEST: Few scattered wheezes, no increased work of breathing. CARDIOVASCULAR: Heart regular rate and rhythm. I have reviewed the following results: Results LABS Biofire panel: Negative (03/10/2024) RADIOLOGY Chest x-ray: No evidence of focal lung consolidation (03/10/2024) Assessment and Plan Assessment & Plan COPD Exacerbation Recent exacerbation treated with steroids and antibiotics, but symptoms have worsened since completion of treatment. Noted to have green, chunky sputum. No distress or hypoxia noted on exam, but scattered wheezes present. -Continue Incruse Ellipta daily and Albuterol as needed. -Try [id number] Mucinex to help with mucus production. -Provide a rescue pack of Prednisone and Azithromycin for use if symptoms worsen significantly. Depression Patient reports constant feelings of depression despite maximum dose of Paroxetine. -Add Wellbutrin 150mg daily to current regimen and monitor for improvement. Hypertension Well controlled on current regimen of Amlodipine, Carvedilol, and Lisinopril. -Continue current regimen. Tobacco Use Patient acknowledges the benefits of cessation but has not yet decided to quit. -Consider prescription aids for smoking cessation if patient decides to quit in the future. Follow-up Patient has an appointment scheduled with Dr. Lloyd in June. -Keep current appointment unless symptoms worsen. Prediabetes (Primary) Risk and functional assessment COPD, group D, by GOLD 2017 classification (HCC) - predniSONE 10 MG Oral Tablet (Deltasone); RESCUE KIT TAKE 5 TABS DAILY X2 DAYS, 4 TABS X2 DAYS, 3TABS X2 DAYS, 2 TABS X2 DAYS, 1 TAB X2 DAYS For rescue pack. - Azithromycin 250 MG Oral Tablet (Zithromax); Take 2 tabs by mouth on the first day, then 1 tab daily on days two through five. For rescue pack. Chronic respiratory failure with hypoxia (HCC) Recurrent major depressive disorder, remission status unspecified (HCC) Major depression, recurrent, chronic (HCC) - buPROPion HCl ER (XL) 150 MG Oral Tablet Extended Release 24 Hour (Wellbutrin XL); Take 1 Tablet by mouth in the morning. Wrap-Up Follow Up: Return if symptoms worsen or fail to improve. Text in this note was generated using an [employer] documentation service. I discussed the use of a device to record and summarize our discussion today. All persons present during the encounter consented to its use. * Joanna Jacinto LPN - 04/09/2024 12:11 PM EST Hemoglobin a1c ordered today. Provider aware. Joanna Jacinto LPN documented in this encounter Nursing Notes * Joanna Jacinto LPN - 04/09/2024 12:03 PM EST Chief Complaint Patient presents with Emergency Department Follow-Up Pt here today for ER follow up documented in this encounter Plan of Treatment Upcoming Encounters Date Type Department Care Team (Late st Contact Info) Description 06/27/2024 9:40 AM EDT Office [facility] [place] [address] [phone] Merlin Barrios MD [address] [address] Health Maintenance Due Date Last Done Comments [...] as of this encounter Visit Diagnoses Diagnosis Prediabetes- Primary Other abnormal glucose Risk and functional assessment Screening for unspecified condition COPD, group D, by GOLD 2017 classification (HCC) Chronic respiratory failure with hypoxia (HCC) Chronic respiratory failure Recurrent major depressive disorder, remission status unspecified (HCC) Major depression, recurrent, chronic (HCC) Major depressive disorder, recurrent episode, unspecified documented in this encounter Advance Directives * No Code Status (Latest Code Status on File) Date Activated Date Inactivated Comments 08/28/2003 2:18 PM 08/28/2003 2:18 PM Care Teams Therapeutic Dietitian Relationship Specialty Start Date End Date Merlin Barrios MD PCP - General 02/08/03 documented as of this encounter
--- OUTSIDE RECORDS SUMMARY | 2024-05-10 11:50 | External Medical Summary | Summary of Care ---
Author Name Unknown Organization [facility] Address [address] [place] [address] Phone [phone] Care Team Providers Care Globe Cleaner Name Role Phone Merlin Barrios MD Primary Care Provider Reason for Visit * Reason Onset Date Comments Encounter Created in Error 04/25/2024 Encounter Details Date Type Department Care Team (Late st Contact Info) Description 04/25/2024 Telephone Access Center, [facility] [address] [facility] *DO NOT REMOVE THIS DEPARTMENT* [place] [address] Services, Scheduling [address] [place] [address] Encounter Created in Error Allergies No known [...] morning and evening meals. 11/22/19 18 Active [place]-3 Fatty Acids (FISH OIL) 1000 MG Capsule Take 1 Capsule by mouth at bedtime. 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 ([facility]) Use 2 L/min(Oxygen) as directed [...] ions:Coronary artery disease of bypass graft of [place] heart with stable angina pectoris (HCC) Place [...] MCG/ACT Inhalation Aerosol Powder Breath Activated (umeclidinium [place]) INHALE 1 PUFF BY MOUTH EVERY DAY [...] flutter,Coronary artery disease of bypass graft of [place] heart with stable angina pectoris (HCC) Take [...] artery disease of b ypass graft of [place] heart with stable angina pectoris 01/12/2022 Prediabetes [...] 04/09/19 25 Coronary artery disease invo lving [place] coronary artery without angina pectoris 10/17/2019 02/02/2022 Coronary artery disease invo lving coronary bypass graft of [place] heart without angina pectoris 01/02/2019 10/17/2019 Food [...] studies 09/10/2011 05/16/2018 Genetic Sleep Disorder [facility] Other*[id number] 05/12/2011 10/21/2015 OBSTIPATION 10/07/2010 08/28/2016 Abdominal pain, [...] mRNA, LNP-s, No Pre serve, 2-Dose Series ([employer]) 02/12/2021,06/12/2020,05/22/2020 COVID-19, LNP-s, No Preserve , Gustavo-sucrose, Ages 12+ ([employer]) 10/06/2021 Covid-19, Mrna, Lnp-s, Pf, B ivalent, [...] Description 06/27/2024 9:40 AM EDT [facility] [place] [place] [address] [phone] Merlin Barrios MD [address] [id number] Health Maintenance Due Date Last Done Comments [...] 2:18 PM 08/28/2003 2:18 PM Care Teams Globe Cleaner Relationship Specialty Start Date End Date Merlin Barrios MD PCP - General 02/08/03 documented as of this encounter
--- OUTSIDE RECORDS SUMMARY | 2024-05-10 11:51 | External Medical Summary | Summary of Care ---
Author Name Unknown Organization [facility] Address [address] [place] [address] Phone [phone] Care Team Providers Care Mash Tub Cooker Name Role Phone Merlin Barrios MD Primary Care Provider [phone] Reason for Visit * Reason Onset Date Comments Medication Refill 03/28/2024 Encounter Details Date Type Department Care Team (Late st Contact Info) Description 03/28/2024 Telephone [facility] [address] [place] [address] Merlin Barrios MD [address] [place] [address] Medication Refill Allergies No known active allergiesdocumented as of this encounter (statuses as of 03/31/2024) Medications Cyanocobalamin (B-12) 1000 MCG TBCR Take [...] morning and evening meals. 11/22/19 18 Active Otis-3 Fatty Acids (FISH OIL) 1000 MG Capsule Take 1 Capsule by mouth at bedtime. 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 C, by GOLD 2017 classification ([facility]) Use 2 L/min(Oxygen) as directed at [...] ions:Coronary artery disease of bypass graft of [place] heart with stable angina pectoris ([facility]) Place 1 Tablet under the tongue [...] Base) MCG/ACT Inhalation Aerosol SolutionIndication s:COPD exacerbation ([facility]) TAKE 2 PUFFS BY MOUTH EVERY [...] MCG/ACT Inhalation Aerosol Powder Breath Activated (umeclidinium Og[place]) INHALE 1 PUFF BY MOUTH EVERY DAY [...] flutter,Coronary artery disease of bypass graft of [place] heart with stable angina pectoris (HCC) Take [...] as of this encounter (statuses as of 03/31/2024) Active Problems Problem Noted Date Diagnosed Date Chronic respiratory failure with hypoxia 022 Coronary artery disease of b ypass graft of [place] heart with stable angina pectoris 01/12/2022 Delusional [...] as of this encounter (statuses as of 03/31/2024) Resolved Problems Problem Noted Date Diagnosed Date Resolved Date Coronary artery disease invo lving [place] coronary artery without angina pectoris 10/17/2019 02/02/2022 Coronary artery disease invo lving coronary bypass graft of [place] heart without angina pectoris 01/02/2019 10/17/2019 Food [...] studies 09/10/2011 05/16/2018 Genetic Sleep Disorder [facility] Other*[id number] 05/12/2011 10/21/2015 OBSTIPATION 10/07/2010 08/28/2016 Abdominal pain, [...] as of this encounter (statuses as of 03/31/2024) Immunizations Name Administration Dates Next Due COVID-19 mRNA, LNP-s, No Pre serve, 2-Dose Series ([employer]) 02/12/2021,06/12/2020,05/22/2020 COVID-19, LNP-s, No Preserve , Gustavo-sucrose, Ages 12+ (Pfizer) 10/06/2021 Covid-19, Mrna, Lnp-s, Pf, B ivalent, 30 Mcg, IM, 12 yrs and above ([employer]) 01/15/2022 Pneumococcal Conjugate Vacc, 13 Valent (Prevnar) [...] No 02/19/2024 Does the household have a [facility] source of income? (Household - for ages [...] encounter Miscellaneous Notes * Telephone Encounter - Irma Singer LPN - 03/31/2024 2:39 PM EST Called pt she states that she already got the refill on the prednisone and amoxicillin. * Telephone Encounter - Charlie Littlejohn OSA - 03/28/2024 4:34 PM EST Patient called back to get medication refilled. Amoxicillin-Pot Clavulanate 875- 125 MG Oral Tablet and predniSONE 10 MG Oral Tablet. * Telephone Encounter - Jessica Bush adult daycare coordinator - 03/28/2024 4:30 PM EST Patient calling in regarding prednisone. This was last prescribed by PCP office, transferring caller to Medication Refill Line for further assistance. Thank you, Jessica Bush Laboratory Coordinator [facility] 03/28/2024,4:30 PM documented in this encounter Plan of Treatment Upcoming Encounters Date Type Department Care Team (Late st Contact Info) Description 06/27/2024 9:40 AM EDT Office Visit [facility] Altman [address] [phone] Merlin Barrios MD [address] [id number] Health Maintenance Due Date Last Done Comments Alpha-1 Antitrypsin 12/17/1963 *ADVANCE DIRECTIVE NOT ON FILE 09/07/2018 Colonoscopy [...] 2:18 PM 08/28/2003 2:18 PM Care Teams Mash Tub Cooker Relationship Specialty Start Date End Date Merlin Barrios MD PCP - General 02/08/03 documented as of this encounter
--- NOTE | 2024-05-10 12:06 | Emergency Department Note ---
Impression & Plan Hypoxia, COPD exacerbation, SOB (shortness of breath), Cough, Elevated troponin, Acute electrocardiogram changes ED Provider Note NAME: PACO JOHNSON AGE: 78 SEX: F : 1945 ARRIVES VIA: Ambulance INFORMANT: [Patient] ED PROVIDER(S): [Stevo Brennan MD] CHIEF COMPLAINT: Short of breath HISTORY OF PRESENT ILLNESS: The patient is a 78-year-old female who has been ill for around 10 days. She has had a cough and some congestion as well as some shortness of breath. No fever or vomiting. She does have a history of COPD. She wears O2 at night, not during the day. She has medication for her lungs. She wears a CPAP in the evening. Today, she was short of breath more so than she had been. She was brought by ambulance for evaluation. In route, she was given an albuterol nebulizer. As per the nursing staff, the patient was placed on 2 L of oxygen when she arrived as her saturation was around 88%. PMHx/PSHx/Social Hx: See Below PHYSICAL EXAM: GENERAL: Patient is in no acute distress. HEENT: No acute trauma, normocephalic atraumatic, mucous membranes moist, no nasal congestion. NECK: No stridor, no adenopathy, no meningismus, trachea is midline. LUNGS: Scattered wheezing with some occasional crackles. Dry cough noted. Diminished breath sounds bilaterally. No respiratory distress. HEART: Without murmurs gallops or rubs, regular rate and rhythm. ABDOMEN: Soft, nontender, no peritonitis. EXTREMITIES: No cyanosis, full range of motion of all the joints without pain or difficulty. Mild bilateral pedal edema. NEUROLOGIC: Oriented x 3, no acute motor or sensory deficits, no focal weakness. SKIN: No jaundice, no diaphoresis. DIFFERENTIAL DIAGNOSIS: Bronchitis or pneumonia, influenza or COVID-19, CHF, COPD flare, among others. EMERGENCY DEPARTMENT PROCEDURES: MEDICAL DECISION MAKING: There is no leukocytosis or concerning anemia. There is a normal platelet count. No coagulopathy. VBG shows some subtle CO2 retention with a very slight acidosis. There was no significant electrolyte abnormality or kidney failure. No concerning liver enzyme elevation. ECG showed a sinus rhythm, no obvious ischemia. Cardiac enzyme testing x 1 was slightly elevated. This troponin elevation could be secondary to cardiac injury or just her hypoxia/dyspnea. Urinalysis did not show findings of infection. Respiratory bio fire was negative. Chest x-ray did not show pneumonia or CHF. On exam, patient was hypoxic without O2 supplementation. She was wheezing. The patient received a DuoNeb, a second DuoNeb was given. She was given IV Solu-Medrol. The patient is persistently hypoxic. She likely has an upper respiratory infection that has caused a flare of COPD. The patient is in need of hospital stay for further pulmonary care. I did speak with the patient and case management, the on-call hospitalist was consulted. Prior/Outside records/notes reviewed: Today's EMS notes describing her presentation and transport to this hospital. ECG per my interpretation: Indication was shortness of breath. The ECG shows a presumed sinus rhythm with PACs. The rate is 63. There are inverted T waves in the anterior and lateral leads. There is no acute ST elevation. No PVCs. The QTc was 425. Compared to an ECG from 10 March 2024, the inverted T waves laterally and across the anterior leads appear new. Continuous Cardiac Monitoring per my interpretation: An order was placed for continuous cardiac monitoring. The monitor shows a rate of 69 with normal sinus rhythm. Imaging/x-ray results per my interpretation: Chest x-ray shows some chronic change, I see no pneumonia or CHF. Chronic Medical/Social conditions affecting care: Advanced age, history of COPD. Care/Management discussed with: Case management, the on-call hospitalist. Level of care consideration(s): After review of the information above and other included data: --I believe the patient requires escalation of care to admission DISPOSITION: Admission Past Med/Surg History Problem List Acute electrocardiogram changes (Acute) Elevated troponin (Acute) Cough (Acute) SOB (shortness of breath) (Acute) COPD exacerbation (Acute) Hypoxia (Acute) Acute hypoxemic respiratory failure Status migrainosus without intractable migraine Acute intractable headache (Acute) Pneumonia Prediabetes Chest pain at rest Dyslipidemia, goal LDL below 70 Hypertensive urgency Abnormal EKG ASCVD (arteriosclerotic cardiovascular disease) Acute exacerbation of chronic obstructive pulmonary disease (COPD) (Acute) Acute electrocardiogram changes (Acute) DVT prophylaxis Abnormal CT scan, stomach Pneumonia due to COVID-19 virus Pneumonia (Acute) CAD (coronary artery disease) Nonobstructive by 2019 cardiac cath. NSTEMI ruled 2/2 coronary spasm. Hypoxia (Acute) Synovial cyst of right popliteal space Anxiety History of discectomy Acute respiratory failure with hypoxia COPD exacerbation Pneumonia Depression . Generalized anxiety disorder Hypertension COPD (chronic obstructive pulmonary disease) 2.5 LPM VIA N/C ONLY AT HS. Advair daily, rarely using rescue inhaler, ~ 3x per month Continues to smoke 1ppd Atrial flutter s/p ablation 05/2017. Follows with [facility]. History of breast biopsy History of laparoscopy 2/2 endometriosis Medical History Migraines Acute exacerbation of chronic obstructive pulmonary disease (COPD) COVID-19 Tear of lateral meniscus of right knee Tear of medial meniscus of right knee Degenerative disc disease Osteoarthritis Anxiety and depression Sleep apnea "MILD" ONLY WEARS O2 AT 2.5L AT HS Myocardial Infarction NSTEMI 04/2018 [facility] Hyperlipidemia On home oxygen therapy 2.5L AT HS NSTEMI (non-ST elevated myocardial infarction) Surgical History History of section X 2 History of colonoscopy History of dilatation and curettage History of open reduction and internal fixation (ORIF) procedure RT ANKLE History of discectomy LUMBAR History of tooth extraction History of eye surgery RT EYE (CAN'T REMEMBER WHAT FOR) History of cardiac cath 04/2018 for NSTEMI, Nonobstructive moderate proximal to mid LAD disease. History of cardiac radiofrequency ablation 2018 Family History Father Hypertension Brother Diabetes Depression Family history of diabetes mellitus Sister Depression Family history of diabetes mellitus Social History Smoking Status: Former smoker Tobacco Type: Cigarettes Cigarettes Per Day: 10; Second Hand Exposure: No; Do You Dip or Chew Tobacco: No; Hx Alcohol Use: No Hx Substance Use: No Preferred Language: Czech Communication Ability: Effective Communication Ability Comment: Inhibited only by SOB. Visual Impairment: No Limitations Hearing Ability: Normal Cigarette Tester Required: No Beliefs That Will Affect Care: None marital status: Current Living Situation: Alone How many Children do You have: 2 Feels Safe at Home: Yes Assistive Devices: Cane and Walker Allergies Allergies Allergy/AdvReac Type Severity Reaction Status Date / Time No Known Allergies Allergy Verified 03/18/23 20:17 Home Meds Home Medications Medication Instructions Recorded Confirmed ascorbic acid (vitamin C) 1,000 mg 500 mg PO QAM 05/10/18 06/01/23 tablet (Vitamin C) aspirin 81 mg tablet,delayed 81 mg PO QAM 05/10/18 06/01/23 release calcium 600 mg (as carbonate)-vit 1 tab PO DAILY 05/10/18 06/01/23 D3 20 mcg (800 unit) chewable tablet (Caltrate plus D) omega 7-mqu-hvt-fish oil 1,000 mg 1 cap PO HS 05/10/18 06/01/23 (120 mg-180 mg) capsule (Fish Oil) paroxetine HCl 30 mg tablet 60 mg PO DAILY 05/10/18 06/01/23 albuterol sulfate 90 mcg/actuation 2 puff inhalation Q6H PRN SHORT OF 01/14/19 06/01/23 aerosol inhaler BREATH cyanocobalamin (vitamin B-12) 1,000 mcg PO HS 01/14/19 06/01/23 1,000 mcg tablet nitroglycerin 0.4 mg sublingual 0.4 mg sublingual USEASDIRECTD PRN 01/14/19 06/01/23 tablet Chest Pain sumatriptan succinate 100 mg tablet 100 mg PO UD PRN Migraine Headache 01/14/19 06/01/23 rosuvastatin 40 mg tablet 40 mg PO HS 10/10/19 06/01/23 umeclidinium 62.5 mcg/actuation 1 inh inhalation DAILY 02/10/20 06/01/23 blister powder for inhalation (Incruse Ellipta) lisinopril 40 mg tablet 40 mg PO QAM 10/20/22 06/01/23 albuterol sulfate 2.5 mg/3 mL 2.5 mg inhalation DIRECTED PRN 03/18/23 06/01/23 (0.083 %) solution for nebulization Shortness Of Breath Or Wheezing carboxymethylcellulose sodium 1 % 1 drp OPB TID PRN as directed 03/18/23 06/01/23 eye drops (Artificial Tears (carboxymethylcellulose)) ipratropium 0.5 mg-albuterol 3 mg 3 ml NEB QIDR PRN NEEDED PER [facility] 03/18/23 06/01/23 (2.5 mg base)/3 mL nebulization soln prednisone 10 mg tablet 0 mg PO DIRECTED PRN RESCUE KIT 03/18/23 03/18/23 amlodipine 5 mg tablet 5 mg PO QAM 06/01/23 06/01/23 fluticasone 250 mcg-salmeterol 50 1 ea inhalation AMHS 06/01/23 mcg/dose blistr powdr for inhalation Previous Rx's Medication Instructions Recorded alprazolam 1 mg tablet 1 mg PO HS #10 tabs 02/18/20 carvedilol 3.125 mg tablet 3.125 mg PO BID #60 tabs 11/14/21 isosorbide mononitrate 60 mg 60 mg PO QAM #30 tabs 11/14/21 tablet,extended release 24 hr etodolac 200 mg capsule 200 mg PO Q12H PRN pain #10 caps 06/01/23 sennosides 8.6 mg capsule (senna) 8.6 mg PO BID #10 caps 06/01/23 prednisone 10 mg tablet 10 mg PO DIRECTED #31 tabs 03/10/24 Results & Data (ED) Vital Signs Vital Signs - 24 hr 05/10/24 11:56 05/10/24 11:56 05/10/24 12:00 Temperature 36.8 C Temperature Source Oral Pulse Rate 69 Pulse Rate [Apical] Pulse Rate from SpO2 Sensor Respiratory Rate 18 Blood Pressure 133/85 145/80 H Blood Pressure [Left Arm] Blood Pressure Mean 101 98 Blood Pressure Mean [Left Arm] Pulse Oximetry 88 L Oxygen Delivery Method Nasal Cannula Oxygen Flow Rate 0 Sepsis New/Unexplained Change in Mental Status No Sepsis Action Taken by Nursing No Action Required Oxygen Flow Rate - Titration 4 Pulse Oximetry Post Tiitration 96 05/10/24 12:03 05/10/24 12:14 05/10/24 12:31 Temperature Temperature Source Pulse Rate 66 62 Pulse Rate [Apical] Pulse Rate from SpO2 Sensor 66 Respiratory Rate 25 H Blood Pressure 131/85 Blood Pressure [Left Arm] Blood Pressure Mean 102 Blood Pressure Mean [Left Arm] Pulse Oximetry 95 Oxygen Delivery Method Nasal Cannula Oxygen Flow Rate 4 Sepsis New/Unexplained Change in Mental Status Sepsis Action Taken by Nursing Oxygen Flow Rate - Titration Pulse Oximetry Post Tiitration 05/10/24 12:33 05/10/24 13:00 05/10/24 13:00 Temperature Temperature Source Pulse Rate 58 L 60 Pulse Rate [Apical] Pulse Rate from SpO2 Sensor 61 60 Respiratory Rate 21 17 Blood Pressure 131/73 Blood Pressure [Left Arm] Blood Pressure Mean 91 Blood Pressure Mean [Left Arm] Pulse Oximetry 96 95 Oxygen Delivery Method Nasal Cannula Nasal Cannula Oxygen Flow Rate 4 4 Sepsis New/Unexplained Change in Mental Status Sepsis Action Taken by Nursing Oxygen Flow Rate - Titration Pulse Oximetry Post Tiitration 05/10/24 13:00 05/10/24 13:27 05/10/24 13:30 Temperature Temperature Source Pulse Rate 60 Pulse Rate [Apical] Pulse Rate from SpO2 Sensor 60 Respiratory Rate 18 Blood Pressure 131/73 134/68 Blood Pressure [Left Arm] Blood Pressure Mean 91 97 Blood Pressure Mean [Left Arm] Pulse Oximetry 94 Oxygen Delivery Method Oxygen Flow Rate Sepsis New/Unexplained Change in Mental Status Sepsis Action Taken by Nursing Oxygen Flow Rate - Titration Pulse Oximetry Post Tiitration 05/10/24 13:33 05/10/24 14:06 05/10/24 14:18 Temperature Temperature Source Pulse Rate 61 70 65 Pulse Rate [Apical] Pulse Rate from SpO2 Sensor 60 65 65 Respiratory Rate 19 25 H 14 Blood Pressure Blood Pressure [Left Arm] Blood Pressure Mean Blood Pressure Mean [Left Arm] Pulse Oximetry 97 89 L 94 Oxygen Delivery Method Room Air Nasal Cannula Oxygen Flow Rate 3 Sepsis New/Unexplained Change in Mental Status Sepsis Action Taken by Nursing Oxygen Flow Rate - Titration Pulse Oximetry Post Tiitration 05/10/24 14:30 05/10/24 14:39 05/10/24 15:23 Temperature Temperature Source Pulse Rate 65 Pulse Rate [Apical] 67 Pulse Rate from SpO2 Sensor 66 Respiratory Rate 15 18 Blood Pressure 140/80 Blood Pressure [Left Arm] 94/69 L Blood Pressure Mean 101 Blood Pressure Mean [Left Arm] 77 Pulse Oximetry 94 96 Oxygen Delivery Method Nasal Cannula Nasal Cannula Oxygen Flow Rate 3 Sepsis New/Unexplained Change in Mental Status Sepsis Action Taken by Nursing Oxygen Flow Rate - Titration Pulse Oximetry Post Tiitration Home Medications Current Medication List: was personally reviewed by me Laboratory Data Attestation: I reviewed the patient's lab results. 05/10/24 12:10 05/10/24 13:16 Lab Results 05/10/24 05/10/24 05/10/24 Range/Units 12:10 12:28 13:16 WBC 5.64 (4.8-10.8) K/ul RBC 4.93 (4.20-5.40) M/uL Hgb 15.9 (12.0-16.0) g/dl Hct 48.3 H (37.0-47.0) % MCV 98.0 (80.0-100.0) fL MCH 32.3 (25.0-34.0) pg MCHC 32.9 (32.0-36.0) g/dL RDW Std Deviation 49.7 H (36.4-46.3) fL RDW Coeff of Bryan 13.8 (11.5-14.5) % Plt Count 229 (130-400) K/uL MPV 9.3 L (9.4-12.4) fL Immature Gran % (Auto) 0.4 % Neut % (Auto) 53.6 % Lymph % (Auto) 27.0 % Perkins % (Auto) 8.0 % Eos % (Auto) 10.5 % Baso % (Auto) 0.5 % Neut # (Auto) 3.03 (1.40-6.50) K/uL Lymph # (Auto) 1.52 (1.20-3.40) K/uL Perkins # (Auto) 0.45 (0.11-0.59) K/uL Eos # (Auto) 0.59 H (0.00-0.50) K/uL Baso # (Auto) 0.03 (0.00-0.20) K/uL Immature Gran # (Auto) 0.02 (0.01-0.20) K/uL PT 11.3 (9.0-12.0) Seconds INR 1.0 (0.9-1.1) APTT 27 (21-31) Seconds PTT Ratio 1.0 VBG pH 7.33 L (7.36-7.41) VBG pCO2 70 H (38-50) mmHg VBG pO2 23 mmHg VBG HCO3 37 mmol/L VBG O2 Saturation < 60.0 % VBG Base Excess 8.3 mEq/L Sodium Cancelled 143 Potassium Cancelled 4.2 Chloride Cancelled 103 Carbon Dioxide Cancelled 36 H Anion Gap Cancelled 4 BUN Cancelled 21 Creatinine Cancelled 0.74 Est Cr Clr Drug Dosing Cancelled 67.4 eGFR Cancelled 82.76 BUN/Creatinine Ratio Cancelled 28.4 H Glucose Cancelled 117 H Calcium Cancelled 9.0 Magnesium Cancelled 2.1 Total Bilirubin Cancelled 0.6 AST Cancelled 25 ALT Cancelled 22 Alkaline Phosphatase Cancelled 54 Troponin I High Sens 19.8 H (0-14) pg/ml Total Protein Cancelled 6.2 Albumin Cancelled 3.9 Globulin Cancelled 2.3 L Albumin/Globulin Ratio Cancelled 1.7 Urine Color Urine Appearance (Clear) Urine pH (4.5-7.5) Ur Specific Kent (1.000-1.030) Urine Protein (Negative) Urine Glucose (UA) (Negative) Urine Ketones (Negative) Urine Blood (Negative) Urine Nitrite (Negative) Urine Bilirubin (Negative) Urine Urobilinogen (Negative) Ur Leukocyte Esterase (Negative) Urine WBC (Auto) (0-5) /hpf Urine RBC (Auto) (0-2) /hpf U Hyaline Cast (Auto) (0-2) /lpf U Epithel Cells (Auto) (0-2) /hpf Urine Bacteria (Auto) (None Seen) Adenovirus (PCR) Not Detected (NotDetected) B. pertussis DNA (PCR) Not Detected (NotDetected) B.parapertussis DNA PCR Not Detected (NotDetected) C. pneumoniae DNA (PCR) Not Detected (NotDetected) Coronavirus OC43 (PCR) Not Detected (NotDetected) Coronavirus HKU1 (PCR) Not Detected (NotDetected) Coronavirus 229E (PCR) Not Detected (NotDetected) SARS-CoV-2 (PCR) Not Detected (NotDetected) Coronavirus NL63 (PCR) Not Detected (NotDetected) Human Metapneumovir PCR Not Detected (NotDetected) Influenza Type A (PCR) Not Detected (NotDetected) Influenza Type B (PCR) Not Detected (NotDetected) M. pneumoniae (PCR) Not Detected (NotDetected) Parainfluenza 1 (PCR) Not Detected (NotDetected) Parainfluenza 2 (PCR) Not Detected (NotDetected) Parainfluenza 3 (PCR) Not Detected (NotDetected) Parainfluenza 4 (PCR) Not Detected (NotDetected) RSV (PCR) Not Detected (NotDetected) Entero/Rhino (PCR) Not Detected (NotDetected) 05/10/24 Range/Units 14:55 WBC (4.8-10.8) K/ul RBC (4.20-5.40) M/uL Hgb (12.0-16.0) g/dl Hct (37.0-47.0) % MCV (80.0-100.0) fL MCH (25.0-34.0) pg MCHC (32.0-36.0) g/dL RDW Std Deviation (36.4-46.3) fL RDW Coeff of Bryan (11.5-14.5) % Plt Count (130-400) K/uL MPV (9.4-12.4) fL Immature Gran % (Auto) % Neut % (Auto) % Lymph % (Auto) % Perkins % (Auto) % Eos % (Auto) % Baso % (Auto) % Neut # (Auto) (1.40-6.50) K/uL Lymph # (Auto) (1.20-3.40) K/uL Perkins # (Auto) (0.11-0.59) K/uL Eos # (Auto) (0.00-0.50) K/uL Baso # (Auto) (0.00-0.20) K/uL Immature Gran # (Auto) (0.01-0.20) K/uL PT (9.0-12.0) Seconds INR (0.9-1.1) APTT (21-31) Seconds PTT Ratio VBG pH (7.36-7.41) VBG pCO2 (38-50) mmHg VBG pO2 mmHg VBG HCO3 mmol/L VBG O2 Saturation % VBG Base Excess mEq/L Sodium Potassium Chloride Carbon Dioxide Anion Gap BUN Creatinine Est Cr Clr Drug Dosing eGFR BUN/Creatinine Ratio Glucose Calcium Magnesium Total Bilirubin AST ALT Alkaline Phosphatase Troponin I High Sens (0-14) pg/ml Total Protein Albumin Globulin Albumin/Globulin Ratio Urine Color Yellow Urine Appearance Clear (Clear) Urine pH 7.0 (4.5-7.5) Ur Specific Kent 1.019 (1.000-1.030) Urine Protein Trace H (Negative) Urine Glucose (UA) Negative (Negative) Urine Ketones 1+ H (Negative) Urine Blood Negative (Negative) Urine Nitrite Negative (Negative) Urine Bilirubin Negative (Negative) Urine Urobilinogen Negative (Negative) Ur Leukocyte Esterase Negative (Negative) Urine WBC (Auto) 0-5 (0-5) /hpf Urine RBC (Auto) 0-2 (0-2) /hpf U Hyaline Cast (Auto) 0-2 (0-2) /lpf U Epithel Cells (Auto) 0-2 (0-2) /hpf Urine Bacteria (Auto) None Seen (None Seen) Adenovirus (PCR) (NotDetected) B. pertussis DNA (PCR) (NotDetected) B.parapertussis DNA PCR (NotDetected) C. pneumoniae DNA (PCR) (NotDetected) Coronavirus OC43 (PCR) (NotDetected) Coronavirus HKU1 (PCR) (NotDetected) Coronavirus 229E (PCR) (NotDetected) SARS-CoV-2 (PCR) (NotDetected) Coronavirus NL63 (PCR) (NotDetected) Human Metapneumovir PCR (NotDetected) Influenza Type A (PCR) (NotDetected) Influenza Type B (PCR) (NotDetected) M. pneumoniae (PCR) (NotDetected) Parainfluenza 1 (PCR) (NotDetected) Parainfluenza 2 (PCR) (NotDetected) Parainfluenza 3 (PCR) (NotDetected) Parainfluenza 4 (PCR) (NotDetected) RSV (PCR) (NotDetected) Entero/Rhino (PCR) (NotDetected) Administered Medications Discontinued Medications Albuterol (Albut/Ipratrop 3mg/0.5mg Neb 3 Ml Vial) 3 ml NEB NOW STA; Protocol Stop: 05/10/24 11:57 Last Admin: 05/10/24 12:11 Dose: 3 ml Documented By: VISHAL Albuterol (Albut/Ipratrop 3mg/0.5mg Neb 3 Ml Vial) 3 ml NEB NOW STA; Protocol Stop: 05/10/24 13:36 Last Admin: 05/10/24 13:40 Dose: 3 ml Documented By: VISHAL Methylprednisolone (Methylprednisolone 125 Mg/2 Ml Vial) 60 mg IV NOW STA Stop: 05/10/24 11:57 Last Admin: 05/10/24 12:10 Dose: 60 mg Documented By: VISHAL Imaging Data Radiologist's Impression: Chest X-Ray 05/10/24 11:56 XR chest 1V portable CLINICAL HISTORY: Dyspnea COMPARISON STUDY: Chest radiograph March 10, 2024. Chest CT May 10, 2018. FINDINGS: Mild elevation/eventration of the right hemidiaphragm is unchanged. There is no consolidation. Minimal bibasilar opacities favor atelectasis. There is no pneumothorax or pleural effusion. Cardiac size is normal. Mediastinal contours are normal. There is no evidence for pulmonary edema. IMPRESSION: No acute cardiopulmonary findings. No change in appearance of the chest. ACT 112: Negative or not required by law. Electronically signed by: Aston Dougherty M.D. 05/10/2024 12:45 PM Discharge Plan Visit Data Chief Complaint: Shortness of Breath/Dyspnea Stated Complaint: SOB ED Provider: Stevo Brennan Discharge Problem: Hypoxia, COPD exacerbation, SOB (shortness of breath), Cough, Elevated troponin, Acute electrocardiogram changes Patient Disposition: Admitted As Inpatient Condition: Fair Forms Stand Alone Forms: [facility] Prescriptions Prescriptions: No Action Incruse Ellipta 62.5 mcg/actuation blister with device 1 inh INHALATION DAILY alprazolam 1 mg Tablet 1 mg PO HS Qty: 10 0RF ascorbic acid (vitamin C) [Vitamin C] 1,000 mg Tablet 500 mg PO QAM paroxetine HCl 30 mg tablet 60 mg PO DAILY omega 1-adw-fol-fish oil [Fish Oil] 1,000 mg (120 mg-180 mg) Capsule 1 cap PO HS aspirin 81 mg Tablet,Delayed Release (Dr/Ec) 81 mg PO QAM Caltrate 600 plus D 600 mg (1,500 mg)-800 unit Tablet,Chewable 1 tab PO DAILY sumatriptan succinate 100 mg Tablet 100 mg PO UD PRN (Reason: Migraine Headache) cyanocobalamin (vitamin B-12) 1,000 mcg Tablet 1,000 mcg PO HS nitroglycerin 0.4 mg Tablet, Sublingual 0.4 mg sublingual USEASDIRECTD MDD 3 doses in 15 minutes PRN (Reason: Chest Pain) Rx Instructions: place 1 tablet under the tongue every 5 minutes as needed for pain,chest. up to 3 doses in 15 minutes albuterol sulfate 90 mcg/actuation Hfa Aerosol Inhaler 2 puff INHALATION Q6H PRN (Reason: SHORT OF BREATH) rosuvastatin 40 mg tablet 40 mg PO HS carvedilol 3.125 mg Tablet 3.125 mg PO BID Qty: 60 0RF Rx Instructions: take with morning and evening meals isosorbide mononitrate 60 mg Tablet Extended Release 24 Hr 60 mg PO QAM Qty: 30 0RF prednisone 10 mg tablet 0 mg PO DIRECTED PRN (Reason: RESCUE KIT) Rx Instructions: STARTED 03/13/23 FOR 10 DAYS. albuterol sulfate 2.5 mg /3 mL (0.083 %) Solution For Nebulization 2.5 mg INHALATION DIRECTED PRN (Reason: Shortness Of Breath Or Wheezing) Artificial Tears (cmc) 1 % Drops 1 drp OPB TID PRN (Reason: as directed) ipratropium-albuterol 0.5 mg-3 mg(2.5 mg base)/3 mL solution for nebulization 3 ml NEB QIDR PRN (Reason: NEEDED PER [facility]) lisinopril 40 mg tablet 40 mg PO QAM fluticasone propion-salmeterol 250-50 mcg/dose blister with device 1 ea INHALATION AMHS amlodipine 5 mg tablet 5 mg PO QAM etodolac 200 mg capsule 200 mg PO Q12H PRN (Reason: pain) Qty: 10 0RF senna 8.6 mg capsule 8.6 mg PO BID Qty: 10 0RF prednisone 10 mg tablet 10 mg PO DIRECTED Qty: 31 0RF Rx Instructions: Prednisone 40 mg for 4 days, 30 mg for 3 days, 20 mg for 2 days and 10 mg for 2 days. Referrals Referrals: Merlin Barrios MD [Primary Care Provider] - Discharge Problem: Cough Qualifiers: Cough type: subacute Qualified Code(s): R05.2 - Subacute cough
[2024-05-10] MEDS: methylPREDNISolone 125 MG/2 ML VIAL IV STA (12:10)
[2024-05-10] MEDS: ALBUT/IPRATROP 3MG/0.5MG NEB 3 ML VIAL NEB STA ×2 (12:11→13:40)
[2024-05-10 12:31] LABS: Basophils # (auto) 0.03 K/uL (0.00-0.20); Basophils % (auto) 0.5 %; Eosinophils # (auto) 0.59 K/uL (0.00-0.50); Eosinophils % (auto) 10.5 %; Hematocrit (blood only) 48.3 % (37.0-47.0); Hemoglobin 15.9 g/dl (12.0-16.0); Immature Granulocytes # (auto) 0.02 K/uL (0.01-0.20); Immature Granulocytes % (auto) 0.4 %; Lymphocytes # (auto) 1.52 K/uL (1.20-3.40); Mean Corpuscular Hemoglobin 32.3 pg (25.0-34.0); Mean Corpuscular Hgb Conc 32.9 g/dL (32.0-36.0); Mean Platelet Volume 9.3 fL (9.4-12.4); Monocytes # (auto) 0.45 K/uL (0.11-0.59); Neutrophils # (auto) 3.03 K/uL (1.40-6.50); Neutrophils % (auto) 53.6 %; Platelet Count 229 K/uL (130-400); RDW Coefficient of Variation 13.8 % (11.5-14.5); RDW Standard Deviation 49.7 fL (36.4-46.3); Red Blood Count 4.93 M/uL (4.20-5.40); White Blood Count 5.64 K/ul (4.8-10.8)
[2024-05-10 12:36] LABS: Base Excess VBG 8.3 mEq/L; HCO3 VBG 37 mmol/L; Oxygen Saturation VBG < 60.0 %; PCO2 VBG 70 mmHg (38-50); PO2 VBG 23 mmHg; pH VBG 7.33 (7.36-7.41)
--- NOTE | 2024-05-10 12:47 | XRay Report ---
XR chest 1V portable CLINICAL HISTORY: Dyspnea COMPARISON STUDY: Chest radiograph March 10, 2024. Chest CT May 10, 2018. FINDINGS: Mild elevation/eventration of the right hemidiaphragm is unchanged. There is no consolidati on. Minimal bibasilar opacities favor atelectasis. There is no pneumothorax or pleural effusion. Card iac size is normal. Mediastinal contours are normal. There is no evidence for pulmonary edema. IMPRESSION: No acute cardiopulmonary findings. No change in appearance of the chest. ACT 112: Negative or not required by law. Electronically signed by: Aston Dougherty M.D. 05/10/2024 12:45 PM
[2024-05-10 13:09] LABS: Partial Thromboplastin Time 27 Seconds (21-31); Prothrombin Time 11.3 Seconds (9.0-12.0)
[2024-05-10 13:15] LABS: Adenovirus PCR Not Detected (NotDetected); Bordetella parapertussis PCR Not Detected (NotDetected); Bordetella pertussis PCR Not Detected (NotDetected); Chlamydia pneumoniae PCR Not Detected (NotDetected); Coronavirus 229E PCR Not Detected (NotDetected); Coronavirus CoV-2 (COVID19)PCR Not Detected (NotDetected); Coronavirus HKU1 PCR Not Detected (NotDetected); Coronavirus NL63 PCR Not Detected (NotDetected); Coronavirus OC43PCR Not Detected (NotDetected); Human Metapneumovirus PCR Not Detected (NotDetected); Influenza A PCR Not Detected (NotDetected); Influenza B PCR Not Detected (NotDetected); Mycoplasma pneumoniae PCR Not Detected (NotDetected); Parainfluenza Virus 1 PCR Not Detected (NotDetected); Parainfluenza Virus 2 PCR Not Detected (NotDetected); Parainfluenza Virus 3 PCR Not Detected (NotDetected); Parainfluenza Virus 4 PCR Not Detected (NotDetected); Respiratory Syncytial VirusPCR Not Detected (NotDetected); Rhinovirus/Enterovirus PCR Not Detected (NotDetected)
[2024-05-10 13:50] LABS: Albumin Globulin Ratio 1.7 (0.9-2); Albumin Level 3.9 gm/dl (3.4-5.0); BUN Creatinine Ratio 28.4 (10-20); Bilirubin,Total 0.6 mg/dl (0.2-1.0); Creatinine Clr Calc Pharmacy 67.4 ml/min; Globulin 2.3 gm/dl (2.5-4.0); Magnesium 2.1 mg/dl (1.7-2.4); Potassium 4.2 mmol/L (3.5-5.1); Total Protein 6.2 gm/dl (6.0-8.3)
[2024-05-10 15:17] LABS: Appearance Urine Clear (Clear); Bacteria Urine Automated None Seen (None Seen); Bilirubin Urine Negative (Negative); Blood Urine Negative (Negative); Cast Urine Automated 0-2 /lpf (0-2); Color Urine Yellow; Epithelial Cell Urine Auto 0-2 /hpf (0-2); Glucose Urine UA Negative (Negative); Ketones Urine 1+ (Negative); Leukocyte Esterase Urine Negative (Negative); Nitrite Urine Negative (Negative); Protein Urine Trace (Negative); RBC Urine Automated 0-2 /hpf (0-2); Specific Gravity Urine 1.019 (1.000-1.030); Urobilinogen Urine Negative (Negative); WBC Urine Automated 0-5 /hpf (0-5)
--- NOTE | 2024-05-10 15:20 | History & Physical Report ---
Date of Service May 10, 2024 Assessment & Plan (1) Acute hypoxemic respiratory failure: (2) Acute exacerbation of chronic obstructive pulmonary disease (COPD): Plan: Patient is a 78-year-old female with history of COPD, smoker, nocturnal hypoxia, CAD/CABG, history of atrial flutter, prediabetes, hypertension, depression and anxiety, presenting with productive cough and shortness of breath x 1 week. Acute hypoxemic respiratory failure secondary to COPD exacerbation, acute bronchitis History of obstructive sleep apnea Negative bio fire panel Chest x-ray: No pneumonia Currently on 3 L of O2 via cannula At home, uses 2.5 L of O2 supplement only at night Check blood cultures in light of fevers and chills at home Check sputum culture and nasal MRSA swab Start cefepime plus doxycycline Xopenex, Atrovent 4 times daily Hypertonic saline twice daily Mucinex 600 twice daily, incentive spirometry, flutter valve D dimer Elevated: 830 Ct Angio chest ordered Doppler US ordered Smoker Currently on nicotine patch 21 mcg daily since last week, will continue Mild troponin elevation History of CAD/CABG History of atrial flutter Troponin 19, second and third troponin pending EKG: Nonspecific T wave changes in the anterolateral leads, new compared to last EKG Mild troponin elevation likely secondary to demand ischemia No chest pain or other cardiac symptoms Not on aspirin, will start aspirin 81 mg p.o. daily Continue statin Obtain echocardiogram Pre-DM BSG 117 Monitor Hypertension Continue amlodipine plus lisinopril Depression, anxiety Continue usual meds DVT prophylaxis Lovenox subcu daily CODE STATUS full code per patient Disposition Lives at home History of Present Illness Chief Complaint: Productive cough, shortness of breath x 1 week Primary Care Provider: Merlin Barrios MD Patient is a 78-year-old female with history of COPD, smoker, nocturnal hypoxia, CAD/CABG, history of atrial flutter, prediabetes, hypertension, depression and anxiety, presenting with productive cough and shortness of breath x 1 week. Since middle of February, patient has had multiple episodes of COPD exacerbations requiring prednisone taper, doxycycline and azithromycin. Her last episode was middle march, for which she required another round of prednisone and Z-Brian. As per patient, for the past week, she has been having progressive cough associated with yellow thick sputum, shortness of breath, and some occasional fever/chills. She also reports some sore throat. She denies having chest pain, palpitations, nausea or vomiting, abdominal pain, other symptoms. Today, she presented to the ER with progressive shortness of breath with productive cough. She was found to be hypoxic in the 80s upon arrival to the ER. She was placed on 4 L of oxygen with improvement of O2 sats. She was also given albuterol and Solu-Medrol. Respiratory panel: Negative Chest x-ray: No acute infiltrates, effusion She had persistent hypoxia and wheezing prompting hospitalist consultation. On exam, patient seen resting in bed, on 3 L of O2 via nasal cannula, comfortable, not in distress, speaking in sentences with no effort. She states she feels somewhat better since admission. No active shortness of breath, chest pain, dizziness, etc. Allergies Allergy/AdvReac Type Severity Reaction Status Date / Time No Known Allergies Allergy Verified 03/18/23 20:17 Home Medications Medication Instructions Recorded Confirmed Type ascorbic acid (vitamin C) 1,000 mg 500 mg PO QAM 05/10/18 05/10/24 History tablet (Vitamin C) aspirin 81 mg tablet,delayed 81 mg PO UD 05/10/18 05/10/24 History release calcium 600 mg (as carbonate)-vit 1 tab PO DAILY 05/10/18 05/10/24 History D3 20 mcg (800 unit) chewable tablet (Caltrate plus D) omega [id number] oil 1,000 mg 1 cap PO HS 05/10/18 05/10/24 History (120 mg-180 mg) capsule (Fish Oil) paroxetine HCl 30 mg tablet 60 mg PO DAILY 05/10/18 05/10/24 History albuterol sulfate 90 mcg/actuation 2 puff inhalation Q6H PRN SHORT OF 01/14/19 05/10/24 History aerosol inhaler BREATH cyanocobalamin (vitamin B-12) 1,000 mcg PO HS 01/14/19 05/10/24 History 1,000 mcg tablet nitroglycerin 0.4 mg sublingual 0.4 mg sublingual USEASDIRECTD PRN 01/14/19 05/10/24 History tablet Chest Pain sumatriptan succinate 100 mg tablet 100 mg PO UD PRN Migraine Headache 01/14/19 05/10/24 History rosuvastatin 40 mg tablet 40 mg PO HS 10/10/19 05/10/24 History umeclidinium 62.5 mcg/actuation 1 inh inhalation DAILY 02/10/20 05/10/24 History blister powder for inhalation (Incruse Ellipta) alprazolam 1 mg tablet 1 mg PO HS #10 tabs 02/18/20 05/10/24 Rx carvedilol 3.125 mg tablet 3.125 mg PO BID #60 tabs 11/14/21 05/10/24 Rx isosorbide mononitrate 60 mg 60 mg PO QAM #30 tabs 11/14/21 05/10/24 Rx tablet,extended release 24 hr lisinopril 40 mg tablet 40 mg PO QAM 10/20/22 05/10/24 History albuterol sulfate 2.5 mg/3 mL 2.5 mg inhalation DIRECTED PRN 03/18/23 05/10/24 History (0.083 %) solution for nebulization Shortness Of Breath Or Wheezing carboxymethylcellulose sodium 1 % 1 drp OPB TID PRN as directed 03/18/23 05/10/24 History eye drops (Artificial Tears (carboxymethylcellulose)) ipratropium 0.5 mg-albuterol 3 mg 3 ml NEB QIDR PRN NEEDED PER [facility] 03/18/23 05/10/24 History (2.5 mg base)/3 mL nebulization soln prednisone 10 mg tablet 0 mg PO DIRECTED PRN RESCUE KIT 03/18/23 05/10/24 History amlodipine 5 mg tablet 5 mg PO QAM 06/01/23 05/10/24 History fluticasone furoate 100 1 inh inhalation QAM 05/10/24 05/10/24 History mcg-vilanterol 25 mcg/dose inhalation powder (Breo Ellipta) hydroxyzine HCl 25 mg tablet 25 mg PO TID PRN Anxiety 05/10/24 05/10/24 History Past Med/Surg History Problem List Acute electrocardiogram changes (Acute) Elevated troponin (Acute) Cough (Acute) SOB (shortness of breath) (Acute) COPD exacerbation (Acute) Hypoxia (Acute) Acute hypoxemic respiratory failure Status migrainosus without intractable migraine Acute intractable headache (Acute) Pneumonia Prediabetes Chest pain at rest Dyslipidemia, goal LDL below 70 Hypertensive urgency Abnormal EKG ASCVD (arteriosclerotic cardiovascular disease) Acute exacerbation of chronic obstructive pulmonary disease (COPD) (Acute) Acute electrocardiogram changes (Acute) DVT prophylaxis Abnormal CT scan, stomach Pneumonia due to COVID-19 virus Pneumonia (Acute) CAD (coronary artery disease) Nonobstructive by 2019 cardiac cath. NSTEMI ruled 2/2 coronary spasm. Hypoxia (Acute) Synovial cyst of right popliteal space Anxiety History of discectomy Acute respiratory failure with hypoxia COPD exacerbation Pneumonia Depression . Generalized anxiety disorder Hypertension COPD (chronic obstructive pulmonary disease) 2.5 LPM VIA N/C ONLY AT HS. Advair daily, rarely using rescue inhaler, ~ 3x per month Continues to smoke 1ppd Atrial flutter s/p ablation 05/2017. Follows with [facility]. History of breast biopsy History of laparoscopy 04/27 endometriosis Medical History Migraines Acute exacerbation of chronic obstructive pulmonary disease (COPD) COVID-19 Tear of lateral meniscus of right knee Tear of medial meniscus of right knee Degenerative disc disease Osteoarthritis Anxiety and depression Sleep apnea "MILD" ONLY WEARS O2 AT 2.5L AT HS Myocardial Infarction NSTEMI 04/2018 [facility] Hyperlipidemia On home oxygen therapy 2.5L AT HS NSTEMI (non-ST elevated myocardial infarction) Surgical History History of section X 2 History of colonoscopy History of dilatation and curettage History of open reduction and internal fixation (ORIF) procedure RT ANKLE History of discectomy LUMBAR History of tooth extraction History of eye surgery RT EYE (CAN'T REMEMBER WHAT FOR) History of cardiac cath 04/2018 for NSTEMI, Nonobstructive moderate proximal to mid LAD disease. History of cardiac radiofrequency ablation 2018 Family History Father Hypertension Brother Diabetes Depression Family history of diabetes mellitus Sister Depression Family history of diabetes mellitus Social History Smoking Status: Former smoker Tobacco Type: Cigarettes Cigarettes Per Day: 10; Second Hand Exposure: No; Do You Dip or Chew Tobacco: No; Hx Alcohol Use: No Hx Substance Use: No Preferred Language: Danish Communication Ability: Effective Communication Ability Comment: Inhibited only by SOB. Visual Impairment: No Limitations Hearing Ability: Normal Wirer Maintenance Required: No Beliefs That Will Affect Care: None marital status: Current Living Situation: Alone How many Children do You have: 2 Feels Safe at Home: Yes Assistive Devices: Cane and Walker Review of Systems Review of Systems: all noted and negative except for above Physical Exam Physical Exam: General- oriented x 3, not in distress, speaks in sentences with no effort or accessory muscle use Head- atraumatic Eyes- PERRL, EOMI, anicteric ENT- oropharynx clear Neck- supple, no JVD, no adenopathy, no thyromegaly; carotids +2/2, no bruits appreciated Lungs- Positive diffuse scattered crackles bilaterally with intermittent wheezing, good air entry bilaterally Heart- normal rate, regular rhythm; no murmur, no gallop, no rub appreciated Abdomen- normal bowel sounds, nondistended, soft, nontender, no masses or hepatosplenomegaly Extremities- Mild pretibial edema, no calf tenderness; peripheral pulses intact Neuro- alert, oriented x 3; CN 2-12 grossly intact; motor 5/5 bilaterally;sensation 100% on all extremities; no other gross focal neurologic deficits Skin- warm & dry Results & Data Results & Data Vital Signs (Past 12 Hours) Vital Signs Temp Pulse Resp BP Pulse Ox O2 Del Method O2 Flow Rate 05/10/24 14:39 65 15 94 Nasal Cannula 3 05/10/24 14:30 140/80 05/10/24 14:18 65 14 94 Nasal Cannula 3 05/10/24 14:06 70 25 H 89 L Room Air 05/10/24 13:33 61 19 97 05/10/24 13:30 134/68 05/10/24 13:27 60 18 94 05/10/24 13:00 131/73 05/10/24 13:00 131/73 05/10/24 13:00 60 17 95 Nasal Cannula 4 05/10/24 12:33 58 L 21 96 Nasal Cannula 4 05/10/24 12:31 131/85 05/10/24 12:14 62 05/10/24 12:03 66 25 H 95 Nasal Cannula 4 05/10/24 12:00 145/80 H 05/10/24 11:56 88 L Nasal Cannula 0 05/10/24 11:56 36.8 C 69 18 133/85 all noted and reviewed including below Code Status & VTE Plan VTE Prophylaxis Plan VTE Prophylaxis will be ordered: Yes
[2024-05-10] MEDS ORDERED: hydrOXYzine HCl 25 MG TAB PO PRN (18:57)
[2024-05-10] MEDS ORDERED: ARTIFICIAL TEARS OP PRN (19:06)
[2024-05-10] MEDS ORDERED: methylPREDNISolone 125 MG/2 ML VIAL IV SCH (19:15)
[2024-05-10 20:07] LABS: D Dimer 830 ug/L FEU (0-500)
[2024-05-10] MEDS: methylPREDNISolone 40 MG in SYRINGE 0 ML IV SCH (20:11)
[2024-05-10] MEDS: OPTIRAY 320 125ml IV ONE (21:02)
[2024-05-10] MEDS: ALPRAZolam 0.5 MG TABLET PO SCH (21:19)
[2024-05-10] MEDS: carvediloL 3.125 MG TAB PO SCH (21:21)
[2024-05-10] MEDS: SODIUM CHLORIDE 0.9% 1,000 ML IV SCH (21:22)
--- NOTE | 2024-05-10 22:54 | CT Scan Report ---
Exam(s): CTA CHEST IV Amt: 118 cc opti 320 EXAM: CT Angiography Chest With Intravenous Contrast CLINICAL HISTORY: PE. TECHNIQUE: Axial computed tomographic angiography images of the chest with intravenous contrast. MIPS images were created and reviewed. CTDI is 39. 84 mGy and DLP is 932.96 mGy-cm. Automated exposure control was utilized for the study. A dose lowering technique was utilized adhering to the principles of ALARA. MIP reconstructed images were created and reviewed. COMPARISON: CTA chest 05/10/2018 FINDINGS: Pulmonary arteries: There is dilation of the pulmonary arteries. The right pulmonary measures 3.4 cm. The left pulmonary artery measures 3.1 cm. No pulmonary embolism. Aorta: Mild atherosclerosis. No thoracic aortic aneurysm. Lungs: Airspace opacity of the left lower lobe favors atelectasis, however there are filling defects of the adjacent bronchi and as such aspiration to be included on the differential. Small filling defect of a bronchi of the left lower lobe could represent mucous plugs or aspiration. Pleural space: Unremarkable. No significant effusion. No pneumothorax. Heart: Coronary artery calcifications are present. No cardiomegaly. No significant pericardial effusion. No evidence of RV dysfunction. Bones/joints: No fracture. Soft tissues: Unremarkable. Lymph nodes: Unremarkable. No enlarged lymph nodes. IMPRESSION: 1. No pulmonary embolus. 2. Airspace opacity of the left lower lobe favors atelectasis, however there are filling defects of the adjacent bronchi and as such aspiration to be included on the differential. 3. Small filling defect of a bronchi of the left lower lobe could represent mucous plugs or aspiration. 4. There is dilation of the pulmonary arteries. This is concerning for pulmonary artery hypertension. Electronically signed by: Birtney Leahy MD 05/10/24 22:53 PM
[2024-05-10] MEDS: ROSUVASTATIN CALCIUM 20 MG TAB PO SCH (23:55)
[2024-05-11] MEDS: ENOXAPARIN INJ 40 MG/0.4 ML SYR SQ SCH (00:08)
[2024-05-11] MEDS: CEFEPIME 2000MG 2,000 MG/20 ML SYR IV SCH (00:10)
[2024-05-11] MEDS: DOXYCYCLINE HYCLATE 100 MG CAP PO SCH (00:10)
[2024-05-11] MEDS: SODIUM CHLOR 7% 4 ML NEB NEB SCH (00:12)
[2024-05-11] MEDS: IPRATROPIUM BROMIDE NEB SOLN 0.02% 0.5MG/2.5ML VIAL NEB SCH (00:12)
[2024-05-11] MEDS: LEVALBUTEROL 1.25 MG/3 ML NEB NEB SCH (00:12)
[2024-05-11] MEDS: guaiFENesin 600 MG TABCR PO SCH (00:21)
[2024-05-11] MEDS: ASPIRIN 81 MG ECTAB PO SCH (00:21)
[2024-05-11 00:29] LABS: D Dimer 510 ug/L FEU (0-500)
[2024-05-11] MEDS: ADVANCED PROBIOTIC 625 MG CAPSULE PO SCH (01:54)
[2024-05-11 08:01] LABS: Basophils # (auto) 0.01 K/uL (0.00-0.20); Basophils % (auto) 0.2 %; Hemoglobin 15.3 g/dl (12.0-16.0); Immature Granulocytes # (auto) 0.02 K/uL (0.01-0.20); Immature Granulocytes % (auto) 0.3 %; Lymphocytes # (auto) 1.27 K/uL (1.20-3.40); Lymphocytes % (auto) 19.8 %; Mean Corpuscular Hemoglobin 31.5 pg (25.0-34.0); Mean Corpuscular Hgb Conc 33.3 g/dL (32.0-36.0); Mean Corpuscular Volume 94.8 fL (80.0-100.0); Mean Platelet Volume 9.6 fL (9.4-12.4); Monocytes % (auto) 1.6 %; Neutrophils # (auto) 5.01 K/uL (1.40-6.50); Neutrophils % (auto) 78.1 %; Platelet Count 250 K/uL (130-400); RDW Coefficient of Variation 13.5 % (11.5-14.5); RDW Standard Deviation 47.4 fL (36.4-46.3); Red Blood Count 4.85 M/uL (4.20-5.40); White Blood Count 6.41 K/ul (4.8-10.8)
--- NOTE | 2024-05-11 08:12 | Hospitalist Progress Note ---
Date of Service May 11, 2024 Assessment & Plan (1) Acute hypoxemic respiratory failure: (2) Acute exacerbation of chronic obstructive pulmonary disease (COPD): Plan: Patient is a 78-year-old female with history of COPD, smoker, nocturnal hypoxia, CAD/CABG, history of atrial flutter, prediabetes, hypertension, depression and anxiety, presenting with productive cough and shortness of breath x 1 week. Acute hypoxemic respiratory failure secondary to COPD exacerbation, acute bronchitis History of obstructive sleep apnea Negative bio fire panel Chest x-ray: No pneumonia Currently on 3 L of O2 via cannula At home, uses 2.5 L of O2 supplement only at night Check blood cultures in light of fevers and chills at home Check sputum culture and nasal MRSA swab Started cefepime plus doxycycline on admission - will cont. for now Xopenex, Atrovent 4 times daily Hypertonic saline twice daily Mucinex 600 twice daily, incentive spirometry, flutter valve D dimer Elevated: 830 Ct Angio chest obtained - 1. No pulmonary embolus. 2. Airspace opacity of the left lower lobe favors atelectasis, however there are filling defects of the adjacent bronchi and as such aspiration to be included on the differential. 3. Small filling defect of a bronchi of the left lower lobe could represent mucous plugs or aspiration. 4. There is dilation of the pulmonary arteries. This is concerning for pulmonary artery hypertension. Doppler US ordered - no DVT Smoker Currently on nicotine patch 21 mcg daily since last week, will continue Mild troponin elevation History of CAD/CABG History of atrial flutter Troponin 19, repeat downtrending EKG: Nonspecific T wave changes in the anterolateral leads, new compared to last EKG Mild troponin elevation likely secondary to demand ischemia No chest pain or other cardiac symptoms Not on aspirin, started aspirin 81 mg p.o. daily on admission, will cont. Continue statin Echocardiogram obtained - LV wall motion is normal, LV is hyperdynamic. LVEF~70%, RV is normal in size. No significant valvular disease. Pre-DM BSG 117 Monitor Hypertension Continue amlodipine plus lisinopril Depression, anxiety Continue usual meds DVT prophylaxis - Lovenox CODE STATUS full code per patient Disposition- Lives at home Admission and Anticipated Discharge Date Admission Date: May 10, 2024 Subjective Pt seen in follow up of COPD exacerb., acute bronchitis Pt reports to be a long time smoker Uses 2L O2 at night, currently lying in bed in NAD, on 3L of suppl. O2 + cough denies any chest pain, abd. pain, n/v sputum cultx - pending Review of Systems Review of Systems: All systems reviewed & are unremarkable except as noted in Subjective Physical Exam Physical Exam: General- oriented x 3, not in distress, speaks in sentences with no effort or accessory muscle use Head- atraumatic Eyes- PERRL, EOMI, anicteric Neck- supple, no JVD Lungs- Positive diffuse scattered crackles b/l, good air entry b/l, + cough Heart- normal rate, regular rhythm; no murmur Abdomen- normal bowel sounds, nondistended, soft, nontender Extremities- Mild pretibial edema, peripheral pulses intact Neuro- alert, oriented x 3; answers appropriately, speech fluent, moves extremities Skin- warm & dry Results & Data Results & Data Vital Signs (Past 12 Hours) Vital Signs Temp Pulse Pulse Resp BP BP Pulse Ox 05/11/24 08:02 86 18 94 05/11/24 07:39 36.9 C 86 20 143/82 H 91 05/11/24 03:09 05/11/24 03:04 36.5 C 88 17 156/78 H 90 05/11/24 00:30 69 16 131/65 98 05/10/24 23:46 79 05/10/24 23:30 77 21 136/67 95 05/10/24 23:06 36.7 C 71 20 131/65 98 05/10/24 23:06 05/10/24 23:00 80 18 151/77 H 96 05/10/24 20:15 89 23 168/99 H 96 Pulse Ox O2 Del Method O2 Del Method O2 Flow Rate 05/11/24 08:02 Nasal Cannula 3 05/11/24 07:39 Nasal Cannula 3 05/11/24 03:09 Room Air 05/11/24 03:04 Room Air 05/11/24 00:30 Nasal Cannula 2 05/10/24 23:46 05/10/24 23:30 Nasal Cannula 2 05/10/24 23:06 Room Air 05/10/24 23:06 94 Room Air 05/10/24 23:00 Nasal Cannula 2 05/10/24 20:15 Nasal Cannula 2 Laboratory Results 02/16/25 02/16/25 02/16/25 Range/Units 07:33 02:12 00:02 WBC 6.41 (4.8-10.8) K/ul RBC 4.85 (4.20-5.40) M/uL Hgb 15.3 (12.0-16.0) g/dl Hct 46.0 (37.0-47.0) % MCV 94.8 (80.0-100.0) fL MCH 31.5 (25.0-34.0) pg MCHC 33.3 (32.0-36.0) g/dL RDW Std Deviation 47.4 H (36.4-46.3) fL RDW Coeff of Bryan 13.5 (11.5-14.5) % Plt Count 250 (130-400) K/uL MPV 9.6 (9.4-12.4) fL Immature Gran % (Auto) 0.3 % Neut % (Auto) 78.1 % Lymph % (Auto) 19.8 % Shackelford % (Auto) 1.6 % Eos % (Auto) 0.0 % Baso % (Auto) 0.2 % Neut # (Auto) 5.01 (1.40-6.50) K/uL Lymph # (Auto) 1.27 (1.20-3.40) K/uL Sh[place]elford # (Auto) 0.10 L (0.11-0.59) K/uL Eos # (Auto) 0.00 (0.00-0.50) K/uL Baso # (Auto) 0.01 (0.00-0.20) K/uL Immature Gran # (Auto) 0.02 (0.01-0.20) K/uL D-Dimer 510 H* (0-500) ug/L FEU Sodium 142 (136-145) mmol/L Potassium 3.9 (3.5-5.1) mmol/L Chloride 104 (98-107) mmol/L Carbon Dioxide 30 (21-32) mmol/L Anion Gap 8 (3-11) BUN 24 H (6-23) mg/dl Creatinine 0.67 (0.6-1.2) mg/dl Est Cr Clr Drug Dosing 83.2 ml/min eGFR 89.41 BUN/Creatinine Ratio 35.8 H (10-20) Glucose 132 H (70-99(Fasting)) mg/dl Calcium 9.2 (8.6-10.3) mg/dl Troponin I High Sens 18.5 H (0-14) pg/ml Nasal Screen MRSA (PCR) Negative (Negative) 05/10/24 Range/Units 19:40 WBC (4.8-10.8) K/ul RBC (4.20-5.40) M/uL Hgb (12.0-16.0) g/dl Hct (37.0-47.0) % MCV (80.0-100.0) fL MCH (25.0-34.0) pg MCHC (32.0-36.0) g/dL RDW Std Deviation (36.4-46.3) fL RDW Coeff of Bryan (11.5-14.5) % Plt Count (130-400) K/uL MPV (9.4-12.4) fL Immature Gran % (Auto) % Neut % (Auto) % Lymph % (Auto) % Shackelford % (Auto) % Eos % (Auto) % Baso % (Auto) % Neut # (Auto) (1.40-6.50) K/uL Lymph # (Auto) (1.20-3.40) K/uL Shackelford # (Auto) (0.11-0.59) K/uL Eos # (Auto) (0.00-0.50) K/uL Baso # (Auto) (0.00-0.20) K/uL Immature Gran # (Auto) (0.01-0.20) K/uL D-Dimer 830 H* (0-500) ug/L FEU Sodium (136-145) mmol/L Potassium (3.5-5.1) mmol/L Chloride (98-107) mmol/L Carbon Dioxide (21-32) mmol/L Anion Gap (3-11) BUN (6-23) mg/dl Creatinine (0.6-1.2) mg/dl Est Cr Clr Drug Dosing ml/min eGFR BUN/Creatinine Ratio (10-20) Glucose (70-99(Fasting)) mg/dl Calcium (8.6-10.3) mg/dl Troponin I High Sens (0-14) pg/ml Nasal Screen MRSA (PCR) (Negative) Medications Administered Current Inpatient Medications Acetaminophen (Acetaminophen 325 Mg Tab) 650 mg PO Q4H PRN PRN Reason: Pain or Fever Stop: 06/09/24 23:05 Alprazolam (Alprazolam 0.5 Mg Tablet) 1 mg PO HS [facility] Stop: 06/09/24 20:59 Last Admin: 05/10/24 21:19 Dose: 1 mg Amlodipine Besylate (Amlodipine Besylate 5 Mg Tab) 5 mg PO QAM HUSSEIN Stop: 06/10/24 08:59 Artificial Tears (Artificial Tears) 1 drops OP TID PRN PRN Reason: Dryness Stop: 06/09/24 19:05 Aspirin (Aspirin 81 Mg Ectab) 81 mg PO DAILY HUSSEIN Stop: 06/09/24 23:05 Last Admin: 05/11/24 00:21 Dose: 81 mg Carvedilol (Carvedilol 3.125 Mg Tab) 3.125 mg PO BID HUSSEIN Stop: 06/09/24 20:59 Last Admin: 05/10/24 23:55 Dose: 3.125 mg Doxycycline Hyclate (Doxycycline Hyclate 100 Mg Cap) 100 mg PO BID HUSSEIN Stop: 05/15/24 23:05 Last Admin: 05/11/24 00:10 Dose: 100 mg Enoxaparin Sodium (Enoxaparin Inj 40 Mg/0.4 Ml Syr) 40 mg SQ PM HUSSEIN Stop: 06/09/24 23:05 Last Admin: 05/11/24 00:08 Dose: 40 mg Fluticasone/Vilanterol (Fluticasone/Vilanterol 100/25mcg 14 Puffs/Inhaler) 1 puffs INH QAM [facility] Stop: 06/10/24 08:59 Guaifenesin (Guaifenesin 600 Mg Tabcr) 600 mg PO Q12 HUSSEIN Stop: 06/09/24 23:05 Last Admin: 05/11/24 00:21 Dose: 600 mg Hydroxyzine HCl (Hydroxyzine Hcl 25 Mg Tab) 25 mg PO TID PRN PRN Reason: Anxiety Stop: 06/09/24 18:56 Methylprednisolone 40 mg/ (Syringe) 0.64 mls @ 1.5 mls/min IV Q8H HUSSEIN Stop: 06/09/24 19:14 Last Admin: 05/11/24 04:37 Dose: 1.5 mls/min Sodium Chloride (Nss) 1,000 mls @ 75 mls/hr IV .[id number] [facility] Stop: 05/11/24 20:14 Last Admin: 05/10/24 21:22 Dose: 75 mls/hr Cefepime HCl (Maxipime 2000mg) 2,000 mg in 20 mls @ 5 mls/min IV Q8H [facility]; Protocol Stop: 05/16/24 00:00 Last Admin: 05/11/24 00:10 Dose: 5 mls/min Ipratropium Sumner (Ipratropium Sumner Neb Soln 0.02% 0.5mg/2.5ml Vial) 0.5 mg NEB Q6R [facility] Stop: 06/09/24 23:05 Last Admin: 05/11/24 08:01 Dose: 0.5 mg Isosorbide Mononitrate (Isosorbide Shackelford Extended Rel 60 Mg Tabcr) 60 mg PO QAM [facility] Stop: 06/10/24 08:59 Lactobacillus Acidophilus (Advanced Probiotic 625 Mg Capsule) 1,250 mg PO DAILY [facility] Stop: 06/09/24 23:05 Last Admin: 05/11/24 01:54 Dose: Not Given Levalbuterol HCl (Levalbuterol 1.25 Mg/3 Ml Neb) 1.25 mg NEB Q6R [facility] Stop: 06/09/24 23:05 Last Admin: 05/11/24 08:01 Dose: 1.25 mg Lisinopril (Lisinopril 40 Mg Tab) 40 mg PO QAM [facility] Stop: 06/10/24 08:59 Miscellaneous (Remove Nicoderm Patch) 1 each N/A DAILY@0859 [facility] Stop: 06/10/24 08:58 Nicotine (Nicotine 14 Mg/24 Hr Patch) 1 patch TD QAM [facility] Stop: 06/10/24 08:59 Paroxetine HCl (Paroxetine Hcl 20 Mg Tab) 60 mg PO DAILY [facility] Stop: 06/10/24 08:59 Rosuvastatin Calcium (Rosuvastatin Calcium 20 Mg Tab) 40 mg PO HS [facility] Stop: 06/09/24 20:59 Last Admin: 05/10/24 23:55 Dose: 40 mg Sodium Chloride (Sodium Chlor 7% 4 Ml Neb) 4 ml NEB BIDR [facility] Stop: 06/09/24 23:05 Last Admin: 05/11/24 08:02 Dose: 4 ml Umeclidinium Sumner (Umeclidinium Sumner 62.5mcg/Blister 7 Puffs/Inhaler) 1 puffs INH DAILY HUSSEIN Stop: 06/10/24 08:59
[2024-05-11] MEDS: FLUTICASONE/VILANTEROL 100/25MCG 14 PUFFS/INHALER INH SCH (08:19)
[2024-05-11] MEDS: amLODIPine BESYLATE 5 MG TAB PO SCH (08:19)
[2024-05-11] MEDS: UMECLIDINIUM BROMIDE 62.5MCG/BLISTER 7 PUFFS/INHALER INH SCH (08:20)
[2024-05-11] MEDS: lisinopril 40 MG TAB PO SCH (08:20)
[2024-05-11] MEDS: PARoxetine HCL 20 MG TAB PO SCH (08:20)
[2024-05-11] MEDS: ISOSORBIDE MONO EXTENDED REL 60 MG TABCR PO SCH (08:20)
[2024-05-11] MEDS: NICOTINE 14 MG/24 HR PATCH TD SCH (08:24)
[2024-05-11 08:31] LABS: BUN Creatinine Ratio 35.8 (10-20); Calcium 9.2 mg/dl (8.6-10.3); Creatinine Clr Calc Pharmacy 83.2 ml/min; Potassium 3.9 mmol/L (3.5-5.1)
--- NOTE | 2024-05-11 11:15 | Ultrasound Report ---
BILATERAL LOWER EXTREMITY VENOUS DOPPLER CLINICAL HISTORY: elevated d dimer COMPARISON STUDY: Left lower extremity venous Doppler ultrasound January 31, 2024. Right lower extre mity venous Doppler ultrasound February 03, 2020. TECHNIQUE: Sonography of the deep venous system of the bilateral lower extremities was performed. Co mpression and augmentation were evaluated. FINDINGS: The bilateral common femoral, superficial femoral and popliteal veins were compressible. A ugmentation was normal. Flow was shown within the deep calf vessels. IMPRESSION: No evidence of deep venous thrombus within the bilateral lower extremities. ACT 112: Negative or not required by law. Electronically signed by: Aston Dougherty M.D. 05/11/2024 11:14 AM
[2024-05-11] MEDS: ACETAMINOPHEN 325 MG TAB PO PRN (20:04)
--- NOTE | 2024-05-12 06:03 | Electrocardiogram Report ---
Test Reason : Blood Pressure : */* mmHG Vent. Rate : 63 BPM Atrial Rate : 63 BPM P-R Int : 152 ms QRS Dur : 92 ms QT Int : 416 ms P-R-T Axes : 114 213 85 degrees QTcB Int : 425 ms Suspect arm lead reversal, interpretation assumes no reversal Sinus rhythm with Premature atrial complexes Right superior axis deviation Abnormal ECG When compared with ECG of 10-Mar-2024 16:12, Premature atrial complexes are now Present QRS axis Shifted left T wave inversion more evident in Anterolateral leads QT has lengthened Confirmed by Khris Goodman ([id number]) on 05/10/2024 3:55:31 PM Referred By: REFERRED SELF Confirmed By: Khris Goodman
[2024-05-12 06:18] LABS: Hematocrit (blood only) 41.1 % (37.0-47.0); Hemoglobin 13.9 g/dl (12.0-16.0); Mean Corpuscular Hemoglobin 32.3 pg (25.0-34.0); Mean Corpuscular Hgb Conc 33.8 g/dL (32.0-36.0); Mean Corpuscular Volume 95.4 fL (80.0-100.0); Mean Platelet Volume 9.5 fL (9.4-12.4); Platelet Count 244 K/uL (130-400); RDW Coefficient of Variation 13.7 % (11.5-14.5); RDW Standard Deviation 48.6 fL (36.4-46.3); Red Blood Count 4.31 M/uL (4.20-5.40); White Blood Count 10.24 K/ul (4.8-10.8)
[2024-05-12 06:35] LABS: BUN Creatinine Ratio 36.5 (10-20); Calcium 8.6 mg/dl (8.6-10.3); Creatinine Clr Calc Pharmacy 75.3 ml/min; Magnesium 2.1 mg/dl (1.7-2.4); Phosphorus 3.5 mg/dl (2.5-4.9); Potassium 4.5 mmol/L (3.5-5.1)
--- NOTE | 2024-05-12 08:35 | Hospitalist Progress Note ---
Date of Service May 12, 2024 Assessment & Plan (1) Acute hypoxemic respiratory failure: (2) Acute exacerbation of chronic obstructive pulmonary disease (COPD): Plan: Patient is a 78-year-old female with history of COPD, smoker, nocturnal hypoxia, CAD/CABG, history of atrial flutter, prediabetes, hypertension, depression and anxiety, presenting with productive cough and shortness of breath x 1 week. Acute hypoxemic respiratory failure secondary to COPD exacerbation, acute bronchitis History of obstructive sleep apnea Negative bio fire panel Chest x-ray: No pneumonia Currently on 3 L of O2 via cannula At home, uses 2.5 L of O2 supplement only at night Check blood cultures in light of fevers and chills at home Check sputum culture and nasal MRSA swab (nasal MRSA negative) Started cefepime plus doxycycline on admission - will cont. for now Xopenex, Atrovent 4 times daily Hypertonic saline twice daily Mucinex 600 twice daily, incentive spirometry, flutter valve D dimer Elevated: 830 Ct Angio chest obtained - 1. No pulmonary embolus. 2. Airspace opacity of the left lower lobe favors atelectasis, however there are filling defects of the adjacent bronchi and as such aspiration to be included on the differential. 3. Small filling defect of a bronchi of the left lower lobe could represent mucous plugs or aspiration. 4. There is dilation of the pulmonary arteries. This is concerning for pulmonary artery hypertension. Doppler US ordered - no DVT Smoker Currently on nicotine patch 21 mcg daily since last week, will continue Mild troponin elevation History of CAD/CABG History of atrial flutter Troponin 19, repeat downtrending EKG: Nonspecific T wave changes in the anterolateral leads, new compared to last EKG Mild troponin elevation likely secondary to demand ischemia No chest pain or other cardiac symptoms Not on aspirin, started aspirin 81 mg p.o. daily on admission, will cont. Continue statin Echocardiogram obtained - LV wall motion is normal, LV is hyperdynamic. LVEF~70%, RV is normal in size. No significant valvular disease. Pre-DM BSG 117 Monitor Hypertension Continue amlodipine plus lisinopril Depression, anxiety Continue usual meds DVT prophylaxis - Lovenox CODE STATUS full code per patient Disposition- Lives at home Admission and Anticipated Discharge Date Admission Date: May 10, 2024 Subjective Pt seen in follow up of COPD exacerb., acute bronchitis Pt reports to be a long time smoker Uses O2 at night, currently lying in bed in NAD, on 3L of suppl. O2 + cough reports nausea, thinks she is withdrawing from nicotine denies any chest pain, abd. pain sputum cultx - pending Review of Systems Review of Systems: All systems reviewed & are unremarkable except as noted in Subjective Physical Exam Physical Exam: General- oriented x 3, not in distress, speaks in sentences with no effort or accessory muscle use Head- atraumatic Eyes- PERRL, EOMI, anicteric Neck- supple, no JVD Lungs- Positive diffuse scattered rhonchi b/l, + cough Heart- normal rate, regular rhythm; no murmur Abdomen- normal bowel sounds, nondistended, soft, nontender Extremities- Mild pretibial edema, peripheral pulses intact Neuro- alert, oriented x 3; answers appropriately, speech fluent, moves e xtremities Skin- warm & dry Results & Data Results & Data Vital Signs (Past 12 Hours) Vital Signs Temp Pulse Pulse Resp BP Pulse Ox O2 Del Method 05/12/24 07:41 36.6 C 61 18 143/81 H 90 Nasal Cannula 05/12/24 06:14 68 22 92 Nasal Cannula 05/12/24 02:44 36.5 C 80 16 140/88 92 Nasal Cannula 05/11/24 23:31 36.7 C 87 18 148/86 H 92 Nasal Cannula 05/11/24 22:07 73 O2 Flow Rate 05/12/24 07:41 3 05/12/24 06:14 3 05/12/24 02:44 3.0 05/11/24 23:31 3.0 05/11/24 22:07 Laboratory Results 05/12/24 Range/Units 05:54 WBC 10.24 (4.8-10.8) K/ul RBC 4.31 (4.20-5.40) M/uL Hgb 13.9 (12.0-16.0) g/dl Hct 41.1 (37.0-47.0) % MCV 95.4 (80.0-100.0) fL MCH 32.3 (25.0-34.0) pg MCHC 33.8 (32.0-36.0) g/dL RDW Std Deviation 48.6 H (36.4-46.3) fL RDW Coeff of Bryan 13.7 (11.5-14.5) % Plt Count 244 (130-400) K/uL MPV 9.5 (9.4-12.4) fL Sodium 137 (136-145) mmol/L Potassium 4.5 (3.5-5.1) mmol/L Chloride 106 (98-107) mmol/L Carbon Dioxide 28 (21-32) mmol/L Anion Gap 3 (3-11) BUN 27 H (6-23) mg/dl Creatinine 0.74 (0.6-1.2) mg/dl Est Cr Clr Drug Dosing 75.3 ml/min eGFR 82.76 BUN/Creatinine Ratio 36.5 H (10-20) Glucose 153 H (70-99(Fasting)) mg/dl Calcium 8.6 (8.6-10.3) mg/dl Phosphorus 3.5 (2.5-4.9) mg/dl Magnesium 2.1 (1.7-2.4) mg/dl Medications Administered Current Inpatient Medications Acetaminophen (Acetaminophen 325 Mg Tab) 650 mg PO Q4H PRN PRN Reason: Pain or Fever Stop: 06/09/24 23:05 Last Admin: 05/11/24 20:04 Dose: 650 mg Alprazolam (Alprazolam 0.5 Mg Tablet) 1 mg PO HS [facility] Stop: 06/09/24 20:59 Last Admin: 05/11/24 20:10 Dose: 1 mg Amlodipine Besylate (Amlodipine Besylate 5 Mg Tab) 5 mg PO QAM [facility] Stop: 06/10/24 08:59 Last Admin: 05/11/24 08:19 Dose: 5 mg Artificial Tears (Artificial Tears) 1 drops OP TID PRN PRN Reason: Dryness Stop: 06/09/24 19:05 Aspirin (Aspirin 81 Mg Ectab) 81 mg PO DAILY [facility] Stop: 06/09/24 23:05 Last Admin: 05/11/24 08:19 Dose: 81 mg Carvedilol (Carvedilol 3.125 Mg Tab) 3.125 mg PO BID [facility] Stop: 06/09/24 20:59 Last Admin: 05/11/24 20:16 Dose: 3.125 mg Doxycycline Hyclate (Doxycycline Hyclate 100 Mg Cap) 100 mg PO BID [facility] Stop: 05/15/24 23:05 Last Admin: 05/11/24 20:16 Dose: 100 mg Enoxaparin Sodium (Enoxaparin Inj 40 Mg/0.4 Ml Syr) 40 mg SQ PM [facility] Stop: 06/09/24 23:05 Last Admin: 05/11/24 20:15 Dose: 40 mg Fluticasone/Vilanterol (Fluticasone/Vilanterol 100/25mcg 14 Puffs/Inhaler) 1 puffs INH QAM [facility] Stop: 06/10/24 08:59 Last Admin: 05/11/24 08:19 Dose: 1 puffs Guaifenesin (Guaifenesin 600 Mg Tabcr) 600 mg PO Q12 [facility] Stop: 06/09/24 23:05 Last Admin: 05/11/24 20:14 Dose: 600 mg Hydroxyzine HCl (Hydroxyzine Hcl 25 Mg Tab) 25 mg PO TID PRN PRN Reason: Anxiety Stop: 06/09/24 18:56 Methylprednisolone 40 mg/ (Syringe) 0.64 mls @ 1.5 mls/min IV Q8H [facility] Stop: 06/09/24 19:14 Last Admin: 05/12/24 04:02 Dose: 1.5 mls/min Cefepime HCl (Maxipime 2000mg) 2,000 mg in 20 mls @ 5 mls/min IV Q8H [facility]; Protocol Stop: 05/16/24 00:00 Last Admin: 05/12/24 00:08 Dose: 5 mls/min Ipratropium [place] (Ipratropium [place] Neb Soln 0.02% 0.5mg/2.5ml Vial) 0.5 mg NEB Q6R [facility] Stop: 06/09/24 23:05 Last Admin: 05/12/24 06:13 Dose: 0.5 mg Isosorbide Mononitrate (Isosorbide [place] Extended Rel 60 Mg Tabcr) 60 mg PO QAM [facility] Stop: 06/10/24 08:59 Last Admin: 05/11/24 08:20 Dose: 60 mg Lactobacillus Acidophilus (Advanced Probiotic 625 Mg Capsule) 1,250 mg PO DAILY [facility] Stop: 06/09/24 23:05 Last Admin: 05/11/24 08:20 Dose: 1,250 mg Levalbuterol HCl (Levalbuterol 1.25 Mg/3 Ml Neb) 1.25 mg NEB Q6R [facility] Stop: 06/09/24 23:05 Last Admin: 05/12/24 06:13 Dose: 1.25 mg Lisinopril (Lisinopril 40 Mg Tab) 40 mg PO QAM [facility] Stop: 06/10/24 08:59 Last Admin: 05/11/24 08:20 Dose: 40 mg Miscellaneous (Remove Nicoderm Patch) 1 each N/A DAILY@0859 [facility] Stop: 06/10/24 08:58 Last Admin: 05/11/24 08:24 Dose: 1 each Nicotine (Nicotine 14 Mg/24 Hr Patch) 1 patch TD QAM [facility] Stop: 06/10/24 08:59 Last Admin: 05/11/24 08:24 Dose: 1 patch Paroxetine HCl (Paroxetine Hcl 20 Mg Tab) 60 mg PO DAILY [facility] Stop: 06/10/24 08:59 Last Admin: 05/11/24 08:20 Dose: 60 mg Rosuvastatin Calcium (Rosuvastatin Calcium 20 Mg Tab) 40 mg PO HS [facility] Stop: 06/09/24 20:59 Last Admin: 05/11/24 20:16 Dose: 40 mg Sodium Chloride (Sodium Chlor 7% 4 Ml Neb) 4 ml NEB BIDR [facility] Stop: 06/09/24 23:05 Last Admin: 05/12/24 06:13 Dose: 4 ml Umeclidinium [place] (Umeclidinium [place] 62.5mcg/Blister 7 Puffs/Inhaler) 1 puffs INH DAILY [facility] Stop: 06/10/24 08:59 Last Admin: 05/11/24 08:20 Dose: 1 puffs
[2024-05-12] MEDS: FUROSEMIDE INJ 20 MG/2 ML VIAL IV ONE (12:49)
[2024-05-12] MEDS: NICOTINE POLACRILEX 2 MG GUM MT PRN (12:51)
[2024-05-13 06:28] LABS: Hematocrit (blood only) 41.6 % (37.0-47.0); Hemoglobin 14.1 g/dl (12.0-16.0); Mean Corpuscular Hemoglobin 32.1 pg (25.0-34.0); Mean Corpuscular Hgb Conc 33.9 g/dL (32.0-36.0); Mean Corpuscular Volume 94.8 fL (80.0-100.0); Mean Platelet Volume 9.7 fL (9.4-12.4); Platelet Count 248 K/uL (130-400); RDW Coefficient of Variation 13.7 % (11.5-14.5); Red Blood Count 4.39 M/uL (4.20-5.40); White Blood Count 8.72 K/ul (4.8-10.8)
[2024-05-13 06:55] LABS: BUN Creatinine Ratio 39.4 (10-20); Calcium 8.7 mg/dl (8.6-10.3); Creatinine Clr Calc Pharmacy 78.5 ml/min; Magnesium 2.1 mg/dl (1.7-2.4); Phosphorus 3.4 mg/dl (2.5-4.9); Potassium 4.1 mmol/L (3.5-5.1)
--- NOTE | 2024-05-13 08:03 | Hospitalist Progress Note ---
Date of Service May 13, 2024 Assessment & Plan (1) Acute hypoxemic respiratory failure: Plan: (1) Acute hypoxemic respiratory failure: (2) Acute exacerbation of chronic obstructive pulmonary disease (COPD): Plan: Patient is a 78-year-old female with history of COPD, smoker, nocturnal hypoxia, CAD/CABG, history of atrial flutter, prediabetes, hypertension, depression and anxiety, presenting with productive cough and shortness of breath x 1 week. Acute hypoxemic respiratory failure secondary to COPD exacerbation, acute bronchitis History of obstructive sleep apnea Negative bio fire panel Chest x-ray: No pneumonia Currently on 3 L of O2 via cannula At home, uses 2.5 L of O2 supplement only at night Check blood cultures in light of fevers and chills at home - blood cultx negat. so far Check sputum culture and nasal MRSA swab (nasal MRSA negative) Started cefepime plus doxycycline on admission - will cont. for now Xopenex, Atrovent 4 times daily Hypertonic saline twice daily Mucinex 600 twice daily, incentive spirometry, flutter valve D dimer Elevated: 830 Ct Angio chest obtained - 1. No pulmonary embolus. 2. Airspace opacity of the left lower lobe favors atelectasis, however there are filling defects of the adjacent bronchi and as such aspiration to be included on the differential. 3. Small filling defect of a bronchi of the left lower lobe could represent mucous plugs or aspiration. 4. There is dilation of the pulmonary arteries. This is concerning for pulmonary artery hypertension. Doppler US ordered - no DVT Smoker Currently on nicotine patch 21 mcg daily since last week, will continue counselled pt on smoking cessation. she is eager to quit smoking Mild troponin elevation History of CAD/CABG History of atrial flutter Troponin 19, repeat downtrending EKG: Nonspecific T wave changes in the anterolateral leads, new compared to last EKG Mild troponin elevation likely secondary to demand ischemia No chest pain or other cardiac symptoms Not on aspirin, started aspirin 81 mg p.o. daily on admission, will cont. Continue statin Echocardiogram obtained - LV wall motion is normal, LV is hyperdynamic. LVEF~70%, RV is normal in size. No significant valvular disease. Pre-DM BSG 117 Monitor Hypertension Continue amlodipine plus lisinopril Depression, anxiety Continue usual meds DVT prophylaxis - Lovenox CODE STATUS full code per patient Disposition- Lives at home Admission and Anticipated Discharge Date Admission Date: May 10, 2024 Subjective Pt seen in follow up of COPD exacerb., acute bronchitis Pt reports to be a long time smoker Uses O2 at night, currently lying in bed in NAD, on 3L of suppl. O2 + cough nausea improved denies any chest pain, abd. pain sputum cultx - pending collection Had a prolonged discussion about tobacco cessation with the pt. She is eager to try to quit smoking. Review of Systems Review of Systems: All systems reviewed & are unremarkable except as noted in Subjective Physical Exam Physical Exam: General- oriented x 3, not in distress, speaks in sentences with no effort or accessory muscle use Head- atraumatic Eyes- PERRL, EOMI, anicteric Neck- supple, no JVD Lungs- Positive diffuse scattered rhonchi b/l, + cough Heart- normal rate, regular rhythm; no murmur Abdomen- normal bowel sounds, nondistended, soft, nontender Extremities- Mild pretibial edema, peripheral pulses intact Neuro- alert, oriented x 3; answers appropriately, speech fluent, moves extremities Skin- warm & dry Results & Data Results & Data Vital Signs (Past 12 Hours) Vital Signs Temp Pulse Pulse Resp BP Pulse Ox O2 Del Method 05/13/24 07:43 36.6 C 65 18 172/89 H 92 Nasal Cannula 05/13/24 07:14 56 L 16 94 Nasal Cannula 05/13/24 03:16 36.7 C 90 17 148/69 H 98 Nasal Cannula 05/12/24 23:11 36.8 C 82 19 165/72 H 92 Nasal Cannula 05/12/24 21:51 68 05/12/24 21:00 Nasal Cannula O2 Flow Rate 05/13/24 07:43 3 05/13/24 07:14 3 05/13/24 03:16 3.0 05/12/24 23:11 3.0 05/12/24 21:51 05/12/24 21:00 Laboratory Results 05/13/24 Range/Units 05:50 WBC 8.72 (4.8-10.8) K/ul RBC 4.39 (4.20-5.40) M/uL Hgb 14.1 (12.0-16.0) g/dl Hct 41.6 (37.0-47.0) % MCV 94.8 (80.0-100.0) fL MCH 32.1 (25.0-34.0) pg MCHC 33.9 (32.0-36.0) g/dL RDW Std Deviation 48.0 H (36.4-46.3) fL RDW Coeff of Bryan 13.7 (11.5-14.5) % Plt Count 248 (130-400) K/uL MPV 9.7 (9.4-12.4) fL Sodium 138 (136-145) mmol/L Potassium 4.1 (3.5-5.1) mmol/L Chloride 104 (98-107) mmol/L Carbon Dioxide 30 (21-32) mmol/L Anion Gap 4 (3-11) BUN 28 H (6-23) mg/dl Creatinine 0.71 (0.6-1.2) mg/dl Est Cr Clr Drug Dosing 78.5 ml/min eGFR 86.98 BUN/Creatinine Ratio 39.4 H (10-20) Glucose 163 H (70-99(Fasting)) mg/dl Calcium 8.7 (8.6-10.3) mg/dl Phosphorus 3.4 (2.5-4.9) mg/dl Magnesium 2.1 (1.7-2.4) mg/dl Medications Administered Current Inpatient Medications Acetaminophen (Acetaminophen 325 Mg Tab) 650 mg PO Q4H PRN PRN Reason: Pain or Fever Stop: 06/09/24 23:05 Last Admin: 05/13/24 01:14 Dose: 650 mg Alprazolam (Alprazolam 0.5 Mg Tablet) 1 mg PO HS [facility] Stop: 06/09/24 20:59 Last Admin: 05/12/24 20:52 Dose: 1 mg Amlodipine Besylate (Amlodipine Besylate 5 Mg Tab) 5 mg PO QAM [facility] Stop: 06/10/24 08:59 Last Admin: 05/12/24 09:07 Dose: 5 mg Artificial Tears (Artificial Tears) 1 drops OP TID PRN PRN Reason: Dryness Stop: 06/09/24 19:05 Aspirin (Aspirin 81 Mg Ectab) 81 mg PO DAILY [facility] Stop: 06/09/24 23:05 Last Admin: 05/12/24 09:07 Dose: 81 mg Carvedilol (Carvedilol 3.125 Mg Tab) 3.125 mg PO BID [facility] Stop: 06/09/24 20:59 Last Admin: 05/12/24 20:56 Dose: 3.125 mg Doxycycline Hyclate (Doxycycline Hyclate 100 Mg Cap) 100 mg PO BID [facility] Stop: 05/15/24 23:05 Last Admin: 05/12/24 20:54 Dose: 100 mg Enoxaparin Sodium (Enoxaparin Inj 40 Mg/0.4 Ml Syr) 40 mg SQ PM [facility] Stop: 06/09/24 23:05 Last Admin: 05/12/24 20:54 Dose: 40 mg Fluticasone/Vilanterol (Fluticasone/Vilanterol 100/25mcg 14 Puffs/Inhaler) 1 puffs INH QAM [facility] Stop: 06/10/24 08:59 Last Admin: 05/12/24 09:06 Dose: 1 puffs Guaifenesin (Guaifenesin 600 Mg Tabcr) 600 mg PO Q12 [facility] Stop: 06/09/24 23:05 Last Admin: 05/12/24 20:53 Dose: 600 mg Hydroxyzine HCl (Hydroxyzine Hcl 25 Mg Tab) 25 mg PO TID PRN PRN Reason: Anxiety Stop: 06/09/24 18:56 Methylprednisolone 40 mg/ (Syringe) 0.64 mls @ 1.5 mls/min IV Q8H [facility] Stop: 06/09/24 19:14 Last Admin: 05/13/24 02:57 Dose: 1.5 mls/min Cefepime HCl (Maxipime 2000mg) 2,000 mg in 20 mls @ 5 mls/min IV Q8H [facility]; Protocol Stop: 05/16/24 00:00 Last Admin: 05/13/24 00:51 Dose: 5 mls/min Ipratropium [place] (Ipratropium [place] Neb Soln 0.02% 0.5mg/2.5ml Vial) 0.5 mg NEB Q6R [facility] Stop: 06/09/24 23:05 Last Admin: 05/13/24 07:14 Dose: 0.5 mg Isosorbide Mononitrate (Isosorbide [place] Extended Rel 60 Mg Tabcr) 60 mg PO QAM [facility] Stop: 06/10/24 08:59 Last Admin: 05/12/24 09:07 Dose: 60 mg Lactobacillus Acidophilus (Advanced Probiotic 625 Mg Capsule) 1,250 mg PO DAILY [facility] Stop: 06/09/24 23:05 Last Admin: 05/12/24 09:08 Dose: 1,250 mg Levalbuterol HCl (Levalbuterol 1.25 Mg/3 Ml Neb) 1.25 mg NEB Q6R [facility] Stop: 06/09/24 23:05 Last Admin: 05/13/24 07:14 Dose: 1.25 mg Lisinopril (Lisinopril 40 Mg Tab) 40 mg PO QAM [facility] Stop: 06/10/24 08:59 Last Admin: 05/12/24 09:08 Dose: 40 mg Miscellaneous (Remove Nicoderm Patch) 1 each N/A DAILY@0859 [facility] Stop: 06/10/24 08:58 Last Admin: 05/12/24 09:08 Dose: 1 each Nicotine (Nicotine 14 Mg/24 Hr Patch) 1 patch TD QAM [facility] Stop: 06/10/24 08:59 Last Admin: 05/12/24 09:08 Dose: 1 patch Nicotine Polacrilex (Nicotine Polacrilex 2 Mg Gum) 1 piece MT Q2H PRN PRN Reason: Agitation Stop: 06/11/24 11:46 Last Admin: 05/12/24 12:51 Dose: 1 piece Paroxetine HCl (Paroxetine Hcl 20 Mg Tab) 60 mg PO DAILY [facility] Stop: 06/10/24 08:59 Last Admin: 05/12/24 09:08 Dose: 60 mg Rosuvastatin Calcium (Rosuvastatin Calcium 20 Mg Tab) 40 mg PO HS [facility] Stop: 06/09/24 20:59 Last Admin: 05/12/24 20:57 Dose: 40 mg Sodium Chloride (Sodium Chlor 7% 4 Ml Neb) 4 ml NEB BIDR [facility] Stop: 06/09/24 23:05 Last Admin: 05/13/24 07:14 Dose: 4 ml Umeclidinium [place] (Umeclidinium [place] 62.5mcg/Blister 7 Puffs/Inhaler) 1 puffs INH DAILY [facility] Stop: 06/10/24 08:59 Last Admin: 05/12/24 09:05 Dose: 1 puffs
[2024-05-14 07:04] LABS: Hematocrit (blood only) 43.4 % (37.0-47.0); Hemoglobin 14.8 g/dl (12.0-16.0); Mean Corpuscular Hemoglobin 32.3 pg (25.0-34.0); Mean Corpuscular Hgb Conc 34.1 g/dL (32.0-36.0); Mean Corpuscular Volume 94.8 fL (80.0-100.0); Mean Platelet Volume 9.8 fL (9.4-12.4); Platelet Count 246 K/uL (130-400); Red Blood Count 4.58 M/uL (4.20-5.40); White Blood Count 6.87 K/ul (4.8-10.8)
[2024-05-14 07:18] LABS: BUN Creatinine Ratio 39.1 (10-20); Calcium 8.6 mg/dl (8.6-10.3); Magnesium 2.2 mg/dl (1.7-2.4); Phosphorus 3.8 mg/dl (2.5-4.9); Potassium 4.3 mmol/L (3.5-5.1)
--- NOTE | 2024-05-14 15:39 | Hospitalist Progress Note ---
Date of Service May 14, 2024 Assessment & Plan (1) Acute hypoxemic respiratory failure: Plan: Patient is a 78-year-old female with past medical history significant for COPD, smoker, nocturnal hypoxia, CAD/CABG, history of atrial flutter, prediabetes, hypertension, depression and anxiety who presented with productive cough and shortness of breath x 1 week. Acute on Chronic hypoxemic respiratory failure COPD Exacerbation History of obstructive sleep apnea Chronic tobacco use Pt presenting with SOB Negative respiratory biofire panel Chest x-ray: No pneumonia D-dimer elevated, CTA chest with no noted PE but did note possible aspiration, mucous plugging and concern for Pulm HTN. Doppler bilat lower extremities with no DVT. VBG noting pH 7.33, pCO2 70, HCO3 37 MRSA nares negative Blood Cx x2 sets NGTD sputum cx not able to be obtained Was on 3 L of O2 via cannula. At home, uses 2.5 L of O2 supplement only at nighttime Xopenex, Atrovent 4 times daily Hypertonic saline twice daily Mucinex 600 twice daily, incentive spirometry, flutter valve Was on IV solumedrol for 4 days, transitioned to po prednisone to complete an extended taper course given severity of symptoms Was on Cefepime and doxycycline-transitioned to po Augmentin and doxycycline to complete 10 days of treatment (day 07/03 today) 2 step completed on 05/14 noting need for 2L O2 with ambulation Consider pulmonary followup if no improvement. Nicotine patch as needed Continue to monitor Pulmonary HTN CTA chest concerning for pulm HTN Echo with EF >70%, right ventricle normal, Grade 1 diastolic dysfunction. No suggestion of pulm HTN Mild troponin elevation History of CAD/CABG History of atrial flutter Troponin 19, repeat downtrending EKG sinus with PACs Echo as above: with EF > 70%, right ventricle normal, Grade 1 diastolic dysfunction. No suggestion of pulm HTN Mild troponin elevation likely secondary to demand ischemia No chest pain or other cardiac symptoms Not on aspirin, was started on aspirin 81 mg p.o. daily on admission Continue statin, BB, Imdur Echocardiogram obtained - LV wall motion is normal, LV is hyperdynamic. LVEF~70%, RV is normal in size. No significant valvular disease. Continue to monitor on telemetry Pre-DM BSG 117 AM [id number] Monitor Hypertension Continue amlodipine plus lisinopril Also on coreg Depression, anxiety Continue home meds Diet: HH DVT prophylaxis: Lovenox CODE STATUS full code per patient Disposition: PT/OT recommending home with home PT, needs O2 for discharge Admission and Anticipated Discharge Date Admission Date: May 10, 2024 Subjective pt was seen many times during the day In the Am stated that her symptoms were better Later had 2 step completed and requiring 2L with ambulation Son called and updated Review of Systems Review of Systems: All systems reviewed & are unremarkable except as noted in Subjective Physical Exam Physical Exam: General: Alert, oriented. No acute distress HEENT: NC/AT, NC in nares CV: RRR Resp: Breath sounds decreased bilaterally, slight wheeze,NC in nares Abdomen: Soft, nontender Extremities: No edema in lower extremities bilaterally. Results & Data Results & Data Vital Signs (Past 12 Hours) Vital Signs Temp Pulse Pulse Resp BP Pulse Ox O2 Del Method 05/14/24 11:14 36.4 C L 75 18 162/79 H 90 Nasal Cannula 05/14/24 10:20 49 L 05/14/24 09:36 Nasal Cannula 05/14/24 07:49 36.6 C 63 18 163/92 H 91 Nasal Cannula 05/14/24 07:04 47 L 18 93 Nasal Cannula 05/14/24 04:01 36.6 C 52 L 18 148/90 H 92 Nasal Cannula 05/14/24 00:46 72 18 94 Nasal Cannula O2 Flow Rate 05/14/24 11:14 2 05/14/24 10:20 05/14/24 09:36 2 05/14/24 07:49 3 05/14/24 07:04 3 05/14/24 04:01 3 05/14/24 00:46 3 Diagnostic Findings Chest X-Ray 05/10/24 11:56 XR chest 1V portable CLINICAL HISTORY: Dyspnea COMPARISON STUDY: Chest radiograph March 10, 2024. Chest CT May 10, 2018. FINDINGS: Mild elevation/eventration of the right hemidiaphragm is unchanged. There is no consolidation. Minimal bibasilar opacities favor atelectasis. There is no pneumothorax or pleural effusion. Cardiac size is normal. Mediastinal contours are normal. There is no evidence for pulmonary edema. IMPRESSION: No acute cardiopulmonary findings. No change in appearance of the chest. ACT 112: Negative or not required by law. Electronically signed by: Aston Dougherty M.D. 05/10/2024 12:45 PM Chest CTA 05/10/24 20:08 Exam(s): CTA CHEST IV Amt: 118 cc opti 320 EXAM: CT Angiography Chest With Intravenous Contrast CLINICAL HISTORY: PE. TECHNIQUE: Axial computed tomographic angiography images of the chest with intravenous contrast. MIPS images were created and reviewed. CTDI is 39. 84 mGy and DLP is 932.96 mGy-cm. Automated exposure control was utilized for the study. A dose lowering technique was utilized adhering to the principles of ALARA. MIP reconstructed images were created and reviewed. COMPARISON: CTA chest 05/10/2018 FINDINGS: Pulmonary arteries: There is dilation of the pulmonary arteries. The right pulmonary measures 3.4 cm. The left pulmonary artery measures 3.1 cm. No pulmonary embolism. Aorta: Mild atherosclerosis. No thoracic aortic aneurysm. Lungs: Airspace opacity of the left lower lobe favors atelectasis, however there are filling defects of the adjacent bronchi and as such aspiration to be included on the differential. Small filling defect of a bronchi of the left lower lobe could represent mucous plugs or aspiration. Pleural space: Unremarkable. No significant effusion. No pneumothorax. Heart: Coronary artery calcifications are present. No cardiomegaly. No significant pericardial effusion. No evidence of RV dysfunction. Bones/joints: No fracture. Soft tissues: Unremarkable. Lymph nodes: Unremarkable. No enlarged lymph nodes. IMPRESSION: 1. No pulmonary embolus. 2. Airspace opacity of the left lower lobe favors atelectasis, however there are filling defects of the adjacent bronchi and as such aspiration to be included on the differential. 3. Small filling defect of a bronchi of the left lower lobe could represent mucous plugs or aspiration. 4. There is dilation of the pulmonary arteries. This is concerning for pulmonary artery hypertension. Electronically signed by: Britney Leahy MD 05/10/24 22:53 PM Venous Doppler Study 05/11/24 00:32 BILATERAL LOWER EXTREMITY VENOUS DOPPLER CLINICAL HISTORY: elevated d dimer COMPARISON STUDY: Left lower extremity venous Doppler ultrasound January 31, 2024. Right lower extremity venous Doppler ultrasound February 03, 2020. TECHNIQUE: Sonography of the deep venous system of the bilateral lower extremities was performed. Compression and augmentation were evaluated. FINDINGS: The bilateral common femoral, superficial femoral and popliteal veins were compressible. Augmentation was normal. Flow was shown within the deep calf vessels. IMPRESSION: No evidence of deep venous thrombus within the bilateral lower extremities. ACT 112: Negative or not required by law. Electronically signed by: Aston Duogherty M.D. 05/11/2024 11:14 AM
[2024-05-14] MEDS: AMOXICILLIN/CLAVULANATE 875 MG TAB PO SCH (16:52)
[2024-05-15 07:54] LABS: Hematocrit (blood only) 46.3 % (37.0-47.0); Mean Corpuscular Hemoglobin 32.5 pg (25.0-34.0); Mean Corpuscular Hgb Conc 34.6 g/dL (32.0-36.0); Mean Corpuscular Volume 94.1 fL (80.0-100.0); Mean Platelet Volume 9.7 fL (9.4-12.4); Platelet Count 284 K/uL (130-400); RDW Coefficient of Variation 13.8 % (11.5-14.5); Red Blood Count 4.92 M/uL (4.20-5.40); White Blood Count 10.03 K/ul (4.8-10.8)
[2024-05-15] MEDS: predniSONE 20 MG TAB PO SCH (08:13)
[2024-05-15 08:23] LABS: BUN Creatinine Ratio 35.6 (10-20); Calcium 8.6 mg/dl (8.6-10.3); Creatinine Clr Calc Pharmacy 94.3 ml/min; Magnesium 2.2 mg/dl (1.7-2.4)
--- NOTE | 2024-05-15 11:52 | Discharge Summary ---
Discharge Summary Date of Service May 15, 2024 Principal Dx & Hospital Course #1 = Principal Diagnosis (1) Acute hypoxemic respiratory failure: Patient is a 78-year-old female with past medical history significant for COPD, smoker, nocturnal hypoxia, CAD/CABG, history of atrial flutter, prediabetes, hypertension, depression and anxiety who presented with productive cough and shortness of breath x 1 week. Acute on Chronic hypoxemic respiratory failure COPD Exacerbation History of obstructive sleep apnea Chronic tobacco use Pt presenting with SOB Negative respiratory biofire panel Chest x-ray: No pneumonia D-dimer elevated, CTA chest with no noted PE but did note possible aspiration, mucous plugging and concern for Pulm HTN. Doppler bilat lower extremities with no DVT. VBG noting pH 7.33, pCO2 70, HCO3 37 MRSA nares negative Blood Cx x2 sets NGTD sputum cx not able to be obtained Was on 3 L of O2 via cannula. At home, uses 2.5 L of O2 supplement only at nighttime Xopenex, Atrovent 4 times daily Hypertonic saline twice daily Mucinex 600 twice daily, incentive spirometry, flutter valve Was on IV solumedrol for 4 days, transitioned to po prednisone to complete an extended taper course given severity of symptoms on discharge Was on Cefepime and doxycycline-transitioned to po Augmentin and doxycycline to complete 10 days of treatment. Discharged with the same for an additional 5 days with a probiotic. 2 step completed on 05/14 noting need for 2L O2 with ambulation Outpatient pulmonary followup Nicotine patch as needed- pt requesting it on discharge. Encouraged to not smoke while on oxygen. PCP and pulmonary followup after discharge. Pulmonary HTN CTA chest was concerning for pulm HTN Echo with EF >70%, right ventricle normal, Grade 1 diastolic dysfunction. No s uggestion of pulm HTN Mild troponin elevation History of CAD/CABG History of atrial flutter Troponin 19, repeat downtrending EKG sinus with PACs Echo as above: with EF > 70%, right ventricle normal, Grade 1 diastolic dysfunction. No suggestion of pulm HTN Mild troponin elevation likely secondary to demand ischemia No chest pain or other cardiac symptoms Not on aspirin, was started on aspirin 81 mg p.o. daily on admission Continued statin, BB, Imdur Echocardiogram obtained - LV wall motion is normal, LV is hyperdynamic. LVEF~70%, RV is normal in size. No significant valvular disease. Stable on discharge Pre-DM Pt with Hx of prediabetes Please monitor glucose levels while on extended prednisone taper after discharge repeat hgba1c pending on discharge PCP followup Hypertension Continue amlodipine plus lisinopril Also on coreg Depression, anxiety Continue home meds Notes For Next Care Provider Please monitor glucose levels while on extended prednisone taper Pulmonary follow-up recommended Encourage smoking cessation Wean oxygen as tolerated Medication Changes From Visit Augmentin 875 twice daily for an additional 5 days Doxycycline 5 mg twice daily for an additional 5 days Extended prednisone taper Admission HPI Per Admitting Provider Patient is a 78-year-old female with history of COPD, smoker, nocturnal hypoxia, CAD/CABG, history of atrial flutter, prediabetes, hypertension, depression and anxiety, presenting with productive cough and shortness of breath x 1 week. Since middle of February, patient has had multiple episodes of COPD exacerbations requiring prednisone taper, doxycycline and azithromycin. Her last episode was middle march, for which she required another round of prednisone and Z-Brian. As per patient, for the past week, she has been having progressive cough associated with yellow thick sputum, shortness of breath, and some occasional fever/chills. She also reports some sore throat. She denies having chest pain, palpitations, nausea or vomiting, abdominal pain, other symptoms. Today, she presented to the ER with progressive shortness of breath with productive cough. She was found to be hypoxic in the 80s upon arrival to the ER. She was placed on 4 L of oxygen with improvement of O2 sats. She was also given albuterol and Solu-Medrol. Respiratory panel: Negative Chest x-ray: No acute infiltrates, effusion She had persistent hypoxia and wheezing prompting hospitalist consultation. On exam, patient seen resting in bed, on 3 L of O2 via nasal cannula, comfortable, not in distress, speaking in sentences with no effort. She states she feels somewhat better since admission. No active shortness of breath, chest pain, dizziness, etc. Admission Exam Per Admitting Provider General- oriented x 3, not in distress, speaks in sentences with no effort or accessory muscle use Head- atraumatic Eyes- PERRL, EOMI, anicteric ENT- oropharynx clear Neck- supple, no JVD, no adenopathy, no thyromegaly; carotids +2/2, no bruits appreciated Lungs- Positive diffuse scattered crackles bilaterally with intermittent wheezing, good air entry bilaterally Heart- normal rate, regular rhythm; no murmur, no gallop, no rub appreciated Abdomen- normal bowel sounds, nondistended, soft, nontender, no masses or hepatosplenomegaly Extremities- Mild pretibial edema, no calf tenderness; peripheral pulses intact Neuro- alert, oriented x 3; CN 2-12 grossly intact; motor 5/5 bilaterally;sensation 100% on all extremities; no other gross focal neurologic deficits Skin- warm & dry Discharge Exam General: Alert, oriented. No acute distress HEENT: NC/AT, NC in nares CV: RRR Resp: Breath sounds decreased bilaterally,NC in nares Abdomen: Soft, nontender Extremities: No edema in lower extremities bilaterally. Updated Medication List Medication Instructions Recorded Confirmed Type ascorbic acid (vitamin C) 1,000 mg 500 mg PO QAM 05/10/18 05/10/24 History tablet (Vitamin C) aspirin 81 mg tablet,delayed 81 mg PO UD 05/10/18 05/10/24 History release calcium 600 mg (as carbonate)-vit 1 tab PO DAILY 05/10/18 05/10/24 History D3 20 mcg (800 unit) chewable tablet (Caltrate plus D) omega 1-lgm-qdq-fish oil 1,000 mg 1 cap PO HS 05/10/18 05/10/24 History (120 mg-180 mg) capsule (Fish Oil) paroxetine HCl 30 mg tablet 60 mg PO DAILY 05/10/18 05/10/24 History albuterol sulfate 90 mcg/actuation 2 puff inhalation Q6H PRN SHORT OF 01/14/19 05/10/24 History aerosol inhaler BREATH cyanocobalamin (vitamin B-12) 1,000 mcg PO HS 01/14/19 05/10/24 History 1,000 mcg tablet nitroglycerin 0.4 mg sublingual 0.4 mg sublingual USEASDIRECTD PRN 01/14/19 05/10/24 History tablet Chest Pain sumatriptan succinate 100 mg tablet 100 mg PO UD PRN Migraine Headache 01/14/19 05/10/24 History rosuvastatin 40 mg tablet 40 mg PO HS 10/10/19 05/10/24 History umeclidinium 62.5 mcg/actuation 1 inh inhalation DAILY 02/10/20 05/10/24 History blister powder for inhalation (Incruse Ellipta) alprazolam 1 mg tablet 1 mg PO HS #10 tabs 02/18/20 05/10/24 Rx carvedilol 3.125 mg tablet 3.125 mg PO BID #60 tabs 11/14/21 05/10/24 Rx isosorbide mononitrate 60 mg 60 mg PO QAM #30 tabs 11/14/21 05/10/24 Rx tablet,extended release 24 hr lisinopril 40 mg tablet 40 mg PO QAM 10/20/22 05/10/24 History albuterol sulfate 2.5 mg/3 mL 2.5 mg inhalation DIRECTED PRN 03/18/23 05/10/24 History (0.083 %) solution for nebulization Shortness Of Breath Or Wheezing carboxymethylcellulose sodium 1 % 1 drp OPB TID PRN as directed 03/18/23 05/10/24 History eye drops (Artificial Tears (carboxymethylcellulose)) ipratropium 0.5 mg-albuterol 3 mg 3 ml NEB QIDR PRN NEEDED PER [facility] 03/18/23 05/10/24 History (2.5 mg base)/3 mL nebulization soln prednisone 10 mg tablet 0 mg PO DIRECTED PRN RESCUE KIT 03/18/23 05/10/24 History amlodipine 5 mg tablet 5 mg PO QAM 06/01/23 05/10/24 History fluticasone furoate 100 1 inh inhalation QAM 05/10/24 05/10/24 History mcg-vilanterol 25 mcg/dose inhalation powder (Breo Ellipta) hydroxyzine HCl 25 mg tablet 25 mg PO TID PRN Anxiety 05/10/24 05/10/24 History nicotine 7 mg/24 hr daily 1 patch transdermal QAM #14 ea 05/14/24 Rx transdermal patch Saccharomyces boulardii 250 mg 250 mg PO BID #30 caps 05/15/24 Rx capsule (Florastor) amoxicillin 875 mg-potassium 1 tab PO BIDM #10 tabs 05/15/24 Rx clavulanate 125 mg tablet doxycycline hyclate 100 mg capsule 100 mg PO BID #10 caps 05/15/24 Rx prednisone 5 mg tablet See Rx Instructions PO .COMPLEX 05/15/24 Rx #108 tabs Hospital Stay Data Consultations 05/10/24 14:46 ED Decision to Admit Stat Diagnostic Imagining Performed 05/10/24 20:08 CT angio chest PE protocol Stat 05/11/24 00:32 US venous doppler LE Routine Chest X-Ray 05/10/24 11:56 XR chest 1V portable CLINICAL HISTORY: Dyspnea COMPARISON STUDY: Chest radiograph March 10, 2024. Chest CT May 10, 2018. FINDINGS: Mild elevation/eventration of the right hemidiaphragm is unchanged. There is no consolidation. Minimal bibasilar opacities favor atelectasis. There is no pneumothorax or pleural effusion. Cardiac size is normal. Mediastinal contours are normal. There is no evidence for pulmonary edema. IMPRESSION: No acute cardiopulmonary findings. No change in appearance of the chest. ACT 112: Negative or not required by law. Electronically signed by: Aston Dougherty M.D. 05/10/2024 12:45 PM Chest CTA 05/10/24 20:08 Exam(s): CTA CHEST IV Amt: 118 cc opti 320 EXAM: CT Angiography Chest With Intravenous Contrast CLINICAL HISTORY: PE. TECHNIQUE: Axial computed tomographic angiography images of the chest with intravenous contrast. MIPS images were created and reviewed. CTDI is 39. 84 mGy and DLP is 932.96 mGy-cm. Automated exposure control was utilized for the study. A dose lowering technique was utilized adhering to the principles of ALARA. MIP reconstructed images were created and reviewed. COMPARISON: CTA chest 05/10/2018 FINDINGS: Pulmonary arteries: There is dilation of the pulmonary arteries. The right pulmonary measures 3.4 cm. The left pulmonary artery measures 3.1 cm. No pulmonary embolism. Aorta: Mild atherosclerosis. No thoracic aortic aneurysm. Lungs: Airspace opacity of the left lower lobe favors atelectasis, however there are filling defects of the adjacent bronchi and as such aspiration to be included on the differential. Small filling defect of a bronchi of the left lower lobe could represent mucous plugs or aspiration. Pleural space: Unremarkable. No significant effusion. No pneumothorax. Heart: Coronary artery calcifications are present. No cardiomegaly. No significant pericardial effusion. No evidence of RV dysfunction. Bones/joints: No fracture. Soft tissues: Unremarkable. Lymph nodes: Unremarkable. No enlarged lymph nodes. IMPRESSION: 1. No pulmonary embolus. 2. Airspace opacity of the left lower lobe favors atelectasis, however there are filling defects of the adjacent bronchi and as such aspiration to be included on the differential. 3. Small filling defect of a bronchi of the left lower lobe could represent mucous plugs or aspiration. 4. There is dilation of the pulmonary arteries. This is concerning for pulmonary artery hypertension. Electronically signed by: Britney Leahy MD 05/10/24 22:53 PM Venous Doppler Study 05/11/24 00:32 BILATERAL LOWER EXTREMITY VENOUS DOPPLER CLINICAL HISTORY: elevated d dimer COMPARISON STUDY: Left lower extremity venous Doppler ultrasound January 31, 2024. Right lower extremity venous Doppler ultrasound February 03, 2020. TECHNIQUE: Sonography of the deep venous system of the bilateral lower extremities was performed. Compression and augmentation were evaluated. FINDINGS: The bilateral common femoral, superficial femoral and popliteal veins were compressible. Augmentation was normal. Flow was shown within the deep calf vessels. IMPRESSION: No evidence of deep venous thrombus within the bilateral lower extremities. ACT 112: Negative or not required by law. Electronically signed by: Aston Dougherty M.D. 05/11/2024 11:14 AM Pending Results Patient Have Any Pending Studies at Discharge: No Discharge Instructions Given to Patient (Per Discharging Provider) Samantha, You were admitted and treated for an acute COPD exacerbation. It was also noted that you need to use oxygen daily at this time. You were prescribed an extended prednisone taper to help with your breathing after discharge. You are also being discharged with 5 more days of the antibiotics Augmentin and doxycycline. You are also being prescribed a probiotic to take while on the antibiotics. Please continue with your oxygen while you ambulate and at nighttime. It will be weaned as tolerated. Please do not smoke while using oxygen. Nicotine patches were sent to your pharmacy to help you quit smoking per your request as well. Your glucose levels will need to be monitored while you are on the steroids. This can be done by your primary care provider. 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 Please do not hesitate to come back to the emergency room if your symptoms worsen or return. It was a pleasure taking care of you while you were here. Total Time Total Time Spent Total Time Spent (In Minutes): 60
[2024-05-15 13:30] LABS: Estimated Average Glucose 128 mg/dl; Hemoglobin A1C 6.1 % (4.5-5.6)
[2024-05-15] MEDS: OPTIRAY 320 100ml IV ONE (14:03)
[2024-05-15] MEDS: ONDANSETRON INJ 2 MG/ML 2 ML VIAL IV PRN (14:46)
[2024-05-15] MEDS: KETOROLAC TROMETHAMINE 15 MG/ML VIAL IV PRN (14:46)
--- NOTE | 2024-05-15 15:00 | CT Scan Report ---
CT OF THE ABDOMEN AND PELVIS WITH CONTRAST CLINICAL HISTORY: sudden intractable abd pain COMPARISON STUDY: CT of the abdomen and pelvis June 01, 2023. TECHNIQUE: Following IV administration of 94 mL of Optiray, axial images of the abdomen and pelvis we re obtained from the lung bases to the proximal femurs. Images were reviewed in the axial, sagittal, and coronal planes. IV contrast was administered without complication. Automated exposure control wa s utilized for the study. A dose lowering technique was utilized adhering to the principles of ALARA . CT DOSE: 2108.58 mGy.cm FINDINGS: There are secretions within the right lower lobe airways. There is a trace right pleural ef fusion. Subpleural right lung opacities favor atelectasis. No pneumatosis, free air or portal venous gas is present. The liver, spleen, adrenal glands, kidneys and pancreas are unremarkable. There is no biliary or pancreatic ductal dilatation. There is colonic diverticulosis. No evidence for acute dive rticulitis. There is no evidence for a bowel obstruction. Major vasculature is patent. There is no ly mphadenopathy. There are no fluid collections. No peripancreatic or pericholecystic infiltration is p resent. Postoperative findings consistent with ventral hernia repair with mesh are present. Apparent wall thickening of the ascending colon with minimal adjacent stranding is likely due to underdistenti on. IMPRESSION: 1. Mild wall thickening of the ascending colon with minimal adjacent stranding. The wall thickening i s likely due to underdistention however a nonspecific colitis could appear similar. 2. No bowel obstruction. Colonic diverticulosis without evidence for acute diverticulitis. 3. Subpleural right lower lobe opacities which favor atelectasis. ACT 112: Negative or not required by law. Electronically signed by: Aston Dougherty M.D. 05/15/2024 2:58 PM
[2024-05-15 15:12] LABS: Adenovirus PCR Not Detected (NotDetected); Bordetella parapertussis PCR Not Detected (NotDetected); Bordetella pertussis PCR Not Detected (NotDetected); Chlamydia pneumoniae PCR Not Detected (NotDetected); Coronavirus 229E PCR Not Detected (NotDetected); Coronavirus CoV-2 (COVID19)PCR Not Detected (NotDetected); Coronavirus HKU1 PCR Not Detected (NotDetected); Coronavirus NL63 PCR Not Detected (NotDetected); Coronavirus OC43PCR Not Detected (NotDetected); Human Metapneumovirus PCR Not Detected (NotDetected); Influenza A PCR Not Detected (NotDetected); Influenza B PCR Not Detected (NotDetected); Mycoplasma pneumoniae PCR Not Detected (NotDetected); Parainfluenza Virus 1 PCR Not Detected (NotDetected); Parainfluenza Virus 2 PCR Not Detected (NotDetected); Parainfluenza Virus 3 PCR Not Detected (NotDetected); Parainfluenza Virus 4 PCR Not Detected (NotDetected); Respiratory Syncytial VirusPCR Not Detected (NotDetected); Rhinovirus/Enterovirus PCR Not Detected (NotDetected)
--- NOTE | 2024-05-15 15:35 | CT Scan Report ---
CT head/brain wo con CLINICAL HISTORY: sudden intractable headache. TECHNIQUE: Multiple axial CT images of the head were obtained without contrast. Sagittal and coronal reconstructions were performed. A dose lowering technique was utilized adhering to the principles of ALARA. CT DOSE: 2108.58 mGy*cm COMPARISON: 10/20/2022 FINDINGS: There has been no significant interval change. There is no intra-axial or extra-axial fluid collection, hemorrhage, or mass. There is senescent atrophy and presumptive small vessel insufficien cy. There is no midline shift. There is no fluid in the visualized sinuses. There is no skull lesion identified. IMPRESSION: Stable exam with senescent changes. No acute intracranial findings. ACT 112: Negative or not required by law. The above report was generated using voice recognition software. It may contain grammatical, syntax o r spelling errors. Electronically signed by: Kimi Johnson M.D. 05/15/2024 3:34 PM
--- NOTE | 2024-05-15 16:29 | Hospitalist Progress Note ---
Date of Service May 15, 2024 Assessment & Plan (1) Acute hypoxemic respiratory failure: Plan: Patient is a 78-year-old female with past medical history significant for COPD, smoker, nocturnal hypoxia, CAD/CABG, history of atrial flutter, prediabetes, hypertension, depression and anxiety who presented with productive cough and shortness of breath x 1 week. Delusions Pt stating that she has a stalker and cannot be discharged, states she does not feel safe going home Per son Vincent, pt has this known hx but not currently on medications or undergoing treatment Psych consult placed, appreciate further recs for discharge. Acute on Chronic hypoxemic respiratory failure COPD Exacerbation History of obstructive sleep apnea Chronic tobacco use Pt presenting with SOB Negative respiratory biofire panel Chest x-ray: No pneumonia D-dimer elevated, CTA chest with no noted PE but did note possible aspiration, mucous plugging and concern for Pulm HTN. Doppler bilat lower extremities with no DVT. VBG noting pH 7.33, pCO2 70, HCO3 37 MRSA nares negative Blood Cx x2 sets NGTD sputum cx not able to be obtained Was on 3 L of O2 via cannula. At home, uses 2.5 L of O2 supplement only at nighttime Xopenex, Atrovent 4 times daily Hypertonic saline twice daily Mucinex 600 twice daily, incentive spirometry, flutter valve Was on IV solumedrol for 4 days, transitioned to po prednisone to complete an extended taper course given severity of symptoms on discharge Was on Cefepime and doxycycline-transitioned to po Augmentin and doxycycline to complete 10 days of treatment. Discharged with the same for an additional 5 days with a probiotic. 2 step completed on 05/14 noting need for 2L O2 with ambulation Outpatient pulmonary followup Nicotine patch as needed- pt requesting it on discharge. Encouraged to not smoke while on oxygen. PCP and pulmonary followup after discharge. Pulmonary HTN CTA chest was concerning for pulm HTN Echo with EF >70%, right ventricle normal, Grade 1 diastolic dysfunction. No suggestion of pulm HTN Mild troponin elevation History of CAD/CABG History of atrial flutter Troponin 19, repeat downtrending EKG sinus with PACs Echo as above: with EF > 70%, right ventricle normal, Grade 1 diastolic dysfunction. No suggestion of pulm HTN Mild troponin elevation likely secondary to demand ischemia No chest pain or other cardiac symptoms Not on aspirin, was started on aspirin 81 mg p.o. daily on admission Continued statin, BB, Imdur Echocardiogram obtained - LV wall motion is normal, LV is hyperdynamic. LVEF~70%, RV is normal in size. No significant valvular disease. Stable on discharge Pre-DM Pt with Hx of prediabetes Please monitor glucose levels while on extended prednisone taper after discharge repeat hgba1c pending on discharge PCP followup Hypertension Continue amlodipine plus lisinopril Also on coreg Depression, anxiety Continue home meds Diet: HH DVT prophylaxis: Lovenox CODE STATUS full code per patient Disposition: PT/OT recommending home with home PT, needs O2 for discharge Admission and Anticipated Discharge Date Admission Date: May 10, 2024 Subjective pt was seen many times during the day In the AM asking about going home Later stating that she had a headache and abdominal pain and was nauseous Later patient stating that she could not be discharged and could not go home because she does not feel safe at home. States she has a stalker. Discussed with son Vincent who does note that this is chronic for her and she has these known delusions. States that she has previously followed with psychiatry and that medication for treatment has been recommended but she could not afford it. Review of Systems Review of Systems: All systems reviewed & are unremarkable except as noted in Subjective Physical Exam Physical Exam: General: Alert, oriented. No acute distress HEENT: NC/AT, NC in nares CV: RRR Resp: Breath sounds decreased bilaterally,NC in nares Abdomen: Soft, nontender Extremities: No edema in lower extremities bilaterally. Results & Data Results & Data Vital Signs (Past 12 Hours) Vital Signs Temp Pulse Pulse Resp BP Pulse Ox O2 Del Method 05/15/24 16:08 36.6 C 78 20 165/98 H 91 Room Air 05/15/24 13:15 92 Room Air 05/15/24 12:39 36.7 C 80 14 183/98 H 93 Nasal Cannula 05/15/24 07:59 36.6 C 05/15/24 07:59 66 20 167/74 H 92 Nasal Cannula 05/15/24 07:30 Nasal Cannula 05/15/24 07:29 57 L 05/15/24 07:07 68 18 92 Nasal Cannula O2 Flow Rate 05/15/24 16:08 05/15/24 13:15 05/15/24 12:39 2 05/15/24 07:59 05/15/24 07:59 2 05/15/24 07:30 2 05/15/24 07:29 05/15/24 07:07 2
[2024-05-15] MEDS: SUMAtriptan succinate 50 MG TAB PO PRN (17:05)
[2024-05-16 07:24] VITALS: O2SAT 91
[2024-05-16 07:41] LABS: Hematocrit (blood only) 45.1 % (37.0-47.0); Hemoglobin 15.8 g/dl (12.0-16.0); Mean Corpuscular Hemoglobin 33.3 pg (25.0-34.0); Mean Corpuscular Volume 94.9 fL (80.0-100.0); Mean Platelet Volume 9.6 fL (9.4-12.4); Platelet Count 265 K/uL (130-400); RDW Coefficient of Variation 13.9 % (11.5-14.5); RDW Standard Deviation 48.5 fL (36.4-46.3); Red Blood Count 4.75 M/uL (4.20-5.40); White Blood Count 8.04 K/ul (4.8-10.8)
[2024-05-16 07:57] LABS: BUN Creatinine Ratio 28.8 (10-20); Calcium 8.3 mg/dl (8.6-10.3); Creatinine Clr Calc Pharmacy 95.5 ml/min; Magnesium 2.2 mg/dl (1.7-2.4); Phosphorus 3.7 mg/dl (2.5-4.9); Potassium 3.8 mmol/L (3.5-5.1)
--- NOTE | 2024-05-16 08:13 | Discharge Summary ---
Discharge Summary Date of Service May 16, 2024 Principal Dx & Hospital Course #1 = Principal Diagnosis (1) Acute hypoxemic respiratory failure: Plan Patient is a 78-year-old female with past medical history significant for COPD, smoker, nocturnal hypoxia, CAD/CABG, history of atrial flutter, prediabetes, hypertension, depression and anxiety who presented with productive cough and shortness of breath x 1 week. Acute on Chronic hypoxemic respiratory failure COPD Exacerbation History of obstructive sleep apnea Chronic tobacco use Pt presenting with SOB Negative respiratory biofire panel Chest x-ray: No pneumonia D-dimer elevated, CTA chest with no noted PE but did note possible aspiration, mucous plugging and concern for Pulm HTN. Doppler bilat lower extremities with no DVT. VBG noting pH 7.33, pCO2 70, HCO3 37 MRSA nares negative Blood Cx x2 sets NGTD sputum cx not able to be obtained Was on 3 L of O2 via cannula. At home, uses 2.5 L of O2 supplement only at nighttime Xopenex, Atrovent 4 times daily Hypertonic saline twice daily Mucinex 600 twice daily, incentive spirometry, flutter valve Was on IV solumedrol for 4 days, transitioned to po prednisone to complete an extended taper course given severity of symptoms on discharge Was on Cefepime and doxycycline-transitioned to po Augmentin and doxycycline to complete 10 days of treatment. Discharged with the same for an additional 5 days with a probiotic. 2 step completed on 05/14 noting need for 2L O2 with ambulation Outpatient pulmonary followup Nicotine patch as needed- pt requesting it on discharge. Encouraged to not smoke while on oxygen. PCP and pulmonary followup after discharge. Pulmonary HTN CTA chest was concerning for pulm HTN Echo with EF >70%, right ventricle normal, Grade 1 diastolic dysfunction. No suggestion of pulm HTN Mild troponin elevation History of CAD/CABG History of atrial flutter Troponin 19, repeat downtrending EKG sinus with PACs Echo as above: with EF > 70%, right ventricle normal, Grade 1 diastolic dysfunction. No suggestion of pulm HTN Mild troponin elevation likely secondary to demand ischemia No chest pain or other cardiac symptoms Not on aspirin, was started on aspirin 81 mg p.o. daily on admission Continued statin, BB, Imdur Echocardiogram obtained - LV wall motion is normal, LV is hyperdynamic. LVEF~70%, RV is normal in size. No significant valvular disease. Stable on discharge Pre-DM Pt with Hx of prediabetes Please monitor glucose levels while on extended prednisone taper after discharge repeat [id number] pending on discharge PCP followup Hypertension Continue amlodipine plus lisinopril Also on coreg Depression, anxiety Continue home meds Delusions Pt stating on 05/15/24 that she has a stalker and cannot be discharged, states she does not feel safe going home Per son Vincent, pt has this known hx but not currently on medications or undergoing treatment Psych consult placed, appreciate further recs for discharge. Pt was seen by the psych liaison who noted the following: "Rounded on patient for initial assessment. Our service was consulted for paranoia/psychosis/delusions. It was reported that she was to be discharged today, however she voiced concerns over a "stalker" being present when she ret urns home. When asked by this liaison if she felt safe at home, she stated "yes, I wish there more young people to talk to there." She described her apartment as mainly elderly tenants and safe. She declined signing an JAYLA for her son Vincent, states "He has his own life." She expressed feeling ready for discharge tomorrow. She laughed and stated "I like it here though because people wait on me." She denies any SI, denies any current depressive symptoms. She reports her son is supportive and is close by if needed. She denies any acute needs at this time. RN in charge of care made aware of conversation/visit...." Pt discharged on 05/16/24 after noting she felt safe at home. Migraine Headaches Head CT unremarkable PRN Imitrex PCP followup Abdominal pain CT abd/pelvis with possible colitis, though less likely Pt otherwise asymptomatic On Augmentin with probiotic as noted above PCP followup Notes For Next Care Provider Please monitor glucose levels while on extended prednisone taper Pulmonary follow-up recommended Encourage smoking cessation Wean oxygen as tolerated Medication Changes From Visit Augmentin 875 twice daily for an additional 5 days Doxycycline 5 mg twice daily for an additional 5 days Probiotic Extended prednisone taper Nicotine patch Admission HPI Per Admitting Provider Patient is a 78-year-old female with history of COPD, smoker, nocturnal hypoxia, CAD/CABG, history of atrial flutter, prediabetes, hypertension, depression and anxiety, presenting with productive cough and shortness of breath x 1 week. Since middle february, patient has had multiple episodes of COPD exacerbations requiring prednisone taper, doxycycline and azithromycin. Her last episode was middle of March, for which she required another round of prednisone and Z-Brian. As per patient, for the past week, she has been having progressive cough associated with yellow thick sputum, shortness of breath, and some occasional fever/chills. She also reports some sore throat. She denies having chest pain, palpitations, nausea or vomiting, abdominal pain, other symptoms. Today, she presented to the ER with progressive shortness of breath with productive cough. She was found to be hypoxic in the 80s upon arrival to the ER. She was placed on 4 L of oxygen with improvement of O2 sats. She was also given albuterol and Solu-Medrol. Respiratory panel: Negative Chest x-ray: No acute infiltrates, effusion She had persistent hypoxia and wheezing prompting hospitalist consultation. On exam, patient seen resting in bed, on 3 L of O2 via nasal cannula, comfortable, not in distress, speaking in sentences with no effort. She states she feels somewhat better since admission. No active shortness of breath, chest pain, dizziness, etc. Admission Exam Per Admitting Provider General- oriented x 3, not in distress, speaks in sentences with no effort or accessory muscle use Head- atraumatic Eyes- PERRL, EOMI, anicteric ENT- oropharynx clear Neck- supple, no JVD, no adenopathy, no thyromegaly; carotids +2/2, no bruits appreciated Lungs- Positive diffuse scattered crackles bilaterally with intermittent wheezing, good air entry bilaterally Heart- normal rate, regular rhythm; no murmur, no gallop, no rub appreciated Abdomen- normal bowel sounds, nondistended, soft, nontender, no masses or hepatosplenomegaly Extremities- Mild pretibial edema, no calf tenderness; peripheral pulses intact Neuro- alert, oriented x 3; CN 2-12 grossly intact; motor 5/5 bilaterally;sensation 100% on all extremities; no other gross focal neurologic deficits Skin- warm & dry Discharge Exam General: Alert, oriented. No acute distress HEENT: NC/AT, NC in nares CV: RRR Resp: Breath sounds decreased bilaterally,NC in nares Abdomen: Soft, nontender Extremities: No edema in lower extremities bilaterally. Updated Medication List Medication Instructions Recorded Confirmed Type ascorbic acid (vitamin C) 1,000 mg 500 mg PO QAM 05/10/18 05/10/24 History tablet (Vitamin C) aspirin 81 mg tablet,delayed 81 mg PO UD 05/10/18 05/10/24 History release calcium 600 mg (as carbonate)-vit 1 tab PO DAILY 05/10/18 05/10/24 History D3 20 mcg (800 unit) chewable tablet (Caltrate plus D) omega [id number] oil 1,000 mg 1 cap PO HS 05/10/18 05/10/24 History (120 mg-180 mg) capsule (Fish Oil) paroxetine HCl 30 mg tablet 60 mg PO DAILY 05/10/18 05/10/24 History albuterol sulfate 90 mcg/actuation 2 puff inhalation Q6H PRN SHORT OF 01/14/19 05/10/24 History aerosol inhaler BREATH cyanocobalamin (vitamin B-12) 1,000 mcg PO HS 01/14/19 05/10/24 History 1,000 mcg tablet nitroglycerin 0.4 mg sublingual 0.4 mg sublingual USEASDIRECTD PRN 01/14/19 05/10/24 History tablet Chest Pain sumatriptan succinate 100 mg tablet 100 mg PO UD PRN Migraine Headache 01/14/19 05/10/24 History rosuvastatin 40 mg tablet 40 mg PO HS 10/10/19 05/10/24 History umeclidinium 62.5 mcg/actuation 1 inh inhalation DAILY 02/10/20 05/10/24 History blister powder for inhalation (Incruse Ellipta) alprazolam 1 mg tablet 1 mg PO HS #10 tabs 02/18/20 05/10/24 Rx carvedilol 3.125 mg tablet 3.125 mg PO BID #60 tabs 11/14/21 05/10/24 Rx isosorbide mononitrate 60 mg 60 mg PO QAM #30 tabs 11/14/21 05/10/24 Rx tablet,extended release 24 hr lisinopril 40 mg tablet 40 mg PO QAM 10/20/22 05/10/24 History albuterol sulfate 2.5 mg/3 mL 2.5 mg inhalation DIRECTED PRN 03/18/23 05/10/24 History (0.083 %) solution for nebulization Shortness Of Breath Or Wheezing carboxymethylcellulose sodium 1 % 1 drp OPB TID PRN as directed 03/18/23 05/10/24 History eye drops (Artificial Tears (carboxymethylcellulose)) ipratropium 0.5 mg-albuterol 3 mg 3 ml NEB QIDR PRN NEEDED PER [facility] 03/18/23 05/10/24 History (2.5 mg base)/3 mL nebulization soln prednisone 10 mg tablet 0 mg PO DIRECTED PRN RESCUE KIT 03/18/23 05/10/24 History amlodipine 5 mg tablet 5 mg PO QAM 06/01/23 05/10/24 History fluticasone furoate 100 1 inh inhalation QAM 05/10/24 05/10/24 History mcg-vilanterol 25 mcg/dose inhalation powder (Breo Ellipta) hydroxyzine HCl 25 mg tablet 25 mg PO TID PRN Anxiety 05/10/24 05/10/24 History nicotine 7 mg/24 hr daily 1 patch transdermal QAM #14 ea 05/14/24 Rx transdermal patch Saccharomyces boulardii 250 mg 250 mg PO BID #30 caps 05/15/24 Rx capsule (Florastor) amoxicillin 875 mg-potassium 1 tab PO BIDM #10 tabs 05/15/24 Rx clavulanate 125 mg tablet doxycycline hyclate 100 mg capsule 100 mg PO BID #10 caps 05/15/24 Rx prednisone 5 mg tablet See Rx Instructions PO .COMPLEX 05/15/24 Rx #108 tabs Hospital Stay Data Consultations 05/10/24 14:46 ED Decision to Admit Stat 05/15/24 16:23 Consult Psychiatry Routine Diagnostic Imagining Performed 05/10/24 20:08 CT angio chest PE protocol Stat 05/11/24 00:32 US venous doppler LE BI Routine 05/15/24 13:[address] [CT head/brain wo con] Urgent 05/15/24 13:06 CT Abd and Pelvis [CT abd pelvis IV con only] Urgent Pending Results Patient Have Any Pending Studies at Discharge: No Discharge Instructions Given to Patient (Per Discharging Provider) Samantha, You were admitted and treated for an acute COPD exacerbation. It was also noted that you need to use oxygen daily at this time. You were prescribed an extended prednisone taper to help with your breathing after discharge. You are also being discharged with 5 more days of the antibiotics Augmentin and doxycycline. You are also being prescribed a probiotic to take while on the antibiotics. Please continue with your oxygen while you ambulate and at nighttime. It will be weaned as tolerated. Please do not smoke while using oxygen. Nicotine patches were sent to your pharmacy to help you quit smoking per your request as well. Your glucose levels will need to be monitored while you are on the steroids. This can be done by your primary care provider. Please keep follow-up with your primary care provider and tag meter operator after discharge. Please do not hesitate to come back to the emergency room if your symptoms worsen or return. It was a pleasure taking care of you while you were here. Total Time Total Time Spent Total Time Spent (In Minutes): 65
[2024-05-16 08:27] VITALS: BP 153/86; PULSE 72; RESP 18; TEMP 98.1
== END 2024-05-16 10:02 | disposition home health service (06) | DRG 189 ==
LOC: ED 11:39 → SUATTDRO 15:11 → EDINP 15:11 → 2E 23:08

== ENCOUNTER 2024-12-12 05:20 | Inpatient (IN) ==
--- NOTE | 2024-12-12 06:38 | Emergency Department Note ---
Impression & Plan Weakness, Fall, Flu-like symptoms, Acute dehydration, Acute UTI ED Provider Note NAME: PACO JOHNSON AGE: 78 SEX: F : 1945 ARRIVES VIA: Ambulance INFORMANT: [Patient][ems] ED PROVIDER(S): [Stevo Brennan MD] CHIEF COMPLAINT: Fall HISTORY OF PRESENT ILLNESS: The patient is a 78-year-old female who lives alone. She states that around a week ago, she received a COVID-vaccine and since, has not felt well. She has been tired with chills, she has been sleeping all the time and has been weaker. Several hours ago, she turned suddenly and fell. She states that she fell because she has a bad right ankle and right knee. She was unable to get up on her own. She had to crawl to a phone to call 911. She was on the ground, as per the EMS crew, for about 2 hours. Once she was helped up, she was able to ambulate to the stretcher. The patient currently complains of some lower back pain, right hip and right knee pain as well as ongoing right ankle pain. She denies chest pain. She is not short of breath. There has been no cough. No abdominal pain. No nausea or vomiting, although, she does believe that she has not been drinking enough fluid. Of note, she is not on blood thinning agents. PMHx/PSHx/Social Hx: See Below PHYSICAL EXAM: Primary Survey Airway: Intact Breathing: Breath sounds equal bilaterally. No respiratory distress Circulation: Skin warm, capillary refill less than 2 seconds Disability: Pupils equal and reactive to light Motor Function: Moves all extremities. Sensory: No deficits Secondary Survey GEN: Well developed and well-nourished, mucous membranes dry HEAD: Normocephalic, atraumatic EYES: Pupils round and reactive to light, conjunctiva clear, extraocular movements intact ENT: No fluid in external acoustic canals, nares patent, oropharynx clear NECK: Midline trachea, no cervical spine step-off HEART: No murmurs, rhythm seems regular with an occasional extra beat. LUNGS: Clear to auscultation bilaterally CHEST: Chest wall non-tender, no bruising/deformity ABD: No contusions, soft, non-tender, no distention PELVIS: Stable to rock BACK: No step offs or deformities, tender diffusely about the lower lumbar spine, no contusion seen. EXT: Moving all extremities well, no gross deformities. There is pain to palpate about the right ankle. There is pain to move the right knee, no knee joint effusion. No right lower extremity shortening or deformity. NEURO: No focal motor deficits, no sensory deficits DIFFERENTIAL DIAGNOSIS: Fracture, sprain, strain, spinal injury, intracranial injury, UTI, vaccine reaction, dehydration, electrolyte imbalance, among others. EMERGENCY DEPARTMENT PROCEDURES: C-spine was clinically cleared at 0915, once the CT imaging returned. MEDICAL DECISION MAKING: There is no leukocytosis or concerning anemia. There is a normal platelet count. No renal failure or significant electrolyte abnormality. Lactic acid level is not elevated making severe sepsis less likely. There is no concerning liver enzyme elevation. Total CK was not elevated making rhabdomyolysis unlikely. The patient appeared to be in a euthyroid state. ECG showed a sinus rhythm, no ST elevation. Cardiac enzyme testing x 1 was not consistent with acute cardiac injury. Urinalysis showed dehydration as well as infection. COVID, influenza and RSV test were negative. Chest x-ray did not show pneumonia or rib injury. Brain CT showed no acute bleed or mass effect. Lumbar spine CT showed no acute fracture. Right knee and right ankle films were performed, there were no acute fractures. Right hip film does not show fracture or dislocation. No obvious pelvic fracture. The patient received IV saline for hydration. She was given IV ceftriaxone for her UTI. She received IV Tylenol for pain. The patient presents with weakness and some flulike symptoms. She has fallen. Luckily, no serious traumatic injury by workup. I suspect the patient has a UTI. This caused her weakness, this caused her flulike symptoms. It likely contributed to her fall. The patient does live alone, I do not think she is safe with discharge home. I did speak with the patient about all her findings. Case management was involved in the case. The on-call hospitalist was consulted. Prior/Outside records/notes reviewed: Today's EMS notes describing her presentation and transport to this hospital. ECG per my interpretation: Indication was fall. The ECG shows a sinus rhythm with some sinus arrhythmia. The rate is 71. There is diffuse nonspecific ST change. There is no ST elevation, no PVCs. The QTc is 404. Continuous Cardiac Monitoring per my interpretation: An order was placed for continuous cardiac monitoring. The monitor shows a rate of 75 with sinus rhythm with some sinus arrhythmia.. Imaging/x-ray results per my interpretation: A chest x-ray was done, there was some chronic change but no focal pneumonia, no obvious rib injury or lung injury. Right ankle film shows the metal plate to be in proper position, no fracture. Right knee film does not show fracture or dislocation, there is no joint effusion. Right hip and pelvis films were negative for fracture or dislocation. Chronic Medical/Social conditions affecting care: Advanced age, lives alone. Care/Management discussed with: Case management and the on-call hospitalist. Level of care consideration(s): After review of the information above and other included data: --I believe the patient requires escalation of care to admission DISPOSITION: Admission Past Med/Surg History Problem List Acute UTI (Acute) Acute dehydration (Acute) Flu-like symptoms (Acute) Fall (Acute) Weakness (Acute) Accident due to mechanical fall without injury UTI (urinary tract infection) Acute electrocardiogram changes (Acute) Elevated troponin (Acute) Cough (Acute) SOB (shortness of breath) (Acute) COPD exacerbation (Acute) Hypoxia (Acute) Acute hypoxemic respiratory failure Status migrainosus without intractable migraine Acute intractable headache (Acute) Pneumonia Prediabetes Chest pain at rest Dyslipidemia, goal LDL below 70 Hypertensive urgency Abnormal EKG ASCVD (arteriosclerotic cardiovascular disease) Acute exacerbation of chronic obstructive pulmonary disease (COPD) (Acute) Acute electrocardiogram changes (Acute) DVT prophylaxis Abnormal CT scan, stomach Pneumonia due to COVID-19 virus Pneumonia (Acute) CAD (coronary artery disease) Nonobstructive by 2018 cardiac cath. NSTEMI ruled 2/2 coronary spasm. Hypoxia (Acute) Synovial cyst of right popliteal space Anxiety History of discectomy Acute respiratory failure with hypoxia COPD exacerbation Pneumonia Depression . Generalized anxiety disorder Hypertension COPD (chronic obstructive pulmonary disease) 2.5 LPM VIA N/C ONLY AT HS. Advair daily, rarely using rescue inhaler, ~ 3x per month Continues to smoke 1ppd Atrial flutter s/p ablation 05/2017. Follows with [facility]. History of breast biopsy History of laparoscopy 2/2 endometriosis Medical History Migraines Acute exacerbation of chronic obstructive pulmonary disease (COPD) COVID-19 Tear of lateral meniscus of right knee Tear of medial meniscus of right knee Degenerative disc disease Osteoarthritis Anxiety and depression Sleep apnea "MILD" ONLY WEARS O2 AT 2.5L AT HS Myocardial Infarction NSTEMI 04/2018 [facility] Hyperlipidemia On home oxygen therapy 2.5L AT HS NSTEMI (non-ST elevated myocardial infarction) Surgical History History of section X 2 History of colonoscopy History of dilatation and curettage History of open reduction and internal fixation (ORIF) procedure RT ANKLE History of discectomy LUMBAR History of tooth extraction History of eye surgery RT EYE (CAN'T REMEMBER WHAT FOR) History of cardiac cath 04/2018 for NSTEMI, Nonobstructive moderate proximal to mid LAD disease. History of cardiac radiofrequency ablation 2018 Family History Father Hypertension Brother Diabetes Depression Family history of diabetes mellitus Sister Depression Family history of diabetes mellitus Social History Smoking Status: Current every day smoker Tobacco Type: Cigarettes Cigarettes Per Day: One pack a day; Second Hand Exposure: No; Do You Dip or Chew Tobacco: No; Hx Alcohol Use: Yes Alcohol type: wine Hx Substance Use: No Preferred Language: Citizen Of [place] Communication Ability: Effective Communication Ability Comment: Inhibited only by SOB. Visual Impairment: No Limitations Hearing Ability: Normal Novelties Sales Representative Required: No Beliefs That Will Affect Care: None marital status: Current Living Situation: Alone and Other Current Living Situation Comment: Apartment Complex at [facility] in [place] How many Children do You have: 2 Feels Safe at Home: Yes Assistive Devices: Cane and Oxygen - at Night Allergies Allergies Allergy/AdvReac Type Severity Reaction Status Date / Time No Known Allergies Allergy Verified 12/12/24 11:39 Home Meds Home Medications Medication Instructions Recorded Confirmed ascorbic acid (vitamin C) 1,000 mg 500 mg PO QAM 05/10/18 12/12/24 tablet (Vitamin C) aspirin 81 mg tablet,delayed 81 mg PO QAM 05/10/18 12/12/24 release calcium 600 mg (as carbonate)-vit 1 tab PO DAILY 05/10/18 12/12/24 D3 20 mcg (800 unit) chewable tablet (Caltrate plus D) omega 2-guc-ncp-fish oil 1,000 mg 1 cap PO HS 05/10/18 12/12/24 (120 mg-180 mg) capsule (Fish Oil) paroxetine HCl 30 mg tablet 60 mg PO DAILY 05/10/18 12/12/24 albuterol sulfate 90 mcg/actuation 2 puff inhalation Q6H PRN SHORT OF 01/14/19 12/12/24 aerosol inhaler BREATH cyanocobalamin (vitamin B-12) 1,000 mcg PO HS 01/14/19 12/12/24 1,000 mcg tablet nitroglycerin 0.4 mg sublingual 0.4 mg sublingual DIRECTED PRN 01/14/19 12/12/24 tablet Chest Pain sumatriptan succinate 100 mg tablet 100 mg PO UD PRN Migraine Headache 01/14/19 12/12/24 rosuvastatin 40 mg tablet 40 mg PO HS 10/10/19 12/12/24 umeclidinium 62.5 mcg/actuation 1 inh inhalation DAILY 02/10/20 12/12/24 blister powder for inhalation (Incruse Ellipta) carboxymethylcellulose sodium 1 % 1 drp OPB TID PRN Dry Eye(S) 03/18/23 12/12/24 eye drops (Artificial Tears (carboxymethylcellulose)) amlodipine 5 mg tablet 5 mg PO QAM 06/01/23 12/12/24 fluticasone furoate 100 1 inh inhalation QAM 05/10/24 12/12/24 mcg-vilanterol 25 mcg/dose inhalation powder (Breo Ellipta) hydroxyzine HCl 25 mg tablet 25 mg PO TID PRN Anxiety 05/10/24 12/12/24 Saccharomyces boulardii 250 mg 250 mg PO BID 12/12/24 12/12/24 capsule (Florastor) trazodone 50 mg tablet 50 mg PO DIRECTED 12/12/24 12/12/24 Previous Rx's Medication Instructions Recorded alprazolam 1 mg tablet 1 mg PO HS #10 tabs 02/18/20 carvedilol 3.125 mg tablet 3.125 mg PO BID #60 tabs 11/14/21 isosorbide mononitrate 60 mg 60 mg PO QAM #30 tabs 08/22/22 tablet,extended release 24 hr nicotine 7 mg/24 hr daily 1 patch transdermal QAM #14 ea 05/14/24 transdermal patch Results & Data (ED) Vital Signs Vital Signs - 24 hr 12/12/24 05:23 12/12/24 05:23 12/12/24 05:35 Temperature 37 C Temperature Source Oral Pulse Rate 72 75 Pulse Rate [Apical] 72 Pulse Rate from SpO2 Sensor Pulse Rhythm [Apical] Pulse Strength [Apical] Respiratory Rate 15 15 Respiratory Effort / Characteristics Non-Labored Spontaneous Non-Labored Spontaneous Respiratory Depth Normal Normal Respiratory Pattern Regular Regular Blood Pressure 142/77 H Blood Pressure [Right Arm] 142/77 H Blood Pressure Mean 98 Blood Pressure Mean [Right Arm] 98 Blood Pressure Position [Right Arm] Pulse Oximetry 91 91 Oxygen Delivery Method Room Air Room Air Sepsis Recent Fever Within 48 Hours No Sepsis New/Unexplained Change in Mental Status No Sepsis Action Taken by Nursing No Action Required 12/12/24 06:47 12/12/24 08:00 12/12/24 08:30 Temperature Temperature Source Pulse Rate 64 Pulse Rate [Apical] 70 Pulse Rate from SpO2 Sensor Pulse Rhythm [Apical] Regular Pulse Strength [Apical] Normal Respiratory Rate 16 15 Respiratory Effort / Characteristics Non-Labored Spontaneous Respiratory Depth Normal Respiratory Pattern Regular Blood Pressure 154/91 H Blood Pressure [Right Arm] 150/76 H Blood Pressure Mean 102 Blood Pressure Mean [Right Arm] 100 Blood Pressure Position [Right Arm] Lying Pulse Oximetry 89 L 95 Oxygen Delivery Method Room Air Room Air Room Air Sepsis Recent Fever Within 48 Hours Sepsis New/Unexplained Change in Mental Status Sepsis Action Taken by Nursing 12/12/24 09:00 12/12/24 09:25 12/12/24 10:00 Temperature Temperature Source Pulse Rate 66 71 Pulse Rate [Apical] 70 Pulse Rate from SpO2 Sensor 66 Pulse Rhythm [Apical] Regular Pulse Strength [Apical] Normal Respiratory Rate 14 18 Respiratory Effort / Characteristics Non-Labored Spontaneous Respiratory Depth Normal Respiratory Pattern Regular Blood Pressure 138/68 Blood Pressure [Right Arm] 155/80 H Blood Pressure Mean 91 Blood Pressure Mean [Right Arm] 105 Blood Pressure Position [Right Arm] Lying Pulse Oximetry 97 94 Oxygen Delivery Method Room Air Room Air Sepsis Recent Fever Within 48 Hours Sepsis New/Unexplained Change in Mental Status Sepsis Action Taken by Nursing 12/12/24 11:00 Temperature Temperature Source Pulse Rate Pulse Rate [Apical] 67 Pulse Rate from SpO2 Sensor Pulse Rhythm [Apical] Pulse Strength [Apical] Respiratory Rate 18 Respiratory Effort / Characteristics Non-Labored Spontaneous Respiratory Depth Normal Respiratory Pattern Blood Pressure Blood Pressure [Right Arm] 143/89 H Blood Pressure Mean Blood Pressure Mean [Right Arm] 107 Blood Pressure Position [Right Arm] Pulse Oximetry 97 Oxygen Delivery Method Room Air Sepsis Recent Fever Within 48 Hours Sepsis New/Unexplained Change in Mental Status Sepsis Action Taken by [facility] Medications Current Medication List: was personally reviewed by me Laboratory Data Attestation: I reviewed the patient's lab results. 12/12/24 06:34 12/12/24 06:34 Lab Results 12/12/24 12/12/24 12/12/24 Range/Units 06:34 06:39 06:57 WBC 8.74 (4.8-10.8) K/ul RBC 4.32 (4.20-5.40) M/uL Hgb 13.9 (12.0-16.0) g/dl Hct 41.7 (37.0-47.0) % MCV 96.5 (80.0-100.0) fL MCH 32.2 (25.0-34.0) pg MCHC 33.3 (32.0-36.0) g/dL RDW Std Deviation 51.7 H (36.4-46.3) fL RDW Coeff of [place] 14.4 (11.5-14.5) % Plt Count 218 (130-400) K/uL MPV 9.5 (9.4-12.4) fL Immature Gran % (Auto) 0.1 % Neut % (Auto) 53.9 % Lymph % (Auto) 25.6 % [place] % (Auto) 8.4 % Eos % (Auto) 11.7 % Baso % (Auto) 0.3 % Neut # (Auto) 4.71 (1.40-6.50) K/uL Lymph # (Auto) 2.24 (1.20-3.40) K/uL [place] # (Auto) 0.73 H (0.11-0.59) K/uL Eos # (Auto) 1.02 H (0.00-0.50) K/uL Baso # (Auto) 0.03 (0.00-0.20) K/uL Immature Gran # (Auto) 0.01 (0.01-0.20) K/uL Sodium 144 (136-145) mmol/L Potassium 3.8 (3.5-5.1) mmol/L Chloride 107 (98-107) mmol/L Carbon Dioxide 30 (21-32) mmol/L Anion Gap 7 (3-11) BUN 18 (6-23) mg/dl Creatinine 0.76 (0.6-1.2) mg/dl Est Cr Clr Drug Dosing 75.6 ml/min eGFR 80.16 BUN/Creatinine Ratio 23.7 H (10-20) Glucose 108 H (70-99(Fasting)) mg/dl Lactate 1.0 (0.4-2.0) mmol/L Calcium 9.1 (8.6-10.3) mg/dl Magnesium 2.2 (1.7-2.4) mg/dl Total Bilirubin 0.5 (0.2-1.0) mg/dl AST 31 (13-39) U/L ALT 30 (7-52) U/L Alkaline Phosphatase 57 (34-104) U/L Total Creatine Kinase 135 (26-192) U/L Troponin I High Sens 10.5 (0-14) pg/ml Total Protein 6.1 (6.0-8.3) gm/dl Albumin 3.8 (3.4-5.0) gm/dl Globulin 2.3 L (2.5-4.0) gm/dl Albumin/Globulin Ratio 1.7 (0.9-2) TSH 2.500 (0.300-4.500) uIu/ml Urine Color Yellow Urine Appearance Clear (Clear) Urine pH 5.5 (4.5-7.5) Ur Specific [place] 1.024 (1.000-1.030) Urine Protein Negative (Negative) Urine Glucose (UA) Negative (Negative) Urine Ketones Trace H (Negative) Urine Blood Negative (Negative) Urine Nitrite Negative (Negative) Urine Bilirubin Negative (Negative) Urine Urobilinogen Negative (Negative) Ur Leukocyte Esterase 2+ H (Negative) Urine WBC (Auto) 11-20 H (0-5) /hpf Urine RBC (Auto) 3-5 H (0-2) /hpf U Hyaline Cast (Auto) 3-5 H (0-2) /lpf U Epithel Cells (Auto) 0-2 (0-2) /hpf Urine Bacteria (Auto) None Seen (None Seen) Calcium Oxalate Crystal Present A (None Prsent) Urine Mucus Present A (None Prsent) Urine Comment SARS-CoV-2 (PCR) NEGATIVE (Negative) Influenza Type A (PCR) Negative (Neg) Influenza Type B (PCR) Negative (Neg) RSV (RT-PCR) Negative (Neg) Administered Medications Acetaminophen (Acetaminophen 325 Mg Tab) 650 mg PO Q4H PRN PRN Reason: Pain or Fever Stop: 01/11/25 14:52 Last Admin: 12/12/24 15:23 Dose: 650 mg Documented By: ANA Albuterol (Albuterol Hfa 8 Gm Inhaler) 2 puffs INH Q6H PRN PRN Reason: SHORT OF BREATH Stop: 01/11/25 12:33 Last Admin: 12/12/24 13:12 Dose: 2 puffs Documented By: ANA Enoxaparin Sodium (Enoxaparin Inj 40 Mg/0.4 Ml Syr) 40 mg SQ Q24H HUSSEIN Stop: 01/11/25 15:29 Last Admin: 12/12/24 15:26 Dose: 40 mg Documented By: ANA Fluticasone/Vilanterol (Fluticasone/Vilanterol 100/25mcg 14 Puffs/Inhaler) 1 puffs INH QAM HUSSEIN Stop: 01/11/25 12:44 Last Admin: 12/12/24 13:33 Dose: 1 puffs Documented By: ANA Sodium Chloride (Nss) 1,000 mls @ 100 mls/hr IV .Q10H HUSSEIN Stop: 12/13/24 10:52 Last Admin: 12/12/24 15:27 Dose: 100 mls/hr Documented By: ANA Nicotine (Nicotine 14 Mg/24 Hr Patch) 1 patch TD QAM HUSSEIN Stop: 01/11/25 11:59 Last Admin: 12/12/24 12:17 Dose: 1 patch Documented By: ANA Umeclidinium [place] (Umeclidinium [place] 62.5mcg/Blister 7 Puffs/Inhaler) 1 puffs INH DAILY HUSSEIN Stop: 01/11/25 12:44 Last Admin: 12/12/24 13:32 Dose: 1 puffs Documented By: ANA Discontinued Medications Aspirin (Aspirin 81 Mg Ectab) 81 mg PO NOW STA Stop: 12/12/24 12:44 Last Admin: 12/12/24 13:09 Dose: 81 mg Documented By: ANA Bupropion HCl (Bupropion Xl 300 Mg Tabcr) 300 mg PO NOW STA Stop: 12/12/24 12:46 Last Admin: 12/12/24 13:11 Dose: 300 mg Documented By: ANA Carvedilol (Carvedilol 3.125 Mg Tab) 3.125 mg PO NOW STA Stop: 12/12/24 12:44 Last Admin: 12/12/24 13:09 Dose: 3.125 mg Documented By: ANA Sodium Chloride (Nss) 1,000 mls @ 999 mls/hr IV .Q1H1M HUSSEIN Stop: 12/12/24 07:15 Last Infusion: 12/12/24 08:14 Dose: Infused Documented By: sherice Admin: 12/12/24 06:52 Dose: 999 mls/hr Documented By: Acetaminophen (Ofirmev) 1,000 mg in 100 mls @ 400 mls/hr IV NOW STA Stop: 12/12/24 06:26 Last Infusion: 12/12/24 08:13 Dose: Infused Documented By: sherice Admin: 12/12/24 06:52 Dose: 400 mls/hr Documented By: Ceftriaxone Sodium (Rocephin) 2,000 mg in 50 mls @ 100 mls/hr IV NOW STA Stop: 12/12/24 08:30 Last Infusion: 12/12/24 11:17 Dose: Infused Documented By: Admin: 12/12/24 08:28 Dose: 100 mls/hr Documented By: sherice Ioversol (Optiray 320 125ml) 120 ml IV ONCE ONE Stop: 12/12/24 13:46 Last Admin: 12/12/24 13:46 Dose: 120 ml Documented By: TAMEKA Isosorbide Mononitrate (Isosorbide [place] Extended Rel 60 Mg Tabcr) 60 mg PO NOW STA Stop: 12/12/24 12:44 Last Admin: 12/12/24 13:12 Dose: 60 mg Documented By: ANA Lisinopril (Lisinopril 40 Mg Tab) 40 mg PO NOW STA Stop: 12/12/24 12:46 Last Admin: 12/12/24 13:10 Dose: 40 mg Documented By: ANA Paroxetine HCl (Paroxetine Hcl 20 Mg Tab) 60 mg PO NOW STA Stop: 12/12/24 12:46 Last Admin: 12/12/24 13:14 Dose: 60 mg Documented By: ANA Imaging Data Radiologist's Impression: Ankle X-Ray 12/12/24 06:10 EXAM: XR ankle RT min 3V routine CLINICAL HISTORY: fall TECHNIQUE: X-ray images of the right ankle were obtained in anteroposterior (AP), lateral, and mortise projections. COMPARISON: 10:24:26 SCALE TECHNICIAN . FINDINGS: Bone Structure: Postoperative status with fixation screw endplates are seen in distal fibula. Rest of bony structure appears unremarkable. Joint Spaces: Joint spaces are normal. No evidence of joint effusion or subluxation. Soft Tissues: Soft tissues appear normal and unremarkable. No soft tissue swelling, calcifications, or foreign bodies noted. Additional Findings: No signs of osteoarthritis, bone spurs, lytic or sclerotic lesions. IMPRESSION: Postoperative status with fixation screw endplates are seen in distal fibula.-stable. No other abnormality seen. No other new interval abnormality since prior study. Disclaimer: A subtle bone abnormality or fracture may not be readily apparent on X-rays, thus clinical correlation and further imaging including follow-up CT, MRI, or follow-up X-rays are advised as needed. Electronically signed by Masoud Wallace 12-12-2024 08:[address] 12/12/24 06:10 CT SCAN OF THE CERVICAL SPINE CLINICAL HISTORY: Fall. COMPARISON STUDY: Cervical spine CT February 03, 2020. TECHNIQUE: CT scan of the cervical spine is performed from the skull base to the upper thoracic spine. Images are reviewed in the axial, sagittal, and coronal planes. IV contrast was not administered for this examination. A dose lowering technique was utilized adhering to the principles of ALARA. FINDINGS: Skeletal structures: There is no evidence of fracture or subluxation involving the cervical spine. Vertebral body height and alignment are maintained. The odontoid process and lateral masses are intact. The atlantoaxial articulation is preserved. The spinous processes appear intact. Slight concavity of the inferior endplate of C7 is chronic. There is moderate multilevel facet arthrosis, disc space narrowing and endplate osteophytes arthrosis within the cervical spine. Soft tissues: The prevertebral and paraspinous soft tissues are within normal limits. Calvarium: The visualized calvarium at the skull base appears intact. Brain parenchyma: Partially visualized brain parenchyma at the skull base is within normal limits. Lung apices: Clear as visualized. IMPRESSION: No acute cervical spine fracture or subluxation. ACT 112: Negative or not required by law. Electronically signed by: Aston Dougherty M.D. 12/12/2024 8:52 AM Chest X-Ray 12/12/24 06:10 EXAM: XR chest 1V portable CLINICAL HISTORY: weakness TECHNIQUE: An X-ray image of the chest is obtained in AP projection. COMPARISON: 05/10/2024 11:28:06 SCALE TECHNICIAN FINDINGS: Pulmonary Parenchyma: Lungs are clear bilaterally. No evidence of consolidation, collapse, or focal opacities. No pulmonary nodules are identified. No evidence of pleural effusion or pleural thickening. Heart and Mediastinum: Heart size and shape are normal. No mediastinal widening or masses. No hilar or mediastinal lymphadenopathy. Unfolding of aorta Bony Thorax: Bony thorax appears intact without fractures or deformities. Soft Tissues: Soft tissues overlying the chest wall are unremarkable. IMPRESSION: Unfolding of aorta-stable. No acute cardiopulmonary abnormalities are identified. No other new interval abnormality since prior study. Electronically signed by Masoud Wallace 12-12-2024 08:[address] 12/12/24 06:10 CT head/brain wo con CLINICAL HISTORY: fall. TECHNIQUE: Multiple axial CT images of the head were obtained without contrast. A dose lowering technique was utilized adhering to the principles of ALARA. COMPARISON: 05/15/2024 FINDINGS: No intracranial hemorrhage seen. No mass effect, midline shift, or hydrocephalus. Stable mild chronic small vessel ischemic changes. No skull fracture seen. Visualized paranasal sinuses and mastoid air cells are clear. IMPRESSION: No acute findings. ACT 112: Negative or not required by law. The above report was generated using voice recognition software. It may contain grammatical, syntax or spelling errors. Electronically signed by: Juan Méndez M.D. 12/12/2024 8:39 AM Hip/Pelvis X-Ray 12/12/24 06:10 EXAM: XR hip RT 2V w pelvis CLINICAL HISTORY: fall TECHNIQUE: X-ray images of the right hip joints in anteroposterior (AP) and lateral views and pelvis were obtained in anteroposterior (AP) projection. COMPARISON: No prior studies are available for comparison. FINDINGS: Pelvic Bones: The pelvic bones, including the iliac wings, ischium, pubis, and sacrum, are normal and intact. There is no evidence of fractures, dislocations, or significant osseous lesions. Hip Joints: Bilateral hip joint osteoarthritis is seen. The femoral heads are normal and centered within the acetabulum. There is no evidence of fractures, avascular necrosis, or significant deformities. The sacroiliac joints appear normal and unremarkable. There is no evidence of sacroiliitis or significant degenerative changes. Symphysis Pubis: The symphysis pubis is normal and intact. There is no evidence of separation or widening. Soft Tissues: The visualized soft tissues are normal and unremarkable. There is no soft tissue swelling, calcification, or mass. Additional Findings: No other significant abnormalities are noted. IMPRESSION: Bilateral hip joint osteoarthritis is seen. No obvious fracture or dislocation. DISCLAIMER:A subtle bone abnormality or fracture may not be readily apparent on x-rays, thus clinical correlation and further imaging including follow up CT, MRI, or follow up x-rays are advised as needed. Electronically signed by Masoud Wallace 12-12-2024 08:24 AM Knee X-Ray 12/12/24 06:10 EXAM: XR knee RT 3V CLINICAL HISTORY: fall TECHNIQUE: X-ray images of the right knee were obtained in anteroposterior (AP), lateral, and sunrise/skyline (patellar) projections. COMPARISON: 02/03/2020 16:58:13 SCALE TECHNICIAN FINDINGS: Bone Structure and Joints: There is reduction of the joint space with marginal osteophytes and subarticular sclerosis, which is suggestive of osteoarthritic changes. Articular Surfaces: The articular surfaces are smooth and intact. No signs of osteophyte formation or subchondral sclerosis are seen. Patella: The patella is normal in position and alignment. There is no evidence of patellar dislocation or subluxation. Soft Tissues: The periarticular soft tissues appear normal and unremarkable. No soft tissue swelling, calcifications, or foreign bodies are noted. Additional Findings: There are no signs of degenerative changes, such as osteoarthritis or inflammatory arthropathy. There is no evidence of joint effusion. IMPRESSION: Osteoarthritis of the knee, stable. No fracture or dislocation. Disclaimer: A subtle bone abnormality or fracture may not be readily apparent on X-rays, thus clinical correlation and further imaging including follow-up CT, MRI, or follow-up X-rays are advised as needed. Electronically signed by Masoud Wallace 12-12-2024 08:[address] 12/12/24 06:10 CT SCAN OF THE LUMBAR SPINE WITHOUT CONTRAST CLINICAL HISTORY: Fall. Low back pain. COMPARISON STUDY: CT of the lumbar spine dated 02/03/2020 TECHNIQUE: CT scan of the lumbar spine is performed from the lower thoracic spine to the sacrum. Images are reviewed in the axial, sagittal, and coronal planes. IV contrast was not administered for this examination. A dose lowering technique was utilized adhering to the principles of ALARA. CT DOSE: 2308.32 mGy.cm FINDINGS: The skeletal structures are osteopenic. There is no evidence of fracture or malalignment involving the lumbar spine. Vertebral body height and alignment are maintained. Anterior and lateral marginal osteophytes are seen throughout. There has been laminectomy at L4. The remaining spinous processes and the transverse processes appear intact. There is no spondylolysis. No lytic or blastic lesion is seen. There is moderate to severe disc space narrowing at T12, L1-L2, and L2-L3 with associated endplate sclerosis. Moderate disc space narrowing and mild endplate sclerosis is seen at L4-L5. There is facet arthropathy is noted in the lower lumbar region. Mild disc space narrowing at L3-L4. Posterior disc osteophyte complexes are seen at all lumbar levels. There is no CT evidence of high-grade central canal stenosis. Lateral disc bulges are seen at L5-S1, right side greater than left. There may be impingement on the exiting right L5 nerve root. The visualized sacrum and bony pelvis appear intact. There is mild fatty atrophy of the paraspinous musculature. The abdominal aorta is normal in caliber noting mild atherosclerotic calcification. No retroperitoneal lymphadenopathy is seen. IMPRESSION: 1. No acute bony abnormality is identified involving the lumbar spine. 2. Osteopenia and spondylotic change as above. ACT 112: Negative or not required by law. Electronically signed by: Stevo Jackson M.D. 12/12/2024 9:35 AM Discharge Plan Visit Data Chief Complaint: Fall Stated Complaint: Fall, Back Pain, R Knee Pain, R Hip Pain ED Provider: Stevo Brennan Discharge Problem: Weakness, Fall, Flu-like symptoms, Acute dehydration, Acute UTI Patient Disposition: Admitted As Inpatient Condition: Fair Discharge Instructions Interventions: ED Discharge Assessment Last Done: 12/12/24 14:53 Discharge Problem: Fall Qualifiers: Encounter type: initial encounter Qualified Code(s): W19.XXXA - Unspecified fall, initial encounter
[2024-12-12] MEDS: ACETAMINOPHEN 1,000 MG/100 ML VIAL IV STA (06:52)
[2024-12-12] MEDS: SODIUM CHLORIDE 0.9% 1,000 ML IV SCH ×2 (06:52→15:27)
[2024-12-12 07:02] LABS: Hematocrit (blood only) 41.7 % (37.0-47.0); Hemoglobin 13.9 g/dl (12.0-16.0); Immature Granulocytes # (auto) 0.01 K/uL (0.01-0.20); Immature Granulocytes % (auto) 0.1 %; Mean Corpuscular Hemoglobin 32.2 pg (25.0-34.0); Mean Corpuscular Volume 96.5 fL (80.0-100.0); Platelet Count 218 K/uL (130-400); RDW Standard Deviation 51.7 fL (36.4-46.3); Red Blood Count 4.32 M/uL (4.20-5.40); White Blood Count 8.74 K/ul (4.8-10.8)
[2024-12-12 07:25] LABS: Alanine Aminotransferase 30.0 U/L (7-52); Albumin Globulin Ratio 1.7 (0.9-2); Albumin Level 3.8 gm/dl (3.4-5.0); Alkaline Phosphatase 57.0 U/L (34-104); Anion Gap 7.0 (3-11); Bilirubin,Total 0.5 mg/dl (0.2-1.0); Blood Urea Nitrogen 18.0 mg/dl (6-23); Calcium 9.1 mg/dl (8.6-10.3); Carbon Dioxide 30.0 mmol/L (21-32); Chloride 107.0 mmol/L (98-107); Creatine Kinase 135.0 U/L (26-192); Creatinine Clr Calc Pharmacy 75.6 ml/min; Globulin 2.3 gm/dl (2.5-4.0); Glucose 108.0 mg/dl (70-99(Fasting)); Magnesium 2.2 mg/dl (1.7-2.4); Potassium 3.8 mmol/L (3.5-5.1); Sodium 144.0 mmol/L (136-145); Total Protein 6.1 gm/dl (6.0-8.3)
[2024-12-12 07:40] LABS: Thyroid Stimulating Hormone 2.5 uIu/ml (0.300-4.500)
[2024-12-12 07:57] LABS: Appearance Urine Clear (Clear); Bacteria Urine Automated None Seen (None Seen); Epithelial Cell Urine Auto 0-2 /hpf (0-2); Glucose Urine UA Negative (Negative)
[2024-12-12 07:59] LABS: Influenza A virus by PCR Negative (Neg); Influenza B virus by PCR Negative (Neg); SARS CoV2 RNA(COVID-19) Ceph NEGATIVE (Negative)
--- NOTE | 2024-12-12 08:20 | XRay Report ---
EXAM: XR knee RT 3V CLINICAL HISTORY: fall TECHNIQUE: X-ray images of the right knee were obtained in anteroposterior (AP), lateral, and sunrise/skyline (patellar) projections. COMPARISON: 02/03/2020 16:58:13 LEAN MANUFACTURING COORDINATOR FINDINGS: Bone Structure and Joints: There is reduction of the joint space with marginal osteophytes and subarticular sclerosis, which is suggestive of osteoarthritic changes. Articular Surfaces: The articular surfaces are smooth and intact. No signs of osteophyte formation or subchondral sclerosis are seen. Patella: The patella is normal in position and alignment. There is no evidence of patellar dislocation or subluxation. Soft Tissues: The periarticular soft tissues appear normal and unremarkable. No soft tissue swelling, calcifications, or foreign bodies are noted. Additional Findings: There are no signs of degenerative changes, such as osteoarthritis or inflammatory arthropathy. There is no evidence of joint effusion. IMPRESSION: Osteoarthritis of the knee, stable. No fracture or dislocation. Disclaimer: A subtle bone abnormality or fracture may not be readily apparent on X-rays, thus clinical correlation and further imaging including follow-up CT, MRI, or follow-up X-rays are advised as needed. Electronically signed by Masoud Wallace 12-12-2024 08:19 AM
--- NOTE | 2024-12-12 08:22 | XRay Report ---
EXAM: XR ankle RT min 3V routine CLINICAL HISTORY: fall TECHNIQUE: X-ray images of the right ankle were obtained in anteroposterior (AP), lateral, and mortise projections. COMPARISON: 10:24:26 SOFTWARE DEVELOPER MANAGER . FINDINGS: Bone Structure: Postoperative status with fixation screw endplates are seen in distal fibula. Rest of bony structure appears unremarkable. Joint Spaces: Joint spaces are normal. No evidence of joint effusion or subluxation. Soft Tissues: Soft tissues appear normal and unremarkable. No soft tissue swelling, calcifications, or foreign bodies noted. Additional Findings: No signs of osteoarthritis, bone spurs, lytic or sclerotic lesions. IMPRESSION: Postoperative status with fixation screw endplates are seen in distal fibula.-stable. No other abnormality seen. No other new interval abnormality since prior study. Disclaimer: A subtle bone abnormality or fracture may not be readily apparent on X-rays, thus clinical correlation and further imaging including follow-up CT, MRI, or follow-up X-rays are advised as needed. Electronically signed by Masoud Wallace 12-12-2024 08:21 AM
--- NOTE | 2024-12-12 08:24 | XRay Report ---
EXAM: XR hip RT 2V w pelvis CLINICAL HISTORY: fall TECHNIQUE: X-ray images of the right hip joints in anteroposterior (AP) and lateral views and pelvis were obtained in anteroposterior (AP) projection. COMPARISON: No prior studies are available for comparison. FINDINGS: Pelvic Bones: The pelvic bones, including the iliac wings, ischium, pubis, and sacrum, are normal and intact. There is no evidence of fractures, dislocations, or significant osseous lesions. Hip Joints: Bilateral hip joint osteoarthritis is seen. The femoral heads are normal and centered within the acetabulum. There is no evidence of fractures, avascular necrosis, or significant deformities. The sacroiliac joints appear normal and unremarkable. There is no evidence of sacroiliitis or significant degenerative changes. Symphysis Pubis: The symphysis pubis is normal and intact. There is no evidence of separation or widening. Soft Tissues: The visualized soft tissues are normal and unremarkable. There is no soft tissue swelling, calcification, or mass. Additional Findings: No other significant abnormalities are noted. IMPRESSION: Bilateral hip joint osteoarthritis is seen. No obvious fracture or dislocation. DISCLAIMER:A subtle bone abnormality or fracture may not be readily apparent on x-rays, thus clinical correlation and further imaging including follow up CT, MRI, or follow up x-rays are advised as needed. Electronically signed by Masoud Wallace 12-12-2024 08:24 AM
--- NOTE | 2024-12-12 08:27 | XRay Report ---
EXAM: XR chest 1V portable CLINICAL HISTORY: weakness TECHNIQUE: An X-ray image of the chest is obtained in AP projection. COMPARISON: 05/10/2024 11:28:06 STEWARD/STEWARDESS WINE FINDINGS: Pulmonary Parenchyma: Lungs are clear bilaterally. No evidence of consolidation, collapse, or focal opacities. No pulmonary nodules are identified. No evidence of pleural effusion or pleural thickening. Heart and Mediastinum: Heart size and shape are normal. No mediastinal widening or masses. No hilar or mediastinal lymphadenopathy. Unfolding of aorta Bony Thorax: Bony thorax appears intact without fractures or deformities. Soft Tissues: Soft tissues overlying the chest wall are unremarkable. IMPRESSION: Unfolding of aorta-stable. No acute cardiopulmonary abnormalities are identified. No other new interval abnormality since prior study. Electronically signed by Masoud Wallace 12-12-2024 08:26 AM
[2024-12-12] MEDS: cefTRIAXone SODIUM 2,000 MG/50 ML BAG IV STA (08:28)
--- NOTE | 2024-12-12 08:41 | CT Scan Report ---
CT head/brain wo con CLINICAL HISTORY: fall. TECHNIQUE: Multiple axial CT images of the head were obtained without contrast. A dose lowering tech nique was utilized adhering to the principles of ALARA. COMPARISON: 05/15/2024 FINDINGS: No intracranial hemorrhage seen. No mass effect, midline shift, or hydrocephalus. Stable mi ld chronic small vessel ischemic changes. No skull fracture seen. Visualized paranasal sinuses and ma stoid air cells are clear. IMPRESSION: No acute findings. ACT 112: Negative or not required by law. The above report was generated using voice recognition software. It may contain grammatical, syntax o r spelling errors. Electronically signed by: Juan Méndez M.D. 12/12/2024 8:39 AM
--- NOTE | 2024-12-12 08:53 | CT Scan Report ---
CT SCAN OF THE CERVICAL SPINE CLINICAL HISTORY: Fall. COMPARISON STUDY: Cervical spine CT February 03, 2020. TECHNIQUE: CT scan of the cervical spine is performed from the skull base to the upper thoracic spine . Images are reviewed in the axial, sagittal, and coronal planes. IV contrast was not administered fo r this examination. A dose lowering technique was utilized adhering to the principles of ALARA. FINDINGS: Skeletal structures: There is no evidence of fracture or subluxation involving the cervical spine. Ve rtebral body height and alignment are maintained. The odontoid process and lateral masses are intact . The atlantoaxial articulation is preserved. The spinous processes appear intact. Slight concavity o f the inferior endplate of C7 is chronic. There is moderate multilevel facet arthrosis, disc space na rrowing and endplate osteophytes arthrosis within the cervical spine. Soft tissues: The prevertebral and paraspinous soft tissues are within normal limits. Calvarium: The visualized calvarium at the skull base appears intact. Brain parenchyma: Partially visualized brain parenchyma at the skull base is within normal limits. Lung apices: Clear as visualized. IMPRESSION: No acute cervical spine fracture or subluxation. ACT 112: Negative or not required by law. Electronically signed by: Aston Dougherty M.D. 12/12/2024 8:52 AM
--- NOTE | 2024-12-12 09:25 | Electrocardiogram Report ---
Test Reason : Blood Pressure : */* mmHG Vent. Rate : 71 BPM Atrial Rate : 71 BPM P-R Int : 168 ms QRS Dur : 96 ms QT Int : 372 ms P-R-T Axes : 27 -17 90 degrees QTcB Int : 404 ms Sinus rhythm with marked sinus arrhythmia Nonspecific T wave abnormality Abnormal ECG When compared with ECG of 10-May-2024 12:08, Prior tracing has arm lead reversal Lateral T abnormality has improved Confirmed by Feng Butler ([id number]) on 12/12/2024 9:24:56 AM Referred By: REFERRED SELF Confirmed By: Feng Butler
--- NOTE | 2024-12-12 09:36 | CT Scan Report ---
CT SCAN OF THE LUMBAR SPINE WITHOUT CONTRAST CLINICAL HISTORY: Fall. Low back pain. COMPARISON STUDY: CT of the lumbar spine dated 02/03/2020 TECHNIQUE: CT scan of the lumbar spine is performed from the lower thoracic spine to the sacrum. Gwendolyn ges are reviewed in the axial, sagittal, and coronal planes. IV contrast was not administered for thi s examination. A dose lowering technique was utilized adhering to the principles of ALARA. CT DOSE: 2308.32 mGy.cm FINDINGS: The skeletal structures are osteopenic. There is no evidence of fracture or malalignment in volving the lumbar spine. Vertebral body height and alignment are maintained. Anterior and lateral ma rginal osteophytes are seen throughout. There has been laminectomy at L4. The remaining spinous proce sses and the transverse processes appear intact. There is no spondylolysis. No lytic or blastic lesio n is seen. There is moderate to severe disc space narrowing at T12, L1-L2, and L2-L3 with associated endplate sclerosis. Moderate disc space narrowing and mild endplate sclerosis is seen at L4-L5. There is facet arthropathy is noted in the lower lumbar region. Mild disc space narrowing at L3-L4. Auxiliary Engineer ior disc osteophyte complexes are seen at all lumbar levels. There is no CT evidence of high-grade ce ntral canal stenosis. Lateral disc bulges are seen at L5-S1, right side greater than left. There may be impingement on the exiting right L5 nerve root. The visualized sacrum and bony pelvis appear intac t. There is mild fatty atrophy of the paraspinous musculature. The abdominal aorta is normal in calib er noting mild atherosclerotic calcification. No retroperitoneal lymphadenopathy is seen. IMPRESSION: 1. No acute bony abnormality is identified involving the lumbar spine. 2. Osteopenia and spondylotic change as above. ACT 112: Negative or not required by law. Electronically signed by: Stevo Jackson M.D. 12/12/2024 9:35 AM
--- NOTE | 2024-12-12 10:36 | History & Physical Report ---
Date of Service December 12, 2024 Assessment & Plan (1) UTI (urinary tract infection): Plan: Patient is a 78 year old F with a past medical history of COPD, nocturnal hypoxia, CAD/CABG, history of atrial flutter, prediabetes, hypertension, hyperlipidemia, depression presenting with mechanical fall and possible syncope. Reportedly fell in the kitchen last night around 11pm, slipped on the floor and unable to get herself off the floor. Patient thinks she may have passed out and awoke around 3am, then had to maneuver around apartment on buttocks because she couldn't stand up. Previous ankle injury s/p fracture repair several years ago. Found to have UTI in ED. #Mechanical Fall without injury * Admit to [facility] for additional treatment and management * Cervical/Lumbar CT, Hip/Pelvis/Knee Xray all without evidence of fracture. * Possible syncopal event, awoke on floor several hours after mechan fall, + headache upon arrival->CT head without acute findings; Chest Xray negative; EKG norm * PT/OT eval when able; ambulate w/o assist at baseline * Right ankle edematous, unilateral, no anticoagulation; D-dimer 1050-> Venous Doppler neg DVT; CT chest w/o evidence PE * Discharge planning- Lives alone in apartment [facility], unable to drive, must arrange transport in afternoon/evening. Possible safety concern at home, poss. unclear environment #Urinary Tract Infection, uncomplicated * UA + ketones, leuko esterase, calcium oxalate, mucous. Urine culture pending. * Ceftriaxone started-> continue Ceftriaxone 2gm Q24H * Stable renal functioning; Creat 0.76 * Clinically dry, given 1L NSS in ED-> IV fluids NSS at 100 ml/hr ordered; wean when able * Reports recent constipation- Colace BID ordered w/ Miralax as needed #COPD #Current Tobacco user * 55 pack-year, active smoker at 1 pack daily-> Nicotine patch ordered * On bronchodilator regimen w/ Breo and Incruse at home-> continue while inpatient * Albuterol as needed Q6H * Hx nocturnal hypoxia with 3LPM O2 baseline while asleep only * Will need smoking cessation counseling #CAD #Hypertension #Hyperlipidemia * Continue home meds for HTN * Continue home statin #Anxiety #Depression * Multiple agents at home- reporting fatigue and syncope vs. falling asleep on floor * On benzo's at home- continue while inpatient * Continue Paxil and Wellbutrin per home routine * Hold hydroxyzine- takes as needed for anxiety * Has been on Trazodone for sleep but not currently taking regularly. DVT Ppx: Lovenox Code status: DNR/DNI PCP: Dr. Barrios Dispo: Admit to [facility] Tele Patient seen in collaboration with Dr. Frank. Please see addendum.I spent a total of 60 minutes coordinating, documenting and providing care for this patient excluding time spent in the performance of separately billed services or time spent by another provider/QHP. (2) Accident due to mechanical fall without injury: (3) COPD (chronic obstructive pulmonary disease): (4) CAD (coronary artery disease): (5) Hyperlipidemia: (6) Anxiety and depression: History of Present Illness Primary Care Provider: Merlin Barrios MD Patient is a 78 year old F with a past medical history of COPD, nocturnal hypox ia, CAD/CABG, history of atrial flutter, prediabetes, hypertension, hyperlipidemia, depression presenting with mechanical fall and possible syncope. Reportedly fell in the kitchen last night around 11pm, slipped on the floor and unable to get herself off the floor. Patient thinks she may have passed out and awoke around 3am, then had to maneuver around apartment on buttocks because she couldn't stand up. Previous ankle injury s/p fracture repair several years ago. Found to have UTI in ED. Patient reports feeling "off" since receiving the Covid vaccine ~2 weeks ago. Had symptoms of chills, post-nasal drip, fatigue. Doesn't recall receiving treatment but thinks she was on a medicine "with 2 different medicines in one"; as per external chart review, patient was prescribed Augmentin on 11/25/24. Reports having a headache upon arrival to the ED and thinks she may have hit her head when falling, or possibly passed out. Also having chronic right ankle issues from an old fracture s/p surgical repair. Now feels the right ankle has "black tape wrapped around the ankle and squeezing". Denies fever, weight loss, cognitive changes, dizziness, vision/hearing changes, chest pain, palpitations, SOB, difficulty breathing, urinary concerns, N/V/D,skin rashes, lesions, bleeding, bruising. In the emergency department, patient was hemodynamically stable, afebrile, and with no evidence of sepsis. CT head with no acute findings. Chest Xray without acute cardiopulmonary abnormalities are identified. Cervical/Lumbar CT, Hip/Pelvis/Knee Xray all without evidence of fracture. Urine + ketones, leuko esterase, calcium oxalate, mucous. Ceftriaxone started. Urine culture pending. Clinically dry with elevated BUN//Creat ratio 23.7. NSS 1 L given in ED. No evidence of CINDY on labs. Possible syncope per patient report. EKG reassuring showing sinus rhythm, vent rate 71 bpm, QTc 404. As per external chart review, patient was seen by Internal Medicine on 11/25/24 for sinusitis and prescribed Augmentin 10 day course. Bilateral lower leg edema appears to be a chronic issue as noted on Family Medicine note 09/24/24. Noncompliance with Imdur noted on that record. Patient follows [facility] and last seen in 06/2024. History obtained primarily from the patient and via hospitalization record. The patient's family was not at the bedside; patient contacted her son who reportedly lives locally. External chart review obtained from [employer]. Allergies Allergy/AdvReac Type Severity Reaction Status Date / Time No Known Allergies Allergy Verified 12/12/24 11:39 Home Medications Medication Instructions Recorded Confirmed Type ascorbic acid (vitamin C) 1,000 mg 500 mg PO QAM 05/10/18 12/12/24 History tablet (Vitamin C) aspirin 81 mg tablet,delayed 81 mg PO QAM 05/10/18 12/12/24 History release calcium 600 mg (as carbonate)-vit 1 tab PO DAILY 05/10/18 12/12/24 History D3 20 mcg (800 unit) chewable tablet (Caltrate plus D) omega 1-gvi-lgj-fish oil 1,000 mg 1 cap PO HS 05/10/18 12/12/24 History (120 mg-180 mg) capsule (Fish Oil) paroxetine HCl 30 mg tablet 60 mg PO DAILY 05/10/18 12/12/24 History albuterol sulfate 90 mcg/actuation 2 puff inhalation Q6H PRN SHORT OF 01/14/19 12/12/24 History aerosol inhaler BREATH cyanocobalamin (vitamin B-12) 1,000 mcg PO HS 01/14/19 12/12/24 History 1,000 mcg tablet nitroglycerin 0.4 mg sublingual 0.4 mg sublingual DIRECTED PRN 01/14/19 12/12/24 History tablet Chest Pain sumatriptan succinate 100 mg tablet 100 mg PO UD PRN Migraine Headache 01/14/19 12/12/24 History rosuvastatin 40 mg tablet 40 mg PO HS 10/10/19 12/12/24 History umeclidinium 62.5 mcg/actuation 1 inh inhalation DAILY 02/10/20 12/12/24 History blister powder for inhalation (Incruse Ellipta) alprazolam 1 mg tablet 1 mg PO HS #10 tabs 02/18/20 12/12/24 Rx carvedilol 3.125 mg tablet 3.125 mg PO BID #60 tabs 11/14/21 12/12/24 Rx isosorbide mononitrate 60 mg 60 mg PO QAM #30 tabs 11/14/21 12/12/24 Rx tablet,extended release 24 hr carboxymethylcellulose sodium 1 % 1 drp OPB TID PRN Dry Eye(S) 03/18/23 12/12/24 History eye drops (Artificial Tears (carboxymethylcellulose)) amlodipine 5 mg tablet 5 mg PO QAM 06/01/23 12/12/24 History fluticasone furoate 100 1 inh inhalation QAM 05/10/24 12/12/24 History mcg-vilanterol 25 mcg/dose inhalation powder (Breo Ellipta) hydroxyzine HCl 25 mg tablet 25 mg PO TID PRN Anxiety 05/10/24 12/12/24 History nicotine 7 mg/24 hr daily 1 patch transdermal QAM #14 ea 05/14/24 12/12/24 Rx transdermal patch Saccharomyces boulardii 250 mg 250 mg PO BID 12/12/24 12/12/24 History capsule (Florastor) trazodone 50 mg tablet 50 mg PO DIRECTED 12/12/24 12/12/24 History Past Med/Surg History Problem List Accident due to mechanical fall without injury UTI (urinary tract infection) Acute electrocardiogram changes (Acute) Elevated troponin (Acute) Cough (Acute) SOB (shortness of breath) (Acute) COPD exacerbation (Acute) Hypoxia (Acute) Acute hypoxemic respiratory failure Status migrainosus without intractable migraine Acute intractable headache (Acute) Pneumonia Prediabetes Chest pain at rest Dyslipidemia, goal LDL below 70 Hypertensive urgency Abnormal EKG ASCVD (arteriosclerotic cardiovascular disease) Acute exacerbation of chronic obstructive pulmonary disease (COPD) (Acute) Acute electrocardiogram changes (Acute) DVT prophylaxis Abnormal CT scan, stomach Pneumonia due to COVID-19 virus Pneumonia (Acute) CAD (coronary artery disease) Nonobstructive by 2018 cardiac cath. NSTEMI ruled 2/2 coronary spasm. Hypoxia (Acute) Synovial cyst of right popliteal space Anxiety History of discectomy Acute respiratory failure with hypoxia COPD exacerbation Pneumonia Depression . Generalized anxiety disorder Hypertension COPD (chronic obstructive pulmonary disease) 2.5 LPM VIA N/C ONLY AT HS. Advair daily, rarely using rescue inhaler, ~ 3x per month Continues to smoke 1ppd Atrial flutter s/p ablation 05/2017. Follows with [facility]. History of breast biopsy History of laparoscopy 2/2 endometriosis Medical History Migraines Acute exacerbation of chronic obstructive pulmonary disease (COPD) COVID-19 Tear of lateral meniscus of right knee Tear of medial meniscus of right knee Degenerative disc disease Osteoarthritis Anxiety and depression Sleep apnea "MILD" ONLY WEARS O2 AT 2.5L AT HS Myocardial Infarction NSTEMI 04/2018 [facility] Hyperlipidemia On home oxygen therapy 2.5L AT HS NSTEMI (non-ST elevated myocardial infarction) Surgical History History of section X 2 History of colonoscopy History of dilatation and curettage History of open reduction and internal fixation (ORIF) procedure RT ANKLE History of discectomy LUMBAR History of tooth extraction History of eye surgery RT EYE (CAN'T REMEMBER WHAT FOR) History of cardiac cath 04/2018 for NSTEMI, Nonobstructive moderate proximal to mid LAD disease. History of cardiac radiofrequency ablation 2018 Family History Father Hypertension Brother Diabetes Depression Family history of diabetes mellitus Sister Depression Family history of diabetes mellitus Social History Smoking Status: Heavy tobacco smoker Tobacco Type: Cigarettes Cigarettes Per Day: 10; Second Hand Exposure: No; Do You Dip or Chew Tobacco: No; Hx Alcohol Use: No Hx Substance Use: No Preferred Language: Citizen Of [place] Communication Ability: Effective Communication Ability Comment: Inhibited only by SOB. Visual Impairment: No Limitations Hearing Ability: Normal Tender Labor Required: No Beliefs That Will Affect Care: None marital status: Current Living Situation: Alone How many Children do You have: 2 Feels Safe at Home: Yes Assistive Devices: Cane, Oxygen - at Night and Walker Review of Systems Review of Systems: All systems reviewed & are unremarkable except as noted in HPI & below Physical Exam Physical Exam: VITALS: Reviewed. WEIGHT/BMI reviewed. GEN: Healthy appearing, well-developed, NAD, mildly unclear PSYCH: AOx3. Bright mood and affect. HEENT -Head: NC/AT; -Eyes: PERRL, EOMI. No discharge or redn ess; -Ears: External ears are normal. -Nose: Normal nares. -Mouth and throat: Dry mucous membranes. Normal gums, mucosa, palate, multiple teeth missing NECK: Supple, with no masses. CV: RRR, no m/r/g. +1 edema RLE/R ankle LUNGS:+ nonproductive, wet cough, rhonchi clear with cough, no accessory muscle use, on 2LPM supplem O2 at 94% ABD: Soft, NT/ND, NBS, no masses or organomegaly. : N/A SKIN: Warm, well perfused. No skin rashes or abnormal lesions. MSK: No deformities EXT: No clubbing, cyanosis, or edema. NEURO: CN II-XII grossly intact, No focal deficits. JOHNSON with ease. Strength 4- 5/5 throughout. Results & Data Results & Data Vital Signs (Past 12 Hours) Vital Signs Temp Pulse Pulse Resp BP BP Pulse Ox 12/12/24 09:25 71 12/12/24 09:00 66 14 138/68 97 12/12/24 08:30 64 15 154/91 H 95 12/12/24 08:00 70 16 150/76 H 89 L 12/12/24 06:47 12/12/24 05:35 75 12/12/24 05:23 72 15 142/77 H 91 12/12/24 05:23 37 C 72 15 142/77 H 91 O2 Del Method 12/12/24 09:25 12/12/24 09:00 Room Air 12/12/24 08:30 Room Air 12/12/24 08:00 Room Air 12/12/24 06:47 Room Air 12/12/24 05:35 12/12/24 05:23 Room Air 12/12/24 05:23 Room Air Laboratory Results Short CBC 12/12/24 Range/Units 06:34 WBC 8.74 (4.8-10.8) K/ul Hgb 13.9 (12.0-16.0) g/dl Hct 41.7 (37.0-47.0) % Plt Count 218 (130-400) K/uL BMP 12/12/24 06:34 Sodium 144 Potassium 3.8 Chloride 107 Carbon Dioxide 30 BUN 18 Creatinine 0.76 Glucose 108 H Calcium 9.1 Cardiac Enzymes 12/12/24 Range/Units 06:34 Total Creatine Kinase 135 (26-192) U/L Liver Function 12/12/24 Range/Units 06:34 Total Bilirubin 0.5 (0.2-1.0) mg/dl AST 31 (13-39) U/L ALT 30 (7-52) U/L Alkaline Phosphatase 57 (34-104) U/L Albumin 3.8 (3.4-5.0) gm/dl Urine 12/12/24 Range/Units 06:57 Urine Color Yellow Urine Appearance Clear (Clear) Urine pH 5.5 (4.5-7.5) Ur Specific B[place]er 1.024 (1.000-1.030) Urine Protein Negative (Negative) Urine Glucose (UA) Negative (Negative) Diagnostic Findings Ankle X-Ray 12/12/24 06:10 EXAM: XR ankle RT min 3V routine CLINICAL HISTORY: fall TECHNIQUE: X-ray images of the right ankle were obtained in anteroposterior (AP), lateral, and mortise projections. 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 FINDINGS: Bone Structure: Postoperative status with fixation screw endplates are seen in distal fibula. Rest of bony structure appears unremarkable. Joint Spaces: Joint spaces are normal. No evidence of joint effusion or subluxation. Soft Tissues: Soft tissues appear normal and unremarkable. No soft tissue swelling, calcifications, or foreign bodies noted. Additional Findings: No signs of osteoarthritis, bone spurs, lytic or sclerotic lesions. IMPRESSION: Postoperative status with fixation screw endplates are seen in distal fibula.-stable. No other abnormality seen. No other new interval abnormality since prior study. Disclaimer: A subtle bone abnormality or fracture may not be readily apparent on X-rays, thus clinical correlation and further imaging including follow-up CT, MRI, or follow-up X-rays are advised as needed. Electronically signed by Masoud Wallace 12-12-2024 08:[address] 12/12/24 06:10 CT SCAN OF THE CERVICAL SPINE CLINICAL HISTORY: Fall. COMPARISON STUDY: Cervical spine CT February 03, 2020. TECHNIQUE: CT scan of the cervical spine is performed from the skull base to the upper thoracic spine. Images are reviewed in the axial, sagittal, and coronal planes. IV contrast was not administered for this examination. A dose lowering technique was utilized adhering to the principles of ALARA. FINDINGS: Skeletal structures: There is no evidence of fracture or subluxation involving the cervical spine. Vertebral body height and alignment are maintained. The odontoid process and lateral masses are intact. The atlantoaxial articulation is preserved. The spinous processes appear intact. Slight concavity of the inferior endplate of C7 is chronic. There is moderate multilevel facet arthrosis, disc space narrowing and endplate osteophytes arthrosis within the cervical spine. Soft tissues: The prevertebral and paraspinous soft tissues are within normal limits. Calvarium: The visualized calvarium at the skull base appears intact. Brain parenchyma: Partially visualized brain parenchyma at the skull base is within normal limits. Lung apices: Clear as visualized. IMPRESSION: No acute cervical spine fracture or subluxation. ACT 112: Negative or not required by law. Electronically signed by: Aston Dougherty M.D. 12/12/2024 8:52 AM Chest X-Ray 12/12/24 06:10 EXAM: XR chest 1V portable CLINICAL HISTORY: weakness TECHNIQUE: An X-ray image of the chest is obtained in AP projection. COMPARISON: 05/10/2024 11:28:06 IT INFRASTRUCTURE ARCHITECT FINDINGS: Pulmonary Parenchyma: Lungs are clear bilaterally. No evidence of consolidation, collapse, or focal opacities. No pulmonary nodules are identified. No evidence of pleural effusion or pleural thickening. Heart and Mediastinum: Heart size and shape are normal. No mediastinal widening or masses. No hilar or mediastinal lymphadenopathy. Unfolding of aorta Bony Thorax: Bony thorax appears intact without fractures or deformities. Soft Tissues: Soft tissues overlying the chest wall are unremarkable. IMPRESSION: Unfolding of aorta-stable. No acute cardiopulmonary abnormalities are identified. No other new interval abnormality since prior study. Electronically signed by Masoud Wallace 12-12-2024 08:[address] 12/12/24 06:10 CT head/brain wo con CLINICAL HISTORY: fall. TECHNIQUE: Multiple axial CT images of the head were obtained without contrast. A dose lowering technique was utilized adhering to the principles of ALARA. COMPARISON: 05/15/2024 FINDINGS: No intracranial hemorrhage seen. No mass effect, midline shift, or hydrocephalus. Stable mild chronic small vessel ischemic changes. No skull fracture seen. Visualized paranasal sinuses and mastoid air cells are clear. IMPRESSION: No acute findings. ACT 112: Negative or not required by law. The above report was generated using voice recognition software. It may contain grammatical, syntax or spelling errors. Electronically signed by: Juan Méndez M.D. 12/12/2024 8:39 AM Hip/Pelvis X-Ray 12/12/24 06:10 EXAM: XR hip RT 2V w pelvis CLINICAL HISTORY: fall TECHNIQUE: X-ray images of the right hip joints in anteroposterior (AP) and lateral views and pelvis were obtained in anteroposterior (AP) projection. COMPARISON: No prior studies are available for comparison. FINDINGS: Pelvic Bones: The pelvic bones, including the iliac wings, ischium, pubis, and sacrum, are normal and intact. There is no evidence of fractures, dislocations, or significant osseous lesions. Hip Joints: Bilateral hip joint osteoarthritis is seen. The femoral heads are normal and centered within the acetabulum. There is no evidence of fractures, avascular necrosis, or significant deformities. The sacroiliac joints appear normal and unremarkable. There is no evidence of sacroiliitis or significant degenerative changes. Symphysis Pubis: The symphysis pubis is normal and intact. There is no evidence of separation or widening. Soft Tissues: The visualized soft tissues are normal and unremarkable. There is no soft tissue swelling, calcification, or mass. Additional Findings: No other significant abnormalities are noted. IMPRESSION: Bilateral hip joint osteoarthritis is seen. No obvious fracture or dislocation. DISCLAIMER:A subtle bone abnormality or fracture may not be readily apparent on x-rays, thus clinical correlation and further imaging including follow up CT, MRI, or follow up x-rays are advised as needed. Electronically signed by Masoud Wallace 12-12-2024 08:24 AM Knee X-Ray 12/12/24 06:10 EXAM: XR knee RT 3V CLINICAL HISTORY: fall TECHNIQUE: X-ray images of the right knee were obtained in anteroposterior (AP), lateral, and sunrise/skyline (patellar) projections. 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 Articular Surfaces: The articular surfaces are smooth and intact. No signs of osteophyte formation or subchondral sclerosis are seen. Patella: The patella is normal in position and alignment. There is no evidence of patellar dislocation or subluxation. Soft Tissues: The periarticular soft tissues appear normal and unremarkable. No soft tissue swelling, calcifications, or foreign bodies are noted. Additional Findings: There are no signs of degenerative changes, such as osteoarthritis or inflammatory arthropathy. There is no evidence of joint effusion. IMPRESSION: Osteoarthritis of the knee, stable. No fracture or dislocation. Disclaimer: A subtle bone abnormality or fracture may not be readily apparent on X-rays, thus clinical correlation and further imaging including follow-up CT, MRI, or follow-up X-rays are advised as needed. Electronically signed by Masoud Wallace 12-12-2024 08:[address] 12/12/24 06:10 CT SCAN OF THE LUMBAR SPINE WITHOUT CONTRAST CLINICAL HISTORY: Fall. Low back pain. COMPARISON STUDY: CT of the lumbar spine dated 02/03/2020 TECHNIQUE: CT scan of the lumbar spine is performed from the lower thoracic spine to the sacrum. Images are reviewed in the axial, sagittal, and coronal planes. IV contrast was not administered for this examination. A dose lowering technique was utilized adhering to the principles of ALARA. CT DOSE: 2308.32 mGy.cm FINDINGS: The skeletal structures are osteopenic. There is no evidence of fracture or malalignment involving the lumbar spine. Vertebral body height and alignment are maintained. Anterior and lateral marginal osteophytes are seen throughout. There has been laminectomy at L4. The remaining spinous processes and the transverse processes appear intact. There is no spondylolysis. No lytic or blastic lesion is seen. There is moderate to severe disc space narrowing at T12, L1-L2, and L2-L3 with associated endplate sclerosis. Moderate disc space n arrowing and mild endplate sclerosis is seen at L4-L5. There is facet arthropathy is noted in the lower lumbar region. Mild disc space narrowing at L3-L4. Posterior disc osteophyte complexes are seen at all lumbar levels. There is no CT evidence of high-grade central canal stenosis. Lateral disc bulges are seen at L5-S1, right side greater than left. There may be impingement on the exiting right L5 nerve root. The visualized sacrum and bony pelvis appear intact. There is mild fatty atrophy of the paraspinous musculature. The abdominal aorta is normal in caliber noting mild atherosclerotic calcification. No retroperitoneal lymphadenopathy is seen. IMPRESSION: 1. No acute bony abnormality is identified involving the lumbar spine. 2. Osteopenia and spondylotic change as above. ACT 112: Negative or not required by law. Electronically signed by: Stevo Jackson M.D. 12/12/2024 9:35 AM Supervising Physician Co-Signing Physician Notes Attending addendum: The patient was seen and examined in emergency room She was brought in with a history of fall and was unable to get up for about 3 hours She slipped before the fall and denied to have any respiratory and/or cardiac or neurological symptoms before the falls She has been feeling much better and denies any significant symptoms during e xamination Noted to have possible UTI but no other significant injury on skeletal survey On examination Lying in bed without any acute distress Afebrile and remains hemodynamically stable Chestdecreased breath sounds bilaterally without any wheezing and/or crackles HeartS1-S2, regular Abdomensoft, nontender bowel sound present Extremitiesno edema She does not have any acute pain in hip joints and no acute arthritis on examination of the musculoskeletal system CNSalert, awake and oriented x 3. Generally weak but no focal neurodeficit Her admission labs, EKG and imaging studies reviewed. UA is suggestive of UTI and she will be given intravenous ceftriaxone urine to be sent for culture Status post fall without any significant injury on skeletal survey Her COPD remains stable does not have any exacerbation Her other significant medical conditions remained stable as above She will need to have PT OT evaluation and cyanide case hardener for discharge planning Agree with assessment and plan as outlined above by Emily MATHUR and take the full responsibility of care in the hospital Dr Regino Frank (3) COPD (chronic obstructive pulmonary disease) COPD type: COPD with acute exacerbation Qualified Code(s): J44.1 - Chronic obstructive pulmonary disease with (acute) exacerbation (4) CAD (coronary artery disease) Associated angina: without angina Coronary Disease-Associated Artery/Lesion type: circle artery [place] vs. transplanted heart: circle heart Qualified Code(s): I25.10 - Atherosclerotic heart disease of circle coronary artery without angina pectoris
[2024-12-12] MEDS: NICOTINE 14 MG/24 HR PATCH TD SCH (12:17)
[2024-12-12] MEDS ORDERED: ARTIFICIAL TEARS OP PRN (12:42)
[2024-12-12] MEDS: ASPIRIN 81 MG ECTAB PO STA (13:09)
[2024-12-12] MEDS: ISOSORBIDE MONO EXTENDED REL 60 MG TABCR PO STA (13:12)
[2024-12-12] MEDS: ALBUTEROL HFA 8 GM INHALER INH PRN (13:12)
[2024-12-12] MEDS: UMECLIDINIUM BROMIDE 62.5MCG/BLISTER 7 PUFFS/INHALER INH SCH (13:32)
[2024-12-12] MEDS: FLUTICASONE/VILANTEROL 100/25MCG 14 PUFFS/INHALER INH SCH (13:33)
[2024-12-12] MEDS: OPTIRAY 320 125ml IV ONE (13:46)
--- NOTE | 2024-12-12 14:26 | Ultrasound Report ---
BILATERAL LOWER EXTREMITY VENOUS DOPPLER CLINICAL HISTORY: Bilateral lower extremity edema. COMPARISON STUDY: Bilateral lower extremity venous Doppler ultrasound May 11, 2024. TECHNIQUE: Sonography of the deep venous system of the bilateral lower extremities was performed. Co mpression and augmentation were evaluated. FINDINGS: The bilateral common femoral, superficial femoral and popliteal veins were compressible. A ugmentation was normal. Flow was shown within the deep calf vessels. Bilateral lower extremity edema is incidentally noted. A 4.4 x 2.5 x 4.2 cm right popliteal cystic focus represents a popliteal cyst. IMPRESSION: No evidence of deep venous thrombus within the bilateral lower extremities. ACT 112: Negative or not required by law. Electronically signed by: Aston Dougherty M.D. 12/12/2024 2:25 PM
--- NOTE | 2024-12-12 14:26 | CT Scan Report ---
CT ANGIOGRAM OF THE CHEST CLINICAL HISTORY: Shortness of breath. Elevated d-dimer. Evaluate for pulmonary embolus. COMPARISON STUDY: Chest CT May 10, 2024. Chest radiograph performed earlier today. TECHNIQUE: Following the IV administration of 120 cc of Optiray 320, CT angiogram of the chest was pe rformed from the upper abdomen to the thoracic inlet utilizing the pulmonary embolus protocol. Images are reviewed in the axial, sagittal, and coronal planes. 3-D MIPS images are created and assessed. I V contrast was administered without complication. A dose lowering technique was utilized adhering to the principles of ALARA. CT DOSE: 793.87 mGy.cm FINDINGS: No pulmonary emboli are identified. Mild dilatation of the central pulmonary arteries is un changed. The heart is moderately enlarged. There is no pericardial effusion. There is no thoracic aor tic dissection. Moderate coronary artery calcification is again noted. There is no pneumothorax or pl eural effusion. Linear right lung densities favor atelectasis. There is no consolidation to suggest p neumonia. There are no suspicious pulmonary nodules. There is a small hiatal hernia. There may be dis isabell esophageal wall thickening. IMPRESSION: 1. No pulmonary emboli identified. 2. Linear right lung densities suggestive of atelectasis. No consolidation to suggest pneumonia. 3. Moderate cardiomegaly and mild dilatation of the central pulmonary arteries which raises the possi bility of pulmonary arterial hypertension. 4. Small hiatal hernia with suspected distal esophageal wall thickening. This is nonspecific but may represent esophagitis. ACT 112: Negative or not required by law. Electronically signed by: Aston Dougherty M.D. 12/12/2024 2:24 PM
[2024-12-12] MEDS ORDERED: ALUMINUM/MAGNESIUM SUSP 30 ML UDC PO PRN (14:53)
[2024-12-12] MEDS ORDERED: MAGNESIUM HYDROXIDE SUSP 30 ML UDC PO PRN (14:53)
[2024-12-12] MEDS ORDERED: POLYETHYLENE (MIRALAX) 17 GM PACK PO PRN (14:53)
[2024-12-12] MEDS: ACETAMINOPHEN 325 MG TAB PO PRN (15:23)
[2024-12-12] MEDS: ENOXAPARIN INJ 40 MG/0.4 ML SYR SQ SCH (15:26)
[2024-12-12] MEDS: DOCUSATE SODIUM 100 MG CAP PO SCH (20:08)
[2024-12-12] MEDS: CYANOCOBALAMIN (B-12) 500 MCG TABLET PO SCH (20:11)
[2024-12-12] MEDS: ROSUVASTATIN CALCIUM 20 MG TAB PO SCH (20:11)
--- NOTE | 2024-12-13 04:30 | Communication Note ---
Date of Service: December 13, 2024 Patient with painless hematuria symptoms as per RN. AP Hematuria secondary to complicated UTI H&H now Hold aspirin
[2024-12-13 05:06] LABS: Hematocrit (blood only) 38.6 % (37.0-47.0); Hemoglobin 12.6 g/dl (12.0-16.0); Immature Granulocytes # (auto) 0.01 K/uL (0.01-0.20); Immature Granulocytes % (auto) 0.1 %; Mean Corpuscular Hemoglobin 32.1 pg (25.0-34.0); Mean Corpuscular Volume 98.2 fL (80.0-100.0); Platelet Count 196 K/uL (130-400); RDW Standard Deviation 51.6 fL (36.4-46.3); Red Blood Count 3.93 M/uL (4.20-5.40); White Blood Count 6.72 K/ul (4.8-10.8)
[2024-12-13 05:23] LABS: Alanine Aminotransferase 22.0 U/L (7-52); Albumin Globulin Ratio 1.5 (0.9-2); Albumin Level 3.2 gm/dl (3.4-5.0); Alkaline Phosphatase 54.0 U/L (34-104); Anion Gap 4.0 (3-11); Bilirubin,Total 0.7 mg/dl (0.2-1.0); Blood Urea Nitrogen 10.0 mg/dl (6-23); Calcium 8.3 mg/dl (8.6-10.3); Carbon Dioxide 30.0 mmol/L (21-32); Chloride 105.0 mmol/L (98-107); Creatinine Clr Calc Pharmacy 83.0 ml/min; Globulin 2.1 gm/dl (2.5-4.0); Glucose 136.0 mg/dl (70-99(Fasting)); Potassium 3.7 mmol/L (3.5-5.1); Sodium 139.0 mmol/L (136-145); Total Protein 5.3 gm/dl (6.0-8.3)
[2024-12-13] MEDS ORDERED: ASPIRIN 81 MG ECTAB PO SCH (09:00)
[2024-12-13] MEDS: ISOSORBIDE MONO EXTENDED REL 60 MG TABCR PO SCH (09:11)
[2024-12-13] MEDS: cefTRIAXone SODIUM 2,000 MG/50 ML BAG IV SCH (09:12)
[2024-12-13] MEDS: ONDANSETRON INJ 2 MG/ML 2 ML VIAL IV PRN (09:39)
[2024-12-13 09:56] LABS: Amphetamines+Metham, Urine Neg (Neg); MDMA (Ecstacy), Urine Neg (Neg); Marijuana, Urine Neg (Neg)
[2024-12-13] MEDS: REMOVE NICODERM PATCH SCH (10:16)
--- NOTE | 2024-12-13 10:38 | Ultrasound Report ---
Clinical History: Syncope Technique: Carotid sonography was performed Findings: Mild atherosclerotic plaque is seen within both carotid bulbs. No significant stenosis is seen on gerard scale images. Antegrade flow is seen within both vertebral arteries. Peak systolic velocities are as follows: Right common carotid artery: 75 cm per second Right internal carotid artery: 45 cm per second Right external carotid artery: 53 cm per second Right ICA/CCA PSV ratio: <1 Left common carotid artery: 74 cm per second Left internal carotid artery: 125 cm per second Left external carotid artery:65 cm per second Left ICA/CCA PSV ratio: 2 Impression: Bilateral carotid atherosclerosis, without significant stenosis Electronically signed by Rubén Pierson 12-13-2024 10:38 AM
[2024-12-13 13:09] LABS: Hematocrit (blood only) 43.2 % (37.0-47.0); Hemoglobin 14.8 g/dl (12.0-16.0)
[2024-12-13] MEDS ORDERED: hydrALAZINE 10 MG TAB PO PRN (13:11)
--- NOTE | 2024-12-13 13:35 | Hospitalist Progress Note ---
Date of Service December 13, 2024 Assessment & Plan (1) UTI (urinary tract infection): Plan: Patient is a 78 year old F with a past medical history of COPD, nocturnal hypoxia, CAD/CABG, history of atrial flutter, prediabetes, hypertension, hyperlipidemia, depression presenting with mechanical fall and possible syncope. Reportedly fell in the kitchen last night around 11pm, slipped on the floor and unable to get herself off the floor. Patient thinks she may have passed out and awoke around 3am, then had to maneuver around apartment on buttocks because she couldn't stand up. Previous ankle injury s/p fracture repair several years ago. Found to have UTI in ED. Mechanical Fall Ambulatory dysfunction Generalized weakness Received COVID-vaccine recently Imaging studies showed no signs of fractures PT OT, fall precautions Case management to help with discharge plan Suspected Syncope --CT head:No acute findings. --Carotid Doppler:Bilateral carotid atherosclerosis, without significant stenosis --ECHO pending Monitor on telemetry to rule out any arrhythmias Will advise to get ZIO monitor as outpatient on discharge Urinary Tract Infection, uncomplicated Blood cultures pending Urine culture pending Empirically on IV Rocephin Received IV fluids Hematuria Likely due to UTI/? Trauma Aspirin on hold Avoid anticoagulation Hemoglobin stable Monitor May need urology evaluation as outpatient for possible cystoscopy Constipation Continue bowel regimen Encouraged to ambulate Elevated D-dimer CTA showed no PE Venous Doppler showed no DVT COPD Tobacco use disorder Chronic oxygen dependency--on 3 L at bedtime 55 pack-year, active smoker at 1 pack daily-> Nicotine patch ordered Patient states that she quit smoking 2 days ago Respiratory status seems to be at baseline Continue home inhalers Continue supplemental oxygen at bedtime CAD Hyperlipidemia Continue Coreg, lisinopril, isosorbide, Crestor Resume aspirin as able Anxiety Depression Patient on multiple medications including alprazolam, bupropion, paroxetine Trazodone as needed Cautiously resume home medications Hold sedating medications if needed DVT Px: SCDs for now Re: Hematuria Code status: DNR/DNI Disposition PT OT prior to discharge (2) Accident due to mechanical fall without injury: (3) COPD (chronic obstructive pulmonary disease): (4) CAD (coronary artery disease): (5) Hyperlipidemia: (6) Anxiety and depression: Admission and Anticipated Discharge Date Admission Date: December 12, 2024 Subjective Patient is seen and examined at bedside Reports having nausea this morning during my encounter Also reports chronic cough which is unchanged Minimal chest tenderness Hematuria seems to be resolved States that she quit smoking 2 days ago No other complaints today Review of Systems Review of Systems: All systems reviewed & are unremarkable except as noted in Subjective Physical Exam Physical Exam: Physical Exam: Vitals signs as noted above General Appearance:Overweight, no apparent distress Head: normocephalic, Atraumatic Eyes: normal inspection, EOMI Neck: supple, Trachea midline Respiratory/Chest: Decreased breath sounds, CTA,+ mild tender, No accessory muscle use Cardiovascular: S1, S2, No murmur Abdomen/GI:Soft, Non tender, Bowel sounds present Extremities/Musculoskeletal:normal inspection, Trace edema Neurologic/Psych:AAOX3, grossly no focal neurological deficits Skin: normal color, warm Results & Data Results & Data Vital Signs (Past 12 Hours) Vital Signs Temp Pulse Pulse Resp BP Pulse Ox O2 Del Method 12/13/24 12:03 Nasal Cannula 12/13/24 11:44 36.7 C 58 L 18 173/93 H 94 Nasal Cannula 12/13/24 08:30 36.8 C 72 18 181/95 H 93 Nasal Cannula 12/13/24 06:16 66 12/13/24 03:44 36.3 C L 66 18 136/80 94 Nasal Cannula O2 Flow Rate 12/13/24 12:03 2 12/13/24 11:44 2 12/13/24 08:30 3 12/13/24 06:16 12/13/24 03:44 1 Laboratory Results Short CBC 12/13/24 12/13/24 Range/Units 04:42 12:47 WBC 6.72 (4.8-10.8) K/ul Hgb 12.6 14.8 (12.0-16.0) g/dl Hct 38.6 43.2 (37.0-47.0) % Plt Count 196 (130-400) K/uL BMP 12/13/24 04:42 Sodium 139 Potassium 3.7 Chloride 105 Carbon Dioxide 30 BUN 10 Creatinine 0.69 Glucose 136 H Calcium 8.3 L Liver Function 12/13/24 Range/Units 04:42 Total Bilirubin 0.7 (0.2-1.0) mg/dl AST 25 (13-39) U/L ALT 22 (7-52) U/L Alkaline Phosphatase 54 (34-104) U/L Albumin 3.2 L (3.4-5.0) gm/dl (3) COPD (chronic obstructive pulmonary disease) COPD type: COPD with acute exacerbation Qualified Code(s): J44.1 - Chronic obstructive pulmonary disease with (acute) exacerbation (4) CAD (coronary artery disease) Coronary Disease-Associated Artery/Lesion type: [place] artery [place] vs. [place] heart: [place] heart Associated angina: without angina Qualified Code(s): I25.10 - Atherosclerotic heart disease of [place] coronary artery without angina pectoris
[2024-12-14] MEDS: ASPIRIN 81 MG ECTAB PO SCH (11:37)
[2024-12-14] MEDS: DOXYCYCLINE HYCLATE 100 MG CAP PO SCH (11:42)
--- NOTE | 2024-12-14 13:25 | Hospitalist Progress Note ---
Date of Service December 14, 2024 Assessment & Plan (1) UTI (urinary tract infection): Plan: Patient is a 78 year old F with a past medical history of COPD, nocturnal hypoxia, CAD/CABG, history of atrial flutter, prediabetes, hypertension, hyperlipidemia, depression presenting with mechanical fall and possible syncope. Reportedly fell in the kitchen last night around 11pm, slipped on the floor and unable to get herself off the floor. Patient thinks she may have passed out and awoke around 3am, then had to maneuver around apartment on buttocks because she couldn't stand up. Previous ankle injury s/p fracture repair several years ago. Found to have UTI in ED. Mechanical Fall Ambulatory dysfunction Generalized weakness Received COVID-vaccine recently Imaging studies showed no signs of fractures Continue PT OT, fall precautions Case management to help with discharge plan PT OT recommends acute rehab Suspected Syncope --CT head:No acute findings. --Carotid Doppler:Bilateral carotid atherosclerosis, without significant stenosis --ECHO: EF 65 to 70%. Right ventricle systolic function is normal. No significant valvular disease. -- environmental monitoring technician showed PACs but otherwise no significant findings Monitor on telemetry to rule out any arrhythmias Will advise to get ZIO monitor as outpatient on discharge Urinary Tract Infection, uncomplicated Blood cultures negative to date Urine culture negative Empirically on IV Rocephin Received IV fluids Hematuria Likely due to UTI/? Trauma Aspirin on hold Avoid anticoagulation Hemoglobin stable Monitor Advised to follow-up with urology as outpatient for possible cystoscopy Acute bronchitis Chest CT showed no pneumonia Empirically on doxycycline, Rocephin Constipation Continue bowel regimen Encouraged to ambulate Elevated D-dimer CTA showed no PE Venous Doppler showed no DVT COPD Tobacco use disorder Chronic oxygen dependency--on 3 L at bedtime 55 pack-year, active smoker at 1 pack daily-> Nicotine patch ordered Patient states that she quit smoking 2 days ago Respiratory status seems to be at baseline Continue home inhalers Continue supplemental oxygen at bedtime CAD Hyperlipidemia Continue Coreg, lisinopril, isosorbide, Crestor Resume aspirin as able Hypertension positive Orthostatics Blood pressure variable Hold amlodipine for now Continue Coreg, lisinopril Also on isosorbide Teds Anxiety Depression Patient on multiple medications including alprazolam, bupropion, paroxetine Trazodone as needed Cautiously resume home medications Hold sedating medications if needed DVT Px: SCDs for now Re: Hematuria Code status: DNR/DNI Disposition Acute rehab when accepted (2) Accident due to mechanical fall without injury: (3) COPD (chronic obstructive pulmonary disease): (4) CAD (coronary artery disease): (5) Hyperlipidemia: (6) Anxiety and depression: Admission and Anticipated Discharge Date Admission Date: December 12, 2024 Subjective Patient is seen and examined at bedside States feeling slightly better today Reports headache, generalized body ache Also reports cough with minimal expectoration No recurrence of hematuria today Denies any chest pain, dyspnea No other complaints Review of Systems Review of Systems: All systems reviewed & are unremarkable except as noted in Subjective Physical Exam Physical Exam: Physical Exam: Vitals signs as noted above General Appearance:Overweight, no apparent distress Head: normocephalic, Atraumatic Eyes: normal inspection, EOMI Neck: supple, Trachea midline Respiratory/Chest: Decreased breath sounds, CTA,+ mild tender, No accessory muscle use Cardiovascular: S1, S2, No murmur Abdomen/GI:Soft, Non tender, Bowel sounds present Extremities/Musculoskeletal:normal inspection, Trace edema Neurologic/Psych:AAOX3, grossly no focal neurological deficits Skin: normal color, warm Results & Data Results & Data Vital Signs (Past 12 Hours) Vital Signs Temp Pulse Pulse Resp BP BP Pulse Ox 12/14/24 09:57 12/14/24 08:40 36.7 C 64 20 174/79 H 91 12/14/24 05:47 61 12/14/24 04:04 36.6 C 85 16 163/79 H 94 O2 Del Method O2 Flow Rate 12/14/24 09:57 Nasal Cannula 3 12/14/24 08:40 Nasal Cannula 3 12/14/24 05:47 12/14/24 04:04 Room Air (3) COPD (chronic obstructive pulmonary disease) COPD type: COPD with acute exacerbation Qualified Code(s): J44.1 - Chronic obstructive pulmonary disease with (acute) exacerbation (4) CAD (coronary artery disease) Coronary Disease-Associated Artery/Lesion type: [place] artery [place] vs. transplanted heart: [place] heart Associated angina: without angina Qualified Code(s): I25.10 - Atherosclerotic heart disease of [place] coronary artery without angina pectoris
[2024-12-15 06:58] LABS: Hematocrit (blood only) 39.2 % (37.0-47.0); Hemoglobin 12.8 g/dl (12.0-16.0); Mean Corpuscular Hemoglobin 32.0 pg (25.0-34.0); Mean Corpuscular Volume 98.0 fL (80.0-100.0); Platelet Count 202 K/uL (130-400); RDW Standard Deviation 50.7 fL (36.4-46.3); Red Blood Count 4.00 M/uL (4.20-5.40); White Blood Count 6.18 K/ul (4.8-10.8)
[2024-12-15 07:26] LABS: Anion Gap 5.0 (3-11); Blood Urea Nitrogen 8.0 mg/dl (6-23); Calcium 8.5 mg/dl (8.6-10.3); Carbon Dioxide 33.0 mmol/L (21-32); Chloride 103.0 mmol/L (98-107); Creatinine Clr Calc Pharmacy 85.0 ml/min; Glucose 104.0 mg/dl (70-99(Fasting)); Magnesium 1.9 mg/dl (1.7-2.4); Potassium 3.7 mmol/L (3.5-5.1); Sodium 141.0 mmol/L (136-145)
--- NOTE | 2024-12-15 12:53 | Hospitalist Progress Note ---
Date of Service December 15, 2024 Assessment & Plan (1) UTI (urinary tract infection): Plan: Patient is a 78 year old F with a past medical history of COPD, nocturnal hypoxia, CAD/CABG, history of atrial flutter, prediabetes, hypertension, hyperlipidemia, depression presenting with mechanical fall and possible syncope. Reportedly fell in the kitchen last night around 11pm, slipped on the floor and unable to get herself off the floor. Patient thinks she may have passed out and awoke around 3am, then had to maneuver around apartment on buttocks because she couldn't stand up. Previous ankle injury s/p fracture repair several years ago. Found to have UTI in ED. Mechanical Fall Ambulatory dysfunction Generalized weakness Received COVID-vaccine recently Imaging studies showed no signs of fractures Continue PT OT, fall precautions Case management to help with discharge plan Plan to discharge to acute rehab when accepted Suspected Syncope --CT head:No acute findings. --Carotid Doppler:Bilateral carotid atherosclerosis, without significant stenosis --ECHO: EF 65 to 70%. Right ventricle systolic function is normal. No significant valvular disease. -- ekg monitor showed PACs but otherwise no significant findings Monitor on telemetry to rule out any arrhythmias Will advise to get ZIO monitor as outpatient on discharge Rule out urinary Tract Infection Blood cultures negative to date Urine culture negative Empirically received IV Rocephin Received IV fluids Hematuria--resolved Likely due to Trauma Avoid anticoagulation Hemoglobin stable Monitor Advised to follow-up with urology as outpatient for possible cystoscopy Acute bronchitis Chest CT showed no pneumonia Empirically on doxycycline Constipation Continue bowel regimen Encouraged to ambulate Elevated D-dimer CTA showed no PE Venous Doppler showed no DVT COPD Tobacco use disorder Chronic oxygen dependency--on 3 L at bedtime 55 pack-year, active smoker at 1 pack daily-> Nicotine patch ordered Patient states that she quit smoking 2 days ago Respiratory status seems to be at baseline Continue home inhalers Continue supplemental oxygen at bedtime CAD Hyperlipidemia Continue Coreg, lisinopril, isosorbide, Crestor Resume aspirin as able Hypertension Positive Orthostatics Blood pressure stable Hold amlodipine for now Continue Coreg, lisinopril Also on isosorbide Added teds Anxiety Depression Patient on multiple medications including alprazolam, bupropion, paroxetine Trazodone as needed Cautiously resume home medications Hold sedating medications if needed DVT Px: SCDs for now Re: Hematuria Code status: DNR/DNI Disposition Acute rehab when accepted (2) Accident due to mechanical fall without injury: (3) COPD (chronic obstructive pulmonary disease): (4) CAD (coronary artery disease): (5) Hyperlipidemia: (6) Anxiety and depression: Admission and Anticipated Discharge Date Admission Date: December 12, 2024 Subjective Patient is seen and examined at bedside Less cough today Generalized weakness slowly improving No other new complaints today Feels better today No recurrence of hematuria Denies any chest pain, dyspnea, abdominal pain Waiting for rehab placement Review of Systems Review of Systems: All systems reviewed & are unremarkable except as noted in Subjective Physical Exam Physical Exam: Physical Exam: Vitals signs as noted above General Appearance:Overweight, no apparent distress Head: normocephalic, Atraumatic Eyes: normal inspection, EOMI Neck: supple, Trachea midline Respiratory/Chest: Decreased breath sounds, CTA,+ mild tender, No accessory muscle use Cardiovascular: S1, S2, No murmur Abdomen/GI:Soft, Non tender, Bowel sounds present Extremities/Musculoskeletal:normal inspection, Trace edema Neurologic/Psych:AAOX3, grossly no focal neurological deficits Skin: normal color, warm Results & Data Results & Data Vital Signs (Past 12 Hours) Vital Signs Temp Pulse Pulse Resp BP Pulse Ox O2 Del Method 12/15/24 11:36 36.7 C 53 L 18 130/75 93 Room Air 12/15/24 09:48 Nasal Cannula 12/15/24 08:07 36.7 C 59 L 18 158/87 H 92 Room Air 12/15/24 05:50 63 12/15/24 04:19 36.7 C 61 18 138/67 95 Nasal Cannula O2 Flow Rate 12/15/24 11:36 12/15/24 09:48 2 12/15/24 08:07 12/15/24 05:50 12/15/24 04:19 2 Laboratory Results Short CBC 12/15/24 Range/Units 06:10 WBC 6.18 (4.8-10.8) K/ul Hgb 12.8 (12.0-16.0) g/dl Hct 39.2 (37.0-47.0) % Plt Count 202 (130-400) K/uL BMP 12/15/24 06:10 Sodium 141 Potassium 3.7 Chloride 103 Carbon Dioxide 33 H BUN 8 Creatinine 0.67 Glucose 104 H Calcium 8.5 L (3) COPD (chronic obstructive pulmonary disease) COPD type: COPD with acute exacerbation Qualified Code(s): J44.1 - Chronic obstructive pulmonary disease with (acute) exacerbation (4) CAD (coronary artery disease) Coronary Disease-Associated Artery/Lesion type: [place] artery [place] vs. transplanted heart: [place] heart Associated angina: without angina Qualified Code(s): I25.10 - Atherosclerotic heart disease of [place] coronary artery without angina pectoris
[2024-12-15 19:43] LABS: Base Excess VBG 6.6 mEq/L; HCO3 VBG 31 mmol/L; Oxygen Saturation VBG 90.4 %; PCO2 VBG 40 mmHg (38-50); PO2 VBG 53 mmHg; pH VBG 7.49 (7.36-7.41)
[2024-12-15] MEDS: MAGNESIUM SULFATE / D5W 1 GM/100 ML BAG IV SCH (22:53)
[2024-12-15] MEDS: MoRPHine SULFATE 4 MG/ML 1 ML CARP\\VIAL IV PRN (23:55)
[2024-12-16] MEDS: PROMETHAZINE 6.25 MG/50.25 ML BAG IV PRN (00:06)
[2024-12-16 01:15] LABS: Base Excess VBG 6.4 mEq/L; HCO3 VBG 32 mmol/L; Oxygen Saturation VBG 91.3 %; PCO2 VBG 48 mmHg (38-50); PO2 VBG 59 mmHg; pH VBG 7.43 (7.36-7.41)
[2024-12-16 01:21] LABS: Hematocrit (blood only) 45.2 % (37.0-47.0); Hemoglobin 15.0 g/dl (12.0-16.0); Immature Granulocytes # (auto) 0.01 K/uL (0.01-0.20); Immature Granulocytes % (auto) 0.1 %; Mean Corpuscular Hemoglobin 32.1 pg (25.0-34.0); Mean Corpuscular Volume 96.8 fL (80.0-100.0); Platelet Count 233 K/uL (130-400); RDW Standard Deviation 49.1 fL (36.4-46.3); Red Blood Count 4.67 M/uL (4.20-5.40); White Blood Count 8.08 K/ul (4.8-10.8)
[2024-12-16 01:38] LABS: Magnesium 2.5 mg/dl (1.7-2.4)
--- NOTE | 2024-12-16 01:43 | XRay Report ---
EXAM: XR chest 1V portable CLINICAL HISTORY: low O2. TECHNIQUE: An X-ray image of the chest is obtained in AP projection. COMPARISON: 12/12/2024 CR FINDINGS: Pulmonary Parenchyma: No evidence of consolidation, collapse, or focal opacities. No pulmonary nodules are identified. Elevated right copula of the diaphragm with obliterated right costophrenic recess suggests pleural reaction/effusion to be correlated clinically No evidence of left pleural effusion or pleural thickening. Heart and Mediastinum: Heart size and shape are normal. No mediastinal widening or masses. No hilar or mediastinal lymphadenopathy. prominent aortic shadow Bony Thorax: Bony thorax appears intact without fractures or deformities. Soft Tissues: Soft tissues overlying the chest wall are unremarkable. IMPRESSION: 1. Elevated right copula of the diaphragm with obliterated right costophrenic recess suggests pleural reaction/effusion to be correlated clinically (new) 2. No other new interval abnormality since prior study. Electronically signed by Yong White 12-16-2024 01:42 AM
[2024-12-16 01:48] LABS: Partial Thromboplastin Time 28 Seconds (21-31)
--- NOTE | 2024-12-16 11:15 | CT Scan Report ---
CT head/brain wo con CLINICAL HISTORY: 79 years-old Female with Hyptersion, delirium. Acutely altered mental status TECHNIQUE: Multiple axial CT images of the head were obtained without contrast. A dose lowering tech nique was utilized adhering to the principles of ALARA. CT DOSE: 703.85 mGy.cm COMPARISON: 12/12/2024 FINDINGS: No acute intracranial hemorrhage, midline shift, intracranial mass, hydrocephalus, territorial ischem ia or abnormal extra-axial collection. Involutional changes with chronic microvascular ischemic disea se. Unchanged ex vacuo ventriculomegaly. The calvarium is intact. Prior bilateral lens repair. The paranasal sinuses, mastoid air cells, and m iddle ear cavities are clear. IMPRESSION: No acute intracranial abnormality. ACT 112: Negative or not required by law. The above report was generated using voice recognition software. It may contain grammatical, syntax o r spelling errors. Electronically signed by: Jimmie Andrews M.D. 12/16/2024 11:12 AM
--- NOTE | 2024-12-16 14:55 | Electrocardiogram Report ---
Test Reason : Blood Pressure : */* mmHG Vent. Rate : 92 BPM Atrial Rate : 92 BPM P-R Int : 160 ms QRS Dur : 96 ms QT Int : 362 ms P-R-T Axes : 56 -19 90 degrees QTcB Int : 447 ms Normal sinus rhythm Abnormal ECG When compared with ECG of 12-Dec-2024 06:44, No significant change was found Confirmed by Adin Wood ([id number]) on 12/16/2024 2:55:18 PM Referred By: REFERRED SELF Confirmed By: Adin Wood
--- NOTE | 2024-12-16 16:04 | Hospitalist Progress Note ---
Date of Service December 16, 2024 Assessment & Plan (1) UTI (urinary tract infection): Plan: Patient is a 78 year old F with a past medical history of COPD, nocturnal hypoxia, CAD/CABG, history of atrial flutter, prediabetes, hypertension, hyperlipidemia, depression presenting with mechanical fall and possible syncope. Reportedly fell in the kitchen last night around 11pm, slipped on the floor and unable to get herself off the floor. Patient thinks she may have passed out and awoke around 3am, then had to maneuver around apartment on buttocks because she couldn't stand up. Previous ankle injury s/p fracture repair several years ago. Found to have UTI in ED. Mechanical Fall Ambulatory dysfunction Generalized weakness Received COVID-vaccine recently Imaging studies showed no signs of fractures Continue PT OT, fall precautions Case management to help with discharge plan Plan to discharge to acute rehab when medically stable Suspected Syncope --CT head:No acute findings. --Carotid Doppler:Bilateral carotid atherosclerosis, without significant stenosis --ECHO: EF 65 to 70%. Right ventricle systolic function is normal. No significant valvular disease. -- monitoring engineer showed PACs but otherwise no significant findings Monitor on telemetry to rule out any arrhythmias Will advise to get ZIO monitor as outpatient on discharge Monitor Rule out urinary Tract Infection Blood cultures negative to date Urine culture negative Empirically received IV Rocephin Received IV fluids Altered mental status: ? Secondary to medication DD: Toxic encephalopathy Delusional during last admission noted as well Mood disorder Having hallucinations overnight On chronic benzodiazepine Was on paroxetine, seem to be recently started on bupropion Given concern for developing serotonin syndrome, will hold bupropion for now Will request psychiatry evaluation Hematuria--resolved Likely due to Trauma Avoid anticoagulation Hemoglobin stable Monitor Advised to follow-up with urology as outpatient for possible cystoscopy Acute bronchitis Chest CT showed no pneumonia Empirically on doxycycline Constipation Continue bowel regimen Encouraged to ambulate Elevated D-dimer CTA showed no PE Venous Doppler showed no DVT COPD Tobacco use disorder Chronic oxygen dependency--on 3 L at bedtime 55 pack-year, active smoker at 1 pack daily-> Nicotine patch ordered Patient states that she quit smoking 2 days ago Respiratory status seems to be at baseline Continue home inhalers Continue supplemental oxygen at bedtime CAD Hyperlipidemia Continue Coreg, lisinopril, isosorbide, Crestor Resume aspirin as able Hypertension Blood pressure variable Continue Coreg, lisinopril, amlodipine IV hydralazine as needed Also on isosorbide DVT Px: SCDs for now Re: Hematuria Code status: DNR/DNI Disposition Acute rehab when medically stable (2) Accident due to mechanical fall without injury: (3) COPD (chronic obstructive pulmonary disease): (4) CAD (coronary artery disease): (5) Hyperlipidemia: (6) Anxiety and depression: Admission and Anticipated Discharge Date Admission Date: December 12, 2024 Subjective Patient is seen and examined at bedside Was delirious overnight, pulling lines Seem to be having hallucinations Oriented, cooperative during my encounter this morning Became agitated and combative later today noted by RN Reported transient dizziness this morning Denies any chest pain, dyspnea, abdominal pain Review of Systems Review of Systems: All systems reviewed & are unremarkable except as noted in Subjective Physical Exam Physical Exam: Physical Exam: Vitals signs as noted above General Appearance:Overweight, no apparent distress Head: normocephalic, Atraumatic Eyes: normal inspection, EOMI Neck: supple, Trachea midline Respiratory/Chest: Decreased breath sounds, CTA,+ mild tender, No accessory muscle use Cardiovascular: S1, S2, No murmur Abdomen/GI:Soft, Non tender, Bowel sounds present Extremities/Musculoskeletal:normal inspection, Trace edema Neurologic/Psych:AAOX3, grossly no focal neurological deficits Skin: normal color, warm Results & Data Results & Data Vital Signs (Past 12 Hours) Vital Signs Temp Pulse Pulse Resp BP BP Pulse Ox 12/16/24 11:14 37 C 69 18 120/77 93 12/16/24 10:09 90 12/16/24 08:09 36.9 C 86 18 179/110 H 197/125 H 91 O2 Del Method O2 Flow Rate 12/16/24 11:14 Nasal Cannula 3 12/16/24 10:09 12/16/24 08:09 Nasal Cannula 2 Laboratory Results Short CBC 12/16/24 Range/Units 00:57 WBC 8.08 (4.8-10.8) K/ul Hgb 15.0 (12.0-16.0) g/dl Hct 45.2 (37.0-47.0) % Plt Count 233 (130-400) K/uL (3) COPD (chronic obstructive pulmonary disease) COPD type: COPD with acute exacerbation Qualified Code(s): J44.1 - Chronic obstructive pulmonary disease with (acute) exacerbation (4) CAD (coronary artery disease) Coronary Disease-Associated Artery/Lesion type: [place] artery [place] vs. transplanted heart: [place] heart Associated angina: without angina Qualified Code(s): I25.10 - Atherosclerotic heart disease of [place] coronary artery without angina pectoris
[2024-12-17] MEDS ORDERED: MICONAZOLE NITRATE POWDER 85 GM EXT PRN (01:31)
[2024-12-17 06:52] LABS: Hematocrit (blood only) 45.9 % (37.0-47.0); Hemoglobin 14.9 g/dl (12.0-16.0); Mean Corpuscular Hemoglobin 31.9 pg (25.0-34.0); Mean Corpuscular Volume 98.3 fL (80.0-100.0); Platelet Count 215 K/uL (130-400); RDW Standard Deviation 52.2 fL (36.4-46.3); Red Blood Count 4.67 M/uL (4.20-5.40); White Blood Count 10.00 K/ul (4.8-10.8)
[2024-12-17 07:19] LABS: Anion Gap 7.0 (3-11); Blood Urea Nitrogen 16.0 mg/dl (6-23); Calcium 9.0 mg/dl (8.6-10.3); Carbon Dioxide 32.0 mmol/L (21-32); Chloride 105.0 mmol/L (98-107); Creatinine Clr Calc Pharmacy 86.0 ml/min; Glucose 109.0 mg/dl (70-99(Fasting)); Magnesium 2.2 mg/dl (1.7-2.4); Potassium 3.6 mmol/L (3.5-5.1); Sodium 144.0 mmol/L (136-145)
[2024-12-17] MEDS: LACTATED RINGER'S 1,000 ML IV SCH (08:59)
[2024-12-17 09:15] LABS: Alanine Aminotransferase 21.0 U/L (7-52); Albumin Level 3.8 gm/dl (3.4-5.0); Alkaline Phosphatase 54.0 U/L (34-104); Bilirubin,Total 0.8 mg/dl (0.2-1.0); Total Protein 6.2 gm/dl (6.0-8.3)
[2024-12-17] MEDS: THIAMINE HCL 500 MG in SODIUM CHLORIDE 0.9% 50 ML IV ONE (09:28)
[2024-12-17] MEDS: FOLIC ACID 1 MG in SYRINGE 9.8 ML IV SCH (09:28)
[2024-12-17 09:29] LABS: Thyroid Stimulating Hormone 5.507 uIu/ml (0.300-4.500)
[2024-12-17 10:13] LABS: T4 Free Thyroxine 0.84 ng/dl (0.61-1.60)
--- NOTE | 2024-12-17 11:27 | XRay Report ---
KUB HISTORY: for MRI COMPARISON STUDY: 01/10/2014 FINDINGS: There are multiple surgical clips at the right lower quadrant consistent with prior hernia repair. No other metallic medical technologist or metallic foreign body seen. There is moderate retained st ool. No bowel obstruction seen. IMPRESSION: There are multiple clips from prior hernia repair. No other metallic medical technologist or me tallic foreign body seen. ACT 112: Negative or not required by law. The above report was generated using voice recognition software. It may contain grammatical, syntax o r spelling errors. Electronically signed by: Juan Méndez M.D. 12/17/2024 11:25 AM
[2024-12-17] MEDS: GADOBUTROL 65ML VIAL IV ONE (13:10)
--- NOTE | 2024-12-17 13:20 | Magnetic Resonance Report ---
MRI OF THE BRAIN COMBO CLINICAL HISTORY: Change in mental status. COMPARISON STUDY: CT of the brain dated 12/16/2024. CT angiogram of the brain dated 10/20/2022. TECHNIQUE: MRI of the brain was performed utilizing various T1 and T2-weighted sequences in the axial , sagittal, and coronal planes. Contrast-enhanced sequences were acquired following the administratio n of 9.5 cc of Gadavist. FINDINGS: Brain parenchyma: There is age-related involutional change noting moderate to advanced subcortical an d periventricular microangiopathic disease. There is no hemorrhage or mass effect. There is no restri cted diffusion to suggest acute ischemia. No enhancing mass lesion is identified on the postcontrast images. 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 Garrett-white matter differentiation is preserved. No ex tra-axial fluid collection is seen. Mineralization is noted in the basal ganglia. The cerebellar tons ils are normal in configuration. Ventricles, sulci, and cisterns: Prominent secondary to involutional change. Pituitary and sella: Unremarkable. Intracranial vasculature: Normal flow voids are maintained at the skull base. Orbits: The bony orbits are grossly intact. Orbital contents are normal in appearance noting bilatera l ocular lens implants. Sinuses and mastoids: There is moderate mucosal thickening within the ethmoid and sphenoid sinuses. T he mastoid air cells appear clear. Calvarium: Unremarkable. Cervical cord: Partially visualized cervical spinal cord is normal in morphology and signal intensity . IMPRESSION: No acute intracranial abnormality. ACT 112: Negative or not required by law. Electronically signed by: Stevo Jackson M.D. 12/17/2024 1:18 PM
--- NOTE | 2024-12-17 17:49 | Hospitalist Progress Note ---
Date of Service December 17, 2024 Assessment & Plan (1) UTI (urinary tract infection): Plan: Patient is a 78 year old F with a past medical history of COPD, nocturnal hypoxia, CAD/CABG, history of atrial flutter, prediabetes, hypertension, hyperlipidemia, depression presenting with mechanical fall and possible syncope. Reportedly fell in the kitchen last night around 11pm, slipped on the floor and unable to get herself off the floor. Mechanical Fall Ambulatory dysfunction Generalized weakness Syncope -Imaging studies showed no signs of fractures -mechanical in nature per history Plan: -Continue PT OT, fall precautions -Case management to help with discharge plan -Plan to discharge to acute rehab when medically stable #Metabolic Encephalopathy #Hyperactive Delirium #R/o Psychosis -has hx of psychiatric decompensation per son -showing signs of superimposed psychiatric illness as well (based off of hallucinations) -no signs or symptoms of infection Plan: -MR brain unremarkable, ordered by this provider -start IV fluids -On chronic benzodiazepine -continue paroxetine -delirium precautions, avoid antipsychotics/restraints unless harm to self -will hold off on psychiatric consult until delirium is relatively controlled -downtitrate xanax to 0.75 mg at night given hyperactive delirium (25% reduction) Hematuria -resolved, Advised to follow-up with urology as outpatient for possible cystoscopy Acute bronchitis -stop doxy -no cough or symptoms of infection Constipation -Continue bowel regimen Elevated D-dimer -CTA showed no PE -Venous Doppler showed no DVT COPD Tobacco use disorder Chronic oxygen dependency--on 3 L at bedtime -55 pack-year, active smoker at 1 pack daily-> Nicotine patch ordered -Continue home inhalers -Continue supplemental oxygen at bedtime CAD Hyperlipidemia -Continue Coreg, lisinopril, isosorbide, Crestor -Resume aspirin as able Hypertension -Continue Coreg, lisinopril, amlodipine -Also on isosorbide Updated son on plan of care who was appreciate of the update and agreeable with plan. I spent a total of 50 minutes in direct patient care, including [id number] time with the patient and/or family, reviewing medical records, ordering and reviewing diagnostic tests, and coordinating care with other healthcare providers. This time includes: history taking, physical examination, medical decision making, counseling, ECG interpretation, imaging interpretation, lab interpretation, orders, and education, excluding time spent in the performance of separately billed services. (2) Accident due to mechanical fall without injury: (3) COPD (chronic obstructive pulmonary disease): (4) CAD (coronary artery disease): (5) Hyperlipidemia: (6) Anxiety and depression: Admission and Anticipated Discharge Date Admission Date: December 12, 2024 Subjective Patient seen and examined at bedside. Patient not very responsive this morning, but with fluids and sitting up in bed doing much better. Orriented to person and place not time. Review of Systems Review of Systems: -unable to answer a ROS due to mental st atus Physical Exam Physical Exam: Gen: A&O 2 NAD HEENT: NCAT, EOMI, not icteric. External ears normal. No rhinorrhea. Moist mucous membranes. Neck: Supple, full range of motion, no observable masses, No meningeal sign. Lungs: No Respiratory distress. CV: RRR, no edema. Abdomen: Soft, nondistended, No rebound tenderness. MSK: No joint swelling, no redness. Skin: No rashes, petechiae, lesions. Normal color per patient. Neuro: moving all extremities Psych: fidgeting, appear to have delirium Results & Data Results & Data Vital Signs (Past 12 Hours) Vital Signs Temp Pulse Pulse Resp BP Pulse Ox O2 Del Method 12/17/24 15:41 36.2 C L 69 16 138/81 96 Room Air 12/17/24 11:06 36.8 C 66 16 159/85 H 94 Nasal Cannula 12/17/24 10:48 Nasal Cannula 12/17/24 07:58 36.9 C 67 16 153/86 H 97 Room Air 12/17/24 07:10 81 O2 Flow Rate 12/17/24 15:41 12/17/24 11:06 3 12/17/24 10:48 12/17/24 07:58 12/17/24 07:10 Laboratory Results -personally reviewed, very mildly elevated (close to normal age adjusted) CRP/ESR not suggestive of underlying infectious process, creatinine at baseline Medications Administered Acetaminophen (Acetaminophen 325 Mg Tab) 650 mg PO Q4H PRN PRN Reason: Pain or Fever Stop: 01/11/25 14:52 Last Admin: 12/13/24 01:19 Dose: 650 mg Documented By: Admin: 12/12/24 20:08 Dose: 650 mg Documented By: Admin: 12/12/24 15:23 Dose: 650 mg Documented By: ANA Albuterol (Albuterol Hfa 8 Gm Inhaler) 2 puffs INH Q6H PRN PRN Reason: SHORT OF BREATH Stop: 01/11/25 12:33 Last Admin: 12/12/24 13:12 Dose: 2 puffs Documented By: ANA Alprazolam (Alprazolam 0.5 Mg Tablet) 1 mg PO HS [facility] Stop: 01/11/25 20:59 Last Admin: 12/16/24 19:13 Dose: 1 mg Documented By: Admin: 12/15/24 21:43 Dose: Not Given Documented By: Admin: 12/14/24 20:27 Dose: 1 mg Documented By: kassy Admin: 12/13/24 20:27 Dose: 1 mg Documented By: Admin: 12/12/24 20:10 Dose: 1 mg Documented By: LUIS Amlodipine Besylate ([facility]ipine Besylate 5 Mg Tab) [facility] Stop: 01/12/25 13:14 Last Admin: 12/17/24 09:29 Dose: Not Given Documented By: JOSE R Admin: 12/14/24 08:40 Dose: 5 mg Documented By: alexandre Admin: 12/13/24 13:23 Dose: 5 mg Documented By: alexandre Aspirin (Aspirin 81 Mg Ectab) [facility] [place] Stop: 01/13/25 11:29 Last Admin: 12/17/24 09:29 Dose: Not Given Documented By: JOSE R Admin: 12/16/24 08:32 Dose: 81 mg Documented By: Admin: 12/15/24 08:30 Dose: 81 mg Documented By: Admin: 12/14/24 11:37 Dose: 81 mg Documented By: alexandre Carvedilol (Carvedilol 3.125 Mg Tab) 3.125 mg PO BID [facility] Stop: 01/11/25 20:59 Last Admin: 12/17/24 09:29 Dose: Not Given Documented By: JOSE R Admin: 12/16/24 20:12 Dose: 3.125 mg Documented By: Admin: 12/16/24 08:30 Dose: 3.125 mg Documented By: Admin: 12/15/24 21:43 Dose: Not Given Documented By: Admin: 12/15/24 08:32 Dose: 3.125 mg Documented By: Admin: 12/14/24 20:26 Dose: 3.125 mg Documented By: kassy Admin: 12/14/24 08:39 Dose: 3.125 mg Documented By: alexandre Admin: 12/13/24 20:27 Dose: 3.125 mg Documented By: Admin: 12/13/24 09:12 Dose: 3.125 mg Documented By: alexandre Admin: 12/12/24 20:10 Dose: 3.125 mg Documented By: LUIS Cefuroxime Axetil (Cefuroxime Axetil 250 Mg Tablet) 250 mg PO BID [facility] Stop: 12/19/24 08:59 Last Admin: 12/17/24 09:29 Dose: Not Given Documented By: JOSE R Admin: 12/16/24 20:16 Dose: Not Given Documented By: Admin: 12/16/24 08:29 Dose: 250 mg Documented By: TAHIRA Cyanocobalamin (Cyanocobalamin (B-12) 500 Mcg Tablet) 1,000 mcg PO HS [facility] Stop: 01/11/25 20:59 Last Admin: 12/16/24 20:16 Dose: Not Given Documented By: Admin: 12/15/24 21:44 Dose: Not Given Documented By: Admin: 12/14/24 20:25 Dose: 1,000 mcg Documented By: kassy Admin: 12/13/24 20:28 Dose: 1,000 mcg Documented By: Admin: 12/12/24 20:11 Dose: 1,000 mcg Documented By: LUIS Docusate Sodium (Docusate Sodium 100 Mg Cap) 100 mg PO BID [facility] Stop: 01/11/25 20:59 Last Admin: 12/17/24 09:29 Dose: Not Given Documented By: JOSE R Admin: 12/16/24 20:16 Dose: Not Given Documented By: Admin: 12/16/24 08:41 Dose: 100 mg Documented By: Admin: 12/15/24 21:44 Dose: Not Given Documented By: Admin: 12/15/24 08:37 Dose: 100 mg Documented By: Admin: 12/14/24 20:27 Dose: 100 mg Documented By: kassy Admin: 12/14/24 08:39 Dose: 100 mg Documented By: alexandre Admin: 12/13/24 20:26 Dose: 100 mg Documented By: Admin: 12/13/24 09:11 Dose: 100 mg Documented By: alexandre Admin: 12/12/24 20:08 Dose: 100 mg Documented By: LUSI Doxycycline Hyclate (Doxycycline Hyclate 100 Mg Cap) 100 mg PO BID [facility] Stop: 12/19/24 11:29 Last Admin: 12/17/24 09:29 Dose: Not Given Documented By: JOSE R Admin: 12/16/24 20:12 Dose: 100 mg Documented By: Admin: 12/16/24 08:30 Dose: 100 mg Documented By: Admin: 12/15/24 21:44 Dose: Not Given Documented By: Admin: 12/15/24 08:30 Dose: 100 mg Documented By: Admin: 12/14/24 20:25 Dose: 100 mg Documented By: kassy Admin: 12/14/24 11:42 Dose: 100 mg Documented By: alexandre Enoxaparin Sodium (Enoxaparin Inj 40 Mg/0.4 Ml Syr) 40 mg SQ Q24H [facility] Stop: 01/11/25 15:29 Last Admin: 12/12/24 15:26 Dose: 40 mg Documented By: ANA Fluticasone/Vilanterol (Fluticasone/Vilanterol 100/25mcg 14 Puffs/Inhaler) 1 puffs INH QAM [facility] Stop: 01/11/25 12:44 Last Admin: 12/17/24 09:29 Dose: Not Given Documented By: JOSE R Admin: 12/16/24 08:34 Dose: 1 puffs Documented By: Admin: 12/15/24 08:35 Dose: 1 puffs Documented By: Admin: 12/14/24 08:40 Dose: 1 puffs Documented By: alexandre Admin: 12/13/24 10:43 Dose: 1 puffs Documented By: alexandre Admin: 12/12/24 13:33 Dose: 1 puffs Documented By: ANA Lactated Ringer's (Lr) 1,000 mls @ 100 mls/hr IV .Q10H [facility] Stop: 12/18/24 00:00 Last Admin: 12/17/24 08:59 Dose: 100 mls/hr Documented By: TRAE Folic Acid 1 mg/ Syringe 10 mls @ 5 mls/min IV QAM [facility] Stop: 01/16/25 08:59 Last Admin: 12/17/24 09:28 Dose: 5 mls/min Documented By: JOSE R Isosorbide Mononitrate (Isosorbide [place] Extended Rel 60 Mg Tabcr) 60 mg PO QAM [facility] Stop: 01/12/25 08:59 Last Admin: 12/17/24 09:29 Dose: Not Given Documented By: JOSE R Admin: 12/16/24 08:32 Dose: 60 mg Documented By: Admin: 12/15/24 08:33 Dose: 60 mg Documented By: Admin: 12/14/24 08:39 Dose: 60 mg Documented By: alexandre Admin: 12/13/24 09:11 Dose: 60 mg Documented By: alexandre Lisinopril (Lisinopril 40 Mg Tab) 40 mg PO QAM [facility] Stop: 01/12/25 08:59 Last Admin: 12/17/24 09:29 Dose: Not Given Documented By: JOSE R Admin: 12/16/24 08:32 Dose: 40 mg Documented By: Admin: 12/15/24 08:33 Dose: 40 mg Documented By: Admin: 12/14/24 08:39 Dose: 40 mg Documented By: alexandre Admin: 12/13/24 09:12 Dose: 40 mg Documented By: alexandre Miscellaneous (Remove Nicoderm Patch) 1 each N/A DAILY@0859 [facility] Stop: 01/12/25 08:58 Last Admin: 12/17/24 09:29 Dose: Not Given Documented By: JOSE R Admin: 12/16/24 08:33 Dose: 1 each Documented By: Admin: 12/15/24 08:35 Dose: 1 each Documented By: Admin: 12/14/24 09:32 Dose: 1 each Documented By: alexandre Admin: 12/13/24 10:16 Dose: 1 each Documented By: alexandre Nicotine (Nicotine 14 Mg/24 Hr Patch) 1 patch TD QAM [facility] Stop: 01/11/25 11:59 Last Admin: 12/17/24 09:28 Dose: 1 patch Documented By: JOSE R Admin: 12/16/24 08:33 Dose: 1 patch Documented By: Admin: 12/15/24 08:33 Dose: 1 patch Documented By: Admin: 12/14/24 08:40 Dose: 1 patch Documented By: alexandre Admin: 12/13/24 10:43 Dose: 1 patch Documented By: alexandre Admin: 12/12/24 12:17 Dose: 1 patch Documented By: ANA Ondansetron HCl (Ondansetron Inj 2 Mg/Ml 2 Ml Vial) 4 mg IV Q6H PRN PRN Reason: Nausea Stop: 01/11/25 14:52 Last Admin: 12/13/24 15:31 Dose: 4 mg Documented By: MARIA ELENA Admin: 12/13/24 09:39 Dose: 4 mg Documented By: alexandre Paroxetine HCl (Paroxetine Hcl 20 Mg Tab) 60 mg PO DAILY [facility] Stop: 01/12/25 08:59 Last Admin: 12/17/24 09:29 Dose: Not Given Documented By: JOSE R Admin: 12/16/24 08:30 Dose: 60 mg Documented By: Admin: 12/15/24 08:31 Dose: 60 mg Documented By: Admin: 12/14/24 08:39 Dose: 60 mg Documented By: alexandre Admin: 12/13/24 09:12 Dose: 60 mg Documented By: alexandre Rosuvastatin Calcium (Rosuvastatin Calcium 20 Mg Tab) 40 mg PO HS [facility] Stop: 01/11/25 20:59 Last Admin: 12/16/24 20:16 Dose: Not Given Documented By: Admin: 12/15/24 21:44 Dose: Not Given Documented By: Admin: 12/14/24 20:26 Dose: 40 mg Documented By: kassy Admin: 12/13/24 20:28 Dose: 40 mg Documented By: Admin: 12/12/24 20:11 Dose: 40 mg Documented By: LUIS Umeclidinium [place] (Umeclidinium [place] 62.5mcg/Blister 7 Puffs/Inhaler) 1 puffs INH DAILY [facility] Stop: 01/11/25 12:44 Last Admin: 12/17/24 09:29 Dose: Not Given Documented By: JOSE R Admin: 12/16/24 08:34 Dose: 1 puffs Documented By: Admin: 12/15/24 08:35 Dose: 1 puffs Documented By: Admin: 12/14/24 08:40 Dose: 1 puffs Documented By: alexandre Admin: 12/13/24 10:43 Dose: 1 puffs Documented By: alexandre Admin: 12/12/24 13:32 Dose: 1 puffs Documented By: ANA (3) COPD (chronic obstructive pulmonary disease) COPD type: COPD with acute exacerbation Qualified Code(s): J44.1 - Chronic obstructive pulmonary disease with (acute) exacerbation (4) CAD (coronary artery disease) Coronary Disease-Associated Artery/Lesion type: [place] artery [place] vs. transplanted heart: [place] heart Associated angina: without angina Qualified Code(s): I25.10 - Atherosclerotic heart disease of [place] coronary artery without angina pectoris
[2024-12-17] MEDS: OLANZAPINE 2.5 MG TAB PO SCH (20:10)
[2024-12-17] MEDS: MELATONIN 3 MG TAB PO PRN (21:41)
[2024-12-18 07:42] LABS: Hematocrit (blood only) 43.4 % (37.0-47.0); Hemoglobin 14.6 g/dl (12.0-16.0); Mean Corpuscular Hemoglobin 33.6 pg (25.0-34.0); Mean Corpuscular Volume 100.0 fL (80.0-100.0); Platelet Count 222 K/uL (130-400); RDW Standard Deviation 53.6 fL (36.4-46.3); Red Blood Count 4.34 M/uL (4.20-5.40); White Blood Count 8.38 K/ul (4.8-10.8)
[2024-12-18 08:37] LABS: Alanine Aminotransferase 20.0 U/L (7-52); Albumin Globulin Ratio 1.4 (0.9-2); Albumin Level 3.3 gm/dl (3.4-5.0); Alkaline Phosphatase 50.0 U/L (34-104); Anion Gap 4.0 (3-11); Bilirubin,Total 0.7 mg/dl (0.2-1.0); Blood Urea Nitrogen 20.0 mg/dl (6-23); Calcium 8.8 mg/dl (8.6-10.3); Carbon Dioxide 33.0 mmol/L (21-32); Chloride 107.0 mmol/L (98-107); Creatinine Clr Calc Pharmacy 90.2 ml/min; Globulin 2.3 gm/dl (2.5-4.0); Glucose 107.0 mg/dl (70-99(Fasting)); Magnesium 2.0 mg/dl (1.7-2.4); Potassium 3.8 mmol/L (3.5-5.1); Sodium 144.0 mmol/L (136-145); Total Protein 5.6 gm/dl (6.0-8.3)
[2024-12-18] MEDS: THIAMINE HCL 100 MG in SYRINGE 9 ML IV SCH (08:50)
--- NOTE | 2024-12-18 12:26 | Psychiatric Consultation ---
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 Syr) 40 mg SQ Q24H HUSSEIN Stop: 01/11/25 15:29 Last Admin: 12/12/24 15:26 Dose: 40 mg Documented By: ANA Fluticasone/Vilanterol (Fluticasone/Vilanterol 100/25mcg 14 Puffs/Inhaler) 1 puffs INH QAM HUSSEIN Stop: 01/11/25 12:44 Last Admin: 12/18/24 08:50 Dose: 1 puffs Documented By: Admin: 12/17/24 09:29 Dose: Not Given Documented By: JOSE R Admin: 12/16/24 08:34 Dose: 1 puffs Documented By: Admin: 12/15/24 08:35 Dose: 1 puffs Documented By: Admin: 12/14/24 08:40 Dose: 1 puffs Documented By: alexandre Admin: 12/13/24 10:43 Dose: 1 puffs Documented By: alexandre Admin: 12/12/24 13:33 Dose: 1 puffs Documented By: ANA Thiamine HCl 100 mg/ Syringe 10 mls @ 2 mls/min IV QAM [facility] Stop: 01/17/25 08:59 Last Admin: 12/18/24 08:50 Dose: 2 mls/min Documented By: PRESLEY Folic Acid 1 mg/ Syringe 10 mls @ 5 mls/min IV QAM [facility] Stop: 01/16/25 08:59 Last Admin: 12/18/24 08:50 Dose: 5 mls/min Documented By: Admin: 12/17/24 09:28 Dose: 5 mls/min Documented By: JOSE R Isosorbide Mononitrate (Isosorbide [place] Extended Rel 60 Mg Tabcr) 60 mg PO QAM [facility] Stop: 01/12/25 08:59 Last Admin: 12/18/24 08:49 Dose: 60 mg Documented By: Admin: 12/17/24 09:29 Dose: Not Given Documented By: JOSE R Admin: 12/16/24 08:32 Dose: 60 mg Documented By: Admin: 12/15/24 08:33 Dose: 60 mg Documented By: Admin: 12/14/24 08:39 Dose: 60 mg Documented By: alexandre Admin: 12/13/24 09:11 Dose: 60 mg Documented By: alexandre Lisinopril (Lisinopril 40 Mg Tab) [facility] [place] [facility] [place]: 01/12/25 08:59 Last Admin: 12/18/24 08:49 Dose: 40 mg Documented By: Admin: 12/17/24 09:29 Dose: Not Given Documented By: JOSE R Admin: 12/16/24 08:32 Dose: 40 mg Documented By: Admin: 12/15/24 08:33 Dose: 40 mg Documented By: Admin: 12/14/24 08:39 Dose: 40 mg Documented By: alexandre Admin: 12/13/24 09:12 Dose: 40 mg Documented By: alexandre Melatonin (Melatonin 3 Mg Tab) 6 mg PO HS PRN PRN Reason: Sleep Stop: 01/16/25 20:29 Last Admin: 12/17/24 21:41 Dose: 6 mg Documented By: MED Miscellaneous (Remove Nicoderm Patch) 1 each N/A DAILY@0859 [facility] Stop: 01/12/25 08:58 Last Admin: 12/18/24 08:50 Dose: 1 each Documented By: Admin: 12/17/24 09:29 Dose: Not Given Documented By: JOSE R Admin: 12/16/24 08:33 Dose: 1 each Documented By: Admin: 12/15/24 08:35 Dose: 1 each Documented By: Admin: 12/14/24 09:32 Dose: 1 each Documented By: alexandre Admin: 12/13/24 10:16 Dose: 1 each Documented By: alexandre Nicotine (Nicotine 14 Mg/24 Hr Patch) 1 patch TD QAM [facility]US[facility]IN Stop: 01/11/25 11:59 Last Admin: 12/18/24 08:50 Dose: 1 patch Documented By: Admin: 12/17/24 09:28 Dose: 1 patch Documented By: JOSE R Admin: 12/16/24 08:33 Dose: 1 patch Documented By: Admin: 12/15/24 08:33 Dose: 1 patch Documented By: Admin: 12/14/24 08:40 Dose: 1 patch Documented By: alexandre Admin: 12/13/24 10:43 Dose: 1 patch Documented By: alexandre Admin: 12/12/24 12:17 Dose: 1 patch Documented By: ANA Olanzapine (Olanzapine 2.5 Mg Tab) 2.5 mg PO HS [facility] Stop: 01/16/25 20:59 Last Admin: 12/17/24 20:10 Dose: 2.5 mg Documented By: hui Ondansetron HCl (Ondansetron Inj 2 Mg/Ml 2 Ml Vial) 4 mg IV Q6H PRN PRN Reason: Nausea Stop: 01/11/25 14:52 Last Admin: 12/13/24 15:31 Dose: 4 mg Documented By: MARIA ELENA Admin: 12/13/24 09:39 Dose: 4 mg Documented By: alexandre Paroxetine HCl (Paroxetine Hcl 20 Mg Tab) 60 mg PO DAILY [facility]US[facility]IN Stop: 01/12/25 08:59 Last Admin: 12/18/24 08:49 Dose: 60 mg Documented By: Admin: 12/17/24 09:29 Dose: Not Given Documented By: JOSE R Admin: 12/16/24 08:30 Dose: 60 mg Documented By: Admin: 12/15/24 08:31 Dose: 60 mg Documented By: Admin: 12/14/24 08:39 Dose: 60 mg Documented By: alexandre Admin: 12/13/24 09:12 Dose: 60 mg Documented By: alexandre Rosuvastatin Calcium (Rosuvastatin Calcium 20 Mg Tab) 40 mg PO HS [facility] Stop: 01/11/25 20:59 Last Admin: 12/17/24 20:08 Dose: 40 mg Documented By: hui Admin: 12/16/24 20:16 Dose: Not Given Documented By: Admin: 12/15/24 21:44 Dose: Not Given Documented By: Admin: 12/14/24 20:26 Dose: 40 mg Documented By: kassy Admin: 12/13/24 20:28 Dose: 40 mg Documented By: Admin: 12/12/24 20:11 Dose: 40 mg Documented By: LUIS Umeclidinium [place] (Umeclidinium [place] 62.5mcg/Blister 7 Puffs/Inhaler) 1 puffs INH DAILY [facility] Stop: 01/11/25 12:44 Last Admin: 12/18/24 08:50 Dose: 1 puffs Documented By: Admin: 12/17/24 09:29 Dose: Not Given Documented By: JOSE R Admin: 12/16/24 08:34 Dose: 1 puffs Documented By: Admin: 12/15/24 08:35 Dose: 1 puffs Documented By: Admin: 12/14/24 08:40 Dose: 1 puffs Documented By: alexandre Admin: 12/13/24 10:43 Dose: 1 puffs Documented By: alexandre Admin: 12/12/24 13:32 Dose: 1 puffs Documented By: ANA Coding Level of Care Code 89844 [facility] Int Hosp Care Lvl 3 Medical Decision Making High Complexity Diagnoses Delirium due to multiple etiologies, acute, hyperactive F05 Delusional disorder, persecutory type F22 Depression F32.9 Generalized anxiety disorder F41.1
--- NOTE | 2024-12-18 14:30 | Hospitalist Progress Note ---
Date of Service December 18, 2024 Assessment & Plan (1) UTI (urinary tract infection): Plan: Patient is a 78 year old F with a past medical history of COPD, nocturnal hypoxia, CAD/CABG, history of atrial flutter, prediabetes, hypertension, hyperlipidemia, depression presenting with mechanical fall and possible syncope. Reportedly fell in the kitchen last night around 11pm, slipped on the floor and unable to get herself off the floor. Mechanical Fall Ambulatory dysfunction Generalized weakness Syncope -Imaging studies showed no signs of fractures -mechanical in nature per history Plan: -Continue PT OT, fall precautions -Case management to help with discharge plan -Plan to discharge to acute rehab when medically stable #Metabolic Encephalopathy #Hyperactive Delirium #R/o Psychosis -has hx of psychiatric decompensation per son -showing signs of superimposed psychiatric illness as well (based off of hallucinations) -no signs or symptoms of infection -improving mental status today, MR head unremarkable Plan: -MR brain unremarkable, ordered by this provider -hold IV fluids for now, now that taking PO -continue zyprexa 2.5mg PO at nighttime, appears to have helped -continue paroxetine -delirium precautions, avoid antipsychotics/restraints unless harm to self -downtitrate xanax to 0.75 mg at night given hyperactive delirium (25% reduction) -psych consult, appreciate recs Hematuria -resolved, Advised to follow-up with urology as outpatient for possible cystoscopy Acute bronchitis -stop doxy -no cough or symptoms of infection Constipation -Continue bowel regimen Elevated D-dimer -CTA showed no PE -Venous Doppler showed no DVT COPD Tobacco use disorder Chronic oxygen dependency--on 3 L at bedtime -55 pack-year, active smoker at 1 pack daily-> Nicotine patch ordered -Continue home inhalers -Continue supplemental oxygen at bedtime CAD Hyperlipidemia -Continue Coreg, lisinopril, isosorbide, Crestor -Resume aspirin as able Hypertension -Continue Coreg, lisinopril, amlodipine -Also on isosorbide Updated son on plan of care who was appreciate of the update and agreeable with plan. I spent a total of 50 minutes in direct patient care, including [id number] time with the patient and/or family, reviewing medical records, ordering and reviewing diagnostic tests, and coordinating care with other healthcare providers. This time includes: history taking, physical examination, medical decision making, counseling, ECG interpretation, imaging interpretation, lab interpretation, orders, and education, excluding time spent in the performance of separately billed services. (2) Accident due to mechanical fall without injury: (3) COPD (chronic obstructive pulmonary disease): (4) CAD (coronary artery disease): (5) Hyperlipidemia: (6) Anxiety and depression: Admission and Anticipated Discharge Date Admission Date: December 12, 2024 Subjective Patient seen and examined at bedside. More responsive today. States she feels confused and is scared by what is going on. Review of Systems Review of Systems: CONSTITUTIONAL: scared, anxious EYES: Patient denies any visual symptoms. EARS, NOSE, AND THROAT: No difficulties with hearing. No symptoms of rhinitis or sore throat. CARDIOVASCULAR: Patient denies chest pains, palpitations, orthopnea and paroxysmal nocturnal dyspnea. RESPIRATORY: No dyspnea on exertion, no wheezing or cough. GI: No nausea, vomiting, diarrhea, constipation, abdominal pain, hematochezia or melena. : No urinary hesitancy or dribbling. No nocturia or urinary frequency. No abnormal urethral discharge. MUSCULOSKELETAL: No myalgias or arthralgias. NEUROLOGIC: No chronic headaches, no seizures. Patient denies numbness, tingling or weakness. PSYCHIATRIC: Patient denies problems with mood disturbance. No problems with anxiety. ENDOCRINE: No excessive urination or excessive thirst. DERMATOLOGIC: Patient denies any rashes or skin changes. Physical Exam Physical Exam: Gen: A&O 2 NAD HEENT: NCAT, EOMI, not icteric. External ears normal. No rhinorrhea. Moist mucous membranes. Neck: Supple, full range of motion, no observable masses, No meningeal sign. Lungs: No Respiratory distress. CV: RRR, no edema. Abdomen: Soft, nondistended, No rebound tenderness. MSK: No joint swelling, no redness. Skin: No rashes, petechiae, lesions. Normal color per patient. Neuro: moving all extremities Psych: fidgeting, appear to have delirium, improved from yesterday more interactive Results & Data Results & Data Vital Signs (Past 12 Hours) Vital Signs Temp Pulse Pulse Resp BP Pulse Ox O2 Del Method 12/18/24 11:36 36.8 C 62 16 105/71 90 Nasal Cannula 12/18/24 09:00 Nasal Cannula 12/18/24 08:07 36.5 C 61 16 175/117 H 90 Room Air 12/18/24 07:25 66 12/18/24 03:31 36.9 C 54 L 16 121/74 95 Nasal Cannula O2 Flow Rate 12/18/24 11:36 2 12/18/24 09:00 2 12/18/24 08:07 12/18/24 07:25 12/18/24 03:31 2 Laboratory Results -personally reviewed, no leukocytosis, creatinine at baseline Medications Administered Acetaminophen (Acetaminophen 325 Mg Tab) 650 mg PO Q4H PRN PRN Reason: Pain or Fever Stop: 01/11/25 14:52 Last Admin: 12/18/24 09:04 Dose: 650 mg Documented By: Admin: 12/17/24 20:07 Dose: 650 mg Documented By: hui Admin: 12/13/24 01:19 Dose: 650 mg Documented By: Admin: 12/12/24 20:08 Dose: 650 mg Documented By: Admin: 12/12/24 15:23 Dose: 650 mg Documented By: ANA Albuterol (Albuterol Hfa 8 Gm Inhaler) 2 puffs INH Q6H PRN PRN Reason: SHORT OF BREATH Stop: 01/11/25 12:33 Last Admin: 12/12/24 13:12 Dose: 2 puffs Documented By: ANA Alprazolam (Alprazolam 0.25 Mg Tablet) 0.75 mg PO [facility] Stop: 01/16/25 20:59 Last Admin: 12/17/24 21:41 Dose: 0.75 mg Documented By: HOWARD Amlodipine Besylate (Amlodipine Besylate 5 Mg Tab) 5 mg PO [facility] Stop: 01/12/25 13:14 Last Admin: 12/18/24 08:50 Dose: 5 mg Documented By: Admin: 12/17/24 09:29 Dose: Not Given Documented By: JOSE R Admin: 12/14/24 08:40 Dose: 5 mg Documented By: alexandre Admin: 12/13/24 13:23 Dose: 5 mg Documented By: alexandre Aspirin (Aspirin 81 Mg Ectab) 81 mg PO [facility] Stop: 01/13/25 11:29 Last Admin: 12/18/24 08:50 Dose: 81 mg Documented By: Admin: 12/17/24 09:29 Dose: Not Given Documented By: JOSE R Admin: 12/16/24 08:32 Dose: 81 mg Documented By: Admin: 12/15/24 08:30 Dose: 81 mg Documented By: Admin: 12/14/24 11:37 Dose: 81 mg Documented By: alexandre Carvedilol (Carvedilol 3.125 Mg Tab) 3.125 mg PO BID HUSSEIN Stop: 01/11/25 20:59 Last Admin: 12/18/24 08:49 Dose: 3.125 mg Documented By: Admin: 12/17/24 20:09 Dose: 3.125 mg Documented By: hui Admin: 12/17/24 09:29 Dose: Not Given Documented By: JOSE R Admin: 12/16/24 20:12 Dose: 3.125 mg Documented By: Admin: 12/16/24 08:30 Dose: 3.125 mg Documented By: Admin: 12/15/24 21:43 Dose: Not Given Documented By: Admin: 12/15/24 08:32 Dose: 3.125 mg Documented By: Admin: 12/14/24 20:26 Dose: 3.125 mg Documented By: kassy Admin: 12/14/24 08:39 Dose: 3.125 mg Documented By: alexandre Admin: 12/13/24 20:27 Dose: 3.125 mg Documented By: Admin: 12/13/24 09:12 Dose: 3.125 mg Documented By: alexandre Admin: 12/12/24 20:10 Dose: 3.125 mg Documented By: LUIS Cyanocobalamin (Cyanocobalamin (B-12) 500 Mcg Tablet) 1,000 mcg PO HS [facility]IN Stop: 01/11/25 20:59 Last Admin: 12/17/24 20:10 Dose: 1,000 mcg Documented By: hui Admin: 12/16/24 20:16 Dose: Not Given Documented By: Admin: 12/15/24 21:44 Dose: Not Given Documented By: Admin: 12/14/24 20:25 Dose: 1,000 mcg Documented By: kassy Admin: 12/13/24 20:28 Dose: 1,000 mcg Documented By: Admin: 12/12/24 20:11 Dose: 1,000 mcg Documented By: LUIS Docusate Sodium (Docusate Sodium 100 Mg Cap) 100 mg PO BID HUSSEIN Stop: 01/11/25 20:59 Last Admin: 12/18/24 08:49 Dose: 100 mg Documented By: Admin: 12/17/24 20:09 Dose: 100 mg Documented By: hui Admin: 12/17/24 09:29 Dose: Not Given Documented By: JOSE R Admin: 12/16/24 20:16 Dose: Not Given Documented By: Admin: 12/16/24 08:41 Dose: 100 mg Documented By: Admin: 12/15/24 21:44 Dose: Not Given Documented By: Admin: 12/15/24 08:37 Dose: 100 mg Documented By: Admin: 12/14/24 20:27 Dose: 100 mg Documented By: kassy Admin: 12/14/24 08:39 Dose: 100 mg Documented By: alexandre Admin: 12/13/24 20:26 Dose: 100 mg Documented By: Admin: 12/13/24 09:11 Dose: 100 mg Documented By: alexandre Admin: 12/12/24 20:08 Dose: 100 mg Documented By: LUIS Enoxaparin Sodium (Enoxaparin Inj 40 Mg/0.4 Ml Syr) 40 mg SQ Q24H [facility] Stop: 01/11/25 15:29 Last Admin: 12/12/24 15:26 Dose: 40 mg Documented By: ANA Fluticasone/Vilanterol (Fluticasone/Vilanterol 100/25mcg 14 Puffs/Inhaler) 1 puffs INH QAM [facility] Stop: 01/11/25 12:44 Last Admin: 12/18/24 08:50 Dose: 1 puffs Documented By: Admin: 12/17/24 09:29 Dose: Not Given Documented By: JOSE R Admin: 12/16/24 08:34 Dose: 1 puffs Documented By: Admin: 12/15/24 08:35 Dose: 1 puffs Documented By: Admin: 12/14/24 08:40 Dose: 1 puffs Documented By: alexandre Admin: 12/13/24 10:43 Dose: 1 puffs Documented By: alexandre Admin: 12/12/24 13:33 Dose: 1 puffs Documented By: ANA Isosorbide Mononitrate (Isosorbide [place] Extended Rel 60 Mg Tabcr) [facility] [place] Stop: 01/12/25 08:59 Last Admin: 12/18/24 08:49 Dose: 60 mg Documented By: Admin: 12/17/24 09:29 Dose: Not Given Documented By: JOSE R Admin: 12/16/24 08:32 Dose: 60 mg Documented By: Admin: 12/15/24 08:33 Dose: 60 mg Documented By: Admin: 12/14/24 08:39 Dose: 60 mg Documented By: alexandre Admin: 12/13/24 09:11 Dose: 60 mg Documented By: alexandre Lisinopril (Lisinopril 40 Mg Tab) 40 mg PO [facility] Stop: 01/12/25 08:59 Last Admin: 12/18/24 08:49 Dose: 40 mg Documented By: Admin: 12/17/24 09:29 Dose: Not Given Documented By: JOSE R Admin: 12/16/24 08:32 Dose: 40 mg Documented By: Admin: 12/15/24 08:33 Dose: 40 mg Documented By: Admin: 12/14/24 08:39 Dose: 40 mg Documented By: alexandre Admin: 12/13/24 09:12 Dose: 40 mg Documented By: alexandre Melatonin (Melatonin 3 Mg Tab) 6 mg PO HS PRN PRN Reason: Sleep Stop: 01/16/25 20:29 Last Admin: 12/17/24 21:41 Dose: 6 mg Documented By: HOWARD Miscellaneous (Remove Nicoderm Patch) 1 each N/A DAILY@0859 [facility] [place] Stop: 01/12/25 08:58 Last Admin: 12/18/24 08:50 Dose: 1 each Documented By: Admin: 12/17/24 09:29 Dose: Not Given Documented By: JOSE R Admin: 12/16/24 08:33 Dose: 1 each Documented By: Admin: 12/15/24 08:35 Dose: 1 each Documented By: Admin: 12/14/24 09:32 Dose: 1 each Documented By: alexandre Admin: 12/13/24 10:16 Dose: 1 each Documented By: alexandre Nicotine (Nicotine 14 Mg/24 Hr Patch) 1 patch TD [facility] Stop: 01/11/25 11:59 Last Admin: 12/18/24 08:50 Dose: 1 patch Documented By: Admin: 12/17/24 09:28 Dose: 1 patch Documented By: JOS ER Admin: 12/16/24 08:33 Dose: 1 patch Documented By: Admin: 12/15/24 08:33 Dose: 1 patch Documented By: Admin: 12/14/24 08:40 Dose: 1 patch Documented By: alexandre Admin: 12/13/24 10:43 Dose: 1 patch Documented By: alexandre Admin: 12/12/24 12:17 Dose: 1 patch Documented By: ANA Olanzapine (Olanzapine 2.5 Mg Tab) 2.5 mg PO HS [facility] Stop: 01/16/25 20:59 Last Admin: 12/17/24 20:10 Dose: 2.5 mg Documented By: hui Ondansetron HCl (Ondansetron Inj 2 Mg/Ml 2 Ml Vial) 4 mg IV Q6H PRN PRN Reason: Nausea Stop: 01/11/25 14:52 Last Admin: 12/13/24 15:31 Dose: 4 mg Documented By: MARIA ELENA Admin: 12/13/24 09:39 Dose: 4 mg Documented By: alexandre Paroxetine HCl (Paroxetine Hcl 20 Mg Tab) 60 mg PO DAILY [facility] Stop: 01/12/25 08:59 Last Admin: 12/18/24 08:49 Dose: 60 mg Documented By: Admin: 12/17/24 09:29 Dose: Not Given Documented By: JOSE R Admin: 12/16/24 08:30 Dose: 60 mg Documented By: Admin: 12/15/24 08:31 Dose: 60 mg Documented By: Admin: 12/14/24 08:39 Dose: 60 mg Documented By: alexandre Admin: 12/13/24 09:12 Dose: 60 mg Documented By: alexandre Rosuvastatin Calcium (Rosuvastatin Calcium 20 Mg Tab) 40 mg PO HS [facility] Stop: 01/11/25 20:59 Last Admin: 12/17/24 20:08 Dose: 40 mg Documented By: hui Admin: 12/16/24 20:16 Dose: Not Given Documented By: Admin: 12/15/24 21:44 Dose: Not Given Documented By: Admin: 12/14/24 20:26 Dose: 40 mg Documented By: kassy Admin: 12/13/24 20:28 Dose: 40 mg Documented By: Admin: 12/12/24 20:11 Dose: 40 mg Documented By: LUIS Umeclidinium [place] (Umeclidinium [place] 62.5mcg/Blister 7 Puffs/Inhaler) 1 puffs INH DAILY [facility] Stop: 01/11/25 12:44 Last Admin: 12/18/24 08:50 Dose: 1 puffs Documented By: Admin: 12/17/24 09:29 Dose: Not Given Documented By: JOSE R Admin: 12/16/24 08:34 Dose: 1 puffs Documented By: Admin: 12/15/24 08:35 Dose: 1 puffs Documented By: Admin: 12/14/24 08:40 Dose: 1 puffs Documented By: alexandre Admin: 12/13/24 10:43 Dose: 1 puffs Documented By: alexandre Admin: 12/12/24 13:32 Dose: 1 puffs Documented By: ANA (3) COPD (chronic obstructive pulmonary disease) COPD type: COPD with acute exacerbation Qualified Code(s): J44.1 - Chronic obstructive pulmonary disease with (acute) exacerbation (4) CAD (coronary artery disease) Coronary Disease-Associated Artery/Lesion type: [place] artery Three Affiliated vs. transplanted heart: [place] heart Associated angina: without angina Qualified Code(s): I25.10 - Atherosclerotic heart disease of [place] coronary artery without angina pectoris
[2024-12-18 15:46] LABS: 7-Aminoclonaz, Confirm NEGATIVE ng/mL (<25); Hydro-Alp Ur, GC/MS 114 ng/mL (<25); Hydroxyethylflurazepam, Conf NEGATIVE ng/mL (<50); Hydroxymidazolam Ur, GC/MS NEGATIVE ng/mL (<50); Lorazepam, Ur GC/MS NEGATIVE ng/mL (<50); Nordiazepam, Confirm NEGATIVE ng/mL (<50); Oxazepam Ur, GC/MS NEGATIVE ng/mL (<50); Temazepam, Confirm NEGATIVE ng/mL (<50)
[2024-12-19 07:38] LABS: Hematocrit (blood only) 41.4 % (37.0-47.0); Hemoglobin 13.1 g/dl (12.0-16.0); Mean Corpuscular Hemoglobin 31.6 pg (25.0-34.0); Mean Corpuscular Volume 100.0 fL (80.0-100.0); Platelet Count 223 K/uL (130-400); RDW Standard Deviation 54.0 fL (36.4-46.3); Red Blood Count 4.14 M/uL (4.20-5.40); White Blood Count 6.14 K/ul (4.8-10.8)
[2024-12-19 08:00] LABS: Alanine Aminotransferase 19.0 U/L (7-52); Albumin Globulin Ratio 1.6 (0.9-2); Albumin Level 3.1 gm/dl (3.4-5.0); Alkaline Phosphatase 44.0 U/L (34-104); Anion Gap 3.0 (3-11); Bilirubin,Total 0.5 mg/dl (0.2-1.0); Blood Urea Nitrogen 23.0 mg/dl (6-23); Calcium 8.5 mg/dl (8.6-10.3); Carbon Dioxide 34.0 mmol/L (21-32); Chloride 107.0 mmol/L (98-107); Creatinine Clr Calc Pharmacy 69.8 ml/min; Globulin 2.0 gm/dl (2.5-4.0); Glucose 103.0 mg/dl (70-99(Fasting)); Potassium 3.6 mmol/L (3.5-5.1); Sodium 144.0 mmol/L (136-145); Total Protein 5.1 gm/dl (6.0-8.3)
[2024-12-19] MEDS: THIAMINE HCL 100 MG TAB PO SCH (08:15)
[2024-12-19] MEDS: FOLIC ACID 1 MG TAB PO SCH (08:15)
--- NOTE | 2024-12-19 15:23 | Hospitalist Progress Note ---
Date of Service December 19, 2024 Assessment & Plan (1) UTI (urinary tract infection): Plan: Patient is a 78 year old F with a past medical history of COPD, nocturnal hypoxia, CAD/CABG, history of atrial flutter, prediabetes, hypertension, hyperlipidemia, depression presenting with mechanical fall and possible syncope. Reportedly fell in the kitchen last night around 11pm, slipped on the floor and unable to get herself off the floor. Mechanical Fall Ambulatory dysfunction Generalized weakness Syncope -Imaging studies showed no signs of fractures -mechanical in nature per history Plan: -Continue PT OT, fall precautions -Case management to help with discharge plan -medically stable for discharge at this time #Metabolic Encephalopathy #Hyperactive Delirium #R/o Psychosis -has hx of psychiatric decompensation per son -showing signs of superimposed psychiatric illness as well (based off of hallucinations) -no signs or symptoms of infection -improving mental status today, MR head unremarkable Plan: -continue zyprexa 5mg PO at nighttime, appears to have helped -continue paroxetine -delirium precautions, avoid antipsychotics/restraints unless harm to self -downtitrate xanax to 0.75 mg at night given hyperactive delirium (25% reduction) -downtitrate to 0.5mg at discharge, continue downtitration outpatient -psych consult, appreciate recs Hematuria -resolved, Advised to follow-up with urology as outpatient for possible cystoscopy Acute bronchitis, resolved -no cough or symptoms of infection Constipation -Continue bowel regimen Elevated D-dimer -CTA showed no PE -Venous Doppler showed no DVT COPD Tobacco use disorder Chronic oxygen dependency--on 3 L at bedtime -55 pack-year, active smoker at 1 pack daily-> Nicotine patch ordered -Continue home inhalers -Continue supplemental oxygen at bedtime CAD Hyperlipidemia -Continue Coreg, lisinopril, isosorbide, Crestor -Resume aspirin as able Hypertension -Continue Coreg, lisinopril, amlodipine -Also on isosorbide Updated son on plan of care who was appreciate of the update and agreeable with plan. I spent a total of 40 minutes in direct patient care, including [id number] time with the patient and/or family, reviewing medical records, ordering and reviewing diagnostic tests, and coordinating care with other healthcare providers. This time includes: history taking, physical examination, medical decision making, counseling, ECG interpretation, imaging interpretation, lab interpretation, orders, and education, excluding time spent in the performance of separately billed services. (2) Accident due to mechanical fall without injury: (3) COPD (chronic obstructive pulmonary disease): (4) CAD (coronary artery disease): (5) Hyperlipidemia: (6) Anxiety and depression: Admission and Anticipated Discharge Date Admission Date: December 12, 2024 Subjective Patient seen and examined at bedside. Patient doing much better today. Alert and orriented x3. Still feels slightly scared but doing better overall. Review of Systems Review of Systems: CONSTITUTIONAL: scared, anxious EYES: Patient denies any visual symptoms. EARS, NOSE, AND THROAT: No difficulties with hearing. No symptoms of rhinitis or sore throat. CARDIOVASCULAR: Patient denies chest pains, palpitations, orthopnea and paroxysmal nocturnal dyspnea. RESPIRATORY: No dyspnea on exertion, no wheezing or cough. GI: No nausea, vomiting, diarrhea, constipation, abdominal pain, hematochezia or melena. : No urinary hesitancy or dribbling. No nocturia or urinary frequency. No abnormal urethral discharge. MUSCULOSKELETAL: No myalgias or arthralgias. NEUROLOGIC: No chronic headaches, no seizures. Patient denies numbness, tingling or weakness. PSYCHIATRIC: mild paranoia ENDOCRINE: No excessive urination or excessive thirst. DERMATOLOGIC: Patient denies any rashes or skin changes. Physical Exam Physical Exam: Gen: A&O 3 NAD HEENT: NCAT, EOMI, not icteric. External ears normal. No rhinorrhea. Moist mucous membranes. Neck: Supple, full range of motion, no observable masses, No meningeal sign. Lungs: No Respiratory distress. CV: RRR, no edema. Abdomen: Soft, nondistended, No rebound tenderness. MSK: No joint swelling, no redness. Skin: No rashes, petechiae, lesions. Normal color per patient. Neuro: moving all extremities Psych: slight paranoia Results & Data Results & Data Vital Signs (Past 12 Hours) Vital Signs Temp Pulse Resp BP BP Pulse Ox O2 Del Method 12/19/24 10:57 36.2 C L 62 18 96/61 L 89 L Room Air 12/19/24 08:00 Nasal Cannula 12/19/24 07:44 36.6 C 73 18 136/75 91 Nasal Cannula O2 Flow Rate 12/19/24 10:57 12/19/24 08:00 3 12/19/24 07:44 2 Laboratory Results -personally reviewed, creatinine around baseline Medications Administered Acetaminophen (Acetaminophen 325 Mg Tab) 650 mg PO Q4H PRN PRN Reason: Pain or Fever Stop: 01/11/25 14:52 Last Admin: 12/19/24 08:12 Dose: 650 mg Documented By: Admin: 12/18/24 21:43 Dose: 650 mg Documented By: hui Admin: 12/18/24 09:04 Dose: 650 mg Documented By: Admin: 12/17/24 20:07 Dose: 650 mg Documented By: hui Admin: 12/13/24 01:19 Dose: 650 mg Documented By: Admin: 12/12/24 20:08 Dose: 650 mg Documented By: Admin: 12/12/24 15:23 Dose: 650 mg Documented By: ANA Albuterol (Albuterol Hfa 8 Gm Inhaler) 2 puffs INH Q6H PRN PRN Reason: SHORT OF BREATH Stop: 01/11/25 12:33 Last Admin: 12/12/24 13:12 Dose: 2 puffs Documented By: ANA Alprazolam (Alprazolam 0.25 Mg Tablet) 0.75 mg PO HS HUSSEIN Stop: 01/16/25 20:59 Last Admin: 12/18/24 21:42 Dose: 0.75 mg Documented By: hui Admin: 12/17/24 21:41 Dose: 0.75 mg Documented By: HOWARD Amlodipine Besylate (Amlodipine Besylate 5 Mg Tab) [facility] [place] Stop: 01/12/25 13:14 Last Admin: 12/19/24 08:14 Dose: 5 mg Documented By: Admin: 12/18/24 08:50 Dose: 5 mg Documented By: Admin: 12/17/24 09:29 Dose: Not Given Documented By: JOSE R Admin: 12/14/24 08:40 Dose: 5 mg Documented By: alexandre Admin: 12/13/24 13:23 Dose: 5 mg Documented By: alexandre Aspirin (Aspirin 81 Mg Ectab) 81 mg PO QAM HUSSEIN Stop: 01/13/25 11:29 Last Admin: 12/19/24 08:14 Dose: 81 mg Documented By: Admin: 12/18/24 08:50 Dose: 81 mg Documented By: Admin: 12/17/24 09:29 Dose: Not Given Documented By: JOSE R Admin: 12/16/24 08:32 Dose: 81 mg Documented By: Admin: 12/15/24 08:30 Dose: 81 mg Documented By: Admin: 12/14/24 11:37 Dose: 81 mg Documented By: alexandre Carvedilol (Carvedilol 3.125 Mg Tab) 3.125 mg PO BID HUSSEIN Stop: 01/11/25 20:59 Last Admin: 12/19/24 08:14 Dose: 3.125 mg Documented By: Admin: 12/18/24 21:43 Dose: 3.125 mg Documented By: hui Admin: 12/18/24 08:49 Dose: 3.125 mg Documented By: Admin: 12/17/24 20:09 Dose: 3.125 mg Documented By: hui Admin: 12/17/24 09:29 Dose: Not Given Documented By: JOSE R Admin: 12/16/24 20:12 Dose: 3.125 mg Documented By: Admin: 12/16/24 08:30 Dose: 3.125 mg Documented By: Admin: 12/15/24 21:43 Dose: Not Given Documented By: Admin: 12/15/24 08:32 Dose: 3.125 mg Documented By: Admin: 12/14/24 20:26 Dose: 3.125 mg Documented By: kassy Admin: 12/14/24 08:39 Dose: 3.125 mg Documented By: alexandre Admin: 12/13/24 20:27 Dose: 3.125 mg Documented By: Admin: 12/13/24 09:12 Dose: 3.125 mg Documented By: alexandre Admin: 12/12/24 20:10 Dose: 3.125 mg Documented By: LUIS Cyanocobalamin (Cyanocobalamin (B-12) 500 Mcg Tablet) 1,000 mcg PO HS HUSSEIN Stop: 01/11/25 20:59 Last Admin: 12/18/24 21:43 Dose: 1,000 mcg Documented By: hui Admin: 12/17/24 20:10 Dose: 1,000 mcg Documented By: hui Admin: 12/16/24 20:16 Dose: Not Given Documented By: Admin: 12/15/24 21:44 Dose: Not Given Documented By: Admin: 12/14/24 20:25 Dose: 1,000 mcg Documented By: kassy Admin: 12/13/24 20:28 Dose: 1,000 mcg Documented By: Admin: 12/12/24 20:11 Dose: 1,000 mcg Documented By: LUIS Docusate Sodium (Docusate Sodium 100 Mg Cap) 100 mg PO BID HUSSEIN Stop: 01/11/25 20:59 Last Admin: 12/19/24 08:12 Dose: 100 mg Documented By: Admin: 12/18/24 21:43 Dose: 100 mg Documented By: hui Admin: 12/18/24 08:49 Dose: 100 mg Documented By: Admin: 12/17/24 20:09 Dose: 100 mg Documented By: hui Admin: 12/17/24 09:29 Dose: Not Given Documented By: JOSE R Admin: 12/16/24 20:16 Dose: Not Given Documented By: Admin: 12/16/24 08:41 Dose: 100 mg Documented By: Admin: 12/15/24 21:44 Dose: Not Given Documented By: Admin: 12/15/24 08:37 Dose: 100 mg Documented By: Admin: 12/14/24 20:27 Dose: 100 mg Documented By: kassy Admin: 12/14/24 08:39 Dose: 100 mg Documented By: alexandre Admin: 12/13/24 20:26 Dose: 100 mg Documented By: Admin: 12/13/24 09:11 Dose: 100 mg Documented By: alexandre Admin: 12/12/24 20:08 Dose: 100 mg Documented By: LUIS Enoxaparin Sodium (Enoxaparin Inj 40 Mg/0.4 Ml Syr) 40 mg SQ Q24H HUSSEIN Stop: 01/11/25 15:29 Last Admin: 12/12/24 15:26 Dose: 40 mg Documented By: ANA Fluticasone/Vilanterol (Fluticasone/Vilanterol 100/25mcg 14 Puffs/Inhaler) 1 puffs INH QAM HUSSEIN Stop: 01/11/25 12:44 Last Admin: 12/19/24 08:14 Dose: 1 puffs Documented By: Admin: 12/18/24 08:50 Dose: 1 puffs Documented By: Admin: 12/17/24 09:29 Dose: Not Given Documented By: JOSE R Admin: 12/16/24 08:34 Dose: 1 puffs Documented By: Admin: 12/15/24 08:35 Dose: 1 puffs Documented By: Admin: 12/14/24 08:40 Dose: 1 puffs Documented By: alexandre Admin: 12/13/24 10:43 Dose: 1 puffs Documented By: alexandre Admin: 12/12/24 13:33 Dose: 1 puffs Documented By: ANA Folic Acid (Folic Acid 1 Mg Tab) 1 mg PO DAILY HUSSEIN Stop: 01/18/25 08:59 Last Admin: 12/19/24 08:15 Dose: 1 mg Documented By: REZA Isosorbide Mononitrate (Isosorbide [place] Extended Rel 60 Mg Tabcr) 60 mg PO QAM HUSSEIN Stop: 01/12/25 08:59 Last Admin: 12/19/24 08:13 Dose: 60 mg Documented By: Admin: 12/18/24 08:49 Dose: 60 mg Documented By: Admin: 12/17/24 09:29 Dose: Not Given Documented By: JOSE R Admin: 12/16/24 08:32 Dose: 60 mg Documented By: Admin: 12/15/24 08:33 Dose: 60 mg Documented By: Admin: 12/14/24 08:39 Dose: 60 mg Documented By: alexandre Admin: 12/13/24 09:11 Dose: 60 mg Documented By: alexanrde Lisinopril (Lisinopril 40 Mg Tab) 40 mg PO QAM HUSSEIN Stop: 01/12/25 08:59 Last Admin: 12/19/24 08:14 Dose: 40 mg Documented By: Admin: 12/18/24 08:49 Dose: 40 mg Documented By: Admin: 12/17/24 09:29 Dose: Not Given Documented By: JOSE R Admin: 12/16/24 08:32 Dose: 40 mg Documented By: Admin: 12/15/24 08:33 Dose: 40 mg Documented By: Admin: 12/14/24 08:39 Dose: 40 mg Documented By: alexandre Admin: 12/13/24 09:12 Dose: 40 mg Documented By: alexandre Melatonin (Melatonin 3 Mg Tab) 6 mg PO HS PRN PRN Reason: Sleep Stop: 01/16/25 20:29 Last Admin: 12/18/24 21:43 Dose: 6 mg Documented By: hui Admin: 12/17/24 21:41 Dose: 6 mg Documented By: HOWARD Miscellaneous (Remove Nicoderm Patch) 1 each N/A DAILY@[id number] [facility] Stop: 01/12/25 08:58 Last Admin: 12/19/24 08:16 Dose: 1 each Documented By: Admin: 12/18/24 08:50 Dose: 1 each Documented By: Admin: 12/17/24 09:29 Dose: Not Given Documented By: JOSE R Admin: 12/16/24 08:33 Dose: 1 each Documented By: Admin: 12/15/24 08:35 Dose: 1 each Documented By: Admin: 12/14/24 09:32 Dose: 1 each Documented By: alexandre Admin: 12/13/24 10:16 Dose: 1 each Documented By: alexandre Nicotine (Nicotine 14 Mg/24 Hr Patch) [facility] patch [facility] [place] Stop: 01/11/25 11:59 Last Admin: 12/19/24 08:13 Dose: 1 patch Documented By: Admin: 12/18/24 08:50 Dose: 1 patch Documented By: Admin: 12/17/24 09:28 Dose: 1 patch Documented By: JOSE R Admin: 12/16/24 08:33 Dose: 1 patch Documented By: Admin: 12/15/24 08:33 Dose: 1 patch Documented By: Admin: 12/14/24 08:40 Dose: 1 patch Documented By: alexandre Admin: 12/13/24 10:43 Dose: 1 patch Documented By: alexandre Admin: 12/12/24 12:17 Dose: 1 patch Documented By: ANA Olanzapine (Olanzapine 5 Mg Tablet) 5 mg PO HS [facility] Stop: 01/17/25 20:59 Last Admin: 12/18/24 21:43 Dose: 5 mg Documented By: hui Ondansetron HCl (Ondansetron Inj 2 Mg/Ml 2 Ml Vial) 4 mg IV Q6H PRN PRN Reason: Nausea Stop: 01/11/25 14:52 Last Admin: 12/13/24 15:31 Dose: 4 mg Documented By: MARIA ELENA Admin: 12/13/24 09:39 Dose: 4 mg Documented By: alexandre Paroxetine HCl (Paroxetine Hcl 20 Mg Tab) 60 mg PO DAILY HUSSEIN Stop: 01/12/25 08:59 Last Admin: 12/19/24 08:16 Dose: 60 mg Documented By: Admin: 12/18/24 08:49 Dose: 60 mg Documented By: Admin: 12/17/24 09:29 Dose: Not Given Documented By: JOSE R Admin: 12/16/24 08:30 Dose: 60 mg Documented By: Admin: 12/15/24 08:31 Dose: 60 mg Documented By: Admin: 12/14/24 08:39 Dose: 60 mg Documented By: alexandre Admin: 12/13/24 09:12 Dose: 60 mg Documented By: alexandre Rosuvastatin Calcium (Rosuvastatin Calcium 20 Mg Tab) 40 mg PO HS HUSESIN Stop: 01/11/25 20:59 Last Admin: 12/18/24 21:43 Dose: 40 mg Documented By: hui Admin: 12/17/24 20:08 Dose: 40 mg Documented By: hui Admin: 12/16/24 20:16 Dose: Not Given Documented By: Admin: 12/15/24 21:44 Dose: Not Given Documented By: Admin: 12/14/24 20:26 Dose: 40 mg Documented By: kassy Admin: 12/13/24 20:28 Dose: 40 mg Documented By: Admin: 12/12/24 20:11 Dose: 40 mg Documented By: LUIS Thiamine HCl (Thiamine Hcl 100 Mg Tab) 100 mg PO DAILY HUSSEIN Stop: 01/18/25 08:59 Last Admin: 12/19/24 08:15 Dose: 100 mg Documented By: REZA Umeclidinium [place] (Umeclidinium [place] 62.5mcg/Blister 7 Puffs/Inhaler) 1 puffs INH DAILY HUSSEIN Stop: 01/11/25 12:44 Last Admin: 12/19/24 08:16 Dose: 1 puffs Documented By: Admin: 12/18/24 08:50 Dose: 1 puffs Documented By: Admin: 12/17/24 09:29 Dose: Not Given Documented By: JOSE R Admin: 12/16/24 08:34 Dose: 1 puffs Documented By: Admin: 12/15/24 08:35 Dose: 1 puffs Documented By: Admin: 12/14/24 08:40 Dose: 1 puffs Documented By: alexander Admin: 12/13/24 10:43 Dose: 1 puffs Documented By: alexandre Admin: 12/12/24 13:32 Dose: 1 puffs Documented By: ANA (3) COPD (chronic obstructive pulmonary disease) COPD type: COPD with acute exacerbation Qualified Code(s): J44.1 - Chronic obstructive pulmonary disease with (acute) exacerbation (4) CAD (coronary artery disease) Coronary Disease-Associated Artery/Lesion type: [place] artery [place] vs. transplanted heart: [place] heart Associated angina: without angina Qualified Code(s): I25.10 - Atherosclerotic heart disease of [place] coronary artery without angina pectoris
[2024-12-20 07:33] LABS: Hematocrit (blood only) 41.7 % (37.0-47.0); Hemoglobin 14.1 g/dl (12.0-16.0); Mean Corpuscular Hemoglobin 33.5 pg (25.0-34.0); Mean Corpuscular Volume 99.0 fL (80.0-100.0); Platelet Count 236 K/uL (130-400); RDW Standard Deviation 52.7 fL (36.4-46.3); Red Blood Count 4.21 M/uL (4.20-5.40); White Blood Count 5.86 K/ul (4.8-10.8)
[2024-12-20 07:42] VITALS: RESP 18
[2024-12-20 07:52] LABS: Alanine Aminotransferase 24.0 U/L (7-52); Albumin Globulin Ratio 1.5 (0.9-2); Albumin Level 3.5 gm/dl (3.4-5.0); Alkaline Phosphatase 51.0 U/L (34-104); Anion Gap 3.0 (3-11); Bilirubin,Total 0.5 mg/dl (0.2-1.0); Blood Urea Nitrogen 21.0 mg/dl (6-23); Calcium 8.8 mg/dl (8.6-10.3); Carbon Dioxide 34.0 mmol/L (21-32); Chloride 106.0 mmol/L (98-107); Creatinine Clr Calc Pharmacy 80.1 ml/min; Globulin 2.3 gm/dl (2.5-4.0); Glucose 103.0 mg/dl (70-99(Fasting)); Potassium 3.8 mmol/L (3.5-5.1); Sodium 143.0 mmol/L (136-145); Total Protein 5.8 gm/dl (6.0-8.3)
--- NOTE | 2024-12-20 13:18 | Hospitalist Progress Note ---
Date of Service December 20, 2024 Assessment & Plan (1) UTI (urinary tract infection): Plan: Patient is a 78 year old F with a past medical history of COPD, nocturnal hypoxia, CAD/CABG, history of atrial flutter, prediabetes, hypertension, hyperlipidemia, depression presenting with mechanical fall and possible syncope. Reportedly fell in the kitchen last night around 11pm, slipped on the floor and unable to get herself off the floor. Mechanical Fall Ambulatory dysfunction Generalized weakness Syncope -Imaging studies showed no signs of fractures -mechanical in nature per history Plan: -Continue PT OT, fall precautions -Case management to help with discharge plan -medically stable for discharge at this time #Metabolic Encephalopathy #Hyperactive Delirium #R/o Psychosis -has hx of psychiatric decompensation per son -showing signs of superimposed psychiatric illness as well (based off of hallucinations) -no signs or symptoms of infection -improving mental status today, MR head unremarkable Plan: -continue zyprexa 5mg PO at nighttime, appears to have helped -continue paroxetine -delirium precautions, avoid antipsychotics/restraints unless harm to self -downtitrate xanax to 0.75 mg at night given hyperactive delirium (25% reduction) -downtitrate to 0.5mg at discharge, continue downtitration outpatient -psych consult, appreciate recs Hematuria -resolved, Advised to follow-up with urology as outpatient for possible cystoscopy Acute bronchitis, resolved -no cough or symptoms of infection Constipation -Continue bowel regimen Elevated D-dimer -CTA showed no PE -Venous Doppler showed no DVT COPD Tobacco use disorder Chronic oxygen dependency--on 3 L at bedtime -55 pack-year, active smoker at 1 pack daily-> Nicotine patch ordered -Continue home inhalers -Continue supplemental oxygen at bedtime CAD Hyperlipidemia -Continue Coreg, lisinopril, isosorbide, Crestor -Resume aspirin as able Hypertension -Continue Coreg, lisinopril, amlodipine -Also on isosorbide Updated son on plan of care who was appreciate of the update and agreeable with plan. I spent a total of 40 minutes in direct patient care, including [id number] time with the patient and/or family, reviewing medical records, ordering and reviewing diagnostic tests, and coordinating care with other healthcare providers. This time includes: history taking, physical examination, medical decision making, counseling, ECG interpretation, imaging interpretation, lab interpretation, orders, and education, excluding time spent in the performance of separately billed services. (2) Accident due to mechanical fall without injury: (3) COPD (chronic obstructive pulmonary disease): (4) CAD (coronary artery disease): (5) Hyperlipidemia: (6) Anxiety and depression: Admission and Anticipated Discharge Date Admission Date: December 12, 2024 Subjective Patient seen and examined at bedside. Patient doing well today, no concerns at this time. Review of Systems Review of Systems: CONSTITUTIONAL: scared, anxious EYES: Patient denies any visual symptoms. EARS, NOSE, AND THROAT: No difficulties with hearing. No symptoms of rhinitis or sore throat. CARDIOVASCULAR: Patient denies chest pains, palpitations, orthopnea and paroxysmal nocturnal dyspnea. RESPIRATORY: No dyspnea on exertion, no wheezing or cough. GI: No nausea, vomiting, diarrhea, constipation, abdominal pain, hematochezia or melena. : No urinary hesitancy or dribbling. No nocturia or urinary frequency. No abnormal urethral discharge. MUSCULOSKELETAL: No myalgias or arthralgias. NEUROLOGIC: No chronic headaches, no seizures. Patient denies numbness, tingling or weakness. PSYCHIATRIC: mild paranoia ENDOCRINE: No excessive urination or excessive thirst. DERMATOLOGIC: Patient denies any rashes or skin changes. Physical Exam Physical Exam: Gen: A&O 3 NAD HEENT: NCAT, EOMI, not icteric. External ears normal. No rhinorrhea. Moist mucous membranes. Neck: Supple, full range of motion, no observable masses, No meningeal sign. Lungs: No Respiratory distress. CV: RRR, no edema. Abdomen: Soft, nondistended, No rebound tenderness. MSK: No joint swelling, no redness. Skin: No rashes, petechiae, lesions. Normal color per patient. Neuro: moving all extremities Psych: slight paranoia Results & Data Results & Data Vital Signs (Past 12 Hours) Vital Signs Temp Pulse Pulse Resp BP BP Pulse Ox 12/20/24 11:36 36.3 C L 60 18 129/74 93 12/20/24 07:43 60 12/20/24 07:42 36.7 C 76 18 159/78 H 92 12/20/24 03:46 36.7 C 62 16 156/92 H 92 O2 Del Method O2 Flow Rate 12/20/24 11:36 Nasal Cannula 2 12/20/24 07:43 12/20/24 07:42 Room Air 12/20/24 03:46 Nasal Cannula 2 Laboratory Results -personally reviewed, no leukocytosis, creatinine at baseline Medications Administered Acetaminophen (Acetaminophen 325 Mg Tab) 650 mg PO Q4H PRN PRN Reason: Pain or Fever Stop: 01/11/25 14:52 Last Admin: 12/20/24 06:47 Dose: 650 mg Documented By: hui Admin: 12/19/24 21:02 Dose: 650 mg Documented By: hui Admin: 12/19/24 08:12 Dose: 650 mg Documented By: Admin: 12/18/24 21:43 Dose: 650 mg Documented By: hui Admin: 12/18/24 09:04 Dose: 650 mg Documented By: Admin: 12/17/24 20:07 Dose: 650 mg Documented By: hui Admin: 12/13/24 01:19 Dose: 650 mg Documented By: Admin: 12/12/24 20:08 Dose: 650 mg Documented By: Admin: 12/12/24 15:23 Dose: 650 mg Documented By: ANA Albuterol (Albuterol Hfa 8 Gm Inhaler) 2 puffs INH Q6H PRN PRN Reason: SHORT OF BREATH Stop: 01/11/25 12:33 Last Admin: 12/12/24 13:12 Dose: 2 puffs Documented By: ANA Alprazolam (Alprazolam 0.25 Mg Tablet) 0.75 mg PO HS [facility] Stop: 01/16/25 20:59 Last Admin: 12/19/24 21:03 Dose: 0.75 mg Documented By: hui Admin: 12/18/24 21:42 Dose: 0.75 mg Documented By: hui Admin: 12/17/24 21:41 Dose: 0.75 mg Documented By: HOWARD Amlodipine Besylate (Amlodipine Besylate 5 Mg Tab) [facility] Stop: 01/12/25 13:14 Last Admin: 12/20/24 08:29 Dose: 5 mg Documented By: Admin: 12/19/24 08:14 Dose: 5 mg Documented By: Admin: 12/18/24 08:50 Dose: 5 mg Documented By: Admin: 12/17/24 09:29 Dose: Not Given Documented By: JOSE R Admin: 12/14/24 08:40 Dose: 5 mg Documented By: alexandre Admin: 12/13/24 13:23 Dose: 5 mg Documented By: alexandre Aspirin (Aspirin 81 Mg Ectab) 81 mg PO QAM HUSSEIN Stop: 01/13/25 11:29 Last Admin: 12/20/24 08:29 Dose: 81 mg Documented By: Admin: 12/19/24 08:14 Dose: 81 mg Documented By: Admin: 12/18/24 08:50 Dose: 81 mg Documented By: Admin: 12/17/24 09:29 Dose: Not Given Documented By: JOSE R Admin: 12/16/24 08:32 Dose: 81 mg Documented By: Admin: 12/15/24 08:30 Dose: 81 mg Documented By: Admin: 12/14/24 11:37 Dose: 81 mg Documented By: alexandre Carvedilol (Carvedilol 3.125 Mg Tab) 3.125 mg PO BID HUSSEIN Stop: 01/11/25 20:59 Last Admin: 12/20/24 08:30 Dose: 3.125 mg Documented By: Admin: 12/19/24 21:02 Dose: 3.125 mg Documented By: [facility] Admin: 12/19/24 08:14 Dose: 3.125 mg Documented By: Admin: 12/18/24 21:43 Dose: 3.125 mg Documented By: [facility] Admin: 12/18/24 08:49 Dose: 3.125 mg Documented By: Admin: 12/17/24 20:09 Dose: 3.125 mg Documented By: [facility] Admin: 12/17/24 09:29 Dose: Not Given Documented By: JOSE R Admin: 12/16/24 20:12 Dose: 3.125 mg Documented By: Admin: 12/16/24 08:30 Dose: 3.125 mg Documented By: Admin: 12/15/24 21:43 Dose: Not Given Documented By: Admin: 12/15/24 08:32 Dose: 3.125 mg Documented By: Admin: 12/14/24 20:26 Dose: 3.125 mg Documented By: kassy Admin: 12/14/24 08:39 Dose: 3.125 mg Documented By: alexandre Admin: 12/13/24 20:27 Dose: 3.125 mg Documented By: Admin: 12/13/24 09:12 Dose: 3.125 mg Documented By: alexandre Admin: 12/12/24 20:10 Dose: 3.125 mg Documented By: LUIS Cyanocobalamin (Cyanocobalamin (B-12) 500 Mcg Tablet) 1,000 mcg PO HS HUSSEIN Stop: 01/11/25 20:59 Last Admin: 12/19/24 21:03 Dose: 1,000 mcg Documented By: hui Admin: 12/18/24 21:43 Dose: 1,000 mcg Documented By: [facility] Admin: 12/17/24 20:10 Dose: 1,000 mcg Documented By: hui Admin: 12/16/24 20:16 Dose: Not Given Documented By: Admin: 12/15/24 21:44 Dose: Not Given Documented By: Admin: 12/14/24 20:25 Dose: 1,000 mcg Documented By: kassy Admin: 12/13/24 20:28 Dose: 1,000 mcg Documented By: Admin: 12/12/24 20:11 Dose: 1,000 mcg Documented By: LUIS Docusate Sodium (Docusate Sodium 100 Mg Cap) 100 mg PO BID HUSSEIN Stop: 01/11/25 20:59 Last Admin: 12/20/24 08:34 Dose: 100 mg Documented By: Admin: 12/19/24 21:02 Dose: 100 mg Documented By: [facility] Admin: 12/19/24 08:12 Dose: 100 mg Documented By: Admin: 12/18/24 21:43 Dose: 100 mg Documented By: [facility] Admin: 12/18/24 08:49 Dose: 100 mg Documented By: Admin: 12/17/24 20:09 Dose: 100 mg Documented By: [facility] Admin: 12/17/24 09:29 Dose: Not Given Documented By: JOSE R Admin: 12/16/24 20:16 Dose: Not Given Documented By: Admin: 12/16/24 08:41 Dose: 100 mg Documented By: Admin: 12/15/24 21:44 Dose: Not Given Documented By: Admin: 12/15/24 08:37 Dose: 100 mg Documented By: Admin: 12/14/24 20:27 Dose: 100 mg Documented By: kassy Admin: 12/14/24 08:39 Dose: 100 mg Documented By: alexandre Admin: 12/13/24 20:26 Dose: 100 mg Documented By: Admin: 12/13/24 09:11 Dose: 100 mg Documented By: alexandre Admin: 12/12/24 20:08 Dose: 100 mg Documented By: LUIS Enoxaparin Sodium (Enoxaparin Inj 40 Mg/0.4 Ml Syr) 40 mg SQ Q24H HUSSEIN Stop: 01/11/25 15:29 Last Admin: 12/12/24 15:26 Dose: 40 mg Documented By: ANA Fluticasone/Vilanterol (Fluticasone/Vilanterol 100/25mcg 14 Puffs/Inhaler) 1 puffs INH QAM HUSSEIN Stop: 01/11/25 12:44 Last Admin: 12/20/24 08:31 Dose: 1 puffs Documented By: Admin: 12/19/24 08:14 Dose: 1 puffs Documented By: Admin: 12/18/24 08:50 Dose: 1 puffs Documented By: Admin: 12/17/24 09:29 Dose: Not Given Documented By: JOSE R Admin: 12/16/24 08:34 Dose: 1 puffs Documented By: Admin: 12/15/24 08:35 Dose: 1 puffs Documented By: Admin: 12/14/24 08:40 Dose: 1 puffs Documented By: alexandre Admin: 12/13/24 10:43 Dose: 1 puffs Documented By: alexandre Admin: 12/12/24 13:33 Dose: 1 puffs Documented By: ANA Folic Acid (Folic Acid 1 Mg Tab) 1 mg PO DAILY HUSSEIN Stop: 01/18/25 08:59 Last Admin: 12/20/24 08:30 Dose: 1 mg Documented By: Admin: 12/19/24 08:15 Dose: 1 mg Documented By: REZA Isosorbide Mononitrate (Isosorbide [place] Extended Rel 60 Mg Tabcr) 60 mg PO QAM HUSSEIN Stop: 01/12/25 08:59 Last Admin: 12/20/24 08:29 Dose: 60 mg Documented By: Admin: 12/19/24 08:13 Dose: 60 mg Documented By: Admin: 12/18/24 08:49 Dose: 60 mg Documented By: Admin: 12/17/24 09:29 Dose: Not Given Documented By: JOSE R Admin: 12/16/24 08:32 Dose: 60 mg Documented By: Admin: 12/15/24 08:33 Dose: 60 mg Documented By: Admin: 12/14/24 08:39 Dose: 60 mg Documented By: alexanrde Admin: 12/13/24 09:11 Dose: 60 mg Documented By: alexandre Lisinopril (Lisinopril 40 Mg Tab) 40 mg PO QAM HUSSEIN Stop: 01/12/25 08:59 Last Admin: 12/20/24 08:30 Dose: 40 mg Documented By: Admin: 12/19/24 08:14 Dose: 40 mg Documented By: Admin: 12/18/24 08:49 Dose: 40 mg Documented By: Admin: 12/17/24 09:29 Dose: Not Given Documented By: JOSE R Admin: 12/16/24 08:32 Dose: 40 mg Documented By: Admin: 12/15/24 08:33 Dose: 40 mg Documented By: Admin: 12/14/24 08:39 Dose: 40 mg Documented By: alexandre Admin: 12/13/24 09:12 Dose: 40 mg Documented By: alexandre Melatonin (Melatonin 3 Mg Tab) 6 mg PO HS PRN PRN Reason: Sleep Stop: 01/16/25 20:29 Last Admin: 12/19/24 21:03 Dose: 6 mg Documented By: [facility] Admin: 12/18/24 21:43 Dose: 6 mg Documented By: [facility] Admin: 12/17/24 21:41 Dose: 6 mg Documented By: MED Miscellaneous (Remove Nicoderm Patch) 1 each N/A DAILY@0859 [facility] Stop: 01/12/25 08:58 Last Admin: 12/20/24 08:45 Dose: 1 each Documented By: Admin: 12/19/24 08:16 Dose: 1 each Documented By: Admin: 12/18/24 08:50 Dose: 1 each Documented By: Admin: 12/17/24 09:29 Dose: Not Given Documented By: JOSE R Admin: 12/16/24 08:33 Dose: 1 each Documented By: Admin: 12/15/24 08:35 Dose: 1 each Documented By: Admin: 12/14/24 09:32 Dose: 1 each Documented By: alexandre Admin: 12/13/24 10:16 Dose: 1 each Documented By: alexandre Nicotine (Nicotine 14 Mg/24 Hr Patch) 1 patch TD QAM HUSSEIN Stop: 01/11/25 11:59 Last Admin: 12/20/24 08:29 Dose: 1 patch Documented By: Admin: 12/19/24 08:13 Dose: 1 patch Documented By: Admin: 12/18/24 08:50 Dose: 1 patch Documented By: Admin: 12/17/24 09:28 Dose: 1 patch Documented By: JOSE R Admin: 12/16/24 08:33 Dose: 1 patch Documented By: Admin: 12/15/24 08:33 Dose: 1 patch Documented By: Admin: 12/14/24 08:40 Dose: 1 patch Documented By: alexandre Admin: 12/13/24 10:43 Dose: 1 patch Documented By: alexandre Admin: 12/12/24 12:17 Dose: 1 patch Documented By: ANA Olanzapine (Olanzapine 5 Mg Tablet) 5 mg PO HUSSEIN Stop: 01/17/25 20:59 Last Admin: 12/19/24 21:04 Dose: 5 mg Documented By: hui Admin: 12/18/24 21:43 Dose: 5 mg Documented By: hui Ondansetron HCl (Ondansetron Inj 2 Mg/Ml 2 Ml Vial) 4 mg IV Q6H PRN PRN Reason: Nausea Stop: 01/11/25 14:52 Last Admin: 12/13/24 15:31 Dose: 4 mg Documented By: MARIA ELENA Admin: 12/13/24 09:39 Dose: 4 mg Documented By: alexandre Paroxetine HCl (Paroxetine Hcl 20 Mg Tab) 60 mg PO DAILY HUSSEIN Stop: 01/12/25 08:59 Last Admin: 12/20/24 08:30 Dose: 60 mg Documented By: Admin: 12/19/24 08:16 Dose: 60 mg Documented By: Admin: 12/18/24 08:49 Dose: 60 mg Documented By: Admin: 12/17/24 09:29 Dose: Not Given Documented By: JOSE R Admin: 12/16/24 08:30 Dose: 60 mg Documented By: Admin: 12/15/24 08:31 Dose: 60 mg Documented By: Admin: 12/14/24 08:39 Dose: 60 mg Documented By: alexandre Admin: 12/13/24 09:12 Dose: 60 mg Documented By: alexandre Rosuvastatin Calcium (Rosuvastatin Calcium 20 Mg Tab) 40 mg PO HS HUSSEIN Stop: 01/11/25 20:59 Last Admin: 12/19/24 21:01 Dose: 40 mg Documented By: hui Admin: 12/18/24 21:43 Dose: 40 mg Documented By: hui Admin: 12/17/24 20:08 Dose: 40 mg Documented By: hui Admin: 12/16/24 20:16 Dose: Not Given Documented By: Admin: 12/15/24 21:44 Dose: Not Given Documented By: Admin: 12/14/24 20:26 Dose: 40 mg Documented By: kassy Admin: 12/13/24 20:28 Dose: 40 mg Documented By: Admin: 12/12/24 20:11 Dose: 40 mg Documented By: LUIS Thiamine HCl (Thiamine Hcl 100 Mg Tab) 100 mg PO DAILY HUSSEIN Stop: 01/18/25 08:59 Last Admin: 12/20/24 08:30 Dose: 100 mg Documented By: Admin: 12/19/24 08:15 Dose: 100 mg Documented By: REZA Umeclidinium Lisman (Umeclidinium [place]isman 62.5mcg/Blister 7 Puffs/Inhaler) 1 puffs INH DAILY HUSSEIN Stop: 01/11/25 12:44 Last Admin: 12/20/24 08:31 Dose: 1 puffs Documented By: Admin: 12/19/24 08:16 Dose: 1 puffs Documented By: Admin: 12/18/24 08:50 Dose: 1 puffs Documented By: Admin: 12/17/24 09:29 Dose: Not Given Documented By: JOSE R Admin: 12/16/24 08:34 Dose: 1 puffs Documented By: Admin: 12/15/24 08:35 Dose: 1 puffs Documented By: Admin: 12/14/24 08:40 Dose: 1 puffs Documented By: alexandre Admin: 12/13/24 10:43 Dose: 1 puffs Documented By: alexandre Admin: 12/12/24 13:32 Dose: 1 puffs Documented By: ANA (3) COPD (chronic obstructive pulmonary disease) COPD type: COPD with acute exacerbation Qualified Code(s): J44.1 - Chronic obstructive pulmonary disease with (acute) exacerbation (4) CAD (coronary artery disease) Coronary Disease-Associated Artery/Lesion type: [place] artery [place] vs. transplanted heart: [place] heart Associated angina: without angina Qualified Code(s): I25.10 - Atherosclerotic heart disease of [place] coronary artery without angina pectoris
[2024-12-20 15:24] VITALS: BP 172/105; TEMP 98.2; O2SAT 91
--- NOTE | 2024-12-20 15:54 | Discharge Summary ---
Discharge Summary Date of Service December 20, 2024 Principal Dx & Hospital Course #1 = Principal Diagnosis (1) UTI (urinary tract infection): Patient is a 78 year old F with a past medical history of COPD, nocturnal hypoxia, CAD/CABG, history of atrial flutter, prediabetes, hypertension, hyperlipidemia, depression presenting with mechanical fall and possible syncope. Reportedly fell in the kitchen last night around 11pm, slipped on the floor and unable to get herself off the floor. Mechanical Fall Ambulatory dysfunction Generalized weakness Syncope -Imaging studies showed no signs of fractures -mechanical in nature per history Plan: -Continue PT OT, fall precautions -Case management to help with discharge plan -medically stable for discharge at this time #Metabolic Encephalopathy #Hyperactive Delirium #R/o Psychosis -has hx of psychiatric decompensation per son -showing signs of superimposed psychiatric illness as well (based off of hallucinations) -no signs or symptoms of infection -improving mental status today, MR head unremarkable Plan: -continue zyprexa 5mg PO at nighttime, appears to have helped -continue paroxetine -delirium precautions, avoid antipsychotics/restraints unless harm to self -downtitrate xanax to 0.75 mg at night given hyperactive delirium (25% reduction) -downtitrate to 0.5mg at discharge, continue downtitration outpatient -psych consult, appreciate recs Hematuria -resolved, Advised to follow-up with urology as outpatient for possible cystoscopy Acute bronchitis, resolved -no cough or symptoms of infection Constipation -Continue bowel regimen Elevated D-dimer -CTA showed no PE -Venous Doppler showed no DVT COPD Tobacco use disorder Chronic oxygen dependency--on 3 L at bedtime -55 pack-year, active smoker at 1 pack daily-> Nicotine patch ordered -Continue home inhalers -Continue supplemental oxygen at bedtime CAD Hyperlipidemia -Continue Coreg, lisinopril, isosorbide, Crestor -Resume aspirin as able Hypertension -Continue Coreg, lisinopril, amlodipine -Also on isosorbide (2) Accident due to mechanical fall without injury: (3) COPD (chronic obstructive pulmonary disease): (4) CAD (coronary artery disease): (5) Hyperlipidemia: (6) Anxiety and depression: Notes For Next Care Provider 78 year old F with a past medical history of COPD, nocturnal hypoxia, CAD/CABG, history of atrial flutter, prediabetes, hypertension, hyperlipidemia, depression presenting with mechanical fall and possible syncope. Mechanical fall considered etiology, PT/OT recommended acute rehab. Course complicated by hyperactive delirium and paranoia, psychiatry consulted, recommended resuming zyprexa 5mg at bedtime (old medication for patient). Also began benzo taper as per psychiatry recommendations. On 12/20/2024 patient doing well and medically stable for discharge to acute rehab. To do: [ ] f/u with urology and psychiatry -Incidental Findings: carotid atherosclerosis, atelectasis, pulmonary arterial hypertension, cardiomegaly, hiatal hernia, esophagitis, osteopenia, osteoarthritis Medication Changes From Visit -zyprexa Admission HPI Per Admitting Provider Patient is a 78 year old F with a past medical history of COPD, nocturnal hypoxia, CAD/CABG, history of atrial flutter, prediabetes, hypertension, hyperlipidemia, depression presenting with mechanical fall and possible syncope. Reportedly fell in the kitchen last night around 11pm, slipped on the floor and unable to get herself off the floor. Patient thinks she may have passed out and awoke around 3am, then had to maneuver around apartment on buttocks because she couldn't stand up. Previous ankle injury s/p fracture repair several years ago. Found to have UTI in ED. Patient reports feeling "off" since receiving the Covid vaccine ~2 weeks ago. Had symptoms of chills, post-nasal drip, fatigue. Doesn't recall receiving treatment but thinks she was on a medicine "with 2 different medicines in one"; as per external chart review, patient was prescribed Augmentin on 11/25/24. Reports having a headache upon arrival to the ED and thinks she may have hit her head when falling, or possibly passed out. Also having chronic right ankle issues from an old fracture s/p surgical repair. Now feels the right ankle has " black tape wrapped around the ankle and squeezing". Denies fever, weight loss, cognitive changes, dizziness, vision/hearing changes, chest pain, palpitations, SOB, difficulty breathing, urinary concerns, N/V/D,skin rashes, lesions, bleeding, bruising. In the emergency department, patient was hemodynamically stable, afebrile, and with no evidence of sepsis. CT head with no acute findings. Chest Xray without acute cardiopulmonary abnormalities are identified. Cervical/Lumbar CT, Hip/Pelvis/Knee Xray all without evidence of fracture. Urine + ketones, leuko esterase, calcium oxalate, mucous. Ceftriaxone started. Urine culture pending. Clinically dry with elevated BUN//Creat ratio 23.7. NSS 1 L given in ED. No evidence of CINDY on labs. Possible syncope per patient report. EKG reassuring showing sinus rhythm, vent rate 71 bpm, QTc 404. As per external chart review, patient was seen by Internal Medicine on 11/25/24 for sinusitis and prescribed Augmentin 10 day course. Bilateral lower leg edema appears to be a chronic issue as noted on Family Medicine note 09/24/24. Noncompliance with Imdur noted on that record. Patient follows [facility] and last seen in 06/2024. History obtained primarily from the patient and via hospitalization record. The patient's family was not at the bedside; patient contacted her son who reportedly lives locally. External chart review obtained from [facility]. Discharge Exam Gen: A&O 3 NAD HEENT: NCAT, EOMI, not icteric. External ears normal. No rhinorrhea. Moist mucous membranes. Neck: Supple, full range of motion, no observable masses, No meningeal sign. Lungs: No Respiratory distress. CV: RRR, no edema. Abdomen: Soft, nondistended, No rebound tenderness. MSK: No joint swelling, no redness. Skin: No rashes, petechiae, lesions. Normal color per patient. Neuro: moving all extremities Psych: slight paranoia Updated Medication List Medication Instructions Recorded Confirmed Type ascorbic acid (vitamin C) 1,000 mg 500 mg PO QAM 05/10/18 12/12/24 History tablet (Vitamin C) aspirin 81 mg tablet,delayed 81 mg PO QAM 05/10/18 12/12/24 History release calcium 600 mg (as carbonate)-vit 1 tab PO DAILY 05/10/18 12/12/24 History D3 20 mcg (800 unit) chewable tablet (Caltrate plus D) omega 4-[id number]-mjh-fish oil 1,000 mg 1 cap PO HS 05/10/18 12/12/24 History (120 mg-180 mg) capsule (Fish Oil) paroxetine HCl 30 mg tablet 60 mg PO DAILY 05/10/18 12/12/24 History albuterol sulfate 90 mcg/actuation 2 puff inhalation Q6H PRN SHORT OF 01/14/19 12/12/24 History aerosol inhaler BREATH cyanocobalamin (vitamin B-12) 1,000 mcg PO HS 01/14/19 12/12/24 History 1,000 mcg tablet nitroglycerin 0.4 mg sublingual 0.4 mg sublingual DIRECTED PRN 01/14/19 12/12/24 History tablet Chest Pain sumatriptan succinate 100 mg tablet 100 mg PO UD PRN Migraine Headache 01/14/19 12/12/24 History rosuvastatin 40 mg tablet 40 mg PO HS 10/10/19 12/12/24 History umeclidinium 62.5 mcg/actuation 1 inh inhalation DAILY 02/10/20 12/12/24 History blister powder for inhalation (Incruse Ellipta) alprazolam 1 mg tablet 1 mg PO HS #10 tabs 02/18/20 12/12/24 Rx carvedilol 3.125 mg tablet 3.125 mg PO BID #60 tabs 11/14/21 12/12/24 Rx isosorbide mononitrate 60 mg 60 mg PO QAM #30 tabs 11/14/21 12/12/24 Rx tablet,extended release 24 hr carboxymethylcellulose sodium 1 % 1 drp OPB TID PRN Dry Eye(S) 03/18/23 12/12/24 History eye drops (Artificial Tears (carboxymethylcellulose)) amlodipine 5 mg tablet 5 mg PO QAM 06/01/23 12/12/24 History fluticasone furoate 100 1 inh inhalation QAM 05/10/24 12/12/24 History mcg-vilanterol 25 mcg/dose inhalation powder (Breo Ellipta) hydroxyzine HCl 25 mg tablet 25 mg PO TID PRN Anxiety 05/10/24 12/12/24 History nicotine 7 mg/24 hr daily 1 patch transdermal QAM #14 ea 05/14/24 12/12/24 Rx transdermal patch Saccharomyces boulardii 250 mg 250 mg PO BID 12/12/24 12/12/24 History capsule (Florastor) trazodone 50 mg tablet 50 mg PO DIRECTED 12/12/24 12/12/24 History alprazolam 0.25 mg tablet 0.5 mg (2 x 0.25 mg) PO HS #14 tabs 12/20/24 Rx lisinopril 40 mg tablet 40 mg PO QAM #30 tabs 12/20/24 Rx olanzapine 5 mg tablet 5 mg PO HS #30 tabs 12/20/24 Rx Hospital Stay Data Consultations 12/12/24 10:27 ED Decision to Admit Stat 12/18/24 08:04 Consult Psychiatry Routine Diagnostic Imagining Performed 12/12/24 06:10 CT cervical spine wo con Stat CT head/brain wo con Stat CT lumbar spine wo con Stat 12/12/24 12:41 US venous doppler LE BI Stat 12/12/24 12:59 CT angio chest PE protocol Stat 12/13/24 07:32 US carotid doppler BI Routine 12/16/24 09:24 CT head/brain wo con Urgent 12/17/24 08:51 MR brain wo/w con Urgent Pending Results Patient Have Any Pending Studies at Discharge: No Discharge Instructions Given to Patient (Per Discharging Provider) Diagnosis: mechanical fall, syncope, weakness, delirium, paranoia resolving Follow Ups: PCP, psychiatrist, urologist Incidental Findings: carotid atherosclerosis, atelectasis, pulmonary arterial hypertension, cardiomegaly, hiatal hernia, esophagitis, osteopenia, osteoarthritis --Follow-up with your primary care physician Dr. Barrios in 1 week --Follow-up with your urologist for possible cystoscopy as outpatient to further evaluate reason for blood in urine --Consider getting ZIO monitor as outpatient to rule out any arrhythmias as you are suspected to have a possible syncopal episode --Monitor your blood pressure regularly as advised and discuss with your primary care physician for further adjustment of medications as needed --follow up with psychiatry and take medications as prescribed Total Time Total Time Spent Total Time Spent (In Minutes): I spent a total of 35 minutes in direct patient care, including [id number] time with the patient and/or family, reviewing medical records, ordering and reviewing diagnostic tests, and coordinating care with other healthcare providers. This time includes: history taking, physical examination, medical decision making, counseling, ECG interpretation, imaging interpretation, lab interpretation, orders, and education, excluding time spent in the performance of separately billed services.
[2024-12-20 15:59] VITALS: PULSE 61
--- NOTE | 2024-12-21 21:38 | Electrocardiogram Report ---
Test Reason : Blood Pressure : */* mmHG Vent. Rate : 83 BPM Atrial Rate : 83 BPM P-R Int : 160 ms QRS Dur : 96 ms QT Int : 340 ms P-R-T Axes : 56 -19 88 degrees QTcB Int : 399 ms Normal sinus rhythm Nonspecific ST and T wave abnormality Abnormal ECG When compared with ECG of 15-Dec-2024 23:37, No significant change was found Confirmed by Farhat Vazquez ([id number]) on 12/21/2024 9:38:24 PM Referred By: REFERRED SELF Confirmed By: Farhat Vazquez
== END 2024-12-20 18:34 | DRG 689 ==
LOC: ED 05:20 → EDINP 11:15 → SUATTDRO 11:15 → 2W 14:53